=== PATIENT | male | born 1935 | race Caucasian/White ===

== ENCOUNTER → 2016-06-13 | Day surgery (SDC) | payer MEDICARE, MEDICAID ==
[~2016-06-13] VITALS: Ht 162.6 cm; Wt 67.1 kg
[~2016-06-13] MED LIST: /PANT40TA; /QUET10TA; ALBU17IN2; AMAR1TAB; AMAR1TAB5 PO; AMOX875T2 PO; AVOD0.5C; BACITAB3 PO; BACT800T5 PO; CIPR250T3; CITR1SOL PO; COLA100C PO; COLA100C2; CONRAY-60 60% 50ML VIAL (Q9961) As Ordered ONE; DEBR6.5S4 AU; DOXY-278 PO; DULC10SU2 PR; INSULANT; IPRASOL4 NEB; LASI40TA; LEVA250T; LR 1,000 ML IV SCH; METO10TA2; MILKSUS PO; MIRA33504 PO; MIRALEX; NOVOLOG100 MG/ML; NYSTATIN; OSCA200T PO; OYST500T; OYST500T76; OYSTER SHELL CA; PAXI30TA; PAXI30TA11 PO; PAXI40TA; PERI0.126 MT; PRAV40TA; PRAV40TA2 PO; PRIL20CA; PRIL20CA PO; QUET20XRTB; QUET20XRTB PO; QUET30TA; SENO8.6T10 PO; SIME125C; ceFAZolin 2 GM/D5W 50 ML IV BAG (J0690) As Ordered ONE
[2016-06-13 14:15] VITALS: BP 109/63
== END | disposition home or self-care (01) ==
LOC: M SDC 13:26
PROVIDERS: ATTEND Urology
DX: Z53.09 Procedure and treatment not carried out because of other contraindication (principal)
CPT/HCPCS: 36415; 86850; 86900; 86901; 87088; 87186; J0690

== ENCOUNTER 2016-06-26 10:42 | Emergency (ER) | payer MEDICARE, MEDICAID ==
[~2016-06-26] VITALS: Ht 162.6 cm; Wt 64.9 kg
[~2016-06-26 10:42] MED LIST changes: -CONRAY-60 60% 50ML VIAL (Q9961) As Ordered ONE; -LR 1,000 ML IV SCH; -PRIL20CA PO; +PRIL20CA9 PO; -ceFAZolin 2 GM/D5W 50 ML IV BAG (J0690) As Ordered ONE
[2016-06-26] MEDS ORDERED: ONDANSETRON 4MG/2ML VIAL (J2405) As Ordered ONE (11:32)
--- NOTE | 2016-06-26 12:10 | REP ---
Abdominal series: Three views. History: Abdominal pain. Findings: AP chest radiograph shows minimal interstitial fibrosis changes in the bases. No definite infiltrate is seen. Supine and cross-table lateral views of the abdomen show no evidence of free air. There is a right-sided percutaneous nephrostomy tube noted and surgical sutures are seen in the upper abdomen. There is formed stool in the proximal and distal colon including a mildly stool dilated rectum. There are degenerative facet changes in the lumbar spine. Impression: Constipation pattern with stool dilated rectum. Bibasilar interstitial fibrosis. Clips and sutures in the upper abdomen. A right nephrostomy tube. Signed by Antonio Brooks MD 06/26/2016 01:37 P
[2016-06-26 12:30] LABS: BASO % 0.1 % (0.0-1.0); LARGE UNSTAINED CELL # 0.2 K/mm3 (0.0-0.4); LARGE UNSTAINED CELL % 1.8 % (0.0-4.0); LYMPH # 0.6 K/mm3 (1.5-4.5); LYMPH % 4.6 % (24.0-44.0); MEAN CORPUSCULAR HEMOGLOBIN 28.6 pg (27.0-33.0); MEAN CORPUSCULAR HGB CONC 32.2 g/dl (32.0-36.5); MONO # 0.5 K/mm3 (0.0-0.8); MONO % 3.8 % (0.0-5.0); NEUTROPHILS # 11.4 K/mm3 (1.8-7.7); NEUTROPHILS % 89.7 % (36.0-66.0); PLATELET COUNT, AUTOMATED 276 k/mm3 (150-450); RED CELL DISTRIBUTION WIDTH 13.4 % (11.5-14.5); WHITE BLOOD COUNT 12.7 K/mm3 (4.0-10.0)
[2016-06-26 12:38] LABS: ALBUMIN 3.6 GM/DL (3.2-5.2); ALBUMIN/GLOBULIN RATIO 0.77 (1.00-1.93); ALKALINE PHOSPHATASE 116 U/L (45-117); ALT/SGPT 12 U/L (12-78); ANION GAP 11 MEQ/L (8-16); AST/SGOT 11 U/L (15-37); BILIRUBIN,DIRECT 0.1 MG/DL (0.0-0.2); BILIRUBIN,TOTAL 0.4 MG/DL (0.2-1.0); BLOOD UREA NITROGEN 35 MG/DL (7-18); CALCIUM LEVEL 9.2 MG/DL (8.8-10.2); CARBON DIOXIDE LEVEL 26 MEQ/L (21-32); CHLORIDE LEVEL 91 MEQ/L (98-107); CREATININE FOR GFR 2.08 MG/DL (0.70-1.30); GLOMERULAR FILTRATION RATE 32.6 (>35); POTASSIUM SERUM 4.8 MEQ/L (3.5-5.1); SODIUM LEVEL 128 MEQ/L (136-145); TOTAL PROTEIN 8.3 GM/DL (6.4-8.2)
[2016-06-26 12:40] LABS: GLUCOSE, FASTING 412 MG/DL (83-110)
[2016-06-26] MEDS ORDERED: HumuLIN R (REGULAR) INSULIN (NovoLIN R) **100U/ML** PER UNIT As Ordered ONE (12:53)
[2016-06-26] MEDS ORDERED: BISA10SU4 PR (17:04)
[2016-06-26] MEDS ORDERED: SENN1TAB2 PO (17:06)
[2016-06-26] MEDS ORDERED: BACT800T5 PO (17:06)
[2016-06-26] MEDS ORDERED: diphenhydrAMINE 25 MG CAP As Ordered ONE (18:27)
--- NOTE | 2016-06-26 18:45 | EDDOCDS ---
Nurse's Notes [facility] Name: Teddy Recio Age: 81 yrs Sex: Male : 1935 Arrival Date: 06/26/2016 Time: 10:42 Bed 8 Private MD: Diagnosis: Hypo-osmolality and hyponatremia;Hyperglycemia, unspecified;Nausea and vomiting;Constipation, unspecified;Other retention of urine Presentation: 06/26 11:11 Presenting complaint: Patient states: has hx of SBO - has been vomiting up brown bcj colored emesis today. no diarrhea. c/o upper abd pain when abd palpated. Adult Sepsis Screenin:11 Acuity: MAGEN Level 3 bc 11:11 Method Of Arrival: Ambulance j 11:15 Suicide/Homicide risk assessment- the patient denies having any suicidal and/or bcj homicidal ideations and does not present with any other emotional, behavioral or mental health complaints. Status: Patient is not a food service representative or dependent. Transition of care: patient was not received from another setting of care. 18:43 Adult Sepsis Screening: Patient's respiratory rate is less than 22. Systolic blood bcj pressure is greater than 100. Patient has a qSOFA score of 0- Negative Sepsis Screen. Triage Assessment: 11:17 General: Appears in no apparent distress, comfortable, Behavior is cooperative. Pain: bcj Location: epigastric area, right upper quadrant and left upper quadrant Pain currently is 5 out of 10 on a pain scale. GI: right nephrostomy tube intact to drainage bag on abdomen draining yellow urine. : Freedman in place to gravity drainage. Derm: Skin is pale, pink. Historical: - Allergies: no known allergies; - Home Meds: 1. Debrox 6.5 % Otic drop 1 drop each ear \T\HS every Sunday and Sunday 2. glimepiride 2 mg Oral tab 1 tab once daily 3. Dulcolax (bisacodyl) 10 mg Rectal supp 1 suppository once daily on day 4 without BM 4. Seroquel 200 mg Oral tab 1 tab once daily at 1630 5. pravastatin 40 mg oral tab 1 tab nightly 6. Colace 100 mg oral cap 1 cap 2 times per day 7. omeprazole 20 mg Oral cpDR 1 cap once daily 8. Paxil 20 mg Oral tab 1 tab nightly 9. Paxil 40 mg Oral tab 1 tab nightly 10. Miralax 17 gram Oral pwpk 1 packet once daily 11. chlorhexidine gluconate 0.12 % MM mwsh 15 mL 2 times per day 12. Milk of Magnesia 400 mg/5 mL Oral susp 15 mL PRN 13. Os-Ronald 500 + D3 500 mg(1,250mg) -200 unit oral tab 1 tab twice a day 14. senna 8.6 mg oral tab 1 tabs twice a day 15. Bacid oral cap twice a day 16. Bactrim DS 800-160 mg Oral tab 1 tab 2 times per day - PMHx: BPH; Diabetes - NIDDM: controlled; GERD; Hiatal Hernia; Hypercholesterolemia; Hypertension; [place]; MVP; Severe MR; - PSHx: TURP; - Social history: Smoking status: Patient states was never smoker of tobacco. No barriers to communication noted, The patient speaks fluent Khmer, Speaks appropriately for age. - Family history: Not pertinent. - : The pt / caregiver states he / she is not on anticoagulants. Home medication list is obtained from the facility MAR. - Exposure Risk Screening:: None identified. Screenin:43 Infection Control. deg 11:19 Screening information is obtained from residence staff. Fall risk: At risk due to bcj apparent cognitive impairment, The following interventions are performed due to a positive Fall Risk Screen: Fall Risk is added to Special Handling on the patient Summary Screen. A Fall Risk Bracelet was applied to the patient. Side Rails are placed in the up position. A Call Reed is given with instruction to call for help when getting out of bed. Fall Alert bracelet is placed on the patient. Assistance ADL's: Requires assistance with medication administration, assistance is provided by residence staff. Abuse/DV Screen: The patient / caregiver reports he/she is: not in a situation that causes fear, pain or injury. Nutritional screening: No deficits noted. Advance Directives: There is an active DNR order and the pt has a copy here at this time. home support is adequate. Assessment: 18:12 General: Appears in no apparent distress, comfortable, Behavior is cooperative. Pain: bcj Denies pain. GI: Bowel sounds present X 4 quads. Abd is soft and non tender X 4 quads. 18:41 General: Appears in no apparent distress, comfortable, Behavior is cooperative. Pain: bcj Denies pain. Respiratory: Airway is patent Respiratory effort is even, unlabored, Respiratory pattern is regular, Breath sounds are clear bilaterally. Derm: Rash noted that is red, on chest, abdomen, right arm, left arm, right leg and left leg. Vital Signs: 11:24 BP 144 / 84; Pulse 81; Resp 18; Temp 98.3(TE); Pulse Ox 94% on R/A; Weight 64.86 kg ct3 (R); Height 5 ft. 4 in. (162.56 cm) (R); 18:12 BP 134 / 64; Pulse 81; Resp 18; Temp 96.8(O); Pulse Ox 92% on R/A; Pain 0/10; bcj 11:24 Body Mass Index 24.55 (64.86 kg, 162.56 cm) ct3 Vitals: 11:17 Log In Time N/A - ambulance arrival. [facility] ED Course: 10:43 Patient visited by Mary Pettit, Surgical Dental Assistant. deg 10:43 Patient moved to Waiting deg 10:44 Kristi Fregoso MD is Attending Physician. fg 10:44 Patient moved to 8 deg 11:10 Patient visited by Kristi Fregoso MD. fg 11:13 Patient visited by Neo Whitley RN. bcj 11:13 Triage Initiated bcj 11:19 The patient / caregiver is instructed regarding the plan of care and ED course. bcj 11:20 Patient visited by Neo Whitley, HUGO. bcj 11:24 Accompanied by Caregiver, Patient has correct armband on for positive identification. ct3 Placed in gown. Bed in low position. Call light in reach. Side rails up X2. 11:25 Patient visited by Kerri العلي PCA. ct3 11:27 Patient visited by Neo Whitley, HUGO. bcj 12:06 Basic Metabolic Profile Sent. bcj 12:06 CBC with Diff Sent. bcj 12:06 Cardiac Injury Profile Sent. bcj 12:06 Lipase Sent. bcj 12:06 Liver Profile Sent. bcj 12:06 Troponin Sent. bcj 12:06 Urinalysis Sent. bcj 12:07 Urine Culture Sent. bcj 12:11 Patient visited by Neo Whitley, HUGO. bcj 12:33 Abdomen, Flat\E\Upright,PA Chest Returned. EDMS 12:58 Patient visited by Alcira Lawson RN. srm 14:29 Patient visited by Kerri العلي PCA. ct3 14:44 [facility] Payment Agreement was scanned into [employer] and attached to record. lg 15:13 Patient visited by Kerri العلي PCA. ct3 16:21 Patient visited by Kerri العلي PCA. ct3 16:51 Patient visited by Kerri العلي PCA. ct3 17:57 Patient visited by Kerri العلي PCA. ct3 17:57 Sterling Marcelino MD is Referral Physician. fg 18:12 No apparent distress. Resting quietly. Awaiting disposition. bcj 18:12 Inserted saline lock: 20 gauge. Labs drawn. (by ED staff). Sent per order to lab. bcj 18:14 Patient visited by Neo Whitley RN. bcj 18:41 No apparent distress. Resting quietly. Awaiting disposition. bcj 18:41 Discontinued lock intact. No procedures done that require assistance. bcj 18:44 Patient visited by Neo Whitley RN. bcj Administered Medications: 12:05 Drug: Ondansetron 4 mg Route: IVP; Site: left antecubital; bcj 12:06 Drug: NS 0.9% 500 ml [sodium chloride 0.9 % intravenous solution] Route: IV; Rate: bcj bolus; Site: left antecubital; 18:13 Follow up: IV Status: Completed infusion bcj 13:02 Drug: Insulin Regular Human 10 units [insulin regular human 100 unit/mL injection bcj solution (0.1 mL)] {Co-Signature: mk4 (Betzy North RN).} Route: IVP; Site: left antecubital; 17:33 Drug: NS 0.9% 500 ml [sodium chloride 0.9 % intravenous solution] Route: IV; Rate: bcj bolus; Site: left antecubital; 18:13 Follow up: IV Status: Completed infusion bcj 18:40 Drug: diphenhydrAMINE 25 mg [diphenhydramine 25 mg capsule (1 caps)] Route: PO; bcj Point of Care Testing: Blood Glucose: 18:05 Blood Glucose: 364 mg/dL; kcs Ranges: Order Results: Lab Order: Basic Metabolic Profile; SPEC'M 06/26/16 11:59 Test: GLUCOSE, FASTING; Value: 412; Range: 83-110; Abnormal: Above upper panic limits; Units: MG/DL; Status: F Test: BLOOD UREA NITROGEN; Value: 35; Range: 7-18; Abnormal: Above high normal; Units: MG/DL; Status: F Test: CREATININE FOR GFR; Value: 2.08; Range: 0.70-1.30; Abnormal: Above high normal; Units: MG/DL; Status: F Test: GLOMERULAR FILTRATION RATE; Value: 32.6; Range: >35; Abnormal: Below low normal; Status: F Test: SODIUM LEVEL; Value: 128; Range: 136-145; Abnormal: Below low normal; Units: MEQ/L; Status: F Test: POTASSIUM SERUM; Value: 4.8; Range: 3.5-5.1; Units: MEQ/L; Status: F Test: CHLORIDE LEVEL; Value: 91; Range: 98-107; Abnormal: Below low normal; Units: MEQ/L; Status: F Test: CARBON DIOXIDE LEVEL; Value: 26; Range: 21-32; Units: MEQ/L; Status: F Test: ANION GAP; Value: 11; Range: 8-16; Units: MEQ/L; Status: F Test: CALCIUM LEVEL; Value: 9.2; Range: 8.8-10.2; Units: MG/DL; Status: F Test Note: ; Units are mL/min/1.73 m2 Chronic Kidney Disease Staging per NKF: Stage I & II GFR >=60 Normal to Mildly Decreased Stage III GFR 30-59 Moderately Decreased Stage IV GFR 15-29 Severely Decreased Stage V GFR <15 Very Little GFR Left ESRD GFR <15 on ORDER DEPARTMENT SUPERVISOR Lab Order: CBC with Diff; SPEC'M 06/26/16 11:59 Test: WHITE BLOOD COUNT; Value: 12.7; Range: 4.0-10.0; Abnormal: Above high normal; Units: K/mm3; Status: F Test: RED BLOOD COUNT; Value: 4.26; Range: 4.30-6.10; Abnormal: Below low normal; Units: M/mm3; Status: F Test: HEMOGLOBIN; Value: 12.2; Range: 14.0-18.0; Abnormal: Below low normal; Units: g/dl; Status: F Test: HEMATOCRIT; Value: 37.9; Range: 42.0-52.0; Abnormal: Below low normal; Units: %; Status: F Test: MEAN CORPUSCULAR VOLUME; Value: 89.0; Range: 80.0-96.0; Units: fl; Status: F Test: MEAN CORPUSCULAR HEMOGLOBIN; Value: 28.6; Range: 27.0-33.0; Units: pg; Status: F Test: MEAN CORPUSCULAR HGB CONC; Value: 32.2; Range: 32.0-36.5; Units: g/dl; Status: F Test: RED CELL DISTRIBUTION WIDTH; Value: 13.4; Range: 11.5-14.5; Units: %; Status: F Test: PLATELET COUNT, AUTOMATED; Value: 276; Range: 150-450; Units: k/mm3; Status: F Test: NEUTROPHILS %; Value: 89.7; Range: 36.0-66.0; Abnormal: Above high normal; Units: %; Status: F Test: LYMPH %; Value: 4.6; Range: 24.0-44.0; Abnormal: Below low normal; Units: %; Status: F Test: MONO %; Value: 3.8; Range: 0.0-5.0; Units: %; Status: F Test: EOS %; Value: 0.0; Range: 0.0-3.0; Units: %; Status: F Test: BASO %; Value: 0.1; Range: 0.0-1.0; Units: %; Status: F Test: LARGE UNSTAINED CELL %; Value: 1.8; Range: 0.0-4.0; Units: %; Status: F Test: NEUTROPHILS #; Value: 11.4; Range: 1.8-7.7; Abnormal: Above high normal; Units: K/mm3; Status: F Test: LYMPH #; Value: 0.6; Range: 1.5-4.5; Abnormal: Below low normal; Units: K/mm3; Status: F Test: MONO #; Value: 0.5; Range: 0.0-0.8; Units: K/mm3; Status: F Test: EOS #; Value: 0.0; Range: 0.0-0.50; Units: K/mm3; Status: F Test: BASO #; Value: 0.0; Range: 0.0-0.2; Units: K/mm3; Status: F Test: LARGE UNSTAINED CELL #; Value: 0.2; Range: 0.0-0.4; Units: K/mm3; Status: F Lab Order: Cardiac Injury Profile; [facility]' 06/26/16 11:59 Test: CPK CREATINE PHOSPHOKINASE; Value: 33; Range: 39-308; Abnormal: Below low normal; Units: U/L; Status: F Test: CK-MB VALUE MASS; Value: 2.9; Range: 0.0-3.6; Units: NG/ML; Status: F Test: MB/CK RELATIVE INDEX; Value: 8.78; Range: < OR =4; Abnormal: Above high normal; Status: F Test Note: ; DIAGNOSIS CRITERIA MMB ng/ml Relative Index (RI) NON-AMI < or = 5 N/A PURDY ZONE > 5 < or = 4 AMI > 5 > 4 Lab Order: Lipase; [facility]' 06/26/16 11:59 Test: LIPASE; Value: 283; Range: 73-393; Units: U/L; Status: F Lab Order: Liver Profile; [facility]' 06/26/16 11:59 Test: AST/SGOT; Value: 11; Range: 15-37; Abnormal: Below low normal; Units: U/L; Status: F Test: ALT/SGPT; Value: 12; Range: 12-78; Units: U/L; Status: F Test: ALKALINE PHOSPHATASE; Value: 116; Range: 45-117; Units: U/L; Status: F Test: BILIRUBIN,TOTAL; Value: 0.4; Range: 0.2-1.0; Units: MG/DL; Status: F Test: BILIRUBIN,DIRECT; Value: 0.1; Range: 0.0-0.2; Units: MG/DL; Status: F Test: TOTAL PROTEIN; Value: 8.3; Range: 6.4-8.2; Abnormal: Above high normal; Units: GM/DL; Status: F Test: ALBUMIN; Value: 3.6; Range: 3.2-5.2; Units: GM/DL; Status: F Test: ALBUMIN/GLOBULIN RATIO; Value: 0.77; Range: 1.00-1.93; Abnormal: Below low normal; Status: F Lab Order: Troponin; SPEC'M 06/26/16 11:59 Test: TROPONIN I; Value: < 0.02; Range: < 0.10; Units: NG/ML; Status: F Test Note: ; Troponin I Reference Interval for Siemens [place] LOCI: 99th Percentile= 0.00-0.045 ng/ml Risk Stratification: <= 0.10 ng/ml Decreased Risk for Adverse Clinical Events. 0.10-1.50 ng/ml Increased Risk for Adverse Clinical Events. Evaluation of additional criterion and/or repeat testing in 2-6 hours is suggested to rule out myocardial damage. >= 1.50 ng/ml Indicative of Myocardial Injury. Lab Order: Urinalysis; SPEC'M 06/26/16 11:59 Test: APPEARANCE, URINE; Value: TURBID; Range: CLEAR; Abnormal: Above high normal; Status: F Test: COLOR, URINE; Value: YELLOW; Range: YELLOW; Status: F Test: PH,URINE; Value: 5.0; Range: 5.0-9.0; Units: UNITS; Status: F Test: SPECIFIC GRAVITY URINE AUTO; Value: 1.013; Range: 1.002-1.035; Status: F Test: PROTEIN, URINE AUTO; Value: 2+; Range: NEGATIVE; Abnormal: Above high normal; Units: mg/dL; Status: F Test: GLUCOSE, URINE (UA) AUTO; Value: 3+; Range: NEGATIVE; Abnormal: Above high normal; Units: mg/dL; Status: F Test: KETONE, URINE AUTO; Value: NEGATIVE; Range: NEGATIVE; Units: mg/dL; Status: F Test: UROBILINOGEN, URINE AUTO; Value: 0.2; Range: 0.0-2.0; Units: mg/dL; Status: F Test: BILIRUBIN, URINE AUTO; Value: NEGATIVE; Range: NEGATIVE; Status: F Test: NITRITE, URINE AUTO; Value: NEGATIVE; Range: NEGATIVE; Status: F Test: LEUKOCYTE ESTERASE, URINE AUTO; Value: 3+; Range: NEGATIVE; Abnormal: Above high normal; Status: F Test: BLOOD, URINE BLOOD; Value: 2+; Range: NEGATIVE; Abnormal: Above high normal; Status: F Test: WBC, URINE AUTO; Value: TNTC; Range: 0-3; Abnormal: Above high normal; Units: /HPF; Status: F Test: RBC, URINE AUTO; Value: 28; Range: 0-3; Abnormal: Above high normal; Units: /HPF; Status: F Test: BACTERIA, URINE AUTO; Value: 1+; Range: NEGATIVE; Abnormal: Above high normal; Status: F Test: SQUAMOUS EPITHELIAL CELL UR AU; Value: 3; Range: 0-6; Units: /HPF; Status: F Test: HYALINE CAST, URINE AUTO; Value: 0; Range: 0-1; Units: /LPF; Status: F Test: AMORPHOUS SEDIMENT; Value: SMALL; Range: NEGATIVE; Abnormal: Above high normal; Status: F Lab Order: Fingerstick Blood Sugar; SPEC'M 06/26/16 17:57 Test: BEDSIDE GLUCOSE; Value: 364; Range: 83-110; Abnormal: Above high normal; Units: MG/DL; Status: F Test Note: ; Dr Order not to Draw Doctor Notified Radiology Order: Abdomen, Flat\E\Upright,PA Chest Test: Abdomen, Flat\E\Upright,PA Chest REASON FOR EXAMINATION: Abdomen Pain; Abdominal series: Three views.; ; History: Abdominal pain.; ; Findings: AP chest radiograph shows minimal interstitial fibrosis changes in the; bases. No definite infiltrate is seen. Supine and cross-table lateral views of; the abdomen show no evidence of free air. There is a right-sided percutaneous; nephrostomy tube noted and surgical sutures are seen in the upper abdomen. There; is formed stool in the proximal and distal colon including a mildly stool dilated; rectum. There are degenerative facet changes in the lumbar spine.; ; Impression:; ; Constipation pattern with stool dilated rectum. Bibasilar interstitial; fibrosis. Clips and sutures in the upper abdomen. A right nephrostomy tube.; ; ; Signed by; Antonio Brooks MD 06/26/2016 01:37 P; Outcome: 18:00 Discharge ordered by Provider. fg 18:12 Discharge Assessment: patient administered narcotics - no. j 18:41 The following High Risk Discharge criteria are identified: None. Discharged to home [facility] ambulatory, with family. Condition: stable. Discharge instructions given to patient, Instructed on discharge instructions, follow up and referral plans. medication usage, Prescriptions given X 1. CT Study completed. Property :Personal belongings accompany Pt. 18:44 Patient left the ED. [facility] Signatures: Dispatcher [employer] EDYuly Diez, RN RN Mary Hooper, Surgical Dental Assistant Unit deg Neo Whitley RN RN Alcira Peters, RN RN srm Josafat Cartwright, Reg Reg lg العلي, Kerri, PROCESS CONTROL TECHNICIAN PROCESS CONTROL TECHNICIAN ct3 Kristi Fregoso MD MD Betzy North RN mk4 MTDD
--- NOTE | 2016-06-26 18:45 | EDDOCDS ---
Physician Documentation [facility] Name: Teddy Recio Age: 81 yrs Sex: Male : 1935 Arrival Date: 06/26/2016 Time: 10:42 Bed 8 Private MD: Disposition: 06/26/16 18:00 Discharged to Home/Self Care. Impression: Hypo-osmolality and hyponatremia, Hyperglycemia, unspecified, Nausea and vomiting, Constipation, unspecified, Other retention of urine. - Condition is Stable. - Discharge Instructions: Constipation, Adult, Nausea and Vomiting, [id number], Hyponatremia, [id number], Hyperglycemia, [id number]. - Medication Reconciliation, Local Pharmacy Hours form. - Follow up: Sterling Marcelino MD; When: Call to arrange an appointment; Reason: Continuance of care. - Problem is new. - Symptoms have improved. - Notes: You have been evalutaed for your nausea and vomitting and found to have urinary retention which was resolved when your duran was changed. Your lab results showed a low sodium of 128, we gave 500cc of normal saline. The hospitalist stated you did not have to be admitted for this. You had a high blood sugar that improved after insulin. Your CT showed some constipation so we discussed how you should likely have an enema to help with your constipation. Please follow up in 24 hours for a re-evaluation. Historical: - Allergies: no known allergies; - Home Meds: 1. Debrox 6.5 % Otic drop 1 drop each ear \T\HS every Sunday and Sunday 2. glimepiride 2 mg Oral tab 1 tab once daily 3. Dulcolax (bisacodyl) 10 mg Rectal supp 1 suppository once daily on day 4 without BM 4. Seroquel 200 mg Oral tab 1 tab once daily at 1630 5. pravastatin 40 mg oral tab 1 tab nightly 6. Colace 100 mg oral cap 1 cap 2 times per day 7. omeprazole 20 mg Oral cpDR 1 cap once daily 8. Paxil 20 mg Oral tab 1 tab nightly 9. Paxil 40 mg Oral tab 1 tab nightly 10. Miralax 17 gram Oral pwpk 1 packet once daily 11. chlorhexidine gluconate 0.12 % MM mwsh 15 mL 2 times per day 12. Milk of Magnesia 400 mg/5 mL Oral susp 15 mL PRN 13. Os-Ronald 500 + D3 500 mg(1,250mg) -200 unit oral tab 1 tab twice a day 14. senna 8.6 mg oral tab 1 tabs twice a day 15. Bacid oral cap twice a day 16. Bactrim DS 800-160 mg Oral tab 1 tab 2 times per day - PMHx: BPH; Diabetes - NIDDM: controlled; GERD; Hiatal Hernia; Hypercholesterolemia; Hypertension; [place]; MVP; Severe MR; - PSHx: TURP; - Social history: Smoking status: Patient states was never smoker of tobacco. No barriers to communication noted, The patient speaks fluent Albanian, Speaks appropriately for age. - Family history: Not pertinent. - : The pt / caregiver states he / she is not on anticoagulants. Home medication list is obtained from the facility MAR. - Exposure Risk Screening:: None identified. Vital Signs: 06/26 11:24 BP 144 / 84; Pulse 81; Resp 18; Temp 98.3(TE); Pulse Ox 94% on R/A; Weight 64.86 kg / ct3 142.99 lbs (R); Height 5 ft. 4 in. (162.56 cm) (R); 18:12 BP 134 / 64; Pulse 81; Resp 18; Temp 96.8(O); Pulse Ox 92% on R/A; Pain 0/10; bcj 11:24 Body Mass Index 24.55 (64.86 kg, 162.56 cm) ct3 MDM: 10:45 Undress patient appropriately for examination ordered. fg 10:45 Abdomen, Flat\E\Upright,PA Chest Ordered. EDMS 10:45 Basic Metabolic Profile Ordered. EDMS 10:45 CBC with Diff Ordered. EDMS 10:45 Cardiac Injury Profile Ordered. EDMS 10:45 Lipase Ordered. EDMS 10:45 Liver Profile Ordered. EDMS 10:45 Troponin Ordered. EDMS 10:45 Urinalysis Ordered. EDMS 10:45 Urine Culture Ordered. EDMS 10:46 NOTHING BY MOUTH+DIET ordered. EDMS 11:22 NS 0.9% 500 ml IV at bolus once ordered. fg 11:22 Ondansetron 4 mg IVP once ordered. fg 12:00 Financial registration complete. lg 12:41 Insulin Regular Human 10 units IVP once ordered. fg 13:14 CT ABD & PELVIS W/O CONTRAST Ordered. EDMS 14:44 [facility] Payment Agreement was scanned into [employer] and attached to record. lg 15:21 Duran ordered. fg 16:37 NS 0.9% 500 ml IV at bolus once ordered. fg 17:23 CLEAR LIQUID+DIET ordered. EDMS 18:08 Fingerstick Blood Sugar Ordered. EDMS 18:27 diphenhydrAMINE 25 mg PO once ordered. fg Point of Care Testing: Blood Glucose: 18:05 Blood Glucose: 364 mg/dL; kcs Ranges: Administered Medications: 12:05 Drug: Ondansetron 4 mg Route: IVP; Site: left antecubital; bcj 12:06 Drug: NS 0.9% 500 ml [sodium chloride 0.9 % intravenous solution] Route: IV; Rate: bcj bolus; Site: left antecubital; 18:13 Follow up: IV Status: Completed infusion bcj 13:02 Drug: Insulin Regular Human 10 units [insulin regular human 100 unit/mL injection bcj solution (0.1 mL)] {Co-Signature: mk4 (Betzy North RN).} Route: IVP; Site: left antecubital; 17:33 Drug: NS 0.9% 500 ml [sodium chloride 0.9 % intravenous solution] Route: IV; Rate: bcj bolus; Site: left antecubital; 18:13 Follow up: IV Status: Completed infusion bcj 18:40 Drug: diphenhydrAMINE 25 mg [diphenhydramine 25 mg capsule (1 caps)] Route: PO; bcj Signatures: Dispatcher [employer] EDNeo Lebron RN RN Josafat Metcalf, Reg Reg Kristi Fregoso MD MD Betzy North RN mk4 The chart was reviewed and I authenticate all verbal orders and agree with the evaluation and treatment provided.Corrections: (The following items were deleted from the chart) 13:14 10:46 CT ABD & PELVIS WITH CONTRAST+CT ordered. EDAK EDMS Attachments: 14:44 [facility] Payment Agreement lg MTDD
--- NOTE | 2016-06-26 20:47 | REP ---
CT of the abdomen and pelvis 06/26/2016 Indication: Pain Comparison: CT abdomen and pelvis 03/20/2016 per formed with IV contrast Findings: A large fluid-filled hiatal hernia of 10 cm maximal transverse dimension is unchanged. There is moderate gastric distension as well. The small bowel is without obstruction. Adrenal glands are normal. There is moderate left hydronephrosis and hydroureter with tapering of the distal left ureter above ureterovesical junction. There is mural thickening/mass in the region of the right bladder trigone again noted and not significantly changed. The patient has a right percutaneous nephrostomy this time. There is no evidence of right hydronephrosis. The small bowel is without obstruction. Abdominal aorta is of normal course and caliber. There are no pathologically enlarged retroperitoneal nodes. Significant bladder distension( measuring 21.6 cm cranial-caudal by 13 cm AP by 17.8 cm transverse dimension), is contributed to by mild prostatic hypertrophy. and mass within the right bladder trigone. There is no free air or ascites. Large amount of retained stool is identified throughout the colon with some sparing of the descending colon Impression 1. Significant bladder obstruction contributed to by thickening/mass within the right bladder trigone as well as prostatic hypertrophy with bladder outlet obstruction. Distended bladder measures 21.6 cm cranial-caudal by 13 cm AP by 17.8 cm transverse dimension . 2. Moderate left hydronephrosis and hydroureter tapering above the left ureterovesical junction. 3. Prior right percutaneous nephrostomy, in place. No right hydronephrosis. 4. Large amount of colonic constipation with sparing of the the descending colon. 5. 10 cm hiatal hernia, containing fluid, not significantly changed from prior study 03/20/16. Case discussed with Dr. Fregoso in Emergency Department 06/26/2016 at 02:08 p.m. Signed by Nannette Castañeda MD 06/26/2016 08:38 P
--- NOTE | 2016-06-28 19:45 | EDDOCDS ---
Physician Documentation [facility] Name: Teddy Recio Age: 81 yrs Sex: Male : 1935 Arrival Date: 06/26/2016 Time: 10:42 Bed 8 Private MD: Disposition: 06/26/16 18:00 Discharged to Home/Self Care. Impression: Hypo-osmolality and hyponatremia, Hyperglycemia, unspecified, Nausea and vomiting, Constipation, unspecified, Other retention of urine. - Condition is Stable. - Discharge Instructions: Constipation, Adult, Nausea and Vomiting, Ezyh-[id number]-[id number], Hyponatremia, Iuyj-nw-[id number], Hyperglycemia, Wksc-gz-Kgtk. - Medication Reconciliation, Local Pharmacy Hours form. - Follow up: Sterling Marcelino MD; When: Call to arrange an appointment; Reason: Continuance of care. - Problem is new. - Symptoms have improved. - Notes: You have been evalutaed for your nausea and vomitting and found to have urinary retention which was resolved when your duran was changed. Your lab results showed a low sodium of 128, we gave 500cc of normal saline. The hospitalist stated you did not have to be admitted for this. You had a high blood sugar that improved after insulin. Your CT showed some constipation so we discussed how you should likely have an enema to help with your constipation. Please follow up in 24 hours for a re-evaluation. Historical: - Allergies: no known allergies; - Home Meds: 1. Debrox 6.5 % Otic drop 1 drop each ear \T\HS every Sunday and Sunday 2. glimepiride 2 mg Oral tab 1 tab once daily 3. Dulcolax (bisacodyl) 10 mg Rectal supp 1 suppository once daily on day 4 without BM 4. Seroquel 200 mg Oral tab 1 tab once daily at 1630 5. pravastatin 40 mg oral tab 1 tab nightly 6. Colace 100 mg oral cap 1 cap 2 times per day 7. omeprazole 20 mg Oral cpDR 1 cap once daily 8. Paxil 20 mg Oral tab 1 tab nightly 9. Paxil 40 mg Oral tab 1 tab nightly 10. Miralax 17 gram Oral pwpk 1 packet once daily 11. chlorhexidine gluconate 0.12 % MM mwsh 15 mL 2 times per day 12. Milk of Magnesia 400 mg/5 mL Oral susp 15 mL PRN 13. Os-Ronald 500 + D3 500 mg(1,250mg) -200 unit oral tab 1 tab twice a day 14. senna 8.6 mg oral tab 1 tabs twice a day 15. Bacid oral cap twice a day 16. Bactrim DS 800-160 mg Oral tab 1 tab 2 times per day - PMHx: BPH; Diabetes - NIDDM: controlled; GERD; Hiatal Hernia; Hypercholesterolemia; Hypertension; VT; MVP; Severe MR; - PSHx: TURP; - Social history: Smoking status: Patient states was never smoker of tobacco. No barriers to communication noted, The patient speaks fluent Kinyarwanda, Speaks appropriately for age. - Family history: Not pertinent. - : The pt / caregiver states he / she is not on anticoagulants. Home medication list is obtained from the facility MAR. - Exposure Risk Screening:: None identified. Vital Signs: 06/26 11:24 BP 144 / 84; Pulse 81; Resp 18; Temp 98.3(TE); Pulse Ox 94% on R/A; Weight 64.86 kg / ct3 142.99 lbs (R); Height 5 ft. 4 in. (162.56 cm) (R); 18:12 BP 134 / 64; Pulse 81; Resp 18; Temp 96.8(O); Pulse Ox 92% on R/A; Pain 0/10; bcj 11:24 Body Mass Index 24.55 (64.86 kg, 162.56 cm) ct3 MDM: 10:45 Undress patient appropriately for examination ordered. fg 10:45 Abdomen, Flat\E\Upright,PA Chest Ordered. EDMS 10:45 Basic Metabolic Profile Ordered. EDMS 10:45 CBC with Diff Ordered. EDMS 10:45 Cardiac Injury Profile Ordered. EDMS 10:45 Lipase Ordered. EDMS 10:45 Liver Profile Ordered. EDMS 10:45 Troponin Ordered. EDMS 10:45 Urinalysis Ordered. EDMS 10:45 Urine Culture Ordered. EDMS 10:46 NOTHING BY MOUTH+DIET ordered. EDMS 11:22 NS 0.9% 500 ml IV at bolus once ordered. fg 11:22 Ondansetron 4 mg IVP once ordered. fg 12:00 Financial registration complete. lg 12:41 Insulin Regular Human 10 units IVP once ordered. fg 13:14 CT ABD & PELVIS W/O CONTRAST Ordered. EDMS 14:44 [facility] Payment Agreement was scanned into Nitro and attached to record. lg 15:21 Duran ordered. fg 16:37 NS 0.9% 500 ml IV at bolus once ordered. fg 17:23 CLEAR LIQUID+DIET ordered. EDMS 18:08 Fingerstick Blood Sugar Ordered. EDMS 18:27 diphenhydrAMINE 25 mg PO once ordered. fg 06/27 11:48 T-Sheet-- Draft Copy was scanned into Nitro and attached to record. Point of Care Testing: Blood Glucose: 06/26 18:05 Blood Glucose: 364 mg/dL; kcs Ranges: Administered Medications: 12:05 Drug: Ondansetron 4 mg Route: IVP; Site: left antecubital; bcj 12:06 Drug: NS 0.9% 500 ml [sodium chloride 0.9 % intravenous solution] Route: IV; Rate: bcj bolus; Site: left antecubital; 18:13 Follow up: IV Status: Completed infusion bcj 13:02 Drug: Insulin Regular Human 10 units [insulin regular human 100 unit/mL injection bcj solution (0.1 mL)] {Co-Signature: [email or web address] (Betzy North RN).} Route: IVP; Site: left antecubital; 17:33 Drug: NS 0.9% 500 ml [sodium chloride 0.9 % intravenous solution] Route: IV; Rate: bcj bolus; Site: left antecubital; 18:13 Follow up: IV Status: Completed infusion bcj 18:40 Drug: diphenhydrAMINE 25 mg [diphenhydramine 25 mg capsule (1 caps)] Route: PO; bcj Signatures: Dispatcher [employer] EDMS Neo Whitley RN RN bcMichelle Cerrato, Reg Reg Josafat Sanders, Reg Reg Kristi Houston MD MD Betzy North RN [email or web address] The chart was reviewed and I authenticate all verbal orders and agree with the evaluation and treatment provided.Corrections: (The following items were deleted from the chart) 13:14 10:46 CT ABD & PELVIS WITH CONTRAST+CT ordered. EDMS EDMS Attachments: 14:44 [facility] Payment Agreement 06/27 11:48 T-Sheet-- Draft Copy gb Chart Complete MTDD
--- NOTE | 2016-06-28 19:45 | EDDOCDS ---
Physician Documentation [facility] Name: Teddy Recio Age: 81 yrs Sex: Male : 1935 Arrival Date: 06/26/2016 Time: 10:42 Bed 8 Private MD: Disposition: 06/26/16 18:00 Discharged to Home/Self Care. Impression: Hypo-osmolality and hyponatremia, Hyperglycemia, unspecified, Nausea and vomiting, Constipation, unspecified, Other retention of urine. - Condition is Stable. - Discharge Instructions: Constipation, Adult, Nausea and Vomiting, Jyta-ax-Sajs, Hyponatremia, Xuua-id-Cfam, Hyperglycemia, Jkcp-nb-Noak. - Medication Reconciliation, Local Pharmacy Hours form. - Follow up: Sterling Marcelino MD; When: Call to arrange an appointment; Reason: Continuance of care. - Problem is new. - Symptoms have improved. - Notes: You have been evalutaed for your nausea and vomitting and found to have urinary retention which was resolved when your duran was changed. Your lab results showed a low sodium of 128, we gave 500cc of normal saline. The hospitalist stated you did not have to be admitted for this. You had a high blood sugar that improved after insulin. Your CT showed some constipation so we discussed how you should likely have an enema to help with your constipation. Please follow up in 24 hours for a re-evaluation. Historical: - Allergies: no known allergies; - Home Meds: 1. Debrox 6.5 % Otic drop 1 drop each ear \T\HS every Sunday and Sunday 2. glimepiride 2 mg Oral tab 1 tab once daily 3. Dulcolax (bisacodyl) 10 mg Rectal supp 1 suppository once daily on day 4 without BM 4. Seroquel 200 mg Oral tab 1 tab once daily at 1630 5. pravastatin 40 mg oral tab 1 tab nightly 6. Colace 100 mg oral cap 1 cap 2 times per day 7. omeprazole 20 mg Oral cpDR 1 cap once daily 8. Paxil 20 mg Oral tab 1 tab nightly 9. Paxil 40 mg Oral tab 1 tab nightly 10. Miralax 17 gram Oral pwpk 1 packet once daily 11. chlorhexidine gluconate 0.12 % MM mwsh 15 mL 2 times per day 12. Milk of Magnesia 400 mg/5 mL Oral susp 15 mL PRN 13. Os-Ronald 500 + D3 500 mg(1,250mg) -200 unit oral tab 1 tab twice a day 14. senna 8.6 mg oral tab 1 tabs twice a day 15. Bacid oral cap twice a day 16. Bactrim DS 800-160 mg Oral tab 1 tab 2 times per day - PMHx: BPH; Diabetes - NIDDM: controlled; GERD; Hiatal Hernia; Hypercholesterolemia; Hypertension; AK; MVP; Severe MR; - PSHx: TURP; - Social history: Smoking status: Patient states was never smoker of tobacco. No barriers to communication noted, The patient speaks fluent Malay, Speaks appropriately for age. - Family history: Not pertinent. - : The pt / caregiver states he / she is not on anticoagulants. Home medication list is obtained from the facility MAR. - Exposure Risk Screening:: None identified. Vital Signs: 06/26 11:24 BP 144 / 84; Pulse 81; Resp 18; Temp 98.3(TE); Pulse Ox 94% on R/A; Weight 64.86 kg / ct3 142.99 lbs (R); Height 5 ft. 4 in. (162.56 cm) (R); 18:12 BP 134 / 64; Pulse 81; Resp 18; Temp 96.8(O); Pulse Ox 92% on R/A; Pain 0/10; bcj 11:24 Body Mass Index 24.55 (64.86 kg, 162.56 cm) ct3 MDM: 10:45 Undress patient appropriately for examination ordered. fg 10:45 Abdomen, Flat\E\Upright,PA Chest Ordered. EDMS 10:45 Basic Metabolic Profile Ordered. EDMS 10:45 CBC with Diff Ordered. EDMS 10:45 Cardiac Injury Profile Ordered. EDMS 10:45 Lipase Ordered. EDMS 10:45 Liver Profile Ordered. EDMS 10:45 Troponin Ordered. EDMS 10:45 Urinalysis Ordered. EDMS 10:45 Urine Culture Ordered. EDMS 10:46 NOTHING BY MOUTH+DIET ordered. EDMS 11:22 NS 0.9% 500 ml IV at bolus once ordered. fg 11:22 Ondansetron 4 mg IVP once ordered. fg 12:00 Financial registration complete. lg 12:41 Insulin Regular Human 10 units IVP once ordered. fg 13:14 CT ABD & PELVIS W/O CONTRAST Ordered. EDMS 14:44 [facility] Payment Agreement was scanned into GBS and attached to record. lg 15:21 Duran ordered. fg 16:37 NS 0.9% 500 ml IV at bolus once ordered. fg 17:23 CLEAR LIQUID+DIET ordered. EDMS 18:08 Fingerstick Blood Sugar Ordered. EDMS 18:27 diphenhydrAMINE 25 mg PO once ordered. fg 06/27 11:48 T-Sheet-- Draft Copy was scanned into GBS and attached to record. Point of Care Testing: Blood Glucose: 06/26 18:05 Blood Glucose: 364 mg/dL; kcs Ranges: Administered Medications: 12:05 Drug: Ondansetron 4 mg Route: IVP; Site: left antecubital; bcj 12:06 Drug: NS 0.9% 500 ml [sodium chloride 0.9 % intravenous solution] Route: IV; Rate: bcj bolus; Site: left antecubital; 18:13 Follow up: IV Status: Completed infusion bcj 13:02 Drug: Insulin Regular Human 10 units [insulin regular human 100 unit/mL injection bcj solution (0.1 mL)] {Co-Signature: [email or web address] (Betzy North RN).} Route: IVP; Site: left antecubital; 17:33 Drug: NS 0.9% 500 ml [sodium chloride 0.9 % intravenous solution] Route: IV; Rate: bcj bolus; Site: left antecubital; 18:13 Follow up: IV Status: Completed infusion bcj 18:40 Drug: diphenhydrAMINE 25 mg [diphenhydramine 25 mg capsule (1 caps)] Route: PO; bcj Signatures: Dispatcher [employer] EDMS Neo Whitley RN RN bcMichelle Cerrato, Reg Reg Josafat Sanders, Reg Reg Kristi Houston MD MD Betzy North RN [email or web address] The chart was reviewed and I authenticate all verbal orders and agree with the evaluation and treatment provided.Corrections: (The following items were deleted from the chart) 13:14 10:46 CT ABD & PELVIS WITH CONTRAST+CT ordered. EDMS EDMS Attachments: 14:44 [facility] Payment Agreement 06/27 11:48 T-Sheet-- Draft Copy gb Chart Complete MTDD
--- NOTE | 2016-06-28 19:45 | EDDOCDS ---
Nurse's Notes [facility] Name: Teddy Recio Age: 81 yrs Sex: Male : 1935 Arrival Date: 06/26/2016 Time: 10:42 Bed 8 Private MD: Diagnosis: Hypo-osmolality and hyponatremia;Hyperglycemia, unspecified;Nausea and vomiting;Constipation, unspecified;Other retention of urine Presentation: 06/26 11:11 Presenting complaint: Patient states: has hx of SBO - has been vomiting up brown bcj colored emesis today. no diarrhea. c/o upper abd pain when abd palpated. Adult Sepsis Screenin:11 Acuity: MAGEN Level 3 bc 11:11 Method Of Arrival: Ambulance j 11:15 Suicide/Homicide risk assessment- the patient denies having any suicidal and/or bcj homicidal ideations and does not present with any other emotional, behavioral or mental health complaints. Status: Patient is not a assessment services manager or dependent. Transition of care: patient was not received from another setting of care. 18:43 Adult Sepsis Screening: Patient's respiratory rate is less than 22. Systolic blood bcj pressure is greater than 100. Patient has a qSOFA score of 0- Negative Sepsis Screen. Triage Assessment: 11:17 General: Appears in no apparent distress, comfortable, Behavior is cooperative. Pain: bcj Location: epigastric area, right upper quadrant and left upper quadrant Pain currently is 5 out of 10 on a pain scale. GI: right nephrostomy tube intact to drainage bag on abdomen draining yellow urine. : Freedman in place to gravity drainage. Derm: Skin is pale, pink. Historical: - Allergies: no known allergies; - Home Meds: 1. Debrox 6.5 % Otic drop 1 drop each ear \T\HS every Sunday and Sunday 2. glimepiride 2 mg Oral tab 1 tab once daily 3. Dulcolax (bisacodyl) 10 mg Rectal supp 1 suppository once daily on day 4 without BM 4. Seroquel 200 mg Oral tab 1 tab once daily at 1630 5. pravastatin 40 mg oral tab 1 tab nightly 6. Colace 100 mg oral cap 1 cap 2 times per day 7. omeprazole 20 mg Oral cpDR 1 cap once daily 8. Paxil 20 mg Oral tab 1 tab nightly 9. Paxil 40 mg Oral tab 1 tab nightly 10. Miralax 17 gram Oral pwpk 1 packet once daily 11. chlorhexidine gluconate 0.12 % MM mwsh 15 mL 2 times per day 12. Milk of Magnesia 400 mg/5 mL Oral susp 15 mL PRN 13. Os-Ronald 500 + D3 500 mg(1,250mg) -200 unit oral tab 1 tab twice a day 14. senna 8.6 mg oral tab 1 tabs twice a day 15. Bacid oral cap twice a day 16. Bactrim DS 800-160 mg Oral tab 1 tab 2 times per day - PMHx: BPH; Diabetes - NIDDM: controlled; GERD; Hiatal Hernia; Hypercholesterolemia; Hypertension; [place]; MVP; Severe MR; - PSHx: TURP; - Social history: Smoking status: Patient states was never smoker of tobacco. No barriers to communication noted, The patient speaks fluent [place], Speaks appropriately for age. - Family history: Not pertinent. - : The pt / caregiver states he / she is not on anticoagulants. Home medication list is obtained from the facility MAR. - Exposure Risk Screening:: None identified. Screenin:43 Infection Control. deg 11:19 Screening information is obtained from residence staff. Fall risk: At risk due to bcj apparent cognitive impairment, The following interventions are performed due to a positive Fall Risk Screen: Fall Risk is added to Special Handling on the patient Summary Screen. A Fall Risk Bracelet was applied to the patient. Side Rails are placed in the up position. A Call Reed is given with instruction to call for help when getting out of bed. Fall Alert bracelet is placed on the patient. Assistance ADL's: Requires assistance with medication administration, assistance is provided by residence staff. Abuse/DV Screen: The patient / caregiver reports he/she is: not in a situation that causes fear, pain or injury. Nutritional screening: No deficits noted. Advance Directives: There is an active DNR order and the pt has a copy here at this time. home support is adequate. Assessment: 18:12 General: Appears in no apparent distress, comfortable, Behavior is cooperative. Pain: bcj Denies pain. GI: Bowel sounds present X 4 quads. Abd is soft and non tender X 4 quads. 18:41 General: Appears in no apparent distress, comfortable, Behavior is cooperative. Pain: bcj Denies pain. Respiratory: Airway is patent Respiratory effort is even, unlabored, Respiratory pattern is regular, Breath sounds are clear bilaterally. Derm: Rash noted that is red, on chest, abdomen, right arm, left arm, right leg and left leg. Vital Signs: 11:24 BP 144 / 84; Pulse 81; Resp 18; Temp 98.3(TE); Pulse Ox 94% on R/A; Weight 64.86 kg ct3 (R); Height 5 ft. 4 in. (162.56 cm) (R); 18:12 BP 134 / 64; Pulse 81; Resp 18; Temp 96.8(O); Pulse Ox 92% on R/A; Pain 0/10; bcj 11:24 Body Mass Index 24.55 (64.86 kg, 162.56 cm) ct3 Vitals: 11:17 Log In Time N/A - ambulance arrival. [facility] ED Course: 10:43 Patient visited by Mary Pettit, Water Pipe Installer. deg 10:43 Patient moved to Waiting deg 10:44 Kristi Fregoso MD is Attending Physician. fg 10:44 Patient moved to 8 deg 11:10 Patient visited by Kristi Fregoso MD. fg 11:13 Patient visited by Neo Whitley RN. bcj 11:13 Triage Initiated bcj 11:19 The patient / caregiver is instructed regarding the plan of care and ED course. bcj 11:20 Patient visited by Neo Whitley, HUGO. bcj 11:24 Accompanied by Caregiver, Patient has correct armband on for positive identification. ct3 Placed in gown. Bed in low position. Call light in reach. Side rails up X2. 11:25 Patient visited by Kerri العلي PCA. ct3 11:27 Patient visited by Neo Whitley, HUGO. bcj 12:06 Basic Metabolic Profile Sent. bcj 12:06 CBC with Diff Sent. bcj 12:06 Cardiac Injury Profile Sent. bcj 12:06 Lipase Sent. bcj 12:06 Liver Profile Sent. bcj 12:06 Troponin Sent. bcj 12:06 Urinalysis Sent. bcj 12:07 Urine Culture Sent. bcj 12:11 Patient visited by Neo Whitley, HUGO. bcj 12:33 Abdomen, Flat\E\Upright,PA Chest Returned. EDMS 12:58 Patient visited by Alcira Lawson RN. srm 14:29 Patient visited by Kerri العلي PCA. ct3 14:44 [facility] Payment Agreement was scanned into [employer] and attached to record. lg 15:13 Patient visited by Kerri العلي PCA. ct3 16:21 Patient visited by Kerri العلي PCA. ct3 16:51 Patient visited by Kerri العلي PCA. ct3 17:57 Patient visited by Kerri العلي PCA. ct3 17:57 Sterling Marcelino MD is Referral Physician. fg 18:12 No apparent distress. Resting quietly. Awaiting disposition. bcj 18:12 Inserted saline lock: 20 gauge. Labs drawn. (by ED staff). Sent per order to lab. bcj 18:14 Patient visited by Neo Whitley RN. bcj 18:41 No apparent distress. Resting quietly. Awaiting disposition. bcj 18:41 Discontinued lock intact. No procedures done that require assistance. bcj 18:44 Patient visited by Neo Whitley RN. bcj 21:25 CT ABD & PELVIS W/O CONTRAST Returned. EDMS 06/27 11:48 T-Sheet-- Draft Copy was scanned into [employer] and attached to record. gb Administered Medications: 06/26 12:05 Drug: Ondansetron 4 mg Route: IVP; Site: left antecubital; bcj 12:06 Drug: NS 0.9% 500 ml [sodium chloride 0.9 % intravenous solution] Route: IV; Rate: bcj bolus; Site: left antecubital; 18:13 Follow up: IV Status: Completed infusion bcj 13:02 Drug: Insulin Regular Human 10 units [insulin regular human 100 unit/mL injection bcj solution (0.1 mL)] {Co-Signature: mk4 (Betzy North RN).} Route: IVP; Site: left antecubital; 17:33 Drug: NS 0.9% 500 ml [sodium chloride 0.9 % intravenous solution] Route: IV; Rate: bcj bolus; Site: left antecubital; 18:13 Follow up: IV Status: Completed infusion bcj 18:40 Drug: diphenhydrAMINE 25 mg [diphenhydramine 25 mg capsule (1 caps)] Route: PO; [facility] Point of Care Testing: Blood Glucose: 18:05 Blood Glucose: 364 mg/dL; kcs Ranges: Order Results: Lab Order: Basic Metabolic Profile; SPEC'M 06/26/16 11:59 Test: GLUCOSE, FASTING; Value: 412; Range: 83-110; Abnormal: Above upper panic limits; Units: MG/DL; Status: F Test: BLOOD UREA NITROGEN; Value: 35; Range: 7-18; Abnormal: Above high normal; Units: MG/DL; Status: F Test: CREATININE FOR GFR; Value: 2.08; Range: 0.70-1.30; Abnormal: Above high normal; Units: MG/DL; Status: F Test: GLOMERULAR FILTRATION RATE; Value: 32.6; Range: >35; Abnormal: Below low normal; Status: F Test: SODIUM LEVEL; Value: 128; Range: 136-145; Abnormal: Below low normal; Units: MEQ/L; Status: F Test: POTASSIUM SERUM; Value: 4.8; Range: 3.5-5.1; Units: MEQ/L; Status: F Test: CHLORIDE LEVEL; Value: 91; Range: 98-107; Abnormal: Below low normal; Units: MEQ/L; Status: F Test: CARBON DIOXIDE LEVEL; Value: 26; Range: 21-32; Units: MEQ/L; Status: F Test: ANION GAP; Value: 11; Range: 8-16; Units: MEQ/L; Status: F Test: CALCIUM LEVEL; Value: 9.2; Range: 8.8-10.2; Units: MG/DL; Status: F Test Note: ; Units are mL/min/1.73 m2 Chronic Kidney Disease Staging per NKF: Stage I & II GFR >=60 Normal to Mildly Decreased Stage III GFR 30-59 Moderately Decreased Stage IV GFR 15-29 Severely Decreased Stage V GFR <15 Very Little GFR Left ESRD GFR <15 on [employer]AL [employer] Lab Order: CBC with Diff; SPEC'M 06/26/16 11:59 Test: WHITE BLOOD COUNT; Value: 12.7; Range: 4.0-10.0; Abnormal: Above high normal; Units: K/mm3; Status: F Test: RED BLOOD COUNT; Value: 4.26; Range: 4.30-6.10; Abnormal: Below low normal; Units: M/mm3; Status: F Test: HEMOGLOBIN; Value: 12.2; Range: 14.0-18.0; Abnormal: Below low normal; Units: g/dl; Status: F Test: HEMATOCRIT; Value: 37.9; Range: 42.0-52.0; Abnormal: Below low normal; Units: %; Status: F Test: MEAN CORPUSCULAR VOLUME; Value: 89.0; Range: 80.0-96.0; Units: fl; Status: F Test: MEAN CORPUSCULAR HEMOGLOBIN; Value: 28.6; Range: 27.0-33.0; Units: pg; Status: F Test: MEAN CORPUSCULAR HGB CONC; Value: 32.2; Range: 32.0-36.5; Units: g/dl; Status: F Test: RED CELL DISTRIBUTION WIDTH; Value: 13.4; Range: 11.5-14.5; Units: %; Status: F Test: PLATELET COUNT, AUTOMATED; Value: 276; Range: 150-450; Units: k/mm3; Status: F Test: NEUTROPHILS %; Value: 89.7; Range: 36.0-66.0; Abnormal: Above high normal; Units: %; Status: F Test: LYMPH %; Value: 4.6; Range: 24.0-44.0; Abnormal: Below low normal; Units: %; Status: F Test: MONO %; Value: 3.8; Range: 0.0-5.0; Units: %; Status: F Test: EOS %; Value: 0.0; Range: 0.0-3.0; Units: %; Status: F Test: BASO %; Value: 0.1; Range: 0.0-1.0; Units: %; Status: F Test: LARGE UNSTAINED CELL %; Value: 1.8; Range: 0.0-4.0; Units: %; Status: F Test: NEUTROPHILS #; Value: 11.4; Range: 1.8-7.7; Abnormal: Above high normal; Units: K/mm3; Status: F Test: LYMPH #; Value: 0.6; Range: 1.5-4.5; Abnormal: Below low normal; Units: K/mm3; Status: F Test: MONO #; Value: 0.5; Range: 0.0-0.8; Units: K/mm3; Status: F Test: EOS #; Value: 0.0; Range: 0.0-0.50; Units: K/mm3; Status: F Test: BASO #; Value: 0.0; Range: 0.0-0.2; Units: K/mm3; Status: F Test: LARGE UNSTAINED CELL #; Value: 0.2; Range: 0.0-0.4; Units: K/mm3; Status: F Lab Order: Cardiac Injury Profile; [facility]' 06/26/16 11:59 Test: CPK CREATINE PHOSPHOKINASE; Value: 33; Range: 39-308; Abnormal: Below low normal; Units: U/L; Status: F Test: CK-MB VALUE MASS; Value: 2.9; Range: 0.0-3.6; Units: NG/ML; Status: F Test: MB/CK RELATIVE INDEX; Value: 8.78; Range: < OR =4; Abnormal: Above high normal; Status: F Test Note: ; DIAGNOSIS CRITERIA MMB ng/ml Relative Index (RI) NON-AMI < or = 5 N/A PURDY ZONE > 5 < or = 4 AMI > 5 > 4 Lab Order: Lipase; [facility] 06/26/16 11:59 Test: LIPASE; Value: 283; Range: 73-393; Units: U/L; Status: F Lab Order: Liver Profile; [facility] 06/26/16 11:59 Test: AST/SGOT; Value: 11; Range: 15-37; Abnormal: Below low normal; Units: U/L; Status: F Test: ALT/SGPT; Value: 12; Range: 12-78; Units: U/L; Status: F Test: ALKALINE PHOSPHATASE; Value: 116; Range: 45-117; Units: U/L; Status: F Test: BILIRUBIN,TOTAL; Value: 0.4; Range: 0.2-1.0; Units: MG/DL; Status: F Test: BILIRUBIN,DIRECT; Value: 0.1; Range: 0.0-0.2; Units: MG/DL; Status: F Test: TOTAL PROTEIN; Value: 8.3; Range: 6.4-8.2; Abnormal: Above high normal; Units: GM/DL; Status: F Test: ALBUMIN; Value: 3.6; Range: 3.2-5.2; Units: GM/DL; Status: F Test: ALBUMIN/GLOBULIN RATIO; Value: 0.77; Range: 1.00-1.93; Abnormal: Below low normal; Status: F Lab Order: Troponin; SPEC'M 06/26/16 11:59 Test: TROPONIN I; Value: < 0.02; Range: < 0.10; Units: NG/ML; Status: F Test Note: ; Troponin I Reference Interval for Siemens MyDocTime LOCI: 99th Percentile= 0.00-0.045 ng/ml Risk Stratification: <= 0.10 ng/ml Decreased Risk for Adverse Clinical Events. 0.10-1.50 ng/ml Increased Risk for Adverse Clinical Events. Evaluation of additional criterion and/or repeat testing in 2-6 hours is suggested to rule out myocardial damage. >= 1.50 ng/ml Indicative of Myocardial Injury. Lab Order: Urinalysis; SPEC'M 06/26/16 11:59 Test: APPEARANCE, URINE; Value: TURBID; Range: CLEAR; Abnormal: Above high normal; Status: F Test: COLOR, URINE; Value: YELLOW; Range: YELLOW; Status: F Test: PH,URINE; Value: 5.0; Range: 5.0-9.0; Units: UNITS; Status: F Test: SPECIFIC GRAVITY URINE AUTO; Value: 1.013; Range: 1.002-1.035; Status: F Test: PROTEIN, URINE AUTO; Value: 2+; Range: NEGATIVE; Abnormal: Above high normal; Units: mg/dL; Status: F Test: GLUCOSE, URINE (UA) AUTO; Value: 3+; Range: NEGATIVE; Abnormal: Above high normal; Units: mg/dL; Status: F Test: KETONE, URINE AUTO; Value: NEGATIVE; Range: NEGATIVE; Units: mg/dL; Status: F Test: UROBILINOGEN, URINE AUTO; Value: 0.2; Range: 0.0-2.0; Units: mg/dL; Status: F Test: BILIRUBIN, URINE AUTO; Value: NEGATIVE; Range: NEGATIVE; Status: F Test: NITRITE, URINE AUTO; Value: NEGATIVE; Range: NEGATIVE; Status: F Test: LEUKOCYTE ESTERASE, URINE AUTO; Value: 3+; Range: NEGATIVE; Abnormal: Above high normal; Status: F Test: BLOOD, URINE BLOOD; Value: 2+; Range: NEGATIVE; Abnormal: Above high normal; Status: F Test: WBC, URINE AUTO; Value: TNTC; Range: 0-3; Abnormal: Above high normal; Units: /HPF; Status: F Test: RBC, URINE AUTO; Value: 28; Range: 0-3; Abnormal: Above high normal; Units: /HPF; Status: F Test: BACTERIA, URINE AUTO; Value: 1+; Range: NEGATIVE; Abnormal: Above high normal; Status: F Test: SQUAMOUS EPITHELIAL CELL UR AU; Value: 3; Range: 0-6; Units: /HPF; Status: F Test: HYALINE CAST, URINE AUTO; Value: 0; Range: 0-1; Units: /LPF; Status: F Test: AMORPHOUS SEDIMENT; Value: SMALL; Range: NEGATIVE; Abnormal: Above high normal; Status: F Lab Order: Urine Culture; SPEC'M 06/26/16 11:59 Test: URINE CULTURE; Value: URINE CULTURE RESULT SPECIMEN APPEARS CONTAMINATED; Status: F Lab Order: Fingerstick Blood Sugar; SPEC'M 06/26/16 17:57 Test: BEDSIDE GLUCOSE; Value: 364; Range: 83-110; Abnormal: Above high normal; Units: MG/DL; Status: F Test Note: ; Dr Order not to Draw Doctor Notified Radiology Order: Abdomen, Flat\E\Upright,PA Chest Test: Abdomen, Flat\E\Upright,PA Chest REASON FOR EXAMINATION: Abdomen Pain; Abdominal series: Three views.; ; History: Abdominal pain.; ; Findings: AP chest radiograph shows minimal interstitial fibrosis changes in the; bases. No definite infiltrate is seen. Supine and cross-table lateral views of; the abdomen show no evidence of free air. There is a right-sided percutaneous; nephrostomy tube noted and surgical sutures are seen in the upper abdomen. There; is formed stool in the proximal and distal colon including a mildly stool dilated; rectum. There are degenerative facet changes in the lumbar spine.; ; Impression:; ; Constipation pattern with stool dilated rectum. Bibasilar interstitial; fibrosis. Clips and sutures in the upper abdomen. A right nephrostomy tube.; ; ; Signed by; Antonio Brooks MD 06/26/2016 01:37 P; Radiology Order: CT ABD & PELVIS W/O CONTRAST Test: CT ABD & PELVIS W/O CONTRAST REASON FOR EXAMINATION: Abdomen Pain; CT of the abdomen and pelvis 06/26/2016; ; Indication: Pain; ; Comparison: CT abdomen and pelvis 03/20/2016 per formed with IV contrast; ; Findings: A large fluid-filled hiatal hernia of 10 cm maximal transverse; dimension is unchanged. There is moderate gastric distension as well. The; small bowel is without obstruction. Adrenal glands are normal. There is; moderate left hydronephrosis and hydroureter with tapering of the distal left; ureter above ureterovesical junction. There is mural thickening/mass in the; region of the right bladder trigone again noted and not significantly changed.; The patient has a right percutaneous nephrostomy this time. There is no evidence; of right hydronephrosis. The small bowel is without obstruction. Abdominal; aorta is of normal course and caliber. There are no pathologically enlarged; retroperitoneal nodes.; ; Significant bladder distension( measuring 21.6 cm cranial-caudal by 13 cm AP by; 17.8 cm transverse dimension), is contributed to by mild prostatic hypertrophy.; and mass within the right bladder trigone.; ; There is no free air or ascites. Large amount of retained stool is identified; throughout the colon with some sparing of the descending colon; ; Impression; 1. Significant bladder obstruction contributed to by thickening/mass within the; right bladder trigone as well as prostatic hypertrophy with bladder outlet; obstruction. Distended bladder measures 21.6 cm cranial-caudal by 13 cm AP by; 17.8 cm transverse dimension .; ; 2. Moderate left hydronephrosis and hydroureter tapering above the left; ureterovesical junction.; 3. Prior right percutaneous nephrostomy, in place. No right hydronephrosis.; 4. Large amount of colonic constipation with sparing of the the descending; colon.; ; 5. 10 cm hiatal hernia, containing fluid, not significantly changed from prior; study 03/20/16.; ; Case discussed with Dr. Fregoso in Emergency Department 06/26/2016 at 02:08 p.m.; ; ; ; ; Signed by; Nannette Castañeda MD 06/26/2016 08:38 P; Outcome: 18:00 Discharge ordered by Provider. fg 18:12 Discharge Assessment: patient administered narcotics - no. bcj 18:41 The following High Risk Discharge criteria are identified: None. Discharged to home [facility] ambulatory, with family. Condition: stable. Discharge instructions given to patient, Instructed on discharge instructions, follow up and referral plans. medication usage, Prescriptions given X 1. CT Study completed. Property :Personal belongings accompany Pt. 18:44 Patient left the ED. [facility] Signatures: Dispatcher [employer] EDYuly Diez, RN RN [facility] Mary Pettit, Water Pipe Installer Unit deg Neo Whitley RN RN [facility] Alcira Lawson, RN RN [facility] Saeed, Michelle, Reg Reg gb Ganter, LoriLee, Reg Reg lg العلي, Kerri, FILTER WASHER AND PRESSER FILTER WASHER AND PRESSER ct3 Kristi Fregoso MD MD Betzy North RN mk4 Chart Complete EDDIE
== END 2016-06-26 18:44 | disposition home or self-care (01) ==
LOC: M ED 10:42
DX: R11.10 Vomiting, unspecified (principal); R10.9 Unspecified abdominal pain; E87.1 Hypo-osmolality and hyponatremia; K59.00 Constipation, unspecified; E11.65 Type 2 diabetes mellitus with hyperglycemia; N40.0 Benign prostatic hyperplasia without lower urinary tract symptoms; K44.9 Diaphragmatic hernia without obstruction or gangrene; K21.9 Gastro-esophageal reflux disease without esophagitis; E78.00 Pure hypercholesterolemia, unspecified; F72 Severe intellectual disabilities; I25.2 Old myocardial infarction; I34.1 Nonrheumatic mitral (valve) prolapse; Z79.899 Other long term (current) drug therapy; Z79.2 Long term (current) use of antibiotics
CPT/HCPCS: 36415; 74022; 74176; 80048; 80076; 81001; 82550; 82553; 83690; 84484; 85025; 87086; 96361; 96374; 96375; 99284; J2405

== ENCOUNTER 2016-07-03 16:08 | Emergency (ER) | payer MEDICARE, MEDICAID ==
--- NOTE | 2016-07-03 18:17 | EDDOCDS ---
Nurse's Notes [facility] Name: Teddy Recio Age: 81 yrs Sex: Male : 1935 Arrival Date: 07/03/2016 Time: 16:08 Bed TR7 Private MD: Sterling Marcelino A. Diagnosis: Encounter for fitting and adjustment of non-vascular catheter-temporary obstruction of duran cath- RESOLVED Presentation: 07/03 16:16 Presenting complaint: strategy intern states that at day care they did not drain any fluid hs1 from leg bag. Patient denies pain. Adult Sepsis Screening: The patient does not have new or worsening altered mentation. Patient's respiratory rate is less than 22. Systolic blood pressure is greater than 100. Patient has a qSOFA score of 0- Negative Sepsis Screen. Suicide/Homicide risk assessment- the patient denies having any suicidal and/or homicidal ideations and does not present with any other emotional, behavioral or mental health complaints. Status: Patient is not a enrollment services dean or dependent. Transition of care: patient was not received from another setting of care. 16:16 Acuity: MAGEN Level 3 hs1 16:16 Method Of Arrival: Walkin/Carried/Asstd hs1 Triage Assessment: 16:20 General: Appears in no apparent distress, Behavior is appropriate for age, cooperative. hs1 Pain: Denies pain. Respiratory: No deficits noted. : No deficits noted. Historical: - Allergies: No known drug Allergies; - Home Meds: 1. Paxil 20 mg Oral tab 1 tab nightly 2. Paxil 40 mg Oral tab 1 tab nightly 3. Colace 100 mg oral cap 1 cap 2 times per day 4. omeprazole 20 mg Oral cpDR 1 cap once daily 5. pravastatin 40 mg oral tab 1 tab nightly 6. Os-Ronald 500 + D3 500 mg(1,250mg) -200 unit oral tab 1 tab twice a day 7. Seroquel 200 mg Oral tab 1 tab once daily at 1630 8. Miralax 17 gram Oral pwpk 1 packet once daily 9. Dulcolax (bisacodyl) 10 mg Rectal supp 1 suppository once daily on day 4 without BM 10. Milk of Magnesia 400 mg/5 mL Oral susp 15 mL PRN 11. Debrox 6.5 % Otic drop 1 drop each ear \T\HS every Sunday and Sunday 12. chlorhexidine gluconate 0.12 % MM mwsh 15 mL 2 times per day 13. glimepiride 2 mg Oral tab 1 tab once daily 14. senna 8.6 mg oral tab 1 tabs twice a day 15. DuoNeb 0.5 mg-3 mg(2.5 mg base)/3 mL Inhl nebu 3 mL 4 times per day - PMHx: BPH; Diabetes - NIDDM: controlled; GERD; Hiatal Hernia; Hypercholesterolemia; Hypertension; [place]; MVP; Severe MR; - PSHx: TURP; - Social history: Smoking status: Patient states was never smoker of tobacco. No barriers to communication noted. - Family history: Not pertinent. - : The pt / caregiver states he / she is not on anticoagulants. Home medication list is obtained from the caregiver. - Exposure Risk Screening:: None identified. Screenin:10 Screening information is obtained from the patient. Fall risk: No risks identified. ml6 Assistance ADL's: requires no assistance with activities of daily living. Abuse/DV Screen: The patient / caregiver reports he/she is: not in a situation that causes fear, pain or injury. Nutritional screening: No deficits noted. Advance Directives: Currently, there is no health care proxy. home support is adequate. Assessment: 18:08 General: Appears in no apparent distress, comfortable. General: duran catheter flushed ml6 with no resistance and good return. Pain: Denies pain. Neurological: No deficits noted. Cardiovascular: No deficits noted. Capillary refill < 3 seconds is brisk in bilateral fingers toes. Respiratory: Airway is patent Respiratory effort is even, unlabored, Respiratory pattern is regular, symmetrical, Breath sounds are clear bilaterally. GI: No deficits noted. Abdomen is flat, non- distended Bowel sounds present X 4 quads. Abd is soft and non tender X 4 quads. Vital Signs: 16:10 BP 148 / 82; Pulse 75; Resp 18 S; Temp 97.4(O); Pulse Ox 99% on R/A; Weight 65.77 kg dd6 (R); 18:16 BP 144 / 78; Pulse 74; Resp 18; Temp 97.8(O); Pulse Ox 98% on R/A; Pain 0/10; ml6 Vitals: 16:10 Log In Time: July 03, 2016 at 16:08. dd6 ED Course: 16:10 Patient visited by Clifford Early PCA. dd6 16:10 Sterling Marcelino is Private Physician. dd6 16:10 Patient moved to Waiting dd6 16:11 Patient moved to Pre RCE dd6 16:17 Triage Initiated hs1 17:34 Patient moved to Triage 2 ar3 17:59 Venu Andrade PA is PHCP. mo1 17:59 Christiane Thomas MD is Attending Physician. mo1 18:04 Patient visited by Venu Andrade PA. mo1 18:08 Urine Culture Sent. ml6 18:10 Sterling Marcelino is Referral Physician. mo1 18:10 The patient / caregiver is instructed regarding the plan of care and ED course. ml6 18:10 No IV's were initiated during this patient's visit. No procedures done that require ml6 assistance. 18:14 Patient moved to TR7 ar3 Order Results: There are currently no results for this order. Outcome: 18:10 Discharge ordered by Provider. mo1 18:10 Discharge Assessment: patient administered narcotics - no. The following High Risk ml6 Discharge criteria are identified: None. Discharged to home ambulatory. Condition: stable. Discharge instructions given to patient, Instructed on discharge instructions, follow up and referral plans. medication usage, Demonstrated understanding of instructions, medications, Pt was receptive of discharge instructions/ teaching. No special radiology studies were completed. Property :Personal belongings accompany Pt. 18:16 Patient left the ED. ml6 Signatures: Clifford Early PCA COMMERCIAL FINANCE ANALYST dd6 Brad Love, HUGO RN ml6 Patsy Dominguez PCA COMMERCIAL FINANCE ANALYST ar3 Jacinda Desai RN RN hs1 Venu Andrade PA PA mo1 MTDD
--- NOTE | 2016-07-03 18:17 | EDDOCDS ---
Physician Documentation [facility] Name: Teddy Recio Age: 81 yrs Sex: Male : 1935 Arrival Date: 07/03/2016 Time: 16:08 Bed TR7 Private MD: Sterling Marcelino A. Disposition: 07/03/16 18:10 Discharged to Home/Self Care. Impression: Encounter for fitting and adjustment of non-vascular catheter - temporary obstruction of duran cath- RESOLVED. - Condition is Stable. - Discharge Instructions: Duran Catheter Care, Adult, Percutaneous Nephrolithotomy. - Medication Reconciliation, Local Pharmacy Hours form. - Follow up: Sterling Marcelino; When: Call to arrange an appointment; Reason: Recheck today's complaints, Continuance of care. - Problem is new. - Symptoms have improved. Historical: - Allergies: No known drug Allergies; - Home Meds: 1. Paxil 20 mg Oral tab 1 tab nightly 2. Paxil 40 mg Oral tab 1 tab nightly 3. Colace 100 mg oral cap 1 cap 2 times per day 4. omeprazole 20 mg Oral cpDR 1 cap once daily 5. pravastatin 40 mg oral tab 1 tab nightly 6. Os-Ronald 500 + D3 500 mg(1,250mg) -200 unit oral tab 1 tab twice a day 7. Seroquel 200 mg Oral tab 1 tab once daily at 1630 8. Miralax 17 gram Oral pwpk 1 packet once daily 9. Dulcolax (bisacodyl) 10 mg Rectal supp 1 suppository once daily on day 4 without BM 10. Milk of Magnesia 400 mg/5 mL Oral susp 15 mL PRN 11. Debrox 6.5 % Otic drop 1 drop each ear \T\HS every Sunday and Sunday 12. chlorhexidine gluconate 0.12 % MM mwsh 15 mL 2 times per day 13. glimepiride 2 mg Oral tab 1 tab once daily 14. senna 8.6 mg oral tab 1 tabs twice a day 15. DuoNeb 0.5 mg-3 mg(2.5 mg base)/3 mL Inhl nebu 3 mL 4 times per day - PMHx: BPH; Diabetes - NIDDM: controlled; GERD; Hiatal Hernia; Hypercholesterolemia; Hypertension; [place]; MVP; Severe MR; - PSHx: TURP; - Social history: Smoking status: Patient states was never smoker of tobacco. No barriers to communication noted. - Family history: Not pertinent. - : The pt / caregiver states he / she is not on anticoagulants. Home medication list is obtained from the caregiver. - Exposure Risk Screening:: None identified. Vital Signs: 07/03 16:10 BP 148 / 82; Pulse 75; Resp 18 S; Temp 97.4(O); Pulse Ox 99% on R/A; Weight 65.77 kg / dd6 145 lbs (R); 18:16 BP 144 / 78; Pulse 74; Resp 18; Temp 97.8(O); Pulse Ox 98% on R/A; Pain 0/10; ml6 MDM: 18:04 Misc. Nursing Order ordered. mo1 18:06 Urine Culture Ordered. EDMS Signatures: Dispatcher [employer] EDMS Brad Love RN RN ml6 Jacinda Desai RN RN hs1 Venu Andrade PA PA mo1 MTDD
--- NOTE | 2016-07-05 19:17 | EDDOCDS ---
Physician Documentation [facility] Name: Teddy Recio Age: 81 yrs Sex: Male : 1935 Arrival Date: 07/03/2016 Time: 16:08 Bed TR7 Private MD: Sterling Marcelino A. Disposition: 07/03/16 18:10 Discharged to Home/Self Care. Impression: Encounter for fitting and adjustment of non-vascular catheter - temporary obstruction of duran cath- RESOLVED. - Condition is Stable. - Discharge Instructions: Duran Catheter Care, Adult, Percutaneous Nephrolithotomy. - Medication Reconciliation, Local Pharmacy Hours form. - Follow up: Streling Marcelino; When: Call to arrange an appointment; Reason: Recheck today's complaints, Continuance of care. - Problem is new. - Symptoms have improved. Historical: - Allergies: No known drug Allergies; - Home Meds: 1. Paxil 20 mg Oral tab 1 tab nightly 2. Paxil 40 mg Oral tab 1 tab nightly 3. Colace 100 mg oral cap 1 cap 2 times per day 4. omeprazole 20 mg Oral cpDR 1 cap once daily 5. pravastatin 40 mg oral tab 1 tab nightly 6. Os-Ronald 500 + D3 500 mg(1,250mg) -200 unit oral tab 1 tab twice a day 7. Seroquel 200 mg Oral tab 1 tab once daily at 1630 8. Miralax 17 gram Oral pwpk 1 packet once daily 9. Dulcolax (bisacodyl) 10 mg Rectal supp 1 suppository once daily on day 4 without BM 10. Milk of Magnesia 400 mg/5 mL Oral susp 15 mL PRN 11. Debrox 6.5 % Otic drop 1 drop each ear \T\HS every Sunday and Sunday 12. chlorhexidine gluconate 0.12 % MM mwsh 15 mL 2 times per day 13. glimepiride 2 mg Oral tab 1 tab once daily 14. senna 8.6 mg oral tab 1 tabs twice a day 15. DuoNeb 0.5 mg-3 mg(2.5 mg base)/3 mL Inhl nebu 3 mL 4 times per day - PMHx: BPH; Diabetes - NIDDM: controlled; GERD; Hiatal Hernia; Hypercholesterolemia; Hypertension; [place]; MVP; Severe MR; - PSHx: TURP; - Social history: Smoking status: Patient states was never smoker of tobacco. No barriers to communication noted. - Family history: Not pertinent. - : The pt / caregiver states he / she is not on anticoagulants. Home medication list is obtained from the caregiver. - Exposure Risk Screening:: None identified. Vital Signs: 07/03 16:10 BP 148 / 82; Pulse 75; Resp 18 S; Temp 97.4(O); Pulse Ox 99% on R/A; Weight 65.77 kg / dd6 145 lbs (R); 18:16 BP 144 / 78; Pulse 74; Resp 18; Temp 97.8(O); Pulse Ox 98% on R/A; Pain 0/10; ml6 MDM: 18:04 Misc. Nursing Order ordered. mo1 18:06 Urine Culture Ordered. [facility] Payment Agreement was scanned into [employer] and attached to record. [facility] 18:32 Financial registration complete. gjb 07/04 12:53 T-Sheet-- Draft Copy was scanned into [employer] and attached to record. gb Signatures: Dispatcher [employer] EDNH Michelle Tipton, Reg Reg gb Brad Love, RN RN ml6 Jacinda Desai RN RN hs1 Venu Andrade PA PA mo1 Deepthi Waldron The chart was reviewed and I authenticate all verbal orders and agree with the evaluation and treatment provided.Attachments: 07/03 18:32 [facility] Payment Agreement gjb 07/04 12:53 T-Sheet-- Draft Copy gb Chart Complete MTDD
--- NOTE | 2016-07-05 19:17 | EDDOCDS ---
Nurse's Notes [facility] Name: Teddy Recio Age: 81 yrs Sex: Male : 1935 Arrival Date: 07/03/2016 Time: 16:08 Bed TR7 Private MD: Sterling Marcelino A. Diagnosis: Encounter for fitting and adjustment of non-vascular catheter-temporary obstruction of duran cath- RESOLVED Presentation: 07/03 16:16 Presenting complaint: [facility] states that at day care they did not drain any fluid hs1 from leg bag. Patient denies pain. Adult Sepsis Screening: The patient does not have new or worsening altered mentation. Patient's respiratory rate is less than 22. Systolic blood pressure is greater than 100. Patient has a qSOFA score of 0- Negative Sepsis Screen. Suicide/Homicide risk assessment- the patient denies having any suicidal and/or homicidal ideations and does not present with any other emotional, behavioral or mental health complaints. Status: Patient is not a tire servicer or dependent. Transition of care: patient was not received from another setting of care. 16:16 Acuity: MAGEN Level 3 hs1 16:16 Method Of Arrival: Walkin/Carried/Asstd hs1 Triage Assessment: 16:20 General: Appears in no apparent distress, Behavior is appropriate for age, cooperative. hs1 Pain: Denies pain. Respiratory: No deficits noted. : No deficits noted. Historical: - Allergies: No known drug Allergies; - Home Meds: 1. Paxil 20 mg Oral tab 1 tab nightly 2. Paxil 40 mg Oral tab 1 tab nightly 3. Colace 100 mg oral cap 1 cap 2 times per day 4. omeprazole 20 mg Oral cpDR 1 cap once daily 5. pravastatin 40 mg oral tab 1 tab nightly 6. Os-Ronald 500 + D3 500 mg(1,250mg) -200 unit oral tab 1 tab twice a day 7. Seroquel 200 mg Oral tab 1 tab once daily at 1630 8. Miralax 17 gram Oral pwpk 1 packet once daily 9. Dulcolax (bisacodyl) 10 mg Rectal supp 1 suppository once daily on day 4 without BM 10. Milk of Magnesia 400 mg/5 mL Oral susp 15 mL PRN 11. Debrox 6.5 % Otic drop 1 drop each ear \T\HS every Sunday and Sunday 12. chlorhexidine gluconate 0.12 % MM mwsh 15 mL 2 times per day 13. glimepiride 2 mg Oral tab 1 tab once daily 14. senna 8.6 mg oral tab 1 tabs twice a day 15. DuoNeb 0.5 mg-3 mg(2.5 mg base)/3 mL Inhl nebu 3 mL 4 times per day - PMHx: BPH; Diabetes - NIDDM: controlled; GERD; Hiatal Hernia; Hypercholesterolemia; Hypertension; [place]; MVP; Severe MR; - PSHx: TURP; - Social history: Smoking status: Patient states was never smoker of tobacco. No barriers to communication noted. - Family history: Not pertinent. - : The pt / caregiver states he / she is not on anticoagulants. Home medication list is obtained from the caregiver. - Exposure Risk Screening:: None identified. Screenin:10 Screening information is obtained from the patient. Fall risk: No risks identified. ml6 Assistance ADL's: requires no assistance with activities of daily living. Abuse/DV Screen: The patient / caregiver reports he/she is: not in a situation that causes fear, pain or injury. Nutritional screening: No deficits noted. Advance Directives: Currently, there is no health care proxy. home support is adequate. Assessment: 18:08 General: Appears in no apparent distress, comfortable. General: duran catheter flushed ml6 with no resistance and good return. Pain: Denies pain. Neurological: No deficits noted. Cardiovascular: No deficits noted. Capillary refill < 3 seconds is brisk in bilateral fingers toes. Respiratory: Airway is patent Respiratory effort is even, unlabored, Respiratory pattern is regular, symmetrical, Breath sounds are clear bilaterally. GI: No deficits noted. Abdomen is flat, non- distended Bowel sounds present X 4 quads. Abd is soft and non tender X 4 quads. Vital Signs: 16:10 BP 148 / 82; Pulse 75; Resp 18 S; Temp 97.4(O); Pulse Ox 99% on R/A; Weight 65.77 kg dd6 (R); 18:16 BP 144 / 78; Pulse 74; Resp 18; Temp 97.8(O); Pulse Ox 98% on R/A; Pain 0/10; ml6 Vitals: 16:10 Log In Time: July 03, 2016 at 16:08. dd6 ED Course: 16:10 Patient visited by Clifford Early PCA. dd6 16:10 Sterling Marcelino is Private Physician. dd6 16:10 Patient moved to Waiting dd6 16:11 Patient moved to Pre RCE dd6 16:17 Triage Initiated hs1 17:34 Patient moved to Triage 2 ar3 17:59 Venu Andrade PA is PHCP. mo1 17:59 Christiane Thomas MD is Attending Physician. mo1 18:04 Patient visited by Venu Andrade PA. mo1 18:08 Urine Culture Sent. ml6 18:10 Sterling Marcelino is Referral Physician. mo1 18:10 The patient / caregiver is instructed regarding the plan of care and ED course. ml6 18:10 No IV's were initiated during this patient's visit. No procedures done that require ml6 assistance. 18:14 Patient moved to TR7 ar3 18:32 [facility] Payment Agreement was scanned into [employer] and attached to record. b 07/04 12:53 T-Sheet-- Draft Copy was scanned into [employer] and attached to record. gb Order Results: Lab Order: Urine Culture; SPEC'M 07/03/16 18:08 Test: URINE CULTURE; Value: <EXTERNAL COMMENT eCWMed> FULL REPORT IN LAB NOTES (eCW and Medent).; Status: F Test: URINE CULTURE; Value: ORGANISM 1: ENTEROCOCCUS FAECALIS; Status: F Test: URINE CULTURE; Value: ENTEROCOCCUS FAECALIS; Status: F Test: URINE CULTURE; Value: COLONY COUNT CFU/ml 100,000; Status: F Test: URINE CULTURE; Value: GRAM POS SENSI - VITEK 67; Status: F Test: URINE CULTURE; Value: Method: VIT2; Status: F Test: URINE CULTURE; Value: TETRACYCLINE <=1 S; Status: F Test: URINE CULTURE; Value: PENICILLIN G 2 S; Status: F Test: URINE CULTURE; Value: AMPICILLIN <=2 S; Status: F Test: URINE CULTURE; Value: ERYTHROMYCIN >=8 R; Status: F Test: URINE CULTURE; Value: GENTAMICIN 500 S; Status: F Test: URINE CULTURE; Value: NITROFURANTOIN <=16 S; Status: F Test: URINE CULTURE; Value: LEVOFLOXACIN >=8 R; Status: F Test: URINE CULTURE; Value: CIPROFLOXACIN >=8 R; Status: F Test: URINE CULTURE; Value: VANCOMYCIN 1 S; Status: F Outcome: 07/03 18:10 Discharge ordered by Provider. mo1 18:10 Discharge Assessment: patient administered narcotics - no. The following High Risk ml6 Discharge criteria are identified: None. Discharged to home ambulatory. Condition: stable. Discharge instructions given to patient, Instructed on discharge instructions, follow up and referral plans. medication usage, Demonstrated understanding of instructions, medications, Pt was receptive of discharge instructions/ teaching. No special radiology studies were completed. Property :Personal belongings accompany Pt. 18:16 Patient left the ED. ml6 Signatures: Michelle Tipton, Reg Reg gb Clifford Early, UC ARCHITECT UC ARCHITECT dd6 Brad Love RN RN ml6 Patsy Dominguez, UC ARCHITECT UC ARCHITECT ar3 Jacinda Desai RN RN hs1 Venu Andrade PA PA mo1 Deepthi Waldron Chart Complete EDDIE
--- NOTE | 2016-07-05 19:17 | EDDOCDS ---
Physician Documentation [facility] Name: Teddy Recio Age: 81 yrs Sex: Male : 1935 Arrival Date: 07/03/2016 Time: 16:08 Bed TR7 Private MD: Sterling Marcelino A. Disposition: 07/03/16 18:10 Discharged to Home/Self Care. Impression: Encounter for fitting and adjustment of non-vascular catheter - temporary obstruction of duran cath- RESOLVED. - Condition is Stable. - Discharge Instructions: Duran Catheter Care, Adult, Percutaneous Nephrolithotomy. - Medication Reconciliation, Local Pharmacy Hours form. - Follow up: Sterling Marcelino; When: Call to arrange an appointment; Reason: Recheck today's complaints, Continuance of care. - Problem is new. - Symptoms have improved. Historical: - Allergies: No known drug Allergies; - Home Meds: 1. Paxil 20 mg Oral tab 1 tab nightly 2. Paxil 40 mg Oral tab 1 tab nightly 3. Colace 100 mg oral cap 1 cap 2 times per day 4. omeprazole 20 mg Oral cpDR 1 cap once daily 5. pravastatin 40 mg oral tab 1 tab nightly 6. Os-Ronald 500 + D3 500 mg(1,250mg) -200 unit oral tab 1 tab twice a day 7. Seroquel 200 mg Oral tab 1 tab once daily at 1630 8. Miralax 17 gram Oral pwpk 1 packet once daily 9. Dulcolax (bisacodyl) 10 mg Rectal supp 1 suppository once daily on day 4 without BM 10. Milk of Magnesia 400 mg/5 mL Oral susp 15 mL PRN 11. Debrox 6.5 % Otic drop 1 drop each ear \T\HS every Sunday and Sunday 12. chlorhexidine gluconate 0.12 % MM mwsh 15 mL 2 times per day 13. glimepiride 2 mg Oral tab 1 tab once daily 14. senna 8.6 mg oral tab 1 tabs twice a day 15. DuoNeb 0.5 mg-3 mg(2.5 mg base)/3 mL Inhl nebu 3 mL 4 times per day - PMHx: BPH; Diabetes - NIDDM: controlled; GERD; Hiatal Hernia; Hypercholesterolemia; Hypertension; [place]; MVP; Severe MR; - PSHx: TURP; - Social history: Smoking status: Patient states was never smoker of tobacco. No barriers to communication noted. - Family history: Not pertinent. - : The pt / caregiver states he / she is not on anticoagulants. Home medication list is obtained from the caregiver. - Exposure Risk Screening:: None identified. Vital Signs: 07/03 16:10 BP 148 / 82; Pulse 75; Resp 18 S; Temp 97.4(O); Pulse Ox 99% on R/A; Weight 65.77 kg / dd6 145 lbs (R); 18:16 BP 144 / 78; Pulse 74; Resp 18; Temp 97.8(O); Pulse Ox 98% on R/A; Pain 0/10; ml6 MDM: 18:04 Misc. Nursing Order ordered. mo1 18:06 Urine Culture Ordered. [facility] [place] [facility] Payment Agreement was scanned into [employer] and attached to record. [facility] 18:32 Financial registration complete. gjb 07/04 12:53 T-Sheet-- Draft Copy was scanned into [employer] and attached to record. gb Signatures: Dispatcher MedHost EDWY Michelle Tipton, Reg Reg gb Brad Love, RN RN ml6 Jacinda Desai RN RN hs1 Venu Andrade PA PA mo1 Deepthi Waldron The chart was reviewed and I authenticate all verbal orders and agree with the evaluation and treatment provided.Attachments: 07/03 18:32 [facility] Payment Agreement gjb 07/04 12:53 T-Sheet-- Draft Copy gb Chart Complete MTDD
--- NOTE | 2016-07-06 17:34 | EDDOCDS ---
Physician Documentation [facility] Name: Teddy Recio Age: 81 yrs Sex: Male : 1935 Arrival Date: 07/03/2016 Time: 16:08 Bed TR7 Private MD: Sterling Marcelino A. Disposition: 07/03/16 18:10 Discharged to Home/Self Care. Impression: Encounter for fitting and adjustment of non-vascular catheter - temporary obstruction of duran cath- RESOLVED. - Condition is Stable. - Discharge Instructions: Duran Catheter Care, Adult, Percutaneous Nephrolithotomy. - Medication Reconciliation, Local Pharmacy Hours form. - Follow up: Sterling Marcelino; When: Call to arrange an appointment; Reason: Recheck today's complaints, Continuance of care. - Problem is new. - Symptoms have improved. Historical: - Allergies: No known drug Allergies; - Home Meds: 1. Paxil 20 mg Oral tab 1 tab nightly 2. Paxil 40 mg Oral tab 1 tab nightly 3. Colace 100 mg oral cap 1 cap 2 times per day 4. omeprazole 20 mg Oral cpDR 1 cap once daily 5. pravastatin 40 mg oral tab 1 tab nightly 6. Os-Ronald 500 + D3 500 mg(1,250mg) -200 unit oral tab 1 tab twice a day 7. Seroquel 200 mg Oral tab 1 tab once daily at 1630 8. Miralax 17 gram Oral pwpk 1 packet once daily 9. Dulcolax (bisacodyl) 10 mg Rectal supp 1 suppository once daily on day 4 without BM 10. Milk of Magnesia 400 mg/5 mL Oral susp 15 mL PRN 11. Debrox 6.5 % Otic drop 1 drop each ear \T\HS every Sunday and Sunday 12. chlorhexidine gluconate 0.12 % MM mwsh 15 mL 2 times per day 13. glimepiride 2 mg Oral tab 1 tab once daily 14. senna 8.6 mg oral tab 1 tabs twice a day 15. DuoNeb 0.5 mg-3 mg(2.5 mg base)/3 mL Inhl nebu 3 mL 4 times per day - PMHx: BPH; Diabetes - NIDDM: controlled; GERD; Hiatal Hernia; Hypercholesterolemia; Hypertension; [place]; MVP; Severe MR; - PSHx: TURP; - Social history: Smoking status: Patient states was never smoker of tobacco. No barriers to communication noted. - Family history: Not pertinent. - : The pt / caregiver states he / she is not on anticoagulants. Home medication list is obtained from the caregiver. - Exposure Risk Screening:: None identified. Vital Signs: 07/03 16:10 BP 148 / 82; Pulse 75; Resp 18 S; Temp 97.4(O); Pulse Ox 99% on R/A; Weight 65.77 kg / dd6 145 lbs (R); 18:16 BP 144 / 78; Pulse 74; Resp 18; Temp 97.8(O); Pulse Ox 98% on R/A; Pain 0/10; ml6 MDM: 18:04 Misc. Nursing Order ordered. mo1 18:06 Urine Culture Ordered. [facility] [place] Agreement was scanned into [employer] and attached to record. [facility] 18:32 Financial registration complete. gjb 07/04 12:53 T-Sheet-- Draft Copy was scanned into [employer] and attached to record. gb Signatures: Dispatcher [employer] EDMI Michelle Tipton, Reg Reg gb Brad Love, RN RN ml6 Jacinda Desai RN RN hs1 Venu Andrade PA PA mo1 Deepthi Waldron The chart was reviewed and I authenticate all verbal orders and agree with the evaluation and treatment provided.Attachments: 07/03 18:32 [facility] [place] Agreement gjb 07/04 12:53 T-Sheet-- Draft Copy gb Chart Complete MTDD
--- NOTE | 2016-07-06 17:34 | EDDOCDS ---
Physician Documentation [facility] Name: Teddy Recio Age: 81 yrs Sex: Male : 1935 Arrival Date: 07/03/2016 Time: 16:08 Bed TR7 Private MD: Sterling Marcelino A. Disposition: 07/03/16 18:10 Discharged to Home/Self Care. Impression: Encounter for fitting and adjustment of non-vascular catheter - temporary obstruction of duran cath- RESOLVED. - Condition is Stable. - Discharge Instructions: Duran Catheter Care, Adult, Percutaneous Nephrolithotomy. - Medication Reconciliation, Local Pharmacy Hours form. - Follow up: Sterling Marcelino; When: Call to arrange an appointment; Reason: Recheck today's complaints, Continuance of care. - Problem is new. - Symptoms have improved. Historical: - Allergies: No known drug Allergies; - Home Meds: 1. Paxil 20 mg Oral tab 1 tab nightly 2. Paxil 40 mg Oral tab 1 tab nightly 3. Colace 100 mg oral cap 1 cap 2 times per day 4. omeprazole 20 mg Oral cpDR 1 cap once daily 5. pravastatin 40 mg oral tab 1 tab nightly 6. Os-Ronald 500 + D3 500 mg(1,250mg) -200 unit oral tab 1 tab twice a day 7. Seroquel 200 mg Oral tab 1 tab once daily at 1630 8. Miralax 17 gram Oral pwpk 1 packet once daily 9. Dulcolax (bisacodyl) 10 mg Rectal supp 1 suppository once daily on day 4 without BM 10. Milk of Magnesia 400 mg/5 mL Oral susp 15 mL PRN 11. Debrox 6.5 % Otic drop 1 drop each ear \T\HS every Sunday and Sunday 12. chlorhexidine gluconate 0.12 % MM mwsh 15 mL 2 times per day 13. glimepiride 2 mg Oral tab 1 tab once daily 14. senna 8.6 mg oral tab 1 tabs twice a day 15. DuoNeb 0.5 mg-3 mg(2.5 mg base)/3 mL Inhl nebu 3 mL 4 times per day - PMHx: BPH; Diabetes - NIDDM: controlled; GERD; Hiatal Hernia; Hypercholesterolemia; Hypertension; [place]; MVP; Severe MR; - PSHx: TURP; - Social history: Smoking status: Patient states was never smoker of tobacco. No barriers to communication noted. - Family history: Not pertinent. - : The pt / caregiver states he / she is not on anticoagulants. Home medication list is obtained from the caregiver. - Exposure Risk Screening:: None identified. Vital Signs: 07/03 16:10 BP 148 / 82; Pulse 75; Resp 18 S; Temp 97.4(O); Pulse Ox 99% on R/A; Weight 65.77 kg / dd6 145 lbs (R); 18:16 BP 144 / 78; Pulse 74; Resp 18; Temp 97.8(O); Pulse Ox 98% on R/A; Pain 0/10; ml6 MDM: 18:04 Misc. Nursing Order ordered. mo1 18:06 Urine Culture Ordered. [facility] [place] [place] Payment Agreement was scanned into [employer] and attached to record. [facility] 18:32 Financial registration complete. b 07/04 12:53 T-Sheet-- Draft Copy was scanned into [employer] and attached to record. gb Signatures: Dispatcher [employer]Host [facility] Michelle Tipton, Reg Reg gb Brad Love, RN RN ml6 Jacinda Desai RN RN hs1 Venu Andrade PA PA mo1 Deepthi Waldron The chart was reviewed and I authenticate all verbal orders and agree with the evaluation and treatment provided.Attachments: 07/03 18:32 [facility] [place] Payment Agreement gjb 07/04 12:53 T-Sheet-- Draft Copy gb MTDD
--- NOTE | 2016-07-06 17:34 | EDDOCDS ---
Nurse's Notes [facility] Name: Teddy Recio Age: 81 yrs Sex: Male : 1935 Arrival Date: 07/03/2016 Time: 16:08 Bed TR7 Private MD: Sterling Marcelino A. 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 Patient denies pain. Adult Sepsis Screening: The patient does not have new or worsening altered mentation. Patient's respiratory rate is less than 22. Systolic blood pressure is greater than 100. Patient has a qSOFA score of 0- Negative Sepsis Screen. Suicide/Homicide risk assessment- the patient denies having any suicidal and/or homicidal ideations and does not present with any other emotional, behavioral or mental health complaints. Status: Patient is not a financial services education consultant or dependent. Transition of care: patient was not received from another setting of care. 16:16 Acuity: MAGEN Level 3 hs1 16:16 Method Of Arrival: Walkin/Carried/Asstd hs1 Triage Assessment: 16:20 General: Appears in no apparent distress, Behavior is appropriate for age, cooperative. hs1 Pain: Denies pain. Respiratory: No deficits noted. : No deficits noted. Historical: - Allergies: No known drug Allergies; - Home Meds: 1. Paxil 20 mg Oral tab 1 tab nightly 2. Paxil 40 mg Oral tab 1 tab nightly 3. Colace 100 mg oral cap 1 cap 2 times per day 4. omeprazole 20 mg Oral cpDR 1 cap once daily 5. pravastatin 40 mg oral tab 1 tab nightly 6. Os-Ronald 500 + D3 500 mg(1,250mg) -200 unit oral tab 1 tab twice a day 7. Seroquel 200 mg Oral tab 1 tab once daily at 1630 8. Miralax 17 gram Oral pwpk 1 packet once daily 9. Dulcolax (bisacodyl) 10 mg Rectal supp 1 suppository once daily on day 4 without BM 10. Milk of Magnesia 400 mg/5 mL Oral susp 15 mL PRN 11. Debrox 6.5 % Otic drop 1 drop each ear \T\HS every Sunday and Sunday 12. chlorhexidine gluconate 0.12 % MM mwsh 15 mL 2 times per day 13. glimepiride 2 mg Oral tab 1 tab once daily 14. senna 8.6 mg oral tab 1 tabs twice a day 15. DuoNeb 0.5 mg-3 mg(2.5 mg base)/3 mL Inhl nebu 3 mL 4 times per day - PMHx: BPH; Diabetes - NIDDM: controlled; GERD; Hiatal Hernia; Hypercholesterolemia; Hypertension; [place]; MVP; Severe MR; - PSHx: TURP; - Social history: Smoking status: Patient states was never smoker of tobacco. No barriers to communication noted. - Family history: Not pertinent. - : The pt / caregiver states he / she is not on anticoagulants. Home medication list is obtained from the caregiver. - Exposure Risk Screening:: None identified. Screenin:10 Screening information is obtained from the patient. Fall risk: No risks identified. ml6 Assistance ADL's: requires no assistance with activities of daily living. Abuse/DV Screen: The patient / caregiver reports he/she is: not in a situation that causes fear, pain or injury. Nutritional screening: No deficits noted. Advance Directives: Currently, there is no health care proxy. home support is adequate. Assessment: 18:08 General: Appears in no apparent distress, comfortable. General: duran catheter flushed ml6 with no resistance and good return. Pain: Denies pain. Neurological: No deficits noted. Cardiovascular: No deficits noted. Capillary refill < 3 seconds is brisk in bilateral fingers toes. Respiratory: Airway is patent Respiratory effort is even, unlabored, Respiratory pattern is regular, symmetrical, Breath sounds are clear bilaterally. GI: No deficits noted. Abdomen is flat, non- distended Bowel sounds present X 4 quads. Abd is soft and non tender X 4 quads. Vital Signs: 16:10 BP 148 / 82; Pulse 75; Resp 18 S; Temp 97.4(O); Pulse Ox 99% on R/A; Weight 65.77 kg dd6 (R); 18:16 BP 144 / 78; Pulse 74; Resp 18; Temp 97.8(O); Pulse Ox 98% on R/A; Pain 0/10; ml6 Vitals: 16:10 Log In Time: July 03, 2016 at 16:08. dd6 ED Course: 16:10 Patient visited by Clifford Early PCA. dd6 16:10 Sterling Marcelino is Private Physician. dd6 16:10 Patient moved to Waiting dd6 16:11 Patient moved to Pre RCE dd6 16:17 Triage Initiated hs1 17:34 Patient moved to Triage 2 ar3 17:59 Venu Andrade PA is PHCP. mo1 17:59 Christiane Thomas MD is Attending Physician. mo1 18:04 Patient visited by Venu Andrade PA. mo1 18:08 Urine Culture Sent. ml6 18:10 Sterling Marcelino is Referral Physician. mo1 18:10 The patient / caregiver is instructed regarding the plan of care and ED course. ml6 18:10 No IV's were initiated during this patient's visit. No procedures done that require ml6 assistance. 18:14 Patient moved to TR7 ar3 18:32 [facility] Payment Agreement was scanned into Self Point and attached to record. b 07/04 12:53 T-Sheet-- Draft Copy was scanned into Self Point and attached to record. gb Order Results: Lab Order: Urine Culture; SPEC'M 07/03/16 18:08 Test: URINE CULTURE; Value: <EXTERNAL COMMENT eCWMed> FULL REPORT IN LAB NOTES (eCW and Medent).; Status: F Test: URINE CULTURE; Value: ORGANISM 1: ENTEROCOCCUS FAECALIS; Status: F Test: URINE CULTURE; Value: ENTEROCOCCUS FAECALIS; Status: F Test: URINE CULTURE; Value: COLONY COUNT CFU/ml 100,000; Status: F Test: URINE CULTURE; Value: GRAM POS SENSI - VITEK 67; Status: F Test: URINE CULTURE; Value: Method: VIT2; Status: F Test: URINE CULTURE; Value: TETRACYCLINE <=1 S; Status: F Test: URINE CULTURE; Value: PENICILLIN G 2 S; Status: F Test: URINE CULTURE; Value: AMPICILLIN <=2 S; Status: F Test: URINE CULTURE; Value: ERYTHROMYCIN >=8 R; Status: F Test: URINE CULTURE; Value: GENTAMICIN 500 S; Status: F Test: URINE CULTURE; Value: NITROFURANTOIN <=16 S; Status: F Test: URINE CULTURE; Value: LEVOFLOXACIN >=8 R; Status: F Test: URINE CULTURE; Value: CIPROFLOXACIN >=8 R; Status: F Test: URINE CULTURE; Value: VANCOMYCIN 1 S; Status: F Outcome: 07/03 18:10 Discharge ordered by Provider. mo1 18:10 Discharge Assessment: patient administered narcotics - no. The following High Risk ml6 Discharge criteria are identified: None. Discharged to home ambulatory. Condition: stable. Discharge instructions given to patient, Instructed on discharge instructions, follow up and referral plans. medication usage, Demonstrated understanding of instructions, medications, Pt was receptive of discharge instructions/ teaching. No special radiology studies were completed. Property :Personal belongings accompany Pt. 18:16 Patient left the ED. ml6 Addendum: 07/06/2016 17:32 Narrative: Urine culture results reviewed by Dr Brooke and results faxed to Dr Marcelino.[facility] Signatures: Demetria Carter RN RN [facility] Michelle Tipton, Reg Reg gb Clifford Early, CAR WRECKER CAR WRECKER dd6 Brad Love RN RN ml6 Patsy Dominguez, CAR WRECKER CAR WRECKER ar3 Jacinda Desai RN RN hs1 Veun Andrade PA PA mo1 Deepthi Waldron MTDD
--- NOTE | 2016-07-06 17:34 | EDDOCDS ---
Physician Documentation [facility] Name: Teddy Recio Age: 81 yrs Sex: Male : 1935 Arrival Date: 07/03/2016 Time: 16:08 Bed TR7 Private MD: Sterling Marcelino A. Disposition: 07/03/16 18:10 Discharged to Home/Self Care. Impression: Encounter for fitting and adjustment of non-vascular catheter - temporary obstruction of duran cath- RESOLVED. - Condition is Stable. - Discharge Instructions: Duran Catheter Care, Adult, Percutaneous Nephrolithotomy. - Medication Reconciliation, Local Pharmacy Hours form. - Follow up: Sterling Marcelino; When: Call to arrange an appointment; Reason: Recheck today's complaints, Continuance of care. - Problem is new. - Symptoms have improved. Historical: - Allergies: No known drug Allergies; - Home Meds: 1. Paxil 20 mg Oral tab 1 tab nightly 2. Paxil 40 mg Oral tab 1 tab nightly 3. Colace 100 mg oral cap 1 cap 2 times per day 4. omeprazole 20 mg Oral cpDR 1 cap once daily 5. pravastatin 40 mg oral tab 1 tab nightly 6. Os-Ronald 500 + D3 500 mg(1,250mg) -200 unit oral tab 1 tab twice a day 7. Seroquel 200 mg Oral tab 1 tab once daily at 1630 8. Miralax 17 gram Oral pwpk 1 packet once daily 9. Dulcolax (bisacodyl) 10 mg Rectal supp 1 suppository once daily on day 4 without BM 10. Milk of Magnesia 400 mg/5 mL Oral susp 15 mL PRN 11. Debrox 6.5 % Otic drop 1 drop each ear \T\HS every Sunday and Sunday 12. chlorhexidine gluconate 0.12 % MM mwsh 15 mL 2 times per day 13. glimepiride 2 mg Oral tab 1 tab once daily 14. senna 8.6 mg oral tab 1 tabs twice a day 15. DuoNeb 0.5 mg-3 mg(2.5 mg base)/3 mL Inhl nebu 3 mL 4 times per day - PMHx: BPH; Diabetes - NIDDM: controlled; GERD; Hiatal Hernia; Hypercholesterolemia; Hypertension; [place]; MVP; Severe MR; - PSHx: TURP; - Social history: Smoking status: Patient states was never smoker of tobacco. No barriers to communication noted. - Family history: Not pertinent. - : The pt / caregiver states he / she is not on anticoagulants. Home medication list is obtained from the caregiver. - Exposure Risk Screening:: None identified. Vital Signs: 07/03 16:10 BP 148 / 82; Pulse 75; Resp 18 S; Temp 97.4(O); Pulse Ox 99% on R/A; Weight 65.77 kg / dd6 145 lbs (R); 18:16 BP 144 / 78; Pulse 74; Resp 18; Temp 97.8(O); Pulse Ox 98% on R/A; Pain 0/10; ml6 MDM: 18:04 Misc. Nursing Order ordered. mo1 18:06 Urine Culture Ordered. [facility] Payment Agreement was scanned into Embedded Chat and attached to record. [facility] 18:32 Financial registration complete. gjb 07/04 12:53 T-Sheet-- Draft Copy was scanned into Embedded Chat and attached to record. gb Signatures: Dispatcher [employer] [facility] Michelle Tipton, Reg Reg gb Brad Love, RN RN ml6 Jacinda Desai RN RN hs1 Venu Andrade PA PA mo1 Deepthi Waldron The chart was reviewed and I authenticate all verbal orders and agree with the evaluation and treatment provided.Attachments: 07/03 18:32 [facility] Payment Agreement gjb 07/04 12:53 T-Sheet-- Draft Copy gb Chart Complete MTDD
--- NOTE | 2016-07-06 17:34 | EDDOCDS ---
Nurse's Notes [facility] Name: Teddy Recio Age: 81 yrs Sex: Male : 1935 Arrival Date: 07/03/2016 Time: 16:08 Bed TR7 Private MD: Sterling Marcelino A. 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 Patient denies pain. Adult Sepsis Screening: The patient does not have new or worsening altered mentation. Patient's respiratory rate is less than 22. Systolic blood pressure is greater than 100. Patient has a qSOFA score of 0- Negative Sepsis Screen. Suicide/Homicide risk assessment- the patient denies having any suicidal and/or homicidal ideations and does not present with any other emotional, behavioral or mental health complaints. Status: Patient is not a service manager or dependent. Transition of care: patient was not received from another setting of care. 16:16 Acuity: MAGEN Level 3 hs1 16:16 Method Of Arrival: Walkin/Carried/Asstd hs1 Triage Assessment: 16:20 General: Appears in no apparent distress, Behavior is appropriate for age, cooperative. hs1 Pain: Denies pain. Respiratory: No deficits noted. : No deficits noted. Historical: - Allergies: No known drug Allergies; - Home Meds: 1. Paxil 20 mg Oral tab 1 tab nightly 2. Paxil 40 mg Oral tab 1 tab nightly 3. Colace 100 mg oral cap 1 cap 2 times per day 4. omeprazole 20 mg Oral cpDR 1 cap once daily 5. pravastatin 40 mg oral tab 1 tab nightly 6. Os-Ronald 500 + D3 500 mg(1,250mg) -200 unit oral tab 1 tab twice a day 7. Seroquel 200 mg Oral tab 1 tab once daily at 1630 8. Miralax 17 gram Oral pwpk 1 packet once daily 9. Dulcolax (bisacodyl) 10 mg Rectal supp 1 suppository once daily on day 4 without BM 10. Milk of Magnesia 400 mg/5 mL Oral susp 15 mL PRN 11. Debrox 6.5 % Otic drop 1 drop each ear \T\HS every Sunday and Sunday 12. chlorhexidine gluconate 0.12 % MM mwsh 15 mL 2 times per day 13. glimepiride 2 mg Oral tab 1 tab once daily 14. senna 8.6 mg oral tab 1 tabs twice a day 15. DuoNeb 0.5 mg-3 mg(2.5 mg base)/3 mL Inhl nebu 3 mL 4 times per day - PMHx: BPH; Diabetes - NIDDM: controlled; GERD; Hiatal Hernia; Hypercholesterolemia; Hypertension; [place]; MVP; Severe MR; - PSHx: TURP; - Social history: Smoking status: Patient states was never smoker of tobacco. No barriers to communication noted. - Family history: Not pertinent. - : The pt / caregiver states he / she is not on anticoagulants. Home medication list is obtained from the caregiver. - Exposure Risk Screening:: None identified. Screenin:10 Screening information is obtained from the patient. Fall risk: No risks identified. ml6 Assistance ADL's: requires no assistance with activities of daily living. Abuse/DV Screen: The patient / caregiver reports he/she is: not in a situation that causes fear, pain or injury. Nutritional screening: No deficits noted. Advance Directives: Currently, there is no health care proxy. home support is adequate. Assessment: 18:08 General: Appears in no apparent distress, comfortable. General: duran catheter flushed ml6 with no resistance and good return. Pain: Denies pain. Neurological: No deficits noted. Cardiovascular: No deficits noted. Capillary refill < 3 seconds is brisk in bilateral fingers toes. Respiratory: Airway is patent Respiratory effort is even, unlabored, Respiratory pattern is regular, symmetrical, Breath sounds are clear bilaterally. GI: No deficits noted. Abdomen is flat, non- distended Bowel sounds present X 4 quads. Abd is soft and non tender X 4 quads. Vital Signs: 16:10 BP 148 / 82; Pulse 75; Resp 18 S; Temp 97.4(O); Pulse Ox 99% on R/A; Weight 65.77 kg dd6 (R); 18:16 BP 144 / 78; Pulse 74; Resp 18; Temp 97.8(O); Pulse Ox 98% on R/A; Pain 0/10; ml6 Vitals: 16:10 Log In Time: July 03, 2016 at 16:08. dd6 ED Course: 16:10 Patient visited by Clifford Early PCA. dd6 16:10 Sterling Marcelino is Private Physician. dd6 16:10 Patient moved to Waiting dd6 16:11 Patient moved to Pre RCE dd6 16:17 Triage Initiated hs1 17:34 Patient moved to Triage 2 ar3 17:59 Venu Andrade PA is PHCP. mo1 17:59 Christiane Thomas MD is Attending Physician. mo1 18:04 Patient visited by Venu Andrade PA. mo1 18:08 Urine Culture Sent. ml6 18:10 Sterling Marcelino is Referral Physician. mo1 18:10 The patient / caregiver is instructed regarding the plan of care and ED course. ml6 18:10 No IV's were initiated during this patient's visit. No procedures done that require ml6 assistance. 18:14 Patient moved to TR7 ar3 18:32 [facility] Payment Agreement was scanned into Eff[employer] and attached to record. b 07/04 12:53 T-Sheet-- Draft Copy was scanned into Effdon and attached to record. gb Order Results: Lab Order: Urine Culture; SPEC'M 07/03/16 18:08 Test: URINE CULTURE; Value: <EXTERNAL COMMENT eCWMed> FULL REPORT IN LAB NOTES (eCW and Medent).; Status: F Test: URINE CULTURE; Value: ORGANISM 1: ENTEROCOCCUS FAECALIS; Status: F Test: URINE CULTURE; Value: ENTEROCOCCUS FAECALIS; Status: F Test: URINE CULTURE; Value: COLONY COUNT CFU/ml 100,000; Status: F Test: URINE CULTURE; Value: GRAM POS SENSI - VITEK 67; Status: F Test: URINE CULTURE; Value: Method: VIT2; Status: F Test: URINE CULTURE; Value: TETRACYCLINE <=1 S; Status: F Test: URINE CULTURE; Value: PENICILLIN G 2 S; Status: F Test: URINE CULTURE; Value: AMPICILLIN <=2 S; Status: F Test: URINE CULTURE; Value: ERYTHROMYCIN >=8 R; Status: F Test: URINE CULTURE; Value: GENTAMICIN 500 S; Status: F Test: URINE CULTURE; Value: NITROFURANTOIN <=16 S; Status: F Test: URINE CULTURE; Value: LEVOFLOXACIN >=8 R; Status: F Test: URINE CULTURE; Value: CIPROFLOXACIN >=8 R; Status: F Test: URINE CULTURE; Value: VANCOMYCIN 1 S; Status: F Outcome: 07/03 18:10 Discharge ordered by Provider. mo1 18:10 Discharge Assessment: patient administered narcotics - no. The following High Risk ml6 Discharge criteria are identified: None. Discharged to home ambulatory. Condition: stable. Discharge instructions given to patient, Instructed on discharge instructions, follow up and referral plans. medication usage, Demonstrated understanding of instructions, medications, Pt was receptive of discharge instructions/ teaching. No special radiology studies were completed. Property :Personal belongings accompany Pt. 18:16 Patient left the ED. ml6 Addendum: 07/06/2016 17:32 Narrative: Urine culture results reviewed by Dr Brooke and results faxed to Dr Marcelino.[facility] Signatures: Demetria Carter RN RN [facility] Michelle Tipton, Reg Reg gb Clifford Early, FACILITIES COORDINATOR FACILITIES COORDINATOR dd6 Brad Love RN RN ml6 Patsy Dominguez, FACILITIES COORDINATOR FACILITIES COORDINATOR ar3 Jacinda Desai RN RN hs1 Venu Andrade PA PA mo1 Deepthi Waldron Chart Complete MTDD
--- NOTE | 2016-07-06 17:34 | EDDOCDS ---
Physician Documentation [facility] Name: Teddy Recio Age: 81 yrs Sex: Male : 1935 Arrival Date: 07/03/2016 Time: 16:08 Bed TR7 Private MD: Sterling Marcelino A. Disposition: 07/03/16 18:10 Discharged to Home/Self Care. Impression: Encounter for fitting and adjustment of non-vascular catheter - temporary obstruction of duran cath- RESOLVED. - Condition is Stable. - Discharge Instructions: Duran Catheter Care, Adult, Percutaneous Nephrolithotomy. - Medication Reconciliation, Local Pharmacy Hours form. - Follow up: Sterling Marcelino; When: Call to arrange an appointment; Reason: Recheck today's complaints, Continuance of care. - Problem is new. - Symptoms have improved. Historical: - Allergies: No known drug Allergies; - Home Meds: 1. Paxil 20 mg Oral tab 1 tab nightly 2. Paxil 40 mg Oral tab 1 tab nightly 3. Colace 100 mg oral cap 1 cap 2 times per day 4. omeprazole 20 mg Oral cpDR 1 cap once daily 5. pravastatin 40 mg oral tab 1 tab nightly 6. Os-Ronald 500 + D3 500 mg(1,250mg) -200 unit oral tab 1 tab twice a day 7. Seroquel 200 mg Oral tab 1 tab once daily at 1630 8. Miralax 17 gram Oral pwpk 1 packet once daily 9. Dulcolax (bisacodyl) 10 mg Rectal supp 1 suppository once daily on day 4 without BM 10. Milk of Magnesia 400 mg/5 mL Oral susp 15 mL PRN 11. Debrox 6.5 % Otic drop 1 drop each ear \T\HS every Sunday and Sunday 12. chlorhexidine gluconate 0.12 % MM mwsh 15 mL 2 times per day 13. glimepiride 2 mg Oral tab 1 tab once daily 14. senna 8.6 mg oral tab 1 tabs twice a day 15. DuoNeb 0.5 mg-3 mg(2.5 mg base)/3 mL Inhl nebu 3 mL 4 times per day - PMHx: BPH; Diabetes - NIDDM: controlled; GERD; Hiatal Hernia; Hypercholesterolemia; Hypertension; [place]; MVP; Severe MR; - PSHx: TURP; - Social history: Smoking status: Patient states was never smoker of tobacco. No barriers to communication noted. - Family history: Not pertinent. - : The pt / caregiver states he / she is not on anticoagulants. Home medication list is obtained from the caregiver. - Exposure Risk Screening:: None identified. Vital Signs: 07/03 16:10 BP 148 / 82; Pulse 75; Resp 18 S; Temp 97.4(O); Pulse Ox 99% on R/A; Weight 65.77 kg / dd6 145 lbs (R); 18:16 BP 144 / 78; Pulse 74; Resp 18; Temp 97.8(O); Pulse Ox 98% on R/A; Pain 0/10; ml6 MDM: 18:04 Misc. Nursing Order ordered. mo1 18:06 Urine Culture Ordered. [facility] Payment Agreement was scanned into Celsense and attached to record. [facility] 18:32 Financial registration complete. b 07/04 12:53 T-Sheet-- Draft Copy was scanned into Celsense and attached to record. gb Signatures: Dispatcher [employer] [facility] Michelle Tipton, Reg Reg gb Brad Love, RN RN ml6 Jacinda Desai RN RN hs1 Venu Andrade PA PA mo1 Deepthi Waldron The chart was reviewed and I authenticate all verbal orders and agree with the evaluation and treatment provided.Attachments: 07/03 18:32 [facility] Payment Agreement gjb 07/04 12:53 T-Sheet-- Draft Copy gb MTDD
--- NOTE | 2016-07-06 17:39 | EDDOCDS ---
Nurse's Notes [facility] Name: Teddy Recio Age: 81 yrs Sex: Male : 1935 Arrival Date: 07/03/2016 Time: 16:08 Bed TR7 Private MD: Sterling Marcelino A. Diagnosis: Encounter for fitting and adjustment of non-vascular catheter-temporary obstruction of duran cath- RESOLVED Presentation: 07/03 16:16 Presenting complaint: communications professor states that at day care they did not drain any fluid hs1 from leg bag. Patient denies pain. Adult Sepsis Screening: The patient does not have new or worsening altered mentation. Patient's respiratory rate is less than 22. Systolic blood pressure is greater than 100. Patient has a qSOFA score of 0- Negative Sepsis Screen. Suicide/Homicide risk assessment- the patient denies having any suicidal and/or homicidal ideations and does not present with any other emotional, behavioral or mental health complaints. Status: Patient is not a dining service inspector or dependent. Transition of care: patient was not received from another setting of care. 16:16 Acuity: MAGEN Level 3 hs1 16:16 Method Of Arrival: Walkin/Carried/Asstd hs1 Triage Assessment: 16:20 General: Appears in no apparent distress, Behavior is appropriate for age, cooperative. hs1 Pain: Denies pain. Respiratory: No deficits noted. : No deficits noted. Historical: - Allergies: No known drug Allergies; - Home Meds: 1. Paxil 20 mg Oral tab 1 tab nightly 2. Paxil 40 mg Oral tab 1 tab nightly 3. Colace 100 mg oral cap 1 cap 2 times per day 4. omeprazole 20 mg Oral cpDR 1 cap once daily 5. pravastatin 40 mg oral tab 1 tab nightly 6. Os-Ronald 500 + D3 500 mg(1,250mg) -200 unit oral tab 1 tab twice a day 7. Seroquel 200 mg Oral tab 1 tab once daily at 1630 8. Miralax 17 gram Oral pwpk 1 packet once daily 9. Dulcolax (bisacodyl) 10 mg Rectal supp 1 suppository once daily on day 4 without BM 10. Milk of Magnesia 400 mg/5 mL Oral susp 15 mL PRN 11. Debrox 6.5 % Otic drop 1 drop each ear \T\HS every Sunday and Sunday 12. chlorhexidine gluconate 0.12 % MM mwsh 15 mL 2 times per day 13. glimepiride 2 mg Oral tab 1 tab once daily 14. senna 8.6 mg oral tab 1 tabs twice a day 15. DuoNeb 0.5 mg-3 mg(2.5 mg base)/3 mL Inhl nebu 3 mL 4 times per day - PMHx: BPH; Diabetes - NIDDM: controlled; GERD; Hiatal Hernia; Hypercholesterolemia; Hypertension; [place]; MVP; Severe MR; - PSHx: TURP; - Social history: Smoking status: Patient states was never smoker of tobacco. No barriers to communication noted. - Family history: Not pertinent. - : The pt / caregiver states he / she is not on anticoagulants. Home medication list is obtained from the caregiver. - Exposure Risk Screening:: None identified. Screenin:10 Screening information is obtained from the patient. Fall risk: No risks identified. ml6 Assistance ADL's: requires no assistance with activities of daily living. Abuse/DV Screen: The patient / caregiver reports he/she is: not in a situation that causes fear, pain or injury. Nutritional screening: No deficits noted. Advance Directives: Currently, there is no health care proxy. home support is adequate. Assessment: 18:08 General: Appears in no apparent distress, comfortable. General: duran catheter flushed ml6 with no resistance and good return. Pain: Denies pain. Neurological: No deficits noted. Cardiovascular: No deficits noted. Capillary refill < 3 seconds is brisk in bilateral fingers toes. Respiratory: Airway is patent Respiratory effort is even, unlabored, Respiratory pattern is regular, symmetrical, Breath sounds are clear bilaterally. GI: No deficits noted. Abdomen is flat, non- distended Bowel sounds present X 4 quads. Abd is soft and non tender X 4 quads. Vital Signs: 16:10 BP 148 / 82; Pulse 75; Resp 18 S; Temp 97.4(O); Pulse Ox 99% on R/A; Weight 65.77 kg dd6 (R); 18:16 BP 144 / 78; Pulse 74; Resp 18; Temp 97.8(O); Pulse Ox 98% on R/A; Pain 0/10; ml6 Vitals: 16:10 Log In Time: July 03, 2016 at 16:08. dd6 ED Course: 16:10 Patient visited by Clifford Early PCA. dd6 16:10 Sterling Marcelino is Private Physician. dd6 16:10 Patient moved to Waiting dd6 16:11 Patient moved to Pre RCE dd6 16:17 Triage Initiated hs1 17:34 Patient moved to Triage 2 ar3 17:59 Venu Andrade PA is PHCP. mo1 17:59 Christiane Thomas MD is Attending Physician. mo1 18:04 Patient visited by Venu Andrade PA. mo1 18:08 Urine Culture Sent. ml6 18:10 Sterling Marcelino is Referral Physician. mo1 18:10 The patient / caregiver is instructed regarding the plan of care and ED course. ml6 18:10 No IV's were initiated during this patient's visit. No procedures done that require ml6 assistance. 18:14 Patient moved to TR7 ar3 18:32 [facility] Payment Agreement was scanned into Nginx and attached to record. b 07/04 12:53 T-Sheet-- Draft Copy was scanned into Nginx and attached to record. gb Order Results: Lab Order: Urine Culture; SPEC'M 07/03/16 18:08 Test: URINE CULTURE; Value: <EXTERNAL COMMENT eCWMed> FULL REPORT IN LAB NOTES (eCW and Medent).; Status: F Test: URINE CULTURE; Value: ORGANISM 1: ENTEROCOCCUS FAECALIS; Status: F Test: URINE CULTURE; Value: ENTEROCOCCUS FAECALIS; Status: F Test: URINE CULTURE; Value: COLONY COUNT CFU/ml 100,000; Status: F Test: URINE CULTURE; Value: GRAM POS SENSI - VITEK 67; Status: F Test: URINE CULTURE; Value: Method: VIT2; Status: F Test: URINE CULTURE; Value: TETRACYCLINE <=1 S; Status: F Test: URINE CULTURE; Value: PENICILLIN G 2 S; Status: F Test: URINE CULTURE; Value: AMPICILLIN <=2 S; Status: F Test: URINE CULTURE; Value: ERYTHROMYCIN >=8 R; Status: F Test: URINE CULTURE; Value: GENTAMICIN 500 S; Status: F Test: URINE CULTURE; Value: NITROFURANTOIN <=16 S; Status: F Test: URINE CULTURE; Value: LEVOFLOXACIN >=8 R; Status: F Test: URINE CULTURE; Value: CIPROFLOXACIN >=8 R; Status: F Test: URINE CULTURE; Value: VANCOMYCIN 1 S; Status: F Outcome: 07/03 18:10 Discharge ordered by Provider. mo1 18:10 Discharge Assessment: patient administered narcotics - no. The following High Risk ml6 Discharge criteria are identified: None. Discharged to home ambulatory. Condition: stable. Discharge instructions given to patient, Instructed on discharge instructions, follow up and referral plans. medication usage, Demonstrated understanding of instructions, medications, Pt was receptive of discharge instructions/ teaching. No special radiology studies were completed. Property :Personal belongings accompany Pt. 18:16 Patient left the ED. ml6 Addendum: 07/06/2016 17:32 Narrative: Urine culture results reviewed by Dr Brooke and results faxed to Dr Marcelino.[facility] Signatures: Demetria Carter RN RN [facility] Michelle Tipton, Reg Reg gb Clifford Early, VIDEO MANAGER VIDEO MANAGER dd6 Brad Love RN RN ml6 Patsy Dominguez, VIDEO MANAGER VIDEO MANAGER ar3 Jacinda Desai RN RN hs1 Venu Andrade PA PA mo1 Deepthi Waldron Chart Complete MTDD
--- NOTE | 2016-07-06 17:39 | EDDOCDS ---
Physician Documentation [facility] Name: Teddy Recio Age: 81 yrs Sex: Male : 1935 Arrival Date: 07/03/2016 Time: 16:08 Bed TR7 Private MD: Sterling Marcelino A. Disposition: 07/03/16 18:10 Discharged to Home/Self Care. Impression: Encounter for fitting and adjustment of non-vascular catheter - temporary obstruction of duran cath- RESOLVED. - Condition is Stable. - Discharge Instructions: Duran Catheter Care, Adult, Percutaneous Nephrolithotomy. - Medication Reconciliation, Local Pharmacy Hours form. - Follow up: Sterling Marcelino; When: Call to arrange an appointment; Reason: Recheck today's complaints, Continuance of care. - Problem is new. - Symptoms have improved. Historical: - Allergies: No known drug Allergies; - Home Meds: 1. Paxil 20 mg Oral tab 1 tab nightly 2. Paxil 40 mg Oral tab 1 tab nightly 3. Colace 100 mg oral cap 1 cap 2 times per day 4. omeprazole 20 mg Oral cpDR 1 cap once daily 5. pravastatin 40 mg oral tab 1 tab nightly 6. Os-Ronald 500 + D3 500 mg(1,250mg) -200 unit oral tab 1 tab twice a day 7. Seroquel 200 mg Oral tab 1 tab once daily at 1630 8. Miralax 17 gram Oral pwpk 1 packet once daily 9. Dulcolax (bisacodyl) 10 mg Rectal supp 1 suppository once daily on day 4 without BM 10. Milk of Magnesia 400 mg/5 mL Oral susp 15 mL PRN 11. Debrox 6.5 % Otic drop 1 drop each ear \T\HS every Sunday and Sunday 12. chlorhexidine gluconate 0.12 % MM mwsh 15 mL 2 times per day 13. glimepiride 2 mg Oral tab 1 tab once daily 14. senna 8.6 mg oral tab 1 tabs twice a day 15. DuoNeb 0.5 mg-3 mg(2.5 mg base)/3 mL Inhl nebu 3 mL 4 times per day - PMHx: BPH; Diabetes - NIDDM: controlled; GERD; Hiatal Hernia; Hypercholesterolemia; Hypertension; [place]; MVP; Severe MR; - PSHx: TURP; - Social history: Smoking status: Patient states was never smoker of tobacco. No barriers to communication noted. - Family history: Not pertinent. - : The pt / caregiver states he / she is not on anticoagulants. Home medication list is obtained from the caregiver. - Exposure Risk Screening:: None identified. Vital Signs: 07/03 16:10 BP 148 / 82; Pulse 75; Resp 18 S; Temp 97.4(O); Pulse Ox 99% on R/A; Weight 65.77 kg / dd6 145 lbs (R); 18:16 BP 144 / 78; Pulse 74; Resp 18; Temp 97.8(O); Pulse Ox 98% on R/A; Pain 0/10; ml6 MDM: 18:04 Misc. Nursing Order ordered. mo1 18:06 Urine Culture Ordered. [facility] : [place] Payment Agreement was scanned into [employer] and attached to record. banner 18:32 Financial registration complete. gjb 07/04 12:53 T-Sheet-- Draft Copy was scanned into [employer] and attached to record. gb Signatures: Dispatcher [employer] EDAZ Michelle Tipton, Reg Reg gb Brad Love, RN RN ml6 Jacinda Desai RN RN hs1 Venu Andrade PA PA mo1 Deepthi Waldron The chart was reviewed and I authenticate all verbal orders and agree with the evaluation and treatment provided.Attachments: 07/03 18:32 [facility] Payment Agreement gjb 07/04 12:53 T-Sheet-- Draft Copy gb Chart Complete MTDD
--- NOTE | 2016-07-06 17:39 | EDDOCDS ---
Physician Documentation [facility] Name: Teddy Recio Age: 81 yrs Sex: Male : 1935 Arrival Date: 07/03/2016 Time: 16:08 Bed TR7 Private MD: Sterling Marcelino A. Disposition: 07/03/16 18:10 Discharged to Home/Self Care. Impression: Encounter for fitting and adjustment of non-vascular catheter - temporary obstruction of duran cath- RESOLVED. - Condition is Stable. - Discharge Instructions: Duran Catheter Care, Adult, Percutaneous Nephrolithotomy. - Medication Reconciliation, Local Pharmacy Hours form. - Follow up: Sterling Marcelino; When: Call to arrange an appointment; Reason: Recheck today's complaints, Continuance of care. - Problem is new. - Symptoms have improved. Historical: - Allergies: No known drug Allergies; - Home Meds: 1. Paxil 20 mg Oral tab 1 tab nightly 2. Paxil 40 mg Oral tab 1 tab nightly 3. Colace 100 mg oral cap 1 cap 2 times per day 4. omeprazole 20 mg Oral cpDR 1 cap once daily 5. pravastatin 40 mg oral tab 1 tab nightly 6. Os-Ronald 500 + D3 500 mg(1,250mg) -200 unit oral tab 1 tab twice a day 7. Seroquel 200 mg Oral tab 1 tab once daily at 1630 8. Miralax 17 gram Oral pwpk 1 packet once daily 9. Dulcolax (bisacodyl) 10 mg Rectal supp 1 suppository once daily on day 4 without BM 10. Milk of Magnesia 400 mg/5 mL Oral susp 15 mL PRN 11. Debrox 6.5 % Otic drop 1 drop each ear \T\HS every Sunday and Sunday 12. chlorhexidine gluconate 0.12 % MM mwsh 15 mL 2 times per day 13. glimepiride 2 mg Oral tab 1 tab once daily 14. senna 8.6 mg oral tab 1 tabs twice a day 15. DuoNeb 0.5 mg-3 mg(2.5 mg base)/3 mL Inhl nebu 3 mL 4 times per day - PMHx: BPH; Diabetes - NIDDM: controlled; GERD; Hiatal Hernia; Hypercholesterolemia; Hypertension; [place]; MVP; Severe MR; - PSHx: TURP; - Social history: Smoking status: Patient states was never smoker of tobacco. No barriers to communication noted. - Family history: Not pertinent. - : The pt / caregiver states he / she is not on anticoagulants. Home medication list is obtained from the caregiver. - Exposure Risk Screening:: None identified. Vital Signs: 07/03 16:10 BP 148 / 82; Pulse 75; Resp 18 S; Temp 97.4(O); Pulse Ox 99% on R/A; Weight 65.77 kg / dd6 145 lbs (R); 18:16 BP 144 / 78; Pulse 74; Resp 18; Temp 97.8(O); Pulse Ox 98% on R/A; Pain 0/10; ml6 MDM: 18:04 Misc. Nursing Order ordered. mo1 18:06 Urine Culture Ordered. [facility] : [place] Payment Agreement was scanned into [employer] and attached to record. [facility] 18:32 Financial registration complete. gjb 07/04 12:53 T-Sheet-- Draft Copy was scanned into [employer] and attached to record. gb Signatures: Dispatcher [employer] EDWY Michelle Tipton, Reg Reg gb Brad Love, RN RN ml6 Jacinda Desai RN RN hs1 Venu Andrade PA PA mo1 Deepthi Waldron The chart was reviewed and I authenticate all verbal orders and agree with the evaluation and treatment provided.Attachments: 07/03 18:32 [facility] Payment Agreement gjb 07/04 12:53 T-Sheet-- Draft Copy gb Chart Complete MTDD
[2016-07-24] MEDS ORDERED: [UNRECOGNIZED DRUG - CODE] PO (11:47)
[2016-07-25] MEDS ORDERED: CIPR500T3 PO (13:57)
[2016-07-25] MEDS ORDERED: TRAM-533 PO (13:57)
== END 2016-07-03 18:16 | disposition home or self-care (01) ==
LOC: M ED 16:08
DX: Z46.6 Encounter for fitting and adjustment of urinary device (principal); N40.1 Benign prostatic hyperplasia with lower urinary tract symptoms; K21.9 Gastro-esophageal reflux disease without esophagitis; E78.00 Pure hypercholesterolemia, unspecified; I10 Essential (primary) hypertension; I25.2 Old myocardial infarction; F72 Severe intellectual disabilities; I34.1 Nonrheumatic mitral (valve) prolapse; K44.9 Diaphragmatic hernia without obstruction or gangrene; Z79.899 Other long term (current) drug therapy

== ENCOUNTER → 2016-07-03 | Outpatient (CLI) | payer MEDICARE, MEDICAID ==
[~2016-07-03] MED LIST changes: +BISA10SU4 PR; +SENN1TAB2 PO
[2016-07-03 10:29] LABS: CALCIUM LEVEL 8.2 MG/DL (8.8-10.2); CREATININE FOR GFR 1.41 MG/DL (0.70-1.30); GLOMERULAR FILTRATION RATE 51.1 (>35); POTASSIUM SERUM 4.7 MEQ/L (3.5-5.1)
== END ==
LOC: M WUC 08:27
PROVIDERS: ATTEND Family Medicine
DX: E87.1 Hypo-osmolality and hyponatremia (principal)

== ENCOUNTER → 2016-07-19 | Outpatient (CLI) | payer MEDICARE, MEDICAID ==
[2016-07-19 09:20] LABS: MEAN CORPUSCULAR HEMOGLOBIN 27.3 pg (27.0-33.0); MEAN CORPUSCULAR HGB CONC 30.8 g/dl (32.0-36.5); MEAN CORPUSCULAR VOLUME 88.8 fl (80.0-96.0); WHITE BLOOD COUNT 3.2 K/mm3 (4.0-10.0)
[2016-07-19 09:37] LABS: INR 1.07
[2016-07-19 09:42] LABS: CALCIUM LEVEL 8.5 MG/DL (8.8-10.2); CREATININE FOR GFR 1.37 MG/DL (0.70-1.30); GLOMERULAR FILTRATION RATE 52.8 (>35); POTASSIUM SERUM 4.3 MEQ/L (3.5-5.1)
== END ==
LOC: M WUC 08:25
PROVIDERS: ATTEND Nurse Practitioner Women's Health
DX: Z01.812 Encounter for preprocedural laboratory examination (principal); N13.1 Hydronephrosis with ureteral stricture, not elsewhere classified; D41.4 Neoplasm of uncertain behavior of bladder; Z79.01 Long term (current) use of anticoagulants

== ENCOUNTER → 2016-07-25 | Day surgery (SDC) | payer MEDICARE, MEDICAID ==
[~2016-07-25] VITALS: Ht 167.6 cm; Wt 63.5 kg
[~2016-07-25] MED LIST changes: +CIPR500T3 PO; +CIPROFLOXACIN 500 MG TAB PO SCH; +CONRAY-60 60% 50ML VIAL (Q9961) As Ordered ONE; +CONRAY-60 60% 50ML VIAL (Q9961) XX ONE; +GLYCOPYRROLATE INJ 0.2 MG/ML 2 ML VIAL As Ordered ONE; +LIDOCAINE 2% INJ 100 MG/5 ML SDV (FOR ANES.) As Ordered ONE; +LR 1,000 ML IV SCH; +METHYLENE BLUE 1% 10 ML VIAL (Q9968) As Ordered ONE; +MIDAZOLAM INJ 2 MG/2 ML VIAL (J2250) As Ordered ONE; +ONDANSETRON 4MG/2ML VIAL (J2405) As Ordered ONE; +PHENYLephrine HCL 500 MCG/5 ML (100MCG/ML) SYRINGE (J2370) As Ordered ONE; +PROPOFOL 200 MG/20 ML VIAL As Ordered ONE; +ROCURONIUM BROMIDE 50 MG/5 ML VIAL As Ordered ONE; +TRAM-533 PO; +[UNRECOGNIZED DRUG - CODE] PO; +ePHEDrine SULFATE 25 MG/5 ML(5MG/ML) SYRINGE As Ordered ONE; +fentaNYL 250 MCG/5 ML INJECTION (J3010) As Ordered ONE; +traMADol 50 MG TAB PO SCH
[2016-07-25 15:30] VITALS: BP 148/74
--- NOTE | 2016-07-25 16:08 | REP ---
C-ARM VIEWS FOR RETROGRADE PYELOGRAM: Multiple C-ARM views are performed. There is injection of contrast into the left ureter in a retrograde fashion. Ureter demonstrates no definite filling defect or stricture. Left pelvicaliceal system is only partially opacified and not optimally evaluated. There appears to be a right nephrostomy. There is injection of contrast through the nephrostomy. There is visualization of a dilated right pelvicaliceal system. 2 minutes and 49 seconds of fluoroscopic time was utilized. Signed by Dmitri Islas MD 07/26/2016 12:10 P
--- NOTE | 2016-07-26 09:49 | RO ---
DATE OF PROCEDURE: 07/25/2016 PREOPERATIVE DIAGNOSIS: Bladder neoplasm plus right hydronephrosis. POSTOPERATIVE DIAGNOSIS: Bladder neoplasm plus right hydronephrosis. SURGERY PERFORMED: Cystoscopy, plus transurethral bladder resection, bipolar TURBT, plus attempted right retrograde pyelogram, plus right antegrade nephrostogram, plus left retrograde pyelogram. SURGEON: Dr. Darryl Lee IT RISK AND ASSURANCE SENIOR MANAGER: None. ANESTHESIA: General. FINDINGS: 5 cm right bladder neoplasm plus right hydronephrosis. COMPLICATIONS: None. ESTIMATED BLOOD LOSS: N/A. HISTORY OF PRESENT ILLNESS: This is an 81-year-old male patient that has a bladder neoplasm and right hydronephrosis and nephrostomy tube. For this reason, he has consented for cystoscopy, TURBT, plus bilateral retrograde pyelograms. PROCEDURE DESCRIPTION: In a patient under general anesthesia in supine modified low lithotomy position after prepping and draping the area of concern, which included the entire genitalia and abdomen, we introduced a cystoscope #21 Stateless in diameter under video endoscopic guidance. The fossa navicularis, penile urethra, bulbar urethra, and prostatic urethra were totally normal. The bladder had a large tumor on the right hemitrigone, sessile, about 5 cm in diameter. The left ureteral orifice was seen. We introduced a 5 Stateless Pollack catheter into the left ureteral orifice and did a retrograde pyelogram. There was no obstruction of the left kidney. The ureter was intact. We then proceeded to fine the right ureter. We could not find it. For this reason, we did an antegrade nephrostogram with methylene blue and contrast. We could see the location of a right renal pelvis and collecting system. We could not see a ureter at all. It was completely blocked. At that moment in time, we actively introduced a resectoscope after taking out the cystoscope and resected the 5 cm sessile mass on the right hemitrigone. We then took out the chips of biopsies of resections with an Social Recruiting evacuator. After emptying all the chips out from the bladder, we fulgurated the bleeding vessels. We then proceeded to take out the cystoscope and to introduce a 20 Stateless Freedman catheter 3-way and placed the balloon to 20 mL. There were no complications. PLAN: The patient will go home today with a nephrostomy tube open and Freedman catheter to drainage. He will have antibiotic and pain medication. He will followup at [facility] [place] to evaluate how he is evolving and also to discuss pathology results.
== END | disposition home or self-care (01) ==
LOC: M SDC 09:45
PROVIDERS: ATTEND Urology
DX: C67.0 Malignant neoplasm of trigone of bladder (principal); N13.30 Unspecified hydronephrosis; R33.9 Retention of urine, unspecified; E11.9 Type 2 diabetes mellitus without complications; K21.9 Gastro-esophageal reflux disease without esophagitis; E78.00 Pure hypercholesterolemia, unspecified; F41.9 Anxiety disorder, unspecified; Z91.040 Latex allergy status; Z79.899 Other long term (current) drug therapy
CPT/HCPCS: 52235; 74420; 88307; J0690; J2250; J2370; J2405; J3010; Q9961; Q9968

== ENCOUNTER 2016-08-02 12:12 | Emergency (ER) | payer MEDICARE, MEDICAID ==
[~2016-08-02 12:12] MED LIST changes: -ISOVUE-370 76% 100ML VIAL (Q9967) As Ordered ONE
--- NOTE | 2016-08-02 13:13 | EDDOCDS ---
Physician Documentation [facility] Name: Teddy Recio Age: 81 yrs Sex: Male : 1935 Arrival Date: 08/02/2016 Time: 12:12 Bed I6 / 28 Private MD: Sterling Marcelino A. Disposition: 08/02/16 12:59 Discharged to Home/Self Care. Impression: Cystostomy malfunction - right NEPHROSTOMY bag leak. - Condition is Stable. - Discharge Instructions: Percutaneous Nephrostomy, Care After. - Medication Reconciliation, Local Pharmacy Hours form. - Follow up: Darryl Lee; When: As needed; Reason: Continuance of care. - Problem is new. - Symptoms are resolved. - Notes: a spare bag has been sent with patient in case future leak occurs. follow up with urology and Dr. Norris as schedule for continued maintanence. Historical: - Allergies: no known allergies; - Home Meds: 1. Paxil 20 mg Oral tab 1 tab nightly 2. Paxil 40 mg Oral tab 1 tab nightly 3. Colace 100 mg oral cap 1 cap 2 times per day 4. omeprazole 20 mg Oral cpDR 1 cap once daily 5. pravastatin 40 mg oral tab 1 tab nightly 6. Os-Ronald 500 + D3 500 mg(1,250mg) -200 unit oral tab 1 tab twice a day 7. Seroquel 200 mg Oral tab 1 tab once daily at 1630 8. Miralax 17 gram Oral pwpk 1 packet once daily 9. Dulcolax (bisacodyl) 10 mg Rectal supp 1 suppository once daily on day 4 without BM 10. Milk of Magnesia 400 mg/5 mL Oral susp 30 mL PRN 11. Debrox 6.5 % Otic drop 1 drop each ear \T\HS every Sunday and Sunday 12. chlorhexidine gluconate 0.12 % MM mwsh 15 mL 2 times per day 13. glimepiride 2 mg Oral tab 1 tab once daily 14. DuoNeb 0.5 mg-3 mg(2.5 mg base)/3 mL Inhl nebu 3 mL 4 times per day and q2h PRN - PMHx: BPH; Diabetes - NIDDM: controlled; GERD; Hiatal Hernia; Hypercholesterolemia; Hypertension; [place]; MVP; Severe MR; - PSHx: TURP; - Social history: Smoking status: Patient states was never smoker of tobacco. No barriers to communication noted, The patient speaks fluent Spanish, Speaks appropriately for age. - Family history: Not pertinent. - : The pt / caregiver states he / she is not on anticoagulants. Home medication list is obtained from the facility MAR. - Exposure Risk Screening:: None identified. Vital Signs: 08/02 12:17 BP 112 / 64; Pulse 68; Resp 18 S; Temp 96.9(T); Pulse Ox 96% on R/A; Weight 68.04 kg / gr2 150 lbs (R); Height 5 ft. 6 in. (167.64 cm) (R); Pain 2/10; 12:17 Body Mass Index 24.21 (68.04 kg, 167.64 cm) gr2 MDM: 12:57 Misc. Nursing Order ordered. ar2 12:59 Financial registration complete. mm15 Signatures: Benson RuffRN Katia Herbert RN RN ck1 Lyle Good PA-C PA-C ar2 Chavo Burroughs mm15 EDDIE
--- NOTE | 2016-08-02 13:13 | EDDOCDS ---
Nurse's Notes [facility] Name: Teddy Recio Age: 81 yrs Sex: Male : 1935 Arrival Date: 08/02/2016 Time: 12:12 Bed I6 / 28 Private MD: Sterling Marcelino A. Diagnosis: Cystostomy malfunction-right NEPHROSTOMY bag leak Presentation: 08/02 12:21 Presenting complaint: Patient states: Needs nephrostomy nag replaced per [facility] staff. ck1 States bag is leaking. Adult Sepsis Screening: The patient does not have new or worsening altered mentation. Patient's respiratory rate is less than 22. Systolic blood pressure is greater than 100. Patient has a qSOFA score of 0- Negative Sepsis Screen. Suicide/Homicide risk assessment- the patient denies having any suicidal and/or homicidal ideations and does not present with any other emotional, behavioral or mental health complaints. Status: Patient is not a customer service leader or dependent. Transition of care: patient was received from [facility]. 12:21 Method Of Arrival: Walkin/Carried/Asstd ck1 12:21 Acuity: MAGEN Level 4 ck1 Triage Assessment: 12:25 General: Appears in no apparent distress, comfortable, Behavior is appropriate for age, ck1 cooperative. Pain: Denies pain. Neurological: Level of Consciousness is awake, alert. Derm: Skin is intact, is healthy with good turgor, Skin is pink, warm & dry. Musculoskeletal: Circulation, motion, and sensation intact Range of motion intact in all extremities. Historical: - Allergies: no known allergies; - Home Meds: 1. Paxil 20 mg Oral tab 1 tab nightly 2. Paxil 40 mg Oral tab 1 tab nightly 3. Colace 100 mg oral cap 1 cap 2 times per day 4. omeprazole 20 mg Oral cpDR 1 cap once daily 5. pravastatin 40 mg oral tab 1 tab nightly 6. Os-Ronald 500 + D3 500 mg(1,250mg) -200 unit oral tab 1 tab twice a day 7. Seroquel 200 mg Oral tab 1 tab once daily at 1630 8. Miralax 17 gram Oral pwpk 1 packet once daily 9. Dulcolax (bisacodyl) 10 mg Rectal supp 1 suppository once daily on day 4 without BM 10. Milk of Magnesia 400 mg/5 mL Oral susp 30 mL PRN 11. Debrox 6.5 % Otic drop 1 drop each ear \T\HS every Sunday and Sunday 12. chlorhexidine gluconate 0.12 % MM mwsh 15 mL 2 times per day 13. glimepiride 2 mg Oral tab 1 tab once daily 14. DuoNeb 0.5 mg-3 mg(2.5 mg base)/3 mL Inhl nebu 3 mL 4 times per day and q2h PRN - PMHx: BPH; Diabetes - NIDDM: controlled; GERD; Hiatal Hernia; Hypercholesterolemia; Hypertension; [place]; MVP; Severe MR; - PSHx: TURP; - Social history: Smoking status: Patient states was never smoker of tobacco. No barriers to communication noted, The patient speaks fluent Dominican, Speaks appropriately for age. - Family history: Not pertinent. - : The pt / caregiver states he / she is not on anticoagulants. Home medication list is obtained from the facility AUG. - Exposure Risk Screening:: None identified. Screenin:20 Infection Control. gr2 13:09 Screening information is obtained from the patient. Fall risk: No risks identified. [facility] Assistance ADL's: requires no assistance with activities of daily living. Abuse/DV Screen: The patient / caregiver reports he/she is: not in a situation that causes fear, pain or injury. Nutritional screening: No deficits noted. Advance Directives: Currently, there is no health care proxy. There is no active DNR order. There is no living will. There is no Power of Pension Administrator. home support is adequate. Assessment: 12:49 General: Appears in no apparent distress, pleasant and upbeat demeanor. [facility]edman with [facility] yellow urine. nephrostomy tube with drainage noted on tubing, drainage bag with leakage noted to bottom of bag. JRC at side. 13:09 General: nephrostomy drainage bag changed with use of adapter as provided by [facility] interventional radiology... Vital Signs: 12:17 BP 112 / 64; Pulse 68; Resp 18 S; Temp 96.9(T); Pulse Ox 96% on R/A; Weight 68.04 kg gr2 (R); Height 5 ft. 6 in. (167.64 cm) (R); Pain 2/10; 12:17 Body Mass Index 24.21 (68.04 kg, 167.64 cm) gr2 Vitals: 12:17 Log In Time: August 02, 2016 at 12:17. gr2 ED Course: 12:16 Patient visited by Julita Mcleod. gr2 12:16 Sterling Marcelino is Private Physician. gr2 12:16 Patient moved to Waiting gr2 12:20 Patient moved to Pre RCE gr2 12:22 Triage Initiated ck1 12:25 Patient moved to Triage 3 ck1 12:27 Lyle Good PA-C is PHCP. ar2 12:27 Laina Roper MD is Attending Physician. ar2 12:27 Patient visited by Lyle Good PA-C. ar2 12:33 Patient moved to I6 ck1 12:58 Darryl Lee is Referral Physician. ar2 13:09 The patient / caregiver is instructed regarding the plan of care and ED course. jmk 13:09 No IV's were initiated during this patient's visit. No procedures done that require jmk assistance. Order Results: There are currently no results for this order. Outcome: 12:59 Discharge ordered by Provider. ar2 13:09 Discharge Assessment: Patient awake, alert and oriented x 3. No cognitive and/or jmk functional deficits noted. Patient verbalized understanding of disposition instructions. patient administered narcotics - no. The following High Risk Discharge criteria are identified: None. Condition: good. Discharge instructions given to locomotive supervisor, Instructed on discharge instructions, follow up and referral plans. medication usage, Demonstrated understanding of instructions. No special radiology studies were completed. Property :Personal belongings accompany Pt. 13:12 Patient left the ED. k Signatures: Benson Ruff,RN RN Katia Mccallum RN RN ck1 Lyle Good PA-C PA-C ar2 Julita Mcleod gr2 MTDD
--- NOTE | 2016-08-04 14:13 | EDDOCDS ---
Nurse's Notes [facility] Name: Teddy Recio Age: 81 yrs Sex: Male : 1935 Arrival Date: 08/02/2016 Time: 12:12 Bed I6 / 28 Private MD: Sterling Marcelino A. Diagnosis: Cystostomy malfunction-right NEPHROSTOMY bag leak Presentation: 08/02 12:21 Presenting complaint: Patient states: Needs nephrostomy nag replaced per [facility] staff. ck1 States bag is leaking. Adult Sepsis Screening: The patient does not have new or worsening altered mentation. Patient's respiratory rate is less than 22. Systolic blood pressure is greater than 100. Patient has a qSOFA score of 0- Negative Sepsis Screen. Suicide/Homicide risk assessment- the patient denies having any suicidal and/or homicidal ideations and does not present with any other emotional, behavioral or mental health complaints. Status: Patient is not a service control operator or dependent. Transition of care: patient was received from [facility]. 12:21 Method Of Arrival: Walkin/Carried/Asstd ck1 12:21 Acuity: MAGEN Level 4 ck1 Triage Assessment: 12:25 General: Appears in no apparent distress, comfortable, Behavior is appropriate for age, ck1 cooperative. Pain: Denies pain. Neurological: Level of Consciousness is awake, alert. Derm: Skin is intact, is healthy with good turgor, Skin is pink, warm & dry. Musculoskeletal: Circulation, motion, and sensation intact Range of motion intact in all extremities. Historical: - Allergies: no known allergies; - Home Meds: 1. Paxil 20 mg Oral tab 1 tab nightly 2. Paxil 40 mg Oral tab 1 tab nightly 3. Colace 100 mg oral cap 1 cap 2 times per day 4. omeprazole 20 mg Oral cpDR 1 cap once daily 5. pravastatin 40 mg oral tab 1 tab nightly 6. Os-Ronald 500 + D3 500 mg(1,250mg) -200 unit oral tab 1 tab twice a day 7. Seroquel 200 mg Oral tab 1 tab once daily at 1630 8. Miralax 17 gram Oral pwpk 1 packet once daily 9. Dulcolax (bisacodyl) 10 mg Rectal supp 1 suppository once daily on day 4 without BM 10. Milk of Magnesia 400 mg/5 mL Oral susp 30 mL PRN 11. Debrox 6.5 % Otic drop 1 drop each ear \T\HS every Sunday and Sunday 12. chlorhexidine gluconate 0.12 % MM mwsh 15 mL 2 times per day 13. glimepiride 2 mg Oral tab 1 tab once daily 14. DuoNeb 0.5 mg-3 mg(2.5 mg base)/3 mL Inhl nebu 3 mL 4 times per day and q2h PRN - PMHx: BPH; Diabetes - NIDDM: controlled; GERD; Hiatal Hernia; Hypercholesterolemia; Hypertension; [place]; MVP; Severe MR; - PSHx: TURP; - Social history: Smoking status: Patient states was never smoker of tobacco. No barriers to communication noted, The patient speaks fluent Australian, Speaks appropriately for age. - Family history: Not pertinent. - : The pt / caregiver states he / she is not on anticoagulants. Home medication list is obtained from the facility AUG. - Exposure Risk Screening:: None identified. Screenin:20 Infection Control. gr2 13:09 Screening information is obtained from the patient. Fall risk: No risks identified. [facility] Assistance ADL's: requires no assistance with activities of daily living. Abuse/DV Screen: The patient / caregiver reports he/she is: not in a situation that causes fear, pain or injury. Nutritional screening: No deficits noted. Advance Directives: Currently, there is no health care proxy. There is no active DNR order. There is no living will. There is no Power of Medical Billing And Coding Instructor. home support is adequate. Assessment: 12:49 General: Appears in no apparent distress, pleasant and upbeat demeanor. [facility] with [facility] yellow urine. nephrostomy tube with drainage noted on tubing, drainage bag with leakage noted to bottom of bag. JRC at side. 13:09 General: nephrostomy drainage bag changed with use of adapter as provided by [facility] interventional radiology... Vital Signs: 12:17 BP 112 / 64; Pulse 68; Resp 18 S; Temp 96.9(T); Pulse Ox 96% on R/A; Weight 68.04 kg gr2 (R); Height 5 ft. 6 in. (167.64 cm) (R); Pain 2/10; 12:17 Body Mass Index 24.21 (68.04 kg, 167.64 cm) gr2 Vitals: 12:17 Log In Time: August 02, 2016 at 12:17. gr2 ED Course: 12:16 Patient visited by Julita Mcleod. gr2 12:16 Sterling Marcelino is Private Physician. gr2 12:16 Patient moved to Waiting gr2 12:20 Patient moved to Pre RCE gr2 12:22 Triage Initiated ck1 12:25 Patient moved to Triage 3 ck1 12:27 Lyle Good PA-C is PHCP. ar2 12:27 Laina Roper MD is Attending Physician. ar2 12:27 Patient visited by Lyle Good PA-C. ar2 12:33 Patient moved to I6 ck1 12:58 Darryl Lee is Referral Physician. ar2 13:09 The patient / caregiver is instructed regarding the plan of care and ED course. jmk 13:09 No IV's were initiated during this patient's visit. No procedures done that require jmk assistance. 13:54 [facility] Payment Agreement was scanned into [employer] and attached to record. mm15 08/04 09:06 T-Sheet-- Draft Copy was scanned into [employer] and attached to record. lg Order Results: There are currently no results for this order. Outcome: 08/02 12:59 Discharge ordered by Provider. ar2 13:09 Discharge Assessment: Patient awake, alert and oriented x 3. No cognitive and/or jmk functional deficits noted. Patient verbalized understanding of disposition instructions. patient administered narcotics - no. The following High Risk Discharge criteria are identified: None. Condition: good. 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 medication usage, Demonstrated understanding of instructions. No special radiology studies were completed. Property :Personal belongings accompany Pt. 13:12 Patient left the ED. k Signatures: Benson Ruff,RN RN Josafat Schneider, aKtia Payne lg, RN RN ck1 Lyle Good PA-C PA-C ar2 Julita Mcleod gr2 Chavo Burroughs mm15 Chart Complete MTDD
--- NOTE | 2016-08-04 14:13 | EDDOCDS ---
Physician Documentation [facility] Name: Teddy Recio Age: 81 yrs Sex: Male : 1935 Arrival Date: 08/02/2016 Time: 12:12 Bed I6 / 28 Private MD: Sterling Marcelino A. Disposition: 08/02/16 12:59 Discharged to Home/Self Care. Impression: Cystostomy malfunction - right NEPHROSTOMY bag leak. - Condition is Stable. - Discharge Instructions: Percutaneous Nephrostomy, Care After. - Medication Reconciliation, Local Pharmacy Hours form. - Follow up: Darryl Lee; When: As needed; Reason: Continuance of care. - Problem is new. - Symptoms are resolved. - Notes: a spare bag has been sent with patient in case future leak occurs. follow up with urology and Dr. Norris as schedule for continued maintanence. Historical: - Allergies: no known allergies; - Home Meds: 1. Paxil 20 mg Oral tab 1 tab nightly 2. Paxil 40 mg Oral tab 1 tab nightly 3. Colace 100 mg oral cap 1 cap 2 times per day 4. omeprazole 20 mg Oral cpDR 1 cap once daily 5. pravastatin 40 mg oral tab 1 tab nightly 6. Os-Ronald 500 + D3 500 mg(1,250mg) -200 unit oral tab 1 tab twice a day 7. Seroquel 200 mg Oral tab 1 tab once daily at 1630 8. Miralax 17 gram Oral pwpk 1 packet once daily 9. Dulcolax (bisacodyl) 10 mg Rectal supp 1 suppository once daily on day 4 without BM 10. Milk of Magnesia 400 mg/5 mL Oral susp 30 mL PRN 11. Debrox 6.5 % Otic drop 1 drop each ear \T\HS every Sunday and Sunday 12. chlorhexidine gluconate 0.12 % MM mwsh 15 mL 2 times per day 13. glimepiride 2 mg Oral tab 1 tab once daily 14. DuoNeb 0.5 mg-3 mg(2.5 mg base)/3 mL Inhl nebu 3 mL 4 times per day and q2h PRN - PMHx: BPH; Diabetes - NIDDM: controlled; GERD; Hiatal Hernia; Hypercholesterolemia; Hypertension; [place]; MVP; Severe MR; - PSHx: TURP; - Social history: Smoking status: Patient states was never smoker of tobacco. No barriers to communication noted, The patient speaks fluent Uzbek, Speaks appropriately for age. - Family history: Not pertinent. - : The pt / caregiver states he / she is not on anticoagulants. Home medication list is obtained from the facility MAR. - Exposure Risk Screening:: None identified. Vital Signs: 08/02 12:17 BP 112 / 64; Pulse 68; Resp 18 S; Temp 96.9(T); Pulse Ox 96% on R/A; Weight 68.04 kg / gr2 150 lbs (R); Height 5 ft. 6 in. (167.64 cm) (R); Pain 2/10; 12:17 Body Mass Index 24.21 (68.04 kg, 167.64 cm) gr2 MDM: 12:57 Misc. Nursing Order ordered. ar2 12:59 Financial registration complete. mm15 13:54 [facility] Payment Agreement was scanned into [employer] and attached to record. mm15 08/04 09:06 T-Sheet-- Draft Copy was scanned into [employer] and attached to record. lg Signatures: Benson Ruff RN RN Josafat Schneider, Vega Ferrari lg Katia Ken RN RN ck1 Lyle Good PA-C PA-C ar2 Chavo Burroughs mm15 The chart was reviewed and I authenticate all verbal orders and agree with the evaluation and treatment provided.Attachments: 08/02 13:54 [facility] Payment Agreement mm15 08/04 09:06 T-Sheet-- Draft Copy lg Chart Complete MTDD
--- NOTE | 2016-08-04 14:13 | EDDOCDS ---
Physician Documentation [facility] Name: Teddy Recio Age: 81 yrs Sex: Male : 1935 Arrival Date: 08/02/2016 Time: 12:12 Bed I6 / 28 Private MD: Sterling Marcelino A. Disposition: 08/02/16 12:59 Discharged to Home/Self Care. Impression: Cystostomy malfunction - right NEPHROSTOMY bag leak. - Condition is Stable. - Discharge Instructions: Percutaneous Nephrostomy, Care After. - Medication Reconciliation, Local Pharmacy Hours form. - Follow up: Darryl Lee; When: As needed; Reason: Continuance of care. - Problem is new. - Symptoms are resolved. - Notes: a spare bag has been sent with patient in case future leak occurs. follow up with urology and Dr. Norris as schedule for continued maintanence. Historical: - Allergies: no known allergies; - Home Meds: 1. Paxil 20 mg Oral tab 1 tab nightly 2. Paxil 40 mg Oral tab 1 tab nightly 3. Colace 100 mg oral cap 1 cap 2 times per day 4. omeprazole 20 mg Oral cpDR 1 cap once daily 5. pravastatin 40 mg oral tab 1 tab nightly 6. Os-Ronald 500 + D3 500 mg(1,250mg) -200 unit oral tab 1 tab twice a day 7. Seroquel 200 mg Oral tab 1 tab once daily at 1630 8. Miralax 17 gram Oral pwpk 1 packet once daily 9. Dulcolax (bisacodyl) 10 mg Rectal supp 1 suppository once daily on day 4 without BM 10. Milk of Magnesia 400 mg/5 mL Oral susp 30 mL PRN 11. Debrox 6.5 % Otic drop 1 drop each ear \T\HS every Sunday and Sunday 12. chlorhexidine gluconate 0.12 % MM mwsh 15 mL 2 times per day 13. glimepiride 2 mg Oral tab 1 tab once daily 14. DuoNeb 0.5 mg-3 mg(2.5 mg base)/3 mL Inhl nebu 3 mL 4 times per day and q2h PRN - PMHx: BPH; Diabetes - NIDDM: controlled; GERD; Hiatal Hernia; Hypercholesterolemia; Hypertension; [place]; MVP; Severe MR; - PSHx: TURP; - Social history: Smoking status: Patient states was never smoker of tobacco. No barriers to communication noted, The patient speaks fluent Estonian, Speaks appropriately for age. - Family history: Not pertinent. - : The pt / caregiver states he / she is not on anticoagulants. Home medication list is obtained from the facility MAR. - Exposure Risk Screening:: None identified. Vital Signs: 08/02 12:17 BP 112 / 64; Pulse 68; Resp 18 S; Temp 96.9(T); Pulse Ox 96% on R/A; Weight 68.04 kg / gr2 150 lbs (R); Height 5 ft. 6 in. (167.64 cm) (R); Pain 2/10; 12:17 Body Mass Index 24.21 (68.04 kg, 167.64 cm) gr2 MDM: 12:57 Misc. Nursing Order ordered. ar2 12:59 Financial registration complete. mm15 13:54 [facility] Payment Agreement was scanned into Due[employer] and attached to record. mm15 08/04 09:06 T-Sheet-- Draft Copy was scanned into Due[employer] and attached to record. lg Signatures: Benson Ruff RN RN Josafat Schneider, Vega Ferrari lg Katia Ken RN RN ck1 Lyle Good PA-C PA-C ar2 Chaov Burroughs mm15 The chart was reviewed and I authenticate all verbal orders and agree with the evaluation and treatment provided.Attachments: 08/02 13:54 [facility] Payment Agreement mm15 08/04 09:06 T-Sheet-- Draft Copy lg Chart Complete MTDD
[2016-08-09] MEDS ORDERED: AMOX875T2 PO (09:15)
== END 2016-08-02 13:12 | disposition home or self-care (01) ==
LOC: M ED 12:12
DX: N99.512 Cystostomy malfunction (principal); N40.0 Benign prostatic hyperplasia without lower urinary tract symptoms; E11.9 Type 2 diabetes mellitus without complications; K21.9 Gastro-esophageal reflux disease without esophagitis; K44.9 Diaphragmatic hernia without obstruction or gangrene; E78.00 Pure hypercholesterolemia, unspecified; I10 Essential (primary) hypertension; I25.2 Old myocardial infarction; I34.1 Nonrheumatic mitral (valve) prolapse; F72 Severe intellectual disabilities; Z79.899 Other long term (current) drug therapy
CPT/HCPCS: 71260; 74178; 99281; Q9967

== ENCOUNTER → 2016-08-02 | Outpatient (CLI) | payer MEDICARE, MEDICAID ==
[~2016-08-02] MED LIST changes: -CIPROFLOXACIN 500 MG TAB PO SCH; -CONRAY-60 60% 50ML VIAL (Q9961) As Ordered ONE; -CONRAY-60 60% 50ML VIAL (Q9961) XX ONE; -GLYCOPYRROLATE INJ 0.2 MG/ML 2 ML VIAL As Ordered ONE; +ISOVUE-370 76% 100ML VIAL (Q9967) As Ordered ONE; -LIDOCAINE 2% INJ 100 MG/5 ML SDV (FOR ANES.) As Ordered ONE; -LR 1,000 ML IV SCH; -METHYLENE BLUE 1% 10 ML VIAL (Q9968) As Ordered ONE; -MIDAZOLAM INJ 2 MG/2 ML VIAL (J2250) As Ordered ONE; -ONDANSETRON 4MG/2ML VIAL (J2405) As Ordered ONE; -PHENYLephrine HCL 500 MCG/5 ML (100MCG/ML) SYRINGE (J2370) As Ordered ONE; -PROPOFOL 200 MG/20 ML VIAL As Ordered ONE; -ROCURONIUM BROMIDE 50 MG/5 ML VIAL As Ordered ONE; -ePHEDrine SULFATE 25 MG/5 ML(5MG/ML) SYRINGE As Ordered ONE; -fentaNYL 250 MCG/5 ML INJECTION (J3010) As Ordered ONE; -traMADol 50 MG TAB PO SCH
--- NOTE | 2016-08-02 20:35 | REP ---
CT CHEST WITH CONTRAST: 08/02/2016. Clinical history: Bladder carcinoma. Comparison: CT chest 04/17/2015, chest x-ray 05/29/2016. Technique: Scanning through the chest after bolus of 100 mL Isovue 370. Coronal and sagittal reconstructions provided. Findings. Lungs are mildly hyperinflated. There is dependent atelectatic changes in both lower lung zones. There is mild bronchiectatic change in both lower lung zones and perihilar regions. Underlying fibrosis and some COPD noted. Some pulmonary artery hypertension evident. There is some minor patchy fibrotic or atelectatic change medial segment right middle lobe in the inferior lingular segment at the anterior left lung base. There is a small calcified granuloma anterior segment right upper lobe on image 42. No pneumothorax or pneumomediastinum, pleural thickening or pleural based mass. There is a calcified granuloma image 50 in the right lower lobe, unchanged. I do not see other significant lung findings. Heart is not grossly enlarged. There is no pericardial thickening or effusion. There is a hiatal hernia. It is moderate sized and unchanged. The aorta has atherosclerotic calcifications at the arch and descending portion without aneurysm or dissection. The main right and left pulmonary arteries in the mediastinum are without filling defects. No pathologic sized mediastinal or hilar adenopathy. No axillary or supraclavicular mass. Bone windows show the sternum, manubrium, medial clavicles, visualized portion of the humeral heads, glenohumeral joints and scapula intact. Visualized ribs are without fracture or focal lesion. Thoracic spine shows kyphosis. There is vacuum phenomena at multiple levels in the mid lower thoracic region with marginal osteophytes throughout. Some minor wedging of T4 superior endplate. There is no paraspinal or other findings to suggest that this is acute. Upper abdominal structures would be fully discussed in the CT abdomen. Impression: 1. Some basilar dependent atelectatic change and curvilinear fibroatelectatic changes medial segment right middle lobe and the inferior lingular segment of the left upper lobe at the anterior left lung base. 2. 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 3. Moderate sized hiatal hernia unchanged. No visualized lung, mediastinal or bony metastatic lesion. Signed by Miah Wiseman MD 08/03/2016 12:46 P
--- NOTE | 2016-08-02 20:46 | REP ---
CT ABDOMEN AND PELVIS WITHOUT AND WITH IV CONTRAST: 08/02/2016 CLINICAL HISTORY: Bladder carcinoma. COMPARISON: CT without contrast, 06/26/2016. TECHNIQUE: The patient received a bolus of 100 mL Isovue-370, scanning through the abdomen and pelvis. Coronal and sagittal reconstructions are provided. There were precontrast and delayed images performed as well. CT ABDOMEN: Heart not enlarged. Moderate sized hiatal hernia again seen. No pericardial thickening or effusion. The liver is not enlarged. There are multiple low-density lesions again seen, largest in the left hepatic lobe. There are two lesions seen more posteriorly 2.6 cm, more anteriorly 2.1 cm and without enhancement, consistent with cysts. There are several smaller lesions less than a centimeter in the right hepatic lobe. All this unchanged. Clips from prior cholecystectomy noted. No definite solid mass. No pericholecystic fluid. No hepatosplenomegaly or focal splenic lesion. Pancreas without gross mass or ductal dilatation. No adjacent peripancreatic fluid or adenopathy. The thoracic aorta shows tortuosity and calcifications. The abdominal aorta is also tortuous with calcifications, but no aneurysm or dissection. Celiac axis, SMA intact as are the renal arteries. There is a percutaneous nephrostomy tube in the right kidney and collecting system into the extrarenal pelvis. There is no hydronephrosis. The right ureter unremarkable. Left kidney shows no hydronephrosis, but there is mild hydroureter proximally. No stone in either ureter. Colon shows moderate constipation from cecum to mid left colon. Small bowel loops are fluid filled but not abnormally dilated. There is no perforation or free air in the abdomen. I do not see abdominal adenopathy. Adrenal glands show no mass. Kidneys show lobation and atrophic change on the right compared to the left. No definite stone on either side. Bone windows show lumbar and lower thoracic levels with marginal osteophytes throughout and some degenerative disc change with facet arthritis, but no destructive lesion or acute compression deformity. Visualized ribs are intact. Facet arthropathy lower lumbar spine. CT PELVIS: The bony hips show degenerative changes with hip joint space narrowing and rim osteophytes acetabular roof and femoral heads. The iliac bones show a bone island on the left near the SI joint. The SI joints, sacral ala, and foramina are unremarkable. Pubic rami and symphysis pubis intact. Lumbosacral junction intact with only facet arthropathy and minor degenerative disc change. No dilated ureters in the pelvis. The bladder shows abnormal wall thickening and lobulations with findings suspicious for bladder neoplasia. Certainly, a component of muscular hypertrophy may be present in the bladder wall from longstanding distension now that it is collapsed but irregularity and lobulations of that margin are suspicious along with history of hematuria and bladder carcinoma. Seminal vesicles symmetric. Prostate indents the bladder base. There is no ventral or inguinal hernia nor pathologic inguinal adenopathy. I do not see pathologic pelvic lymphadenopathy. IMPRESSION: 1. Abnormal thickening, lobulated contour, and masses involving the bladder highly suggestive of bladder carcinoma. Although a longstanding bladder distension could certainly cause thickening of the bladder wall when it is decompressed, this is clearly abnormal bladder. 2. Moderately large hiatal hernia, multiple hepatic cysts, and prior cholecystectomy again seen. 3. Right percutaneous nephrostomy. No renal stone. No hydronephrosis. Mild hydroureter on the left proximally. 4. Moderately severe constipation. Small bowel loops fluid-filled without dilatation. No free air, obstruction, or mass. 5. No abdominal or pelvic adenopathy, generalized ascites, or other acute finding. Unreviewed
== END ==
LOC: M RAD 17:28
PROVIDERS: ATTEND Nurse Practitioner Women's Health
DX: C67.9 Malignant neoplasm of bladder, unspecified (principal); K44.9 Diaphragmatic hernia without obstruction or gangrene; K76.89 Other specified diseases of liver; N13.4 Hydroureter; K59.00 Constipation, unspecified; J44.9 Chronic obstructive pulmonary disease, unspecified; J84.10 Pulmonary fibrosis, unspecified
CPT/HCPCS: 71260; 74178; Q9967

== ENCOUNTER → 2016-08-09 | Outpatient (CLI) | payer MEDICARE, MEDICAID ==
[~2016-08-09] MED LIST changes: +ISOVUE-300 61% 50ML VIAL (Q9967) As Ordered ONE; +LIDOCAINE 2% MDV 20 ML VIAL As Ordered ONE; +SODIUM BICARBONATE 8.4% INJ 50MEQ 50 ML VIAL As Ordered ONE; +cefTRIAXone SOD 1 GM VIAL (J0696) As Ordered ONE
--- NOTE | 2016-08-09 16:03 | REPKIM ---
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 The catheter needs to be changed as part of preventive tube maintenance. Patient with a recent history of UTI. Patient is scheduled to have urology surgery in September 2016. PROCEDURE: Nephrostomy catheter check and change on the right INTERVENTIONALIST: Bhavani Norris MD MEDICATIONS: Local Lidocaine, Rocephin 1 gm IV CONTRAST: 10 mL Isovue 300 EBL: 1 mL FLUORO TIME: 0.4 minutes DEVICE USED: 12F Nephrostomy (Resolve) catheter Lot#[id number] Description of procedure: The risks, benefits, and alternatives of the procedure were discussed with the patients legal guardian, Ms Aurea Smith, and informed phone consent was obtained and witnessed. The patient was brought to the interventional radiology suite where a timeout procedure was performed. The patient was placed in the supine position with the right side up. The existing indwelling catheter and the area surrounding the insertion site were prepped and draped with standard technique. Contrast was injected through the existing nephrostomy catheter. This showed the catheter is patent with its tip in the renal pelvis. A guidewire was advanced through the existing drainage catheter into the renal pelvis. The existing catheter was unlocked and removed over the guidewire. A 12F nephrostomy catheter was then advanced over the guidewire. The guidewire was removed and the distal loop of the nephrostomy drainage catheter was formed and locked in the renal pelvis. Contrast was hand injected, confirming satisfactory drainage catheter positioning. The drainage catheter exit site was covered with a sterile dressing. The nephrostomy drainage catheter was flushed and connected to a gravity drainage bag. The patient tolerated the procedure well with no immediate complications. This procedure was performed using fluoroscopy. Dr. Norris was present. Description of findings: The new nephrostomy catheter is in appropriate positioning and works well. IMPRESSION: Successful exchange of Nephrostomy urinary diversion tube on the right as discussed above. Plan: Patient was given three additional days of antibiotic coverage for his recent UTI. cc: Darryl Lee MD [facility]
== END | disposition home or self-care (01) ==
LOC: M IRPRO 08:01
DX: N13.0 Hydronephrosis with ureteropelvic junction obstruction (principal); N32.9 Bladder disorder, unspecified; Z87.440 Personal history of urinary (tract) infections
CPT/HCPCS: 50435; C1729; C1769; J0696; Q9967

== ENCOUNTER → 2016-09-07 | Outpatient (CLI) | payer MEDICARE, MEDICAID ==
[~2016-09-07] MED LIST changes: -ISOVUE-300 61% 50ML VIAL (Q9967) As Ordered ONE; -LIDOCAINE 2% MDV 20 ML VIAL As Ordered ONE; -SODIUM BICARBONATE 8.4% INJ 50MEQ 50 ML VIAL As Ordered ONE; -cefTRIAXone SOD 1 GM VIAL (J0696) As Ordered ONE
[2016-09-07 10:19] LABS: INR 1.09
[2016-09-07 10:26] LABS: MEAN CORPUSCULAR HEMOGLOBIN 26.9 pg (27.0-33.0); MEAN CORPUSCULAR HGB CONC 31.1 g/dl (32.0-36.5); MEAN CORPUSCULAR VOLUME 86.3 fl (80.0-96.0); RED CELL DISTRIBUTION WIDTH 13.4 % (11.5-14.5)
[2016-09-07 10:27] LABS: CALCIUM LEVEL 8.4 MG/DL (8.8-10.2); CREATININE FOR GFR 1.44 MG/DL (0.70-1.30); GLOMERULAR FILTRATION RATE 49.9 (>35); POTASSIUM SERUM 4.4 MEQ/L (3.5-5.1)
--- NOTE | 2016-09-08 22:08 | ECGEPIP ---
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
== END ==
LOC: M LAB 08:44
PROVIDERS: ATTEND Urology
DX: C67.2 Malignant neoplasm of lateral wall of bladder (principal)

== ENCOUNTER → 2016-09-08 | Outpatient (REF) | payer MEDICARE, MEDICAID | LOC: M SMT 11:22 | PROVIDERS: ATTEND Urology | DX: C67.2 Malignant neoplasm of lateral wall of bladder (principal) ==

== ENCOUNTER → 2016-09-14 | Outpatient (CLI) | payer MEDICARE, MEDICAID ==
[~2016-09-14] MED LIST changes: -COLA100C PO; +COLA100C3 PO; +ISOVUE-300 61% 50ML VIAL (Q9967) As Ordered ONE; +SODIUM BICARBONATE 8.4% INJ 50MEQ 50 ML VIAL As Ordered ONE
--- NOTE | 2016-09-14 15:19 | REPKIM ---
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 Patient with a recent history of UTI taking Bactrim antibiotics. Patient is scheduled to have urology surgery next week. Patient presents because his nephrostomy catheter was pulled out inadvertently. PROCEDURE: Sinogram of the tract and nephrostomy catheter replacement on the right INTERVENTIONALIST: Bhavani Norris MD MEDICATIONS: Local Lidocaine CONTRAST: 25 mL Isovue 300 EBL: 5 mL FLUORO TIME: 2.1 minutes DEVICE USED: 12F Nephrostomy (Resolve) catheter Description of procedure: The risks, benefits, and alternatives of the procedure and associated intravenous sedation were discussed with the patient/ family and informed written consent was obtained. The patient was brought to the interventional radiology suite where a timeout procedure was performed. The right flank was prepped and draped in the usual sterile fashion. The skin exit site of the cutaneous tract of the previous nephrostomy drainage catheter was cannulated with a 5-Zimbabwean catheter. Contrast was injected showing a persistent patent tract to the kidney. The tract was successfully traversed with a hydrophilic guidewire and the catheter was advanced into the renal pelvis. Initial aspirate revealed relatively clear urine. A sample of the fluid (urine) sent c/s. Contrast was gently hand injected through the catheter to confirm that it was within the renal pelvis. Using this access, a 12-Zimbabwean nephrostomy drainage catheter was placed over a guidewire. The guidewire was removed and the distal loop of the nephrostomy drainage catheter was formed and locked in the renal pelvis. Contrast was gently hand injected, confirming its tip in the renal pelvis. The drainage catheter exit site was covered with a sterile dressing. The nephrostomy drainage catheter was flushed and connected to gravity drainage. The patient tolerated the procedure well with no immediate complications. This procedure was performed using fluoroscopy. Dr. Norris was present. IMPRESSION: Successful right sided nephrostomy catheter replacement as discussed above. cc: MD Neris Cordova, LORE MORGAN
== END | disposition home or self-care (01) ==
LOC: M IRPRO 12:49
DX: Z43.6 Encounter for attention to other artificial openings of urinary tract (principal); N32.89 Other specified disorders of bladder; N13.0 Hydronephrosis with ureteropelvic junction obstruction
CPT/HCPCS: 50435; 87075; 87088; 87186; C1729; C1769; C1887; Q9967

== ENCOUNTER 2016-09-19 05:45 | Inpatient (IN) | payer MEDICARE, MEDICAID ==
[2016-09-19] VITALS (13 sets, daily range): BP systolic 93–129; BP diastolic 57–66; O2SAT 99–100
[~2016-09-19] VITALS: Ht 175.3 cm; Wt 66.5 kg
[~2016-09-19 05:45] MED LIST changes: -ISOVUE-300 61% 50ML VIAL (Q9967) As Ordered ONE; -SODIUM BICARBONATE 8.4% INJ 50MEQ 50 ML VIAL As Ordered ONE
[2016-09-19] MEDS ORDERED: LR 1,000 ML IV SCH ×2 (06:00→17:15)
[2016-09-19] MEDS ORDERED: cefoTEtan DISODIUM 2 GM in D5W MINI-BAG PLUS 100 ML IV ONE (06:30)
[2016-09-19] MEDS ORDERED: BACT800T5 PO (07:05)
[2016-09-19] MEDS ORDERED: PROPOFOL 200 MG/20 ML VIAL As Ordered ONE (07:16)
[2016-09-19] MEDS ORDERED: fentaNYL 250 MCG/5 ML INJECTION (J3010) As Ordered ONE (07:16)
[2016-09-19] MEDS ORDERED: ROCURONIUM BROMIDE 50 MG/5 ML VIAL As Ordered ONE ×3 (07:16→11:49)
[2016-09-19] MEDS ORDERED: SEVOFLURANE INHAL SOLN 250 ML BTL As Ordered ONE (07:16)
[2016-09-19] MEDS ORDERED: LIDOCAINE 2% INJ 100 MG/5 ML SDV (FOR ANES.) As Ordered ONE (07:16)
[2016-09-19] MEDS ORDERED: MIDAZOLAM INJ 2 MG/2 ML VIAL (J2250) As Ordered ONE (07:16)
[2016-09-19] MEDS ORDERED: ePHEDrine SULFATE 25 MG/5 ML(5MG/ML) SYRINGE As Ordered ONE ×3 (08:04→12:16)
[2016-09-19] MEDS ORDERED: PHENYLephrine HCL 500 MCG/5 ML (100MCG/ML) SYRINGE (J2370) As Ordered ONE (08:04)
[2016-09-19] MEDS ORDERED: PHENYLEPHRINE INJ 10MG/ML VIAL (J2370) As Ordered ONE (08:04)
[2016-09-19] MEDS ORDERED: NEOSTIGMINE 1MG/ML 5 ML SYRINGE (J2710) As Ordered ONE (09:36)
[2016-09-19] MEDS ORDERED: GLYCOPYRROLATE INJ 0.2 MG/ML 2 ML VIAL As Ordered ONE (09:36)
[2016-09-19] MEDS ORDERED: HYDROmorphone HCL 2 MG/ML 1ML VIAL (J1170) As Ordered ONE (09:50)
[2016-09-19] MEDS ORDERED: ONDANSETRON 4MG/2ML VIAL (J2405) As Ordered ONE (09:50)
[2016-09-19] MEDS ORDERED: cefoTEtan INJ 2GM VIAL (S0074) As Ordered ONE (14:07)
[2016-09-19] MEDS ORDERED: dexameTHASONE 4 MG/ML 1ML VIAL (J1100) As Ordered ONE (15:45)
[2016-09-19] MEDS ORDERED: KETOROLAC 60 MG/2 ML VIAL (J1885) As Ordered ONE (15:46)
[2016-09-19] MEDS ORDERED: HumaLOG INSULIN (NovoLOG) PER UNIT As Ordered ONE (16:48)
[2016-09-19] MEDS ORDERED: KCL 20MEQ IN D5/0.45NS 1000ML 1,000 ML IV SCH (17:15)
[2016-09-19] MEDS ORDERED: fentaNYL 100 MCG/2 ML INJECTION (J3010) IV PRN (17:15)
[2016-09-19] MEDS ORDERED: ONDANSETRON 4MG/2ML VIAL (J2405) IV PRN ×2 (17:15)
[2016-09-19] MEDS ORDERED: HumaLOG INSULIN (NovoLOG) PER UNIT SC ONE (17:30)
[2016-09-19 17:43] LABS: MEAN CORPUSCULAR HGB CONC 28.8 g/dl (32.0-36.5); MEAN CORPUSCULAR VOLUME 90.3 fl (80.0-96.0); RED CELL DISTRIBUTION WIDTH 13.9 % (11.5-14.5)
[2016-09-19 17:55] LABS: CALCIUM LEVEL 8.3 MG/DL (8.8-10.2); CREATININE FOR GFR 2.65 MG/DL (0.70-1.30); GLOMERULAR FILTRATION RATE 24.7 (>35); MAGNESIUM LEVEL 2.2 MG/DL (1.8-2.4); PHOSPHORUS LEVEL 5.6 MG/DL (2.5-4.9)
[2016-09-19 17:59] LABS: POTASSIUM SERUM 5.3 MEQ/L (3.5-5.1)
[2016-09-19] MEDS ORDERED: DEXTROSE 50% 50 ML SYRINGE IV PRN (19:15)
[2016-09-19] MEDS ORDERED: GLUCAGON FOR INJ 1 MG VIAL (J1610) SC PRN (19:15)
[2016-09-19] MEDS ORDERED: GLUCOSE 4 GM CHEW TABLET PO PRN (19:15)
[2016-09-19 19:25] LABS: ABG HCO3 22.5 MEQ/L (22.0-26.0); ABG PARTIAL PRESSURE CO2 42.2 mmHg (35.0-45.0); ABG PARTIAL PRESSURE O2 116.3 mmHg (75.0-100.0); ABG TOTAL CO2 23.8 MEQ/L (23.0-31.0); ABG pH (ARTERIAL) 7.345 UNITS (7.350-7.450)
--- NOTE | 2016-09-19 19:30 | REP ---
Portable chest, single AP view, the patient semi upright, 07:04 p.m., 09/19/2016. Comparison is 2016. There is an incomplete inspiratory effort with under aeration of the lung bases. There is a nasogastric tube coiled back upon itself with the tip in the upper esophagus. Cardiac size is normal for portable positioning. The carolyn, mediastinum, bony thorax are unremarkable for portable positioning. Signed by Dmitri Latham MD 09/19/2016 07:22 P
--- NOTE | 2016-09-19 20:00 | CCN ---
DATE: 09/19/2016 PULMONARY CRITICAL CARE NOTE I was called to see this 81-year-old male postoperatively from extensive urologic robotic surgery for hypoxemia. He received approximately 3 liters of fluid intraoperatively. He had 200 mL of blood loss. The case was quite prolonged, over several hours. Patient was extubated in the recovery room, but hypoxemia and hypotension were encountered. He has required supplemental oxygen at high flow rates and intermittent dosing of phenylephrine. The patient is unable to give history, but his past medical history per the electronic medical record includes epb-qasbcsl-mlyudykfc diabetes mellitus, extensive urologic issues over the course of several years. He has a hiatal hernia, gastroesophageal reflux disease, hypertension, coronary artery disease, mitral regurgitation. He had a right empyema in 2008 and a bowel obstruction. His temperature is 97, pulse rate 72, respirations 14, blood pressure 108/61. He is wearing a non-rebreather mask with saturations of 92%. HEENT: Oral and nasal mucosa are dry. There is a nasogastric tube in the right nares. NECK: Supple. No meningismus. Jugular veins are 2 cm above the sternal angle at 45 degrees. Carotid upstroke sluggish, no bruit. Heart sounds are regular and distant. Breath sounds are diminished, coarse, clear bilaterally. No focal sounds. Abdomen is soft. There is a James-Laurent (SUMA) drain with bloody drainage, an ileostomy and a right nephrostomy tube. No bowel sounds. Diagnostic studies were reviewed. Sodium is 135, potassium 5.3, chloride 100, CO2 28, BUN 23, creatinine 2.65, glucose 318, phosphorus is 5.3. White count 19, hemoglobin 9.8, hematocrit 31.9, platelet count 208,000. Chest x-ray was performed at the bedside and shows no infiltrates. The nasogastric (NG) tube, however, is coiled in the esophagus. 1. The primary problem requiring critical attention is hypoxemia. Will administer supplemental oxygen with high-flow nasal cannula and check an arterial blood gas. 2. Hypotension. The patient is quite fluid positive. He may require pressors if his blood pressure becomes soft once again. 3. Acute kidney injury. Creatinine is up for him to 2.6. Will follow renal indices. 4. Hyperkaliemia. We will change the IV solution to eliminate potassium chloride. 5. Ozx-ejjzwei-hxcvsczyi diabetes mellitus. I will arrange for fingerstick, blood sugars and coverage for the time being. 6. Hiatal hernia. Will discontinue the nasogastric (NG) tube, as it is not progressing into the stomach. 7. Ulcer prophylaxis has been arranged with Protonix. Will order thromboembolitic deterrents (TEDs) and sequentials deep venous thrombosis (DVT) prophylaxis. The patient's condition is critical. Intensive care unit (ICU) care is appropriate. One hour and 15 minutes was spent in the provision of bedside critical care and coordination .
[2016-09-19] MEDS: D5W/0.45% SODIUM CHLORIDE 1,000 ML IV SCH (20:01)
[2016-09-19] MEDS: GENTAMICIN 80 MG in APPROPRIATE DILUENT 1 EA IV SCH (20:02)
[2016-09-19] MEDS ORDERED: KETOROLAC 30 MG/ML VIAL (J1885) IV PRN (20:15)
--- NOTE | 2016-09-19 20:49 | PHACANCOPD ---
PHARMACY VANCOMYCIN DOSING Pt Demographics Demographics Patient Age:81 , Weight:77.100 , Gender: male Adjusted Body Weight Date: 09/19/16, Adjusted Body Weight: [77.1] Kg Vancomycin Vancomycin Target Ranges: 15-20 mcg/ml Vancomycin Load Y/N: Yes Load Dose Date Time Vancomycin Load Dose: 1.5G Date: 09/19/16 Time: 21:00 Vancomycin Dose Date: 09/19/16. Current Vancomycin Dose: [1G IV Q24H] Intermittent Dosing?: No Labs Labs Item Value Date Time White Blood Count 19.0 K/mm3 H 09/19/16 171 Creatinine 2.65 MG/DL H 09/19/161714 Creatinine Clearance Date:09/19/16. Creatinine Clearance: [21.1ML/MIN]. Assessment and Plan Maintaining Current Dose?: Yes Reason for dose change: No Dose Change Pharmacist Note Pharmacist Note Date: 09/19/16. Pharmacist note: PT is an 81 year old male being treated with vancomycin and has a history of vancomycin therapy at [facility]. Scr is slightly elevated, historical levels closer to 1.5. A loading dose of 1.5g was gave @21. Maintenance will consist of 1g iv q24h starting 09/20 @21. We will continue to monitor and adjust dose as needed. MADONNA MELO PHARMACY Sep 19, 2016 20:49
[2016-09-19] MEDS: PANTOPRAZOLE 40MG INJ (PROTONIX) (C9113) IV SCH (21:20)
[2016-09-19] MEDS: VANCOMYCIN HCL 1,000 MG, VIAL MATE ADAPTER 1 EACH in D5W 250 ML IV SCH (21:20)
[2016-09-19] MEDS ORDERED: VANCOMYCIN HCL 500 MG in D5W MINI-BAG PLUS 100 ML IV ONE (22:00)
[2016-09-20] VITALS (10 sets, daily range): BP systolic 101–144; BP diastolic 56–76
[2016-09-20] MEDS ORDERED: KETOROLAC 30 MG/ML VIAL (J1885) IV SCH
[2016-09-20] MEDS: HumaLOG INSULIN (NovoLOG) PER UNIT SC SCH ×5 (00:30→23:41)
[2016-09-20 05:27] LABS: EOS % 0.3 % (0.0-3.0); LARGE UNSTAINED CELL # 0.2 K/mm3 (0.0-0.4); LARGE UNSTAINED CELL % 1.1 % (0.0-4.0); LYMPH # 0.7 K/mm3 (1.5-4.5); LYMPH % 4.1 % (24.0-44.0); MEAN CORPUSCULAR HEMOGLOBIN 26.1 pg (27.0-33.0); MEAN CORPUSCULAR HGB CONC 30.2 g/dl (32.0-36.5); MEAN CORPUSCULAR VOLUME 86.4 fl (80.0-96.0); MONO # 0.7 K/mm3 (0.0-0.8); MONO % 4.7 % (0.0-5.0); NEUTROPHILS # 12.6 K/mm3 (1.8-7.7); NEUTROPHILS % 89.7 % (36.0-66.0); PLATELET COUNT, AUTOMATED 202 k/mm3 (150-450); RED CELL DISTRIBUTION WIDTH 13.8 % (11.5-14.5); WHITE BLOOD COUNT 14.1 K/mm3 (4.0-10.0)
[2016-09-20 05:52] LABS: ALBUMIN 2.2 GM/DL (3.2-5.2); ALBUMIN/GLOBULIN RATIO 0.58 (1.00-1.93); BILIRUBIN,TOTAL 0.2 MG/DL (0.2-1.0); CALCIUM LEVEL 7.7 MG/DL (8.8-10.2); CREATININE FOR GFR 2.52 MG/DL (0.70-1.30); GLOMERULAR FILTRATION RATE 26.1 (>35); PHOSPHORUS LEVEL 3.3 MG/DL (2.5-4.9); POTASSIUM SERUM 4.9 MEQ/L (3.5-5.1)
[2016-09-20] MEDS: D5W/0.45% SODIUM CHLORIDE 1,000 ML IV SCH ×2 (08:20→17:50)
[2016-09-20] MEDS: GENTAMICIN 80 MG in APPROPRIATE DILUENT 1 EA IV SCH (08:21)
--- NOTE | 2016-09-20 08:30 | REP ---
AP PORTABLE ABDOMEN: 09/19/2016. Comparison: CT A/P 08/02/2016, abdominal series 06/26/2016. Clinical history: Check stent placement. Bladder carcinoma. Findings: There is abundant stool in the upper abdomen. Wire sutures in the right upper quadrant and multiple skin berenice now periumbilical and left upper quadrant. There is a right nephrostomy tube coiled in the renal pelvis unchanged. Right and left internal ureteral stents overlying the renal pelvis on each side and with both stents exiting through a urostomy to drain overlying the lower pelvis through a urostomy overlying the right iliac region. There is a drain overlying the lower central pelvis. There are degenerative changes in this spine and SI joints left greater than right. Hip osteoarthritic change also noted over the right iliac crest. Signed by Miah Wiseman MD 09/20/2016 03:25 P
--- NOTE | 2016-09-20 09:01 | RO ---
DATE OF PROCEDURE: 09/19/2016 PREOPERATIVE DIAGNOSIS: Bladder cancer. POSTOPERATIVE DIAGNOSIS: Bladder cancer. PROCEDURE: Robotic assisted radical cystectomy, plus prostatectomy, plus bilateral extended pelvic lymph node dissections, plus intracorporeal ileal conduit urinary diversion. SURGEON: Darryl Lee MD DIRECTOR ALUMNI RELATIONS: Jose Cameron, PGY3 [employer]: Silvia Hermosillo NP ANESTHESIA: General. FINDINGS: 4 cm right lymphadenopathy solid hard and bladder cancer. ESTIMATED BLOOD LOSS (EBL): 200 mL. COMPLICATIONS: None. HISTORY OF PRESENT ILLNESS: This is an 81-year-old male patient who has muscle invasive bladder cancer and has a right hydronephrosis caused by obstruction of the distal ureter by the bladder cancer. He has a right nephrostomy tube. The patient got consented for robotic assisted radical cystectomy, plus bilateral extended pelvic lymph node dissections, plus intracorporeal urinary diversion ileal conduit type, plus possible right nephrectomy. DESCRIPTION OF PROCEDURE: We prepped and draped the abdomen and pelvis of the patient after induction of general anesthesia. The patient was in supine modified low lithotomy position with a nasogastric (NG) tube draining gastric contents and a Freedman catheter 16-Faroese with a 10 mL balloon draining the bladder. We then started doing an incision 4 cm above the umbilicus in the midline for about 2 cm in length vertically. Through this incision, we opened the abdomen and introduced a 12 mm balloon trocar, inflated the balloon to 40 mL and through this trocar we insufflated the abdomen at a maximum pressure of 15 in high flow with CO2 creating pneumoperitoneum. With a handheld robotic camera at 0 degrees, which assisted to actually place the other trocars in fan shaped manner, two metallic robotic trocars 8 mm in diameter on the right side by each other by 10 cm, and one VersaStep 6 cm away from the midline and 2 cm above from the optic port, on the left side a 12 mm VersaStep for certified medical assistant port 6 cm away from this one in a fan shaped manner an 8 mm metallic trocar and 6 cm away from this one a 15 mm trocar for the EndoCatch device and for the TOMMIE staplers. We then proceeded to dock the robot after placing the patient in steep Trendelenburg position. On the left arm, we used monopolar scissors. On the right arm, we used bipolar PK and a Progress. We then proceeded to actually dissect the right ureter by opening the peritoneal covering on top of the right ureter. We did a formal ureterolysis up to the entrance of the bladder. At the moment in time, we Hem-o-michael times two. The proximal Hem-o-michael was tied to a Vicryl stitch undyed and then cut in the middle. We sent a distal end of ureter to frozen section. The frozen section was negative. For this reason, we decided not to do a nephrectomy because there was enough length for reimplanting the ureter into the ileoconduit. We then proceeded to actually dissect the line of the cul-de-sac and the peritoneum border of the cul-de-sac, opening it and dissecting posteriorly behind the seminal vesicles and opening the denonvilliers' fascia. We dissected the rectum away from the prostatic from base to apex. We could evidence the pedicle on the right side, which is very thick. On the left side, it was very soft and thin. We then proceeded to dissect the left ureter by doing a standard ureterolysis from above the iliac vessels to the entrance of the bladder. We Hem-o-michael times two. Also, the proximal Hem-o-michael was tied to a Vicryl dyed. We then cut in the middle. We then proceeded to actively dissect lateral to the medial ligaments and entered the Retzius space ligating the umbilical ligaments bilaterally with Hem-o-michael. The bladder was attached to urachus and we then proceeded to actively dissect the Retzius space laterally up to the level of the endopelvic fascias. We opened both endopelvic fascias on both sides and then decided to actively introduce a TOMMIE stapler 45 mm in length a 2.5 mm stapler to secure the left pedicle and the right pedicle times three on each side. Once the pedicles were secured, we could mobilize the prostate up to the apex. We then proceeded to cut the urachus and drop the bladder. Once we performed this, we cut the four prostatic ligaments with monopolar scissors and secured the dorsal vein complex with stitches in a CT1 needle of #0 Vicryl times two. We cut the dorsal vein complex. We cut the urethra and placed the prostate and bladder into a 15 mm Endo Catch bag. We then proceeded to secure hemostasis. There were no bleeding vessels at all. At the moment in time, we started to do our extended pelvic lymphadenectomy. We started on the left side. We dissected the common iliac artery, lymph nodes and opened the lymph nodes on top of the external iliac artery also. We also dissected the external iliac artery and lymph nodes and secured lymphostasis with Hem-o-michael and bipolar PK. We also dissected the obturator lymph nodes and also the hypogastric lymph nodes. Our limits of dissection on the left and the right side were the lacunar ligament inferiorly, medially the sacrum, proximally bifurcation of the aorta, lateral the genitofemoral nerve and posteriorly the pelvis sidewall. We dissected the common iliac artery lymph nodes and common iliac vein lymph nodes, the presacral lymph nodes, the hypogastric lymph nodes, the obturator lymph nodes and the external iliac vein artery lymph nodes. We performed this technique on the contralateral side also, secure lymphostasis with Hem-o-michael and with bipolar PK. On the right side, we could evidence an obturator lymph node about 4 cm that was dissected with bipolar PK with solid rock about 14 cm that actually dissected very well away from the obturator nerve. Both obturator nerves were intact at the end. There were no bleeding vessels. At that moment in time, we decided to cross the left ureter underneath the sigmoid colon by traction in the sigmoid colon anteriorly and passing a Progress below the sigmoid colon and passing the ureter from left to right. We then proceeded to place and to stretch both ureters with a third arm and speculated the ureters anteriorly for about 2.5 cm. We then closed the two lateral anastomosis with the ureters, urethral site and anastomosis with #4-0 Monocryl in a running fashion to create a [place] technique. We then proceeded to identify our ileocecal valve. It was very difficult to identify ileocecal valve since there was a lot of redundant bowel all the way up in the abdomen. We used a grasper bilaterally in both hands, left and right, to actually run the bowel completed times two. Once we found the ileocecal valve, we actually counted 15 cm away from the ileocecal valve and selected 15 cm of ileum for our ileoconduit. With the graspers grabbing the ileum, we placed the Endo TOMMIE 60 cm in length, 2.5 mm stapler through the 15 mm port and resected the bowel times two harvesting our ileoconduit. With monopolar scissors, we cut the mesentery. There was no bleeding vessels. At that moment and time, we decided to do the ileal ileal ctab-aq-yxai anastomosis by cutting the antimesenteric border in the angle of the staple line and introducing a 60 mm, 2.5 mm Endo TOMMIE stapler and doing a kaqq-hs-ytte anastomosis, and then we extended that hjmo-da-xwjd anastomosis with a 45 mm inside the staple line. We then proceeded to close the opening of the wzep-nw-tsum anastomosis with a 60 mm TOMMIE stapler also and another 45 mm TOMMIE stapler. Once re-anastomosis of ilium was finished, we actually proceeded to actively open the proximal and distal end of the ileoconduit. We performed the ureteroileal anastomosis in a Porras technique. With #4-0 Monocryl, we run the right lateral wall of the right ureter to the back wall on the ileum. We then proceeded to pass stents though the ileoconduit into both ureters. We then proceeded to actively close the anterior wall of the anastomosis with #4-0 Monocryl in a running fashion. We then proceeded to place a single #2-0 silk stitch into the end of the ileoconduit which is going to be created for the urostomy, and then we proceeded to actively take out the 15 mm port and closed if from inside with a V-Loc #2-0 in a running fashion. We then proceeded to undock our right arms and the third arm also, passed a drain through the third arm into the pelvis and we passed a grasper. We then proceeded to actively grab the silk stitch with the grasper through the right trocar at the level of midclavicular line at the level of umbilicus. We extracted the silk and then took out the trocar after undocking the arms. We then proceeded to take out the trocar on the right side where the drain was and suture the drain to the skin with #3-0 nylon. We then proceeded to take all the instruments out and undock the robot. We placed the patient in rotundo position and through the midline after taking the trocar of the optic port we actively took all specimens, bladder and prostate in one bag, left extended pelvic lymph node dissection in another bag and right extended pelvic lymph node dissection in another bag. We then proceeded to actively mature stoma by doing a cruciate incision in the skin and cutting with curved Metzenbaum scissors creating a circular ostomy incision at the level of the skin. We took the fat layers above the aponeurosis of the rectus fascia, the cruciate incision in the rectus fascia and pulled the silk stitch attached to the ileoconduit extracting the ileoconduit and the stents through the opening of the ostomy incision. We then proceeded to do [place] of the ileoconduit with #2-0 Vicryl in four quadrants and single stitches at the level of the skin to mature the stoma. We secured the stents with #3-0 nylon times two. We then placed a urostomy bag. Before doing that, we closed the midline incision after taking all the specimens out with PDS #1 starting at each corner and tying in the middle. We secured and closed the skin with berenice. Skin incisions were covered with 2 x 2's and Tegaderm. PLAN: The patient will pass to recovery, then to the floor. Once he is tolerating a regular diet and ambulating very well and pain is controlled with oral pain medication, he will be [facility] [place] [facility] [place] [facility]. There were no complications during surgery. EDDIE
[2016-09-20] MEDS ORDERED: PREVNAR 13 VACCINE SYRINGE (CPT CODE:90670) IM SCH (09:45)
--- NOTE | 2016-09-20 12:24 | CR.PDOC ---
[facility] Consultation Consultation DATE OF CONSULTATION: 09-20-16 PRIMARY CARE PHYSICIAN: [facility] REFERRING PROVIDER: Dr Mukherjee ATTENDING PHYSICIAN: Dr. Kelley REASON FOR CONSULTATION/CHIEF COMPLAINT: medical management, downgrade from ICU HISTORY OF PRESENT ILLNESS: Pt is a 81 y/o male with past medical history of DM2 , urologic issues , hiatal hernia, GERD, hypertension, CAD and mitral regurgitation. The patient was undergoing extensive urologic robot repair on and became hypoxic. He received 3 L of fluid intraoperatively and sustained a 200 mL blood loss. Hypotension and hypoxemia were noted once the patient was extubated in recovery, he required at that time high flow oxygen rate and intermittent phenylephrine dosing. He was then taken to ICU for further monitoring of his hypoxemia. ALLERGIES: Please see below. HOME MEDICATIONS: Please see below. PAST MEDICAL HISTORY: 1. Extensive urologic issues over the years 2. DM2 3. GERD 4. HTN 5. CAD 6. Mitral regurgitation 7. hiatal hernia PAST SURGICAL HISTORY: 1. Extensive urological history FAMILY HISTORY: unobtainable as patient has intellectual cognitive disability and cannot illicit history Father: Mother: Siblings: Children: Hereditary Diseases: Unexpected deaths due to medical reasons: SOCIAL HISTORY: unobtainable as patient has intellectual cognitive disability and cannot illicit history Marital status and/or living arrangements: Children: Employment: Tobacco use: ETOH: Illicit drug use: IV drug use: Other relevant social factors: REVIEW OF SYSTEMS:unobtainable as patient has intellectual cognitive disability and cannot illicit history CONSTITUTIONAL: HEENT: CARDIOVASCULAR: RESPIRATORY: GASTROINTESTINAL: . SKIN: . NEUROLOGICAL: . PSYCHIATRIC: . ENDOCRINE: . HEMATOLOGIC/LYMPHATIC: . ALLERGIC/IMMUNOLOGIC: . PHYSICAL EXAMINATION: VITAL SIGNS: Please see below. GENERAL APPEARANCE:elderly man sitting upright in bedside chair, degree of cognitive disability makes it hard to understand him, he cannot answer questions coherently, no acute distress HEENT: EOMI, nares patent b/l, neck supple, moist mucus membranes, tongue midline CARDIOVASCULAR: normal s1 and s2, no murmurs, rubs or gallops appreciated RESPIRATORY: diminished throughout all lung smiley, no rhonchi, wheezing or crackles appreciated GENITOURINARY: patient currently has SUMA drain and right nephrostomy ABDOMEN: soft, NABSx4, non distended, no organomegaly, SUMA drain and right nephrostomy, no rebound guarding or rigidity NEUROLOGICAL: no focal deficits PSYCHIATRIC: patient has degree of cognitive disability LABORATORY DATA: Please see below. ASSESSMENT/PLAN: 1. Medically management, pt is on room air saturating at 93%, does not seem to need supplemental oxygen at this time. From a medicine stand point, we will manage his DM2, HTN and GERD and [place] for now, further treatment and recommendations as the patient progresses. Vital Signs/I&O Vital Signs Date Time Temp Pulse Resp B/P Pulse Ox O2 Delivery O2 Flow Rate FiO2 09/20/16 10:00 78 128/76 98 Room Air 09/20/16 08:30 3.0 09/20/16 08:00 99.0 18 09/20/16 06:00 50 I&O- Last 24 Hours up to 6 AM 09/20/16 06:00 Intake Total 7580 ml Output Total 1560 ml Balance 6020 ml Laboratory Data Labs 24H Laboratory Tests 2 09/19/16 16:42: Bedside Glucose (Misc Panel) 347H 09/19/16 17:15: Anion Gap 7L, Blood Urea Nitrogen 23H, Creatinine 2.65H, Sodium Level 135L, Potassium Level 5.3H, Chloride Level 100, Carbon Dioxide Level 28, Calcium Level 8.3L, Glomerular Filtration Rate 24.7L, Magnesium Level 2.2, Phosphorus Level 5.6H 09/19/16 19:18: Arterial Blood pH 7.345L, Arterial Blood Partial Pressure CO2 42.2, Arterial Blood Partial Pressure O2 116.3H, Arterial Blood Total CO2 23.8, Arterial Blood HCO3 22.5, Arterial Blood Base Excess -3.0L, Arterial Blood Oxygen Saturation 98.7, Arterial Blood Gas Puncture Site RT RADIAL, Blood Gas Bicarbonate Standard 22.0 09/20/16 00:13: Bedside Glucose (Misc Panel) 325H 09/20/16 04:46: Blood Urea Nitrogen 27H, Creatinine 2.52H, Sodium Level 134L, Potassium Level 4.9, Chloride Level 100, Carbon Dioxide Level 28, Calcium Level 7.7L, Phosphorus Level 3.3#, Aspartate Amino Transf (AST/SGOT) 13L, Alanine Aminotransferase (ALT/SGPT) 11L, Lactate Dehydrogenase 132, Total Creatine Kinase 85, Alkaline Phosphatase 82, Total Bilirubin 0.2, Triglycerides Level 41 , Cholesterol Level 104, Total Protein 6.0L, Albumin 2.2L, Albumin/Globulin Ratio 0.58L, Anion Gap 6L, White Blood Count 14.1H, Red Blood Count 3.03L, Hemoglobin 7.9L, Hematocrit 26.2L, Mean Corpuscular Volume 86.4, Mean Corpuscular Hemoglobin 26.1L, Mean Corpuscular Hemoglobin Concent 30.2L, Red Cell Distribution Width 13.8, Platelet Count 202, Neutrophils (%) (Auto) 89.7H, Lymphocytes (%) (Auto) 4.1L, Monocytes (%) (Auto) 4.7, Eosinophils (%) (Auto) 0.3, Basophils (%) (Auto) 0.0, Neutrophils # (Auto) 12.6H, Lymphocytes # (Auto) 0.7L, Monocytes # (Auto) 0.7, Eosinophils # (Auto) 0.0, Basophils # (Auto) 0.0, Glomerular Filtration Rate 26.1L, Large Unclassified Cells # 0.2, Large Unclassified Cells % 1.1 09/20/16 05:56: Bedside Glucose (Misc Panel) 262H CBC/BMP Laboratory Tests 09/19/16 17:15 Calcium Level 8.3 L, Red Blood Count 3.75 L, Mean Corpuscular Volume 90.3, Mean Corpuscular Hemoglobin 26.0 L, Mean Corpuscular Hemoglobin Concent 28.8 L, Red Cell Distribution Width 13.9 09/20/16 04:46 Calcium Level 7.7 L, Red Blood Count 3.03 L, Mean Corpuscular Volume 86.4, Mean Corpuscular Hemoglobin 26.1 L, Mean Corpuscular Hemoglobin Concent 30.2 L, Red Cell Distribution Width 13.8, Phosphorus Level 3.3 #, Aspartate Amino Transf ( AST/SGOT) 13 L, Alanine Aminotransferase (ALT/SGPT) 11 L, Lactate Dehydrogenase 132, Total Creatine Kinase 85, Alkaline Phosphatase 82, Total Bilirubin 0.2, Triglycerides Level 41, Cholesterol Level 104, Total Protein 6.0 L, Albumin 2.2 L, Neutrophils (%) (Auto) 89.7 H, Lymphocytes (%) (Auto) 4.1 L, Monocytes (%) ( Auto) 4.7, Eosinophils (%) (Auto) 0.3, Basophils (%) (Auto) 0.0, Neutrophils # ( Auto) 12.6 H, Lymphocytes # (Auto) 0.7 L, Monocytes # (Auto) 0.7, Eosinophils # (Auto) 0.0, Basophils # (Auto) 0.0 Allergies Coded Allergies: Povidone Iodine (Verified Allergy, Intermediate, Hives, 07/24/16) Latex (Verified Adverse Reaction, Intermediate, risk, 09/09/12) Home Medications Scheduled (Amaryl) 2 Mg Tab 2 MG PO QAM (Reported) (Senna Plus 8.6-50 mg) 1 Tab Tab 1 TAB PO BID (Reported) Calcium/Vitamin D (Oscal 500/200 D-3 500-200 mg-Unit) 1 Tab Tab 1 TAB PO BID ( Reported) Carbamide Peroxide (Debrox) 6.5 % [place] 1 DROP AU 2XW (Reported) TUES, SAT AT BEDTIME Chlorhexidine Gluconate (Peridex) 0.12 % Madison 10 ML MT BID (Reported) Docusate Sodium (Colace) 100 Mg Cap 100 MG PO BID (Reported) Lactobacillus Acidophilus (Bacid) 1 Tab Tab #60 1 TAB PO BID Omeprazole (Prilosec) 20 Mg Cap 20 MG PO QAM (Reported) Paroxetine Hydrochloride (Paxil) 30 Mg Tab 60 MG PO QHS (Reported) Polyethylene Glycol (Miralax) 1 Pow Pow 17 GM PO QAM (Reported) Pravastatin Sod (Pravastatin Sodium) 40 Mg Tab 40 MG PO QHS (Reported) Quetiapine Fumarate (Seroquel Xr) 200 Mg Bettina 200 MG PO DAILY (Reported) TAKES @ 1630 Trimethoprim/Sulfamethoxazole (Bactrim Ds 800-160 mg) 1 Tab Tab 1 TAB PO BID ( Reported) Scheduled PRN Bisacodyl (Bisacodyl) 10 Mg Sup 10 MG MS DAILY PRN PRN CONSTIPATION (Reported) ON DAY 4 WITHOUT A BM Milk Of Magnesia (Milk of Magnesia) 1,200 Mg/15 Ml Belen 30 ML PO DAILY PRN PRN CONSTIPATION (Reported) Tramadol HCl (Tramadol Hydrochloride) 50 Mg Tab #40 50 MG PO Q8HP PRN PRN ABDOMINAL PAIN GME ATTESTATION GME ATTESTATION My preceptor for this patient encounter was physically present in the building during the encounter and was fully available. As needed, all aspects of the patient interview, examination, medical decision making process, and medical care plan development were reviewed and approved by the preceptor. Preceptor is aware and concurs with the plan as stated in the body of this note and will attest to such by his/her cosignature. IMAN FRAGOSO DO Sep 20, 2016 12:24
[2016-09-20] MEDS ORDERED: PIPERACILLIN/TAZOBACTAM SOD 3.375 GM in D5W MINI-BAG PLUS 50 ML IV SCH (13:00)
[2016-09-20] MEDS: PIPERACILLIN/TAZOBACTAM SOD 2.25 GM in D5W MINI-BAG PLUS 50 ML IV SCH ×2 (13:45→20:12)
[2016-09-20] MEDS: PANTOPRAZOLE 40MG INJ (PROTONIX) (C9113) IV SCH (20:12)
[2016-09-20] MEDS: VANCOMYCIN HCL 1,000 MG, VIAL MATE ADAPTER 1 EACH in D5W 250 ML IV SCH (21:41)
[2016-09-21] VITALS: BP 127/65
[2016-09-21] MEDS: PIPERACILLIN/TAZOBACTAM SOD 2.25 GM in D5W MINI-BAG PLUS 50 ML IV SCH ×4 (03:14→20:12)
[2016-09-21 04:00] VITALS: BP 103/55
[2016-09-21 05:28] LABS: BASO % 0.2 % (0.0-1.0); EOS % 0.4 % (0.0-3.0); LARGE UNSTAINED CELL # 0.2 K/mm3 (0.0-0.4); LARGE UNSTAINED CELL % 1.3 % (0.0-4.0); LYMPH # 0.7 K/mm3 (1.5-4.5); LYMPH % 4.9 % (24.0-44.0); MEAN CORPUSCULAR HEMOGLOBIN 25.7 pg (27.0-33.0); MEAN CORPUSCULAR HGB CONC 30.6 g/dl (32.0-36.5); MEAN CORPUSCULAR VOLUME 83.9 fl (80.0-96.0); MONO # 0.4 K/mm3 (0.0-0.8); MONO % 3.7 % (0.0-5.0); NEUTROPHILS # 10.8 K/mm3 (1.8-7.7); NEUTROPHILS % 89.6 % (36.0-66.0); PLATELET COUNT, AUTOMATED 187 k/mm3 (150-450); RED CELL DISTRIBUTION WIDTH 13.9 % (11.5-14.5)
[2016-09-21 05:44] LABS: ALBUMIN 2.3 GM/DL (3.2-5.2); ALBUMIN/GLOBULIN RATIO 0.61 (1.00-1.93); BILIRUBIN,TOTAL 0.2 MG/DL (0.2-1.0); CALCIUM LEVEL 7.4 MG/DL (8.8-10.2); CREATININE FOR GFR 2.22 MG/DL (0.70-1.30); GLOMERULAR FILTRATION RATE 30.3 (>35); PHOSPHORUS LEVEL 2.1 MG/DL (2.5-4.9); POTASSIUM SERUM 4.5 MEQ/L (3.5-5.1); TOTAL PROTEIN 6.1 GM/DL (6.4-8.2)
[2016-09-21] MEDS: HumaLOG INSULIN (NovoLOG) PER UNIT SC SCH ×3 (06:20→17:00)
[2016-09-21] MEDS: D5W/0.45% SODIUM CHLORIDE 1,000 ML IV SCH ×2 (06:20→09:44)
[2016-09-21 08:00] VITALS: BP 115/56
--- NOTE | 2016-09-21 08:34 | IPNPDOC ---
Subjective Date Seen The patient was seen on 09/21/16. Subjective Chief Complaint/HPI The patient is a 81-year-old male admitted with a reason for visit of Bladder Neoplasm, Right Hydronephrosis. General: Reports: ROS Unobtainable (patient has degree of cognitive impairment , ROS is unobtainable as pt. does not seem to understand questions or give comprehensible answers), Denies: Chills, Night Sweats Constitutional: Denies: Chills Eyes: Denies: Conjunctivae inflammation, Eyelid inflammation, Redness Cardiovascular: Denies: Chest Pain Objective Physical Examination General Exam: Positive: Alert, Cooperative, No Acute Distress Eye Exam: Positive: Conjunctiva & lids normal, EOMI, Negative: Ptosis, Sclera icteric ENT Exam: Positive: Atraumatic, Mucous membr. moist/pink, Nares Patent, Pharynx Normal, Tongue Midline, Negative: Pharyngeal Edema Neck Exam: Positive: Supple Chest Exam: Positive: Clear to auscultation, Normal air movement, Negative: Rales, Rhonchi, Wheezing Heart Exam: Positive: Normal S1, Normal S2, Rate Normal, Negative: Gallops, Murmurs Abdomen Exam: Positive: Normal bowel sounds, Soft, Negative: BS Hyperactive, BS Hypoactive, Hepatospenomegaly, Tenderness Extremity Exam: Negative: Clubbing, Cyanosis, Edema, Normal pulses Psych Exam: Negative: Mental status NL (degress of cognitive impairment) Assessment /Plan Problems (1) Hypoxemia Status: Acute Response to Treatment: Stable Problem Text: patient is currently on 1 L saturation of 95 % will wean O2 supplemental as tolerated (2) DM2 (diabetes mellitus, type 2) Status: Chronic Response to Treatment: Stable Problem Text: sliding scale insulin coverage (3) Hydronephrosis Status: Acute Response to Treatment: Stable Problem Text: stable urology following the patient, appreciate their recommendations s/p urological procedure (4) DVT prophylaxis Status: Acute Response to Treatment: Stable Problem Text: SCDS TEDS Plan/VTE VTE Prophylaxis Ordered?: Yes VS, I&O, 24H, Fishbone Vital Signs/I&O Vital Signs Date Time Temp Pulse Resp B/P Pulse Ox O2 Delivery O2 Flow Rate FiO2 09/21/16 04:00 99.0 79 16 103/55 95 Nasal Cannula 1.0 09/20/16 06:00 50 I&O- Last 24 Hours up to 6 AM 09/21/16 05:59 Intake Total 2540 ml Output Total 1395 ml Balance 1145 ml Laboratory Data 24H LABS Laboratory Tests 2 09/20/16 12:02: Bedside Glucose (Misc Panel) 151H 09/20/16 17:54: Bedside Glucose (Misc Panel) 271H 09/20/16 19:11: Gentamicin Level Trough 2.3*H 09/20/16 23:35: Bedside Glucose (Misc Panel) 244H 09/21/16 05:03: Blood Urea Nitrogen 28H, Creatinine 2.22H, Sodium Level 133L, Potassium Level 4.5, Chloride Level 100, Carbon Dioxide Level 26, Calcium Level 7.4L, Phosphorus Level 2.1#L, Aspartate Amino Transf (AST/SGOT) 13L, Alanine Aminotransferase (ALT/SGPT) 10L, Lactate Dehydrogenase 155, Total Creatine Kinase 59, Alkaline Phosphatase 80, Total Bilirubin 0.2, Triglycerides Level 83 , Cholesterol Level 110, Total Protein 6.1L, Albumin 2.3L, Albumin/Globulin Ratio 0.61L, Anion Gap 7L, White Blood Count 12.0H, Red Blood Count 3.36L, Hemoglobin 8.6L, Hematocrit 28.2L, Mean Corpuscular Volume 83.9, Mean Corpuscular Hemoglobin 25.7L, Mean Corpuscular Hemoglobin Concent 30.6L, Red Cell Distribution Width 13.9, Platelet Count 187, Neutrophils (%) (Auto) 89.6H, Lymphocytes (%) (Auto) 4.9L, Monocytes (%) (Auto) 3.7, Eosinophils (%) (Auto) 0.4, Basophils (%) (Auto) 0.2, Neutrophils # (Auto) 10.8H, Lymphocytes # (Auto) 0.7L, Monocytes # (Auto) 0.4, Eosinophils # (Auto) 0.0, Basophils # (Auto) 0.0, Glomerular Filtration Rate 30.3L, Large Unclassified Cells # 0.2, Large Unclassified Cells % 1.3 09/21/16 06:01: Bedside Glucose (Misc Panel) 303H CBC/BMP Laboratory Tests 09/20/16 12:54 09/21/16 05:03 Calcium Level 7.4 L, Phosphorus Level 2.1 #L, Aspartate Amino Transf (AST/SGOT) 13 L, Alanine Aminotransferase (ALT/SGPT) 10 L, Lactate Dehydrogenase 155, Total Creatine Kinase 59, Alkaline Phosphatase 80, Total Bilirubin 0.2, Triglycerides Level 83, Cholesterol Level 110, Total Protein 6.1 L, Albumin 2.3 L, Red Blood Count 3.36 L, Mean Corpuscular Volume 83.9, Mean Corpuscular Hemoglobin 25.7 L, Mean Corpuscular Hemoglobin Concent 30.6 L, Red Cell Distribution Width 13.9, Neutrophils (%) (Auto) 89.6 H, Lymphocytes (%) (Auto) 4.9 L, Monocytes (%) (Auto) 3.7, Eosinophils (%) (Auto) 0.4, Basophils (%) (Auto ) 0.2, Neutrophils # (Auto) 10.8 H, Lymphocytes # (Auto) 0.7 L, Monocytes # ( Auto) 0.4, Eosinophils # (Auto) 0.0, Basophils # (Auto) 0.0 GME ATTESTATION GME ATTESTATION My preceptor for this patient encounter was physically present in the building during the encounter and was fully available. As needed, all aspects of the patient interview, examination, medical decision making process, and medical care plan development were reviewed and approved by the preceptor. Preceptor is aware and concurs with the plan as stated in the body of this note and will attest to such by his/her cosignature. IMAN FRAGOSO DO Sep 21, 2016 08:34
[2016-09-21] MEDS ORDERED: PREVNAR 13 VACCINE SYRINGE (CPT CODE:90670) IM ONE (09:00)
[2016-09-21] MEDS ORDERED: SODIUM PHOSPHATE INJ 30 MMOL in D5W 500 ML IV ONE (09:00)
[2016-09-21 12:00] VITALS: BP 120/67
[2016-09-21] MEDS ORDERED: NS 1,000 ML IV SCH (17:00)
[2016-09-21] MEDS: PANTOPRAZOLE 40MG INJ (PROTONIX) (C9113) IV SCH (20:12)
[2016-09-21 22:00] VITALS: BP 136/68
[2016-09-21] MEDS: VANCOMYCIN HCL 1,000 MG, VIAL MATE ADAPTER 1 EACH in D5W 250 ML IV SCH (22:06)
[2016-09-22] MEDS: HumaLOG INSULIN (NovoLOG) PER UNIT SC SCH ×4 (00:08→18:21)
[2016-09-22] MEDS: PIPERACILLIN/TAZOBACTAM SOD 2.25 GM in D5W MINI-BAG PLUS 50 ML IV SCH ×2 (01:23→08:44)
[2016-09-22 07:12] LABS: BASO % 0.2 % (0.0-1.0); EOS % 0.4 % (0.0-3.0); LARGE UNSTAINED CELL # 0.2 K/mm3 (0.0-0.4); LARGE UNSTAINED CELL % 1.6 % (0.0-4.0); LYMPH # 0.7 K/mm3 (1.5-4.5); LYMPH % 4.6 % (24.0-44.0); MEAN CORPUSCULAR HGB CONC 30.9 g/dl (32.0-36.5); MEAN CORPUSCULAR VOLUME 84.3 fl (80.0-96.0); MONO # 0.7 K/mm3 (0.0-0.8); MONO % 5.5 % (0.0-5.0); NEUTROPHILS # 10.4 K/mm3 (1.8-7.7); NEUTROPHILS % 87.7 % (36.0-66.0); PLATELET COUNT, AUTOMATED 212 k/mm3 (150-450); RED CELL DISTRIBUTION WIDTH 14.1 % (11.5-14.5); WHITE BLOOD COUNT 11.8 K/mm3 (4.0-10.0)
[2016-09-22 07:27] LABS: ALBUMIN 2.2 GM/DL (3.2-5.2); ALBUMIN/GLOBULIN RATIO 0.59 (1.00-1.93); BILIRUBIN,TOTAL 0.4 MG/DL (0.2-1.0); CALCIUM LEVEL 7.6 MG/DL (8.8-10.2); CREATININE FOR GFR 1.84 MG/DL (0.70-1.30); GLOMERULAR FILTRATION RATE 37.6 (>35); PHOSPHORUS LEVEL 2.6 MG/DL (2.5-4.9); POTASSIUM SERUM 4.4 MEQ/L (3.5-5.1); TOTAL PROTEIN 5.9 GM/DL (6.4-8.2)
--- NOTE | 2016-09-22 09:06 | IPNPDOC ---
Subjective Date Seen The patient was seen on 09/22/16. Subjective Chief Complaint/HPI The patient is a 81-year-old male admitted with a reason for visit of Bladder Neoplasm, Right Hydronephrosis. General: Reports: ROS Unobtainable (base line cognitive impairment) Pulmonary: Denies: Cough, Dyspnea Cardiovascular: Denies: Chest Pain, Palpitations Objective Physical Examination General Exam: Positive: Alert, Cooperative, No Acute Distress Eye Exam: Positive: Conjunctiva & lids normal, EOMI, Negative: Ptosis, Sclera icteric ENT Exam: Positive: Atraumatic, Mucous membr. moist/pink, Nares Patent, Pharynx Normal, Tongue Midline, Negative: Pharyngeal Edema Neck Exam: Positive: Supple Chest Exam: Positive: Clear to auscultation, Normal air movement, Negative: Rales, Rhonchi, Wheezing Heart Exam: Positive: Normal S1, Normal S2, Rate Normal, Negative: Gallops, Murmurs Abdomen Exam: Positive: Normal bowel sounds, Soft, Negative: BS Hyperactive, BS Hypoactive, Hepatospenomegaly, Tenderness Extremity Exam: Negative: Clubbing, Cyanosis, Edema, Normal pulses Psych Exam: Negative: Mental status NL (degress of cognitive impairment) Assessment /Plan Problems (1) Hypoxemia Status: Acute Response to Treatment: Stable Problem Text: patient is currently on 1 L saturation of 95 % will wean O2 supplemental as tolerated (2) DM2 (diabetes mellitus, type 2) Status: Chronic Response to Treatment: Stable Problem Text: sliding scale insulin coverage (3) Hydronephrosis Status: Acute Response to Treatment: Stable Problem Text: stable urology following the patient, appreciate their recommendations s/p urological procedure (4) DVT prophylaxis Status: Acute Response to Treatment: Stable Problem Text: SCDS TEDS Plan/VTE VTE Prophylaxis Ordered?: Yes VS, I&O, 24H, Fishbone Vital Signs/I&O Vital Signs Date Time Temp Pulse Resp B/P Pulse Ox O2 Delivery O2 Flow Rate FiO2 09/21/16 22:21 Room Air 09/21/16 22:00 96.3 91 16 136/68 94 09/21/16 08:00 1.0 09/20/16 06:00 50 I&O- Last 24 Hours up to 6 AM 09/22/16 06:00 Intake Total 1430 ml Output Total 1585 ml Balance -155 ml Laboratory Data 24H LABS Laboratory Tests 2 4/13/17 11:41: Bedside Glucose (Misc Panel) 286H 09/21/16 16:55: Bedside Glucose (Misc Panel) 254H 09/21/16 23:57: Bedside Glucose (Misc Panel) 207H 09/22/16 06:00: Bedside Glucose (Misc Panel) 235H 09/22/16 06:15: Blood Urea Nitrogen 22H, Creatinine 1.84H, Sodium Level 135L, Potassium Level 4.4, Chloride Level 100, Carbon Dioxide Level 25, Calcium Level 7.6L, Phosphorus Level 2.6#, Aspartate Amino Transf (AST/SGOT) 14L, Alanine Aminotransferase (ALT/SGPT) 13, Lactate Dehydrogenase 195, Total Creatine Kinase 60, Alkaline Phosphatase 85, Total Bilirubin 0.4#, Triglycerides Level 81 , Cholesterol Level 119, Total Protein 5.9L, Albumin 2.2L, Albumin/Globulin Ratio 0.59L, Anion Gap 10, White Blood Count 11.8H, Red Blood Count 3.46L, Hemoglobin 9.0L, Hematocrit 29.2L, Mean Corpuscular Volume 84.3, Mean Corpuscular Hemoglobin 26.0L, Mean Corpuscular Hemoglobin Concent 30.9L, Red Cell Distribution Width 14.1, Platelet Count 212, Neutrophils (%) (Auto) 87.7H, Lymphocytes (%) (Auto) 4.6L, Monocytes (%) (Auto) 5.5H, Eosinophils (%) (Auto) 0.4, Basophils (%) (Auto) 0.2, Neutrophils # (Auto) 10.4H, Lymphocytes # (Auto) 0.7L, Monocytes # (Auto) 0.7, Eosinophils # (Auto) 0.0, Basophils # (Auto) 0.0, Glomerular Filtration Rate 37.6, Large Unclassified Cells # 0.2, Large Unclassified Cells % 1.6 CBC/BMP Laboratory Tests 09/22/16 06:15 Calcium Level 7.6 L, Phosphorus Level 2.6 #, Aspartate Amino Transf (AST/SGOT) 14 L, Alanine Aminotransferase (ALT/SGPT) 13, Lactate Dehydrogenase 195, Total Creatine Kinase 60, Alkaline Phosphatase 85, Total Bilirubin 0.4 #, Triglycerides Level 81, Cholesterol Level 119, Total Protein 5.9 L, Albumin 2.2 L, Red Blood Count 3.46 L, Mean Corpuscular Volume 84.3, Mean Corpuscular Hemoglobin 26.0 L, Mean Corpuscular Hemoglobin Concent 30.9 L, Red Cell Distribution Width 14.1, Neutrophils (%) (Auto) 87.7 H, Lymphocytes (%) (Auto) 4.6 L, Monocytes (%) (Auto) 5.5 H, Eosinophils (%) (Auto) 0.4, Basophils (%) ( Auto) 0.2, Neutrophils # (Auto) 10.4 H, Lymphocytes # (Auto) 0.7 L, Monocytes # (Auto) 0.7, Eosinophils # (Auto) 0.0, Basophils # (Auto) 0.0 GME ATTESTATION E ATTESTATION My preceptor for this patient encounter was physically present in the building during the encounter and was fully available. As needed, all aspects of the patient interview, examination, medical decision making process, and medical care plan development were reviewed and approved by the preceptor. Preceptor is aware and concurs with the plan as stated in the body of this note and will attest to such by his/her cosignature. IMAN FRAGOSO DO Sep 22, 2016 09:06
[2016-09-22 11:06] LABS: SOURCE, BODY FLUID CREATININE OTHER
[2016-09-22] MEDS ORDERED: MIRALAX *UNIT DOSE* 17GM PACKET PO PRN (13:45)
[2016-09-22 14:00] VITALS: BP 126/67
[2016-09-22] MEDS: OMEPRAZOLE 20 MG CAP PO SCH (14:39)
[2016-09-22] MEDS: LACTOBACILLUS ACIDOPHILUS CAP (BACID) PO SCH ×2 (14:39→20:35)
[2016-09-22] MEDS: DOCUSATE SODIUM 100 MG CAP PO SCH ×2 (14:39→20:34)
[2016-09-22] MEDS: SENNA 8.6 MG TAB (SENOKOT) PO SCH ×2 (14:43→20:36)
[2016-09-22] MEDS: PRAVASTATIN 20 MG TAB PO SCH (20:34)
[2016-09-22] MEDS: PARoxetine 20 MG TAB PO SCH (20:35)
[2016-09-22] MEDS: BACTRIM 160MG/800MG DS TAB PO SCH (20:36)
[2016-09-22 22:00] VITALS: BP 150/80
[2016-09-23] MEDS: HumaLOG INSULIN (NovoLOG) PER UNIT SC SCH ×4 (00:24→17:09)
[2016-09-23 06:00] VITALS: BP 127/78
[2016-09-23 06:41] LABS: BASO % 0.2 % (0.0-1.0); EOS # 0.1 K/mm3 (0.0-0.50); EOS % 0.6 % (0.0-3.0); LARGE UNSTAINED CELL # 0.2 K/mm3 (0.0-0.4); LARGE UNSTAINED CELL % 2.4 % (0.0-4.0); LYMPH # 0.8 K/mm3 (1.5-4.5); LYMPH % 5.8 % (24.0-44.0); MEAN CORPUSCULAR HEMOGLOBIN 25.9 pg (27.0-33.0); MEAN CORPUSCULAR HGB CONC 30.9 g/dl (32.0-36.5); MEAN CORPUSCULAR VOLUME 83.9 fl (80.0-96.0); MONO # 0.6 K/mm3 (0.0-0.8); MONO % 6.5 % (0.0-5.0); NEUTROPHILS # 7.7 K/mm3 (1.8-7.7); NEUTROPHILS % 84.4 % (36.0-66.0); PLATELET COUNT, AUTOMATED 222 k/mm3 (150-450); RED CELL DISTRIBUTION WIDTH 14.3 % (11.5-14.5); WHITE BLOOD COUNT 9.1 K/mm3 (4.0-10.0)
[2016-09-23 06:58] LABS: ALBUMIN/GLOBULIN RATIO 0.54 (1.00-1.93); BILIRUBIN,TOTAL 0.4 MG/DL (0.2-1.0); CALCIUM LEVEL 7.8 MG/DL (8.8-10.2); CREATININE FOR GFR 1.52 MG/DL (0.70-1.30); GLOMERULAR FILTRATION RATE 46.9 (>35); MAGNESIUM LEVEL 2.1 MG/DL (1.8-2.4); PHOSPHORUS LEVEL 2.2 MG/DL (2.5-4.9); TOTAL PROTEIN 5.7 GM/DL (6.4-8.2)
[2016-09-23] MEDS ORDERED: SODIUM PHOSPHATE INJ 20 MMOL in D5W 250 ML IV ONE (09:00)
--- NOTE | 2016-09-23 09:05 | IPNPDOC ---
Subjective Date Seen The patient was seen on 09/23/16. Subjective Chief Complaint/HPI The patient is a 81-year-old male admitted with a reason for visit of Bladder Neoplasm, Right Hydronephrosis. General: Reports: ROS Unobtainable (pt has baseline cognitive impairment, does not fully comprehend questions that are asked) Pulmonary: Denies: Cough, Dyspnea Cardiovascular: Denies: Chest Pain, Palpitations Objective Physical Examination General Exam: Positive: Alert, Cooperative, No Acute Distress Eye Exam: Positive: Conjunctiva & lids normal, EOMI, Negative: Ptosis, Sclera icteric ENT Exam: Positive: Atraumatic, Mucous membr. moist/pink, Nares Patent, Pharynx Normal, Tongue Midline, Negative: Pharyngeal Edema Neck Exam: Positive: Supple Chest Exam: Positive: Clear to auscultation, Normal air movement, Negative: Rales, Rhonchi, Wheezing Heart Exam: Positive: Normal S1, Normal S2, Rate Normal, Negative: Gallops, Murmurs Abdomen Exam: Positive: Normal bowel sounds, Soft, Negative: BS Hyperactive, BS Hypoactive, Hepatospenomegaly, Tenderness Extremity Exam: Negative: Clubbing, Cyanosis, Edema, Normal pulses Psych Exam: Negative: Mental status NL (unchanged, degree of cognitive impairment evident) Assessment /Plan Problems (1) Hypoxemia Status: Acute Response to Treatment: Stable Problem Text: 95% on room air patient is currently has 1 L O2 ordered, seems to be stable w/o O2 continue to wean O2 supplemental as tolerated (2) DM2 (diabetes mellitus, type 2) Status: Chronic Response to Treatment: Stable Problem Text: sliding scale insulin coverage (3) Hydronephrosis Status: Acute Response to Treatment: Stable Problem Text: stable D5W continued urology following the patient, appreciate their recommendations-pt is on regular diet now s/p urological procedure (4) DVT prophylaxis Status: Acute Response to Treatment: Stable Problem Text: SCDS TEDS Plan/VTE VTE Prophylaxis Ordered?: Yes VS, I&O, 24H, Fishbone Vital Signs/I&O Vital Signs Date Time Temp Pulse Resp B/P Pulse Ox O2 Delivery O2 Flow Rate FiO2 09/23/16 06:00 98.8 82 18 127/78 95 Room Air 09/21/16 08:00 1.0 09/20/16 06:00 50 I&O- Last 24 Hours up to 6 AM 09/23/16 06:00 Intake Total 480 ml Output Total 325 ml Balance 155 ml Laboratory Data 24H LABS Laboratory Tests 2 09/22/16 10:21: Body Fluid Creatinine 1.7, Body Fluid Source OTHER 09/22/16 11:12: Bedside Glucose (Misc Panel) 198H 09/22/16 17:26: Bedside Glucose (Misc Panel) 222H 09/23/16 00:06: Bedside Glucose (Misc Panel) 223H 09/23/16 05:54: Bedside Glucose (Misc Panel) 222H 09/23/16 06:22: Blood Urea Nitrogen 25H, Creatinine 1.52H, Sodium Level 140, Potassium Level 4.0 , Chloride Level 108H, Carbon Dioxide Level 23, Calcium Level 7.8L, Phosphorus Level 2.2L, Aspartate Amino Transf (AST/SGOT) 13L, Alanine Aminotransferase (ALT /SGPT) 10L, Lactate Dehydrogenase 125, Total Creatine Kinase 30L, Alkaline Phosphatase 70, Total Bilirubin 0.4, Triglycerides Level 83, Cholesterol Level 103, Total Protein 5.7L, Albumin 2.0L, Albumin/Globulin Ratio 0.54L, Anion Gap 9 , White Blood Count 9.1, Red Blood Count 3.26L, Hemoglobin 8.4L, Hematocrit 27.3L, Mean Corpuscular Volume 83.9, Mean Corpuscular Hemoglobin 25.9L, Mean Corpuscular Hemoglobin Concent 30.9L, Red Cell Distribution Width 14.3, Platelet Count 222, Neutrophils (%) (Auto) 84.4H, Lymphocytes (%) (Auto) 5.8L, Monocytes (%) (Auto) 6.5H, Eosinophils (%) (Auto) 0.6, Basophils (%) (Auto) 0.2 , Neutrophils # (Auto) 7.7, Lymphocytes # (Auto) 0.8L, Monocytes # (Auto) 0.6, Eosinophils # (Auto) 0.1, Basophils # (Auto) 0.0, Glomerular Filtration Rate 46.9, Large Unclassified Cells # 0.2, Large Unclassified Cells % 2.4, Magnesium Level 2.1 CBC/BMP Laboratory Tests 09/23/16 06:22 Calcium Level 7.8 L, Phosphorus Level 2.2 L, Aspartate Amino Transf (AST/SGOT) 13 L, Alanine Aminotransferase (ALT/SGPT) 10 L, Lactate Dehydrogenase 125, Total Creatine Kinase 30 L, Alkaline Phosphatase 70, Total Bilirubin 0.4, Triglycerides Level 83, Cholesterol Level 103, Total Protein 5.7 L, Albumin 2.0 L, Red Blood Count 3.26 L, Mean Corpuscular Volume 83.9, Mean Corpuscular Hemoglobin 25.9 L, Mean Corpuscular Hemoglobin Concent 30.9 L, Red Cell Distribution Width 14.3, Neutrophils (%) (Auto) 84.4 H, Lymphocytes (%) (Auto) 5.8 L, Monocytes (%) (Auto) 6.5 H, Eosinophils (%) (Auto) 0.6, Basophils (%) ( Auto) 0.2, Neutrophils # (Auto) 7.7, Lymphocytes # (Auto) 0.8 L, Monocytes # ( Auto) 0.6, Eosinophils # (Auto) 0.1, Basophils # (Auto) 0.0 GME ATTESTATION GME ATTESTATION My preceptor for this patient encounter was physically present in the building during the encounter and was fully available. As needed, all aspects of the patient interview, examination, medical decision making process, and medical care plan development were reviewed and approved by the preceptor. Preceptor is aware and concurs with the plan as stated in the body of this note and will attest to such by his/her cosignature. IMAN FRAGOSO DO Sep 23, 2016 09:05
[2016-09-23] MEDS: LACTOBACILLUS ACIDOPHILUS CAP (BACID) PO SCH ×2 (09:36→20:38)
[2016-09-23] MEDS: SENNA 8.6 MG TAB (SENOKOT) PO SCH ×2 (09:36→20:37)
[2016-09-23] MEDS: OMEPRAZOLE 20 MG CAP PO SCH (09:37)
[2016-09-23] MEDS: BACTRIM 160MG/800MG DS TAB PO SCH ×2 (09:37→20:37)
[2016-09-23] MEDS: DOCUSATE SODIUM 100 MG CAP PO SCH ×2 (09:37→20:38)
[2016-09-23 14:00] VITALS: BP 134/71
--- NOTE | 2016-09-23 15:59 | IPNPDOC ---
Assessment/Plan Date Seen The patient was seen on 09/23/16. 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 He is recovering well. pcns out and drain out. eating but no bowel movement yet. creatine improving h&h stable. d/c plans for sunday. Problems (1) Hypoxemia Status: Resolved (2) DM2 (diabetes mellitus, type 2) Status: Chronic (3) Hydronephrosis Status: Acute (4) DVT prophylaxis Status: Acute Plan/VTE VTE Prophylaxis Ordered?: Yes Plan Diagnostics: Repeat Labs in AM (cbc, bmp) Subjective Review oF Systems Chief Complaint The patient is a 81-year-old male admitted with a reason for visit of Bladder Neoplasm, Right Hydronephrosis. General: Reports: Normal Appetite, ROS Unobtainable, Denies: Fatigue, Malaise Constitutional: Denies: Chills, Fever, Malaise, Sweats, Weakness Eyes: Denies: Pain, Vision change ENT: Denies: Epistaxis, Head Aches, Sore Throat Skin: Denies: Breakdown, Lesions, Nail Changes, Rash Pulmonary: Denies: Cough, Dyspnea Cardiovascular: Denies Chest Pain, Denies Palpitations Gastrointestinal: Denies: Abdominal Pain, Nausea, Vomiting Genitourinary: Denies: Dysuria, Frequency, Hematuria, Incontinence Hematologic: Denies: Bleeding Excessively, Bruising Endocrine: Denies: Polydipsia, Polyphagia, Polyuria Musculoskeletal: Denies: Back Pain, Neck Pain Neurological: Denies: Change in Speech, Incoordination, Numbness, Weakness Psych: Reports: Mood Normal, Denies: Anxiety, Depression Objective Physical Examination General Exam: : Alert: No Acute Distress Eye Exam: : Conjunctiva & lids normal: EOMI: PERRLANo: Sclera icteric Chest Exam: : Clear to auscultation: Normal air movement Heart Exam: Positive: Normal S1, Normal S2, Rate Normal, Negative: Gallops, Murmurs ABDOMEN EXAM: : BS Hypoactive: Soft Vital Signs/I&O Vital Signs Date Time Temp Pulse Resp B/P Pulse Ox O2 Delivery O2 Flow Rate FiO2 09/23/16 14:00 99.2 81 20 134/71 95 Room Air 09/21/16 08:00 1.0 09/20/16 06:00 50 I&O- Last 24 Hours up to 6 AM 09/23/16 06:00 Intake Total 480 ml Output Total 325 ml Balance 155 ml Laboratory Data Labs 24H Laboratory Tests 2 09/22/16 17:26: Bedside Glucose (Misc Panel) 222H 09/23/16 00:06: Bedside Glucose (Misc Panel) 223H 09/23/16 05:54: Bedside Glucose (Misc Panel) 222H 09/23/16 06:22: Blood Urea Nitrogen 25H, Creatinine 1.52H, Sodium Level 140, Potassium Level 4.0 , Chloride Level 108H, Carbon Dioxide Level 23, Calcium Level 7.8L, Phosphorus Level 2.2L, Aspartate Amino Transf (AST/SGOT) 13L, Alanine Aminotransferase (ALT /SGPT) 10L, Lactate Dehydrogenase 125, Total Creatine Kinase 30L, Alkaline Phosphatase 70, Total Bilirubin 0.4, Triglycerides Level 83, Cholesterol Level 103, Total Protein 5.7L, Albumin 2.0L, Albumin/Globulin Ratio 0.54L, Anion Gap 9 , White Blood Count 9.1, Red Blood Count 3.26L, Hemoglobin 8.4L, Hematocrit 27.3L, Mean Corpuscular Volume 83.9, Mean Corpuscular Hemoglobin 25.9L, Mean Corpuscular Hemoglobin Concent 30.9L, Red Cell Distribution Width 14.3, Platelet Count 222, Neutrophils (%) (Auto) 84.4H, Lymphocytes (%) (Auto) 5.8L, Monocytes (%) (Auto) 6.5H, Eosinophils (%) (Auto) 0.6, Basophils (%) (Auto) 0.2 , Neutrophils # (Auto) 7.7, Lymphocytes # (Auto) 0.8L, Monocytes # (Auto) 0.6, Eosinophils # (Auto) 0.1, Basophils # (Auto) 0.0, Glomerular Filtration Rate 46.9, Large Unclassified Cells # 0.2, Large Unclassified Cells % 2.4, Magnesium Level 2.1 09/23/16 11:33: Bedside Glucose (Misc Panel) 388H CBC/BMP Laboratory Tests 09/23/16 06:22 Calcium Level 7.8 L, Phosphorus Level 2.2 L, Aspartate Amino Transf (AST/SGOT) 13 L, Alanine Aminotransferase (ALT/SGPT) 10 L, Lactate Dehydrogenase 125, Total Creatine Kinase 30 L, Alkaline Phosphatase 70, Total Bilirubin 0.4, Triglycerides Level 83, Cholesterol Level 103, Total Protein 5.7 L, Albumin 2.0 L, Red Blood Count 3.26 L, Mean Corpuscular Volume 83.9, Mean Corpuscular Hemoglobin 25.9 L, Mean Corpuscular Hemoglobin Concent 30.9 L, Red Cell Distribution Width 14.3, Neutrophils (%) (Auto) 84.4 H, Lymphocytes (%) (Auto) 5.8 L, Monocytes (%) (Auto) 6.5 H, Eosinophils (%) (Auto) 0.6, Basophils (%) ( Auto) 0.2, Neutrophils # (Auto) 7.7, Lymphocytes # (Auto) 0.8 L, Monocytes # ( Auto) 0.6, Eosinophils # (Auto) 0.1, Basophils # (Auto) 0.0 09/23/16 12:00 FSBS Laboratory Tests Test 09/22/16 17:26 09/23/16 00:06 09/23/16 05:54 09/23/16 11:33 Range/Units Bedside Glucose (Misc Panel) 222 223 222 388 83-110 MG/DL MICHAEL ESPINOZA MD Sep 23, 2016 15:59
[2016-09-23 16:00] VITALS: BP 138/65
[2016-09-23] MEDS ORDERED: MIRALAX *UNIT DOSE* 17GM PACKET PO STA (17:54)
[2016-09-23] MEDS: PRAVASTATIN 20 MG TAB PO SCH (20:36)
[2016-09-23] MEDS: PARoxetine 20 MG TAB PO SCH (20:37)
[2016-09-23 22:00] VITALS: BP 113/59
[2016-09-24] MEDS: HumaLOG INSULIN (NovoLOG) PER UNIT SC SCH ×4 (01:07→19:02)
[2016-09-24 06:00] VITALS: BP 146/76
[2016-09-24 06:50] LABS: BASO % 0.2 % (0.0-1.0); EOS # 0.1 K/mm3 (0.0-0.50); EOS % 1.1 % (0.0-3.0); LARGE UNSTAINED CELL # 0.2 K/mm3 (0.0-0.4); LARGE UNSTAINED CELL % 3.1 % (0.0-4.0); LYMPH # 0.8 K/mm3 (1.5-4.5); LYMPH % 6.8 % (24.0-44.0); MEAN CORPUSCULAR HGB CONC 31.2 g/dl (32.0-36.5); MEAN CORPUSCULAR VOLUME 83.5 fl (80.0-96.0); MONO # 0.5 K/mm3 (0.0-0.8); MONO % 6.3 % (0.0-5.0); NEUTROPHILS # 6.3 K/mm3 (1.8-7.7); NEUTROPHILS % 82.5 % (36.0-66.0); PLATELET COUNT, AUTOMATED 218 k/mm3 (150-450); RED CELL DISTRIBUTION WIDTH 14.4 % (11.5-14.5); WHITE BLOOD COUNT 7.6 K/mm3 (4.0-10.0)
[2016-09-24 07:03] LABS: ALBUMIN 2.1 GM/DL (3.2-5.2); ALBUMIN/GLOBULIN RATIO 0.58 (1.00-1.93); BILIRUBIN,TOTAL 0.5 MG/DL (0.2-1.0); CALCIUM LEVEL 7.9 MG/DL (8.8-10.2); CREATININE FOR GFR 1.6 MG/DL (0.70-1.30); GLOMERULAR FILTRATION RATE 44.2 (>35); PHOSPHORUS LEVEL 2.3 MG/DL (2.5-4.9); POTASSIUM SERUM 4.4 MEQ/L (3.5-5.1); TOTAL PROTEIN 5.7 GM/DL (6.4-8.2)
[2016-09-24] MEDS ORDERED: SODIUM PHOSPHATE INJ 20 MMOL in D5W 250 ML IV ONE (09:00)
[2016-09-24] MEDS: MIRALAX *UNIT DOSE* 17GM PACKET PO SCH (09:14)
[2016-09-24] MEDS: OMEPRAZOLE 20 MG CAP PO SCH (09:15)
[2016-09-24] MEDS: SENNA 8.6 MG TAB (SENOKOT) PO SCH ×2 (09:15→20:05)
[2016-09-24] MEDS: BACTRIM 160MG/800MG DS TAB PO SCH ×2 (09:15→20:05)
[2016-09-24] MEDS: DOCUSATE SODIUM 100 MG CAP PO SCH ×2 (09:15→20:05)
[2016-09-24] MEDS: LACTOBACILLUS ACIDOPHILUS CAP (BACID) PO SCH ×2 (09:15→20:05)
--- NOTE | 2016-09-24 11:35 | IPNPDOC ---
Assessment/Plan Date Seen The patient was seen on 09/24/16. Patient Summary pt s/p robotic asst lap cystectomy with diversion. pt doing well. eating and tolerating regular diet. no bm yet, but good bs. incisions all clean dry and intact. likely d/c tomorrow. Vital Signs Date Time Temp Pulse Resp B/P Pulse Ox O2 Delivery O2 Flow Rate FiO2 09/24/16 11:05 Room Air 09/24/16 06:00 97.1 75 18 146/76 91 Room Air 09/23/16 22:00 98.7 75 20 113/59 90 Room Air 09/23/16 16:00 99.3 78 18 138/65 95 Room Air 09/23/16 14:00 99.2 81 20 134/71 95 Room Air Intake & Output 09/24/16 06:00 Intake Total 2983 ml Output Total 1400 ml Balance 1583 ml Laboratory Tests 09/23/16 11:33: Bedside Glucose (Misc Panel) 388H 09/23/16 12:00: Hematocrit 27.0L, Hemoglobin 8.2L 09/23/16 16:48: Hematocrit 27.3L, Hemoglobin 8.1L 09/23/16 16:57: Bedside Glucose (Misc Panel) 300H 09/24/16 05:38: Bedside Glucose (Misc Panel) 185H 09/24/16 06:25: Blood Urea Nitrogen 27H, Creatinine 1.60H, Sodium Level 141, Potassium Level 4.4 , Chloride Level 110H, Carbon Dioxide Level 25, Calcium Level 7.9L, Phosphorus Level 2.3L, Aspartate Amino Transf (AST/SGOT) 15, Alanine Aminotransferase (ALT/ SGPT) 16, Lactate Dehydrogenase 139, Total Creatine Kinase 37L, Alkaline Phosphatase 76, Total Bilirubin 0.5, Triglycerides Level 76, Cholesterol Level 98, Total Protein 5.7L, Albumin 2.1L, Albumin/Globulin Ratio 0.58L, Anion Gap 6L , White Blood Count 7.6, Red Blood Count 3.11L, Hemoglobin 8.1L, Hematocrit 26.0L, Mean Corpuscular Volume 83.5, Mean Corpuscular Hemoglobin 26.0L, Mean Corpuscular Hemoglobin Concent 31.2L, Red Cell Distribution Width 14.4, Platelet Count 218, Neutrophils (%) (Auto) 82.5H, Lymphocytes (%) (Auto) 6.8L, Monocytes (%) (Auto) 6.3H, Eosinophils (%) (Auto) 1.1, Basophils (%) (Auto) 0.2 , Neutrophils # (Auto) 6.3, Lymphocytes # (Auto) 0.8L, Monocytes # (Auto) 0.5, Eosinophils # (Auto) 0.1, Basophils # (Auto) 0.0, Fasting Glucose 199H, Glomerular Filtration Rate 44.2, Large Unclassified Cells # 0.2, Large Unclassified Cells % 3.1 Current Medications Medications (Trade) Dose Ordered Sig/Monica Route PRN Reason Start Time Stop Time Status Last Admin Dose Admin Docusate Sodium (Colace) 100 mg BID PO 09/22/16 09:00 10/22/16 08:59 09/24/16 09:15 100 MG Insulin Human Lispro (HumaLOG INSULIN) SEE PROTOCOL TABLE Q6H SC 09/20/16 00:00 10/20/16 00:00 09/24/16 06:25 4 UNITS Lactobacillus Acidophilus (Bacid) 1 ea BID PO 09/22/16 09:00 10/22/16 08:59 09/24/16 09:15 1 EA Omeprazole (PriLOSEC) 20 mg DAILY PO 09/22/16 09:00 10/22/16 08:59 09/24/16 09:15 20 MG Paroxetine HCl (PAXil) 60 mg QHS PO 09/22/16 21:00 10/22/16 20:59 09/23/16 20:37 60 MG Polyethylene Glycol (Miralax) 1 pkt DAILY PO 09/24/16 09:00 10/24/16 08:59 09/24/16 09:14 1 PKT Pravastatin Sodium (Pravachol) 40 mg QHS PO 09/22/16 21:00 10/22/16 20:59 09/23/16 20:36 40 MG Senna 1 tab 1 tab BID PO 09/22/16 09:00 10/22/16 08:59 09/24/16 09:15 1 TAB Sodium Phosphate/ Dextrose (Sodium Phosphate Inj/ Dextrose 5%) 256.6667 ml @ 87 mls/hr ONCE ONCE IV 09/24/16 09:00 09/24/16 11:57 09/24/16 09:14 87 MLS/HR Trimethoprim/ Sulfamethoxazole (Bactrim Ds, Septra Ds 160mg/ 800mg) 1 tab BID PO 09/22/16 21:00 09/29/16 20:59 09/24/16 09:15 1 TAB Problems (1) Hypoxemia Status: Resolved (2) DM2 (diabetes mellitus, type 2) Status: Chronic (3) Hydronephrosis Status: Acute Response to Treatment: Improving Discussed With: Patient, Health Care Proxy (4) DVT prophylaxis Status: Acute Plan/VTE VTE Prophylaxis Ordered?: Yes Plan Diet: Continue Current Activity: Continue Current Pt and Family Services: Home Care Diagnostics: Repeat Labs in AM (cbc, bmp) Subjective Review oF Systems Chief Complaint The patient is a 81-year-old male admitted with a reason for visit of Bladder Neoplasm, Right Hydronephrosis. General: Reports: ROS Unobtainable Objective Physical Examination General Exam: : Alert: Cooperative: No Acute Distress Eye Exam: : Conjunctiva & lids normal: EOMI: PERRLANo: Sclera icteric ENT EXAM: : Atraumatic: Mucous membr. moist/pink Chest Exam: : Clear to auscultation: Normal air movement Heart Exam: Positive: Normal S1, Normal S2, Rate Normal, Negative: Gallops, Murmurs ABDOMEN EXAM: : Normal bowel sounds: Other (stoma pink, stents in position, clear urine): Soft Extremity Exam: : TendernessNo: Clubbing, Cyanosis, Edema Vital Signs/I&O Vital Signs Date Time Temp Pulse Resp B/P Pulse Ox O2 Delivery O2 Flow Rate FiO2 09/24/16 11:05 Room Air 09/24/16 06:00 97.1 75 18 146/76 91 09/21/16 08:00 1.0 09/20/16 06:00 50 I&O- Last 24 Hours up to 6 AM 09/24/16 06:00 Intake Total 2983 ml Output Total 1400 ml Balance 1583 ml Laboratory Data Labs 24H Laboratory Tests 2 09/23/16 11:33: Bedside Glucose (Misc Panel) 388H 09/23/16 16:57: Bedside Glucose (Misc Panel) 300H 09/24/16 05:38: Bedside Glucose (Misc Panel) 185H 09/24/16 06:25: Blood Urea Nitrogen 27H, Creatinine 1.60H, Sodium Level 141, Potassium Level 4.4 , Chloride Level 110H, Carbon Dioxide Level 25, Calcium Level 7.9L, Phosphorus Level 2.3L, Aspartate Amino Transf (AST/SGOT) 15, Alanine Aminotransferase (ALT/ SGPT) 16, Lactate Dehydrogenase 139, Total Creatine Kinase 37L, Alkaline Phosphatase 76, Total Bilirubin 0.5, Triglycerides Level 76, Cholesterol Level 98, Total Protein 5.7L, Albumin 2.1L, Albumin/Globulin Ratio 0.58L, Anion Gap 6L , White Blood Count 7.6, Red Blood Count 3.11L, Hemoglobin 8.1L, Hematocrit 26.0L, Mean Corpuscular Volume 83.5, Mean Corpuscular Hemoglobin 26.0L, Mean Corpuscular Hemoglobin Concent 31.2L, Red Cell Distribution Width 14.4, Platelet Count 218, Neutrophils (%) (Auto) 82.5H, Lymphocytes (%) (Auto) 6.8L, Monocytes (%) (Auto) 6.3H, Eosinophils (%) (Auto) 1.1, Basophils (%) (Auto) 0.2 , Neutrophils # (Auto) 6.3, Lymphocytes # (Auto) 0.8L, Monocytes # (Auto) 0.5, Eosinophils # (Auto) 0.1, Basophils # (Auto) 0.0, Glomerular Filtration Rate 44.2, Large Unclassified Cells # 0.2, Large Unclassified Cells % 3.1 CBC/BMP Laboratory Tests 09/23/16 12:00 09/23/16 16:48 09/24/16 06:25 Calcium Level 7.9 L, Phosphorus Level 2.3 L, Aspartate Amino Transf (AST/SGOT) 15, Alanine Aminotransferase (ALT/SGPT) 16, Lactate Dehydrogenase 139, Total Creatine Kinase 37 L, Alkaline Phosphatase 76, Total Bilirubin 0.5, Triglycerides Level 76, Cholesterol Level 98, Total Protein 5.7 L, Albumin 2.1 L , Red Blood Count 3.11 L, Mean Corpuscular Volume 83.5, Mean Corpuscular Hemoglobin 26.0 L, Mean Corpuscular Hemoglobin Concent 31.2 L, Red Cell Distribution Width 14.4, Neutrophils (%) (Auto) 82.5 H, Lymphocytes (%) (Auto) 6.8 L, Monocytes (%) (Auto) 6.3 H, Eosinophils (%) (Auto) 1.1, Basophils (%) ( Auto) 0.2, Neutrophils # (Auto) 6.3, Lymphocytes # (Auto) 0.8 L, Monocytes # ( Auto) 0.5, Eosinophils # (Auto) 0.1, Basophils # (Auto) 0.0 FSBS Laboratory Tests Test 09/23/16 11:33 09/23/16 16:57 09/24/16 05:38 Range/Units Bedside Glucose (Misc Panel) 388 300 185 83-110 MG/DL MICHAEL ESPINOZA MD Sep 24, 2016 11:35
[2016-09-24 14:00] VITALS: BP 136/63
--- NOTE | 2016-09-24 14:01 | IPNPDOC ---
Text Note Date of Service The patient was seen on 09/24/16. NOTE Subjective: Patient is an 81 year old male with a PMHx of Mental retardation, CAD , NIDDM2, HTN, Hiatal hernia, GERD and recent history of bladder cancer who presented from [facility] for an elective bladder surgery. Patient had a radial cystectomy, plus prostatectomy, and extensive pelvic lymph node dissection with ileal conduit urinary diversion. Patient was seen and examined at the bedside. He is able to have good urine output via the ostomy, but has not had a bowel movement. Has not experienced any abdominal pain, nausea or vomiting. Objective: Vitals (See below) General: Lying in bed, no acute distress, comfortable, Awake + Alert HEENT: NC, AT CVS: RRR, +S1S2 Lungs: Fair air entry b/l, -w/r/r Abdomen: Soft, ND, NT, Bowel sounds present, Ileal conduit present (bilateral nephrostomy tubes draining) Extremities: +PPx4, - Edema, - Calf tenderness Assessment and plan: 1. s/p Hypoxemia - likely 2/2 fluid overload - no longer requires supplemental oxygen 2. s/p Hypotension - possibly 2/2 medications - currently hemodynamically stable - did not require pressor support 3. s/p Acute kidney injury on chronic kidney disease - possibly 2/2 pre/intra/ post renal etiology - Baseline Cr of 1.4-1.6 - Currently Cr at baseline - Avoid nephrotoxic medications - s/p Hypotension - s/p Nephrostomy tube - s/p IV fluid hydration 4. Normocytic anemia - Hg has been on the lower side of normal - No acute bleeding episodes - Will continue to trend H&H - Will transfuse if < 7.5 5. s/p Leukocytosis - likely 2/2 reactive etiology, possibly infectious etiology 2/2 UTI - Remained afebrile - Urine culture from 09/14 reveals positive for MRSA; sensitive to TMP-SMX - s/p Vancomycin and Zosyn - c/w TMP-SMX (Antibiotic day # 6) 6. Mental retardation - is self sufficient and performs own ADLs - lives at [facility] 7. CAD - not on Aspirin or plavix - will defer to outpatient provider 8. NIDDM2 - c/w ISS 9. HTN - BP well controlled - not on any medications at this time 10. Recent history of bladder cancer - Will follow with Dr. Lee as an outpatient - Will need defer decision to refer to oncology to Primary team 11. Hiatal hernia and GERD - c/w omprazole 12. DVT prophylaxis - c/w SCDs VS,Fishbone, I+O VS, Fishbone, I+O Laboratory Tests 09/23/16 16:48 09/24/16 06:25 Calcium Level 7.9 L, Phosphorus Level 2.3 L, Aspartate Amino Transf (AST/SGOT) 15, Alanine Aminotransferase (ALT/SGPT) 16, Lactate Dehydrogenase 139, Total Creatine Kinase 37 L, Alkaline Phosphatase 76, Total Bilirubin 0.5, Triglycerides Level 76, Cholesterol Level 98, Total Protein 5.7 L, Albumin 2.1 L , Red Blood Count 3.11 L, Mean Corpuscular Volume 83.5, Mean Corpuscular Hemoglobin 26.0 L, Mean Corpuscular Hemoglobin Concent 31.2 L, Red Cell Distribution Width 14.4, Neutrophils (%) (Auto) 82.5 H, Lymphocytes (%) (Auto) 6.8 L, Monocytes (%) (Auto) 6.3 H, Eosinophils (%) (Auto) 1.1, Basophils (%) ( Auto) 0.2, Neutrophils # (Auto) 6.3, Lymphocytes # (Auto) 0.8 L, Monocytes # ( Auto) 0.5, Eosinophils # (Auto) 0.1, Basophils # (Auto) 0.0 Vital Signs Date Time Temp Pulse Resp B/P Pulse Ox O2 Delivery O2 Flow Rate FiO2 09/24/16 11:05 Room Air 09/24/16 06:00 97.1 75 18 146/76 91 09/21/16 08:00 1.0 09/20/16 06:00 50 I&O- Last 24 Hours up to 6 AM 09/24/16 05:59 Intake Total 2863 ml Output Total 600 ml Balance 2263 ml GEO KING MD Sep 24, 2016 14:01
[2016-09-24] MEDS: PRAVASTATIN 20 MG TAB PO SCH (20:05)
[2016-09-24] MEDS: PARoxetine 20 MG TAB PO SCH (20:05)
[2016-09-24 22:00] VITALS: BP 158/75
[2016-09-25] MEDS: HumaLOG INSULIN (NovoLOG) PER UNIT SC SCH ×3 (00:22→13:33)
[2016-09-25 06:00] VITALS: BP 147/70
[2016-09-25 06:43] LABS: MEAN CORPUSCULAR HEMOGLOBIN 26.9 pg (27.0-33.0); MEAN CORPUSCULAR VOLUME 84.2 fl (80.0-96.0); RED CELL DISTRIBUTION WIDTH 14.5 % (11.5-14.5); WHITE BLOOD COUNT 8.7 K/mm3 (4.0-10.0)
[2016-09-25 07:02] LABS: CALCIUM LEVEL 8.3 MG/DL (8.8-10.2); CREATININE FOR GFR 1.42 MG/DL (0.70-1.30); GLOMERULAR FILTRATION RATE 50.7 (>35); POTASSIUM SERUM 4.4 MEQ/L (3.5-5.1)
[2016-09-25] MEDS ORDERED: BACT800T5 PO (07:15)
[2016-09-25] MEDS: BACTRIM 160MG/800MG DS TAB PO SCH (08:20)
[2016-09-25] MEDS: MIRALAX *UNIT DOSE* 17GM PACKET PO SCH (08:20)
[2016-09-25] MEDS: LACTOBACILLUS ACIDOPHILUS CAP (BACID) PO SCH (08:20)
[2016-09-25] MEDS: SENNA 8.6 MG TAB (SENOKOT) PO SCH (08:21)
[2016-09-25] MEDS: DOCUSATE SODIUM 100 MG CAP PO SCH (08:21)
[2016-09-25] MEDS: OMEPRAZOLE 20 MG CAP PO SCH (08:21)
--- NOTE | 2016-09-25 10:42 | IPNPDOC ---
Text Note Date of Service The patient was seen on 09/25/16. NOTE Subjective: Patient is an 81 year old male with a PMHx of Mental retardation, CAD , NIDDM2, HTN, Hiatal hernia, GERD and recent history of bladder cancer who presented from [facility] for an elective bladder surgery. Patient had a radial cystectomy, plus prostatectomy, and extensive pelvic lymph node dissection with ileal conduit urinary diversion. Patient was seen and examined at the bedside. He is tolerating his meal, he has not had any other events. No nausea, vomiting or abdominal pain. Has continued to show good ambulation. Objective: Vitals (See below) General: Lying in bed, no acute distress, comfortable, Awake + Alert HEENT: NC, AT CVS: RRR, +S1S2 Lungs: Fair air entry b/l, -w/r/r Abdomen: Soft, ND, NT, Bowel sounds present, Ileal conduit present (bilateral nephrostomy tubes draining) Extremities: +PPx4, - Edema, - Calf tenderness Assessment and plan: 1. s/p Hypoxemia - likely 2/2 fluid overload - no longer requires supplemental oxygen 2. s/p Hypotension - possibly 2/2 medications - currently hemodynamically stable; without requiring pressor support throughout hospitalization 3. s/p Acute kidney injury on chronic kidney disease - possibly 2/2 pre/intra/ post renal etiology - Baseline Cr of 1.4-1.6; currently much improved than admission - Will continue to avoid nephrotoxic medications - s/p Hypotension - s/p Nephrostomy tube - s/p IV fluid hydration 4. Normocytic anemia - Hg has remained stable - Has not required transfusions - No acute bleeding episodes - Will continue to trend H&H and transfuse if < 7.5 5. s/p Leukocytosis - likely 2/2 reactive etiology, possibly infectious etiology 2/2 UTI - Remained afebrile - Urine culture from 09/14 reveals positive for MRSA; sensitive to TMP-SMX - s/p Vancomycin and Zosyn - c/w TMP-SMX (Antibiotic day # 7) will continue as an outpatient for completion of antibiotic course 6. Mental retardation - is self sufficient and performs own ADLs - lives at [facility] 7. CAD - not on Aspirin or plavix - will defer to outpatient provider 8. NIDDM2 - c/w ISS 9. HTN - BP well controlled - not on any medications at this time 10. Recent history of bladder cancer - Will follow with Dr. Lee as an outpatient - Will defer decision to refer to oncology to Primary team 11. Hiatal hernia and GERD - c/w omprazole 12. DVT prophylaxis - c/w SCDs Disposition: - Will be discharged back to [facility] today with follow up with Dr. Lee and completion of antibiotics as an outpatient VS,Stanislav, I+O VS, Stanislav, I+O Laboratory Tests 09/25/16 06:29 Calcium Level 8.3 L, Red Blood Count 3.31 L, Mean Corpuscular Volume 84.2, Mean Corpuscular Hemoglobin 26.9 L, Mean Corpuscular Hemoglobin Concent 32.0, Red Cell Distribution Width 14.5 Vital Signs Date Time Temp Pulse Resp B/P Pulse Ox O2 Delivery O2 Flow Rate FiO2 09/25/16 06:00 98.0 81 20 147/70 96 Nasal Cannula 2.0 09/20/16 06:00 50 I&O- Last 24 Hours up to 6 AM 09/25/16 06:00 Intake Total 1200 ml Output Total 1000 ml Balance 200 ml GEO KING MD Sep 25, 2016 10:42
[2016-09-25 14:00] VITALS: BP 135/80
[2016-09-25] MEDS ORDERED: MAGNESIUM CITRATE 300 ML BTL PO ONE (16:15)
--- NOTE | 2016-09-25 17:07 | DSES ---
DATE OF ADMISSION: 09/19/2016 DATE OF DISCHARGE: 09/25/2016 ADMISSION DIAGNOSIS: Bladder cancer. DISCHARGE DIAGNOSIS: Bladder cancer. SURGERY PERFORMED: Robotic-assisted radical cystectomy, plus prostatectomy, plus bilateral extended pelvic lymph node dissections, plus intracorporeal ileoconduit urinary diversion. ADMITTING SURGEON: Dr. Darryl Lee DISCHARGE SURGEON: Dr. Darryl Lee SURGERY PERFORMED: By Dr. Darryl Lee COMPLICATIONS: None. HISTORY OF PRESENT ILLNESS: This is an 81-year-old male patient who has muscle invasive bladder cancer and has a right hydronephrosis caused by obstruction of the distal ureter by the bladder neoplasm. He got a right nephrostomy tube. He had consented for a robotic-assisted radical cystectomy plus bilateral extended pelvic lymph node dissections, plus intracorporeal urinary diversion, ileoconduit type, plus possible right nephrectomy. The patient had the surgery done on 09/19/2016 without any complications. HOSPITALIZATION COURSE: The patient on postoperative day #1 had a urostomy bag putting our clear urine. His nephrostomy tube was to gravity, putting out clear urine also. We did not do a right nephrectomy, since ureteral margin was negative for cancer. We just did a robotic-assisted radical cystectomy, plus prostatectomy, plus bilateral extended lymph node dissections, plus intracorporeal ileoconduit urinary diversion. The patient was sitting up in bed. No nausea. No vomiting. Pain was controlled with by mouth pain medication. He actually passed from surgery to intensive care unit due to respiratory distress, requiring a respiratory mask and oxygen. Pulmonary critical care was consulted and also the hospitalist service was consulted. By postoperative day #2, the patient was awake, oriented times three. He was tolerating clear liquids. He was weaned off from his respiratory mask and oxygen. He was ambulating very well. Practically pain was 0, and he did not require any pain medications in the immediate postoperative period. His urostomy bag was putting our clear urine. He got two stents on both kidneys. By postoperative day #3, the patient actually was tolerating clear liquids very well. He had a urostomy bag putting out adequate amount of urine. An x-ray showed that he had stents in good position. A chest x-ray also showed that he was ventilating very well. He was weaned off completely of the oxygen and was transferred to the floor. For this reason, we actually started him on postoperative day #4 on a regular diet. The patient was tolerating a regular diet very well. He was ambulating with assistance. We discontinued the right nephrostomy tube and placed a Band-Aid on it. He was putting out clear urine. His James-Laurent (SUMA) output was about 200-300 per shift. We ordered creatinine levels on the fluid of the SUMA, which was normal and similar to the serum. For this reason, we discontinued the SUMA and placed a Band-Aid on the area of incision site of the SUMA. The patient actually on postoperative day #5 was ambulating very well, tolerating a regular diet, passing gas. Pain was under control. He did not require any pain medication. He was saline locked. By postoperative day #6, the patient was tolerating a regular diet, ambulating very well, passing gas. The urostomy was pink, putting out clear urine. He has two stents on the bilateral kidneys, which were permeable. He was on by mouth antibiotics. For this reason, the patient will be discharged to his retirement. He will be discharged and continue his postoperative care in the retirement. He will be discharged with Bactrim double strength one tablet by mouth twice a day. Followup at [facility] in 1 week, and he will continue on his home medications.
== END 2016-09-25 17:55 | disposition home or self-care (01) | DRG 654 ==
LOC: M OR 05:45 → M ICU 18:33 → M MS5PR 09-21 14:18
PROVIDERS: ADMIT Urology; ATTEND Urology
PROC: 0TBB4ZX Excision of Bladder, Percutaneous Endoscopic Approach, Diagnostic (ICD-10-PCS; 2016-09-19)
PROC: 07BC4ZX Excision of Pelvis Lymphatic, Percutaneous Endoscopic Approach, Diagnostic (ICD-10-PCS; 2016-09-19)
PROC: 8E0W4CZ Robotic Assisted Procedure of Trunk Region, Percutaneous Endoscopic Approach (ICD-10-PCS; 2016-09-19)
PROC: 0VB04ZX Excision of Prostate, Percutaneous Endoscopic Approach, Diagnostic (ICD-10-PCS; 2016-09-19)
PROC: 0T1 Urinary System, Bypass (ICD-10-PCS; principal; 2016-09-19 07:30)
DX: C67.0 Malignant neoplasm of trigone of bladder (principal); N13.30 Unspecified hydronephrosis; N17.9 Acute kidney failure, unspecified; C77.5 Secondary and unspecified malignant neoplasm of intrapelvic lymph nodes; E11.9 Type 2 diabetes mellitus without complications; K21.9 Gastro-esophageal reflux disease without esophagitis; I12.9 Hypertensive chronic kidney disease with stage 1 through stage 4 chronic kidney disease, or unspecified chronic kidney disease; I25.10 Atherosclerotic heart disease of native coronary artery without angina pectoris; I34.0 Nonrheumatic mitral (valve) insufficiency; K44.9 Diaphragmatic hernia without obstruction or gangrene; E87.5 Hyperkalemia; Z88.8 Allergy status to other drugs, medicaments and biological substances; Z91.040 Latex allergy status; Z79.899 Other long term (current) drug therapy; R09.02 Hypoxemia; D50.9 Iron deficiency anemia, unspecified; N18.9 Chronic kidney disease, unspecified

== ENCOUNTER → 2016-10-30 | Outpatient (CLI) | payer MEDICARE, MEDICAID ==
[~2016-10-30] MED LIST changes: +PAXI20TA3 PO; +PAXI40TA2 PO; +TYLE325T5 PO
[2016-10-30 12:14] LABS: MEAN CORPUSCULAR HEMOGLOBIN 25.9 pg (27.0-33.0); MEAN CORPUSCULAR HGB CONC 30.7 g/dl (32.0-36.5); MEAN CORPUSCULAR VOLUME 84.3 fl (80.0-96.0); RED CELL DISTRIBUTION WIDTH 16.8 % (11.5-14.5)
[2016-10-30 12:49] LABS: CALCIUM LEVEL 8.9 MG/DL (8.8-10.2); CREATININE FOR GFR 1.41 MG/DL (0.70-1.30); GLOMERULAR FILTRATION RATE 51.1 (>35); POTASSIUM SERUM 4.8 MEQ/L (3.5-5.1)
== END ==
LOC: M WUC 08:42
PROVIDERS: ATTEND Urology
DX: C67.9 Malignant neoplasm of bladder, unspecified (principal); E11.9 Type 2 diabetes mellitus without complications

== ENCOUNTER → 2016-10-30 | Outpatient (CLI) | payer MEDICARE, MEDICAID | LOC: M WUC 08:48 | PROVIDERS: ATTEND Family Medicine | DX: E11.9 Type 2 diabetes mellitus without complications (principal) ==

== ENCOUNTER 2016-11-02 00:19 | Inpatient (IN) | payer MEDICARE, MEDICAID ==
[~2016-11-02] VITALS: Ht 167.6 cm; Wt 98.0 kg
[~2016-11-02 00:19] MED LIST changes: -PAXI20TA3 PO; -PAXI40TA2 PO; -TYLE325T5 PO
[2016-11-02] MEDS ORDERED: PAXI40TA2 PO (00:47)
[2016-11-02] MEDS ORDERED: PAXI20TA3 PO (00:47)
[2016-11-02] MEDS ORDERED: NS 1,000 ML IV ONE ×2 (01:45→03:00)
[2016-11-02 01:49] LABS: VENOUS BASE EXCESS -4.5 (-2.0-2.0); VENOUS O2 SATURATION 99.7 % (60.0-80.0); VENOUS PARTIAL PRESSURE CO2 43.7 mmHg (38.0-50.0); VENOUS PARTIAL PRESSURE O2 224.2 mmHg (30.0-50.0); VENOUS STANDARD HCO3 20.8 MEQ/L; VENOUS TOTAL CO2 22.9 MEQ/L (24.0-28.0)
[2016-11-02 01:50] LABS: BASO % 0.2 % (0.0-1.0); EOS % 0.3 % (0.0-3.0); LARGE UNSTAINED CELL # 0.3 K/mm3 (0.0-0.4); LARGE UNSTAINED CELL % 2.1 % (0.0-4.0); LYMPH # 0.7 K/mm3 (1.5-4.5); LYMPH % 5.9 % (24.0-44.0); MEAN CORPUSCULAR HEMOGLOBIN 24.9 pg (27.0-33.0); MEAN CORPUSCULAR HGB CONC 29.9 g/dl (32.0-36.5); MEAN CORPUSCULAR VOLUME 83.3 fl (80.0-96.0); MONO # 0.8 K/mm3 (0.0-0.8); MONO % 6.6 % (0.0-5.0); NEUTROPHILS # 10.4 K/mm3 (1.8-7.7); NEUTROPHILS % 84.9 % (36.0-66.0); PLATELET COUNT, AUTOMATED 182 k/mm3 (150-450); RED CELL DISTRIBUTION WIDTH 16.6 % (11.5-14.5); WHITE BLOOD COUNT 12.2 K/mm3 (4.0-10.0)
[2016-11-02 02:03] LABS: ALBUMIN 2.6 GM/DL (3.2-5.2); ALBUMIN/GLOBULIN RATIO 0.62 (1.00-1.93); ALKALINE PHOSPHATASE 90 U/L (45-117); ALT/SGPT 14 U/L (12-78); ANION GAP 8 MEQ/L (8-16); AST/SGOT 7 U/L (15-37); BILIRUBIN,DIRECT 0.2 MG/DL (0.0-0.2); BILIRUBIN,TOTAL 0.7 MG/DL (0.2-1.0); BLOOD UREA NITROGEN 45 MG/DL (7-18); CALCIUM LEVEL 8.2 MG/DL (8.8-10.2); CARBON DIOXIDE LEVEL 24 MEQ/L (21-32); CHLORIDE LEVEL 100 MEQ/L (98-107); CREATININE FOR GFR 2.18 MG/DL (0.70-1.30); GLOMERULAR FILTRATION RATE 30.9 (>35); GLUCOSE, FASTING 308 MG/DL (83-110); POTASSIUM SERUM 4.5 MEQ/L (3.5-5.1); SODIUM LEVEL 132 MEQ/L (136-145); TOTAL PROTEIN 6.8 GM/DL (6.4-8.2)
[2016-11-02 02:21] LABS: METHADONE URINE NEGATIVE (NEGATIVE)
[2016-11-02] MEDS ORDERED: PIPERACILLIN/TAZOBACTAM SOD 3.375 GM in D5W MINI-BAG PLUS 50 ML IV ONE (03:00)
[2016-11-02] MEDS ORDERED: BACITAB3 PO (03:41)
[2016-11-02] MEDS ORDERED: TYLE325T5 PO (03:42)
[2016-11-02] MEDS ORDERED: GLUCOSE 4 GM CHEW TABLET PO PRN (04:15)
[2016-11-02] MEDS ORDERED: GLUCAGON FOR INJ 1 MG VIAL (J1610) SC PRN (04:15)
[2016-11-02] MEDS ORDERED: DEXTROSE 50% 50 ML SYRINGE IV PRN (04:15)
[2016-11-02] MEDS ORDERED: MOM 30ML SUSPENSION UDC PO PRN (04:15)
[2016-11-02] MEDS ORDERED: BISACODYL 10 MG SUPP PR PRN (04:15)
[2016-11-02] MEDS: NS 1,000 ML IV SCH ×2 (04:15→16:48)
[2016-11-02] MEDS ORDERED: ACETAMINOPHEN TAB 650MG DOSE (2X325MG) PO PRN (04:15)
[2016-11-02 04:29] LABS: RETIC HEMOGLOBIN CONTENT CHr 27.2 PG (24-36); RETICULOCYTE ABSOLUTE ADVIA212 104 x10(9)/L (17-77)
[2016-11-02 04:41] LABS: FERRITIN 87 NG/ML (26-388); PERCENT SATURATION 4.6 % (19.7-37.4); TOTAL IRON BINDING CAPACITY 302 UG/DL (250-450)
--- NOTE | 2016-11-02 04:47 | PHACANCOPD ---
PHARMACY VANCOMYCIN DOSING Pt Demographics Demographics Patient Age:81 , Weight: , Gender: male Adjusted Body Weight Date: 11/02/16, Adjusted Body Weight: [63] Kg Events Past 24 Hours Events Past 24 Hours: NO: Dialysis, Diuretic Therapy, Change in CrCl, Fever, Elevation in WBC, Pending Diagnostics, Pending Procedures, Other Vancomycin Vancomycin Target Ranges: 15-20 mcg/ml Vancomycin Load Y/N: No Load Dose Date Time Vancomycin Load Dose: Date: Time: Vancomycin Dose Date: 11/02/16. Current Vancomycin Dose: [1000MG Q24H] Intermittent Dosing?: No Labs Labs Item Value Date Time White Blood Count 12.2 K/mm3 H 11/02/16 0048 Creatinine 2.18 MG/DL H # 11/02/16 0048 Micro Microbiology 11/02/16 Blood Culture, Received Pending 11/02/16 Blood Culture, Received Pending 11/02/16 Urine Culture, Received Pending Creatinine Clearance Date:11/02/16. Creatinine Clearance: [23]. Pending Labs Trough 05-@1100 Assessment and Plan Maintaining Current Dose?: Yes Reason for dose change: No Dose Change Pharmacist Note Pharmacist Note Date: 11/02/16. Pharmacist note:Dosed at 1000mg q24h with a trough ordered for 05 - @1100. Will continue to monitor and make adjustments as needed. JALIL CHAVEZ PHARMACY November 02, 2016 04:47
[2016-11-02 04:54] VITALS: O2SAT 92
[2016-11-02 05:03] LABS: ABG BASE EXCESS -6.7 (-2.0-2.0); ABG HCO3 17.1 MEQ/L (22.0-26.0); ABG PARTIAL PRESSURE CO2 27.2 mmHg (35.0-45.0); ABG PARTIAL PRESSURE O2 58.8 mmHg (75.0-100.0); ABG STANDARD HCO3 18.8 MEQ/L (22.0-26.0); ABG TOTAL CO2 17.9 MEQ/L (23.0-31.0); ABG pH (ARTERIAL) 7.416 UNITS (7.350-7.450)
--- NOTE | 2016-11-02 07:02 | REP ---
Clinical: Altered mental status. Technique: AP and lateral views. Comparison: 09/19/2016. Findings: Examination is limited by technique and poor inspiratory effort. Mediastinum and cardiac silhouette are stable and grossly within normal limits. Lung smiley demonstrate chronic interstitial changes most densely noted at the bilateral bases. No obvious acute consolidation, effusion or pneumothorax appreciated. Skeletal structures demonstrate age-related degenerative changes. Impression: Chronic stable changes. Subtle superimposed basilar atelectasis cannot be excluded. Signed by Timmy Richey MD 11/02/2016 06:53 A
--- NOTE | 2016-11-02 07:12 | REP ---
Clinical: Abnormal urinalysis and abdominal pain. Technique: Single supine view of the abdomen and pelvis. Comparison: 09/19/2016. Findings: Dilated loops of small bowel are appreciated measuring 6 cm maximal diameter with air and fecal material noted in the colon. Differential diagnosis includes partial / early small bowel obstruction and ileus. Postsurgical changes are appreciated and the previously noted urostomy and ureteral stents are not identified on current examination. Skeletal structures demonstrate degenerative changes. Impression: Dilated loops of small bowel with air and fecal material in the colon. Differential diagnosis includes early/partial small bowel obstruction as well as ileus. Close clinical observation is recommended and CT may be warranted if the patient remains symptomatic Signed by Timmy Richey MD 11/02/2016 07:04 A
[2016-11-02] MEDS: VANCOMYCIN HCL 1,000 MG, VIAL MATE ADAPTER 1 EACH in D5W 250 ML IV SCH (07:30)
--- NOTE | 2016-11-02 07:48 | HPEPDOC ---
General Date of Admission November 02, 2016 at 03:46 Primary Care Physician: BI ROSENBAUM MD [facility] Attending Physician: FRANCISCO JAVIER WILSON DO Chief Complaint The patient is a 81-year-old male admitted with a reason for visit of Sepsis. Source: Old records, [facility] Caregiver/Aid Exam Limitations: Clinical conditions Timing/Duration: This evening Associated Symptoms: Unobtainable History of Present Illness Mr. Recio is an 81 year old male who presents to [facility]'s Emergency Department with unsteady gait, fever, and hypotension. He is accompanied by his [facility] caregiver who provides all of the history. Past medical history is significant for metastatic urothelial cancer, prostate cancer, diabetes mellitus, gastroesophageal reflux disease, depression, constipation, insomnia, grade II diastolic dysfunction, coronary artery disease with myocardial infarction status post cardiac catheterization, history of gastrointestinal bleed, history of hiatal hernia, history of urinary MRSA. Caregiver states that patient has had increased gait unsteadiness that has worsened since last evening. Caregiver describes him as leaning forward and shifting from side to side. She reports that he appeared weak at his knees. They encouraged fluids throughout the day. Also noticed that his urinary ostomy earlier in the day appeared more dark. At 19:30 they checked his temperature and it was 100.8 for which they gave tylenol. His blood pressure at that time was normal. The caregiver emptied his urinary ostomy at about midnight with a volume of 200mL that was operations vice president in color that the earlier urine collection. She noted that he appeared shaky at his knees and was leaning over. No falls reported acutely. Patient did sustain a fall two weeks ago where he hit his head and bruised his left arm. They checked his blood pressure and it was 76/58 with a heart rate of 104. At that point they called 911 and had patient transported to [facility]. 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 He ambulates without a walker or a cane. He cares for a fish and is able to carry on a conversation. During evaluation patient reports negative review of systems. Hospitalist service was consulted and patient was admitted for further medical management. Home Medications Scheduled (Amaryl) 2 Mg Tab, 2 MG PO QAM, (Reported) (Senna Plus 8.6-50 mg) 1 Tab Tab, 1 TAB PO BID, (Reported) Calcium/Vitamin D (Oscal 500/200 D-3 500-200 mg-Unit) 1 Tab Tab, 1 TAB PO BID, ( Reported) Carbamide Peroxide (Debrox) 6.5 % Madison, 1 DROP AU 2XW, (Reported) TUES, SAT AT BEDTIME Chlorhexidine Gluconate (Peridex) 0.12 % Madison, 10 ML MT BID, (Reported) Docusate Sodium (Colace) 100 Mg Cap, 100 MG PO BID, (Reported) Lactobacillus Acidophilus (Bacid) 1 Tab Tab, 1 TAB PO BID, (Reported) Omeprazole (Prilosec) 20 Mg Cap, 20 MG PO QAM, (Reported) Paroxetine Hydrochloride (Paxil) 40 Mg Tab, 40 MG PO QHS, (Reported) give with Paxil 20mg Paroxetine Hydrochloride (Paxil) 20 Mg Tab, 20 MG PO QHS, (Reported) give with Paxil 40mg Polyethylene Glycol (Miralax) 1 Pow Pow, 17 GM PO QAM, (Reported) Pravastatin Sod (Pravastatin Sodium) 40 Mg Tab, 40 MG PO QHS, (Reported) Quetiapine Fumarate (Seroquel Xr) 200 Mg Bettina, 200 MG PO DAILY, (Reported) TAKES @ 1630 Scheduled PRN Acetaminophen (Tylenol) 325 Mg Tab, 650 MG PO Q4H PRN for PAIN / FEVER, ( Reported) Bisacodyl (Bisacodyl) 10 Mg Sup, 10 MG LA DAILY PRN for CONSTIPATION, (Reported) ON DAY 4 WITHOUT A BM Milk Of Magnesia (Milk of Magnesia) 1,200 Mg/15 Ml Belen, 30 ML PO DAILY PRN for CONSTIPATION, (Reported) Allergies Coded Allergies: Povidone Iodine (Verified Allergy, Intermediate, Hives, 11/02/16) Latex (Verified Adverse Reaction, Intermediate, risk, 11/02/16) Past Medical History Medical History 1. Metastatic urothelial cancer 2. Prostate cancer 3. Diabetes mellitus 4. Gastroesophageal reflux disease 5. Depression 6. Constipation 7. Insomnia 8. Grade II diastolic dysfunction 9. Coronary artery disease with myocardial infarction status post cardiac catheterization 10. History of gastrointestinal bleed 11. History of hiatal hernia 12. History of urinary MRSA Surgical History 1. Radical cystectomy 2. Prostatectomy 3. History of cystoscopy 4. TURBT 5. Colonoscopy 6. EGD 7. Cardiac catheterization 8. Cholecystectomy Family History Aurea Smith Niece Social History * Smoker: Denies Alcohol: Denies Drugs: denies Recent Travel/Sick Contacts: Denies: Recent travel, Recent sick contacts Resides at [facility] Has a pet fish for which he cares Mild MR [place] Review of Symptoms Other systems Unobtainable Physical Examination General Exam: Positive: Alert, Cooperative, No Acute Distress Eye Exam: Positive: PERRLA, Conjunctiva & lids normal, EOMI, Negative: Sclera icteric, Ptosis ENT Exam: Positive: Atraumatic, Pharynx Normal, Tongue Midline, Nares Patent, Negative: Mucous membr. moist/pink, Pharyngeal Edema Neck Exam: Positive: Supple, Negative: JVD, thyromegaly, Lymphadenopathy Chest Exam: Positive: Clear to auscultation, Normal air movement Heart Exam: Positive: Rate Normal, Regular Rhythm, Normal S1, Normal S2, Negative: Gallops, Murmurs, Rubs Telemetry: Positive: No significant arrhythmia Abdomen Exam: Positive: Normal bowel sounds, Soft, Negative: Tenderness, Hepatospenomegaly, Mass, Hernia Extremity Exam: Positive: Normal pulses, Negative: Clubbing, Cyanosis, Edema, Tenderness, Swelling Skin Exam: Negative: Rash, Lesion Neuro Exam: Positive: Strength at 5/5 X4 ext, Cranial Nerves 3-12 NL Other physical findings Chest x-ray IMPRESSION: Chronic stable changes. Subtle superimposed basilar atelectasis cannot be excluded. Kidney, ureter, bladder x-ray IMPRESSION: Dilated loops of small bowel with air and fecal material in the colon. Differential diagnosis includes early/partial small bowel obstruction as well as ileus. Close clinical observation is recommended and CT may be warranted if the patient remains symptomatic. Vital Signs Vital Signs Date Time Temp Pulse Resp B/P (MAP) Pulse Ox O2 Delivery O2 Flow Rate FiO2 11/02/16 04:54 92 Nasal Cannula 3.0 11/02/16 04:34 76 11/02/16 04:13 109/55 (73) 11/02/16 03:09 16 11/02/16 00:25 99.0 Height (in): 66 Weight (kg): 63.503 BMI (kg): 22.6 Laboratory Data Labs 24H Laboratory Tests 2 11/02/16 00:46: 11/02/16 00:48: White Blood Count 12.2H, Red Blood Count 3.20L, Hemoglobin 8.0L, Hematocrit 26.6L, Mean Corpuscular Volume 83.3, Mean Corpuscular Hemoglobin 24.9L, Mean Corpuscular Hemoglobin Concent 29.9L, Red Cell Distribution Width 16.6H, Platelet Count 182, Neutrophils (%) (Auto) 84.9H, Lymphocytes (%) (Auto) 5.9L, Monocytes (%) (Auto) 6.6H, Eosinophils (%) (Auto) 0.3, Basophils (%) (Auto) 0.2 , Neutrophils # (Auto) 10.4H, Lymphocytes # (Auto) 0.7L, Monocytes # (Auto) 0.8 , Eosinophils # (Auto) 0.0, Basophils # (Auto) 0.0, Large Unclassified Cells % 2.1, Large Unclassified Cells # 0.3, Absolute Reticulocyte Count 104H, Percent Reticulocyte Count 3.30H, Reticulocyte Hgb Content (CHr) 27.2, Blood Gas Bicarbonate Standard 20.8, Venous Blood pH 7.310L, Venous Blood Partial Pressure CO2 43.7, Venous Blood Partial Pressure O2 224.2H, Venous Blood Total Carbon Dioxide 22.9L, Venous Blood HCO3 21.5L, Venous Blood Oxygen Saturation 99.7H, Venous Blood Base Excess -4.5L, Anion Gap 8, Glomerular Filtration Rate 30.9L, Lactic Acid Level 3.0*H, Calcium Level 8.2L, Iron Level 14L, Total Iron Binding Capacity 302, Transferrin % Saturation 4.6L, Ferritin 87, Aspartate Amino Transf (AST/SGOT) 7L, Alanine Aminotransferase (ALT/SGPT) 14, Alkaline Phosphatase 90, Total Bilirubin 0.7, Direct Bilirubin 0.2, Ammonia 24, Total Creatine Kinase 23L, Creatine Kinase MB 1.6, Creatine Kinase MB Relative Index 6.95H, Troponin I < 0.02, Total Protein 6.8, Albumin 2.6L, Albumin/Globulin Ratio 0.62L, Thyroid Stimulating Hormone (TSH) 2.360, Salicylates Level < 1.7L, Acetaminophen Level 2.5L, Ethyl Alcohol Level < 0.003 11/02/16 01:48: Urine Appearance CLOUDYH, Urine Color YELLOW, Urine pH 6.0, Urine Specific [place] 1.009, Urine Protein 2+H, Urine Glucose (UA) 1+H, Urine Ketones NEGATIVE , Urine Urobilinogen 0.2, Urine Bilirubin NEGATIVE, Urine Leukocyte Esterase 3+H , Urine Blood 1+H, Urine Nitrite NEGATIVE, Urine WBC (Auto) 117H, Urine RBC ( Auto) 9H, Urine Hyaline Casts (Auto) 0, Urine Bacteria (Auto) 3+H, Urine Squamous Epithelial Cells 1, Urine Amorphous Sediment SMALLH, Urine Sperm (Auto ) , Urine Amphetamines Screen NEGATIVE, Urine Benzodiazepines Screen NEGATIVE, Urine Opiates Screen NEGATIVE, Urine Methadone Screen NEGATIVE, Urine Barbiturates Screen NEGATIVE, Urine Phencyclidine Screen NEGATIVE, Urine Cocaine Metabolite Screen NEGATIVE, Urine Cannabinoids Screen NEGATIVE 11/02/16 01:56: Bedside Glucose (Misc Panel) 335H 11/02/16 04:55: Blood Gas Bicarbonate Standard 18.8L, Arterial Blood pH 7.416, Arterial Blood Partial Pressure CO2 27.2L, Arterial Blood Partial Pressure O2 58.8L, Arterial Blood Total CO2 17.9L, Arterial Blood HCO3 17.1L, Arterial Blood Base Excess - 6.7L, Arterial Blood Oxygen Saturation 87.5L CBC/BMP Laboratory Tests 11/02/16 00:48 Red Blood Count 3.20 L, Mean Corpuscular Volume 83.3, Mean Corpuscular Hemoglobin 24.9 L, Mean Corpuscular Hemoglobin Concent 29.9 L, Red Cell Distribution Width 16.6 H, Neutrophils (%) (Auto) 84.9 H, Lymphocytes (%) (Auto ) 5.9 L, Monocytes (%) (Auto) 6.6 H, Eosinophils (%) (Auto) 0.3, Basophils (%) ( Auto) 0.2, Neutrophils # (Auto) 10.4 H, Lymphocytes # (Auto) 0.7 L, Monocytes # (Auto) 0.8, Eosinophils # (Auto) 0.0, Basophils # (Auto) 0.0 Microbiology Microbiology 11/02/16 Blood Culture, Received Pending 11/02/16 Blood Culture, Received Pending 11/02/16 Urine Culture, Received Pending Assessment/Plan Mr. Recio is an 81 year old male with a past medical history is significant for metastatic urothelial cancer, prostate cancer, diabetes mellitus , gastroesophageal reflux disease, depression, constipation, insomnia, grade II diastolic dysfunction, coronary artery disease with myocardial infarction status post cardiac catheterization, history of gastrointestinal bleed, history of hiatal hernia, history of urinary MRSA who presents with unsteady gait, fever , and hypotension. Sepsis is diagnosed secondary to urinary versus respiratory etiology. Plan / VTE VTE Prophylaxis Ordered?: Yes (TEDs and sequentials) Plan Plan Sepsis Likely secondary to urinary versus respiratory etiology. Fever documented at [facility]. Tyenol as needed for fever. Urinalysis indicated underlying infection. Urine culture pending. KUB report above reports dilated loops of bowel. No urinary tract stones appreciated. Started zosyn and vancomycin. Could consider urology consult secondary to patient's underlying urologic problems and recent urologic procedure. Patient appeared to have some mild respiratory acidosis with oxygen retention on ABG. Follow-up ABG was improved. Chest x- ray did not report any acute infiltrate. Ordered oxygen therapy with oxygen titration above 90%. Hypotension Likely volume depleted. NS @ 80 mLs/hr. Bedrest with commode. Orthostatic vital signs. Anemia Appears macrocytic. Obtained iron studies and reticulocyte count. Also obtained B12 and folate levels. Monitor CBC. No active bleeding at this time. Acute kidney injury superimposed on chronic kidney disease NS @ 80 mLs/hr. Likely secondary to hypovolemia. Monitor BMP. Disposition Admit: Progressive care unit Anticipated hospitalization: 2 nights Attending: Dr. Wynne IVF: Initiate (NS @ 80 mLs/hr) Diet: Continue Current Activity: Bedrest (with commode) Diagnostics: Check Labs, Repeat Labs in AM Anticipated Discharge: Home ([facility]) LISSETH GOINS November 02, 2016 07:48
[2016-11-02] MEDS: HumaLOG INSULIN (NovoLOG) PER UNIT SC SCH ×4 (07:49→21:00)
[2016-11-02 08:00] VITALS: BP 116/55
--- NOTE | 2016-11-02 08:14 | ECGEPIP ---
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
[2016-11-02] MEDS: MIRALAX *UNIT DOSE* 17GM PACKET PO SCH ×2 (09:00→10:39)
[2016-11-02] MEDS: OMEPRAZOLE 20 MG CAP PO SCH (10:38)
[2016-11-02] MEDS: SENOKOT S TAB PO SCH ×2 (10:38→21:55)
[2016-11-02] MEDS: CHLORHEXIDINE GLUCONATE 0.12 % 15ML UDC (PERIDEX ORAL RINSE) MT SCH ×2 (10:39→21:55)
[2016-11-02] MEDS: LACTOBACILLUS ACIDOPHILUS CAP (BACID) PO SCH ×2 (10:39→21:55)
[2016-11-02] MEDS: CALCIUM/VITAMIN D 500 MG TAB PO SCH ×2 (10:39→21:55)
[2016-11-02] MEDS: DOCUSATE SODIUM 100 MG CAP PO SCH ×2 (10:40→21:55)
[2016-11-02 10:57] LABS: BASO % 0.2 % (0.0-1.0); EOS % 0.5 % (0.0-3.0); LARGE UNSTAINED CELL # 0.2 K/mm3 (0.0-0.4); LARGE UNSTAINED CELL % 1.7 % (0.0-4.0); LYMPH # 0.4 K/mm3 (1.5-4.5); LYMPH % 4.3 % (24.0-44.0); MEAN CORPUSCULAR HEMOGLOBIN 25.4 pg (27.0-33.0); MEAN CORPUSCULAR HGB CONC 30.4 g/dl (32.0-36.5); MEAN CORPUSCULAR VOLUME 83.5 fl (80.0-96.0); MONO # 0.4 K/mm3 (0.0-0.8); MONO % 4.3 % (0.0-5.0); NEUTROPHILS # 8.8 K/mm3 (1.8-7.7); NEUTROPHILS % 89.1 % (36.0-66.0); PLATELET COUNT, AUTOMATED 166 k/mm3 (150-450); RED CELL DISTRIBUTION WIDTH 16.6 % (11.5-14.5); WHITE BLOOD COUNT 9.9 K/mm3 (4.0-10.0)
[2016-11-02 11:10] LABS: CALCIUM LEVEL 7.9 MG/DL (8.8-10.2); CREATININE FOR GFR 2.16 MG/DL (0.70-1.30); GLOMERULAR FILTRATION RATE 31.2 (>35); POTASSIUM SERUM 4.2 MEQ/L (3.5-5.1)
[2016-11-02 12:00] VITALS: BP 98/54
[2016-11-02] MEDS: PIPERACILLIN/TAZOBACTAM SOD 2.25 GM in D5W MINI-BAG PLUS 50 ML IV SCH ×2 (12:07→20:51)
[2016-11-02 14:15] VITALS: BP 98/52
[2016-11-02 16:00] VITALS: BP 110/56
[2016-11-02] MEDS: QUEtiapine FUMARATE **XR** 200MG TABLET PO SCH (16:43)
[2016-11-02 20:00] VITALS: BP 105/62
[2016-11-02] MEDS ORDERED: PARoxetine 20 MG TAB PO SCH ×2 (21:00)
[2016-11-02] MEDS: PRAVASTATIN 20 MG TAB PO SCH (21:55)
[2016-11-02] MEDS: PARoxetine 20 MG TAB PO SCH (21:59)
[2016-11-03] VITALS (7 sets, daily range): BP systolic 102–136; BP diastolic 54–66
[2016-11-03] MEDS: NS 1,000 ML IV SCH ×2 (01:45→17:45)
[2016-11-03] MEDS: PIPERACILLIN/TAZOBACTAM SOD 2.25 GM in D5W MINI-BAG PLUS 50 ML IV SCH ×3 (04:47→20:29)
[2016-11-03 05:19] LABS: BASO % 0.1 % (0.0-1.0); EOS # 0.2 K/mm3 (0.0-0.50); EOS % 2.1 % (0.0-3.0); LARGE UNSTAINED CELL # 0.2 K/mm3 (0.0-0.4); LARGE UNSTAINED CELL % 2.5 % (0.0-4.0); LYMPH # 0.3 K/mm3 (1.5-4.5); LYMPH % 3.8 % (24.0-44.0); MEAN CORPUSCULAR HEMOGLOBIN 25.1 pg (27.0-33.0); MEAN CORPUSCULAR HGB CONC 30.3 g/dl (32.0-36.5); MEAN CORPUSCULAR VOLUME 82.8 fl (80.0-96.0); MONO # 0.4 K/mm3 (0.0-0.8); MONO % 4.4 % (0.0-5.0); NEUTROPHILS # 7.6 K/mm3 (1.8-7.7); NEUTROPHILS % 87.2 % (36.0-66.0); PLATELET COUNT, AUTOMATED 170 k/mm3 (150-450); RED CELL DISTRIBUTION WIDTH 16.7 % (11.5-14.5); WHITE BLOOD COUNT 8.7 K/mm3 (4.0-10.0)
[2016-11-03] MEDS: VANCOMYCIN HCL 1,000 MG, VIAL MATE ADAPTER 1 EACH in D5W 250 ML IV SCH (05:23)
[2016-11-03 07:19] LABS: CREATININE FOR GFR 1.91 MG/DL (0.70-1.30); POTASSIUM SERUM 4.3 MEQ/L (3.5-5.1)
[2016-11-03] MEDS: MIRALAX *UNIT DOSE* 17GM PACKET PO SCH (09:00)
[2016-11-03] MEDS: CHLORHEXIDINE GLUCONATE 0.12 % 15ML UDC (PERIDEX ORAL RINSE) MT SCH ×2 (09:16→20:31)
[2016-11-03] MEDS: DOCUSATE SODIUM 100 MG CAP PO SCH ×2 (09:17→20:31)
[2016-11-03] MEDS: SENOKOT S TAB PO SCH ×2 (09:17→20:30)
[2016-11-03] MEDS: CALCIUM/VITAMIN D 500 MG TAB PO SCH ×2 (09:17→20:31)
[2016-11-03] MEDS: LACTOBACILLUS ACIDOPHILUS CAP (BACID) PO SCH ×2 (09:17→20:29)
[2016-11-03] MEDS: OMEPRAZOLE 20 MG CAP PO SCH (09:17)
[2016-11-03] MEDS: HumaLOG INSULIN (NovoLOG) PER UNIT SC SCH ×4 (09:18→20:31)
--- NOTE | 2016-11-03 11:20 | IPNPDOC ---
Subjective Date Seen The patient was seen on 11/03/16. Subjective Chief Complaint/HPI The patient is a 81-year-old male admitted with a reason for visit of Sepsis. Events since last encounter Patient was seen this morning at bedside. He is a [facility] patient and not a reliable historian. However, when asked if he had pain, he stated no. He also stated no when asked about SOB, chest pain, nausea, vomiting, abd pain, headache. Objective Physical Examination General Exam: Positive: Alert, Cooperative, No Acute Distress Eye Exam: Positive: PERRLA, Conjunctiva & lids normal, EOMI, Negative: Sclera icteric ENT Exam: Positive: Atraumatic, Mucous membr. moist/pink, Pharynx Normal Neck Exam: Positive: Supple, Negative: JVD, thyromegaly, Lymphadenopathy Chest Exam: Positive: Clear to auscultation, Normal air movement Heart Exam: Positive: Rate Normal, Regular Rhythm, Normal S1, Normal S2, Negative: Murmurs Telemetry: Positive: No significant arrhythmia Abdomen Exam: Positive: Normal bowel sounds, Soft, Other (has urostomy in place draining clear urine), Negative: Tenderness, Hepatospenomegaly, Mass Extremity Exam: Positive: Normal pulses, Negative: Cyanosis, Edema, Tenderness Skin Exam: Positive: Nl turgor and temperature, Negative: Rash Neuro Exam: Positive: Cranial Nerves 3-12 NL, Negative: Normal Speech (has baseline intellectual disabilities) Psych Exam: Negative: Oriented x 3 (oreinted to person only, at baseline) Assessment /Plan Problems (1) Sepsis Status: Acute Problem Specific Plan: Monitor Clinically, Repeat Labs Problem Text: * Secondary to UTI * Vancomycin and Zosyn initiated on 11/02 * Remain on normal saline * Fever of 100.5 yesterday afternoon, BP stable, WBC and CRP has trended down * Urine culture contaminated, blood cultures show no growth thus far * (2) UTI (urinary tract infection) Status: Acute Problem Specific Plan: Monitor Clinically Problem Text: * As above (3) Acute renal failure superimposed on chronic kidney disease Status: Acute Problem Specific Plan: Monitor Clinically, Repeat Labs Problem Text: * Improving some * Continue normal saline * Monitor renal function and electrolytes (4) Anemia Status: Chronic Problem Specific Plan: Monitor Clinically, Repeat Labs Problem Text: * No signs of active bleeding * Iron found to be low * Will obtain stool occult * Monitor H/H (5) DM2 (diabetes mellitus, type 2) Status: Chronic Problem Specific Plan: Monitor Clinically, Repeat Tests Problem Text: * Insulin sliding scale with hypoglycemic protocol (6) GERD (gastroesophageal reflux disease) Status: Chronic Problem Specific Plan: Monitor Clinically Problem Text: * Continue Prilosec (7) CAD (coronary artery disease) Status: Chronic Problem Specific Plan: Monitor Clinically Problem Text: * Status post stent * He is on Pravachol, does not appear to be on ASA or BB (8) Chronic constipation Status: Chronic Problem Specific Plan: Monitor Clinically Problem Text: * Abdominal xray revealed dilated loops of small bowel with air and fecal material in the colon. 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, has urostomy in place (10) History of prostate cancer Status: Chronic Problem Text: * Status post prostatectomy (11) Depression Status: Chronic Problem Specific Plan: Monitor Clinically Problem Text: * Continue Paxil Plan/VTE VTE Prophylaxis Ordered?: Yes (TEDs and sequentials) VS, I&O, 24H, Fishbone Vital Signs/I&O Vital Signs Date Time Temp Pulse Resp B/P (MAP) Pulse Ox O2 Delivery O2 Flow Rate FiO2 11/03/16 08:06 Nasal Cannula 2.0 11/03/16 08:00 98.9 88 18 103/61 (75) 93 I&O- Last 24 Hours up to 6 AM 11/03/16 06:00 Intake Total 2920 ml Output Total 2775 ml Balance 145 ml Laboratory Data CBC/BMP Laboratory Tests 11/03/16 05:03 Calcium Level 8.0 L 11/03/16 05:04 Red Blood Count 3.18 L, Mean Corpuscular Volume 82.8, Mean Corpuscular Hemoglobin 25.1 L, Mean Corpuscular Hemoglobin Concent 30.3 L, Red Cell Distribution Width 16.7 H, Neutrophils (%) (Auto) 87.2 H, Lymphocytes (%) (Auto ) 3.8 L, Monocytes (%) (Auto) 4.4, Eosinophils (%) (Auto) 2.1, Basophils (%) ( Auto) 0.1, Neutrophils # (Auto) 7.6, Lymphocytes # (Auto) 0.3 L, Monocytes # ( Auto) 0.4, Eosinophils # (Auto) 0.2, Basophils # (Auto) 0.0 Microbiology Microbiology 11/02/16 Blood Culture - Preliminary, Resulted No growth after 24 hours . All specim... 11/02/16 Blood Culture - Preliminary, Resulted No growth after 24 hours . All specim... 11/02/16 Urine Culture - Final, Complete GME ATTESTATION GME ATTESTATION My preceptor for this patient encounter was physically present in the building during the encounter and was fully available. As needed, all aspects of the patient interview, examination, medical decision making process, and medical care plan development were reviewed and approved by the preceptor. Preceptor is aware and concurs with the plan as stated in the body of this note and will attest to such by his/her cosignature. LUIS ALBERTO CARDONA DO November 03, 2016 11:20
[2016-11-03] MEDS: QUEtiapine FUMARATE **XR** 200MG TABLET PO SCH (17:06)
[2016-11-03] MEDS: PRAVASTATIN 20 MG TAB PO SCH (20:30)
[2016-11-03] MEDS: PARoxetine 20 MG TAB PO SCH (20:30)
[2016-11-04] MEDS: PIPERACILLIN/TAZOBACTAM SOD 2.25 GM in D5W MINI-BAG PLUS 50 ML IV SCH (03:45)
[2016-11-04] MEDS: VANCOMYCIN HCL 1,000 MG, VIAL MATE ADAPTER 1 EACH in D5W 250 ML IV SCH (05:31)
[2016-11-04 05:40] LABS: CALCIUM LEVEL 7.6 MG/DL (8.8-10.2); CREATININE FOR GFR 1.73 MG/DL (0.70-1.30); GLOMERULAR FILTRATION RATE 40.4 (>35); POTASSIUM SERUM 3.9 MEQ/L (3.5-5.1)
[2016-11-04 05:41] VITALS: BP_SYST 111; BP_SYST 118; BP_SYST 126; BP_DIAS 65; BP_DIAS 67; BP_DIAS 72
[2016-11-04 05:45] LABS: BASO % 0.2 % (0.0-1.0); EOS # 0.4 K/mm3 (0.0-0.50); EOS % 7.1 % (0.0-3.0); LARGE UNSTAINED CELL # 0.2 K/mm3 (0.0-0.4); LARGE UNSTAINED CELL % 3.8 % (0.0-4.0); LYMPH # 0.5 K/mm3 (1.5-4.5); LYMPH % 9.2 % (24.0-44.0); MEAN CORPUSCULAR HEMOGLOBIN 25.2 pg (27.0-33.0); MEAN CORPUSCULAR HGB CONC 30.4 g/dl (32.0-36.5); MONO # 0.3 K/mm3 (0.0-0.8); MONO % 5.6 % (0.0-5.0); NEUTROPHILS # 3.9 K/mm3 (1.8-7.7); NEUTROPHILS % 74.1 % (36.0-66.0); PLATELET COUNT, AUTOMATED 198 k/mm3 (150-450); RED CELL DISTRIBUTION WIDTH 16.7 % (11.5-14.5); WHITE BLOOD COUNT 5.2 K/mm3 (4.0-10.0)
[2016-11-04 06:19] VITALS: BP 126/72
--- NOTE | 2016-11-04 06:33 | PHACANCOPD ---
PHARMACY VANCOMYCIN DOSING Pt Demographics Demographics Patient Age:81 , Weight:65.100 , Gender: male Adjusted Body Weight Date: 11/02/16, Adjusted Body Weight: [63] Kg Events Past 24 Hours Events Past 24 Hours: NO: Dialysis, Diuretic Therapy, Change in CrCl, Fever, Elevation in WBC, Pending Diagnostics, Pending Procedures, Other Vancomycin Vancomycin Target Ranges: 15-20 mcg/ml Vancomycin Load Y/N: No Load Dose Date Time Vancomycin Load Dose: Date: Time: Vancomycin Dose Date: 11/04/16. Current Vancomycin Dose: [1000MG Q18H] Intermittent Dosing?: No Labs Labs Item Value Date Time White Blood Count 5.2 K/mm3 11/04/16511 Creatinine 1.73 MG/DL H 11/04/16511 Blood Urea Nitrogen 39 MG/DL H 11/04/16511 Vancomycin Level Trough 11.6 UG/ML 11/04/16511 Vital Signs Label Value Date Time Patient Temperature 97.5 degrees F 11/04/16618 Temperature Source Temporal 11/04/16618 Micro Microbiology 11/02/16 Blood Culture - Preliminary, Resulted No Growth after 48 hours. All Specime... 11/02/16 Blood Culture - Preliminary, Resulted No Growth after 48 hours. All Specime... 11/02/16 Urine Culture - Preliminary, Resulted Escherichia Coli Creatinine Clearance Date:11/02/16. Creatinine Clearance: [23]. Pending Labs Trough 05-@1100 Assessment and Plan Maintaining Current Dose?: No Reason for dose change: Trough too low Pharmacist Note Pharmacist Note Date: 11/02/16. Pharmacist note:Trough of 11.6 is below target range. increased dose to 1000mg q18h with a trough ordered for 05 @1100. Will continue to monitor and make adjustments as needed. JALIL CHAVEZ PHARMACY November 04, 2016 06:33
[2016-11-04] MEDS: MIRALAX *UNIT DOSE* 17GM PACKET PO SCH (07:59)
[2016-11-04] MEDS: HumaLOG INSULIN (NovoLOG) PER UNIT SC SCH ×4 (07:59→20:54)
[2016-11-04] MEDS: SENOKOT S TAB PO SCH ×2 (08:00→20:52)
[2016-11-04] MEDS: LACTOBACILLUS ACIDOPHILUS CAP (BACID) PO SCH ×2 (08:00→20:51)
[2016-11-04] MEDS: OMEPRAZOLE 20 MG CAP PO SCH (08:00)
[2016-11-04] MEDS: CALCIUM/VITAMIN D 500 MG TAB PO SCH ×2 (08:00→20:52)
[2016-11-04] MEDS: CHLORHEXIDINE GLUCONATE 0.12 % 15ML UDC (PERIDEX ORAL RINSE) MT SCH ×2 (08:00→20:56)
[2016-11-04] MEDS: DOCUSATE SODIUM 100 MG CAP PO SCH ×2 (08:00→20:52)
[2016-11-04] MEDS: NS 1,000 ML IV SCH (08:01)
--- NOTE | 2016-11-04 09:28 | IPNPDOC ---
Subjective Date Seen The patient was seen on 11/04/16. Subjective Chief Complaint/HPI The patient is a 81-year-old male admitted with a reason for visit of Sepsis. Events since last encounter She was seen this morning at bedside. No acute overnight issues. He is a patient and does not offer any complaints. He responds no when asked about nausea, vomiting, abdominal pain, chest pain, shortness of breath. Patient ate breakfast this morning without any significant issues. Objective Physical Examination General Exam: Positive: Alert, Cooperative, No Acute Distress Eye Exam: Positive: PERRLA, Conjunctiva & lids normal, EOMI, Negative: Sclera icteric ENT Exam: Positive: Atraumatic, Mucous membr. moist/pink, Pharynx Normal Neck Exam: Positive: Supple, Negative: JVD, thyromegaly, Lymphadenopathy Chest Exam: Positive: Clear to auscultation, Normal air movement Heart Exam: Positive: Rate Normal, Regular Rhythm, Normal S1, Normal S2, Negative: Murmurs Abdomen Exam: Positive: Normal bowel sounds, Soft, Other (has urostomy in place draining clear urine), Negative: Tenderness, Hepatospenomegaly, Mass Extremity Exam: Positive: Normal pulses, Negative: Cyanosis, Edema, Tenderness Skin Exam: Positive: Nl turgor and temperature, Negative: Rash Neuro Exam: Positive: Cranial Nerves 3-12 NL, Negative: Normal Speech (has baseline intellectual disabilities) Psych Exam: Negative: Oriented x 3 (oreinted to person only, at baseline) Assessment /Plan Problems (1) Sepsis Status: Acute Problem Specific Plan: Monitor Clinically, Repeat Labs Problem Text: * Secondary to UTI * Vancomycin and Zosyn initiated on 11/02, discontinued today * Remain on normal saline * He is afebrile, blood pressure stable, normal white count, CRP continues to trend down * Urine culture was positive for Escherichia coli, blood cultures show no growth thus far * Will tailor antibiotics to Escherichia coli and initiate patient on ceftriaxone (2) UTI (urinary tract infection) Status: Acute Problem Specific Plan: Monitor Clinically Problem Text: * As above (3) Acute renal failure superimposed on chronic kidney disease Status: Acute Problem Specific Plan: Monitor Clinically, Repeat Labs Problem Text: * Improving * Continue normal saline * Monitor renal function and electrolytes (4) Anemia Status: Chronic Problem Specific Plan: Monitor Clinically, Repeat Labs Problem Text: * No signs of active bleeding * Iron found to be low * Will obtain stool occult * Monitor H/H (5) DM2 (diabetes mellitus, type 2) Status: Chronic Problem Specific Plan: Monitor Clinically, Repeat Tests Problem Text: * Insulin sliding scale with hypoglycemic protocol (6) GERD (gastroesophageal reflux disease) Status: Chronic Problem Specific Plan: Monitor Clinically Problem Text: * Continue Prilosec (7) CAD (coronary artery disease) Status: Chronic Problem Specific Plan: Monitor Clinically Problem Text: * Status post stent * He is on Pravachol, does not appear to be on ASA or BB (8) Chronic constipation Status: Chronic Problem Specific Plan: Monitor Clinically Problem Text: * Abdominal xray revealed dilated loops of small bowel with air and fecal material in the colon. 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, has urostomy in place (10) History of prostate cancer Status: Chronic Problem Text: * Status post prostatectomy (11) Depression Status: Chronic Problem Specific Plan: Monitor Clinically Problem Text: * Continue Paxil Plan/VTE VTE Prophylaxis Ordered?: Yes (TEDs and sequentials) VS, I&O, 24H, Fishbone Vital Signs/I&O Vital Signs Date Time Temp Pulse Resp B/P (MAP) Pulse Ox O2 Delivery O2 Flow Rate FiO2 11/04/16 06:19 97.5 66 17 126/72 (90) Room Air 11/03/16 22:00 96 11/03/16 21:58 2.0 I&O- Last 24 Hours up to 6 AM 11/04/16 06:00 Intake Total 2820 ml Output Total 3025 ml Balance -205 ml Laboratory Data CBC/BMP Laboratory Tests 11/04/16 05:12 Red Blood Count 2.88 L, Mean Corpuscular Volume 83.0, Mean Corpuscular Hemoglobin 25.2 L, Mean Corpuscular Hemoglobin Concent 30.4 L, Red Cell Distribution Width 16.7 H, Neutrophils (%) (Auto) 74.1 H, Lymphocytes (%) (Auto ) 9.2 L, Monocytes (%) (Auto) 5.6 H, Eosinophils (%) (Auto) 7.1 H, Basophils (% ) (Auto) 0.2, Neutrophils # (Auto) 3.9, Lymphocytes # (Auto) 0.5 L, Monocytes # (Auto) 0.3, Eosinophils # (Auto) 0.4, Basophils # (Auto) 0.0, Calcium Level 7.6 L Microbiology Microbiology 11/02/16 Blood Culture - Preliminary, Resulted No Growth after 48 hours. All Specime... 11/02/16 Blood Culture - Preliminary, Resulted No Growth after 48 hours. All Specime... 11/02/16 Urine Culture - Preliminary, Resulted Escherichia Coli GME ATTESTATION GME ATTESTATION My preceptor for this patient encounter was physically present in the building during the encounter and was fully available. As needed, all aspects of the patient interview, examination, medical decision making process, and medical care plan development were reviewed and approved by the preceptor. Preceptor is aware and concurs with the plan as stated in the body of this note and will attest to such by his/her cosignature. LUIS ALBERTO CARDONA DO November 04, 2016 09:28
[2016-11-04] MEDS ORDERED: FLEET OIL RETENTION ENEMA PR ONE (10:00)
[2016-11-04] MEDS: cefTRIAXone SOD 1 GM in D5W MINI-BAG PLUS 50 ML IV SCH (12:21)
[2016-11-04 14:00] VITALS: BP 127/59
[2016-11-04] MEDS: QUEtiapine FUMARATE **XR** 200MG TABLET PO SCH (17:22)
[2016-11-04] MEDS: PRAVASTATIN 20 MG TAB PO SCH (20:51)
[2016-11-04] MEDS: PARoxetine 20 MG TAB PO SCH (20:54)
[2016-11-04] MEDS ORDERED: CARBAMIDE PEROXIDE 6.5% OTIC SOLN 15ML AU SCH (21:00)
[2016-11-05] MEDS ORDERED: VANCOMYCIN HCL 1,000 MG, VIAL MATE ADAPTER 1 EACH in D5W 250 ML IV SCH ×3
[2016-11-05 05:28] VITALS: BP_SYST 102; BP_SYST 105; BP_SYST 111; BP_DIAS 57; BP_DIAS 61; BP_DIAS 62
[2016-11-05 05:29] VITALS: BP 105/57
[2016-11-05 06:24] LABS: CALCIUM LEVEL 8.4 MG/DL (8.8-10.2); CREATININE FOR GFR 1.68 MG/DL (0.70-1.30); GLOMERULAR FILTRATION RATE 41.7 (>35); POTASSIUM SERUM 3.9 MEQ/L (3.5-5.1)
[2016-11-05 06:25] LABS: BASO % 0.2 % (0.0-1.0); EOS # 0.4 K/mm3 (0.0-0.50); EOS % 9.5 % (0.0-3.0); LARGE UNSTAINED CELL # 0.2 K/mm3 (0.0-0.4); LARGE UNSTAINED CELL % 4.4 % (0.0-4.0); LYMPH # 0.7 K/mm3 (1.5-4.5); LYMPH % 14.8 % (24.0-44.0); MEAN CORPUSCULAR HEMOGLOBIN 25.1 pg (27.0-33.0); MEAN CORPUSCULAR HGB CONC 30.3 g/dl (32.0-36.5); MEAN CORPUSCULAR VOLUME 82.8 fl (80.0-96.0); MONO # 0.3 K/mm3 (0.0-0.8); MONO % 6.9 % (0.0-5.0); NEUTROPHILS % 64.2 % (36.0-66.0); PLATELET COUNT, AUTOMATED 199 k/mm3 (150-450); RED CELL DISTRIBUTION WIDTH 16.9 % (11.5-14.5); WHITE BLOOD COUNT 4.6 K/mm3 (4.0-10.0)
[2016-11-05] MEDS: HumaLOG INSULIN (NovoLOG) PER UNIT SC SCH ×4 (08:46→20:46)
[2016-11-05] MEDS: MIRALAX *UNIT DOSE* 17GM PACKET PO SCH (08:47)
[2016-11-05] MEDS: CALCIUM/VITAMIN D 500 MG TAB PO SCH ×2 (08:47→21:19)
[2016-11-05] MEDS: DOCUSATE SODIUM 100 MG CAP PO SCH ×2 (08:47→21:19)
[2016-11-05] MEDS: OMEPRAZOLE 20 MG CAP PO SCH (08:47)
[2016-11-05] MEDS: SENOKOT S TAB PO SCH ×2 (08:47→21:19)
[2016-11-05] MEDS: CHLORHEXIDINE GLUCONATE 0.12 % 15ML UDC (PERIDEX ORAL RINSE) MT SCH ×2 (08:47→21:31)
[2016-11-05] MEDS: LACTOBACILLUS ACIDOPHILUS CAP (BACID) PO SCH ×2 (08:47→21:19)
[2016-11-05] MEDS: cefTRIAXone SOD 1 GM in D5W MINI-BAG PLUS 50 ML IV SCH (11:16)
[2016-11-05 14:00] VITALS: BP 123/66
--- NOTE | 2016-11-05 16:23 | IPN ---
DATE: 11/05/2016 SUBJECTIVE: The patient is seen and examined in the room today. The patient is more awake and alert. The patient stated he has good oral intake. No overnight events are reported. OBJECTIVE: VITAL SIGNS: Temperature 97.7, pulse 62, respirations 16, blood pressure 105/57. Pulse oximetry 96% on room air. GENERAL: The patient is alert and awake. The patient has the sign of mental retardation. HEENT: Normocephalic, atraumatic. Extraocular motor grossly intact. CARDIOVASCULAR: Positive S1, S2. Regular rate. LUNGS: Clear to auscultation bilaterally. ABDOMEN: Urinary ostomy bag located toward the left abdomen. Clean urine noted inside the ostomy. Abdomen is soft, nontender. EXTREMITIES: No edema. No sign of cyanosis. LABORATORY DATA: WBC is 4.6, hemoglobin 7, hematocrit 33.2, platelet count 199. Sodium is 140, potassium 3.9, chloride 109, carbon dioxide 26, BUN 33, creatinine 1.68. GFR is 41.7, fasting glucose 216, calcium 8.4. C-reactive protein is 5.43. ASSESSMENT AND PLAN: 1. Sepsis from urinary tract infection (UTI). Culture came back positive for Escherichia (E.) coli. Initially the patient was on vancomycin prior to urine culture result. The patient has a history of methicillin-resistant Staphylococcus aureus (MRSA). Now the patient is started on Rocephin based the culture and sensitivities. The patient vitals have been in the satisfactory range. The patient's mentation is improving. 2. Urinary tract infection from E. coli. 3. Acute on chronic kidney disease possibly from the sepsis. The patient's renal function is improving. The patient is now orthostatic. Due to history of congestive heart failure, we will be very cautious with the patient's fluid. 4. Grade 2 diastolic congestive heart failure. No sign of overload at this moment. 5. Metastatic urethral cancer, status post radical cystectomy with intracorporeal ileal conduit urinary diversion. Urostomy in place. 6. History of prostate cancer, status post prostatectomy. 7. Diabetes, on sliding scale. 8. Gastroesophageal reflux disease. The patient is on omeprazole. 9. Anxiety/depression. The patient is on Paxil and Seroquel. 10. Anemia. The patient has acute decrease of hemoglobin and hematocrit. We will follow with stool occult. Today I called the patient's niece who is the patient's guardian. Her name is Mrs. Aurea Smith, phone number [phone]. Verbal consent was obtained and the patient will have two packed red blood cells transfusions. 11. History of coronary artery disease, status post stent, and patient on statin. 12. Chronic constipation. Bowel regimen in place. 13. Deep venous thrombosis (DVT) prophylaxis. On thromboembolism deterrent stockings (TEDs) and sequential compression devices.
[2016-11-05] MEDS: QUEtiapine FUMARATE **XR** 200MG TABLET PO SCH (18:19)
[2016-11-05] MEDS: PARoxetine 20 MG TAB PO SCH (21:19)
[2016-11-05] MEDS: PRAVASTATIN 20 MG TAB PO SCH (21:19)
[2016-11-05 22:00] VITALS: BP 123/64
[2016-11-06 05:52] LABS: BASO % 0.6 % (0.0-1.0); EOS # 0.4 K/mm3 (0.0-0.50); EOS % 7.7 % (0.0-3.0); LARGE UNSTAINED CELL # 0.2 K/mm3 (0.0-0.4); LARGE UNSTAINED CELL % 4.5 % (0.0-4.0); LYMPH % 20.5 % (24.0-44.0); MEAN CORPUSCULAR HEMOGLOBIN 25.7 pg (27.0-33.0); MEAN CORPUSCULAR HGB CONC 31.2 g/dl (32.0-36.5); MEAN CORPUSCULAR VOLUME 82.3 fl (80.0-96.0); MONO # 0.3 K/mm3 (0.0-0.8); MONO % 5.7 % (0.0-5.0); NEUTROPHILS # 2.8 K/mm3 (1.8-7.7); PLATELET COUNT, AUTOMATED 220 k/mm3 (150-450); RED CELL DISTRIBUTION WIDTH 16.4 % (11.5-14.5); WHITE BLOOD COUNT 4.6 K/mm3 (4.0-10.0)
[2016-11-06 06:13] LABS: CALCIUM LEVEL 8.5 MG/DL (8.8-10.2); CREATININE FOR GFR 1.67 MG/DL (0.70-1.30); POTASSIUM SERUM 4.2 MEQ/L (3.5-5.1)
[2016-11-06] MEDS: MIRALAX *UNIT DOSE* 17GM PACKET PO SCH (08:23)
[2016-11-06] MEDS: HumaLOG INSULIN (NovoLOG) PER UNIT SC SCH (08:23)
[2016-11-06] MEDS: CALCIUM/VITAMIN D 500 MG TAB PO SCH (08:23)
[2016-11-06] MEDS: LACTOBACILLUS ACIDOPHILUS CAP (BACID) PO SCH (08:23)
[2016-11-06] MEDS: DOCUSATE SODIUM 100 MG CAP PO SCH (08:23)
[2016-11-06] MEDS: SENOKOT S TAB PO SCH (08:23)
[2016-11-06] MEDS: OMEPRAZOLE 20 MG CAP PO SCH (08:23)
[2016-11-06] MEDS: CHLORHEXIDINE GLUCONATE 0.12 % 15ML UDC (PERIDEX ORAL RINSE) MT SCH (08:27)
[2016-11-06] MEDS ORDERED: CEFD1CAP8 PO (10:02)
[2016-11-06] MEDS: cefTRIAXone SOD 1 GM in D5W MINI-BAG PLUS 50 ML IV SCH (11:00)
--- NOTE | 2016-11-06 15:06 | DSES ---
DATE OF ADMISSION: 11/02/2016 DATE OF DISCHARGE: 11/06/2016 PRIMARY CARE PROVIDER: Sterling Marcelino MD RESIDENCY: The patient is from [facility] ([facility]). CONSULTANTS: None. PROCEDURES: None. COMPLICATIONS: None. ADMISSION/DISCHARGE DIAGNOSES: 1. Sepsis from urinary tract infection (UTI). 2. Urinary tract infection (UTI) from Escherichia (E) coli. 3. E coli, Enterococcus faecalis, and Streptococcus anginosus. 4. Mental retardation. 5. Acute on chronic kidney disease from sepsis. 6. Grade 2 diastolic congestive heart failure (CHF). 7. Urethral cancer, status post radical cystectomy with intracorporal ileoconduit urinary diversion. 8. History of prostate cancer, status post prostatectomy. 9. Diabetes. 10. Gastroesophageal reflux disease (GERD). 11. Anxiety/depression. 12. Anemia. 13. History of coronary artery disease. 14. Chronic constipation. HOSPITALIZATION COURSE: The patient is an 81-year-old male who was sent in from [facility] ([facility]) to [facility] on 11/02/2016 for worsening mental status and decreased activity level. The patient was found to have sepsis. The patient was started on empiric antibiotics. The patient was admitted to the progressive care unit (PCU). The patient was started on IV resuscitation. Initially, urine culture showed contamination due to the presence of multiple organisms. The lab had to rerun the samples. When the sensitivity was available, the patient's antibiotic was switched to Rocephin. With continued medical management, the patient's fever resolved and the patient's blood pressure is stabilized. The patient's mentation started to improve. On 11/06/2016, the patient is cleared by physical therapy (PT) and the patient is discharged home with recommendation to finish the course of antibiotic treatment for his urinary tract infection (UTI). The patient is recommended to followup with primary care provider within 1 week. During the hospitalization stay, the patient actually had an episode of severe anemia. Hemoglobin decreased to 7 with a hematocrit of 23.2. Hemoccult test was negative. The patient's guardian, the patient's niece, Mrs. Aurea Smith, was contacted. Verbal consent was obtained with a witness. Two packed red blood cell transfusion was given to the patient. Later, the patient still did not show any signs of acute bleeding and hemoglobin and hematocrit stabilized. OBJECTIVE: VITAL SIGNS: Temperature is 98.6, pulse is 62, respiration rate is 16, blood pressure is 123/74. Pulse oximetry is 96% on room air. WBC 4.6, hemoglobin is 8.6 hematocrit 27.5, platelet count is 220. Sodium is 137, potassium 4.2, chloride is 107, carbon dioxide 25, BUN 33, creatinine 1.67, GFR is 42 with a fasting glucose of 191, calcium is 8.5, C-reactive protein is 3.2 (C-reactive protein was 14.2 on the day of admission). Microbiology: Blood culture is negative after 72 hours times two sets. Urine culture showed E coli, Enterococcus faecalis and Streptococcus anginosus. Stool occult blood test is negative. IMAGING STUDIES: Chest x-ray showed chronic stable changes. Subtle superimposed bibasilar atelectasis cannot be excluded. Abdominal x-ray showed dilated loops of small bowel with air and fecal matter in the colon. DISCHARGE MEDICATIONS: - Cefdinir 300 mg by mouth twice a day for 3 days - Tylenol 650 mg by mouth every 4 hours as needed for fever or mild pain - Amaryl 2 mg by mouth in the morning - bisacodyl 10 mg daily as needed for constipation - Calcium/vitamin D supplement one tablet by mouth twice a day - Debrox one drop both eyes twice a week - Peridex 10 mL mouthwash twice a day - Colace 100 mg by mouth twice a day - Bacid one tablet by mouth twice a day - milk of magnesia 30 mL by mouth daily as needed for constipation - Paxil 60 mg by mouth at night - MiraLAX 17 grams by mouth in the morning - pravastatin 40 mg by mouth at night - Seroquel 200 mg by mouth daily - [place] plus one tablet by mouth twice a day DISCHARGE INSTRUCTIONS: Discontinue line. Discharge home. Activity as tolerated. Consistent carbohydrate diet as tolerated. The patient will be on 1.8 liter of fluid restriction. The patient should follow with the primary care provider, Dr. Sterling Marcelino, within one week. Discharge time is greater than 30 minutes. Discharge condition is stable.
== END 2016-11-06 12:14 | disposition home or self-care (01) | DRG 872 ==
LOC: EDBD 00:19 → M ED 01:24 → M ED INP 03:46 → M PCU 14:06 → M MSPAV 11-03 14:37
PROVIDERS: ADMIT Internal Medicine; ATTEND Internal Medicine
PROC: 30233N1 Transfusion of Nonautologous Red Blood Cells into Peripheral Vein, Percutaneous Approach (ICD-10-PCS; principal; 2016-11-05)
DX: A41.9 Sepsis, unspecified organism (principal); N17.9 Acute kidney failure, unspecified; N39.0 Urinary tract infection, site not specified; I50.32 Chronic diastolic (congestive) heart failure; I13.0 Hypertensive heart and chronic kidney disease with heart failure and stage 1 through stage 4 chronic kidney disease, or unspecified chronic kidney disease; B96.29 Other Escherichia coli [E. coli] as the cause of diseases classified elsewhere; E11.9 Type 2 diabetes mellitus without complications; K21.9 Gastro-esophageal reflux disease without esophagitis; I25.10 Atherosclerotic heart disease of native coronary artery without angina pectoris; K59.00 Constipation, unspecified; F41.9 Anxiety disorder, unspecified; F32.9 Major depressive disorder, single episode, unspecified; Z85.46 Personal history of malignant neoplasm of prostate; D64.9 Anemia, unspecified; Z79.899 Other long term (current) drug therapy; G47.00 Insomnia, unspecified; I25.2 Old myocardial infarction; K44.9 Diaphragmatic hernia without obstruction or gangrene; N18.9 Chronic kidney disease, unspecified

== ENCOUNTER → 2016-11-15 | Outpatient (CLI) | payer MEDICARE, MEDICAID ==
[~2016-11-15] MED LIST changes: +ALBU83IN INH; +CEFD1CAP8 PO; +CEPH500T PO; +GLIM2TA PO; +KEFL500C7 PO; +OMEP10CASR PO; +OMEP20CA3 PO; +OS-CCHW2 PO; +PAXI20TA3 PO; +PAXI40TA2 PO; +TYLE325T5 PO
[2016-11-15 19:51] LABS: CALCIUM LEVEL 8.9 MG/DL (8.8-10.2); CREATININE FOR GFR 1.78 MG/DL (0.70-1.30); GLOMERULAR FILTRATION RATE 39.1 (>35); POTASSIUM SERUM 4.9 MEQ/L (3.5-5.1)
[2016-11-15 20:24] LABS: MEAN CORPUSCULAR HGB CONC 30.6 g/dl (32.0-36.5); MEAN CORPUSCULAR VOLUME 85.1 fl (80.0-96.0); RED CELL DISTRIBUTION WIDTH 16.9 % (11.5-14.5); WHITE BLOOD COUNT 6.5 K/mm3 (4.0-10.0)
== END ==
LOC: M WUC 15:54
PROVIDERS: ATTEND Urology
DX: Z90.6 Acquired absence of other parts of urinary tract (principal)

== ENCOUNTER 2016-11-24 11:17 | Emergency (ER) | payer MEDICARE, MEDICAID ==
[~2016-11-24] VITALS: Ht 167.6 cm; Wt 63.9 kg
[~2016-11-24 11:17] MED LIST changes: -ALBU83IN INH; -CEPH500T PO; -GLIM2TA PO; -KEFL500C7 PO; -OMEP10CASR PO; -OMEP20CA3 PO; -OS-CCHW2 PO
[2016-11-24] MEDS ORDERED: NS 1,000 ML IV ONE (11:30)
[2016-11-24] MEDS ORDERED: PERI0.126 MT (11:38)
[2016-11-24] MEDS ORDERED: ALBU83IN INH (11:38)
[2016-11-24] MEDS ORDERED: OS-CCHW2 PO (11:38)
[2016-11-24] MEDS ORDERED: DEBR6.5S4 AU (11:38)
[2016-11-24] MEDS ORDERED: OMEP10CASR PO (11:38)
[2016-11-24 12:10] LABS: BASO % 0.2 % (0.0-1.0); EOS % 0.1 % (0.0-3.0); LARGE UNSTAINED CELL # 0.2 K/mm3 (0.0-0.4); LARGE UNSTAINED CELL % 1.6 % (0.0-4.0); LYMPH # 0.7 K/mm3 (1.5-4.5); LYMPH % 5.2 % (24.0-44.0); MEAN CORPUSCULAR HGB CONC 30.7 g/dl (32.0-36.5); MONO # 0.6 K/mm3 (0.0-0.8); NEUTROPHILS # 8.4 K/mm3 (1.8-7.7); NEUTROPHILS % 86.9 % (36.0-66.0); PLATELET COUNT, AUTOMATED 164 k/mm3 (150-450); RED CELL DISTRIBUTION WIDTH 17.9 % (11.5-14.5); WHITE BLOOD COUNT 9.7 K/mm3 (4.0-10.0)
[2016-11-24 12:38] LABS: CALCIUM LEVEL 8.7 MG/DL (8.8-10.2); CREATININE FOR GFR 2.26 MG/DL (0.70-1.30); GLOMERULAR FILTRATION RATE 29.6 (>35); POTASSIUM SERUM 5.1 MEQ/L (3.5-5.1)
[2016-11-24] MEDS ORDERED: cefTRIAXone SOD 1 GM in D5W MINI-BAG PLUS 50 ML IV ONE (13:30)
[2016-11-24] MEDS ORDERED: HumuLIN R (REGULAR) INSULIN (NovoLIN R) **100U/ML** PER UNIT IV ONE (13:30)
[2016-11-24] MEDS ORDERED: KEFL500C7 PO (15:47)
[2016-11-24 15:58] VITALS: BP 103/63
[2016-11-25] MEDS ORDERED: GLIM2TA PO (17:18)
[2016-11-25] MEDS ORDERED: BACITAB3 PO (17:19)
[2016-11-25] MEDS ORDERED: OMEP20CA3 PO (17:27)
[2016-11-25] MEDS ORDERED: CEPH500T PO (17:45)
== END 2016-11-24 16:00 | disposition home or self-care (01) ==
LOC: M ED 11:34
DX: E11.65 Type 2 diabetes mellitus with hyperglycemia (principal); N39.0 Urinary tract infection, site not specified; N40.1 Benign prostatic hyperplasia with lower urinary tract symptoms; E78.00 Pure hypercholesterolemia, unspecified; K21.9 Gastro-esophageal reflux disease without esophagitis; Z90.79 Acquired absence of other genital organ(s); Z79.899 Other long term (current) drug therapy; Z91.09 Other allergy status, other than to drugs and biological substances; Z91.040 Latex allergy status

== ENCOUNTER 2016-11-25 13:21 | Inpatient (IN) | payer MEDICARE, MEDICAID ==
[~2016-11-25] VITALS: Ht 170.2 cm; Wt 64.5 kg
[~2016-11-25 13:21] MED LIST changes: +ALBU83IN INH; +KEFL500C7 PO; +OMEP10CASR PO; +OS-CCHW2 PO
[2016-11-25] MEDS ORDERED: NS 1,000 ML IV ONE (14:15)
[2016-11-25 14:42] LABS: ABG BASE EXCESS -2.2 (-2.0-2.0); ABG HCO3 21.7 MEQ/L (22.0-26.0); ABG PARTIAL PRESSURE CO2 34.1 mmHg (35.0-45.0); ABG STANDARD HCO3 22.6 MEQ/L (22.0-26.0); ABG TOTAL CO2 22.8 MEQ/L (23.0-31.0); ABG pH (ARTERIAL) 7.422 UNITS (7.350-7.450)
[2016-11-25 15:41] LABS: BASO % 0.4 % (0.0-1.0); EOS # 0.2 K/mm3 (0.0-0.50); LARGE UNSTAINED CELL # 0.2 K/mm3 (0.0-0.4); LARGE UNSTAINED CELL % 2.6 % (0.0-4.0); LYMPH # 0.9 K/mm3 (1.5-4.5); LYMPH % 12.2 % (24.0-44.0); MEAN CORPUSCULAR HGB CONC 31.6 g/dl (32.0-36.5); MEAN CORPUSCULAR VOLUME 85.7 fl (80.0-96.0); MONO # 0.4 K/mm3 (0.0-0.8); MONO % 6.8 % (0.0-5.0); NEUTROPHILS # 4.7 K/mm3 (1.8-7.7); NEUTROPHILS % 75.1 % (36.0-66.0); PLATELET COUNT, AUTOMATED 176 k/mm3 (150-450); RED CELL DISTRIBUTION WIDTH 18.1 % (11.5-14.5); WHITE BLOOD COUNT 6.3 K/mm3 (4.0-10.0)
[2016-11-25 16:04] LABS: ALBUMIN 2.7 GM/DL (3.2-5.2); ALBUMIN/GLOBULIN RATIO 0.66 (1.00-1.93); ALKALINE PHOSPHATASE 85 U/L (45-117); ALT/SGPT 10 U/L (12-78); ANION GAP 7 MEQ/L (8-16); AST/SGOT 6 U/L (15-37); BILIRUBIN,DIRECT < 0.1 MG/DL (0.0-0.2); BILIRUBIN,TOTAL 0.2 MG/DL (0.2-1.0); BLOOD UREA NITROGEN 50 MG/DL (7-18); CALCIUM LEVEL 8.8 MG/DL (8.8-10.2); CARBON DIOXIDE LEVEL 27 MEQ/L (21-32); CHLORIDE LEVEL 101 MEQ/L (98-107); CREATININE FOR GFR 2.08 MG/DL (0.70-1.30); GLOMERULAR FILTRATION RATE 32.6 (>35); GLUCOSE, FASTING 339 MG/DL (83-110); MAGNESIUM LEVEL 1.9 MG/DL (1.8-2.4); POTASSIUM SERUM 4.6 MEQ/L (3.5-5.1); SODIUM LEVEL 135 MEQ/L (136-145); TOTAL PROTEIN 6.8 GM/DL (6.4-8.2)
[2016-11-25] MEDS ORDERED: cefTRIAXone SOD 1 GM in D5W MINI-BAG PLUS 50 ML IV ONE (16:30)
[2016-11-25] MEDS ORDERED: GLIM2TA PO (17:18)
[2016-11-25] MEDS ORDERED: BACITAB3 PO (17:19)
[2016-11-25] MEDS ORDERED: OMEP20CA3 PO (17:27)
[2016-11-25] MEDS ORDERED: ACETAMINOPHEN TAB 650MG DOSE (2X325MG) PO PRN (17:45)
[2016-11-25] MEDS ORDERED: GLUCAGON FOR INJ 1 MG VIAL (J1610) SC PRN (17:45)
[2016-11-25] MEDS ORDERED: DEXTROSE 50% 50 ML SYRINGE IV PRN (17:45)
[2016-11-25] MEDS ORDERED: ONDANSETRON 4MG/2ML VIAL (J2405) IV PRN (17:45)
[2016-11-25] MEDS ORDERED: CEPH500T PO (17:45)
[2016-11-25] MEDS ORDERED: BISACODYL 10 MG SUPP PR PRN (17:45)
[2016-11-25] MEDS ORDERED: MOM 30ML SUSPENSION UDC PO PRN (17:45)
[2016-11-25] MEDS ORDERED: GLUCOSE 4 GM CHEW TABLET PO PRN (17:45)
[2016-11-25 20:20] VITALS: BP 126/72
[2016-11-25] MEDS ORDERED: PARoxetine 20 MG TAB PO SCH (21:00)
[2016-11-25] MEDS ORDERED: LEVEMIR (INSULIN DETEMIR) 1 UNITS/0.01ML SC SCH (21:00)
[2016-11-25 22:00] VITALS: BP 143/69
[2016-11-25] MEDS: CHLORHEXIDINE GLUCONATE 0.12 % 15ML UDC (PERIDEX ORAL RINSE) MT SCH (22:02)
[2016-11-25] MEDS: DOCUSATE SODIUM 100 MG CAP PO SCH (22:02)
[2016-11-25] MEDS: PRAVASTATIN 20 MG TAB PO SCH (22:02)
[2016-11-25] MEDS: SENOKOT S TAB PO SCH (22:03)
[2016-11-25] MEDS: PARoxetine 20 MG TAB PO SCH (22:03)
[2016-11-25] MEDS: HEPARIN SOD (PORCINE) 5000 UNITS/ML VIAL SC SCH (22:03)
[2016-11-25] MEDS: HumaLOG INSULIN (NovoLOG) PER UNIT SC SCH (22:04)
[2016-11-26 06:00] VITALS: BP 126/75
[2016-11-26 06:22] LABS: MEAN CORPUSCULAR HEMOGLOBIN 26.7 pg (27.0-33.0); MEAN CORPUSCULAR HGB CONC 31.3 g/dl (32.0-36.5); MEAN CORPUSCULAR VOLUME 85.2 fl (80.0-96.0); RED CELL DISTRIBUTION WIDTH 18.1 % (11.5-14.5); WHITE BLOOD COUNT 5.6 K/mm3 (4.0-10.0)
[2016-11-26 06:49] LABS: ALBUMIN 2.6 GM/DL (3.2-5.2); ALBUMIN/GLOBULIN RATIO 0.6 (1.00-1.93); BILIRUBIN,TOTAL 0.2 MG/DL (0.2-1.0); CALCIUM LEVEL 8.8 MG/DL (8.8-10.2); CREATININE FOR GFR 1.75 MG/DL (0.70-1.30); GLOMERULAR FILTRATION RATE 39.8 (>35); MAGNESIUM LEVEL 1.9 MG/DL (1.8-2.4); TOTAL PROTEIN 6.9 GM/DL (6.4-8.2)
[2016-11-26] MEDS: glipiZIDE (GLUCOTROL) 5 MG TAB PO SCH ×2 (07:30→17:18)
[2016-11-26] MEDS: LEVEMIR (INSULIN DETEMIR) 1 UNITS/0.01ML SC SCH ×2 (08:38→22:20)
[2016-11-26] MEDS: CHLORHEXIDINE GLUCONATE 0.12 % 15ML UDC (PERIDEX ORAL RINSE) MT SCH ×2 (08:43→22:19)
[2016-11-26] MEDS: SENOKOT S TAB PO SCH ×2 (08:44→22:19)
[2016-11-26] MEDS: HumaLOG INSULIN (NovoLOG) PER UNIT SC SCH ×4 (08:44→21:00)
[2016-11-26] MEDS: OMEPRAZOLE 20 MG CAP PO SCH (08:44)
[2016-11-26] MEDS: MIRALAX *UNIT DOSE* 17GM PACKET PO SCH (08:44)
[2016-11-26] MEDS: DOCUSATE SODIUM 100 MG CAP PO SCH ×2 (08:44→22:19)
[2016-11-26] MEDS: HEPARIN SOD (PORCINE) 5000 UNITS/ML VIAL SC SCH ×2 (08:45→22:20)
[2016-11-26 14:00] VITALS: BP 130/71
[2016-11-26] MEDS: QUEtiapine FUMARATE **XR** 200MG TABLET PO SCH (17:19)
[2016-11-26 22:00] VITALS: BP 136/70
[2016-11-26] MEDS: PARoxetine 20 MG TAB PO SCH (22:19)
[2016-11-26] MEDS: PRAVASTATIN 20 MG TAB PO SCH (22:19)
[2016-11-27 06:00] VITALS: BP 139/74
[2016-11-27 06:03] LABS: MEAN CORPUSCULAR HEMOGLOBIN 26.6 pg (27.0-33.0); MEAN CORPUSCULAR HGB CONC 31.2 g/dl (32.0-36.5); MEAN CORPUSCULAR VOLUME 85.3 fl (80.0-96.0); RED CELL DISTRIBUTION WIDTH 18.1 % (11.5-14.5); WHITE BLOOD COUNT 4.2 K/mm3 (4.0-10.0)
[2016-11-27 06:34] LABS: ALBUMIN 2.6 GM/DL (3.2-5.2); ALBUMIN/GLOBULIN RATIO 0.63 (1.00-1.93); BILIRUBIN,TOTAL 0.3 MG/DL (0.2-1.0); CALCIUM LEVEL 8.5 MG/DL (8.8-10.2); CREATININE FOR GFR 1.67 MG/DL (0.70-1.30); MAGNESIUM LEVEL 2.1 MG/DL (1.8-2.4); TOTAL PROTEIN 6.7 GM/DL (6.4-8.2)
[2016-11-27] MEDS: CHLORHEXIDINE GLUCONATE 0.12 % 15ML UDC (PERIDEX ORAL RINSE) MT SCH ×2 (08:18→20:09)
[2016-11-27] MEDS: glipiZIDE (GLUCOTROL) 5 MG TAB PO SCH ×2 (08:19→17:16)
[2016-11-27] MEDS: OMEPRAZOLE 20 MG CAP PO SCH (08:19)
[2016-11-27] MEDS: HEPARIN SOD (PORCINE) 5000 UNITS/ML VIAL SC SCH ×2 (08:19→20:10)
[2016-11-27] MEDS: HumaLOG INSULIN (NovoLOG) PER UNIT SC SCH ×4 (08:19→20:56)
[2016-11-27] MEDS: MIRALAX *UNIT DOSE* 17GM PACKET PO SCH (08:20)
[2016-11-27] MEDS: LEVEMIR (INSULIN DETEMIR) 1 UNITS/0.01ML SC SCH ×2 (08:20→20:55)
[2016-11-27] MEDS: SENOKOT S TAB PO SCH ×2 (08:20→20:10)
[2016-11-27] MEDS: DOCUSATE SODIUM 100 MG CAP PO SCH ×2 (08:20→20:10)
[2016-11-27] MEDS ORDERED: MIRALAX *UNIT DOSE* 17GM PACKET PO PRN (08:30)
[2016-11-27] MEDS ORDERED: MOM 30ML SUSPENSION UDC PO PRN (08:30)
[2016-11-27] MEDS ORDERED: FLEET ENEMA PR PRN (08:30)
[2016-11-27] MEDS ORDERED: MOM 30ML SUSPENSION UDC PO ONE (08:45)
[2016-11-27 09:45] VITALS: BP 120/60
[2016-11-27] MEDS ORDERED: FUROSEMIDE 20 MG/2 ML VIAL (J1940) As Ordered ONE (13:49)
[2016-11-27 14:00] VITALS: BP 116/65
[2016-11-27] MEDS: QUEtiapine FUMARATE **XR** 200MG TABLET PO SCH (17:16)
[2016-11-27] MEDS: PRAVASTATIN 20 MG TAB PO SCH (20:10)
[2016-11-27] MEDS: PARoxetine 20 MG TAB PO SCH (20:10)
[2016-11-27 22:00] VITALS: BP 131/88
[2016-11-28 05:57] LABS: MEAN CORPUSCULAR HEMOGLOBIN 26.6 pg (27.0-33.0); MEAN CORPUSCULAR VOLUME 85.7 fl (80.0-96.0); WHITE BLOOD COUNT 4.2 K/mm3 (4.0-10.0)
[2016-11-28 06:00] VITALS: BP 110/83
[2016-11-28 06:35] LABS: ALBUMIN 2.7 GM/DL (3.2-5.2); ALBUMIN/GLOBULIN RATIO 0.6 (1.00-1.93); BILIRUBIN,TOTAL 0.3 MG/DL (0.2-1.0); CALCIUM LEVEL 8.5 MG/DL (8.8-10.2); CREATININE FOR GFR 1.63 MG/DL (0.70-1.30); GLOMERULAR FILTRATION RATE 43.2 (>35); MAGNESIUM LEVEL 2.4 MG/DL (1.8-2.4); POTASSIUM SERUM 4.3 MEQ/L (3.5-5.1); TOTAL PROTEIN 7.2 GM/DL (6.4-8.2)
[2016-11-28] MEDS: glipiZIDE (GLUCOTROL) 5 MG TAB PO SCH ×2 (07:30→16:59)
[2016-11-28] MEDS: HumaLOG INSULIN (NovoLOG) PER UNIT SC SCH ×4 (07:30→20:39)
[2016-11-28] MEDS: LEVEMIR (INSULIN DETEMIR) 1 UNITS/0.01ML SC SCH ×2 (09:00→20:39)
[2016-11-28] MEDS: MIRALAX *UNIT DOSE* 17GM PACKET PO SCH (09:11)
[2016-11-28] MEDS: CHLORHEXIDINE GLUCONATE 0.12 % 15ML UDC (PERIDEX ORAL RINSE) MT SCH ×2 (09:11→20:39)
[2016-11-28] MEDS: DOCUSATE SODIUM 100 MG CAP PO SCH ×2 (09:11→20:39)
[2016-11-28] MEDS: OMEPRAZOLE 20 MG CAP PO SCH (09:11)
[2016-11-28] MEDS: SENOKOT S TAB PO SCH ×2 (09:11→20:39)
[2016-11-28] MEDS: HEPARIN SOD (PORCINE) 5000 UNITS/ML VIAL SC SCH ×2 (09:11→20:39)
[2016-11-28] MEDS: NS 1,000 ML IV SCH (10:56)
[2016-11-28 14:00] VITALS: BP 113/65
[2016-11-28] MEDS: QUEtiapine FUMARATE **XR** 200MG TABLET PO SCH (16:59)
[2016-11-28] MEDS: PRAVASTATIN 20 MG TAB PO SCH (20:39)
[2016-11-28] MEDS: PARoxetine 20 MG TAB PO SCH (20:40)
[2016-11-28 22:00] VITALS: BP 113/61
[2016-11-29] MEDS: NS 1,000 ML IV SCH (03:00)
[2016-11-29 06:00] VITALS: BP 114/60
[2016-11-29 06:13] LABS: MEAN CORPUSCULAR HEMOGLOBIN 27.1 pg (27.0-33.0); MEAN CORPUSCULAR HGB CONC 31.8 g/dl (32.0-36.5); MEAN CORPUSCULAR VOLUME 85.3 fl (80.0-96.0); RED CELL DISTRIBUTION WIDTH 17.6 % (11.5-14.5)
[2016-11-29 06:28] LABS: ALBUMIN 2.7 GM/DL (3.2-5.2); ALBUMIN/GLOBULIN RATIO 0.66 (1.00-1.93); BILIRUBIN,TOTAL 0.2 MG/DL (0.2-1.0); CALCIUM LEVEL 8.4 MG/DL (8.8-10.2); CREATININE FOR GFR 1.48 MG/DL (0.70-1.30); GLOMERULAR FILTRATION RATE 48.3 (>35); MAGNESIUM LEVEL 2.1 MG/DL (1.8-2.4); POTASSIUM SERUM 4.5 MEQ/L (3.5-5.1); TOTAL PROTEIN 6.8 GM/DL (6.4-8.2)
[2016-11-29] MEDS: LEVEMIR (INSULIN DETEMIR) 1 UNITS/0.01ML SC SCH (07:56)
[2016-11-29] MEDS: glipiZIDE (GLUCOTROL) 5 MG TAB PO SCH (08:14)
[2016-11-29] MEDS: MIRALAX *UNIT DOSE* 17GM PACKET PO SCH (08:14)
[2016-11-29] MEDS: DOCUSATE SODIUM 100 MG CAP PO SCH (08:14)
[2016-11-29] MEDS: SENOKOT S TAB PO SCH (08:14)
[2016-11-29] MEDS: OMEPRAZOLE 20 MG CAP PO SCH (08:14)
[2016-11-29] MEDS: CHLORHEXIDINE GLUCONATE 0.12 % 15ML UDC (PERIDEX ORAL RINSE) MT SCH (08:15)
[2016-11-29] MEDS: HEPARIN SOD (PORCINE) 5000 UNITS/ML VIAL SC SCH (08:15)
[2016-11-29] MEDS: HumaLOG INSULIN (NovoLOG) PER UNIT SC SCH ×2 (08:15→12:09)
[2016-11-29] MEDS ORDERED: INSUDET SC (10:12)
== END 2016-11-29 13:38 | disposition home or self-care (01) | DRG 638 ==
LOC: EDBD 13:21 → M ED 15:40 → M ED INP 17:38 → M MSPAV 20:17
PROVIDERS: ADMIT Internal Medicine; ATTEND Internal Medicine
DX: E11.65 Type 2 diabetes mellitus with hyperglycemia (principal); N13.30 Unspecified hydronephrosis; N17.9 Acute kidney failure, unspecified; I50.32 Chronic diastolic (congestive) heart failure; I13.0 Hypertensive heart and chronic kidney disease with heart failure and stage 1 through stage 4 chronic kidney disease, or unspecified chronic kidney disease; N39.0 Urinary tract infection, site not specified; N18.3 Chronic kidney disease, stage 3 (moderate); Z85.46 Personal history of malignant neoplasm of prostate; Z85.51 Personal history of malignant neoplasm of bladder; F41.9 Anxiety disorder, unspecified; F32.9 Major depressive disorder, single episode, unspecified; E78.5 Hyperlipidemia, unspecified; K21.9 Gastro-esophageal reflux disease without esophagitis; F70 Mild intellectual disabilities; Z79.899 Other long term (current) drug therapy; Z88.8 Allergy status to other drugs, medicaments and biological substances; Z91.040 Latex allergy status

== ENCOUNTER → 2017-01-02 | Outpatient (CLI) | payer MEDICARE, MEDICAID ==
[~2017-01-02] MED LIST changes: +BACITAB PO; -BACITAB3 PO; +CEPH500T PO; -COLA100C3 PO; +COLA100C5 PO; +GLIM2TA PO; +INSUDET SC; +KEFL500C17 PO; -KEFL500C7 PO; +OMEP20CA3 PO; +PAXI20TA29 PO; -PAXI20TA3 PO; +PAXI40TA10 PO; -PAXI40TA2 PO
--- NOTE | 2017-01-03 10:35 | RADONC ---
RADIATION ONCOLOGY CONSULTATION NOTE: DATE: 01/02/2017 CHART NUMBER: [id number]. DIAGNOSIS: Bladder cancer. STAGE: [id number]. DIAGNOSIS: Prostate cancer. STAGE: IIB, [id number]. ECOG PERFORMANCE STATUS: 3. CONSULTATION NOTE: Mr. Recio is an 81-year-old white male with the diagnosis of a stage [id number] urinary bladder cancer as well as a stage IIB, [id number] adenocarcinoma of the prostate, [place] score 5 (3-2), who is presenting to us today status post cystoprostatectomy for discussion of his therapeutic options. HISTORY OF PRESENT ILLNESS: The patient underwent a robotic-assisted radical cystoprostatectomy, plus intracorporeal urinary diversion, plus bilateral pelvic lymph node dissection on 09/18/2016. Pathology revealed a high-grade urothelial carcinoma involving the right wall of the bladder and trigone measuring 5 cm in largest dimension. The tumor invaded the full thickness of the bladder wall and made it into the perivesicular fat. Carcinoma was noted invading the base of the right ureter causing extensive obstruction. The margins of resection were all negative for malignancy. The prostate gland was removed and a [place] score 5 (3-2) adenocarcinoma was seen on the left side of the prostate. The prostate margins and seminal vesicles appeared to be free of cancer. The bilateral ureter margins were also free of cancer. The prostatic urethral margin was free of urothelial cancer. An extensive right pelvic lymph node dissection was undertaken and zero of the six nodes sampled were found to have metastatic disease. Of note, the right pelvic lymph node showed two involved with high-grade urothelial carcinoma out of the seven. The largest lymph node measured 4 cm. The patient has done well since surgery and has recovered nicely. He was recently seen by Dr. Lee and we received an office note recommending either close observation for a medical oncology consultation for adjuvant chemotherapy. Apparently, the patient was set up for our office by mistake. PAST MEDICAL HISTORY: The patient's past medical history is positive for diabetes, hypercholesterolemia, GERD, anxiety disorder, mental retardation, impulse control disorder, compulsive disorder, and an atonic bladder. ALLERGIES: The patient is allergic to BETADINE. SOCIAL HISTORY: The patient is a resident at [facility]. He does not smoke cigarettes nor abuse alcohol. FAMILY HISTORY: The patient's family history is negative for malignancy. REVIEW OF SYSTEMS: The patient's review of systems is positive for some weight loss and some hematuria but is otherwise noncontributory. Denies nausea, vomiting, fevers, chills, night sweats, diplopia, headaches, anxiety or depression, anorexia, weight loss, visual disturbances, chest pain, urinary or bowel difficulties, bone pain, or neurological problems. PHYSICAL EXAMINATION: The patient is noncommunicative. He is not answering or asking questions. I am not sure if he has paid to our attention to her conversation. Physical examination was deferred at this point. At the present time, I am not sure that there would be any real role for radiation. I did discuss the possibility in light of the fact that the tumor did extend into the fat around the bladder that postoperative radiation therapy would not be unreasonable in an attempt to increase the likelihood of achieving local control. Unfortunately for this patient he is stage IV disease with a large pelvic lymph node. I feel he would be at much greater risk for metastatic disease rather than local failure. I have set the patient up for discussion at our multidisciplinary tumor conference next Sunday. In addition, as per Dr. Lee's note, we are setting up a medical oncology consultation for this patient. At this time, I have not set him up for any radiation planning. At this time, he is stage IV disease and his quality of life actually is not bad. I do not want to cause him more harm than good by initiating a protracted course of radiation on him. In addition, the nat instructor who came with the patient reports that the family would not wish to undergo such a procedure nonetheless. In summary, we have set this patient up for discussion at our multidisciplinary tumor conference. In addition, we have set him up to be seen by medical oncology to see whether or not observation or any systemic therapy would be indicated. I have put in the phone call to one of our medical oncologist, Dr. Ritchie, to let her know that we would be discussing this at the next tumor conference. Pending the recommendations of the tumor board, final recommendations will be made at that time. Thank you for allowing us to see this patient. As always, warm regards. cc: Hanna Martinez MD, SANDER Lee MD
== END ==
LOC: M ONCR 13:38
PROVIDERS: ATTEND Radiology Radiation Oncology
DX: C67.9 Malignant neoplasm of bladder, unspecified (principal); C61 Malignant neoplasm of prostate

== ENCOUNTER → 2017-03-12 | Outpatient (CLI) | payer MEDICARE, MEDICAID ==
[2017-03-12 10:34] LABS: ALBUMIN 3.4 GM/DL (3.2-5.2); ALBUMIN/GLOBULIN RATIO 0.89 (1.00-1.93); BILIRUBIN,TOTAL 0.4 MG/DL (0.2-1.0); CALCIUM LEVEL 8.3 MG/DL (8.8-10.2); CREATININE FOR GFR 1.5 MG/DL (0.70-1.30); GLOMERULAR FILTRATION RATE 47.5 (>35); POTASSIUM SERUM 4.6 MEQ/L (3.5-5.1); TOTAL PROTEIN 7.2 GM/DL (6.4-8.2)
== END ==
LOC: M WUC 08:33
PROVIDERS: ATTEND Family Medicine
DX: E11.9 Type 2 diabetes mellitus without complications (principal); C67.9 Malignant neoplasm of bladder, unspecified

== ENCOUNTER → 2017-03-12 | Outpatient (CLI) | payer MEDICARE, MEDICAID ==
[2017-03-12 10:25] LABS: MEAN CORPUSCULAR HEMOGLOBIN 28.3 pg (27.0-33.0); MEAN CORPUSCULAR HGB CONC 31.6 g/dl (32.0-36.5); MEAN CORPUSCULAR VOLUME 89.3 fl (80.0-96.0); RED CELL DISTRIBUTION WIDTH 15.2 % (11.5-14.5); WHITE BLOOD COUNT 4.5 10^3/uL (4.0-10.0)
[2017-03-12 10:30] LABS: CALCIUM LEVEL 8.3 MG/DL (8.8-10.2); CREATININE FOR GFR 1.5 MG/DL (0.70-1.30); GLOMERULAR FILTRATION RATE 47.5 (>35); POTASSIUM SERUM 4.6 MEQ/L (3.5-5.1)
== END ==
LOC: M WUC 08:29
PROVIDERS: ATTEND Urology
DX: C67.9 Malignant neoplasm of bladder, unspecified (principal)

== ENCOUNTER → 2017-03-29 | Outpatient (CLI) | payer MEDICARE, MEDICAID ==
[~2017-03-29] MED LIST changes: +GASTROGRAFIN SOLUTION 30ML (Q9963) As Ordered ONE
--- NOTE | 2017-03-29 20:10 | REP ---
CT CHEST WITHOUT CONTRAST: 03/29/2017. Clinical History: Bladder carcinoma, renal insufficiency. Restaging. Comparison 08/02/2016, 04/17/2015 Findings: Lungs remain mildly hyperinflated. Some dependent atelectatic changes mid and lower lung zones. There is basilar fibrotic change as well. Bronchiectatic changes are seen in both lower lung zones and perihilar regions, similar to the previous study. There is crowding of markings in the lower lung zones, but I do not see dense consolidation or parenchymal mass. Fibrotic changes in the medial segment of the right middle lobe and the inferior lingular segment are stable. I see no effusion, pleural thickening or pleural based mass. Calcified granuloma again seen right upper lobe anterior segment on image 36. There is scarring in the anterior medial aspect of the anterior segment right upper lobe, also stable. No pneumothorax or pneumomediastinum. Heart is mildly enlarged. There is a hiatal hernia which is increased in size since the previous study, quite distended with oral contrast and some reflux from that hiatal hernia into the lower esophagus is noted, only a small volume. Calcifications in coronary arteries are present. The aorta has calcifications at the arch and descending portion without aneurysm. Heart size mildly prominent. No pericardial thickening or effusion. No pathologic sized mediastinal or hilar adenopathy. There is no axillary, supraclavicular mass identified. Bone windows show degenerative disc changes in the thoracic spine with vacuum phenomena in the mid and lower as regions. The sternum, manubrium, medial clavicles, visualized portions of the humeral heads, scapula and ribs are all intact. Findings in the upper abdomen will be described in detail on the CT abdomen and pelvis. Impression: 1. Dependent atelectatic change and fibrotic changes in the bases as well as medial segment right middle lobe, inferior lingular segment of the left upper lobe and at the right upper lobe anterior segment, all stable. 2. 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 3. Large hiatal hernia, size increased on the study with large volume of oral contrast within it, a small amount of reflux into the lower esophageal segment.4. No mediastinal or hilar adenopathy, gross evidence for lung or bone metastatic disease at this time. Signed by Miah Wiseman MD 03/29/2017 08:19 P
--- NOTE | 2017-03-29 20:36 | REP ---
CT ABDOMEN AND PELVIS WITHOUT IV CONTRAST: 03/29/2017. Clinical history: Bladder carcinoma for follow-up and restaging. Comparison: Noncontrast CT 11/25/2016, contrast CT 08/02/2016. Technique: Oral Gastrografin mixture given per our bowel contrast protocol, 10 mL in 290 mL of flavored water for two doses. Much of this is left in the very large hiatal hernia. Findings:CT abdomen: Large hiatal hernia is increased in size since the previous study, filled with oral contrast and some as reflux into the lower esophagus. Clips from prior cholecystectomy are seen. Liver shows some hepatic cysts, the largest is in the lateral segment left lobe where two are measuring about 2.6 cm each. A few smaller cysts in the right hepatic lobe. There is no biliary dilatation. No ascites. Spleen is unremarkable. Pancreas is grossly intact. Thoracic aorta into the abdominal aorta shows tortuosity and calcification, appearance unchanged. There is an ileal loop diversion seen with bilateral hydroureters and some hydronephrosis, left greater than right. The urostomy is in the right midabdomen through the rectus muscle as on the previous study. Adrenal glands without mass and unchanged. Small bowel loops partially filled with contrast or fluid. There is moderate constipation. This is all unchanged. No obstruction. No generalized ascites or adenopathy. In the pelvis, the bladder is absent after surgical resection with clips evident. Small bowel loops fill the lower pelvis midline. Moderate constipation distal left colon to rectosigmoid. Anastomotic suture line seen in bowel loops in the right abdomen after creation of the urostomy diversion. No evidence of ascites or contrast leak in these bowel loops. There is no inguinal or ventral hernia. No inguinal or pelvic adenopathy. Bone windows show degenerative disc changes, more in the thoracic than lumbar levels without compression deformity. There is extensive facet arthritis lower lumbar spine and slight exaggeration of lumbar lordosis. Visualized ribs were intact. Impression: 1. Diverting urostomy through the right rectus muscle with bilateral hydronephrosis worse on the left not much changed on the right. Both with extrarenal pelves and hydroureter. No stones. No renal mass. 2. Bladder absent. No pelvic mass or adenopathy. No ascites. 3. Constipation. 4. Hepatic cysts. Prior cholecystectomy. 5. Large hiatal hernia. No small bowel obstruction or other acute finding. Signed by Miah Wiseman MD 03/30/2017 04:59 P
== END ==
LOC: M RAD 15:24
PROVIDERS: ATTEND Internal Medicine Medical Oncology
DX: C67.9 Malignant neoplasm of bladder, unspecified (principal)
CPT/HCPCS: 71250; 74176; Q9963

== ENCOUNTER 2017-06-04 00:09 | Emergency (ER) | payer MEDICARE, MEDICAID ==
[2017-06-04 01:32] LABS: BASO % 0.2 % (0.0-1.0); IMMATURE GRANULOCYTE % 0.1 % (0-0); LYMPH # 0.3 10^3/uL (1.5-4.5); LYMPH % 2.9 % (24.0-44.0); MEAN CORPUSCULAR HEMOGLOBIN 30.3 pg (27.0-33.0); MEAN CORPUSCULAR HGB CONC 33.3 g/dl (32.0-36.5); MEAN CORPUSCULAR VOLUME 90.8 fl (80.0-96.0); MONO % 10.8 % (0.0-5.0); NEUTROPHILS # 8.2 10^3/uL (1.8-7.7); PLATELET COUNT, AUTOMATED 168 10^3/uL (150-450); RED CELL DISTRIBUTION WIDTH 13.9 % (11.5-14.5); WHITE BLOOD COUNT 9.5 10^3/uL (4.0-10.0)
[2017-06-04 01:57] LABS: ALBUMIN 3.1 GM/DL (3.2-5.2); ALBUMIN/GLOBULIN RATIO 0.72 (1.00-1.93); ALKALINE PHOSPHATASE 77 U/L (45-117); ALT/SGPT 10 U/L (12-78); AMYLASE 38 U/L (25-115); ANION GAP 8 MEQ/L (8-16); AST/SGOT 10 U/L (7-37); BILIRUBIN,DIRECT 0.2 MG/DL (0.0-0.2); BILIRUBIN,TOTAL 0.7 MG/DL (0.2-1.0); BLOOD UREA NITROGEN 62 MG/DL (7-18); CALCIUM LEVEL 9.3 MG/DL (8.8-10.2); CARBON DIOXIDE LEVEL 28 MEQ/L (21-32); CHLORIDE LEVEL 100 MEQ/L (98-107); CREATININE FOR GFR 1.91 MG/DL (0.70-1.30); GLOMERULAR FILTRATION RATE 35.9 (>35); GLUCOSE, FASTING 343 MG/DL (83-110); POTASSIUM SERUM 4.3 MEQ/L (3.5-5.1); SODIUM LEVEL 136 MEQ/L (136-145); TOTAL PROTEIN 7.4 GM/DL (6.4-8.2)
[2017-06-04 02:17] LABS: POSITIVE DIFF POS FLAG
[2017-06-04] MEDS: CIPROFLOXACIN 400 MG in APPROPRIATE DILUENT 1 EA IV (03:15)
[2017-06-04] MEDS: NS 500 ML IV (03:15)
== END 2017-06-04 04:37 | disposition home or self-care (01) ==
LOC: M ED 00:09
DX: N39.0 Urinary tract infection, site not specified (principal); E86.0 Dehydration
CPT/HCPCS: J0744

== ENCOUNTER → 2017-06-24 | Outpatient (CLI) | payer MEDICARE, MEDICAID ==
[2017-06-24 18:32] LABS: CHOLESTEROL LEVEL 155 MG/DL (<200); CHOLESTEROL RISK RATIO 3.604 (<5); HDL CHOLESTEROL 43 MG/DL (>40); LDL CHOLESTEROL 102.4 MG/DL (<100); NON-HDL-C 112 MG/DL; TRIGLYCERIDES LEVEL 48 MG/DL (<150)
== END ==
LOC: M WUC 08:32
DX: Z51.81 Encounter for therapeutic drug level monitoring (principal); Z79.899 Other long term (current) drug therapy

== ENCOUNTER → 2017-06-24 | Outpatient (CLI) | payer MEDICARE, MEDICAID ==
[2017-06-24 18:10] LABS: HEMATOCRIT 35.9 % (42.0-52.0); HEMOGLOBIN 11.5 g/dl (14.0-18.0); MEAN CORPUSCULAR HEMOGLOBIN 30.3 pg (27.0-33.0); MEAN CORPUSCULAR VOLUME 94.7 fl (80.0-96.0); PLATELET COUNT, AUTOMATED 222 10^3/uL (150-450); RED BLOOD COUNT 3.79 10^6/uL (4.30-6.10); RED CELL DISTRIBUTION WIDTH 13.5 % (11.5-14.5); WHITE BLOOD COUNT 3.9 10^3/uL (4.0-10.0)
[2017-06-24 18:29] LABS: ANION GAP 6 MEQ/L (8-16); BLOOD UREA NITROGEN 30 MG/DL (7-18); CARBON DIOXIDE LEVEL 27 MEQ/L (21-32); CHLORIDE LEVEL 108 MEQ/L (98-107); CREATININE FOR GFR 1.44 MG/DL (0.70-1.30); GLOMERULAR FILTRATION RATE 49.8 (>35); GLUCOSE, FASTING 110 MG/DL (83-110); POTASSIUM SERUM 4.5 MEQ/L (3.5-5.1); SODIUM LEVEL 141 MEQ/L (136-145)
== END ==
LOC: M WUC 08:34
DX: C67.9 Malignant neoplasm of bladder, unspecified (principal); Z51.81 Encounter for therapeutic drug level monitoring; Z79.899 Other long term (current) drug therapy
CPT/HCPCS: 80061

== ENCOUNTER → 2017-07-04 | Outpatient (CLI) | payer MEDICARE, MEDICAID ==
[2017-07-04 19:30] LABS: PROSTATIC SPECIFIC AG MONITOR < 0.01 NG/ML (< 4.0)
== END ==
LOC: M SMT 11:47
DX: Z85.46 Personal history of malignant neoplasm of prostate (principal)
CPT/HCPCS: 84153

== ENCOUNTER → 2017-07-18 | Outpatient (CLI) | payer MEDICARE, MEDICAID ==
[2017-07-18 08:56] LABS: BASO # 0.1 10^3/uL (0.0-0.2); BASO % 0.5 % (0.0-1.0); EOS # 0.1 10^3/uL (0.0-0.50); EOS % 0.7 % (0.0-3.0); HEMATOCRIT 34.8 % (42.0-52.0); HEMOGLOBIN 11.2 g/dl (14.0-18.0); IMMATURE GRANULOCYTE # 0.1 10^3/uL (0-0); IMMATURE GRANULOCYTE % 0.9 % (0-0); LYMPH # 1.2 10^3/uL (1.5-4.5); LYMPH % 11.3 % (24.0-44.0); MEAN CORPUSCULAR HEMOGLOBIN 29.6 pg (27.0-33.0); MEAN CORPUSCULAR HGB CONC 32.2 g/dl (32.0-36.5); MEAN CORPUSCULAR VOLUME 91.8 fl (80.0-96.0); MONO % 9.5 % (0.0-5.0); NEUTROPHILS # 8.1 10^3/uL (1.8-7.7); NEUTROPHILS % 77.1 % (36.0-66.0); PLATELET COUNT, AUTOMATED 268 10^3/uL (150-450); RED BLOOD COUNT 3.79 10^6/uL (4.30-6.10); RED CELL DISTRIBUTION WIDTH 12.6 % (11.5-14.5); WHITE BLOOD COUNT 10.4 10^3/uL (4.0-10.0)
[2017-07-18 09:19] LABS: ALBUMIN 3.2 GM/DL (3.2-5.2); ALBUMIN/GLOBULIN RATIO 0.84 (1.00-1.93); ALKALINE PHOSPHATASE 83 U/L (45-117); ALT/SGPT 10 U/L (12-78); ANION GAP 7 MEQ/L (8-16); AST/SGOT 4 U/L (7-37); BILIRUBIN,TOTAL 0.6 MG/DL (0.2-1.0); BLOOD UREA NITROGEN 31 MG/DL (7-18); CALCIUM LEVEL 8.8 MG/DL (8.8-10.2); CARBON DIOXIDE LEVEL 27 MEQ/L (21-32); CHLORIDE LEVEL 105 MEQ/L (98-107); CREATININE FOR GFR 1.86 MG/DL (0.70-1.30); GLUCOSE, FASTING 174 MG/DL (70-100); SODIUM LEVEL 139 MEQ/L (136-145)
== END ==
LOC: M LAB 08:19
DX: Z01.818 Encounter for other preprocedural examination (principal); I10 Essential (primary) hypertension; E78.5 Hyperlipidemia, unspecified
CPT/HCPCS: 93005

== ENCOUNTER → 2017-09-22 | Outpatient (CLI) | payer MEDICARE, MEDICAID | LOC: M WUC 08:59 | DX: S92.411A Displaced fracture of proximal phalanx of right great toe, initial encounter for closed fracture (principal); X58.XXXA Exposure to other specified factors, initial encounter; Y92.89 Other specified places as the place of occurrence of the external cause | CPT/HCPCS: 73660 ==

== ENCOUNTER → 2017-10-09 | Outpatient (REF) | payer MEDICARE, MEDICAID ==
[2017-10-09 14:14] LABS: FERRITIN 54 NG/ML (26-388); IRON (FE) 76 UG/DL (65-175); PERCENT SATURATION 29.2 % (19.7-50.0); TOTAL IRON BINDING CAPACITY 260 UG/DL (250-450)
== END ==
LOC: M LAB REF 13:38
DX: C67.9 Malignant neoplasm of bladder, unspecified (principal)
CPT/HCPCS: 83550

== ENCOUNTER → 2017-12-21 | Outpatient (REF) | payer MEDICARE, MEDICAID | LOC: M LAB REF 12:58 | DX: R30.0 Dysuria (principal) | CPT/HCPCS: 87186 ==

== ENCOUNTER → 2018-03-19 | Outpatient (CLI) | payer MEDICARE, MEDICAID ==
[2018-03-19 14:36] LABS: BASO # 0.1 10^3/uL (0.0-0.2); EOS # 0.1 10^3/uL (0.0-0.50); EOS % 2.4 % (0.0-3.0); HEMATOCRIT 34.4 % (42.0-52.0); HEMOGLOBIN 11.1 g/dl (13.5-17.5); LYMPH # 0.9 10^3/uL (1.5-4.5); LYMPH % 18.4 % (24.0-44.0); MEAN CORPUSCULAR HEMOGLOBIN 30.1 pg (27.0-33.0); MEAN CORPUSCULAR HGB CONC 32.3 g/dl (32.0-36.5); MEAN CORPUSCULAR VOLUME 93.2 fl (80.0-96.0); MONO # 0.5 10^3/uL (0.0-0.8); MONO % 10.9 % (0.0-5.0); NEUTROPHILS # 3.3 10^3/uL (1.8-7.7); NEUTROPHILS % 66.3 % (36.0-66.0); PLATELET COUNT, AUTOMATED 234 10^3/uL (150-450); RED BLOOD COUNT 3.69 10^6/uL (4.30-6.10); RED CELL DISTRIBUTION WIDTH 13.6 % (11.5-14.5)
[2018-03-19 15:08] LABS: ALBUMIN 3.1 GM/DL (3.2-5.2); ALBUMIN/GLOBULIN RATIO 0.79 (1.00-1.93); ALKALINE PHOSPHATASE 92 U/L (45-117); ALT/SGPT 9 U/L (12-78); ANION GAP 6 MEQ/L (8-16); AST/SGOT 6 U/L (7-37); BILIRUBIN,TOTAL 0.3 MG/DL (0.2-1.0); BLOOD UREA NITROGEN 38 MG/DL (7-18); CALCIUM LEVEL 8.3 MG/DL (8.8-10.2); CARBON DIOXIDE LEVEL 26 MEQ/L (21-32); CHLORIDE LEVEL 104 MEQ/L (98-107); CREATININE FOR GFR 2.08 MG/DL (0.70-1.30); GLOMERULAR FILTRATION RATE 32.5 (>35); GLUCOSE, FASTING 245 MG/DL (70-100); POTASSIUM SERUM 5.5 MEQ/L (3.5-5.1); SODIUM LEVEL 136 MEQ/L (136-145)
== END ==
LOC: M WUC 10:32
DX: C67.9 Malignant neoplasm of bladder, unspecified (principal)
CPT/HCPCS: 80053

== ENCOUNTER → 2018-03-19 | Outpatient (CLI) | payer MEDICARE, MEDICAID ==
[2018-03-19 14:36] LABS: HEMATOCRIT 33.9 % (42.0-52.0); MEAN CORPUSCULAR HEMOGLOBIN 29.7 pg (27.0-33.0); MEAN CORPUSCULAR HGB CONC 32.4 g/dl (32.0-36.5); MEAN CORPUSCULAR VOLUME 91.6 fl (80.0-96.0); PLATELET COUNT, AUTOMATED 227 10^3/uL (150-450); RED CELL DISTRIBUTION WIDTH 13.5 % (11.5-14.5)
[2018-03-19 15:04] LABS: ANION GAP 9 MEQ/L (8-16); BLOOD UREA NITROGEN 42 MG/DL (7-18); CALCIUM LEVEL 8.9 MG/DL (8.8-10.2); CARBON DIOXIDE LEVEL 25 MEQ/L (21-32); CHLORIDE LEVEL 104 MEQ/L (98-107); GLOMERULAR FILTRATION RATE 32.1 (>35); GLUCOSE, FASTING 249 MG/DL (70-100); POTASSIUM SERUM 5.5 MEQ/L (3.5-5.1); SODIUM LEVEL 138 MEQ/L (136-145)
== END ==
LOC: M WUC 10:28
DX: Z08 Encounter for follow-up examination after completed treatment for malignant neoplasm (principal); Z85.51 Personal history of malignant neoplasm of bladder

== ENCOUNTER → 2018-03-20 | Outpatient (CLI) | payer MEDICARE, MEDICAID | LOC: M RAD 12:37 | DX: C67.9 Malignant neoplasm of bladder, unspecified (principal); K44.9 Diaphragmatic hernia without obstruction or gangrene; J98.11 Atelectasis; K76.89 Other specified diseases of liver; N13.30 Unspecified hydronephrosis | CPT/HCPCS: 71250 ==

== ENCOUNTER → 2018-05-21 | Outpatient (REF) | payer MEDICARE, MEDICAID | LOC: M LAB REF 10:31 | DX: N39.0 Urinary tract infection, site not specified (principal) | CPT/HCPCS: 87086 ==

== ENCOUNTER → 2018-05-28 | Outpatient (CLI) | payer MEDICARE, MEDICAID ==
[~2018-05-28] MED LIST changes: +CIPR-249 PO; -DOXY-278 PO; +DOXY-350 PO; +ENOX40IN3 SC; -GASTROGRAFIN SOLUTION 30ML (Q9963) As Ordered ONE; +GLIM2TAB PO; +IPRA0.00 NEB; -IPRASOL4 NEB; +JANU25TA PO; +MILK120011 PO; -MILKSUS PO; -QUET20XRTB PO; +SERO200T43 PO
--- NOTE | 2018-05-28 15:07 | REP ---
Right lower extremity duplex veins History: Edema There is occlusive thrombosis in the right common femoral vein and proximal and mid femoral vein. There is nonocclusive thrombus in the distal femoral vein. The popliteal vein is patent. IMPRESSION: There is occlusive deep venous thrombosis in the right common femoral and proximal and mid femoral vein. There is nonocclusive deep venous thrombosis in the distal femoral vein. Electronically Signed by Harish Mcdonald MD 05/28/2018 03:10 P
== END ==
LOC: M RAD 12:13
PROVIDERS: ATTEND Family Medicine
DX: I82.511 Chronic embolism and thrombosis of right femoral vein (principal); R60.9 Edema, unspecified

== ENCOUNTER 2018-06-02 18:49 | Emergency (ER) | payer MEDICARE, MEDICAID ==
[~2018-06-02 18:49] MED LIST changes: -ENOX40IN3 SC; -GLIM2TAB PO; -MILK120011 PO; +MILK12002 PO
[2018-06-02 19:20] LABS: BASO % 0.3 % (0.0-1.0); EOS % 0.2 % (0.0-3.0); HEMATOCRIT 28.6 % (42.0-52.0); HEMOGLOBIN 9.2 g/dl (13.5-17.5); LYMPH # 0.6 10^3/uL (1.5-4.5); MEAN CORPUSCULAR HEMOGLOBIN 29.3 pg (27.0-33.0); MEAN CORPUSCULAR HGB CONC 32.2 g/dl (32.0-36.5); MEAN CORPUSCULAR VOLUME 91.1 fl (80.0-96.0); MONO # 0.8 10^3/uL (0.0-0.8); MONO % 7.4 % (0.0-5.0); NEUTROPHILS # 9.2 10^3/uL (1.8-7.7); NEUTROPHILS % 85.4 % (36.0-66.0); PLATELET COUNT, AUTOMATED 159 10^3/uL (150-450); RED BLOOD COUNT 3.14 10^6/uL (4.30-6.10); WHITE BLOOD COUNT 10.7 10^3/uL (4.0-10.0)
[2018-06-02] MEDS ORDERED: NS 1,000 ML IV ONE (19:45)
[2018-06-02 19:53] LABS: ALBUMIN 2.3 GM/DL (3.2-5.2); ALT/SGPT 12 U/L (12-78); BILIRUBIN,DIRECT < 0.1 MG/DL (0.0-0.2); BILIRUBIN,TOTAL 0.2 MG/DL (0.2-1.0); BLOOD UREA NITROGEN 49 MG/DL (7-18); CALCIUM LEVEL 7.5 MG/DL (8.8-10.2); CARBON DIOXIDE LEVEL 21 MEQ/L (21-32); CHLORIDE LEVEL 102 MEQ/L (98-107); CREATININE FOR GFR 2.19 MG/DL (0.70-1.30); GLOMERULAR FILTRATION RATE 30.6 (>35); GLUCOSE, FASTING 245 MG/DL (70-100); SODIUM LEVEL 131 MEQ/L (136-145); TOTAL PROTEIN 5.8 GM/DL (6.4-8.2)
--- NOTE | 2018-06-02 20:05 | REP ---
Clinical: Hyperglycemia. Technique: Portable semiupright view of the chest. Comparison: 11/25/2016. Findings: Mediastinum and cardiac silhouette are stable. Moderate hiatal hernia suggested. Lung smiley demonstrate diffuse chronic interstitial changes. Superimposed bibasilar atelectasis (left greater than right) noted. No definite effusion. No pneumothorax. Skeletal structures intact. Impression: Bibasilar atelectasis. Hiatal hernia. Electronically Signed by Timmy Richey MD 06/02/2018 07:56 P
[2018-06-02 20:20] LABS: INFLUENZA A AMPLIFICATION NEGATIVE (NEGATIVE); INFLUENZA B AMPLIFICATION NEGATIVE (NEGATIVE)
[2018-06-02 22:15] VITALS: BP 124/63
[2018-06-02] MEDS ORDERED: KEFL500C17 PO (22:23)
[2018-06-02] MEDS ORDERED: CEPHALEXIN 500 MG CAP PO ONE (22:30)
== END 2018-06-02 22:33 | disposition home or self-care (01) ==
LOC: EDBD 18:49 → M ED 18:49
DX: N39.0 Urinary tract infection, site not specified (principal); E86.0 Dehydration; E11.9 Type 2 diabetes mellitus without complications; I50.9 Heart failure, unspecified; I11.0 Hypertensive heart disease with heart failure; N18.9 Chronic kidney disease, unspecified; Z79.899 Other long term (current) drug therapy; Z88.8 Allergy status to other drugs, medicaments and biological substances; Z91.040 Latex allergy status

== ENCOUNTER 2018-06-10 12:55 | Inpatient (IN) | payer MEDICARE, MEDICAID ==
[~2018-06-10] VITALS: Ht 167.6 cm; Wt 80.6 kg
[~2018-06-10 12:55] MED LIST changes: +MILK120011 PO; -MILK12002 PO
[2018-06-10] MEDS ORDERED: NS 1,000 ML IV ONE (13:15)
[2018-06-10] MEDS ORDERED: HumuLIN R (REGULAR) INSULIN (NovoLIN R) **100U/ML** PER UNIT IV ONE (13:15)
--- NOTE | 2018-06-10 13:28 | REP ---
Clinical: Diabetic ketoacidosis. Technique: Portable semiupright view of the chest. Comparison: 06/02/2018. Findings: Examination is limited by portable technique and poor inspiratory effort. Chronic interstitial changes are noted. Bibasilar fibroatelectatic changes appear improved. No new acute process identified. Skeletal structures stable. Impression: Improved bibasilar fibroatelectatic changes suggested. No new acute process identified. Electronically Signed by Timmy Richey MD 06/10/2018 01:20 P
[2018-06-10 13:43] LABS: VENOUS BASE EXCESS -3.1 (-2.0-2.0); VENOUS HCO3 24.1 MEQ/L (23.0-27.0); VENOUS O2 SATURATION 76.2 % (60.0-80.0); VENOUS PARTIAL PRESSURE CO2 54.4 mmHg (38.0-50.0); VENOUS PARTIAL PRESSURE O2 47.8 mmHg (30.0-50.0); VENOUS PH 7.265 UNITS (7.330-7.430); VENOUS STANDARD HCO3 21.5 MEQ/L; VENOUS TOTAL CO2 25.8 MEQ/L (24.0-28.0)
[2018-06-10 13:45] LABS: BASO % 0.3 % (0.0-1.0); EOS % 0.1 % (0.0-3.0); HEMOGLOBIN 8.7 g/dl (13.5-17.5); LYMPH # 0.8 10^3/uL (1.5-4.5); LYMPH % 5.2 % (24.0-44.0); MEAN CORPUSCULAR HEMOGLOBIN 29.1 pg (27.0-33.0); MEAN CORPUSCULAR HGB CONC 32.2 g/dl (32.0-36.5); MEAN CORPUSCULAR VOLUME 90.3 fl (80.0-96.0); MONO # 0.9 10^3/uL (0.0-0.8); MONO % 5.8 % (0.0-5.0); NEUTROPHILS # 13.7 10^3/uL (1.8-7.7); NEUTROPHILS % 86.5 % (36.0-66.0); PLATELET COUNT, AUTOMATED 267 10^3/uL (150-450); RED BLOOD COUNT 2.99 10^6/uL (4.30-6.10); WHITE BLOOD COUNT 15.8 10^3/uL (4.0-10.0)
--- NOTE | 2018-06-10 13:50 | ECGEPIP ---
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
[2018-06-10 14:07] LABS: HEMOGLOBIN A1c 11.1 %
[2018-06-10 14:19] LABS: INFLUENZA A AMPLIFICATION NEGATIVE (NEGATIVE); INFLUENZA B AMPLIFICATION NEGATIVE (NEGATIVE)
[2018-06-10 14:19] LABS: ACETONE/KETONE 7.62 MG/DL (<2.81); ALBUMIN 2.7 GM/DL (3.2-5.2); ALT/SGPT 60 U/L (12-78); BILIRUBIN,DIRECT 0.1 MG/DL (0.0-0.2); BILIRUBIN,TOTAL 0.4 MG/DL (0.2-1.0); BLOOD UREA NITROGEN 51 MG/DL (7-18); CALCIUM LEVEL 8.8 MG/DL (8.8-10.2); CARBON DIOXIDE LEVEL 23 MEQ/L (21-32); CHLORIDE LEVEL 100 MEQ/L (98-107); CPK CREATINE PHOSPHOKINASE 32 U/L (39-308); CREATININE FOR GFR 2.53 MG/DL (0.70-1.30); GLOMERULAR FILTRATION RATE 25.9 (>35); GLUCOSE, FASTING 528 MG/DL (70-100); LIPASE 197 U/L (73-393); MB/CK RELATIVE INDEX 7.81 (< OR =4); POTASSIUM SERUM 5.3 MEQ/L (3.5-5.1); SODIUM LEVEL 133 MEQ/L (136-145); TOTAL PROTEIN 6.2 GM/DL (6.4-8.2); TROPONIN I < 0.02 NG/ML (< 0.10)
[2018-06-10] MEDS ORDERED: NS 500 ML IV ONE (16:00)
[2018-06-10 17:02] LABS: VENOUS HCO3 22.3 MEQ/L (23.0-27.0); VENOUS O2 SATURATION 55.8 % (60.0-80.0); VENOUS PARTIAL PRESSURE CO2 59.3 mmHg (38.0-50.0); VENOUS PH 7.193 UNITS (7.330-7.430); VENOUS STANDARD HCO3 18.8 MEQ/L; VENOUS TOTAL CO2 24.1 MEQ/L (24.0-28.0)
[2018-06-10] MEDS ORDERED: INSULIN HUMAN REGULAR 100 UNITS in NS 99 ML IV SCH ×2 (17:31→19:55)
[2018-06-10] MEDS ORDERED: INSULIN IV RATE CHANGE DOCUMENTATION ML/HR XX SCH ×2 (17:45→20:00)
[2018-06-10] MEDS ORDERED: ENOX40IN3 SC (17:54)
[2018-06-10] MEDS ORDERED: GLIM2TAB PO (17:54)
[2018-06-10] MEDS: KCL 20MEQ in NS 1000ML 1,000 ML IV SCH (19:15)
[2018-06-10] MEDS ORDERED: SODIUM BICARBONATE 8.4% INJ 50 ML SYRINGE IV ONE (20:00)
[2018-06-10] MEDS ORDERED: ACETAMINOPHEN TAB 650MG DOSE (2X325MG) PO ONE (21:15)
[2018-06-10] MEDS ORDERED: BISACODYL 10 MG SUPP PR PRN (22:45)
[2018-06-10 23:46] LABS: ABG BASE EXCESS -0.9 (-2.0-2.0); ABG HCO3 23.9 MEQ/L (22.0-26.0); ABG O2 SATURATION 98.4 % (95.0-99.0); ABG PARTIAL PRESSURE CO2 40.1 mmHg (35.0-45.0); ABG PARTIAL PRESSURE O2 118.4 mmHg (75.0-100.0); ABG STANDARD HCO3 23.8 MEQ/L (22.0-26.0); ABG TOTAL CO2 25.2 MEQ/L (23.0-31.0); ABG pH (ARTERIAL) 7.394 UNITS (7.350-7.450)
--- NOTE | 2018-06-10 23:49 | HPEPDOC ---
[facility] Medical History & Physical Date of Admission Jun 10, 2018 Primary Care Physician: BI ROSENBAUM MD [facility] History and Physical PRIMARY CARE PROVIDER: Dr. Rosenbaum ATTENDING: CHIEF COMPLAINT: Weakness HISTORY OF PRESENT ILLNESS: Patient is an 83-year-old male past medical history of mental retardation, hypertension, diabetes, chronic kidney disease, recurrent UTIs, and ilial conduit with urinary dye version presenting with chief complaint of weakness. Per his aide, he had been receiving Keflex and Bactrim for a chr onic UTI for the last month, his blood glucose levels had also been creeping up were not controlled by his current medications, and he recently (05/29/18) was diagnosed with a right lower extremity DVT and has been on Lovenox for that since then. He also has been eating more poorly in the last week and today while he was being walked by 2 aids or gripping and underneath arm he collapsed due to weakness and was apparently unresponsive for 30 seconds. During his time in the ED his oxygen dropped to 84% so he was placed on 2 L NC, but does not appear to be in any respiratory distress and has no increased work of breathing. PAST MEDICAL HISTORY: Mental retardation Hypertension Diabetes mellitus Chronic kidney disease Diastolic congestive heart failure Recurrent UTIs History of bladder and prostate cancer status post radical cystectomy, prostatectomy Intracorporeal ileal conduit urinary diversion CAD sp CO sp cardiac catheterization PAST SURGICAL HISTORY: Robotic assisted radical cystectomy Robotic-assisted prostatectomy with bilateral extended pelvic lymph node dissection and intracorporeal ileal conduit urinary diversion SOCIAL HISTORY: No tobacco use history, no alcohol use history, no illicit drug use history. Lives at [facility]. FAMILY HISTORY: ALLERGIES: Please see below. REVIEW OF SYSTEMS: ROS limited secondary to patient's mental status. His provider does report that he has not been complaining of anything in particular this past week only that he has had a poor appetite and his right lower extremity has been tender. The aide also states he has had no episodes of emesis or diarrhea. HOME MEDICATIONS: Please see below. PHYSICAL EXAMINATION: Vitals: (see below) General: No acute distress, laying comfortably in bed. HEENT: Normocephalic, atraumatic. EOMI. Moist mucous membranes. Neck: No JVD or lymphadenopathy Cardiac: RRR, No murmurs Pulm: Clear to auscultation b/l. No wheezing, crackles, rhonchi Abd: Soft, non-tender, non-distended, no guarding, rebound tenderness, or rigidity. BSx4. Ileal conduit with bladder bag present with no signs of drainage or infection.. Ext: Right lower extremity swelling without edema. No signs of cyanosis bilaterally. Neuro: CN 3-12 grossly intact. Sensation to fine touch intact. LABORATORY DATA: See below. IMAGING: MICROBIOLOGY: Please see below. ASSESSMENT/PLAN: #. Lactic acidosis and Leukocytosis Obtaining blood cultures 2, urine cultures. Chest x-ray negative for any acute findings, likely source of infection is patient's UTIs #. Chronic UTI Patient was being treated with Keflex and Bactrim outpatient, we will start patient on IV Rocephin until cultures return. Patient has a history of multiple UTIs at this hospital, which have been sensitive to IV Rocephin. Obtaining urine cultures, adjust medications based on return of urine cultures #. Diabetic ketoacidosis possibly pending Although his anion gap is closed, he still exhibits elevated beta hydroxybutyrate. Given this we will treat him as DKA empirically and monitor both his BMP and beta hydroxybutyrate for changes. Patient was placed on an insulin drip and IV hydration with serial labs to follow. #. Normocytic Anemia Will continue to monitor, patient has chronic anemia at baseline Ordering occult stool #. CAD Continue pravastatin #. GERD - Continue omeprazole #.Depression Continue Seroquel and Paxil #. Constipation Continue Dulcolax #. DVT prophy: Continue Lovenox Patient will be admitted to the ICU under the care of Dr. Styles starting tomorrow at 7 AM. Vital Signs Vital Signs Date Time Temp Pulse Resp B/P (MAP) Pulse Ox O2 Delivery O2 Flow Rate FiO2 06/10/18 20:00 84 106/57 (73) 98 06/10/18 18:21 Room Air 06/10/18 18:06 19 06/10/18 13:06 97.2 Laboratory Data Labs 24H Laboratory Tests 2 06/10/18 13:25: Bedside Glucose (Misc Panel) 519*H 06/10/18 13:30: Immature Granulocyte % (Auto) 2.1, White Blood Count 15.8H, Red Blood Count 2.99L, Hemoglobin 8.7L, Hematocrit 27.0L, Mean Corpuscular Volume 90.3, Mean Corpuscular Hemoglobin 29.1, Mean Corpuscular Hemoglobin Concent 32.2, Red Cell Distribution Width 13.4, Platelet Count 267, Neutrophils (%) (Auto) 86.5H, Lymphocytes (%) (Auto) 5.2L, Monocytes (%) (Auto) 5.8H, Eosinophils (%) (Auto) 0.1, Basophils (%) (Auto) 0.3, Neutrophils # (Auto) 13.7H, Lymphocytes # (Auto) 0.8L, Monocytes # (Auto) 0.9H, Eosinophils # (Auto) 0.0, Basophils # (Auto) 0.0, Nucleated Red Blood Cells % (auto) 0.0, Blood Gas Bicarbonate Standard 21.5, Venous Blood pH 7.265L, Venous Blood Partial Pressure CO2 54.4H, Venous Blood Partial Pressure O2 47.8, Venous Blood Total Carbon Dioxide 25.8, Venous Blood HCO3 24.1, Venous Blood Oxygen Saturation 76.2, Venous Blood Base Excess -3.1L, Anion Gap 10, Glomerular Filtration Rate 25.9L, Estimated Mean Plasma Glucose 272H, Hemoglobin A1c 11.1, Lactic Acid Level 2.8*H, Calcium Level 8.8, Aspartate Amino Transf (AST/SGOT) 38H, Alanine Aminotransferase (ALT/SGPT) 60, Alkaline Phosphatase 94, Total Bilirubin 0.4, Direct Bilirubin 0.1, Total Creatine Kinase 32L, Creatine Kinase MB 2.0, Creatine Kinase MB Relative Index 7.81H, Troponin I < 0.02, Total Protein 6.2L, Albumin 2.7L, Albumin/Globulin Ratio 0.77L, Lipase 197, B-Hydroxybutyrate 7.62H 06/10/18 13:36: Influenza Type A (RT-PCR) NEGATIVE, Influenza Type B (RT-PCR) NEGATIVE 06/10/18 15:39: [facility]side [facility] 427H 06/10/18 15:56: Urine Color YELLOW, Urine Appearance CLEAR, Urine pH 6.0, Urine Specific Early 1.013, Urine Protein 1+H, Urine Glucose (UA) 3+H, Urine Ketones NEGATIVE, Urine Blood 1+H, Urine Nitrite NEGATIVE, Urine Bilirubin NEGATIVE, Urine Urobilinogen 0.2, Urine Leukocyte Esterase TRACEH, Urine WBC (Auto) 17H, Urine RBC (Auto) 15H, Urine Hyaline Casts (Auto) 3, Urine Bacteria (Auto) 2+H, Urine Squamous Epithelial Cells 0, Urine Amorphous Sediment SMALLH, Urine Mucus (Auto) SMALL, Urine Sperm (Auto) 06/10/18 16:49: Blood Gas Bicarbonate Standard 18.8, Venous Blood pH 7.193L, Venous Blood Partial Pressure CO2 59.3H, Venous Blood Partial Pressure O2 37.0, Venous Blood Total Carbon Dioxide 24.1, Venous Blood HCO3 22.3L, Venous Blood Oxygen Saturation 55.8L, Venous Blood Base Excess -6.0L 06/10/18 17:38: Bedside Glucose (Misc Panel) 499H 06/10/18 18:39: Bedside Glucose (Misc Panel) 451H 06/10/18 19:54: Bedside Glucose (Misc Panel) 431H 06/10/18 20:52: Bedside Glucose (Misc Panel) 411H 06/10/18 22:18: Bedside Glucose (Misc Panel) 292H 06/10/18 23:03: 06/10/18 23:10: Bedside Glucose (Misc Panel) 203H CBC/BMP Laboratory Tests 06/10/18 13:30 Red Blood Count 2.99 L, Mean Corpuscular Volume 90.3, Mean Corpuscular Hemoglobin 29.1, Mean Corpuscular Hemoglobin Concent 32.2, Red Cell Distribution Width 13.4, Neutrophils (%) (Auto) 86.5 H, Lymphocytes (%) (Auto) 5.2 L, Monocytes (%) (Auto) 5.8 H, Eosinophils (%) (Auto) 0.1, Basophils (%) (Auto) 0.3, Neutrophils # (Auto) 13.7 H, Lymphocytes # (Auto) 0.8 L, Monocytes # (Auto) 0.9 H, Eosinophils # (Auto) 0.0, Basophils # (Auto) 0.0 Microbiology Microbiology 06/10/18 Urine Culture, Received Pending Home Medications Scheduled (Senna Plus 8.6-50 mg) 1 Tab Tab, 1 TAB PO BID Calcium/Vitamin D (Oscal 500/200 D-3 500-200 mg-Unit) 1 Tab Tab, 1 TAB PO BID Carbamide Peroxide (Debrox) 6.5 % [place], 1 DROP AU 2XW TUES, SAT AT BEDTIME Docusate Sodium (Colace) 100 Mg Cap, 100 MG PO BID Enoxaparin Sodium (Enoxaparin Sodium) 40 Mg/0.4 Ml Inj, 80 MG SC BID Glimepiride (Glimepiride) 2 Mg Tab, 6 MG PO DAILY Lactobacillus Acidophilus (Bacid) 1 Tab Tab, 1 TAB PO BID Omeprazole (Omeprazole) 20 Mg Cap, 20 MG PO QAM Paroxetine Hydrochloride (Paxil) 40 Mg Tab, 40 MG PO QHS give with Paxil 20mg Paroxetine Hydrochloride (Paxil) 20 Mg Tab, 20 MG PO QHS give with Paxil 40mg Polyethylene Glycol (Miralax) 1 Pow Pow, 17 GM PO QAM Pravastatin Sod (Pravastatin Sodium) 40 Mg Tab, 40 MG PO QHS Quetiapine Fumarate (Seroquel Xr) 200 Mg Bettina, 200 MG PO DAILY TAKES @ 1630 Sitagliptin Phosphate (Januvia) 25 Mg Tab, 25 MG PO QHS Scheduled PRN Acetaminophen (Tylenol) 325 Mg Tab, 650 MG PO Q4H PRN for PAIN / FEVER Bisacodyl (Bisacodyl) 10 Mg Sup, 10 MG IL DAILY PRN for CONSTIPATION ON DAY 4 WITHOUT A BM Allergies Coded Allergies: Povidone Iodine (Verified Allergy, Intermediate, Hives, 11/02/16) Latex (Verified Adverse Reaction, Intermediate, risk, 11/02/16) GME ATTESTATION GME ATTESTATION My faculty preceptor for this patient encounter was physically present during the encounter and was fully available. All aspects of the patient interview, examination, medical decision making process, and medical care plan development were reviewed and approved by the faculty preceptor. The faculty preceptor is aware and concurs with the plan as stated in the body of this note and will attest to such by his/her cosignature. ARMEN CONRAD DO Jun 10, 2018 23:48 GONZALO MUNGUIA MD Jun 18, 2018 20:28
[2018-06-11] VITALS (25 sets, daily range): BP systolic 103–165; BP diastolic 57–75
[2018-06-11] MEDS: KCL 20MEQ in NS 1000ML 1,000 ML IV SCH
[2018-06-11 00:37] LABS: ACETONE/KETONE 0.75 MG/DL (<2.81); ALBUMIN 2.3 GM/DL (3.2-5.2); BILIRUBIN,TOTAL 0.2 MG/DL (0.2-1.0); CALCIUM LEVEL 8.3 MG/DL (8.8-10.2); CREATININE FOR GFR 2.47 MG/DL (0.70-1.30); GLOMERULAR FILTRATION RATE 26.6 (>35); POTASSIUM SERUM 4.7 MEQ/L (3.5-5.1); TOTAL PROTEIN 5.3 GM/DL (6.4-8.2)
[2018-06-11] MEDS ORDERED: cefTRIAXone SOD 1 GM in D5W MINI-BAG PLUS 50 ML IV SCH (01:00)
[2018-06-11] MEDS ORDERED: KCL 10MEQ IN D5/0.45NS 1000ML 1,000 ML IV SCH (01:15)
[2018-06-11] MEDS ORDERED: GLUCOSE 4 GM CHEW TABLET PO PRN (01:15)
[2018-06-11] MEDS ORDERED: GLUCAGON FOR INJ 1 MG VIAL (J1610) SC PRN (01:15)
[2018-06-11] MEDS ORDERED: DEXTROSE 50% 50 ML SYRINGE IV PRN (01:15)
[2018-06-11] MEDS ORDERED: INSULIN HUMAN REGULAR 100 UNITS in NS 99 ML IV SCH (02:00)
[2018-06-11] MEDS: INSULIN IV RATE CHANGE DOCUMENTATION ML/HR XX SCH ×2 (02:09→05:59)
[2018-06-11 02:30] LABS: ACETONE/KETONE 0.92 MG/DL (<2.81); CALCIUM LEVEL 8.1 MG/DL (8.8-10.2); CREATININE FOR GFR 2.43 MG/DL (0.70-1.30); GLOMERULAR FILTRATION RATE 27.1 (>35)
[2018-06-11 04:18] LABS: ACETONE/KETONE 1.07 MG/DL (<2.81); CALCIUM LEVEL 8.2 MG/DL (8.8-10.2); CREATININE FOR GFR 2.49 MG/DL (0.70-1.30); GLOMERULAR FILTRATION RATE 26.4 (>35); POTASSIUM SERUM 5.1 MEQ/L (3.5-5.1)
[2018-06-11 06:17] LABS: ACETONE/KETONE 1.25 MG/DL (<2.81); CREATININE FOR GFR 2.49 MG/DL (0.70-1.30); GLOMERULAR FILTRATION RATE 26.4 (>35); POTASSIUM SERUM 5.2 MEQ/L (3.5-5.1)
[2018-06-11] MEDS: HumaLOG INSULIN (NovoLOG) PER UNIT SC SCH ×4 (07:30→21:00)
[2018-06-11 08:20] LABS: BASO % 0.1 % (0.0-1.0); HEMATOCRIT 17.5 % (42.0-52.0); LYMPH # 1.5 10^3/uL (1.5-4.5); LYMPH % 7.2 % (24.0-44.0); MEAN CORPUSCULAR HEMOGLOBIN 29.5 pg (27.0-33.0); MEAN CORPUSCULAR VOLUME 92.1 fl (80.0-96.0); MONO # 1.3 10^3/uL (0.0-0.8); MONO % 6.6 % (0.0-5.0); NEUTROPHILS # 16.8 10^3/uL (1.8-7.7); NEUTROPHILS % 83.7 % (36.0-66.0); PLATELET COUNT, AUTOMATED 225 10^3/uL (150-450); WHITE BLOOD COUNT 20.1 10^3/uL (4.0-10.0)
[2018-06-11 08:28] LABS: HEMOGLOBIN 5.6 g/dl (13.5-17.5)
[2018-06-11] MEDS: NS 1,000 ML IV SCH (08:45)
[2018-06-11 08:46] LABS: CPK CREATINE PHOSPHOKINASE 59 U/L (39-308); MB/CK RELATIVE INDEX 5.59 (< OR =4); TROPONIN I < 0.02 NG/ML (< 0.10)
[2018-06-11] MEDS ORDERED: LEVEMIR (INSULIN DETEMIR) 1 UNITS/0.01ML SC SCH (09:00)
[2018-06-11] MEDS ORDERED: ENOXAPARIN 80 MG/0.8 ML SYRINGE (J1650) SC SCH ×2 (09:00→21:00)
[2018-06-11 09:19] LABS: HEMATOCRIT 18.7 % (42.0-52.0)
[2018-06-11 09:37] LABS: INR 1.04; PARTIAL THROMBOPLASTIN TIME 31.8 SECONDS (25.4-37.6); PROTHROMBIN TIME 13.7 SECONDS (12.1-14.4)
[2018-06-11 09:41] LABS: PERCENT SATURATION 12.8 % (19.7-50.0)
[2018-06-11 10:24] LABS: HEMOGLOBIN A1c 10.8 %
[2018-06-11] MEDS: MEROPENEM INJ 1 GM in APPROPRIATE DILUENT 1 EA IV SCH ×2 (10:54→21:31)
[2018-06-11] MEDS: LACTOBACILLUS ACIDOPHILUS CAP (BACID) PO SCH ×2 (11:05→21:31)
[2018-06-11] MEDS: OMEPRAZOLE 20 MG CAP PO SCH (11:05)
[2018-06-11] MEDS: MIRALAX *UNIT DOSE* 17GM PACKET PO SCH (11:06)
--- NOTE | 2018-06-11 11:23 | REP ---
Clinical: Acute renal failure. Technique: Real time mcgregor scale ultrasound examination using curved array transducer. Findings: Examination is limited technical factors including portable technique and patient limitations. The kidneys are normal in reniform shape with increased parenchymal echogenicity consistent with chronic medical renal disease. Right kidney measures 9.2 x 4.1 x 3.9 cm with suggestions for mild hydronephrosis. Left kidney measures 9.7 x 4.0 x 4.9 cm with suggestions for mild hydronephrosis and 1.1 cm mid pole cyst. Impression: Chronic medical renal disease. Cannot exclude mild bilateral hydronephrosis and 1.1 cm left mid pole cyst. Electronically Signed by Timmy Richey MD 06/11/2018 11:14 A
--- NOTE | 2018-06-11 11:59 | REP ---
Clinical: Diabetic ketoacidosis. Possible IVC filter. Technique: Single supine portable view of the abdomen and pelvis. Findings: Bowel gas pattern is nonspecific although fecal stasis and constipation is suggested. Scattered foreign body material most compatible with multiple prior surgeries. No obvious IVC filter identified. Skeletal structures demonstrate degenerative changes. Impression: Nonspecific bowel gas pattern. Findings as described above. No IVC filter identified. Electronically Signed by Timmy Richey MD 06/11/2018 09:19 A
--- NOTE | 2018-06-11 11:59 | REP ---
Clinical: Diabetic ketoacidosis. Comparison: 06/10/2018. Findings: Examination is limited by portable technique and poor inspiratory effort. Chronic changes are suggested. Previously identified bibasilar atelectasis appears improved. No obvious effusion. No pneumothorax. Visualized mediastinum and cardiac silhouette grossly normal. Skeletal structures intact. Impression: Limited portable examination. Bibasilar atelectasis appears to be improved. Electronically Signed by Timmy Richey MD 06/11/2018 09:18 A
[2018-06-11 14:30] LABS: CALCIUM LEVEL 7.6 MG/DL (8.8-10.2); CREATININE FOR GFR 2.53 MG/DL (0.70-1.30); GLOMERULAR FILTRATION RATE 25.9 (>35); MAGNESIUM LEVEL 1.7 MG/DL (1.8-2.4); POTASSIUM SERUM 5.7 MEQ/L (3.5-5.1)
--- NOTE | 2018-06-11 14:49 | REP ---
Clinical: Rule out retroperitoneal hematoma. Anemia. Technique: Axial noncontrast images from the lung bases to the pubic symphysis with coronal and sagittal re-formations. Comparison: 03/20/2018 Findings: Extensive subcutaneous infiltration is identified involving the lower abdomen and pelvis extending towards the right lower extremity and there is evidence for hematoma involving the right abductor muscles which measures roughly 11.0 x 12.5 cm maximal transverse diameter and extends below the level of the examination (images [id number]). Liver, spleen, pancreas, bilateral adrenal glands and kidneys demonstrate chronic stable changes including hepatic cyst in the left lobe and bilateral hydronephrosis along with chronic perinephric stranding. The patient is noted to be status post bladder resection with diverting urostomy through the right anterior abdominopelvic wall. No obvious bowel obstruction although fecal stasis and constipation is suggested. No ascites. No obvious free air. Lung bases demonstrate chronic COPD/emphysematous changes with bibasilar atelectasis and large hiatal hernia. Impression: 1. Large hematoma involving the right adductor muscles of the right lower extremity with extensive surrounding subcutaneous infiltration. 2. Bibasilar atelectasis. 3. Remainder of the examination is relatively stable compared to 03/20/2018. Electronically Signed by Timmy Richey MD 06/11/2018 02:40 P
--- NOTE | 2018-06-11 15:44 | CR ---
DATE OF CONSULTATION: 06/11/2018 REASON FOR CONSULTATION: Anticoagulation management as well as management of anemia. This is a very pleasant, 83-year-old gentleman who has come in from the [facility] living situation due to some urosepsis as well as DKA. The patient had become incredibly weak, fatigued and had been taking outpatient antibiotics therapy. On evaluation in the emergency room he was found to have a hemoglobin of approximately 5.6 and had been prescribed Lovenox for a recently diagnosed occlusive DVT on the right on 05/28/2018. DVT was found to be in the right common femoral as well as in the right popliteal area as well. There was no report of any bleeding, hematuria, nosebleeds, epistaxis or any signs of any darkening of the stool. The patient has a pertinent oncological history of undergoing a radical cystectomy, robotic assisted prostatectomy with a bilateral extended pelvic lymph node dissection and ileal conduit in September 2016. The patient had shown invasive urothelial carcinoma involving the right wall of the bladder and trigone. Two out of seven right pelvic lymph nodes were positive and zero out of six were involved. He had a Mohawk grade adenocarcinoma of the prostate with a 3+2 = 5. He was a stage T2cN0 prostate cancer and pT3bN2 invasive urothelial carcinoma. His most recent evaluation done in the oncology clinic on 03/27/2018 had shown no active disease. The patient currently on his review of systems complains of no pain. He is scarce with any of his words as far as his response but appears comfortable without pain and in no acute distress. His ileal conduit has been functioning, has clear yellow urine and have been no reports of any problems with the ileal conduit. Generalized fatigue and weakness are noted and the patient is able to engage with the examiner but has a very short attention span. SOCIAL HISTORY: He lives at [facility]. No drinking, no alcohol. FAMILY HISTORY: Is otherwise noncontributory. ALLERGIES: LATEX, POVIDONE-IODINE. On his physical examination, he is currently in the intensive care unit. His temperature is 98.6, T-max was 97.2 on admission. Recent laboratories show a blood pressure of 103/57, pulse oximetry is 95, pulse of 90. His HEENT is normocephalic, it is atraumatic. Pupils equal, round, and reactive to light. His sclerae is white, nonicteric. Nares are free of any bleeding or crusting. His oropharynx shows some mal-dentition but has some teeth worn down at the dentition line. Has the majority of his teeth still present. The oropharynx shows no signs of any blood, hemorrhagic bullae, ulcerations or lesions. His neck is supple. Chest is otherwise clear. Cardiovascular: Grade 2/6 systolic ejection murmur heard best at left sternal border, no radiation. Abdomen is otherwise soft, ileal conduit stoma is intact. Urine is yellow. Abdomen is otherwise soft. His upper extremities, he shows no cyanosis, clubbing or any edema. Minimal ecchymosis areas. On his right lower extremity the patient has a very large hematoma with tenseness in the thigh area with also tense skin in the calf region as well. Ecchymosis is mostly medial and encompasses approximately one-third of the upper right inner thigh. The patient has a good dorsalis pedis pulse as well as good capillary filling in the extremities. His left lower extremity shows no signs of any edema. In the scrotal area the patient has some swelling of the right side of the scrotum. Penis is well visualized. The left leg has no signs of any ecchymosis or hematoma. On the patient's laboratories, on 06/10/2018, WBC count was 15.8, hemoglobin was 8.7/27, MCV was 90.3, RDW was 13.4, platelets of 267, neutrophils are 86. At 8 a.m. on 06/11/2018, his WBC count went to 20,000 and his hemoglobin dropped down to 5.6/15.7, MCV is 92.1, neutrophils are 83%, lymphocytes are 7.2. On the chemistries, the patient had a sodium of 137, potassium of 5.7, chloride of 106, CO2 22, BUN of 55, creatinine of 2.53, fasting glucose was 303, calcium 7.6, magnesium 1.7, iron is 25, TIBC of 195, iron saturation of 12.5 and ferritin of 178. His CPK-MB was 3.0, troponin was less than 0.02. Total creatine kinase was 59. Coagulation studies show PT of 13.7, INR of 1.04 and APT of 31.8, fibrinogen of 38. The patient is negative for influenza A and B by RT PCR. On his current imaging studies, he has had a CT scan of the abdomen and pelvis which shows a large hematoma involving the right adductor muscles of the right lower extremity with extensive surrounding subcutaneous infiltration, basilar atelectasis. The liver, spleen and pancreas, bilateral adrenal glands and kidneys show stable changes. There is bilateral hydronephrosis along with chronic perinephric stranding. There is the obvious diverting urostomy on the right anterior abdominal pelvic wall. No obvious obstruction although the patient has fecal stasis suggesting constipation. Going onto his chest x-ray he shows a large bilateral atelectasis, no effusions are noted. Renal ultrasound shows chronic medical renal disease and shows mild hydronephrosis. The patient's vascular ultrasound of the right lower extremity shows an occlusive DVT in the right common femoral and proximal and mid femoral veins. There is a nonocclusive DVT in the distal femoral vein. IMPRESSION: At this time is anemia due to likely trauma with Lovenox creating an anticoagulation effect and blood loss through the right lower leg, possible compartment syndrome could be developing if continued bleeding, bladder as well as prostate carcinoma currently with no active disease as per his most recent scan on 03/28/2018 and shows no signs of any recurrent disease on his current scan done on 06/10/2018. Indication for anticoagulation is DVT and with the current concern for bleeding in the right lower extremity anticoagulation will be held as well as the need for an IVC filter. The patient is of limited mental capability and it is unclear whether or not he had experienced some trauma either now or recently that he simply does not recall or does not think is important. DIAGNOSES: Include developmental delay, hypertension, diabetes, chronic kidney disease, diastolic congestive heart failure, history of recurrent UTIs, coronary artery disease status post cardiac catheterization. Thank you for your confidence in this consultation.
--- NOTE | 2018-06-11 16:07 | REP ---
Clinical: Rule out fracture. Technique: Neutral and frog lateral views of the right hip. Findings: Age-related degenerative changes are appreciated. No acute fracture or dislocation. Impression: No acute fracture or dislocation. Electronically Signed by Timmy Richey MD 06/11/2018 03:59 P
--- NOTE | 2018-06-11 16:07 | REP ---
Clinical: Rule out fracture. Technique: AP and cross-table lateral views of the right femur. Findings: No acute fracture or dislocation. Age-related degenerative changes at the hip and knee joint noted. Impression: No acute fracture or dislocation. Electronically Signed by Timmy Richey MD 06/11/2018 03:58 P
[2018-06-11] MEDS: QUEtiapine FUMARATE **XR** 200MG TABLET PO SCH (17:04)
[2018-06-11] MEDS: ACETAMINOPHEN TAB 650MG DOSE (2X325MG) PO PRN (17:17)
[2018-06-11] MEDS: PATIROMER SORBITEX CALCIUM 8.4 GM POWDER PACKET (VELTASSA) PO SCH (17:45)
[2018-06-11] MEDS ORDERED: MAG SULF 1GM/100ML (MAG RUN) 1 GM in APPROPRIATE DILUENT 1 EA IV SCH (17:45)
[2018-06-11 18:21] LABS: HEMATOCRIT 23.9 % (42.0-52.0); HEMOGLOBIN 7.8 g/dl (13.5-17.5); MEAN CORPUSCULAR HEMOGLOBIN 29.3 pg (27.0-33.0); MEAN CORPUSCULAR HGB CONC 32.6 g/dl (32.0-36.5); MEAN CORPUSCULAR VOLUME 89.8 fl (80.0-96.0); PLATELET COUNT, AUTOMATED 183 10^3/uL (150-450); RED BLOOD COUNT 2.66 10^6/uL (4.30-6.10); WHITE BLOOD COUNT 18.8 10^3/uL (4.0-10.0)
--- NOTE | 2018-06-11 20:07 | REPVR ---
EXAM: CT Right Lower Extremity Without IV Contrast, Tibia Fibula EXAM DATE/TIME: 06/11/2018 7:14 PM CLINICAL HISTORY: 83 years old, male; Pain; Lower leg; Right; Additional info: Hematoma TECHNIQUE: CT of the Right lower extremity without intravenous contrast was performed. Exam focused on the tibia and fibula. All CT scans at this facility use at least one of these dose optimization techniques: automated exposure control; mA and/or kV adjustment per patient size (includes targeted exams where dose is matched to clinical indication); or iterative reconstruction. Coronal and sagittal reformatted images were created and reviewed. COMPARISON: CR Femur 06/11/2018 3:41 PM FINDINGS: Bones/joints: Insertional enthesophyte posterior calcaneus. Narrowing medial knee joint compartment. Soft tissues: Soft tissue edema throughout the leg most pronounced at the knee joint medially. Hematoma/ seroma not excluded. Clinical correlation to exclude infection versus other etiologies suggested. Vasculature: Atherosclerotic calcification in the calf arteries. IMPRESSION: 1. Soft tissue edema throughout the leg most pronounced at the knee joint medially. Clinical correlation to exclude infection versus other etiologies suggested. 2. Narrowing medial knee joint compartment. Electronically signed by: Mike Jenkins On 06/11/2018 20:07:44 PM
--- NOTE | 2018-06-11 20:36 | REPVR ---
EXAM: CT Right Lower Extremity Without IV Contrast, Femur EXAM DATE/TIME: 06/11/2018 7:14 PM CLINICAL HISTORY: 83 years old, male; Pain; Thigh; Right; Additional info: Right thigh hematoma TECHNIQUE: CT of the Right lower extremity without intravenous contrast was performed. Exam focused on the femur. All CT scans at this facility use at least one of these dose optimization techniques: automated exposure control; mA and/or kV adjustment per patient size (includes targeted exams where dose is matched to clinical indication); or iterative reconstruction. Coronal and sagittal reformatted images were created and reviewed. COMPARISON: CR Femur 06/11/2018 3:41 PM FINDINGS: Bones/joints: Marked subcutaneous inflammation demonstrated in the lateral thigh extending to the level of the knee joint. Soft tissues: Multiple large mixed density masses in the medial thigh adjacent to the adductor muscles consistent with hematomas. In aggregate these measure 18.5 x 25 x 10 cm. Clinical correlation to exclude an underlying mass suggested. IMPRESSION: 1. Marked subcutaneous inflammation demonstrated in the lateral thigh extending to the level of the knee joint. 2. Multiple large mixed density masses in the medial thigh adjacent to the adductor muscles consistent with hematomas which measure in total 18.5 x 25 x 10 cm. Clinical correlation to exclude an underlying mass suggested. Electronically signed by: Mike Jenkins On 06/11/2018 20:35:54 PM
--- NOTE | 2018-06-11 20:42 | IPN ---
DATE: 06/11/2018 Patient admitted overnight. He is a very poor historian. Denies any chest pain, pressure or discomfort. Reported hungry, wants to eat. Further history limited. Vital signs; temperature 99.1, pulse 85, respiratory 22, blood pressure 149/74, pulse ox 96% on room air. LABORATORY: WBC 20.1, hematocrit and hemoglobin 5.6/17.5, platelets 225, retic count 3.6. Chemistry: Sodium 140, potassium 5.2, chloride 109, bicarbonate 23, BUN 57, creatinine 2.49. PHYSICAL EXAMINATION: GENERAL: Patient mildly confused in no acute distress. HEENT: Normocephalic, atraumatic. CARDIAC: Regular S1, S2. PULMONARY: Bilaterally clear. ABDOMEN: Soft, non-tender. Positive bowel sounds. EXTREMITIES: Right hip with large hematoma. DP/PT pulses intact bilateral. Right lower extremity mildly edematous compared to left. ASSESSMENT AND PLAN: This is an 83 to male patient with underlying medical history of mild mental retardation from [facility]. Hypertension, diabetes type 2 poorly controlled, chronic kidney disease stage 4, diastolic congestive heart failure, recurrent urinary tract infection, history of bladder and prostate cancer status post radical cystectomy and prostatectomy, with an ileal conduit, coronary artery disease with myocardial infarction ([place]) and recently diagnosed with deep vein thrombosis presented with weakness and episode of near syncope. Found to be in early DKA. 1. Early DKA. Patient bridges to basal bolus insulin. Beta hydroxy is negative. Continue to follow finger stick. A1c appreciated. Patient will likely need insulin as outpatient. 2. Generalized weakness and near syncopal episode. Possibly due to underlying infection versus acute blood loss anemia. Chest x-ray appreciated. Given intense seriousness of patient's condition, patient antibiotics has been escalated to meropenem. Will continue to monitor. 3. Acute blood loss anemia secondary to right thigh hematoma. X-ray negative for fracture. Consulted hematology/oncology. Patient's Lovenox on hold. Will get an IVC filter given history of deep vein thrombosis recent. Dr. Melissa has been on consult. Will monitor for compartment syndrome with peripheral pulses. Further recommendation as per vascular surgery Dr. Melissa. Patient will need IVC filter. X-rays appreciated and transfuse 2 units PRBCs. Follow up hemoglobin and hematocrit. 4. Chronic kidney disease stage 4 with hyperkalemia. Consulted nephrology. IV fluids. Veltassa has been ordered. Will repeat basic metabolic panel. 5. Coronary artery disease. Continue statin. 6. Depression. Continue current medication. 7. Iron deficiency anemia with acute blood loss anemia. Iron supplementation has been added with vitamin C as well as Senna. 8. Deep vein thrombosis. Given acute blood loss anemia hematology/oncology has been consulted. Patient's Lovenox is on hold. Will get IVC filter. 9. Gastroesophageal reflux disease. Continue PPI. 10. Constipation. Continue current medication. 11. Deep vein thrombosis prophylaxis. Thromboembolic deterrent stockings (TEDS) and sequential. Will get IVC filter. Avoid anticoagulation given acute blood loss anemia secondary to right thigh hematoma. DISPOSITION: Pending clinical improvement, further recommendation as per nephrology and vascular surgery.
[2018-06-11] MEDS ORDERED: PARoxetine 20 MG TAB PO SCH (21:00)
[2018-06-11] MEDS ORDERED: CARBAMIDE PEROXIDE 6.5% OTIC SOLN 15ML AU SCH (21:00)
[2018-06-11] MEDS: PRAVASTATIN 20 MG TAB PO SCH (21:31)
[2018-06-11] MEDS: SENOKOT S TAB PO SCH (21:31)
[2018-06-11] MEDS: ASCORBIC ACID 250 MG TAB PO SCH (21:31)
[2018-06-11] MEDS: FERROUS SULFATE 325MG TAB PO SCH (21:31)
[2018-06-11] MEDS: PARoxetine 20 MG TAB PO SCH (21:40)
[2018-06-11 22:21] LABS: POTASSIUM RANDOM URINE 41.3 MEQ/L; TOTAL PROTEIN,RANDOM URINE 32.5 MG/DL (0.0-12.0)
--- NOTE | 2018-06-11 22:49 | CR.PDOC ---
General Date of Admission Jun 10, 2018 at 23:19 Attending Physician: ESTEBAN FALL MD Chief Complaint The patient is a 83-year-old male admitted with a reason for visit of Dka(Diabetic Ketoacidoses), Uti. Source: Old records, [facility] Caregiver/Aid Home Medications Scheduled (Senna Plus 8.6-50 mg) 1 Tab Tab, 1 TAB PO BID, (Reported) Calcium/Vitamin D (Oscal 500/200 D-3 500-200 mg-Unit) 1 Tab Tab, 1 TAB PO BID, (Reported) Carbamide Peroxide (Debrox) 6.5 % [place], 1 DROP AU 2XW, (Reported) TUES, SAT AT BEDTIME Docusate Sodium (Colace) 100 Mg Cap, 100 MG PO BID, (Reported) Enoxaparin Sodium (Enoxaparin Sodium) 40 Mg/0.4 Ml Inj, 80 MG SC BID, (Reported) Glimepiride (Glimepiride) 2 Mg Tab, 6 MG PO DAILY, (Reported) Lactobacillus Acidophilus (Bacid) 1 Tab Tab, 1 TAB PO BID, (Reported) Omeprazole (Omeprazole) 20 Mg Cap, 20 MG PO QAM, (Reported) Paroxetine Hydrochloride (Paxil) 40 Mg Tab, 40 MG PO QHS, (Reported) give with Paxil 20mg Paroxetine Hydrochloride (Paxil) 20 Mg Tab, 20 MG PO QHS, (Reported) give with Paxil 40mg Polyethylene Glycol (Miralax) 1 Pow Pow, 17 GM PO QAM, (Reported) Pravastatin Sod (Pravastatin Sodium) 40 Mg Tab, 40 MG PO QHS, (Reported) Quetiapine Fumarate (Seroquel Xr) 200 Mg Bettina, 200 MG PO DAILY, (Reported) TAKES @ 1630 Sitagliptin Phosphate (Januvia) 25 Mg Tab, 25 MG PO QHS, (Reported) Scheduled PRN Acetaminophen (Tylenol) 325 Mg Tab, 650 MG PO Q4H PRN for PAIN / FEVER, (Reported) Bisacodyl (Bisacodyl) 10 Mg Sup, 10 MG MN DAILY PRN for CONSTIPATION, (Reported) ON DAY 4 WITHOUT A BM Allergies Coded Allergies: Povidone Iodine (Verified Allergy, Intermediate, Hives, 11/02/16) Latex (Verified Adverse Reaction, Intermediate, risk, 11/02/16) VITAL SIGNS VITAL SIGNS Vital Signs Date Time Temp Pulse Resp B/P (MAP) Pulse Ox O2 Delivery O2 Flow Rate FiO2 06/11/18 20:05 98.6 95 18 116/62 (80) 95 Room Air 06/11/18 19:50 98.7 95 18 106/66 (79) 93 Room Air 06/11/18 17:07 99.1 85 22 149/74 (99) 96 Room Air 06/11/18 16:55 99.1 82 22 165/75 (105) 95 Room Air 06/11/18 16:30 99.0 85 20 137/66 (89) 93 Room Air 06/11/18 15:55 99.0 82 20 128/69 (88) 93 Room Air 06/11/18 15:28 98.7 83 20 119/60 (79) 92 Room Air 06/11/18 15:14 98.7 82 22 123/60 (81) 91 Room Air 06/11/18 15:04 98.5 87 23 123/61 (81) 93 Room Air 06/11/18 14:00 98.4 90 22 133/64 (87) 93 Room Air 06/11/18 13:00 98.5 86 20 135/62 (86) 94 Room Air 06/11/18 12:15 98.5 92 22 117/65 (82) 94 Room Air 06/11/18 12:00 98.2 92 22 115/74 (88) 94 Room Air 06/11/18 11:00 92 119/63 (81) 96 06/11/18 10:00 98.4 95 20 127/66 (86) 96 Room Air 06/11/18 09:00 94 119/59 (79) 99 06/11/18 08:00 98.1 88 23 114/64 (81) 95 Room Air 06/11/18 07:00 93 115/61 (79) 97 06/11/18 05:00 90 103/57 (72) 95 06/11/18 04:00 98.6 95 18 112/66 (81) 99 Nasal Cannula 2.0 06/11/18 03:00 81 116/57 (76) 06/11/18 02:13 84 119/57 (77) 06/11/18 00:47 98.2 74 18 129/57 (81) 98 Nasal Cannula 2.0 06/11/18 00:15 76 131/60 (83) 91 06/11/18 00:00 95 96 06/10/18 23:45 70 104/55 (71) 100 06/10/18 23:30 72 118/59 (78) 98 06/10/18 23:15 75 103/54 (70) 94 06/10/18 23:00 75 107/52 (70) 99 l Intake & Output 06/11/18 06:00 Intake Total 1507 ml Output Total 200 ml Balance 1307 ml Laboratory Tests 06/10/18 23:03: Lactic Acid Followup at 4 Hours 5.1*H 06/10/18 23:10: Bedside Glucose (Misc Panel) 203H 06/10/18 23:30: Blood Urea Nitrogen 52H, Creatinine 2.47H, Sodium Level 143#, Potassium Level 4.7, Chloride Level 111H, Carbon Dioxide Level 24, Calcium Level 8.3L, Aspartate Amino Transf (AST/SGOT) 29, Alanine Aminotransferase (ALT/SGPT) 51, Alkaline Phosphatase 83, Total Bilirubin 0.2, Total Protein 5.3L, Albumin 2.3L, Anion Gap 8, Glomerular Filtration Rate 26.6L, Fasting Glucose 179H, Lactic Acid Level 4.4*H, Albumin/Globulin Ratio 0.77L, B-Hydroxybutyrate 0.75 06/10/18 23:40: Blood Gas Bicarbonate Standard 23.8, Arterial Blood pH 7.394, Arterial Blood Partial Pressure CO2 40.1, Arterial Blood Partial Pressure O2 118.4H, Arterial Blood Total CO2 25.2, Arterial Blood HCO3 23.9, Arterial Blood Base Excess -0.9, Arterial Blood Oxygen Saturation 98.4 06/11/18 00:15: Bedside Glucose (Misc Panel) 160H 06/11/18 00:58: Bedside Glucose (Misc Panel) 150H 06/11/18 01:30: Blood Urea Nitrogen 55H, Creatinine 2.43H, Sodium Level 143, Potassium Level 5.0, Chloride Level 111H, Carbon Dioxide Level 23, Calcium Level 8.1L, Anion Gap 9, Glomerular Filtration Rate 27.1L, Fasting Glucose 162H, B-Hydroxybutyrate 0.92 06/11/18 02:07: Bedside Glucose (Misc Panel) 158H 06/11/18 03:07: Bedside Glucose (Misc Panel) 178H 06/11/18 03:35: Blood Urea Nitrogen 55H, Creatinine 2.49H, Sodium Level 142, Potassium Level 5.1, Chloride Level 110H, Carbon Dioxide Level 24, Calcium Level 8.2L, Anion Gap 8, Glomerular Filtration Rate 26.4L, Fasting Glucose 180H, B-Hydroxybutyrate 1.07 06/11/18 04:03: Bedside Glucose (Misc Panel) 203H 06/11/18 05:04: Bedside Glucose (Misc Panel) 198H 06/11/18 05:20: Blood Urea Nitrogen 57H, Creatinine 2.49H, Sodium Level 140, Potassium Level 5.2H, Chloride Level 109H, Carbon Dioxide Level 23, Calcium Level 8.0L, Anion Gap 8, Glomerular Filtration Rate 26.4L, Fasting Glucose 200H, Lactic Acid Followup at 4 Hours 2.4*H, B-Hydroxybutyrate 1.25 06/11/18 05:56: Bedside Glucose (Misc Panel) 214H 06/11/18 07:17: Bedside Glucose (Misc Panel) 233H 06/11/18 08:10: White Blood Count 20.1H, Red Blood Count 1.90L, Hemoglobin 5.6#*L, Hematocrit 17.5L, Mean Corpuscular Volume 92.1, Mean Corpuscular Hemoglobin 29.5, Mean Corpuscular Hemoglobin Concent 32.0, Red Cell Distribution Width 13.9, Platelet Count 225, Neutrophils (%) (Auto) 83.7H, Lymphocytes (%) (Auto) 7.2L, Monocytes (%) (Auto) 6.6H, Eosinophils (%) (Auto) 0.0, Basophils (%) (Auto) 0.1, Neutrophils # (Auto) 16.8H, Lymphocytes # (Auto) 1.5, Monocytes # (Auto) 1.3H, Eosinophils # (Auto) 0.0, Basophils # (Auto) 0.0, Immature Granulocyte % (Auto) 2.4, Nucleated Red Blood Cells % (auto) 0.1H, Estimated Mean Plasma Glucose 263H, Hemoglobin A1c 10.8, Total Creatine Kinase 59#, Creatine Kinase MB 3.0, Creatine Kinase MB Relative Index 5.59H, Troponin I < 0.02 06/11/18 08:24: Bedside Glucose (Misc Panel) 238H 06/11/18 09:05: Hemoglobin 6.0*L, Hematocrit 18.7L, Reticulocyte # (auto) 73.7, Differential Slide Review Report, Peripheral Blood Smear Path Consult PERIPHERAL SMEAR, Percent Reticulocyte Count 3.6H, Reticulocyte Hemoglobin Equivalent 36.4H, Haptoglobin [Pending], Prothrombin Time 13.7, Prothromb Time International Ratio 1.04, Activated Partial Thromboplast Time 31.8, Fibrinogen 344, Iron Level 25L, Total Iron Binding Capacity 195L, Transferrin % Saturation 12.8L, Ferritin 178, Lactate Dehydrogenase 176, Vitamin B12 Level [Pending], Folate [Pending] 06/11/18 10:52: Bedside Glucose (Misc Panel) 236H 06/11/18 12:28: Bedside Glucose (Misc Panel) 246H 06/11/18 13:49: Blood Urea Nitrogen 55H, Creatinine 2.53H, Sodium Level 137, Potassium Level 5.7H, Chloride Level 106, Carbon Dioxide Level 22, Calcium Level 7.6L, Anion Gap 9, Glomerular Filtration Rate 25.9L, Fasting Glucose 303H, Magnesium Level 1.7L 06/11/18 16:56: Bedside Glucose (Misc Panel) 227H 06/11/18 18:09: White Blood Count 18.8H, Red Blood Count 2.66L, Hemoglobin 7.8L, Hematocrit 23.9L, Mean Corpuscular Volume 89.8, Mean Corpuscular Hemoglobin 29.3, Mean Corpuscular Hemoglobin Concent 32.6, Red Cell Distribution Width 14.1, Platelet Count 183, Nucleated Red Blood Cells % (auto) 0.4H 06/11/18 21:09: Bedside Glucose (Misc Panel) 249H 06/11/18 21:50: Urine Random Osmolality 392L, Urine Random Creatinine 96.0, Urine Random Total Protein 32.5H, Urine Random Sodium 22, Urine Random Potassium 41.3, Urine Random Chloride 21 Current Medications Medications (Trade) Dose Ordered Sig/Monica Route PRN Reason Start Time Stop Time Status Last Admin Dose Admin Acetaminophen (Tylenol Tab) 650 mg Q4H PRN PO PAIN / FEVER 06/10/18 22:45 06/11/18 17:17 650 MG Ascorbic Acid (Vitamin C) 250 mg BID PO 06/11/18 21:00 06/11/18 21:31 250 MG Carbamide Perox/ Anhydrous Glycerin (Debrox) 1 drop TuSa@2100 AU 06/11/18 21:00 06/15/18 20:59 06/11/18 21:30 1 DROP Ferrous Sulfate (Ferrous Sulfate) 325 mg BID PO 06/11/18 21:00 06/11/18 21:31 325 MG Insulin Human Lispro (HumaLOG INSULIN) SEE PROTOCOL TABLE AC SC 06/11/18 07:30 06/11/18 17:05 6 UNITS Lactobacillus Acidophilus (Bacid) 1 ea BID PO 06/11/18 09:00 06/11/18 21:31 1 EA Meropenem 1 gm/IV Miscellaneous Supplies 50 ml @ 100 mls/hr Q12H IV 06/11/18 09:00 06/11/18 21:31 100 MLS/HR Non-Formulary Medication (Insulin Iv Rate Change Documentation ml/ Hr) ASDIRECTED XX 06/10/18 22:30 07/10/18 22:29 06/11/18 05:59 2 Omeprazole (PriLOSEC) 20 mg QAM PO 06/11/18 09:00 06/11/18 11:05 20 MG Paroxetine HCl (PAXil) 60 mg QHS PO 06/11/18 21:00 06/11/18 21:40 60 MG Polyethylene Glycol (Miralax) 1 pkt QAM PO 06/11/18 09:00 06/11/18 11:06 1 PKT Pravastatin Sodium (Pravachol) 40 mg QHS PO 06/11/18 21:00 06/11/18 21:31 40 MG Quetiapine Fumarate (SEROquel XR) 200 mg DAILY@1600 PO 06/11/18 16:00 06/11/18 17:04 200 MG Senna/Docusate Sodium (Senokot S) 1 tab BID PO 06/11/18 21:00 06/11/18 21:31 1 TAB Sodium Chloride 1,000 ml @ 100 mls/hr Q10H IV 06/11/18 07:45 06/11/18 08:45 100 MLS/HR Laboratory Tests 06/10/18 13:30 Red Blood Count 2.99 L, Mean Corpuscular Volume 90.3, Mean Corpuscular Hemoglobin 29.1, Mean Corpuscular Hemoglobin Concent 32.2, Red Cell Distribution Width 13.4, Neutrophils (%) (Auto) 86.5 H, Lymphocytes (%) (Auto) 5.2 L, Monocytes (%) (Auto) 5.8 H, Eosinophils (%) (Auto) 0.1, Basophils (%) (Auto) 0.3, Neutrophils # (Auto) 13.7 H, Lymphocytes # (Auto) 0.8 L, Monocytes # (Auto) 0.9 H, Eosinophils # (Auto) 0.0, Basophils # (Auto) 0.0 06/10/18 23:30 Calcium Level 8.3 L, Aspartate Amino Transf (AST/SGOT) 29, Alanine Aminotransferase (ALT/SGPT) 51, Alkaline Phosphatase 83, Total Bilirubin 0.2, Total Protein 5.3 L, Albumin 2.3 L 06/11/18 01:30 Calcium Level 8.1 L 06/11/18 03:35 Calcium Level 8.2 L 06/11/18 05:20 Calcium Level 8.0 L 06/11/18 08:10 Red Blood Count 1.90 L, Mean Corpuscular Volume 92.1, Mean Corpuscular Hemoglobin 29.5, Mean Corpuscular Hemoglobin Concent 32.0, Red Cell Distribution Width 13.9, Neutrophils (%) (Auto) 83.7 H, Lymphocytes (%) (Auto) 7.2 L, Monocytes (%) (Auto) 6.6 H, Eosinophils (%) (Auto) 0.0, Basophils (%) (Auto) 0.1, Neutrophils # (Auto) 16.8 H, Lymphocytes # (Auto) 1.5, Monocytes # (Auto) 1.3 H, Eosinophils # (Auto) 0.0, Basophils # (Auto) 0.0 06/11/18 09:05 06/11/18 13:49 Calcium Level 7.6 L 06/11/18 18:09 Red Blood Count 2.66 L, Mean Corpuscular Volume 89.8, Mean Corpuscular Hemoglobin 29.3, Mean Corpuscular Hemoglobin Concent 32.6, Red Cell Distribution Width 14.1 Laboratory Tests Test 06/10/18 23:10 06/11/18 00:15 06/11/18 00:58 06/11/18 02:07 Range/Units Bedside Glucose (Misc Panel) 203 160 150 158 83-110 MG/DL Test 06/11/18 03:07 06/11/18 04:03 06/11/18 05:04 06/11/18 05:56 Range/Units Bedside Glucose (Misc Panel) 178 203 198 214 83-110 MG/DL Test 06/11/18 07:17 06/11/18 08:24 06/11/18 10:52 06/11/18 12:28 Range/Units Bedside Glucose (Misc Panel) 233 238 236 246 83-110 MG/DL Test 06/11/18 16:56 06/11/18 21:09 Range/Units Bedside Glucose (Misc Panel) 227 249 83-110 MG/DL Microbiology 06/10/18 Blood Culture, Received Pending 06/10/18 Blood Culture, Received Pending 06/11/18 MRSA Screen, Received Pending 06/10/18 Urine Culture, Received Pending Objective Physical Examination General Exam: Positive: Alert, Mild Distress Neck Exam: Positive: +2 carotid pulse wo bruit Heart Exam: Positive: Rate Normal Telemetry: Positive: No significant arrhythmia Abdomen Exam: Positive: Normal bowel sounds Date of Service The study was performed and reviewed by myself on 06/12/18. NOTE NAME: JONI MEJIA DATE OF : 1935 BUSINESS NUMBER: [id number] AGE: 83 SEX: M REPORT #: [id number] ROOM: ICU TECHNOLOGIST: LAILA DOCTOR: Tod Melissa MD Ordered for Date&Time: 06/11/18 1847 cc: [~ rep ct ivnm] Service Date&Time: 06/11/18 1914 EXAMINATION REQUESTED: CT-Femur WITHOUT CONTRAST RIGHT REASON FOR PATIENT VISIT: DKA(DIABETIC KETOACIDOSES), UTI REASON FOR EXAMINATION: RIGHT THIGH HEMATOMA EXAM: CT Right Lower Extremity Without IV Contrast, Femur EXAM DATE/TIME: 06/11/2018 7:14 PM CLINICAL HISTORY: 83 years old, male; Pain; Thigh; Right; Additional info: Right thigh hematoma TECHNIQUE: CT of the Right lower extremity without intravenous contrast was performed. Exam focused on the femur. All CT scans at this facility use at least one of these dose optimization techniques: automated exposure control; mA and/or kV adjustment per patient size (includes targeted exams where dose is matched to clinical indication); or iterative reconstruction. Coronal and sagittal reformatted images were created and reviewed. COMPARISON: CR Femur 06/11/2018 3:41 PM FINDINGS: Bones/joints: Marked subcutaneous inflammation demonstrated in the lateral thigh extending to the level of the knee joint. Soft tissues: Multiple large mixed density masses in the medial thigh adjacent to the adductor muscles consistent with hematomas. In aggregate these measure 18.5 x 25 x 10 cm. Clinical correlation to exclude an underlying mass suggested. IMPRESSION: 1. Marked subcutaneous inflammation demonstrated in the lateral thigh extending to the level of the knee joint. 2. Multiple large mixed density masses in the medial thigh adjacent to the adductor muscles consistent with hematomas which measure in total 18.5 x 25 x 10 cm. Clinical correlation to exclude an underlying mass suggested. Electronically signed by: Mike Jenkins On 06/11/2018 20:35:54 PM NAME: JONI MEJIA DATE OF : 1935 BUSINESS NUMBER: [id number] AGE: 83 SEX: M REPORT #: [id number] ROOM: ICU TECHNOLOGIST: [facility] DOCTOR: Tod Melissa MD Ordered for Date&Time: 06/11/181858 cc: [~ rep ct ivnm] Service Date&Time: 06/11/181913 EXAMINATION REQUESTED: CT-Tib/Fib WITHOUT CONTRAST RIGHT REASON FOR PATIENT VISIT: DKA(DIABETIC KETOACIDOSES), UTI REASON FOR EXAMINATION: hematoma EXAM: CT Right Lower Extremity Without IV Contrast, Tibia Fibula EXAM DATE/TIME: 06/11/2018 7:14 PM CLINICAL HISTORY: 83 years old, male; Pain; Lower leg; Right; Additional info: Hematoma TECHNIQUE: CT of the Right lower extremity without intravenous contrast was performed. Exam focused on the tibia and fibula. All CT scans at this facility use at least one of these dose optimization techniques: automated exposure control; mA and/or kV adjustment per patient size (includes targeted exams where dose is matched to clinical indication); or iterative reconstruction. Coronal and sagittal reformatted images were created and reviewed. COMPARISON: CR Femur 06/11/2018 3:41 PM FINDINGS: Bones/joints: Insertional enthesophyte posterior calcaneus. Narrowing medial knee joint compartment. Soft tissues: Soft tissue edema throughout the leg most pronounced at the knee joint medially. Hematoma/ seroma not excluded. Clinical correlation to exclude infection versus other etiologies suggested. Vasculature: Atherosclerotic calcification in the calf arteries. IMPRESSION: 1. Soft tissue edema throughout the leg most pronounced at the knee joint medially. Clinical correlation to exclude infection versus other etiologies suggested. 2. Narrowing medial knee joint compartment. Electronically signed by: Mike Jenkins On 06/11/2018 20:07:44 PM NAME: JONI MEJIA DATE OF : 1935 AGE: 83 SEX: M REPORT #: [id number] [facility] KEN DOCTOR: BI ROSENBAUM MD Ordered for Date&Time: 05/28/18 1218 cc: [~ rep ct ivnm] Service Date&Time: 05/28/18 1228 EXAMINATION REQUESTED: Duplex, Ext,LOWER veins,unilat RIGHT REASON FOR PATIENT VISIT: EDEMA, R/O DVT RT LEG REASON FOR EXAM/COMMENT: EDEMA, R/O DVT Right lower extremity duplex veins History: Edema There is occlusive thrombosis in the right common femoral vein and proximal and mid femoral vein. There is nonocclusive thrombus in the distal femoral vein. The popliteal vein is patent. IMPRESSION: There is occlusive deep venous thrombosis in the right common femoral and proximal and mid femoral vein. There is nonocclusive deep venous thrombosis in the distal femoral vein. Electronically Signed by Harish Mcdonald MD 05/28/2018 03:10 P Assessment/Plan Assessment 83 YO male with large RLE hematoma and good perfusion of RLE. DVT with inability to anticoagulate. Plan No surgical intervention required at this time for RLE hematoma. IVC filter for PE reduction in AM 06/12/18. Tod Melissa MD Jun 11, 2018 22:49
[2018-06-11 23:14] LABS: HEMOGLOBIN 8.4 g/dl (13.5-17.5)
[2018-06-11 23:28] LABS: CALCIUM LEVEL 7.5 MG/DL (8.8-10.2); CREATININE FOR GFR 2.55 MG/DL (0.70-1.30); GLOMERULAR FILTRATION RATE 25.7 (>35); POTASSIUM SERUM 5.2 MEQ/L (3.5-5.1)
[2018-06-12] VITALS (23 sets, daily range): BP systolic 117–168; BP diastolic 56–75
[2018-06-12 04:51] LABS: HEMATOCRIT 24.4 % (42.0-52.0); HEMOGLOBIN 8.1 g/dl (13.5-17.5); MEAN CORPUSCULAR HEMOGLOBIN 29.9 pg (27.0-33.0); MEAN CORPUSCULAR HGB CONC 33.2 g/dl (32.0-36.5); PLATELET COUNT, AUTOMATED 172 10^3/uL (150-450); RED BLOOD COUNT 2.71 10^6/uL (4.30-6.10); WHITE BLOOD COUNT 18.3 10^3/uL (4.0-10.0)
[2018-06-12 04:58] LABS: CALCIUM LEVEL 7.7 MG/DL (8.8-10.2); CREATININE FOR GFR 2.48 MG/DL (0.70-1.30); GLOMERULAR FILTRATION RATE 26.5 (>35)
[2018-06-12] MEDS: NS 1,000 ML IV SCH ×3 (05:33→16:49)
[2018-06-12] MEDS: HumaLOG INSULIN (NovoLOG) PER UNIT SC SCH ×4 (07:30→21:27)
[2018-06-12 07:38] LABS: C REACTIVE PROTEIN QUANTITATIV 3.61 MG/DL (0.00-0.30)
[2018-06-12] MEDS: SENOKOT S TAB PO SCH ×2 (09:00→21:26)
[2018-06-12] MEDS ORDERED: LEVEMIR (INSULIN DETEMIR) 1 UNITS/0.01ML SC SCH (09:00)
[2018-06-12] MEDS ORDERED: ENOXAPARIN 80 MG/0.8 ML SYRINGE (J1650) SC SCH (09:00)
[2018-06-12] MEDS: MIRALAX *UNIT DOSE* 17GM PACKET PO SCH (09:00)
[2018-06-12] MEDS: MEROPENEM INJ 1 GM in APPROPRIATE DILUENT 1 EA IV SCH ×2 (09:49→21:27)
--- NOTE | 2018-06-12 10:21 | IPNPDOC ---
Subjective General Date/Time Seen The patient was seen on 06/12/18 at 10:15. Subject Chief Complaint/History The patient is a 83-year-old male admitted with a reason for visit of Dka(Diabetic Ketoacidoses), Uti. Current Medications Current Medications Current Medications Acetaminophen (Tylenol Tab) 650 mg Q4H PRN PO PAIN / FEVER Last administered on 06/11/18at 17:17; Start 06/10/18 at 22:45 Ascorbic Acid (Vitamin C) 250 mg BID PO Last administered on 06/11/18at 21:31; Start 06/11/18 at 21:00 Bisacodyl (Dulcolax Suppository) 10 mg DAILY PRN AL CONSTIPATION; Start 06/10/18 at 22:45 Carbamide Perox/ Anhydrous Glycerin (Debrox) 1 drop TuSa@2100 AU Last administ ered on 06/11/18at 21:30; Start 06/11/18 at 21:00; Stop 06/15/18 at 20:59 Ceftriaxone Sodium 1 gm/ Dextrose 50 ml @ 100 mls/hr Q24H IV Last administered on 06/11/18at 00:56; Start 06/11/18 at 01:00; Stop 06/11/18 at 08:38; Status DC Dextrose (Dextrose 50%) 25 ml ASDIRECTED PRN IV SEE LABEL COMMENTS; Start 06/11/18 at 01:15 Enoxaparin Sodium (Lovenox) 40 mg BID SC ; Start 06/11/18 at 21:00; Stop 06/11/18 at 21:00; Status DC Enoxaparin Sodium (Lovenox) 70 mg DAILY SC Last administered on 06/11/18at 10:57; Start 06/11/18 at 09:00; Stop 06/11/18 at 12:03; Status DC Enoxaparin Sodium (Lovenox) 70 mg DAILY SC ; Start 06/12/18 at 09:00; Stop 06/12/18 at 09:00; Status DC Ferrous Sulfate (Ferrous Sulfate) 325 mg BID PO Last administered on 06/11/18at 21:31; Start 06/11/18 at 21:00 Glucagon (Glucagon) 1 mg ASDIRECTED PRN SC SEE LABEL COMMENTS; Start 06/11/18 at 01:15 Glucose (Glucose) 16 GM ASDIRECTED PRN PO SEE LABEL COMMENTS; Start 06/11/18 at 01:15 Home Med (Med Rec Complete!) ASDIRECTED XX ; Start 06/10/18 at 18:00; Stop 06/10/18 at 18:00; Status DC Insulin Detemir (Levemir Insulin) 10 units DAILY SC Last administered on 06/11/18at 08:27; Start 06/11/18 at 09:00; Stop 06/11/18 at 17:47; Status DC Insulin Detemir (Levemir Insulin) 14 units DAILY SC ; Start 06/12/18 at 09:00 Insulin Human Lispro (HumaLOG INSULIN) SEE PROTOCOL TABLE AC SC Last administered on 06/11/18at 17:05; Start 06/11/18 at 07:30 Insulin Human Lispro (HumaLOG INSULIN) SEE PROTOCOL TABLE QHS SC ; Start 06/11/18 at 21:00 Insulin Human Regular 100 units/ Sodium Chloride 100 ml @ 10 mls/hr Q10H IV Last administered on 06/10/18at 19:55; Start 06/10/18 at 19:55; Stop 06/11/18 at 02:21; Status DC Insulin Human Regular 100 units/ Sodium Chloride 100 ml @ 1 mls/hr Q24H IV Last administered on 06/11/18at 05:57; Start 06/11/18 at 02:00; Stop 06/11/18 at 10:00; Status DC Insulin Human Regular 100 units/ Sodium Chloride 100 ml @ 8 mls/hr [id number] IV Last administered on 06/10/18at 18:03; Start 06/10/18 at 17:31; Stop 06/10/18 at 19:57; Status DC Lactobacillus Acidophilus (Bacid) 1 ea BID PO Last administered on 06/11/18at 21 :31; Start 06/11/18 at 09:00 Magnesium Sulfate/ Dextrose 1 gm/IV Miscellaneous Supplies 100 ml @ 100 mls/hr ASDIRECTED IV Last administered on 06/11/18at 22:26; Start 06/11/18 at 17:45; Stop 06/11/18 at 21:37; Status DC Meropenem 1 gm/IV Miscellaneous Supplies 50 ml @ 100 mls/hr Q12H IV Last administered on 06/12/18at 09:49; Start 06/11/18 at 09:00 Non-Formulary Medication (Insulin Iv Rate Change Documentation ml/ Hr) ASDIRECTED XX ; Start 06/10/18 at 17:45; Stop 06/10/18 at 20:00; Status DC Non-Formulary Medication (Insulin Iv Rate Change Documentation ml/ Hr) ASDIRECTED XX Last administered on 06/10/18at 19:59; Start 06/10/18 at 20:00; Stop 06/10/18 at 23:15; Status DC Non-Formulary Medication (Insulin Iv Rate Change Documentation ml/ Hr) ASDIRECTED XX Last administered on 06/11/18at 05:59; Start 06/10/18 at 22:30; Stop 07/10/18 at 22:29 Omeprazole (PriLOSEC) 20 mg QAM PO Last administered on 06/11/18at 11:05; Start 06/11/18 at 09:00 Paroxetine HCl (PAXil) 20 mg QHS PO ; Start 06/11/18 at 21:00; Stop 06/11/18 at 21:00; Status DC Paroxetine HCl (PAXil) 60 mg QHS PO Last administered on 06/11/18at 21:40; Start 06/11/18 at 21:00 Patiromer (Veltassa) 8.4 gm DAILY@1200 PO ; Start 06/11/18 at 17:45 Polyethylene Glycol (Miralax) 1 pkt QAM PO Last administered on 06/11/18at 11:06; Start 06/11/18 at 09:00 Potassium Chloride/Dextrose/ Sod Cl 1,000 ml @ 100 mls/hr Q10H IV Last administered on 06/11/18at 01:20; Start 06/11/18 at 01:15; Stop 06/11/18 at 07:51; Status DC Potassium Chloride/Sodium Chloride 1,000 ml @ 250 mls/hr Q4H IV Last administered on 06/11/18at 00:00; Start 06/10/18 at 19:15; Stop 06/11/18 at 01:07; Status DC Pravastatin Sodium (Pravachol) 40 mg QHS PO Last administered on 06/11/18at 21:31; Start 06/11/18 at 21:00 Quetiapine Fumarate (SEROquel XR) 200 mg DAILY@1600 PO Last administered on 06/11/18at 17:04; Start 06/11/18 at 16:00 Senna/Docusate Sodium (Senokot S) 1 tab BID PO Last administered on 06/11/18at 21:31; Start 06/11/18 at 21:00 Sodium Chloride 1,000 ml @ 100 mls/hr Q10H IV Last administered on 06/12/18at 05:33; Start 06/11/18 at 07:45 Allergies Coded Allergies: Povidone Iodine (Verified Allergy, Intermediate, Hives, 11/02/16) Latex (Verified Adverse Reaction, Intermediate, risk, 11/02/16) VITAL SIGNS VITAL SIGNS Vital Signs Date Time Temp Pulse Resp B/P (MAP) Pulse Ox O2 Delivery O2 Flow Rate FiO2 06/12/18 05:00 87 126/60 (82) 06/12/18 04:00 98.3 90 131/65 (87) 95 Room Air 06/12/18 03:00 88 122/66 (84) 06/12/18 02:00 86 168/73 (104) 06/12/18 01:00 84 132/59 (83) 06/12/18 00:00 98.5 89 138/67 (90) 96 Room Air 06/11/18 23:00 86 136/65 (88) Room Air 06/11/18 21:50 98.9 89 18 121/72 (88) 95 Room Air 06/11/18 20:05 98.6 95 18 116/62 (80) 95 Room Air 06/11/18 19:50 98.7 95 18 106/66 (79) 93 Room Air 06/11/18 17:07 99.1 85 22 149/74 (99) 96 Room Air 06/11/18 16:55 99.1 82 22 165/75 (105) 95 Room Air 06/11/18 16:30 99.0 85 20 137/66 (89) 93 Room Air 06/11/18 15:55 99.0 82 20 128/69 (88) 93 Room Air 06/11/18 15:28 98.7 83 20 119/60 (79) 92 Room Air 06/11/18 15:14 98.7 82 22 123/60 (81) 91 Room Air 06/11/18 15:04 98.5 87 23 123/61 (81) 93 Room Air 06/11/18 14:00 98.4 90 22 133/64 (87) 93 Room Air 06/11/18 13:00 98.5 86 20 135/62 (86) 94 Room Air 06/11/18 12:15 98.5 92 22 117/65 (82) 94 Room Air 06/11/18 12:00 98.2 92 22 115/74 (88) 94 Room Air 06/11/18 11:00 92 119/63 (81) 96 Intake & Output 06/12/18 05:59 Intake Total 4495 ml Output Total 950 ml Balance 3545 ml Laboratory Tests 06/11/18 10:52: Bedside Glucose (Misc Panel) 236H 06/11/18 12:28: Bedside Glucose (Misc Panel) 246H 06/11/18 13:49: Blood Urea Nitrogen 55H, Creatinine 2.53H, Sodium Level 137, Potassium Level 5.7H, Chloride Level 106, Carbon Dioxide Level 22, Calcium Level 7.6L, Anion Gap 9, Glomerular Filtration Rate 25.9L, Fasting Glucose 303H, Magnesium Level 1.7L 06/11/18 16:56: Bedside Glucose (Misc Panel) 227H 06/11/18 18:09: White Blood Count 18.8H, Red Blood Count 2.66L, Hemoglobin 7.8L, Hematocrit 23.9L, Mean Corpuscular Volume 89.8, Mean Corpuscular Hemoglobin 29.3, Mean Corpuscular Hemoglobin Concent 32.6, Red Cell Distribution Width 14.1, Platelet Count 183, Nucleated Red Blood Cells % (auto) 0.4H 06/11/18 21:09: Bedside Glucose (Misc Panel) 249H 06/11/18 21:50: Urine Random Osmolality 392L, Urine Random Creatinine 96.0, Urine Random Total Protein 32.5H, Urine Random Sodium 22, Urine Random Potassium 41.3, Urine Random Chloride 21 06/11/18 22:56: Hemoglobin 8.4L, Hematocrit 25.0L, Blood Urea Nitrogen 56H, Creatinine 2.55H, Sodium Level 136, Potassium Level 5.2H, Chloride Level 105, Carbon Dioxide Level 23, Calcium Level 7.5L, Anion Gap 8, Glomerular Filtration Rate 25.7L, Fasting Glucose 271H 06/12/18 04:07: Erythrocyte Sedimentation Rate 30 06/12/18 04:10: White Blood Count 18.3H, Red Blood Count 2.71L, Hemoglobin 8.1L, Hematocrit 24.4L, Mean Corpuscular Volume 90.0, Mean Corpuscular Hemoglobin 29.9, Mean Corpuscular Hemoglobin Concent 33.2, Red Cell Distribution Width 14.7H, Platelet Count 172, Nucleated Red Blood Cells % (auto) 0.7H, Blood Urea Nitrogen 57H, Creatinine 2.48H, Sodium Level 137, Potassium Level 5.0, Chloride Level 107, Carbon Dioxide Level 23, Calcium Level 7.7L, Anion Gap 7L, Glomerular Filtration Rate 26.5L, Fasting Glucose 267H, Magnesium Level 2.0, C-Reactive Protein, Quantitative 3.61H Microbiology 06/10/18 Urine Culture - Final, Complete Escherichia Coli Current Medications Medications (Trade) Dose Ordered Sig/Monica Route PRN Reason Start Time Stop Time Status Last Admin Dose Admin Acetaminophen (Tylenol Tab) 650 mg Q4H PRN PO PAIN / FEVER 06/10/18 22:45 06/11/18 17:17 Ascorbic Acid (Vitamin C) 250 mg BID PO 06/11/18 21:00 06/11/18 21:31 Carbamide Perox/ Anhydrous Glycerin (Debrox) 1 drop TuSa@2100 AU 06/11/18 21:00 06/15/18 20:59 06/11/18 21:30 Ferrous Sulfate (Ferrous Sulfate) 325 mg BID PO 06/11/18 21:00 06/11/18 21:31 Insulin Human Lispro (HumaLOG INSULIN) SEE PROTOCOL TABLE AC SC 06/11/18 07:30 06/11/18 17:05 Lactobacillus Acidophilus (Bacid) 1 ea BID PO 06/11/18 09:00 06/11/18 21:31 Meropenem 1 gm/IV Miscellaneous Supplies 50 ml @ 100 mls/hr Q12H IV 06/11/18 09:00 06/12/18 09:49 Non-Formulary Medication (Insulin Iv Rate Change Documentation ml/ Hr) ASDIRECTED XX 06/10/18 22:30 07/10/18 22:29 06/11/18 05:59 Omeprazole (PriLOSEC) 20 mg QAM PO 06/11/18 09:00 06/11/18 11:05 Paroxetine HCl (PAXil) 60 mg QHS PO 06/11/18 21:00 06/11/18 21:40 Polyethylene Glycol (Miralax) 1 pkt QAM PO 06/11/18 09:00 06/11/18 11:06 Pravastatin Sodium (Pravachol) 40 mg QHS PO 06/11/18 21:00 06/11/18 21:31 Quetiapine Fumarate (SEROquel XR) 200 mg DAILY@1600 PO 06/11/18 16:00 06/11/18 17:04 Senna/Docusate Sodium (Senokot S) 1 tab BID PO 06/11/18 21:00 06/11/18 21:31 Sodium Chloride 1,000 ml @ 100 mls/hr Q10H IV 06/11/18 07:45 06/12/18 05:33 Laboratory Tests 06/10/18 13:30 Red Blood Count 2.99 L, Mean Corpuscular Volume 90.3, Mean Corpuscular Hemoglobin 29.1, Mean Corpuscular Hemoglobin Concent 32.2, Red Cell Distribution Width 13.4, Neutrophils (%) (Auto) 86.5 H, Lymphocytes (%) (Auto) 5.2 L, Mo nocytes (%) (Auto) 5.8 H, Eosinophils (%) (Auto) 0.1, Basophils (%) (Auto) 0.3, Neutrophils # (Auto) 13.7 H, Lymphocytes # (Auto) 0.8 L, Monocytes # (Auto) 0.9 H, Eosinophils # (Auto) 0.0, Basophils # (Auto) 0.0 06/10/18 23:30 Calcium Level 8.3 L, Aspartate Amino Transf (AST/SGOT) 29, Alanine Aminotransferase (ALT/SGPT) 51, Alkaline Phosphatase 83, Total Bilirubin 0.2, Total Protein 5.3 L, Albumin 2.3 L 06/11/18 01:30 Calcium Level 8.1 L 06/11/18 03:35 Calcium Level 8.2 L 06/11/18 05:20 Calcium Level 8.0 L 06/11/18 08:10 Red Blood Count 1.90 L, Mean Corpuscular Volume 92.1, Mean Corpuscular Hemoglobin 29.5, Mean Corpuscular Hemoglobin Concent 32.0, Red Cell Distribution Width 13.9, Neutrophils (%) (Auto) 83.7 H, Lymphocytes (%) (Auto) 7.2 L, Monocytes (%) (Auto) 6.6 H, Eosinophils (%) (Auto) 0.0, Basophils (%) (Auto) 0.1, Neutrophils # (Auto) 16.8 H, Lymphocytes # (Auto) 1.5, Monocytes # (Auto) 1.3 H, Eosinophils # (Auto) 0.0, Basophils # (Auto) 0.0 06/11/18 09:05 06/11/18 13:49 Calcium Level 7.6 L 06/11/18 18:09 Red Blood Count 2.66 L, Mean Corpuscular Volume 89.8, Mean Corpuscular Hemoglobin 29.3, Mean Corpuscular Hemoglobin Concent 32.6, Red Cell Distribution Width 14.1 06/11/18 22:56 Calcium Level 7.5 L 06/12/18 04:10 Red Blood Count 2.71 L, Mean Corpuscular Volume 90.0, Mean Corpuscular Hemoglobin 29.9, Mean Corpuscular Hemoglobin Concent 33.2, Red Cell Distribution Width 14.7 H, Calcium Level 7.7 L Laboratory Tests Test 06/11/18 10:52 06/11/18 12:28 06/11/18 16:56 06/11/18 21:09 Range/Units Bedside Glucose (Misc Panel) 236 246 227 249 83-110 MG/DL Microbiology 06/10/18 Blood Culture - Preliminary, Resulted No growth after 24 hours . All specim... 06/10/18 Blood Culture - Preliminary, Resulted No growth after 24 hours . All specim... 06/11/18 MRSA Screen, Received Pending 06/10/18 Urine Culture - Final, Complete Escherichia Coli Assessment/Plan Assessment 83 YO male with right leg hematoma and DVT. Plan No signs of compartment syndrome, will continue with conservative management and no surgical intervention at this time. Will recheck noncontrast CT of RLE. Patient will undergo IVC filter placement secondary to DVT and inability to anticoagulate secondary to right leg hematoma. Tod Melissa MD Jun 12, 2018 10:21
[2018-06-12 10:48] LABS: FOLATE 10.7 NG/ML (>5.4)
[2018-06-12] MEDS ORDERED: ISOVUE-300 61% 50ML VIAL (Q9967) As Ordered ONE (11:17)
[2018-06-12] MEDS ORDERED: LIDOCAINE 2% MDV 20 ML VIAL As Ordered ONE (11:17)
--- NOTE | 2018-06-12 12:59 | REP ---
CT right femur without contrast: History: Right thigh hematoma. Comparison CT study June 11, 2018. Findings: There is a large medial thigh hematoma on the right again noted medial to the and displacing the hamstring musculature. In the aggregate, this measures 18 cm in anteroposterior dimension by 8.6 cm in medial to lateral span by 25.9 cm in craniocaudal span. This is essentially unchanged from yesterday's CT study. There is a diffuse subcutaneous edema. Subcutaneous edema is most pronounced laterally and distally and is seen across the knee joint into the proximal thigh. There is a small knee joint effusion. No other abnormal fluid collections are seen. Vascular calcification is noted. Impression: Very large medial thigh soft tissue hematoma on the right, essentially unchanged in overall size. No acute bony abnormality is seen. Electronically Signed by Antonio Brooks MD 06/12/2018 06:47 P
[2018-06-12] MEDS: OMEPRAZOLE 20 MG CAP PO SCH (14:00)
[2018-06-12] MEDS: ASCORBIC ACID 250 MG TAB PO SCH ×2 (14:00→21:26)
[2018-06-12] MEDS: LACTOBACILLUS ACIDOPHILUS CAP (BACID) PO SCH ×2 (14:00→21:26)
[2018-06-12] MEDS: FERROUS SULFATE 325MG TAB PO SCH ×2 (14:00→21:26)
[2018-06-12] MEDS: PATIROMER SORBITEX CALCIUM 8.4 GM POWDER PACKET (VELTASSA) PO SCH (14:01)
--- NOTE | 2018-06-12 15:22 | CR ---
DATE OF CONSULTATION: 06/11/2018 CONSULTATION REPORT FOR: Maryana Styles MD REASON FOR CONSULTATION: Acute renal failure superimposed on chronic kidney disease. HISTORY OF PRESENT ILLNESS: Mr. Recio is an 83-year-old gentleman who is a [facility] ([facility]) resident due to mental retardation and has known history of type 2 diabetes, hypertension, chronic kidney disease, recurrent urinary tract infection (UTI) recently treated with Bactrim and Keflex, history of bladder cancer, status post ileal conduit and radiation. The patient is admitted to [facility] with uncontrolled diabetes and diabetic ketoacidosis. He has developed worsening acute renal failure, due to which a nephrology consultation was requested. He was diagnosed with deep vein thrombosis (DVT) in right lower extremity a couple of weeks ago and has been on Lovenox due to his history of bladder cancer. He has significant swelling and pain in his right thigh. PAST MEDICAL AND SURGICAL HISTORY: Significant for: 1. Longstanding diabetes. 2. Hypertension. 3. Chronic kidney disease. 4. Diastolic congestive heart failure. 5. Recurrent urinary tract infections (UTIs). 6. History of bladder and prostate cancer, status post radical cystectomy, prostatectomy and ileal conduit. 7. History of coronary artery disease, status post myocardial infarction (SD) in the past. 8. Mental retardation. PAST SURGICAL HISTORY: Significant for robotic-assisted radical cystectomy, prostatectomy with bilateral extensive pelvic lymph node dissection and ileal conduit urinary diversion. PERSONAL AND SOCIAL HISTORY: The patient is a [facility] ([facility]) resident and has no history of tobacco, alcohol or drug use. FAMILY HISTORY: Noncontributory. REVIEW OF SYSTEMS: Very limited review of systems as the patient is not able to provide much information. He seems quite agitated at the time of my visit and was difficult to cooperate. He has [facility] ([facility]) staff member on the bedside who provided information. Apparently, he was diagnosed with deep vein thrombosis (DVT) of the right lower extremity and has been anticoagulated with Lovenox. He was admitted with uncontrolled diabetes and treated for diabetic ketoacidosis (DKA) in the intensive care unit. His insulin drip has been just recently stopped. There are no fever or chills. The patient is thirsty and asking for water constantly during our interview. There is no vomiting or diarrhea reported. PHYSICAL EXAMINATION: Elderly gentleman who is somewhat restless and poorly cooperative for a physical examination. His temperature is 98.2 degrees Fahrenheit, heart rate 92 per minute and respiratory rate 22 per minute. Blood pressure 115/74 mmHg and oxygen saturation 94% on room air. He is pale and there are no oral thrush or ulcers. His dentition is in poor repair. Neck is supple and jugular venous distention (JVD) is not abnormally elevated. Pupils are equal and reactive to light and sclera is anicteric. Heart sounds are regular. Lungs sound clear to auscultation. Abdomen is soft and nontender and without a palpable organomegaly. Bowel sounds are present. Extremities have no cyanosis or clubbing. Right thigh has extensive swelling and firm all the way down to the knee. There is edema on the right lower extremity on the leg and foot. There is no edema on the left lower extremity. Neurologically, he is awake and able to move his extremities. He is poorly cooperative. LABORATORY DATA: His initial CBC showed a WBC count of 15.8, hemoglobin 8.7 and hematocrit 27.0. A repeat one showed WBC count 20.1 this morning, hemoglobin 5.6 and hematocrit 17.5. BUN was 51 and creatinine 2.53 on admission. Glucose 528, sodium 133 and potassium 5.3. CO2 was 23 and A1c 11.1. Lactic acid level was 2.8 initially and then a repeat lactic acid level was 5.1. His laboratories from this morning showed a sodium of 140, potassium 5.2, CO2 23, BUN 57 and creatinine 2.49. Glucose down to 200 and calcium 8.0. Urinalysis showed 3+ glucose, 1+ protein, 17 WBCs and 15 RBCs. He had a renal ultrasound done this morning which showed right kidney 9.2 and left kidney 9.7 cm with a small cyst in the right kidney. Mild hydronephrosis was noted. He had a CT scan of abdomen and pelvis done which showed large hematoma involving the right adductor muscles of the right lower extremity with extensive surrounding subcutaneous infiltration and bibasilar atelectasis in the lungs. Chest x-ray on admission was without any acute infiltrate or effusion. PROBLEMS: 1. Acute renal failure superimposed on chronic kidney disease, probably prerenal as the patient is treated for diabetic ketoacidosis. He is now receiving IV normal saline at 100 mL per hour and the patient is also thirsty. I would strongly recommend to allow liberal oral fluid intake due to dehydration and thirst. He has no edema on the left leg and right lower extremity edema is related to extensive hematoma and possible deep vein thrombosis (DVT). I am not certain how the diagnosis of DVT was made. The patient is anticoagulated and has an extensive hematoma in his right thigh. 2. Anemia. Acute blood loss anemia and the patient should be transfused to get his hemoglobin up to about 8.0. 3. Anticoagulation and DVT. It seems to be a complicated situation. The patient was diagnosed with DVT a couple of weeks ago and now he has a significant hematoma in his right thigh. I am not sure if his hematoma is the result of anticoagulation or trauma. In any event, at this point, he should be transfused and a hematology and surgical consultation is warranted. Thank you for involving me in the care of Mr. Recio. I will follow him along with you.
--- NOTE | 2018-06-12 15:47 | IPNPDOC ---
Text Note Date of Service The patient was seen on 06/12/18. NOTE He is a very poor historian. Denies any chest pain, pressure or discomfort. right thigh pain reported. PHYSICAL EXAMINATION: GENERAL: Patient mildly confused in no acute distress. HEENT: Normocephalic, atraumatic. CARDIAC: Regular S1, S2. PULMONARY: Bilaterally clear. ABDOMEN: Soft, non-tender. Positive bowel sounds. EXTREMITIES: Right hip with large hematoma. DP/PT pulses intact bilateral. Right lower extremity edematous. ASSESSMENT AND PLAN: This is an 83 to male patient with underlying medical history of mild mental retardation from [facility]. Hypertension, diabetes type 2 poorly controlled, chronic kidney disease stage 4, diastolic congestive heart failure, recurrent urinary tract infection, history of bladder and prostate cancer status post radical cystectomy and prostatectomy, with an ileal conduit, coronary artery disease with myocardial infarction (IA) and recently diagnosed with deep vein thrombosis presented with weakness and episode of near syncope. Found to be in early DKA. 1. Generalized weakness and near syncopal episode. Possibly due to underlying infection versus acute blood loss anemia. Chest x-ray appreciated. Given intense seriousness of patient's condition, patient antibiotics has been escalated to meropenem. Will continue to monitor. 2. persistent leukocytosis, UTI, vs acute stress, on meropenem, f/u cultures, CRP. consider ID consult if not improved. 3. Acute blood loss anemia secondary to right thigh hematoma, likely due to anticoagulation. X-ray negative for fracture. Consulted hematology/oncology. Patient's Lovenox on hold. IVC filter given history of deep vein thrombosis recent. Dr. Melissa has been on consult. Will monitor for compartment syndrome with peripheral pulses. Further recommendation as per vascular surgery Dr. Melissa. X-rays appreciated and transfuse 4 units PRBCs. Follow up hemoglobin and hematocrit. 4. DMII with Early DKA. Patient bridges to basal bolus insulin. Beta hydroxy is negative. Continue to follow finger stick. A1c appreciated. Patient will likely need insulin as outpatient. 5. Chronic kidney disease stage 4 with hyperkalemia. Consulted nephrology. IV fluids. Veltassa has been ordered. f/u bmp 6. Coronary artery disease. Continue statin. 7. Depression. Continue current medication. 8. Iron deficiency anemia with acute blood loss anemia. Iron supplementation has been added with vitamin C as well as Senna. 9. Deep vein thrombosis. Given acute blood loss anemia hematology/oncology has been consulted. Patient's Lovenox is on hold. Will get IVC filter. 10. Gastroesophageal reflux disease. Continue PPI. 11. Constipation. Continue current medication. 12. Deep vein thrombosis prophylaxis. Thromboembolic deterrent stockings (TEDS) and sequential. Will get IVC filter. Avoid anticoagulation given acute blood loss anemia secondary to right thigh hematoma. DISPOSITION: Pending clinical improvement, further recommendation as per nephrology and vascular surgery. VS,Fishbone, I+O VS, Fishbone, I+O Laboratory Tests 06/11/18 18:09 Red Blood Count 2.66 L, Mean Corpuscular Volume 89.8, Mean Corpuscular Hemoglobin 29.3, Mean Corpuscular Hemoglobin Concent 32.6, Red Cell Distribution Width 14.1 06/11/18 22:56 Calcium Level 7.5 L 06/12/18 04:10 Red Blood Count 2.71 L, Mean Corpuscular Volume 90.0, Mean Corpuscular Hemoglobin 29.9, Mean Corpuscular Hemoglobin Concent 33.2, Red Cell Distribution Width 14.7 H, Calcium Level 7.7 L Vital Signs Date Time Temp Pulse Resp B/P (MAP) Pulse Ox O2 Delivery O2 Flow Rate FiO2 06/12/18 14:15 98.3 93 20 139/69 (92) 97 Room Air 06/11/18 04:00 2.0 I&O- Last 24 Hours up to 6 AM 06/12/18 06:00 Intake Total 4993 ml Output Total 950 ml Balance 4043 ml ESTEBAN FALL MD Jun 12, 2018 15:47
--- NOTE | 2018-06-12 16:40 | IPN ---
DATE: 06/12/2018 Mr. Recio is seen this morning on his bedside in intensive care unit. He is in pain in his right thigh. Nursing staff reports that he is scheduled for inferior vena cava (IVC) filter placement and possible evacuation of hematoma in his right thigh. The patient has no dyspnea or chest pain at present. Yesterday he had a CT scan of abdomen and pelvis followed by CT scan of right lower extremity, which showed large hematoma in his right thigh. His anticoagulation has been stopped since yesterday. He has history of deep vein thrombosis (DVT) prior to this. PHYSICAL EXAMINATION: Temperature 99.1 degrees Fahrenheit, heart rate 95 per minute, respiratory rate 20 per minute, blood pressure 124/69 mm of mercury, and oxygen saturation 95% on room air. Head is atraumatic. He is pale looking but not in any acute distress. Heart sounds are somewhat tachycardiac. Lungs have no wheezing or rales at present. Abdomen is soft and nontender, and urostomy is draining clear urine. Extremities have no cyanosis or clubbing on his upper extremities. He has a large hematoma on right thigh starting from inguinal area down to just above the knee. Lower leg is quite swollen, but the left leg has no edema. Today's labs show WBC count 18.3, hemoglobin 8.1, hematocrit 24.4, platelets 172. Sodium 137, potassium 5.0, CO2 of 23, BUN 57, and creatinine 2.48. Glucose 267 and calcium 7.7. PROBLEMS: 1. Acute renal failure superimposed on chronic kidney, most likely prerenal azotemia due to loss of significant amount of blood and being nothing by mouth. He is currently receiving intravenous (IV) normal saline at 100 mL per hour, and kidney function is slowly improving. No other intervention is indicated at this point. His renal ultrasound was negative for hydronephrosis, and he is not on any nephrotoxic medications. 2. Acute blood loss anemia, improved partially following transfusions. There is a large hematoma in his right thigh, which is the cause of his anemia. 3. Hyperkalemia. Potassium level has improved to normal range and is likely to improve as his kidney function improves with IV fluid hydration. No other intervention is indicated. 3. Right thigh hematoma and DVT. The patient is scheduled for IVC filter placement later today and possible evacuation of right thigh hematoma with vascular surgery.
[2018-06-12] MEDS: QUEtiapine FUMARATE **XR** 200MG TABLET PO SCH (16:48)
[2018-06-12 18:15] LABS: HEMATOCRIT 29.1 % (42.0-52.0); HEMOGLOBIN 9.5 g/dl (13.5-17.5)
[2018-06-12] MEDS: PRAVASTATIN 20 MG TAB PO SCH (21:25)
[2018-06-12] MEDS: PARoxetine 20 MG TAB PO SCH (21:26)
[2018-06-13] VITALS (20 sets, daily range): BP systolic 103–152; BP diastolic 56–79
[2018-06-13 04:22] LABS: HEMATOCRIT 25.4 % (42.0-52.0); HEMOGLOBIN 8.3 g/dl (13.5-17.5); MEAN CORPUSCULAR HEMOGLOBIN 29.7 pg (27.0-33.0); MEAN CORPUSCULAR HGB CONC 32.7 g/dl (32.0-36.5); PLATELET COUNT, AUTOMATED 146 10^3/uL (150-450); RED BLOOD COUNT 2.79 10^6/uL (4.30-6.10); WHITE BLOOD COUNT 15.3 10^3/uL (4.0-10.0)
[2018-06-13 04:40] LABS: C REACTIVE PROTEIN QUANTITATIV 5.56 MG/DL (0.00-0.30); CALCIUM LEVEL 7.5 MG/DL (8.8-10.2); CREATININE FOR GFR 2.21 MG/DL (0.70-1.30); GLOMERULAR FILTRATION RATE 30.3 (>35); MAGNESIUM LEVEL 2.1 MG/DL (1.8-2.4); POTASSIUM SERUM 4.7 MEQ/L (3.5-5.1)
[2018-06-13] MEDS: ASCORBIC ACID 250 MG TAB PO SCH ×2 (08:27→21:00)
[2018-06-13] MEDS: LACTOBACILLUS ACIDOPHILUS CAP (BACID) PO SCH ×2 (08:28→21:00)
[2018-06-13] MEDS: MIRALAX *UNIT DOSE* 17GM PACKET PO SCH (08:28)
[2018-06-13] MEDS: OMEPRAZOLE 20 MG CAP PO SCH (08:28)
[2018-06-13] MEDS: FERROUS SULFATE 325MG TAB PO SCH ×2 (08:28→21:00)
[2018-06-13] MEDS: SENOKOT S TAB PO SCH ×2 (08:28→21:00)
[2018-06-13] MEDS: LEVEMIR (INSULIN DETEMIR) 1 UNITS/0.01ML SC SCH (08:29)
[2018-06-13] MEDS: HumaLOG INSULIN (NovoLOG) PER UNIT SC SCH ×4 (08:29→21:00)
[2018-06-13] MEDS: cefTRIAXone SOD 1 GM in D5W MINI-BAG PLUS 50 ML IV SCH (08:29)
[2018-06-13] MEDS: PATIROMER SORBITEX CALCIUM 8.4 GM POWDER PACKET (VELTASSA) PO SCH (12:00)
[2018-06-13 14:53] LABS: HEMATOCRIT 25.6 % (42.0-52.0); HEMOGLOBIN 8.6 g/dl (13.5-17.5)
[2018-06-13] MEDS: QUEtiapine FUMARATE **XR** 200MG TABLET PO SCH (18:17)
--- NOTE | 2018-06-13 20:06 | IPNPDOC ---
Text Note Date of Service The patient was seen on 06/13/18. NOTE He is a very poor historian. Denies any chest pain, pressure or discomfort. right thigh pain reported. PHYSICAL EXAMINATION: GENERAL: Patient mildly confused in no acute distress. HEENT: Normocephalic, atraumatic. CARDIAC: Regular S1, S2. PULMONARY: Bilaterally clear. ABDOMEN: Soft, non-tender. Positive bowel sounds. EXTREMITIES: Right hip with large hematoma. DP/PT pulses intact bilateral. 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 Hypertension, diabetes type 2 poorly controlled, chronic kidney disease stage 4, diastolic congestive heart failure, recurrent urinary tract infection, history of bladder and prostate cancer status post radical cystectomy and prostatectomy, with an ileal conduit, coronary artery disease with myocardial infarction ([place]) and recently diagnosed with deep vein thrombosis presented with weakness and episode of near syncope. Found to be in early DKA. 1. Generalized weakness and near syncopal episode. Possibly due to underlying infection versus acute blood loss anemia. Chest x-ray appreciated. 2. persistent leukocytosis, ecoli UTI, vs acute stress, rocephin , improved 3. Acute blood loss anemia secondary to right thigh hematoma, likely due to anticoagulation. X-ray negative for fracture. Consulted hematology/oncology. Patient's Lovenox on hold. IVC filter given history of deep vein thrombosis recent. Dr. Melissa has been on consult. Will monitor for compartment syndrome with peripheral pulses. Further recommendation as per vascular surgery Dr. Melissa. X-rays appreciated and transfuse 4 units PRBCs. Follow up hemoglobin and hematocrit. 4. DMII with Early DKA. Patient bridges to basal bolus insulin. Beta hydroxy is negative. Continue to follow finger stick. A1c appreciated. Patient will likely need insulin as outpatient. 5. Chronic kidney disease stage 4 with hyperkalemia. Consulted nephrology. impr priscila if PRBC and IVF. likely pre-renal. f/u lab 6. Coronary artery disease. Continue statin. 7. Depression. Continue current medication. 8. Iron deficiency anemia with acute blood loss anemia. Iron supplementation has been added with vitamin C as well as Senna. 9. Deep vein thrombosis. Given acute blood loss anemia hematology/oncology has been consulted. Patient's Lovenox is on hold. IVC filter. 10. Gastroesophageal reflux disease. Continue PPI. 11. Constipation. Continue current medication. 12. Deep vein thrombosis prophylaxis. Thromboembolic deterrent stockings (TEDS) and sequential. IVC filter. Avoid anticoagulation given acute blood loss anemia secondary to right thigh hematoma. DISPOSITION: Pending clinical improvement, further recommendation as per nephrology and vascular surgery. VS,Fishbone, I+O VS, Fishbone, I+O Laboratory Tests 06/13/18 04:04 Red Blood Count 2.79 L, Mean Corpuscular Volume 91.0, Mean Corpuscular Hemoglobin 29.7, Mean Corpuscular Hemoglobin Concent 32.7, Red Cell Distribution Width 14.6 H, Calcium Level 7.5 L 06/13/18 14:34 Vital Signs Date Time Temp Pulse Resp B/P (MAP) Pulse Ox O2 Delivery O2 Flow Rate FiO2 06/13/18 18:01 78 134/71 (92) 06/13/18 16:00 99.0 20 93 Room Air 06/11/18 04:00 2.0 I&O- Last 24 Hours up to 6 AM 06/13/18 06:00 Intake Total 4310 ml Output Total 1875 ml Balance 2435 ml ESTEBAN FALL MD Jun 13, 2018 20:06
[2018-06-13] MEDS: PRAVASTATIN 20 MG TAB PO SCH (21:00)
[2018-06-13] MEDS: PARoxetine 20 MG TAB PO SCH (21:00)
[2018-06-14] VITALS (7 sets, daily range): BP systolic 109–132; BP diastolic 53–65
[2018-06-14 04:40] LABS: HEMATOCRIT 24.4 % (42.0-52.0); HEMOGLOBIN 8.2 g/dl (13.5-17.5); MEAN CORPUSCULAR HEMOGLOBIN 30.8 pg (27.0-33.0); MEAN CORPUSCULAR HGB CONC 33.6 g/dl (32.0-36.5); MEAN CORPUSCULAR VOLUME 91.7 fl (80.0-96.0); PLATELET COUNT, AUTOMATED 133 10^3/uL (150-450); RED BLOOD COUNT 2.66 10^6/uL (4.30-6.10); WHITE BLOOD COUNT 11.1 10^3/uL (4.0-10.0)
[2018-06-14 05:14] LABS: C REACTIVE PROTEIN QUANTITATIV 5.86 MG/DL (0.00-0.30); CALCIUM LEVEL 7.8 MG/DL (8.8-10.2); CREATININE FOR GFR 1.97 MG/DL (0.70-1.30); GLOMERULAR FILTRATION RATE 34.6 (>35); POTASSIUM SERUM 4.3 MEQ/L (3.5-5.1)
[2018-06-14] MEDS: OMEPRAZOLE 20 MG CAP PO SCH (09:50)
[2018-06-14] MEDS: LACTOBACILLUS ACIDOPHILUS CAP (BACID) PO SCH ×2 (09:50→21:26)
[2018-06-14] MEDS: ASCORBIC ACID 250 MG TAB PO SCH ×2 (09:50→21:25)
[2018-06-14] MEDS: FERROUS SULFATE 325MG TAB PO SCH ×2 (09:50→21:25)
[2018-06-14] MEDS: LEVEMIR (INSULIN DETEMIR) 1 UNITS/0.01ML SC SCH (09:51)
[2018-06-14] MEDS: cefTRIAXone SOD 1 GM in D5W MINI-BAG PLUS 50 ML IV SCH (09:51)
[2018-06-14] MEDS: SENOKOT S TAB PO SCH ×2 (09:51→21:25)
[2018-06-14] MEDS: MIRALAX *UNIT DOSE* 17GM PACKET PO SCH (09:51)
[2018-06-14] MEDS: HumaLOG INSULIN (NovoLOG) PER UNIT SC SCH ×4 (09:52→21:00)
[2018-06-14] MEDS: PATIROMER SORBITEX CALCIUM 8.4 GM POWDER PACKET (VELTASSA) PO SCH (12:18)
[2018-06-14 14:15] LABS: HEMATOCRIT 25.2 % (42.0-52.0); HEMOGLOBIN 8.4 g/dl (13.5-17.5)
[2018-06-14] MEDS: QUEtiapine FUMARATE **XR** 200MG TABLET PO SCH (17:40)
--- NOTE | 2018-06-14 19:50 | IPNPDOC ---
Text Note Date of Service The patient was seen on 06/14/18. NOTE He is a very poor historian. Denies any chest pain, pressure or discomfort. right thigh pain reported. PHYSICAL EXAMINATION: GENERAL: Patient mildly confused in no acute distress. HEENT: Normocephalic, atraumatic. CARDIAC: Regular S1, S2. PULMONARY: Bilaterally clear. ABDOMEN: Soft, non-tender. Positive bowel sounds. EXTREMITIES: Right hip with large hematoma. DP/PT pulses intact bilateral. Right lower extremity edematous, improved ASSESSMENT AND PLAN: This is an 83 to male patient with underlying medical history of mild mental retardation from [facility]. Hypertension, diabetes type 2 poorly controlled, chronic kidney disease stage 4, diastolic congestive heart failure, recurrent urinary tract infection, history of bladder and prostate cancer status post radical cystectomy and prostatectomy, with an ileal conduit, coronary artery disease with myocardial infarction ([place]) and recently diagnosed with deep vein thrombosis presented with weakness and episode of near syncope. Found to be in early DKA. 1. Generalized weakness and near syncopal episode. Possibly due to underlying infection versus acute blood loss anemia. Chest x-ray appreciated. 2. persistent leukocytosis, ecoli UTI, vs acute stress, rocephin , improved 3. Acute blood loss anemia secondary to right thigh hematoma, likely due to anticoagulation. X-ray negative for fracture. Consulted hematology/oncology. Patient's Lovenox on hold. IVC filter given history of deep vein thrombosis recent. Dr. Melissa has been on consult. Will monitor for compartment syndrome with peripheral pulses. Further recommendation as per vascular surgery Dr. Melissa. X-rays appreciated and transfuse 4 units PRBCs. Follow up hemoglobin and hematocrit. improving 4. DMII with Early DKA. Patient bridges to basal bolus insulin. Beta hydroxy is negative. Continue to follow finger stick. A1c appreciated. Patient will likely need insulin as outpatient. 5. Chronic kidney disease stage 4 with hyperkalemia. Consulted nephrology. improved if PRBC and IVF. likely pre-renal. f/u lab 6. Coronary artery disease. Continue statin. 7. Depression. Continue current medication. 8. Iron deficiency anemia with acute blood loss anemia. Iron supplementation has been added with vitamin C as well as Senna. 9. Deep vein thrombosis. Given acute blood loss anemia hematology/oncology has been consulted. Patient's Lovenox is on hold. IVC filter. 10. Gastroesophageal reflux disease. Continue PPI. 11. Constipation. Continue current medication. 12. Deep vein thrombosis prophylaxis. Thromboembolic deterrent stockings (TEDS) and sequential. IVC filter. Avoid anticoagulation given acute blood loss anemia secondary to right thigh hematoma. DISPOSITION: Pending clinical improvement, social work and PT VS,Stanislav, I+O VS, Stanislav, I+O Laboratory Tests 06/14/18 04:10 Red Blood Count 2.66 L, Mean Corpuscular Volume 91.7, Mean Corpuscular Hemoglobin 30.8, Mean Corpuscular Hemoglobin Concent 33.6, Red Cell Distribution Width 15.7 H, Calcium Level 7.8 L 06/14/18 14:02 Vital Signs Date Time Temp Pulse Resp B/P (MAP) Pulse Ox O2 Delivery O2 Flow Rate FiO2 06/14/18 16:00 97.4 79 18 132/64 (86) 95 Room Air 06/11/18 04:00 2.0 I&O- Last 24 Hours up to 6 AM 06/14/18 06:00 Intake Total 960 ml Output Total 1525 ml Balance -565 ml ESTEBAN FALL MD Jun 14, 2018 19:50
[2018-06-14] MEDS: PRAVASTATIN 20 MG TAB PO SCH (21:25)
[2018-06-14] MEDS: PARoxetine 20 MG TAB PO SCH (21:26)
[2018-06-15] VITALS: BP 114/63
[2018-06-15 04:00] VITALS: BP 120/66
[2018-06-15 05:49] LABS: HEMATOCRIT 23.4 % (42.0-52.0); HEMOGLOBIN 7.6 g/dl (13.5-17.5); MEAN CORPUSCULAR HEMOGLOBIN 30.6 pg (27.0-33.0); MEAN CORPUSCULAR HGB CONC 32.5 g/dl (32.0-36.5); MEAN CORPUSCULAR VOLUME 94.4 fl (80.0-96.0); PLATELET COUNT, AUTOMATED 144 10^3/uL (150-450); RED BLOOD COUNT 2.48 10^6/uL (4.30-6.10); WHITE BLOOD COUNT 10.1 10^3/uL (4.0-10.0)
[2018-06-15 06:01] LABS: C REACTIVE PROTEIN QUANTITATIV 4.4 MG/DL (0.00-0.30); CALCIUM LEVEL 7.8 MG/DL (8.8-10.2); CREATININE FOR GFR 1.83 MG/DL (0.70-1.30); GLOMERULAR FILTRATION RATE 37.6 (>35); MAGNESIUM LEVEL 1.8 MG/DL (1.8-2.4); POTASSIUM SERUM 4.6 MEQ/L (3.5-5.1)
[2018-06-15] MEDS: ACETAMINOPHEN TAB 650MG DOSE (2X325MG) PO PRN (07:30)
[2018-06-15] MEDS: HumaLOG INSULIN (NovoLOG) PER UNIT SC SCH ×4 (07:31→21:00)
[2018-06-15] MEDS: cefTRIAXone SOD 1 GM in D5W MINI-BAG PLUS 50 ML IV SCH (07:31)
[2018-06-15 07:43] VITALS: BP 137/73
[2018-06-15] MEDS: LEVEMIR (INSULIN DETEMIR) 1 UNITS/0.01ML SC SCH (09:32)
[2018-06-15] MEDS: SENOKOT S TAB PO SCH ×2 (09:33→21:10)
[2018-06-15] MEDS: MIRALAX *UNIT DOSE* 17GM PACKET PO SCH (09:33)
[2018-06-15] MEDS: ASCORBIC ACID 250 MG TAB PO SCH ×2 (09:33→21:10)
[2018-06-15] MEDS: FERROUS SULFATE 325MG TAB PO SCH ×2 (09:33→21:10)
[2018-06-15] MEDS: OMEPRAZOLE 20 MG CAP PO SCH (09:33)
[2018-06-15] MEDS: LACTOBACILLUS ACIDOPHILUS CAP (BACID) PO SCH ×2 (09:33→21:10)
[2018-06-15 12:00] VITALS: BP 147/74
[2018-06-15] MEDS: PATIROMER SORBITEX CALCIUM 8.4 GM POWDER PACKET (VELTASSA) PO SCH (12:20)
[2018-06-15 14:19] LABS: HEMATOCRIT 27.9 % (42.0-52.0); HEMOGLOBIN 9.2 g/dl (13.5-17.5)
[2018-06-15 15:51] VITALS: BP 111/64
[2018-06-15] MEDS: QUEtiapine FUMARATE **XR** 200MG TABLET PO SCH (16:29)
--- NOTE | 2018-06-15 16:47 | IPNPDOC ---
Text Note Date of Service The patient was seen on 06/15/18. NOTE He is a very poor historian. Denies any chest pain, pressure or discomfort. right thigh pain reported. PHYSICAL EXAMINATION: GENERAL: Patient mildly confused in no acute distress. HEENT: Normocephalic, atraumatic. CARDIAC: Regular S1, S2. PULMONARY: Bilaterally clear. ABDOMEN: Soft, non-tender. Positive bowel sounds. EXTREMITIES: Right hip with large hematoma. DP/PT pulses intact bilateral. Right lower extremity edematous, improved ASSESSMENT AND PLAN: This is an 83 to male patient with underlying medical history of mild mental retardation from [facility]. Hypertension, diabetes type 2 poorly controlled, chronic kidney disease stage 4, diastolic congestive heart failure, recurrent urinary tract infection, history of bladder and prostate cancer status post radical cystectomy and prostatectomy, with an ileal conduit, coronary artery disease with myocardial infarction ([place]) and recently diagnosed with deep vein thrombosis presented with weakness and episode of near syncope. Found to be in early DKA. 1. Generalized weakness and near syncopal episode. Possibly due to underlying infection versus acute blood loss anemia. Chest x-ray appreciated. 2. persistent leukocytosis, ecoli UTI, vs acute stress, rocephin , improved 3. Acute blood loss anemia secondary to right thigh hematoma, likely due to anticoagulation. X-ray negative for fracture. Consulted hematology/oncology. Patient's Lovenox on hold. IVC filter given history of deep vein thrombosis recent. Dr. Melissa has been on consult. Will monitor for compartment syndrome with peripheral pulses. Further recommendation as per vascular surgery Dr. Melissa. X-rays appreciated and transfuse 5 units PRBCs. Follow up hemoglobin and hematocrit. improving 4. DMII with Early DKA. Patient bridges to basal bolus insulin. Beta hydroxy is negative. Continue to follow finger stick. A1c appreciated. Patient will likely need insulin as outpatient. 5. Chronic kidney disease stage 4 with hyperkalemia. Consulted nephrology. improved if PRBC and IVF. likely pre-renal. f/u lab 6. Coronary artery disease. Continue statin. 7. Depression. Continue current medication. 8. Iron deficiency anemia with acute blood loss anemia. Iron supplementation has been added with vitamin C as well as Senna. 9. Deep vein thrombosis. Given acute blood loss anemia hematology/oncology has been consulted. Patient's Lovenox is on hold. IVC filter. 10. Gastroesophageal reflux disease. Continue PPI. 11. Constipation. Continue current medication. 12. Deep vein thrombosis prophylaxis. Thromboembolic deterrent stockings (TEDS) and sequential. IVC filter. Avoid anticoagulation given acute blood loss anemia secondary to right thigh hematoma. DISPOSITION: Pending clinical improvement, JRC, social work and PT VS,Stanislav, I+O VS, Stanislav, I+O Laboratory Tests 06/15/18 04:37 Red Blood Count 2.48 L, Mean Corpuscular Volume 94.4, Mean Corpuscular Hemoglobin 30.6, Mean Corpuscular Hemoglobin Concent 32.5, Red Cell Distribution Width 17.2 H, Calcium Level 7.8 L 06/15/18 14:03 Vital Signs Date Time Temp Pulse Resp B/P (MAP) Pulse Ox O2 Delivery O2 Flow Rate FiO2 06/15/18 15:51 97.9 73 18 111/64 (80) 94 Room Air 06/11/18 04:00 2.0 I&O- Last 24 Hours up to 6 AM 06/15/18 06:00 Intake Total 1510 ml Output Total 2475 ml Balance -965 ml ESTEBAN FALL MD Jun 15, 2018 16:47
[2018-06-15 21:08] VITALS: BP 133/65
[2018-06-15] MEDS: PARoxetine 20 MG TAB PO SCH (21:10)
[2018-06-15] MEDS: PRAVASTATIN 20 MG TAB PO SCH (21:10)
[2018-06-16] VITALS: BP 107/56
[2018-06-16 04:00] VITALS: BP 127/63
[2018-06-16 05:52] LABS: HEMOGLOBIN 8.9 g/dl (13.5-17.5); MEAN CORPUSCULAR HEMOGLOBIN 30.5 pg (27.0-33.0); MEAN CORPUSCULAR VOLUME 92.5 fl (80.0-96.0); PLATELET COUNT, AUTOMATED 161 10^3/uL (150-450); RED BLOOD COUNT 2.92 10^6/uL (4.30-6.10); WHITE BLOOD COUNT 9.6 10^3/uL (4.0-10.0)
[2018-06-16 06:08] LABS: C REACTIVE PROTEIN QUANTITATIV 3.58 MG/DL (0.00-0.30); CALCIUM LEVEL 7.6 MG/DL (8.8-10.2); CREATININE FOR GFR 1.83 MG/DL (0.70-1.30); GLOMERULAR FILTRATION RATE 37.6 (>35); MAGNESIUM LEVEL 2.1 MG/DL (1.8-2.4); POTASSIUM SERUM 4.5 MEQ/L (3.5-5.1)
[2018-06-16] MEDS: cefTRIAXone SOD 1 GM in D5W MINI-BAG PLUS 50 ML IV SCH (07:33)
[2018-06-16] MEDS: HumaLOG INSULIN (NovoLOG) PER UNIT SC SCH ×4 (07:33→21:00)
[2018-06-16 08:00] VITALS: BP 142/79
[2018-06-16] MEDS: MIRALAX *UNIT DOSE* 17GM PACKET PO SCH (09:00)
[2018-06-16] MEDS: FERROUS SULFATE 325MG TAB PO SCH ×2 (09:15→21:44)
[2018-06-16] MEDS: OMEPRAZOLE 20 MG CAP PO SCH (09:15)
[2018-06-16] MEDS: LEVEMIR (INSULIN DETEMIR) 1 UNITS/0.01ML SC SCH (09:15)
[2018-06-16] MEDS: ASCORBIC ACID 250 MG TAB PO SCH (09:15)
[2018-06-16] MEDS: SENOKOT S TAB PO SCH ×2 (09:15→21:44)
[2018-06-16] MEDS: LACTOBACILLUS ACIDOPHILUS CAP (BACID) PO SCH ×2 (09:16→21:43)
[2018-06-16 12:00] VITALS: BP 135/72
[2018-06-16] MEDS: PATIROMER SORBITEX CALCIUM 8.4 GM POWDER PACKET (VELTASSA) PO SCH (12:05)
[2018-06-16] MEDS: QUEtiapine FUMARATE **XR** 200MG TABLET PO SCH (15:00)
[2018-06-16 15:58] VITALS: BP 132/63
--- NOTE | 2018-06-16 19:58 | IPNPDOC ---
Text Note Date of Service The patient was seen on 06/16/18. NOTE He is a very poor historian. Denies any chest pain, pressure or discomfort. right thigh pain improved. PHYSICAL EXAMINATION: GENERAL: Patient mildly confused in no acute distress. HEENT: Normocephalic, atraumatic. CARDIAC: Regular S1, S2. PULMONARY: Bilaterally clear. ABDOMEN: Soft, non-tender. Positive bowel sounds. EXTREMITIES: Right hip with large hematoma. DP/PT pulses intact bilateral. Right lower extremity edematous, improved ASSESSMENT AND PLAN: This is an 83 to male patient with underlying medical history of mild mental retardation from [facility]. Hypertension, diabetes type 2 poorly controlled, chronic kidney disease stage 4, diastolic congestive heart failure, recurrent urinary tract infection, history of bladder and prostate cancer status post radical cystectomy and prostatectomy, with an ileal conduit, coronary artery disease with myocardial infarction ([place]) and recently diagnosed with deep vein thrombosis presented with weakness and episode of near syncope. Found to be in early DKA. 1. Generalized weakness and near syncopal episode. Possibly due to underlying infection versus acute blood loss anemia. Chest x-ray appreciated. 2. persistent leukocytosis, ecoli UTI, vs acute stress, rocephin , improved 3. Acute blood loss anemia secondary to right thigh hematoma, likely due to anticoagulation. X-ray negative for fracture. Consulted hematology/oncology. Patient's Lovenox on stopped to be restarted by vascular as outpatient. IVC filter given history of deep vein thrombosis recent. Dr. Melissa has been on consult. Will monitor for compartment syndrome with peripheral pulses. Further recommendation as per vascular surgery Dr. Melissa. X-rays appreciated and transfuse 5 units PRBCs. Follow up hemoglobin and hematocrit. improving 4. DMII with Early DKA. Patient bridges to basal bolus insulin. Beta hydroxy is negative. Continue to follow finger stick. A1c appreciated. Patient will likely need insulin as outpatient. 5. Chronic kidney disease stage 4 with hyperkalemia. Consulted nephrology. improved if PRBC and IVF. likely pre-renal. f/u lab, resolved 6. Coronary artery disease. Continue statin. 7. Depression. Continue current medication. 8. Iron deficiency anemia with acute blood loss anemia. Iron supplementation has been added with vitamin C as well as Senna. 9. Deep vein thrombosis. Given acute blood loss anemia hematology/oncology has been consulted. Patient's Lovenox is on hold. IVC filter. 10. Gastroesophageal reflux disease. Continue PPI. 11. Constipation. Continue current medication. 12. Deep vein thrombosis prophylaxis. Thromboembolic deterrent stockings (TEDS) and sequential. IVC filter. Avoid anticoagulation given acute blood loss anemia secondary to right thigh hematoma. DISPOSITION: Pending clinical improvement, JRC, social work and PT VS,Fishbone, I+O VS, Fishbone, I+O Laboratory Tests 06/16/18 04:22 Red Blood Count 2.92 L, Mean Corpuscular Volume 92.5, Mean Corpuscular Hemoglobin 30.5, Mean Corpuscular Hemoglobin Concent 33.0, Red Cell Distribution Width 17.1 H, Calcium Level 7.6 L Vital Signs Date Time Temp Pulse Resp B/P (MAP) Pulse Ox O2 Delivery O2 Flow Rate FiO2 06/16/18 15:58 98.2 73 18 132/63 (86) 98 Room Air 06/11/18 04:00 2.0 I&O- Last 24 Hours up to 6 AM 06/16/18 06:00 Intake Total 1270 ml Output Total 3100 ml Balance -1830 ml ESTEBAN FALL MD Jun 16, 2018 19:58
[2018-06-16 20:37] VITALS: BP 119/63
[2018-06-16] MEDS: PARoxetine 20 MG TAB PO SCH (21:43)
[2018-06-16] MEDS: PRAVASTATIN 20 MG TAB PO SCH (21:44)
[2018-06-17] MEDS: ASCORBIC ACID 250 MG TAB PO SCH ×3 (00:04→20:46)
[2018-06-17 06:00] VITALS: BP 132/65
[2018-06-17 06:08] LABS: HEMATOCRIT 25.6 % (42.0-52.0); HEMOGLOBIN 8.5 g/dl (13.5-17.5); MEAN CORPUSCULAR HEMOGLOBIN 30.7 pg (27.0-33.0); MEAN CORPUSCULAR HGB CONC 33.2 g/dl (32.0-36.5); MEAN CORPUSCULAR VOLUME 92.4 fl (80.0-96.0); PLATELET COUNT, AUTOMATED 176 10^3/uL (150-450); RED BLOOD COUNT 2.77 10^6/uL (4.30-6.10); WHITE BLOOD COUNT 8.8 10^3/uL (4.0-10.0)
[2018-06-17 06:38] LABS: C REACTIVE PROTEIN QUANTITATIV 3.86 MG/DL (0.00-0.30)
[2018-06-17] MEDS: OMEPRAZOLE 20 MG CAP PO SCH (08:30)
[2018-06-17] MEDS: LACTOBACILLUS ACIDOPHILUS CAP (BACID) PO SCH ×2 (08:30→20:46)
[2018-06-17] MEDS: SENOKOT S TAB PO SCH ×2 (08:30→20:46)
[2018-06-17] MEDS: FERROUS SULFATE 325MG TAB PO SCH ×2 (08:30→20:46)
[2018-06-17] MEDS: HumaLOG INSULIN (NovoLOG) PER UNIT SC SCH ×4 (08:31→20:46)
[2018-06-17] MEDS: MIRALAX *UNIT DOSE* 17GM PACKET PO SCH (08:31)
[2018-06-17] MEDS: LEVEMIR (INSULIN DETEMIR) 1 UNITS/0.01ML SC SCH (08:31)
[2018-06-17] MEDS: cefTRIAXone SOD 1 GM in D5W MINI-BAG PLUS 50 ML IV SCH (08:31)
[2018-06-17 09:12] LABS: CALCIUM LEVEL 7.6 MG/DL (8.8-10.2); CREATININE FOR GFR 1.75 MG/DL (0.70-1.30); GLOMERULAR FILTRATION RATE 39.6 (>35); POTASSIUM SERUM 4.4 MEQ/L (3.5-5.1)
[2018-06-17] MEDS: PATIROMER SORBITEX CALCIUM 8.4 GM POWDER PACKET (VELTASSA) PO SCH (12:24)
[2018-06-17 14:00] VITALS: BP 128/74
[2018-06-17] MEDS: QUEtiapine FUMARATE **XR** 200MG TABLET PO SCH (16:33)
--- NOTE | 2018-06-17 19:46 | IPNPDOC ---
Text Note Date of Service The patient was seen on 06/17/18. NOTE He is a very poor historian. Denies any chest pain, pressure or discomfort. No sig pain reported. PHYSICAL EXAMINATION: GENERAL: Patient mildly confused in no acute distress. HEENT: Normocephalic, atraumatic. CARDIAC: Regular S1, S2. PULMONARY: Bilaterally clear. ABDOMEN: Soft, non-tender. Positive bowel sounds. Urostomy bag EXTREMITIES: Right hip with large hematoma. DP/PT pulses intact bilateral. Right lower extremity edematous, improved ASSESSMENT AND PLAN: This is an 83 to male patient with underlying medical history of mild mental retardation from [facility]. Hypertension, diabetes type 2 poorly controlled, chronic kidney disease stage 4, diastolic congestive heart failure, recurrent urinary tract infection, history of bladder and prostate cancer status post radical cystectomy and prostatectomy, with an ileal conduit, coronary artery disease with myocardial infarction ([place]) and recently diagnosed with deep vein thrombosis presented with weakness and episode of near syncope. Found to be in early DKA. 1. Generalized weakness and near syncopal episode. Possibly due to underlying infection versus acute blood loss anemia. Chest x-ray appreciated. 2. persistent leukocytosis, ecoli UTI, vs acute stress, rocephin , improved 3. Acute blood loss anemia secondary to right thigh hematoma, likely due to anticoagulation. X-ray negative for fracture. Consulted hematology/oncology. Patient's Lovenox on stopped to be restarted by vascular as outpatient. IVC filter given history of deep vein thrombosis recent. Dr. Melissa has been on consult. Will monitor for compartment syndrome with peripheral pulses. Further recommendation as per vascular surgery Dr. Melissa. X-rays appreciated and transfuse 5 units PRBCs. Follow up hemoglobin and hematocrit. improving 4. DMII with Early DKA. Patient bridges to basal bolus insulin. Beta hydroxy is negative. Continue to follow finger stick. A1c appreciated. Patient will likely need insulin as outpatient. 5. Chronic kidney disease stage 4 with hyperkalemia. Consulted nephrology. improved if PRBC and IVF. likely pre-renal. f/u lab, resolved 6. Coronary artery disease. Continue statin. 7. Depression. Continue current medication. 8. Iron deficiency anemia with acute blood loss anemia. Iron supplementation has been added with vitamin C as well as Senna. 9. Deep vein thrombosis. Given acute blood loss anemia hematology/oncology has been consulted. Patient's Lovenox is on hold. IVC filter. 10. Gastroesophageal reflux disease. Continue PPI. 11. Constipation. Continue current medication. 12. Deep vein thrombosis prophylaxis. Thromboembolic deterrent stockings (TEDS) and sequential. IVC filter. Avoid anticoagulation given acute blood loss anemia secondary to right thigh hematoma. DISPOSITION: Pending clinical improvement, JRC, social work and PT VS,Stanislav, I+O VS, Stanislav, I+O Laboratory Tests 06/17/18 05:14 Red Blood Count 2.77 L, Mean Corpuscular Volume 92.4, Mean Corpuscular Hemoglobin 30.7, Mean Corpuscular Hemoglobin Concent 33.2, Red Cell Distribution Width 17.2 H, Calcium Level 7.6 L Vital Signs Date Time Temp Pulse Resp B/P (MAP) Pulse Ox O2 Delivery O2 Flow Rate FiO2 06/17/18 14:00 97.7 71 16 128/74 (92) 99 Room Air 06/11/18 04:00 2.0 I&O- Last 24 Hours up to 6 AM 06/17/18 06:00 Intake Total 1840 ml Output Total 2975 ml Balance -1135 ml ESTEBAN FALL MD Jun 17, 2018 19:46
[2018-06-17] MEDS: PRAVASTATIN 20 MG TAB PO SCH (20:46)
[2018-06-17] MEDS: PARoxetine 20 MG TAB PO SCH (20:46)
[2018-06-17 22:00] VITALS: BP 121/67
[2018-06-18 05:51] LABS: HEMATOCRIT 27.1 % (42.0-52.0); HEMOGLOBIN 8.6 g/dl (13.5-17.5); MEAN CORPUSCULAR HEMOGLOBIN 30.1 pg (27.0-33.0); MEAN CORPUSCULAR HGB CONC 31.7 g/dl (32.0-36.5); MEAN CORPUSCULAR VOLUME 94.8 fl (80.0-96.0); PLATELET COUNT, AUTOMATED 208 10^3/uL (150-450); RED BLOOD COUNT 2.86 10^6/uL (4.30-6.10); WHITE BLOOD COUNT 7.8 10^3/uL (4.0-10.0)
[2018-06-18 06:00] VITALS: BP 112/60
[2018-06-18 06:13] LABS: C REACTIVE PROTEIN QUANTITATIV 3.89 MG/DL (0.00-0.30); CALCIUM LEVEL 7.9 MG/DL (8.8-10.2); CREATININE FOR GFR 1.57 MG/DL (0.70-1.30); GLOMERULAR FILTRATION RATE 44.9 (>35); MAGNESIUM LEVEL 1.8 MG/DL (1.8-2.4); POTASSIUM SERUM 4.7 MEQ/L (3.5-5.1)
[2018-06-18] MEDS: cefTRIAXone SOD 1 GM in D5W MINI-BAG PLUS 50 ML IV SCH (08:10)
[2018-06-18] MEDS: LEVEMIR (INSULIN DETEMIR) 1 UNITS/0.01ML SC SCH (08:11)
[2018-06-18] MEDS: HumaLOG INSULIN (NovoLOG) PER UNIT SC SCH ×4 (08:12→21:08)
[2018-06-18] MEDS: LACTOBACILLUS ACIDOPHILUS CAP (BACID) PO SCH ×2 (08:12→21:07)
[2018-06-18] MEDS: ASCORBIC ACID 250 MG TAB PO SCH ×2 (08:12→21:07)
[2018-06-18] MEDS: OMEPRAZOLE 20 MG CAP PO SCH (08:12)
[2018-06-18] MEDS: MIRALAX *UNIT DOSE* 17GM PACKET PO SCH (08:12)
[2018-06-18] MEDS: SENOKOT S TAB PO SCH ×2 (08:12→21:07)
[2018-06-18] MEDS: FERROUS SULFATE 325MG TAB PO SCH ×2 (08:12→21:07)
[2018-06-18] MEDS: PATIROMER SORBITEX CALCIUM 8.4 GM POWDER PACKET (VELTASSA) PO SCH (12:30)
--- NOTE | 2018-06-18 13:04 | IPNPDOC ---
Text Note Date of Service The patient was seen on 06/18/18. NOTE Subjective: Patient feels well. Denies any pain at the right thigh region. Objective: Vitals: (see below) General: No acute distress, laying comfortably in bed. HEENT: Moist mucous membranes. Neck: No JVD or lymphadenopathy Cardiac: RRR, No murmurs Pulm: Clear to auscultation b/l. No wheezing, rhonchi Abd: NT/ND + BS Ext: Swelling of the right lower extremity, with mild bruising at the hematoma site extending from the right thorax down to the thigh. Distal pulses intact. Moving all extremities. Following commands. Labs (see below) Assessment/Plan 1. Generalized weakness and near syncopal episode likely secondary to blood loss anemia right thigh hematoma. Patient was on anticoagulation, Lovenox. Patient is now status post IVC filter. Anticoagulation is held. On SCDs. Status post 5 units PRBC. Hemoglobin stable need for transfusion today. 2. Uncontrolled diabetes mellitus. ? DKA presentation. On Levemir/sliding scale insulin now. 3. 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 Creatinine at baseline. Avoid nephrotoxins. Appreciate and frontal. 4. History of depression continue home meds 5. History of CAD continue home meds 6. History of GERD on PPI 7. Leukocytosis improved. ? UTI on rocephin. DVT prophy: SCDs/IVC filter Pending clinical improvement. [facility] patient. Physical therapy on board. VS,Fishbone, I+O VS, Fishbone, I+O Laboratory Tests 06/18/18 05:19 Red Blood Count 2.86 L, Mean Corpuscular Volume 94.8, Mean Corpuscular Hemoglobin 30.1, Mean Corpuscular Hemoglobin Concent 31.7 L, Red Cell Distribution Width 17.6 H, Calcium Level 7.9 L Vital Signs Date Time Temp Pulse Resp B/P (MAP) Pulse Ox O2 Delivery O2 Flow Rate FiO2 06/18/18 06:00 97.3 84 16 112/60 (77) 96 Room Air I&O- Last 24 Hours up to 6 AM 06/18/18 05:59 Intake Total 1870 ml Output Total 3250 ml Balance -1380 ml RAMON SUNG MD Jun 18, 2018 13:04
[2018-06-18 14:00] VITALS: BP 119/62
[2018-06-18] MEDS: QUEtiapine FUMARATE **XR** 200MG TABLET PO SCH (16:48)
[2018-06-18] MEDS: PARoxetine 20 MG TAB PO SCH (21:07)
[2018-06-18] MEDS: PRAVASTATIN 20 MG TAB PO SCH (21:07)
[2018-06-18 22:00] VITALS: BP 120/60
[2018-06-19 06:00] VITALS: BP 140/72
[2018-06-19] MEDS: SENOKOT S TAB PO SCH ×2 (07:29→20:42)
[2018-06-19] MEDS: LACTOBACILLUS ACIDOPHILUS CAP (BACID) PO SCH ×2 (07:29→20:42)
[2018-06-19] MEDS: ASCORBIC ACID 250 MG TAB PO SCH ×2 (07:29→20:42)
[2018-06-19] MEDS: FERROUS SULFATE 325MG TAB PO SCH ×2 (07:29→20:42)
[2018-06-19] MEDS: OMEPRAZOLE 20 MG CAP PO SCH (07:30)
[2018-06-19] MEDS: HumaLOG INSULIN (NovoLOG) PER UNIT SC SCH ×4 (07:30→20:43)
[2018-06-19] MEDS: MIRALAX *UNIT DOSE* 17GM PACKET PO SCH (07:30)
[2018-06-19] MEDS: LEVEMIR (INSULIN DETEMIR) 1 UNITS/0.01ML SC SCH (07:30)
[2018-06-19 08:22] LABS: HEMATOCRIT 29.5 % (42.0-52.0); HEMOGLOBIN 9.3 g/dl (13.5-17.5); MEAN CORPUSCULAR HEMOGLOBIN 30.6 pg (27.0-33.0); MEAN CORPUSCULAR HGB CONC 31.5 g/dl (32.0-36.5); PLATELET COUNT, AUTOMATED 203 10^3/uL (150-450); RED BLOOD COUNT 3.04 10^6/uL (4.30-6.10); WHITE BLOOD COUNT 7.2 10^3/uL (4.0-10.0)
[2018-06-19 08:42] LABS: ALBUMIN 2.4 GM/DL (3.2-5.2); BILIRUBIN,TOTAL 1.1 MG/DL (0.2-1.0); CALCIUM LEVEL 8.1 MG/DL (8.8-10.2); CREATININE FOR GFR 1.66 MG/DL (0.70-1.30); GLOMERULAR FILTRATION RATE 42.1 (>35); POTASSIUM SERUM 4.7 MEQ/L (3.5-5.1); TOTAL PROTEIN 6.1 GM/DL (6.4-8.2)
--- NOTE | 2018-06-19 11:34 | IPNPDOC ---
Text Note Date of Service The patient was seen on 06/19/18. NOTE Subjective: Pt is not participating with PT, and is deconditioned. Denies any pain. Objective: Vitals: (see below) General: No acute distress, laying comfortably in bed. HEENT: Moist mucous membranes. Neck: No JVD or lymphadenopathy Cardiac: RRR, No murmurs Pulm: Clear to auscultation b/l. No wheezing, rhonchi Abd: NT/ND + BS Ext: Swelling of the right lower extremity, with mild bruising at the hematoma site extending from the right thorax down to the thigh. Distal pulses intact. Moving all extremities. Following commands. Labs (see below) Assessment/Plan 1. Generalized weakness and near syncopal episode likely secondary to blood loss anemia right thigh hematoma. Patient was on anticoagulation, Lovenox. Patient is now status post IVC filter. Anticoagulation is held. On SCDs. Status post 5 units PRBC. Hemoglobin stable need for transfusion today. 2. Uncontrolled diabetes mellitus. ? DKA presentation. On Levemir/sliding scale insulin now. 3. 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 Creatinine at baseline. Avoid nephrotoxins. Appreciate and frontal. 4. History of depression continue home meds 5. History of CAD continue home meds 6. History of GERD on PPI 7. Leukocytosis improved. ? UTI on rocephin. DVT prophy: SCDs/IVC filter Pending clinical improvement. [facility] patient. Physical therapy on board. Overall prognosis guarded. Not participating with PT. VS,Fishbone, I+O VS, Fishbone, I+O Laboratory Tests 06/19/18 08:02 Red Blood Count 3.04 L, Mean Corpuscular Volume 97.0 H, Mean Corpuscular Hemoglobin 30.6, Mean Corpuscular Hemoglobin Concent 31.5 L, Red Cell Distribution Width 18.1 H, Calcium Level 8.1 L, Aspartate Amino Transf (AST/SGOT) 17, Alanine Aminotransferase (ALT/SGPT) 17, Alkaline Phosphatase 92, Total Bilirubin 1.1 H, Total Protein 6.1 L, Albumin 2.4 L Vital Signs Date Time Temp Pulse Resp B/P (MAP) Pulse Ox O2 Delivery O2 Flow Rate FiO2 06/19/18 06:00 97.5 74 18 140/72 (94) 95 Room Air I&O- Last 24 Hours up to 6 AM 06/19/18 06:00 Intake Total 1280 ml Output Total 2825 ml Balance -1545 ml RAMON SUNG MD Jun 19, 2018 11:34
[2018-06-19] MEDS: PATIROMER SORBITEX CALCIUM 8.4 GM POWDER PACKET (VELTASSA) PO SCH (12:02)
[2018-06-19 14:00] VITALS: BP 125/70
[2018-06-19] MEDS: QUEtiapine FUMARATE **XR** 200MG TABLET PO SCH (16:40)
[2018-06-19] MEDS: PARoxetine 20 MG TAB PO SCH (20:42)
[2018-06-19] MEDS: PRAVASTATIN 20 MG TAB PO SCH (20:42)
[2018-06-19 22:00] VITALS: BP 108/59
[2018-06-20] VITALS (8 sets, daily range): BP systolic 105–133; BP diastolic 23–65
[2018-06-20 05:41] LABS: HEMATOCRIT 27.1 % (42.0-52.0); HEMOGLOBIN 8.7 g/dl (13.5-17.5); MEAN CORPUSCULAR HEMOGLOBIN 30.4 pg (27.0-33.0); MEAN CORPUSCULAR HGB CONC 32.1 g/dl (32.0-36.5); MEAN CORPUSCULAR VOLUME 94.8 fl (80.0-96.0); PLATELET COUNT, AUTOMATED 222 10^3/uL (150-450); RED BLOOD COUNT 2.86 10^6/uL (4.30-6.10); WHITE BLOOD COUNT 6.6 10^3/uL (4.0-10.0)
[2018-06-20 06:11] LABS: CALCIUM LEVEL 7.6 MG/DL (8.8-10.2); CREATININE FOR GFR 1.63 MG/DL (0.70-1.30); POTASSIUM SERUM 4.5 MEQ/L (3.5-5.1)
[2018-06-20] MEDS: HumaLOG INSULIN (NovoLOG) PER UNIT SC SCH ×4 (08:30→21:00)
[2018-06-20] MEDS: LEVEMIR (INSULIN DETEMIR) 1 UNITS/0.01ML SC SCH (08:30)
[2018-06-20] MEDS: FERROUS SULFATE 325MG TAB PO SCH ×2 (08:31→21:53)
[2018-06-20] MEDS: ASCORBIC ACID 250 MG TAB PO SCH ×2 (08:31→21:53)
[2018-06-20] MEDS: OMEPRAZOLE 20 MG CAP PO SCH (08:31)
[2018-06-20] MEDS: SENOKOT S TAB PO SCH ×2 (08:32→21:53)
[2018-06-20] MEDS: MIRALAX *UNIT DOSE* 17GM PACKET PO SCH (08:32)
[2018-06-20] MEDS: LACTOBACILLUS ACIDOPHILUS CAP (BACID) PO SCH ×2 (08:32→21:53)
[2018-06-20] MEDS: PATIROMER SORBITEX CALCIUM 8.4 GM POWDER PACKET (VELTASSA) PO SCH (12:00)
--- NOTE | 2018-06-20 14:23 | IPNPDOC ---
Text Note Date of Service The patient was seen on 06/20/18. NOTE Subjective: Denies any complaints. No cp/sob/palpitation. RLE still swollen. Objective: Vitals: (see below) General: No acute distress, laying comfortably in bed. HEENT: Moist mucous membranes. Neck: No JVD or lymphadenopathy Cardiac: RRR, No murmurs Pulm: Clear to auscultation b/l. No wheezing, rhonchi Abd: NT/ND + BS Ext: Swelling of the right lower extremity, 2-3+ pitting, with mild bruising at the hematoma site extending from the right thorax down to the thigh. Distal pulses intact. Moving all extremities. Following commands. Labs (see below) Assessment/Plan 1. Generalized weakness and near syncopal episode likely secondary to blood loss anemia right thigh hematoma. Patient was on anticoagulation, Lovenox. Patient is now status post IVC filter. Anticoagulation is held. On SCDs. Status post 5 units PRBC. Hemoglobin stable - no need for transfusion today. Edema not improved. Discussed with Dr. Melissa who will see patient today as he noted pt may have femoral vein outflow obstruction. 2. Uncontrolled diabetes mellitus. ? DKA presentation. On Levemir/sliding scale insulin now. 3. 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 Creatinine at baseline. Avoid nephrotoxins. Ap preciate and frontal. 4. History of depression continue home meds 5. History of CAD continue home meds 6. History of GERD on PPI 7. Leukocytosis improved. ?UTI on Rocephin. DVT prophy: SCDs/IVC filter Pending clinical improvement. [facility] patient. Vascular surgery to re-eval pt. Physical therapy on board. Overall prognosis guarded. VS,Fishbone, I+O VS, Fishbone, I+O Laboratory Tests 06/20/18 05:21 Red Blood Count 2.86 L, Mean Corpuscular Volume 94.8, Mean Corpuscular Hemoglobin 30.4, Mean Corpuscular Hemoglobin Concent 32.1, Red Cell Distribution Width 17.3 H, Calcium Level 7.6 L Vital Signs Date Time Temp Pulse Resp B/P (MAP) Pulse Ox O2 Delivery O2 Flow Rate FiO2 06/20/18 06:00 97.7 72 17 107/62 (77) 100 Room Air I&O- Last 24 Hours up to 6 AM 06/20/18 06:00 Intake Total 1120 ml Output Total 1825 ml Balance -705 ml RAMON SUNG MD Jun 20, 2018 14:23
[2018-06-20] MEDS: QUEtiapine FUMARATE **XR** 200MG TABLET PO SCH (16:00)
[2018-06-20] MEDS ORDERED: dexameTHASONE 4 MG/ML 1ML VIAL (J1100) As Ordered ONE (16:24)
[2018-06-20] MEDS ORDERED: MIDAZOLAM INJ 2 MG/2 ML VIAL (J2250) As Ordered ONE (16:24)
[2018-06-20] MEDS ORDERED: LIDOCAINE 2% INJ 100 MG/5 ML SDV (FOR ANES.) As Ordered ONE (16:24)
[2018-06-20] MEDS ORDERED: PROPOFOL 200 MG/20 ML VIAL As Ordered ONE ×2 (16:24→16:58)
[2018-06-20] MEDS ORDERED: ONDANSETRON 4MG/2ML VIAL (J2405) As Ordered ONE (16:24)
[2018-06-20] MEDS ORDERED: fentaNYL 100 MCG/2 ML INJECTION (J3010) As Ordered ONE (16:24)
[2018-06-20] MEDS ORDERED: LR 1,000 ML IV SCH (18:00)
[2018-06-20] MEDS ORDERED: ONDANSETRON 4MG/2ML VIAL (J2405) IV PRN (18:00)
[2018-06-20] MEDS ORDERED: fentaNYL 100 MCG/2 ML INJECTION (J3010) IV PRN (18:00)
[2018-06-20] MEDS: PRAVASTATIN 20 MG TAB PO SCH (21:53)
[2018-06-20] MEDS: PARoxetine 20 MG TAB PO SCH (21:53)
[2018-06-21 00:20] VITALS: BP 129/65
[2018-06-21 06:00] VITALS: BP 117/57
[2018-06-21 06:16] LABS: HEMATOCRIT 29.2 % (42.0-52.0); HEMOGLOBIN 9.4 g/dl (13.5-17.5); MEAN CORPUSCULAR HEMOGLOBIN 30.2 pg (27.0-33.0); MEAN CORPUSCULAR HGB CONC 32.2 g/dl (32.0-36.5); MEAN CORPUSCULAR VOLUME 93.9 fl (80.0-96.0); PLATELET COUNT, AUTOMATED 260 10^3/uL (150-450); RED BLOOD COUNT 3.11 10^6/uL (4.30-6.10); WHITE BLOOD COUNT 6.6 10^3/uL (4.0-10.0)
[2018-06-21 06:36] LABS: CALCIUM LEVEL 7.8 MG/DL (8.8-10.2); CREATININE FOR GFR 1.66 MG/DL (0.70-1.30); GLOMERULAR FILTRATION RATE 42.1 (>35); POTASSIUM SERUM 4.9 MEQ/L (3.5-5.1)
[2018-06-21] MEDS: MIRALAX *UNIT DOSE* 17GM PACKET PO SCH (09:13)
[2018-06-21] MEDS: OMEPRAZOLE 20 MG CAP PO SCH (09:14)
[2018-06-21] MEDS: FERROUS SULFATE 325MG TAB PO SCH ×2 (09:14→21:27)
[2018-06-21] MEDS: SENOKOT S TAB PO SCH ×2 (09:14→21:26)
[2018-06-21] MEDS: LEVEMIR (INSULIN DETEMIR) 1 UNITS/0.01ML SC SCH (09:14)
[2018-06-21] MEDS: ASCORBIC ACID 250 MG TAB PO SCH ×2 (09:14→21:27)
[2018-06-21] MEDS: LACTOBACILLUS ACIDOPHILUS CAP (BACID) PO SCH ×2 (09:14→21:27)
[2018-06-21] MEDS: HumaLOG INSULIN (NovoLOG) PER UNIT SC SCH ×4 (09:14→21:00)
[2018-06-21 10:00] VITALS: BP 142/78
[2018-06-21] MEDS ORDERED: ONDANSETRON 4MG/2ML VIAL (J2405) IV PRN (12:00)
--- NOTE | 2018-06-21 13:29 | IPNPDOC ---
Text Note Date of Service The patient was seen on 06/21/18. NOTE Subjective: Denies any complaints. No cp/sob/palpitation. Status post evacuation of hematoma and wound VAC. Objective: Vitals: (see below) General: No acute distress, laying comfortably in bed. HEENT: Moist mucous membranes. Neck: No JVD or lymphadenopathy Cardiac: RRR, No murmurs Pulm: Clear to auscultation b/l. No wheezing, rhonchi Abd: NT/ND + BS Ext: Swelling of the right lower extremity, 2-3+ pitting, with mild bruising at the hematoma site extending from the right thorax down to the thigh. Distal pulses intact. Wound vac, upper thigh region of right leg. Moving all extremities. Following commands. Labs (see below) Assessment/Plan 1. Generalized weakness and near syncopal episode likely secondary to blood loss anemia right thigh hematoma. Patient was on anticoagulation, Lovenox. Patient is now status post IVC filter. Anticoagulation is held. On SCDs. Status post 5 units PRBC. Hemoglobin stable - no need for transfusion today. Edema not improved. S/p evacuation of hematoma by Dr. Melissa on 06/21/18 with wound VAC in place. 2. Uncontrolled diabetes mellitus. ? DKA presentation. On Levemir/sliding scale insulin now. 3. 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 Creatinine at baseline. Avoid nephrotoxins. Appreciate and frontal. 4. History of depression continue home meds 5. History of CAD continue home meds 6. History of GERD on PPI 7. Leukocytosis improved. ?UTI on Rocephin. DVT prophy: SCDs/IVC filter Pending clinical improvement. [facility] patient. Vascular surgery to re-eval pt. Physical therapy on board. Overall prognosis guarded. VS,Fishbone, I+O VS, Fishbone, I+O Laboratory Tests 06/21/18 05:19 Red Blood Count 3.11 L, Mean Corpuscular Volume 93.9, Mean Corpuscular Hemoglobin 30.2, Mean Corpuscular Hemoglobin Concent 32.2, Red Cell Distribution Width 17.3 H, Calcium Level 7.8 L Vital Signs Date Time Temp Pulse Resp B/P (MAP) Pulse Ox O2 Delivery O2 Flow Rate FiO2 06/21/18 10:00 98.2 80 18 142/78 (99) 97 Room Air I&O- Last 24 Hours up to 6 AM 06/21/18 06:00 Intake Total 1150 ml Output Total 2025 ml Balance -875 ml RAMON SUNG MD Jun 21, 2018 13:29
[2018-06-21 14:00] VITALS: BP 132/59
[2018-06-21] MEDS: QUEtiapine FUMARATE **XR** 200MG TABLET PO SCH (15:58)
[2018-06-21 18:00] VITALS: BP 123/66
[2018-06-21] MEDS: PARoxetine 20 MG TAB PO SCH (21:26)
[2018-06-21] MEDS: PRAVASTATIN 20 MG TAB PO SCH (21:27)
[2018-06-21 22:00] VITALS: BP 132/67
[2018-06-22 06:00] VITALS: BP 111/68
[2018-06-22 06:04] LABS: HEMATOCRIT 26.6 % (42.0-52.0); HEMOGLOBIN 8.4 g/dl (13.5-17.5); MEAN CORPUSCULAR HEMOGLOBIN 30.8 pg (27.0-33.0); MEAN CORPUSCULAR HGB CONC 31.6 g/dl (32.0-36.5); MEAN CORPUSCULAR VOLUME 97.4 fl (80.0-96.0); PLATELET COUNT, AUTOMATED 214 10^3/uL (150-450); RED BLOOD COUNT 2.73 10^6/uL (4.30-6.10); WHITE BLOOD COUNT 7.8 10^3/uL (4.0-10.0)
[2018-06-22 06:29] LABS: CALCIUM LEVEL 7.9 MG/DL (8.8-10.2); CREATININE FOR GFR 1.55 MG/DL (0.70-1.30); GLOMERULAR FILTRATION RATE 45.6 (>35); POTASSIUM SERUM 4.5 MEQ/L (3.5-5.1)
[2018-06-22] MEDS: LEVEMIR (INSULIN DETEMIR) 1 UNITS/0.01ML SC SCH (08:07)
[2018-06-22] MEDS: HumaLOG INSULIN (NovoLOG) PER UNIT SC SCH ×4 (08:08→21:12)
[2018-06-22] MEDS: LACTOBACILLUS ACIDOPHILUS CAP (BACID) PO SCH ×2 (08:08→20:25)
[2018-06-22] MEDS: MIRALAX *UNIT DOSE* 17GM PACKET PO SCH (08:08)
[2018-06-22] MEDS: OMEPRAZOLE 20 MG CAP PO SCH (08:09)
[2018-06-22] MEDS: ASCORBIC ACID 250 MG TAB PO SCH ×2 (08:09→20:25)
[2018-06-22] MEDS: FERROUS SULFATE 325MG TAB PO SCH ×2 (08:09→20:25)
[2018-06-22] MEDS: SENOKOT S TAB PO SCH ×2 (08:09→20:25)
--- NOTE | 2018-06-22 11:49 | IPNPDOC ---
Text Note Date of Service The patient was seen on 06/22/18. NOTE Subjective: Denies any complaints. Status post evacuation of hematoma and wound VAC. No acute changes overnight. Objective: Vitals: (see below) General: No acute distress, laying comfortably in bed. HEENT: Moist mucous membranes. Neck: No JVD or lymphadenopathy Cardiac: RRR, No murmurs Pulm: Clear to auscultation b/l. No wheezing, rhonchi Abd: NT/ND + BS Ext: Swelling of the right lower extremity, 2+ pitting, with mild bruising at the hematoma site extending from the right thorax down to the thigh. Distal pulses intact. Wound vac, upper thigh region of right leg. Moving all extremities. Following commands. Labs (see below) Assessment/Plan 1. Generalized weakness and near syncopal episode likely secondary to blood loss anemia right thigh hematoma. Patient was on anticoagulation, Lovenox. Patient is now status post IVC filter. Anticoagulation is held. On SCDs. Status post 5 units PRBC. Hemoglobin stable - no need for transfusion today. Edema not improved. S/p evacuation of hematoma by Dr. Melissa on 06/21/18 with wound [address]AC in place. 2. Uncontrolled diabetes mellitus. ? DKA presentation. On Levemir/sliding scale insulin now. 3. 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 Creatinine at baseline. Avoid nephrotoxins. Appreciate and frontal. 4. History of depression continue home meds 5. History of CAD continue home meds 6. History of GERD on PPI 7. Leukocytosis improved. ?UTI on Rocephin. DVT prophy: SCDs/IVC filter Pending clinical improvement. [facility] patient. Vascular surgery to re-eval pt. Physical therapy on board. Overall prognosis guarded. VS,Fishbone, I+O VS, Fishbone, I+O Laboratory Tests 06/22/18 05:15 Red Blood Count 2.73 L, Mean Corpuscular Volume 97.4 H, Mean Corpuscular Hemoglobin 30.8, Mean Corpuscular Hemoglobin Concent 31.6 L, Red Cell Distribution Width 17.4 H, Calcium Level 7.9 L Vital Signs Date Time Temp Pulse Resp B/P (MAP) Pulse Ox O2 Delivery O2 Flow Rate FiO2 06/22/18 06:00 97.9 71 18 111/68 (82) 94 Room Air I&O- Last 24 Hours up to 6 AM 06/22/18 05:59 Intake Total 1860 ml Output Total 2350 ml Balance -490 ml RAMON SUNG MD Jun 22, 2018 11:49
[2018-06-22 14:00] VITALS: BP 131/61
[2018-06-22] MEDS: QUEtiapine FUMARATE **XR** 200MG TABLET PO SCH (16:09)
[2018-06-22] MEDS: PARoxetine 20 MG TAB PO SCH (20:25)
[2018-06-22] MEDS: PRAVASTATIN 20 MG TAB PO SCH (20:25)
[2018-06-22 22:00] VITALS: BP 125/64
[2018-06-23 05:58] LABS: HEMATOCRIT 27.7 % (42.0-52.0); HEMOGLOBIN 8.7 g/dl (13.5-17.5); MEAN CORPUSCULAR HEMOGLOBIN 30.3 pg (27.0-33.0); MEAN CORPUSCULAR HGB CONC 31.4 g/dl (32.0-36.5); MEAN CORPUSCULAR VOLUME 96.5 fl (80.0-96.0); PLATELET COUNT, AUTOMATED 204 10^3/uL (150-450); RED BLOOD COUNT 2.87 10^6/uL (4.30-6.10); WHITE BLOOD COUNT 7.7 10^3/uL (4.0-10.0)
[2018-06-23 06:00] VITALS: BP 110/63
[2018-06-23 06:21] LABS: CALCIUM LEVEL 7.9 MG/DL (8.8-10.2); CREATININE FOR GFR 1.52 MG/DL (0.70-1.30); GLOMERULAR FILTRATION RATE 46.6 (>35); POTASSIUM SERUM 4.5 MEQ/L (3.5-5.1)
[2018-06-23] MEDS: LEVEMIR (INSULIN DETEMIR) 1 UNITS/0.01ML SC SCH (08:04)
[2018-06-23] MEDS: HumaLOG INSULIN (NovoLOG) PER UNIT SC SCH ×4 (08:05→21:00)
[2018-06-23] MEDS: SENOKOT S TAB PO SCH ×2 (08:05→21:13)
[2018-06-23] MEDS: LACTOBACILLUS ACIDOPHILUS CAP (BACID) PO SCH ×2 (08:05→21:13)
[2018-06-23] MEDS: MIRALAX *UNIT DOSE* 17GM PACKET PO SCH (08:05)
[2018-06-23] MEDS: OMEPRAZOLE 20 MG CAP PO SCH (08:05)
[2018-06-23] MEDS: ASCORBIC ACID 250 MG TAB PO SCH ×2 (08:05→21:13)
[2018-06-23] MEDS: FERROUS SULFATE 325MG TAB PO SCH ×2 (08:05→21:13)
--- NOTE | 2018-06-23 10:36 | IPNPDOC ---
Text Note Date of Service The patient was seen on 06/23/18. NOTE Subjective: Denies any complaints. Status post evacuation of hematoma and wound VAC. No acute changes overnight. RLE swelling improving Objective: Vitals: (see below) General: No acute distress, laying comfortably in bed. HEENT: Moist mucous membranes. Neck: No JVD or lymphadenopathy Cardiac: RRR, No murmurs Pulm: Clear to auscultation b/l. No wheezing, rhonchi Abd: NT/ND + BS Ext: Swelling of the right lower extremity, 1+ pitting, with mild bruising at the hematoma site extending from the right thorax down to the thigh. Distal pulses intact. Wound vac, upper thigh region of right leg. LE edema improving. Moving all extremities. Following commands. Labs (see below) Assessment/Plan 1. Generalized weakness and near syncopal episode likely secondary to blood loss anemia right thigh hematoma. Patient was on anticoagulation, Lovenox. Patient is now status post IVC filter. Anticoagulation is held. On SCDs. Status post 5 units PRBC. Hemoglobin stable - no need for transfusion today. Edema not improved. S/p evacuation of hematoma by Dr. Melissa on 06/21/18 with wound [address]AC in place. LE edema improving. 2. Uncontrolled diabetes mellitus. ? DKA presentation. On Levemir/sliding scale insulin now. 3. 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 Creatinine at baseline. Avoid nephrotoxins. Appreciate and frontal. 4. History of depression continue home meds 5. History of CAD continue home meds 6. History of GERD on PPI 7. Leukocytosis improved. ?UTI on Rocephin. DVT prophy: SCDs/IVC filter Pending clinical improvement. [facility] patient. Vascular surgery to re-eval pt. Physical therapy on board. Overall prognosis guarded. VS,Fishbone, I+O VS, Fishbone, I+O Laboratory Tests 06/23/18 05:17 Red Blood Count 2.87 L, Mean Corpuscular Volume 96.5 H, Mean Corpuscular Hemoglobin 30.3, Mean Corpuscular Hemoglobin Concent 31.4 L, Red Cell Di stribution Width 17.2 H, Calcium Level 7.9 L Vital Signs Date Time Temp Pulse Resp B/P (MAP) Pulse Ox O2 Delivery O2 Flow Rate FiO2 06/23/18 06:00 97.3 77 16 110/63 (62) 98 Room Air I&O- Last 24 Hours up to 6 AM 06/23/18 05:59 Intake Total 1680 ml Output Total 2825 ml Balance -1145 ml RAMON SUNG MD Jun 23, 2018 10:36
[2018-06-23 14:00] VITALS: BP 135/64
[2018-06-23] MEDS: QUEtiapine FUMARATE **XR** 200MG TABLET PO SCH (17:03)
[2018-06-23] MEDS: PRAVASTATIN 20 MG TAB PO SCH (21:13)
[2018-06-23] MEDS: PARoxetine 20 MG TAB PO SCH (21:14)
[2018-06-23 22:00] VITALS: BP 115/60
[2018-06-24 05:43] LABS: HEMATOCRIT 28.3 % (42.0-52.0); HEMOGLOBIN 9.1 g/dl (13.5-17.5); MEAN CORPUSCULAR HEMOGLOBIN 30.7 pg (27.0-33.0); MEAN CORPUSCULAR HGB CONC 32.2 g/dl (32.0-36.5); MEAN CORPUSCULAR VOLUME 95.6 fl (80.0-96.0); PLATELET COUNT, AUTOMATED 188 10^3/uL (150-450); RED BLOOD COUNT 2.96 10^6/uL (4.30-6.10); WHITE BLOOD COUNT 8.3 10^3/uL (4.0-10.0)
[2018-06-24 06:00] VITALS: BP 124/62
[2018-06-24 06:12] LABS: CREATININE FOR GFR 1.46 MG/DL (0.70-1.30); GLOMERULAR FILTRATION RATE 48.9 (>35); POTASSIUM SERUM 4.4 MEQ/L (3.5-5.1)
[2018-06-24] MEDS: LACTOBACILLUS ACIDOPHILUS CAP (BACID) PO SCH ×2 (08:25→23:21)
[2018-06-24] MEDS: OMEPRAZOLE 20 MG CAP PO SCH (08:26)
[2018-06-24] MEDS: MIRALAX *UNIT DOSE* 17GM PACKET PO SCH (08:26)
[2018-06-24] MEDS: SENOKOT S TAB PO SCH ×2 (08:26→23:22)
[2018-06-24] MEDS: FERROUS SULFATE 325MG TAB PO SCH ×2 (08:26→23:21)
[2018-06-24] MEDS: ASCORBIC ACID 250 MG TAB PO SCH ×2 (08:26→23:22)
[2018-06-24] MEDS: HumaLOG INSULIN (NovoLOG) PER UNIT SC SCH ×4 (08:27→23:22)
[2018-06-24] MEDS: LEVEMIR (INSULIN DETEMIR) 1 UNITS/0.01ML SC SCH (08:28)
--- NOTE | 2018-06-24 10:36 | IPNPDOC ---
Text Note Date of Service The patient was seen on 06/24/18. NOTE Subjective: Denies any complaints. Ambulating well with PT. RLE swelling imp roving Objective: Vitals: (see below) General: No acute distress, laying comfortably in bed. HEENT: Moist mucous membranes. Neck: No JVD or lymphadenopathy Cardiac: RRR, No murmurs Pulm: Clear to auscultation b/l. No wheezing, rhonchi Abd: NT/ND + BS Ext: Swelling of the right lower extremity, 1+ pitting, with mild bruising at the hematoma site extending from the right thorax down to the thigh. Distal pulses intact. Wound vac, upper thigh region of right leg. LE edema improving. Moving all extremities. Following commands. Labs (see below) Assessment/Plan 1. Generalized weakness and near syncopal episode likely secondary to blood loss anemia right thigh hematoma. Patient was on anticoagulation, Lovenox. Patient is now status post IVC filter. Anticoagulation is held. On SCDs. Status post 5 units PRBC. Hemoglobin stable - no need for transfusion today. Edema not improved. S/p evacuation of hematoma by Dr. Melissa on 06/21/[address] with wound VAC in place. LE edema improving. RLE u/s to r/o DVT. Due for wound vac change today. 2. Uncontrolled diabetes mellitus. ? DKA presentation. On Levemir/sliding scale insulin now. 3. 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 Creatinine at baseline. Avoid nephrotoxins. Appreciate and frontal. 4. History of depression continue home meds 5. History of CAD continue home meds 6. History of GERD on PPI 7. Leukocytosis improved. ?UTI on Rocephin. 8. RLE DVT- discussed with Dr. Melissa - pt has IVC filter. No anticoagulation recommended. DVT prophy: SCDs/IVC filter Pending clinical improvement. [facility] patient. Vascular surgery to re-eval pt. Physical therapy on board. Overall prognosis guarded. VS,Fishbone, I+O VS, Fishbone, I+O Laboratory Tests 06/24/18 05:15 Red Blood Count 2.96 L, Mean Corpuscular Volume 95.6, Mean Corpuscular Hemoglobin 30.7, Mean Corpuscular Hemoglobin Concent 32.2, Red Cell Distribution Width 17.1 H, Calcium Level 8.0 L Vital Signs Date Time Temp Pulse Resp B/P (MAP) Pulse Ox O2 Delivery O2 Flow Rate FiO2 06/24/18 06:00 98.2 78 16 124/62 (82) 95 Room Air I&O- Last 24 Hours up to 6 AM 06/24/18 05:59 Intake Total 1860 ml Output Total 2325 ml Balance -465 ml RAMON SUNG MD Jun 24, 2018 10:35
--- NOTE | 2018-06-24 11:11 | REP ---
Right lower extremity duplex venous ultrasound: History: Right leg swelling. Hematoma. Rule out DVT. Comparison is made with CT study of the right thigh from June 12, 2018 . Sonographic findings: This exam is somewhat limited. Midportion of the thigh could not be seen due to the dressing and wound vac. There is occlusive deep venous thrombosis however involving the mid and distal femoral vein and common femoral vein. The greater saphenous vein is occluded as well. Non occlusive thrombus is visible in the popliteal vein and posterior tibial vein trunk. Impression: The study is positive for occlusive and nonocclusive deep vein thrombosis. Electronically Signed by Antonio Brooks MD 06/24/2018 11:03 A
[2018-06-24] MEDS: QUEtiapine FUMARATE **XR** 200MG TABLET PO SCH (17:56)
--- NOTE | 2018-06-24 19:13 | IPNPDOC ---
Text Note Date of Service The patient was seen on 06/24/18. NOTE Pt was seen with Dr Melissa, c/o Rt thigh pain but improved. PE: LUngs: CTAB Heart: RRR Ext: RLE: thigh erythema and nonpitting edema, wound vac in place with mod to large dark serosanguineous fluid, DP and PT palpable. A/p: Continue current management per medicine Continue Wound vac on Rt thigh PT VS,Fishbone, I+O VS, Fishbone, I+O Laboratory Tests 06/24/18 05:15 Red Blood Count 2.96 L, Mean Corpuscular Volume 95.6, Mean Corpuscular Hemoglobin 30.7, Mean Corpuscular Hemoglobin Concent 32.2, Red Cell Distribution Width 17.1 H, Calcium Level 8.0 L Vital Signs Date Time Temp Pulse Resp B/P (MAP) Pulse Ox O2 Delivery O2 Flow Rate FiO2 06/24/18 06:00 98.2 78 16 124/62 (82) 95 Room Air I&O- Last 24 Hours up to 6 AM 06/24/18 05:59 Intake Total 1860 ml Output Total 2325 ml Balance -465 ml TRACI GIVENS PA-C Jun 24, 2018 19:13
[2018-06-24 22:00] VITALS: BP 114/72
[2018-06-24] MEDS: PARoxetine 20 MG TAB PO SCH (23:21)
[2018-06-24] MEDS: PRAVASTATIN 20 MG TAB PO SCH (23:22)
[2018-06-25 06:00] VITALS: BP 121/59
[2018-06-25 06:03] LABS: HEMATOCRIT 30.4 % (42.0-52.0); HEMOGLOBIN 9.8 g/dl (13.5-17.5); MEAN CORPUSCULAR HEMOGLOBIN 30.5 pg (27.0-33.0); MEAN CORPUSCULAR HGB CONC 32.2 g/dl (32.0-36.5); MEAN CORPUSCULAR VOLUME 94.7 fl (80.0-96.0); PLATELET COUNT, AUTOMATED 202 10^3/uL (150-450); RED BLOOD COUNT 3.21 10^6/uL (4.30-6.10); WHITE BLOOD COUNT 8.8 10^3/uL (4.0-10.0)
[2018-06-25 06:31] LABS: CALCIUM LEVEL 8.2 MG/DL (8.8-10.2); CREATININE FOR GFR 1.76 MG/DL (0.70-1.30); GLOMERULAR FILTRATION RATE 39.4 (>35); POTASSIUM SERUM 4.4 MEQ/L (3.5-5.1)
[2018-06-25] MEDS ORDERED: NS 1,000 ML IV SCH (08:30)
[2018-06-25] MEDS: SENOKOT S TAB PO SCH ×2 (09:02→20:52)
[2018-06-25] MEDS: ASCORBIC ACID 250 MG TAB PO SCH ×2 (09:02→20:52)
[2018-06-25] MEDS: MIRALAX *UNIT DOSE* 17GM PACKET PO SCH (09:02)
[2018-06-25] MEDS: OMEPRAZOLE 20 MG CAP PO SCH (09:02)
[2018-06-25] MEDS: LACTOBACILLUS ACIDOPHILUS CAP (BACID) PO SCH ×2 (09:02→20:51)
[2018-06-25] MEDS: FERROUS SULFATE 325MG TAB PO SCH ×2 (09:02→20:51)
[2018-06-25] MEDS: HumaLOG INSULIN (NovoLOG) PER UNIT SC SCH ×4 (09:02→20:52)
[2018-06-25] MEDS: LEVEMIR (INSULIN DETEMIR) 1 UNITS/0.01ML SC SCH (09:03)
[2018-06-25 14:00] VITALS: BP 112/70
[2018-06-25] MEDS: QUEtiapine FUMARATE **XR** 200MG TABLET PO SCH (17:17)
[2018-06-25] MEDS: CEFTAROLINE FOSAMIL 200 MG in D5W 50 ML IV SCH (18:02)
[2018-06-25] MEDS: PARoxetine 20 MG TAB PO SCH (20:51)
[2018-06-25] MEDS: PRAVASTATIN 20 MG TAB PO SCH (20:51)
--- NOTE | 2018-06-25 20:57 | IPN ---
DATE: 06/25/2018 Patient seen and examined. Denies any significant pain. Patient is a very poor historian. Wound VAC in place. No acute events overnight. No further history possible. VITAL SIGNS: Temperature 98.6, pulse 65, respirations 17, blood pressure 112/70, pulse oximetry is 97% on room air. LABORATORY DATA: WBC 8.8, hemoglobin and hematocrit 9.8 over 30.4, platelets 202. Chemistry: Sodium 138, potassium 4.4, chloride 105, bicarbonate 24, BUN 37, creatinine 1.76. PHYSICAL EXAMINATION: GENERAL: Patient in no acute distress, comfortable. HEENT: Normocephalic, atraumatic. Moist mucous membranes. NECK: Supple. CARDIAC: Regular, S1, S2. PULMONARY: Bilaterally clear. ABDOMEN: Soft, nontender. EXTREMITIES: Right lower extremity swelling, 1+ edema. Hematoma site with wound VAC attached with mild induration in the surrounding tissue. Dorsalis pedis (DP), posterior tibial (PT) pulses intact bilaterally. 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 PROBLEMS: 1. Generalized weakness and near syncope, likely secondary to acute blood loss anemia due to right thigh hematoma. Patient was on anticoagulation, Lovenox on hold. Has an inferior vena cava (IVC) filter. Thromboembolism deterrents (TEDs) and sequentials for DVT prophylaxis. Transfused five units packed red blood cells (PRBC) in total. Monitor hemoglobin and hematocrit. Transfuse as needed. Status post evacuation of hematoma by Dr. Mleissa given worsening swelling. Currently has wound VAC in place. 2. Mild induration with surrounding wound VAC attachment, possible cellulitis. Started on Teflaro. Follow cultures. 3. Uncontrolled diabetes mellitus. Early DKA upon presentation. Currently on Levemir and sliding scale. Follow fingersticks. 4. History of chronic kidney disease stage III. Mild elevation of creatinine, IV fluids have been given. Avoid nephrotoxic agent. 5. Depression. Continue home medication. 6. History of coronary artery disease. Continue home medication. 7. Gastroesophageal reflux disease (GERD). Continue proton pump inhibitor (PPI). 8. Leukocytosis. Treated for UTI with Rocephin. Possible reactive. Currently resolved. 9. Right lower extremity DVT. Discussed with vascular surgery. Patient has an IVC filter. No anticoagulation recommended given massive blood loss due to hematoma. 10. DVT prophylaxis. Thromboembolism deterrents (TEDs) and sequential and IVC filter. DISPOSITION: Will need to arrange for wound care as an outpatient. Overall prognosis guarded.
[2018-06-25 22:00] VITALS: BP 133/74
[2018-06-26] MEDS: CEFTAROLINE FOSAMIL 200 MG in D5W 50 ML IV SCH (05:32)
[2018-06-26 06:00] VITALS: BP 108/59
[2018-06-26 06:18] LABS: HEMATOCRIT 26.7 % (42.0-52.0); HEMOGLOBIN 8.6 g/dl (13.5-17.5); MEAN CORPUSCULAR HEMOGLOBIN 30.4 pg (27.0-33.0); MEAN CORPUSCULAR HGB CONC 32.2 g/dl (32.0-36.5); MEAN CORPUSCULAR VOLUME 94.3 fl (80.0-96.0); PLATELET COUNT, AUTOMATED 175 10^3/uL (150-450); RED BLOOD COUNT 2.83 10^6/uL (4.30-6.10); WHITE BLOOD COUNT 5.4 10^3/uL (4.0-10.0)
[2018-06-26 06:41] LABS: CALCIUM LEVEL 7.4 MG/DL (8.8-10.2); CREATININE FOR GFR 1.66 MG/DL (0.70-1.30); GLOMERULAR FILTRATION RATE 42.1 (>35); MAGNESIUM LEVEL 1.6 MG/DL (1.8-2.4); POTASSIUM SERUM 4.3 MEQ/L (3.5-5.1)
[2018-06-26] MEDS ORDERED: MAG SULF 1GM/100ML (MAG RUN) 1 GM in APPROPRIATE DILUENT 1 EA IV ONE (08:00)
[2018-06-26] MEDS: LEVEMIR (INSULIN DETEMIR) 1 UNITS/0.01ML SC SCH (08:10)
[2018-06-26] MEDS: SENOKOT S TAB PO SCH ×2 (08:11→20:51)
[2018-06-26] MEDS: OMEPRAZOLE 20 MG CAP PO SCH (08:11)
[2018-06-26] MEDS: ASCORBIC ACID 250 MG TAB PO SCH ×2 (08:11→20:51)
[2018-06-26] MEDS: MIRALAX *UNIT DOSE* 17GM PACKET PO SCH (08:11)
[2018-06-26] MEDS: LACTOBACILLUS ACIDOPHILUS CAP (BACID) PO SCH ×2 (08:11→20:50)
[2018-06-26] MEDS: HumaLOG INSULIN (NovoLOG) PER UNIT SC SCH ×4 (08:11→20:51)
[2018-06-26] MEDS: FERROUS SULFATE 325MG TAB PO SCH ×2 (08:11→20:50)
[2018-06-26] MEDS: VANCOMYCIN HCL 1,000 MG, VIAL MATE ADAPTER 1 EACH in D5W 250 ML IV SCH (11:05)
--- NOTE | 2018-06-26 11:34 | PHACANCOPD ---
PHARMACY VANCOMYCIN DOSING Pt Demographics Demographics Patient Age:83 , Weight:80.600 , Gender: male Adjusted Body Weight Date: 06/26/18, Adjusted Body Weight: [70] Kg Events Past 24 Hours Events Past 24 Hours: NO: Dialysis, Diuretic Therapy, Change in CrCl, Fever, Elevation in WBC, Pending Diagnostics, Pending Procedures, Other Vancomycin Vancomycin indication: SEPSIS Vancomycin Target Ranges: 15-20 mcg/ml Vancomycin Load Y/N: Yes Load Dose Date Time Vancomycin Load Dose: 1.75G Date: 06/26/18 Time: 11 Vancomycin Dose Date: 06/26/18. Current Vancomycin Dose: [1GIV Q18H] Intermittent Dosing?: No Labs Labs Item Value Date Time White Blood Count 8.3 10^3/uL 06/24/18 0515 White Blood Count 8.8 10^3/uL 06/25/18 0515 White Blood Count 5.4 10^3/uL 06/26/18 0523 Creatinine 1.46 MG/DL H 06/24/18 0515 Creatinine 1.76 MG/DL H 06/25/18 0515 Creatinine 1.66 MG/DL H 06/26/18 0523 C-Reactive Protein, Quantitative 4.84 MG/DL H 06/25/18 1346 Micro Microbiology 06/25/18 Blood Culture, Received Pending 06/25/18 Blood Culture, Received Pending Creatinine Clearance Date:06/26/18. Creatinine Clearance: [~32ML/MIN]. Assessment and Plan Maintaining Current Dose?: Yes Reason for dose change: No Dose Change Pharmacist Note Pharmacist Note Date: 06/26/18. Pharmacist note: Pt is an 83 year old male being treated for s epsis goal trough 15-20mcg/ml. The patient has been treated with vancomycin here at [facility] in the past most recently 10/2016. To achieve goal the patient will receive 1.75g loading dose starting today @ 11. Maintenance therapy will consist of 1g iv every 18 hours starting 06/27/18 @ 05. We will continue to monitor and adjust the dose as needed. MADONNA MELO PHARMACY Jun 26, 2018 11:34
--- NOTE | 2018-06-26 11:55 | IPNPDOC ---
Subjective Date Seen The patient was seen on 06/26/18. Subjective Chief Complaint/HPI Didn't answer my question, as per RN no acute issue, RN request documentation for wound vac order. Objective Physical Examination General Exam: Positive: Alert, Moderate Distress Eye Exam: Positive: PERRLA, EOMI ENT Exam: Positive: Atraumatic Neck Exam: Positive: +2 carotid pulse wo bruit Chest Exam: Positive: Clear to auscultation, Normal air movement Heart Exam: Positive: Rate Normal, Normal S1, Normal S2 Telemetry: Positive: No significant arrhythmia Abdomen Exam: Positive: Normal bowel sounds Extremity Exam: Positive: Edema (RLE: thigh erythema and edema, wound vac in place with large amount of dark sanguinous drainage.), Normal pulses Assessment /Plan Assessment 1. POD # s/p Rt thigh hematoma evacuation on wound vac with large amount dark sanguinous drainage 2. RLE DVT and cellulitis. Venous Doppler with finding of occlusive DVT involving the mid and distal FV and CFV. The GSV is occluded as well. Pt on IVC filter. 3. Uncontrolled DM. 4. Hx CKD III. Mild elevation of creatinine, Avoid nephrotoxic agent. 5. CAD. 6. Depression. 7. GERD Plan/VTE VTE Prophylaxis Ordered?: Yes Plan 1. Continue current management per medicine. 2. Continue hematoma drain with wound vac. VS, I&O, 24H, Fishbone Vital Signs/I&O Vital Signs Date Time Temp Pulse Resp B/P (MAP) Pulse Ox O2 Delivery O2 Flow Rate FiO2 06/26/18 06:00 97.9 69 17 108/59 (75) 95 Room Air I&O- Last 24 Hours up to 6 AM 06/26/18 05:59 Intake Total 1995 ml Output Total 2825 ml Balance -830 ml Laboratory Data 24H LABS Laboratory Tests 2 06/25/18 12:09: Bedside Glucose (Misc Panel) 282H 06/25/18 13:46: C-Reactive Protein, Quantitative 4.84H 06/25/18 17:00: Bedside Glucose (Misc Panel) 210H 06/25/18 19:58: Bedside Glucose (Misc Panel) 198H 06/26/18 05:23: Nucleated Red Blood Cells % (auto) 0.0, Anion Gap 12, Glomerular Filtration Rate 42.1, Blood Urea Nitrogen 37H, Creatinine 1.66H, Sodium Level 139, Potassium Level 4.3, Chloride Level 106, Carbon Dioxide Level 21, Calcium Level 7.4L, Magnesium Level 1.6L CBC/BMP Laboratory Tests 06/26/18 05:23 Red Blood Count 2.83 L, Mean Corpuscular Volume 94.3, Mean Corpuscular Hemoglobin 30.4, Mean Corpuscular Hemoglobin Concent 32.2, Red Cell Distribution Width 16.8 H, Calcium Level 7.4 L Microbiology Microbiology 06/25/18 Blood Culture, Received Pending 06/25/18 Blood Culture, Received Pending TRACI GIVENS PA-C Jun 26, 2018 11:54
[2018-06-26] MEDS ORDERED: VANCOMYCIN HCL 750 MG, VIAL MATE ADAPTER 1 EACH in D5W 250 ML IV ONE (12:00)
[2018-06-26 14:00] VITALS: BP 122/59
[2018-06-26] MEDS: QUEtiapine FUMARATE **XR** 200MG TABLET PO SCH (16:38)
[2018-06-26] MEDS: CEFEPIME HCL 1 GM in D5W MINI-BAG PLUS 50 ML IV SCH (17:49)
--- NOTE | 2018-06-26 18:24 | REP ---
CT study of the right femur without contrast: History: Swelling. Comparison study June 12, 2018. CT findings: In the interval since the June 12, 2018 study, the largest portion of the right medial thigh hematoma has been evacuated. There is a small quantity of postoperative air at the evacuation site. A wound VAC is seen and a small air-filled skin defect is noted in the medial thighs soft tissues. Posteriorly there is still some residual hematoma into the locules which extend over a craniocaudal span of 14 and 13 cm respectively in the posterior medial thigh. No acute bony abnormality is appreciated. Vascular calcification is noted. Moderate stool in the rectum. Diffuse swelling persists in the subcutaneous space particularly at distally at the level of the knee. No significant knee joint effusion. Impression: The largest portion of the medial thigh hematoma has been evacuated. There is some residual hematoma posteriorly in the medial thigh. Electronically Signed by Antonio Brooks MD 06/26/2018 07:47 P
--- NOTE | 2018-06-26 18:34 | IPNPDOC ---
Text Note Date of Service The patient was seen on 06/26/18. NOTE Patient seen and examined. Denies any significant pain. Patient is a very poor historian. Wound VAC in place. No acute events overnight. No further history possible. RN reported worsening erythema and induration. PHYSICAL EXAMINATION: GENERAL: Patient in no acute distress, comfortable. HEENT: Normocephalic, atraumatic. Moist mucous membranes. NECK: Supple. CARDIAC: Regular, S1, S2. PULMONARY: Bilaterally clear. ABDOMEN: Soft, nontender. EXTREMITIES: Right lower extremity swelling, 1+ edema. Hematoma site with wound VAC attached with mild induration in the surrounding tissue. Dorsalis pedis (DP), posterior tibial (PT) pulses intact bilaterally. ASSESSMENT AND PLAN: This is an 83-year-old male patient with underlying medical history of mild mental retardation from [facility], hypertension, diabetes type 2, poorly controlled, chronic kidney disease stage IV, diastolic congestive heart failure, recurrent urinary tract infection (UTI), history of bladder cancer and prostate cancer, status post cystectomy with prostatectomy with ileoconduit, coronary artery disease with myocardial infarction ([place]), recently diagnosed with deep vein thrombosis (DVT), presented with weakness, near syncope, found to be in early diabetic ketoacidosis (DKA) and also with large right thigh hematoma. PROBLEMS: 1. Generalized weakness and near syncope, likely secondary to acute blood loss anemia due to right thigh hematoma. Patient was on anticoagulation, Lovenox on hold. Has an inferior vena cava (IVC) filter. Thromboembolism deterrents (TEDs) and sequentials for DVT prophylaxis. Transfused five units packed red blood cells (PRBC) in total. Monitor hemoglobin and hematocrit. Transfuse as needed. Status post evacuation of hematoma by Dr. Melissa given worsening swelling. Currently has wound VAC in place. 2. Mild induration with surrounding wound VAC attachment, possible cellulitis. crp, cefepime vanco. repeat ct scan. Follow cultures. 3. Uncontrolled diabetes mellitus. Early DKA upon presentation. Currently on Levemir and sliding scale. Follow fingersticks. 4. History of chronic kidney disease stage III. Mild elevation of creatinine, IV fluids have been given. Avoid nephrotoxic agent. 5. Depression. Continue home medication. 6. History of coronary artery disease. Continue home medication. 7. Gastroesophageal reflux disease (GERD). Continue proton pump inhibitor (PPI). 8. Leukocytosis. Treated for UTI with Rocephin. Possible reactive. Currently resolved. 9. Right lower extremity DVT. Discussed with vascular surgery. Patient has an IVC filter. No anticoagulation recommended given massive blood loss due to hematoma. 10. DVT prophylaxis. Thromboembolism deterrents (TEDs) and sequential and IVC filter. DISPOSITION: Will need to arrange for wound care as an outpatient. Overall prognosis guarded. VS,Fishbone, I+O VS, Fishbone, I+O Laboratory Tests 06/26/18 05:23 Red Blood Count 2.83 L, Mean Corpuscular Volume 94.3, Mean Corpuscular Hemoglobin 30.4, Mean Corpuscular Hemoglobin Concent 32.2, Red Cell Distribution Width 16.8 H, Calcium Level 7.4 L Vital Signs Date Time Temp Pulse Resp B/P (MAP) Pulse Ox O2 Delivery O2 Flow Rate FiO2 06/26/18 14:00 97.9 70 18 122/59 (80) 94 Room Air I&O- Last 24 Hours up to 6 AM 06/26/18 06:00 Intake Total 1995 ml Output Total 2775 ml Balance -780 ml ESTEBAN FALL MD Jun 26, 2018 18:34
[2018-06-26 20:00] VITALS: BP 110/65
[2018-06-26] MEDS: PARoxetine 20 MG TAB PO SCH (20:51)
[2018-06-26] MEDS: PRAVASTATIN 20 MG TAB PO SCH (20:51)
[2018-06-27] MEDS: VANCOMYCIN HCL 1,000 MG, VIAL MATE ADAPTER 1 EACH in D5W 250 ML IV SCH ×2 (05:56→22:04)
[2018-06-27 06:00] VITALS: BP 119/59
[2018-06-27 06:25] LABS: HEMATOCRIT 29.8 % (42.0-52.0); HEMOGLOBIN 9.5 g/dl (13.5-17.5); MEAN CORPUSCULAR HEMOGLOBIN 30.9 pg (27.0-33.0); MEAN CORPUSCULAR HGB CONC 31.9 g/dl (32.0-36.5); MEAN CORPUSCULAR VOLUME 97.1 fl (80.0-96.0); PLATELET COUNT, AUTOMATED 180 10^3/uL (150-450); RED BLOOD COUNT 3.07 10^6/uL (4.30-6.10); WHITE BLOOD COUNT 4.8 10^3/uL (4.0-10.0)
[2018-06-27 06:47] LABS: C REACTIVE PROTEIN QUANTITATIV 2.16 MG/DL (0.00-0.30); CALCIUM LEVEL 7.9 MG/DL (8.8-10.2); CREATININE FOR GFR 1.63 MG/DL (0.70-1.30); POTASSIUM SERUM 4.4 MEQ/L (3.5-5.1)
[2018-06-27] MEDS: LEVEMIR (INSULIN DETEMIR) 1 UNITS/0.01ML SC SCH (08:29)
[2018-06-27] MEDS: OMEPRAZOLE 20 MG CAP PO SCH (08:29)
[2018-06-27] MEDS: FERROUS SULFATE 325MG TAB PO SCH ×2 (08:29→21:55)
[2018-06-27] MEDS: HumaLOG INSULIN (NovoLOG) PER UNIT SC SCH ×4 (08:29→21:00)
[2018-06-27] MEDS: MIRALAX *UNIT DOSE* 17GM PACKET PO SCH (08:29)
[2018-06-27] MEDS: LACTOBACILLUS ACIDOPHILUS CAP (BACID) PO SCH ×2 (08:29→21:55)
[2018-06-27] MEDS: SENOKOT S TAB PO SCH ×2 (08:30→21:56)
[2018-06-27] MEDS: ASCORBIC ACID 250 MG TAB PO SCH ×2 (08:30→21:56)
[2018-06-27] MEDS ORDERED: NS 1,000 ML IV SCH (13:00)
[2018-06-27 14:00] VITALS: BP 141/69
[2018-06-27] MEDS ORDERED: fentaNYL 100 MCG/2 ML INJECTION (J3010) As Ordered ONE (14:43)
[2018-06-27] MEDS ORDERED: LIDOCAINE 2% INJ 100 MG/5 ML SDV (FOR ANES.) As Ordered ONE (14:43)
[2018-06-27] MEDS ORDERED: PROPOFOL 200 MG/20 ML VIAL As Ordered ONE (14:43)
[2018-06-27] MEDS ORDERED: MEPERIDINE INJ 25 MG/ML VIAL (J2175) IV PRN (15:30)
[2018-06-27] MEDS ORDERED: LR 1,000 ML IV SCH (15:30)
[2018-06-27] MEDS ORDERED: PERCOCET 5MG/325MG TAB PO PRN (15:30)
[2018-06-27] MEDS ORDERED: ONDANSETRON 4MG/2ML VIAL (J2405) IV PRN (15:30)
[2018-06-27] MEDS: QUEtiapine FUMARATE **XR** 200MG TABLET PO SCH (15:44)
[2018-06-27] MEDS: CEFEPIME HCL 1 GM in D5W MINI-BAG PLUS 50 ML IV SCH (17:28)
--- NOTE | 2018-06-27 18:43 | IPNPDOC ---
Text Note Date of Service The patient was seen on 06/27/18. NOTE Patient seen and examined. Denies any significant pain. Patient is a very poor historian. Wound VAC in place. No acute events overnight. No further history possible. PHYSICAL EXAMINATION: GENERAL: Patient in no acute distress, comfortable. HEENT: Normocephalic, atraumatic. Moist mucous membranes. NECK: Supple. CARDIAC: Regular, S1, S2. PULMONARY: Bilaterally clear. ABDOMEN: Soft, nontender. urostomy bag EXTREMITIES: Right lower extremity swelling, 1+ edema. Hematoma site with wound VAC attached with mild induration in the surrounding tissue. Dorsalis pedis (DP), posterior tibial (PT) pulses intact bilaterally. ASSESSMENT AND PLAN: This is an 83-year-old male patient with underlying medical history of mild mental retardation from [facility], hypertension, diabetes type 2, poorly controlled, chronic kidney disease stage IV, diastolic congestive heart failure, recurrent urinary tract infection (UTI), history of bladder cancer and prostate cancer, status post cystectomy with prostatectomy with ileoconduit, coronary artery disease with myocardial infarction ([place]), recently diagnosed with deep vein thrombosis (DVT), presented with weakness, near syncope, found to be in early diabetic ketoacidosis (DKA) and also with large right thigh hematoma. PROBLEMS: 1. Generalized weakness and near syncope, likely secondary to acute blood loss anemia due to right thigh hematoma. Patient was on anticoagulation, Lovenox on hold. Has an inferior vena cava (IVC) filter. Thromboembolism deterrents (TEDs) and sequentials for DVT prophylaxis. Transfused five units packed red blood cells (PRBC) in total. Monitor hemoglobin and hematocrit. Transfuse as needed. Status post evacuation of hematoma by Dr. Melissa given worsening swelling. Currently has wound VAC in place. 2. Mild induration with surrounding wound VAC attachment, possible cellulitis. crp, cefepime vanco. repeat ct scan. Follow cultures. wound exploration by vascular, consider switching to PO antibiotics over the weekend in anticipation of DC. 3. Uncontrolled diabetes mellitus. Early DKA upon presentation. Currently on Levemir and sliding scale. Follow fingersticks. 4. History of chronic kidney disease stage III. Mild elevation of creatinine, IV fluids have been given. Avoid nephrotoxic agent. 5. Depression. Continue home medication. 6. History of coronary artery disease. Continue home medication. 7. Gastroesophageal reflux disease (GERD). Continue proton pump inhibitor (PPI). 8. Leukocytosis. Treated for UTI with Rocephin. Possible reactive. Currently resolved. 9. Right lower extremity DVT. Discussed with vascular surgery. Patient has an IVC filter. No anticoagulation recommended given massive blood loss due to hematoma. 10. DVT prophylaxis. Thromboembolism deterrents (TEDs) and sequential and IVC filter. DISPOSITION: Will need to arrange for wound care as an outpatient. Overall prognosis guarded. VS,Fishbone, I+O VS, Fishbone, I+O Laboratory Tests 06/27/18 05:40 Red Blood Count 3.07 L, Mean Corpuscular Volume 97.1 H, Mean Corpuscular Hemoglobin 30.9, Mean Corpuscular Hemoglobin Concent 31.9 L, Red Cell Distribution Width 17.0 H, Calcium Level 7.9 L Vital Signs Date Time Temp Pulse Resp B/P (MAP) Pulse Ox O2 Delivery O2 Flow Rate FiO2 06/27/18 15:25 63 18 108/61 (77) 96 Room Air 06/27/18 15:14 97.8 I&O- Last 24 Hours up to 6 AM 06/27/18 06:00 Intake Total 1645 ml Output Total 3050 ml Balance -1405 ml ESTEBAN FALL MD Jun 27, 2018 18:43
[2018-06-27] MEDS: PRAVASTATIN 20 MG TAB PO SCH (21:56)
[2018-06-27] MEDS: PARoxetine 20 MG TAB PO SCH (21:56)
[2018-06-27 22:00] VITALS: BP 116/68
[2018-06-28 06:00] VITALS: BP 120/61
[2018-06-28 06:58] LABS: MEAN CORPUSCULAR HEMOGLOBIN 30.6 pg (27.0-33.0); MEAN CORPUSCULAR HGB CONC 32.1 g/dl (32.0-36.5); MEAN CORPUSCULAR VOLUME 95.2 fl (80.0-96.0); PLATELET COUNT, AUTOMATED 187 10^3/uL (150-450); RED BLOOD COUNT 2.94 10^6/uL (4.30-6.10); WHITE BLOOD COUNT 4.7 10^3/uL (4.0-10.0)
[2018-06-28 07:14] LABS: C REACTIVE PROTEIN QUANTITATIV 2.49 MG/DL (0.00-0.30); CALCIUM LEVEL 7.9 MG/DL (8.8-10.2); CREATININE FOR GFR 1.78 MG/DL (0.70-1.30); GLOMERULAR FILTRATION RATE 38.9 (>35); MAGNESIUM LEVEL 1.8 MG/DL (1.8-2.4); POTASSIUM SERUM 4.6 MEQ/L (3.5-5.1)
[2018-06-28] MEDS: ASCORBIC ACID 250 MG TAB PO SCH ×2 (09:00→20:38)
[2018-06-28] MEDS: HumaLOG INSULIN (NovoLOG) PER UNIT SC SCH ×4 (10:40→20:38)
[2018-06-28] MEDS: LEVEMIR (INSULIN DETEMIR) 1 UNITS/0.01ML SC SCH (10:40)
[2018-06-28] MEDS: SENOKOT S TAB PO SCH ×2 (10:41→20:38)
[2018-06-28] MEDS: OMEPRAZOLE 20 MG CAP PO SCH (10:41)
[2018-06-28] MEDS: MIRALAX *UNIT DOSE* 17GM PACKET PO SCH (10:41)
[2018-06-28] MEDS: LACTOBACILLUS ACIDOPHILUS CAP (BACID) PO SCH ×2 (10:41→20:37)
[2018-06-28] MEDS: FERROUS SULFATE 325MG TAB PO SCH ×2 (10:41→20:37)
[2018-06-28 14:00] VITALS: BP 114/56
[2018-06-28] MEDS: VANCOMYCIN HCL 1,000 MG, VIAL MATE ADAPTER 1 EACH in D5W 250 ML IV SCH (18:30)
[2018-06-28] MEDS: QUEtiapine FUMARATE **XR** 200MG TABLET PO SCH (18:30)
--- NOTE | 2018-06-28 20:19 | IPNPDOC ---
Text Note Date of Service The patient was seen on 06/28/18. NOTE Patient seen and examined. Denies any significant pain. Patient is a very poor historian. Wound VAC in place. No acute events overnight. No further history possible. PHYSICAL EXAMINATION: GENERAL: Patient in no acute distress, comfortable. HEENT: Normocephalic, atraumatic. Moist mucous membranes. NECK: Supple. CARDIAC: Regular, S1, S2. PULMONARY: Bilaterally clear. ABDOMEN: Soft, nontender. urostomy bag EXTREMITIES: Right lower extremity swelling, 1+ edema. Hematoma site with wound VAC attached with mild induration in the surrounding tissue. Dorsalis pedis (DP), posterior tibial (PT) pulses intact bilaterally. ASSESSMENT AND PLAN: This is an 83-year-old male patient with underlying medical history of mild mental retardation from [facility], hypertension, diabetes type 2, poorly controlled, chronic kidney disease stage IV, diastolic congestive heart failure, recurrent urinary tract infection (UTI), history of bladder cancer and prostate cancer, status post cystectomy with prostatectomy with ileoconduit, coronary artery disease with myocardial infarction ([place]), recently diagnosed with deep vein thrombosis (DVT), presented with weakness, near syncope, found to be in early diabetic ketoacidosis (DKA) and also with large right thigh hematoma. PROBLEMS: 1. Generalized weakness and near syncope, likely secondary to acute blood loss anemia due to right thigh hematoma. Patient was on anticoagulation, Lovenox on hold. Has an inferior vena cava (IVC) filter. Thromboembolism deterrents (TEDs) and sequentials for DVT prophylaxis. Transfused five units packed red blood cells (PRBC) in total. Monitor hemoglobin and hematocrit. Transfuse as needed. Status post evacuation of hematoma by Dr. Melissa given worsening swelling. Currently has wound VAC in place. wound exploration done 06/27. 2. Mild induration with surrounding wound VAC attachment, possible cellulitis. crp, vanco. repeat ct scan. cultures appreciated. wound exploration by vascular 06/27, switch to Augmentin with DC 3. Uncontrolled diabetes mellitus. Early DKA upon presentation. Currently on Levemir and sliding scale. Follow fingersticks. 4. History of chronic kidney disease stage III. Mild elevation of creatinine, IV fluids have been given. Avoid nephrotoxic agent. 5. Depression. Continue home medication. 6. History of coronary artery disease. Continue home medication. 7. Gastroesophageal reflux disease (GERD). Continue proton pump inhibitor (PPI). 8. Leukocytosis. Treated for UTI with Rocephin. Possible reactive. Currently resolved. 9. Right lower extremity DVT. Discussed with vascular surgery. Patient has an IVC filter. No anticoagulation recommended given massive blood loss due to hematoma. 10. DVT prophylaxis. Thromboembolism deterrents (TEDs) and sequential and IVC filter. DISPOSITION: outpatient arrangement . Overall prognosis guarded. VS,Fishbone, I+O VS, Fishbone, I+O Laboratory Tests 06/28/18 06:31 Red Blood Count 2.94 L, Mean Corpuscular Volume 95.2, Mean Corpuscular Hemoglobin 30.6, Mean Corpuscular Hemoglobin Concent 32.1, Red Cell Distribution Width 16.9 H, Calcium Level 7.9 L Vital Signs Date Time Temp Pulse Resp B/P (MAP) Pulse Ox O2 Delivery O2 Flow Rate FiO2 06/28/18 14:00 98.3 74 18 114/56 (75) 97 Room Air I&O- Last 24 Hours up to 6 AM 06/28/18 06:00 Intake Total 2215 ml Output Total 2555 ml Balance -340 ml ESTEBAN FALL MD Jun 28, 2018 20:19
[2018-06-28] MEDS: PARoxetine 20 MG TAB PO SCH (20:38)
[2018-06-28] MEDS: PRAVASTATIN 20 MG TAB PO SCH (20:38)
[2018-06-28 22:00] VITALS: BP 121/75
[2018-06-29 05:48] LABS: HEMATOCRIT 28.2 % (42.0-52.0); HEMOGLOBIN 9.1 g/dl (13.5-17.5); MEAN CORPUSCULAR HEMOGLOBIN 30.6 pg (27.0-33.0); MEAN CORPUSCULAR HGB CONC 32.3 g/dl (32.0-36.5); MEAN CORPUSCULAR VOLUME 94.9 fl (80.0-96.0); PLATELET COUNT, AUTOMATED 191 10^3/uL (150-450); RED BLOOD COUNT 2.97 10^6/uL (4.30-6.10)
[2018-06-29 06:00] VITALS: BP 132/60
[2018-06-29 06:10] LABS: C REACTIVE PROTEIN QUANTITATIV 2.13 MG/DL (0.00-0.30); CALCIUM LEVEL 7.9 MG/DL (8.8-10.2); CREATININE FOR GFR 1.75 MG/DL (0.70-1.30); GLOMERULAR FILTRATION RATE 39.6 (>35); MAGNESIUM LEVEL 1.7 MG/DL (1.8-2.4); POTASSIUM SERUM 4.5 MEQ/L (3.5-5.1)
[2018-06-29] MEDS: MIRALAX *UNIT DOSE* 17GM PACKET PO SCH (08:05)
[2018-06-29] MEDS: FERROUS SULFATE 325MG TAB PO SCH ×2 (08:06→21:42)
[2018-06-29] MEDS: SENOKOT S TAB PO SCH ×2 (08:06→21:42)
[2018-06-29] MEDS: ASCORBIC ACID 250 MG TAB PO SCH ×2 (08:06→21:42)
[2018-06-29] MEDS: OMEPRAZOLE 20 MG CAP PO SCH (08:06)
[2018-06-29] MEDS: LACTOBACILLUS ACIDOPHILUS CAP (BACID) PO SCH ×2 (08:06→21:42)
[2018-06-29] MEDS: HumaLOG INSULIN (NovoLOG) PER UNIT SC SCH ×4 (08:07→21:43)
[2018-06-29] MEDS: LEVEMIR (INSULIN DETEMIR) 1 UNITS/0.01ML SC SCH (08:07)
[2018-06-29] MEDS ORDERED: MAG SULF 1GM/100ML (MAG RUN) 1 GM in APPROPRIATE DILUENT 1 EA IV ONE (08:15)
[2018-06-29] MEDS: AUGMENTIN 875 MG TAB PO SCH ×2 (10:40→21:42)
[2018-06-29 14:00] VITALS: BP 104/63
[2018-06-29] MEDS: QUEtiapine FUMARATE **XR** 200MG TABLET PO SCH (18:14)
--- NOTE | 2018-06-29 20:00 | IPNPDOC ---
Text Note Date of Service The patient was seen on 06/29/18. NOTE Patient seen and examined. Denies any significant pain. Patient is a very poor historian. Wound VAC in place. No acute events overnight. No further history possible. PHYSICAL EXAMINATION: GENERAL: Patient in no acute distress, comfortable. HEENT: Normocephalic, atraumatic. Moist mucous membranes. NECK: Supple. CARDIAC: Regular, S1, S2. PULMONARY: Bilaterally clear. ABDOMEN: Soft, nontender. urostomy bag EXTREMITIES: Right lower extremity swelling, 1+ edema. Hematoma site with wound VAC attached with mild induration in the surrounding tissue. Dorsalis pedis (DP), posterior tibial (PT) pulses intact bilaterally. ASSESSMENT AND PLAN: This is an 83-year-old male patient with underlying medical history of mild mental retardation from [facility], hypertension, diabetes type 2, poorly controlled, chronic kidney disease stage IV, diastolic congestive heart failure, recurrent urinary tract infection (UTI), history of bladder cancer and prostate cancer, status post cystectomy with prostatectomy with ileoconduit, coronary artery disease with myocardial infarction ([place]), recently diagnosed with deep vein thrombosis (DVT), presented with weakness, near syncope, found to be in early diabetic ketoacidosis (DKA) and also with large right thigh hematoma. PROBLEMS: 1. Generalized weakness and near syncope, likely secondary to acute blood loss anemia due to right thigh hematoma. Patient was on anticoagulation, Lovenox on hold. Has an inferior vena cava (IVC) filter. Thromboembolism deterrents (TEDs) and sequentials for DVT prophylaxis. Transfused five units packed red blood cells (PRBC) in total. Monitor hemoglobin and hematocrit. Transfuse as needed. Status post evacuation of hematoma by Dr. Melissa given worsening swelling. Currently has wound VAC in place. wound exploration done 06/27. 2. Mild induration with surrounding wound VAC attachment, possible cellulitis. crp. repeat ct scan. cultures appreciated. wound exploration by vascular 06/27, switch to Augmentin 3. Uncontrolled diabetes mellitus. Early DKA upon presentation. Currently on Levemir and sliding scale. Follow fingersticks. 4. History of chronic kidney disease stage III. Mild elevation of creatinine, IV fluids have been given. Avoid nephrotoxic agent. 5. Depression. Continue home medication. 6. History of coronary artery disease. Continue home medication. 7. Gastroesophageal reflux disease (GERD). Continue proton pump inhibitor (PPI). 8. Leukocytosis. Treated for UTI with Rocephin. Possible reactive. Currently resolved. 9. Right lower extremity DVT. Discussed with vascular surgery. Patient has an IVC filter. No anticoagulation recommended given massive blood loss due to hematoma. 10. DVT prophylaxis. Thromboembolism deterrents (TEDs) and sequential and IVC filter. DISPOSITION: outpatient arrangement . Overall prognosis guarded. VS,Fishbone, I+O VS, Fishbone, I+O Laboratory Tests 06/29/18 05:11 Red Blood Count 2.97 L, Mean Corpuscular Volume 94.9, Mean Corpuscular Hemoglobin 30.6, Mean Corpuscular Hemoglobin Concent 32.3, Red Cell Distribution Width 16.2 H, Calcium Level 7.9 L Vital Signs Date Time Temp Pulse Resp B/P (MAP) Pulse Ox O2 Delivery O2 Flow Rate FiO2 06/29/18 14:00 97.9 72 18 104/63 (77) 96 Room Air I&O- Last 24 Hours up to 6 AM 06/29/18 06:00 Intake Total 1470 ml Output Total 2125 ml Balance -655 ml ESTEBAN FALL MD Jun 29, 2018 20:00
[2018-06-29] MEDS: PARoxetine 20 MG TAB PO SCH (21:42)
[2018-06-29] MEDS: PRAVASTATIN 20 MG TAB PO SCH (21:42)
[2018-06-29 22:00] VITALS: BP 108/55
[2018-06-30 06:00] VITALS: BP 106/55
[2018-06-30 06:44] LABS: HEMATOCRIT 28.8 % (42.0-52.0); HEMOGLOBIN 9.3 g/dl (13.5-17.5); MEAN CORPUSCULAR HEMOGLOBIN 30.8 pg (27.0-33.0); MEAN CORPUSCULAR HGB CONC 32.3 g/dl (32.0-36.5); MEAN CORPUSCULAR VOLUME 95.4 fl (80.0-96.0); PLATELET COUNT, AUTOMATED 195 10^3/uL (150-450); RED BLOOD COUNT 3.02 10^6/uL (4.30-6.10); WHITE BLOOD COUNT 5.5 10^3/uL (4.0-10.0)
[2018-06-30 07:07] LABS: C REACTIVE PROTEIN QUANTITATIV 1.6 MG/DL (0.00-0.30); CALCIUM LEVEL 7.9 MG/DL (8.8-10.2); CREATININE FOR GFR 1.73 MG/DL (0.70-1.30); GLOMERULAR FILTRATION RATE 40.2 (>35); MAGNESIUM LEVEL 1.9 MG/DL (1.8-2.4); POTASSIUM SERUM 4.6 MEQ/L (3.5-5.1)
[2018-06-30] MEDS: HumaLOG INSULIN (NovoLOG) PER UNIT SC SCH ×4 (08:39→21:00)
[2018-06-30] MEDS: LACTOBACILLUS ACIDOPHILUS CAP (BACID) PO SCH ×2 (08:40→20:13)
[2018-06-30] MEDS: ASCORBIC ACID 250 MG TAB PO SCH ×2 (08:40→20:14)
[2018-06-30] MEDS: LEVEMIR (INSULIN DETEMIR) 1 UNITS/0.01ML SC SCH (08:40)
[2018-06-30] MEDS: MIRALAX *UNIT DOSE* 17GM PACKET PO SCH (08:40)
[2018-06-30] MEDS: SENOKOT S TAB PO SCH ×2 (08:40→20:14)
[2018-06-30] MEDS: OMEPRAZOLE 20 MG CAP PO SCH (08:40)
[2018-06-30] MEDS: FERROUS SULFATE 325MG TAB PO SCH ×2 (08:40→20:13)
[2018-06-30] MEDS: AUGMENTIN 875 MG TAB PO SCH ×2 (08:40→20:13)
[2018-06-30 14:00] VITALS: BP 110/57
--- NOTE | 2018-06-30 14:32 | IPNPDOC ---
Text Note Date of Service The patient was seen on 06/30/18. NOTE Patient seen and examined. Denies any significant pain. Patient is a very poor historian. Wound VAC in place. No acute events overnight. No further history possible. PHYSICAL EXAMINATION: GENERAL: Patient in no acute distress, comfortable. HEENT: Normocephalic, atraumatic. Moist mucous membranes. NECK: Supple. CARDIAC: Regular, S1, S2. PULMONARY: Bilaterally clear. ABDOMEN: Soft, nontender. urostomy bag EXTREMITIES: Right lower extremity swelling, 2+ edema. Hematoma site with wound VAC attached with induration in the surrounding tissue. Dorsalis pedis (DP), posterior tibial (PT) pulses intact bilaterally. ASSESSMENT AND PLAN: This is an 83-year-old male patient with underlying medical history of mild mental retardation from [facility], hypertension, diabetes type 2, poorly controlled, chronic kidney disease stage IV, diastolic congestive heart failure, recurrent urinary tract infection (UTI), history of bladder cancer and prostate cancer, status post cystectomy with prostatectomy with ileoconduit, coronary artery disease with myocardial infarction ([place]), recently diagnosed with deep vein thrombosis (DVT), presented with weakness, near syncope, found to be in early diabetic ketoacidosis (DKA) and also with large right thigh hematoma. PROBLEMS: 1. Generalized weakness and near syncope, likely secondary to acute blood loss anemia due to right thigh hematoma. Patient was on anticoagulation, Lovenox on hold. Has an inferior vena cava (IVC) filter. Thromboembolism deterrents (TEDs) and sequentials for DVT prophylaxis. Transfused five units packed red blood cells (PRBC) in total. Monitor hemoglobin and hematocrit. Transfuse as needed. Status post evacuation of hematoma by Dr. Melissa given worsening swelling. Currently has wound VAC in place. wound exploration done 06/27. 2. induration with surrounding wound VAC attachment, possible cellulitis. crp. repeat ct scan. cultures appreciated. wound exploration by vascular 06/27, switch to Augmentin based on culture 3. Uncontrolled diabetes mellitus. Early DKA upon presentation. Currently on Levemir and sliding scale. Follow fingersticks. will need to be discharged on insulin 4. History of chronic kidney disease stage III. Mild elevation of creatinine, IV fluids have been given. Avoid nephrotoxic agent. 5. Depression. Continue home medication. 6. History of coronary artery disease. Continue home medication. 7. Gastroesophageal reflux disease (GERD). Continue proton pump inhibitor (PPI). 8. Leukocytosis. Treated for UTI with Rocephin. Possible reactive. Currently resolved. 9. Right lower extremity DVT. Discussed with vascular surgery. Patient has an IVC filter. No anticoagulation recommended given massive blood loss due to hematoma. 10. DVT prophylaxis. Thromboembolism deterrents (TEDs) and sequential and IVC filter. DISPOSITION: outpatient arrangement for wound care. Overall prognosis guarded. VS,Fishbone, I+O VS, Fishbone, I+O Laboratory Tests 06/30/18 05:59 Red Blood Count 3.02 L, Mean Corpuscular Volume 95.4, Mean Corpuscular Hemoglobin 30.8, Mean Corpuscular Hemoglobin Concent 32.3, Red Cell Distribution Width 16.5 H, Calcium Level 7.9 L Vital Signs Date Time Temp Pulse Resp B/P (MAP) Pulse Ox O2 Delivery O2 Flow Rate FiO2 06/30/18 06:00 97.6 69 16 106/55 (72) 95 Room Air I&O- Last 24 Hours up to 6 AM 06/30/18 05:59 Intake Total 2310 ml Output Total 2025 ml Balance 285 ml ESTEBAN FALL MD Jun 30, 2018 14:32
[2018-06-30] MEDS: QUEtiapine FUMARATE **XR** 200MG TABLET PO SCH (17:31)
[2018-06-30] MEDS: PRAVASTATIN 20 MG TAB PO SCH (20:14)
[2018-06-30] MEDS: PARoxetine 20 MG TAB PO SCH (20:16)
[2018-06-30 22:00] VITALS: BP 110/58
[2018-07-01 06:00] VITALS: BP 133/67
[2018-07-01 06:12] LABS: HEMATOCRIT 29.9 % (42.0-52.0); HEMOGLOBIN 9.6 g/dl (13.5-17.5); MEAN CORPUSCULAR HEMOGLOBIN 30.6 pg (27.0-33.0); MEAN CORPUSCULAR HGB CONC 32.1 g/dl (32.0-36.5); MEAN CORPUSCULAR VOLUME 95.2 fl (80.0-96.0); PLATELET COUNT, AUTOMATED 200 10^3/uL (150-450); RED BLOOD COUNT 3.14 10^6/uL (4.30-6.10); WHITE BLOOD COUNT 5.3 10^3/uL (4.0-10.0)
[2018-07-01 06:37] LABS: C REACTIVE PROTEIN QUANTITATIV 1.59 MG/DL (0.00-0.30); CALCIUM LEVEL 7.8 MG/DL (8.8-10.2); CREATININE FOR GFR 1.62 MG/DL (0.70-1.30); GLOMERULAR FILTRATION RATE 43.3 (>35); MAGNESIUM LEVEL 1.9 MG/DL (1.8-2.4); POTASSIUM SERUM 4.6 MEQ/L (3.5-5.1)
[2018-07-01] MEDS: ASCORBIC ACID 250 MG TAB PO SCH ×2 (09:51→20:08)
[2018-07-01] MEDS: AUGMENTIN 875 MG TAB PO SCH ×2 (09:51→19:59)
[2018-07-01] MEDS: FERROUS SULFATE 325MG TAB PO SCH ×2 (09:51→19:59)
[2018-07-01] MEDS: SENOKOT S TAB PO SCH ×2 (09:51→19:59)
[2018-07-01] MEDS: LACTOBACILLUS ACIDOPHILUS CAP (BACID) PO SCH ×2 (09:51→19:59)
[2018-07-01] MEDS: OMEPRAZOLE 20 MG CAP PO SCH (09:51)
[2018-07-01] MEDS: MIRALAX *UNIT DOSE* 17GM PACKET PO SCH (09:51)
[2018-07-01] MEDS: HumaLOG INSULIN (NovoLOG) PER UNIT SC SCH ×4 (09:52→21:53)
[2018-07-01] MEDS: LEVEMIR (INSULIN DETEMIR) 1 UNITS/0.01ML SC SCH (09:52)
[2018-07-01] MEDS ORDERED: ASCO25TA PO (13:38)
[2018-07-01] MEDS ORDERED: AMOX875T2 PO (13:38)
[2018-07-01] MEDS ORDERED: ALCOPAD17 TOP (13:38)
[2018-07-01] MEDS ORDERED: FERR1TAB8 PO (13:38)
[2018-07-01] MEDS ORDERED: LANC30MI XX (13:38)
[2018-07-01] MEDS ORDERED: PEN1MIS21 SC (13:38)
[2018-07-01] MEDS ORDERED: INSUDET SC (13:38)
[2018-07-01] MEDS ORDERED: GLUC1TES2 XX (13:38)
[2018-07-01] MEDS ORDERED: BLOOKIT21 XX (13:38)
[2018-07-01] MEDS ORDERED: INSU1MIS20 SC (13:38)
[2018-07-01 14:00] VITALS: BP 155/78
--- NOTE | 2018-07-01 16:05 | DSES ---
DATE OF ADMISSION: 06/10/2018 DATE OF DISCHARGE: Date of discharge unknown, pending arrangement for outpatient wound care. PRIMARY CARE PROVIDER: Dr. Sterling Marcelino VASCULAR SURGERY: Dr. Lisa Melissa BEHAVIORAL CONSULTANT: Dr. Lex Hicks ONCOLOGIST: Dr. Yarelis Espitia FINAL DIAGNOSES: Near syncope secondary to acute blood loss anemia due to right thigh hematoma likely related to anticoagulation, leukocytosis secondary to urinary tract infection (UTI), cellulitis of right thigh, uncontrolled diabetes mellitus with hyperglycemia, history of chronic kidney disease (CKD) stage III, depression, history of coronary artery disease, gastroesophageal reflux disease (GERD), right lower extremity deep venous thrombosis (DVT), right thigh hematoma. HISTORY OF PRESENT ILLNESS: This is an 83-year-old male patient with underlying medical history of mental retardation from [facility] ([facility]), hypertension, diabetes, chronic kidney disease (CKD) stage III, recurrent UTI, bladder cancer with ileal conduit, recently diagnosed with DVT presented with generalized weakness and near syncope. Patient lives at [facility]. Has been receiving a dose of Keflex and Bactrim for chronic UTI. IN the last month, blood glucose has been elevated and not controlled with his medication. On 05/29/2018, patient was diagnosed with DVT, placed on Lovenox. Patient with progressively worsening oral intake. On the day of admission, patient was walked by two aides and collapsed due to weakness, questionable unresponsiveness for 30 seconds. Was brought to the emergency room with oxygen saturation at 84%, placed on 2 liters nasal cannula with no apparent respiratory distress. HOSPITAL COURSE: Patient admitted to the hospital, was found to be hyperglycemic, initially on insulin drip but was bridged to basal bolus, also given IV fluids for hydration, started on IV antibiotics for UTI, Rocephin. Patient was also noted to have a large right thigh hematoma with acute blood loss anemia. Patient was transfused. Anticoagulation was discontinued. Vascular was consulted for inferior vena cava (IVC) filter and monitored for compartment syndrome. Patient completed course of antibiotics for UTI. Blood glucose basal bolus insulin has been adjusted. Given worsening swelling of patient's right thigh, patient was eventually taken for evacuation of hematoma with wound vacuum assisted closure (VAC) attachment, started back on antibiotics for presumed cellulitis around the site of surgery. Patient currently tolerating oral with wound VAC in place, afebrile with no significant leukocytosis, on oral antibiotics and ready to be discharged with further care and followup as outpatient. VITAL SIGNS: Temperature 97.8, pulse 77, respirations 18, blood pressure 155/78, pulse oximetry 95% on room air. LABORATORY DATA: WBC 5.3, hemoglobin and hematocrit 9.6/29.9, platelets 200. Chemistry: Sodium 138, potassium 4.6, chloride 107, bicarbonate 25, BUN 31, creatinine 1.6. GENERAL: Patient alert, poor historian, no acute distress. HEENT: Normocephalic, atraumatic. Moist mucous membranes. Neck supple. CARDIAC: Regular, S1, S2. PULMONARY: Bilateral clear. ABDOMEN: Soft, nontender. Urostomy bag in place. EXTREMITIES: Right lower extremity significant swelling, 2+. Hematoma site with wound VAC attached, mild swelling with mild erythema. Dorsalis pedis (DP), posterior tibial (PT) pulses intact bilateral. ASSESSMENT AND PLAN: This is an 83-year-old male patient with underlying medical history of mental retardation from [facility] ([facility]), hypertension, diabetes mellitus type 2, poorly controlled, chronic kidney disease stage IV, diastolic congestive heart failure, recurrent urinary tract infection (UTI), history of bladder cancer, prostate cancer status post cystectomy and prostatectomy with ileal conduit, coronary artery disease with myocardial infarction ([place]), recently diagnosed with deep venous thrombosis (DVT), presented with weakness, syncope, found to have early diabetic ketoacidosis (DKA), hyperglycemia, as well as large right thigh hematoma. 1. Generalized weakness, likely secondary to acute blood loss anemia due to right thigh hematoma. Anticoagulation with Lovenox was discontinued. Has an inferior vena cava (IVC) filter. Thromboembolism deterrents (TEDs) and sequentials for deep venous thrombosis (DVT) prophylaxis. Transfused a total of 5 units packed red blood cells (PRBCs) during this admission. Monitored hemoglobin and hematocrit. Patient was taken by vascular surgery, Dr. Melissa, for evacuation of hematoma and again on 06/27/2018 for exploration of the wound. Currently, has wound vacuum assisted closure (VAC) in place. 2. Right thigh cellulitis related to underlying hematoma. Wound vacuum assisted closure (VAC) in place. Antibiotics switched to oral Augmentin based on culture. Status post wound exploration 06/27/2018. 3. Uncontrolled diabetes. Early diabetic ketoacidosis (DKA) on presentation. Basal bolus insulin. Will be discharged on Levemir insulin going home. Further followup with primary care provider for improved glucose control. 4. History of chronic kidney disease (CKD) stage III. Currently at baseline. 5. Depression. Continue current medication. 6. Coronary artery disease. Continue home medication. 7. Gastroesophageal reflux disease (GERD). Continue proton pump inhibitor (PPI). 8. Leukocytosis. Treated for urinary tract infection (UTI) with Rocephin. Currently resolved. 9. Right lower extremity deep venous thrombosis (DVT). Discussed with vascular. Currently with inferior vena cava (IVC) filter. No anticoagulation given massive blood loss due to hematoma. 10. Deep venous thrombosis (DVT) prophylaxis. Inferior vena cava (IVC) filter, thromboembolism deterrents (TEDs) and sequentials. Avoid anticoagulation given massive hematoma with acute blood loss anemia during this hospital course. DISPOSITION: Overall prognosis guarded. Outpatient wound care. Followup with vascular. DISCHARGE MEDICATIONS: - Augmentin 875/125 mg tablet by mouth twice a day for 10 days - vitamin C 250 mg by mouth twice a day - ferrous sulfate 325 mg by mouth twice a day - acetaminophen 650 mg by mouth every 4 hours as needed - Dulcolax rectal suppository 10 mg per rectum as needed - calcium with vitamin D by mouth twice a day - Debrox every other week - Colace 100 mg by mouth twice a day - glimepiride 6 mg by mouth daily - Bacid one tablet by mouth twice a day - omeprazole 20 mg by mouth nightly - Paxil 60 mg by mouth nightly - MiraLAX by mouth every morning - pravastatin 40 mg by mouth nightly - Seroquel 200 mg by mouth daily - Senna Plus by mouth twice a day - Januvia 25 mg by mouth daily - Levemir 18 units subcutaneous daily DISCHARGE INSTRUCTIONS: Please followup with vascular surgery in 1 week. Please see primary in 7 days. Need improved glycemic control. Return to hospital if symptoms worsen.
[2018-07-01] MEDS: QUEtiapine FUMARATE **XR** 200MG TABLET PO SCH (17:19)
[2018-07-01] MEDS: PARoxetine 20 MG TAB PO SCH (19:59)
[2018-07-01] MEDS: PRAVASTATIN 20 MG TAB PO SCH (19:59)
[2018-07-01 22:00] VITALS: BP 105/58
[2018-07-02 06:00] VITALS: BP 107/56
[2018-07-02 06:26] LABS: HEMATOCRIT 30.9 % (42.0-52.0); MEAN CORPUSCULAR HEMOGLOBIN 30.7 pg (27.0-33.0); MEAN CORPUSCULAR HGB CONC 32.4 g/dl (32.0-36.5); MEAN CORPUSCULAR VOLUME 94.8 fl (80.0-96.0); PLATELET COUNT, AUTOMATED 224 10^3/uL (150-450); RED BLOOD COUNT 3.26 10^6/uL (4.30-6.10); WHITE BLOOD COUNT 6.1 10^3/uL (4.0-10.0)
[2018-07-02 06:48] LABS: C REACTIVE PROTEIN QUANTITATIV 1.98 MG/DL (0.00-0.30); CALCIUM LEVEL 8.1 MG/DL (8.8-10.2); CREATININE FOR GFR 1.61 MG/DL (0.70-1.30); GLOMERULAR FILTRATION RATE 43.6 (>35); MAGNESIUM LEVEL 1.8 MG/DL (1.8-2.4); POTASSIUM SERUM 4.5 MEQ/L (3.5-5.1)
[2018-07-02] MEDS: LACTOBACILLUS ACIDOPHILUS CAP (BACID) PO SCH (08:46)
[2018-07-02] MEDS: LEVEMIR (INSULIN DETEMIR) 1 UNITS/0.01ML SC SCH (08:47)
[2018-07-02] MEDS: MIRALAX *UNIT DOSE* 17GM PACKET PO SCH (08:47)
[2018-07-02] MEDS: SENOKOT S TAB PO SCH (08:47)
[2018-07-02] MEDS: ASCORBIC ACID 250 MG TAB PO SCH (08:47)
[2018-07-02] MEDS: FERROUS SULFATE 325MG TAB PO SCH (08:47)
[2018-07-02] MEDS: OMEPRAZOLE 20 MG CAP PO SCH (08:47)
[2018-07-02] MEDS: AUGMENTIN 875 MG TAB PO SCH (08:47)
[2018-07-02] MEDS: HumaLOG INSULIN (NovoLOG) PER UNIT SC SCH (08:48)
--- NOTE | 2018-07-02 08:54 | IPNPDOC ---
Date Seen The patient was seen on 07/02/18. Progress Note SUBJECTIVE: Patient seen and examined. Chart has been reviewed. Denies any significant pain. No skin breakdown. Pt is cooperative. Ileal conduit in place. Wound VAC in place. No acute events overnight. No further history possible. PHYSICAL EXAMINATION: GENERAL: Patient in no acute distress, comfortable. HEENT: Normocephalic, atraumatic. Moist mucous membranes. NECK: Supple. CARDIAC: Regular, S1, S2. PULMONARY: Bilaterally clear. ABDOMEN: Soft, nontender. urostomy bag EXTREMITIES: Right lower extremity swelling, 2+ edema. Hematoma site with wound VAC attached with induration in the surrounding tissue. Dorsalis pedis (DP), posterior tibial (PT) pulses intact bilaterally. ASSESSMENT AND PLAN: This is an 83-year-old male patient with underlying medical history of mild mental retardation from [facility], hypertension, diabetes type 2, poorly controlled, chronic kidney disease stage IV, diastolic congestive heart failure, recurrent urinary tract infection (UTI), history of bladder cancer and prostate cancer, status post cystectomy with prostatectomy with ileoconduit, coronary artery disease with myocardial infarction ([place]), recently diagnosed with deep vein thrombosis (DVT), presented with weakness, near syncope, found to be in early diabetic ketoacidosis (DKA) and also with large right thigh hematoma. PROBLEMS: 1. Generalized weakness and near syncope, likely secondary to acute blood loss anemia due to right thigh hematoma. Patient was on anticoagulation, Lovenox on hold. Has an inferior vena cava (IVC) filter. Thromboembolism deterrents (TEDs) and sequentials for DVT prophylaxis. Transfused five units packed red blood cells (PRBC) in total. Monitor hemoglobin and hematocrit. Transfuse as needed. Status post evacuation of hematoma by Dr. Melissa given worsening swelling. Currently has wound VAC in place. wound exploration done 06/27. 2. induration with surrounding wound VAC attachment, possible cellulitis. rp. repeat ct scan. cultures appreciated. wound exploration by vascular 06/27, switch to Augmentin based on culture 3. Uncontrolled diabetes mellitus. Early DKA upon presentation. Currently on Levemir and sliding scale. Follow fingersticks. will need to be discharged on insulin 4. History of chronic kidney disease stage III. Mild elevation of creatinine, IV fluids have been given. Avoid nephrotoxic agent. 5. Depression. Continue home medication. 6. History of coronary artery disease. Continue home medication. 7. Gastroesophageal reflux disease (GERD). Continue proton pump inhibitor (PPI). 8. Leukocytosis. Treated for UTI with Rocephin. Possible reactive. Currently resolved. 9. Right lower extremity DVT. Discussed with vascular surgery. Patient has an IVC filter. No anticoagulation recommended given massive blood loss due to hematoma. 10. DVT prophylaxis. Thromboembolism deterrents (TEDs) and sequential and IVC filter. DISPOSITION: outpatient arrangement for wound care. Overall prognosis guarded. 2person max assists. dc to [facility] in 24-48hrs. VS, I&O, 24H, Fishbone Vital Signs/I&O Vital Signs Date Time Temp Pulse Resp B/P (MAP) Pulse Ox O2 Delivery O2 Flow Rate FiO2 07/01/18 22:00 97.0 88 19 105/58 (74) 94 Room Air I&O- Last 24 Hours up to 6 AM 07/02/18 06:00 Intake Total 1018 ml Output Total 1475 ml Balance -457 ml Laboratory Data 24H LABS Laboratory Tests 2 07/01/18 11:50: Bedside Glucose (Misc Panel) 182H 07/01/18 16:31: Bedside Glucose (Misc Panel) 108 07/01/18 20:27: Bedside Glucose (Misc Panel) 133H 07/02/18 06:12: Nucleated Red Blood Cells % (auto) 0.0, Anion Gap 6L, Glomerular Filtration Rate 43.6, Blood Urea Nitrogen 33H, Creatinine 1.61H, Sodium Level 137, Potassium Level 4.5, Chloride Level 107, Carbon Dioxide Level 24, Calcium Level 8.1L, Magnesium Level 1.8, C-Reactive Protein, Quantitative 1.98H CBC/BMP Laboratory Tests 07/02/18 06:12 Red Blood Count 3.26 L, Mean Corpuscular Volume 94.8, Mean Corpuscular Hemoglobin 30.7, Mean Corpuscular Hemoglobin Concent 32.4, Red Cell Distribution Width 16.3 H, Calcium Level 8.1 L Microbiology Microbiology 06/25/18 Blood Culture - Final, Complete NO GROWTH AFTER 5 DAYS 06/25/18 Blood Culture - Final, Complete NO GROWTH AFTER 5 DAYS 06/26/18 Wound Culture - Final, Complete Enterococcus Faecalis BILLY OSPINA MD Jul 02, 2018 06:51
--- NOTE | 2018-07-08 06:56 | REPIR ---
DATE OF PROCEDURE: 06/12/2018 ATTENDING SURGEON: Dr. Lisa Melissa BODY AND FRAME MAN: Janine Loco PREOPERATIVE DIAGNOSES: 1. Right lower extremity deep vein thrombosis (DVT). 2. Extensive right thigh hematoma. 3. Chronic renal insufficiency. POSTOPERATIVE DIAGNOSES: 1. Right lower extremity deep vein thrombosis (DVT). 2. Extensive right thigh hematoma. 3. Chronic renal insufficiency. PROCEDURES: Ultrasound-guided left common femoral vein cannulation. Inferior vena cava filter placement at the lumbar 3, lumbar 4 disc interspace level. INDICATION: The patient is an 83-year-old male with a large hematoma in and his right thigh who was found to have right lower extremity DVT and is unable to undergo anticoagulation due to the active hematoma in the right thigh. The patient will undergo a inferior vena cava filter placement, which is removable, and will be removed once the patient is stable and able to be anticoagulated. The patient is unable to make his own decisions and Aurea Smith at [phone] is the patient's healthcare proxy. The procedure was described and explained to her in detail, risks, benefits and alternative options were discussed with her, alternative treatment options included, but were not limited to no intervention, benefits included but were not limited to prevention of pulmonary embolus with the risk of . Risks included, but were not limited to, infection, bleeding, renal failure requiring hemodialysis, possible need for open surgical intervention, IVC filter migration, IVC filter thrombosis, possible intra-abdominal organ injury necessitating exploratory laparotomy with repair and removal of the IVC filter, adverse reaction to the prepping and draping materials, adverse reaction to the anesthesia and/or local anesthetic medications, cerebrovascular accident, myocardial infarction, pulmonary embolus, DVT, loss of limb, loss to life, poor outcome, poor satisfaction and poor results. All of Aurea Smith's questions were answered. Aurea Smith voices acceptance and understanding of these risks, benefits and alternative treatment options and consents to proceed. Risks of not performing the procedure included, but were not limited to, pulmonary embolus with . No promises or guarantees were made regarding the procedure, outcome and/or results. ANESTHESIA: Local with 10 mL of 2% lidocaine. FLUORO TIME: 1.1 minutes. CONTRAST: None. COMPLICATIONS: None. DRAINS: None. SPECIMENS: None. IMPLANTS: Retrievable inferior vena cava filter placed at the lumbar 3, lumbar 4 disc interspace level. PROCEDURE: The patient was taken to the angiography suite, placed supine on the angiography room table, and then prepped and draped in a standard surgical fashion. The left common femoral vein was evaluated ultrasound, noted to be easily compressible, widely patent and free of thrombus. Ultrasound was used again to guide cannulation of the left common femoral after the of the overlying tissue and skin were anesthetized with 2% lidocaine. Ultrasound was used to guide cannulation with real-time concurrent visualization of the entry of the needle into the left common femoral vein with a hard copy image preserved. The Microwire was advanced through the micropuncture needle, which was upsized to a micropuncture sheath. A Bentson wire was advanced through the micropuncture sheath, which was upsized to a introducer sheath. The filter was then placed under fluoroscopic guidance at the lumbar 3, lumbar 4 disc interspace as the patient was unable to undergo a venogram due to his chronic renal insufficiency and concerns for renal failure requiring hemodialysis. Final fluoroscopic image showed the filter to be in good position and good alignment. The sheath was removed and manual compression applied at the left common femoral vein entry site for hemostasis. Dressings were then applied. The patient tolerated the procedure well. All instrument, sponge and needle counts were correct at the end the case. There were no complications. Dr. Melissa was present for and directed the entire case. The patient was transferred to the holding area and subsequent to the ICU in stable condition. A phone call was placed to Aurea Smith describing the procedure results and findings and all of her questions were answered. RADIOLOGIC SUPERVISION INTERPRETATION: The initial ultrasound showed the left common femoral vein to be widely patent, easily compressible, and free of thrombus. Ultrasound was used to guide cannulation of the left common femoral vein with real-time concurrent visualization of the entry of the needle into the left common femoral vein. Fluoroscopy was used to place the filter at the lumbar 3, lumbar 4 disc interspace level with final fluoroscopic image showing the filter to be in good position and good alignment.
--- NOTE | 2018-07-08 08:11 | RO ---
DATE OF PROCEDURE: 06/20/2018 ATTENDING SURGEON: Dr. Lisa Melissa TELECOMMUNICATIONS FACILITY EXAMINER: None. PREOPERATIVE DIAGNOSES: Right lower extremity DVT. Right lower extremity swelling. Right lower extremity cellulitis. Right thigh hematoma. Chronic renal insufficiency. POSTOPERATIVE DIAGNOSES Right lower extremity DVT. Right lower extremity swelling. Right lower extremity cellulitis. Right thigh hematoma. Chronic renal insufficiency. PROCEDURE: Right thigh hematoma evacuation. VAC dressing placement. INDICATION: The patient is an 83-year-old male who was admitted to the hospital and found to have a large right thigh hematoma. This was initially managed conservatively, but the patient has now developed cellulitis in the skin overlying the hematoma and there was concerns for infections of the hematoma and necrosis of the skin. The patient will undergo evacuation of the hematoma and placement of a VAC dressing. The patient is unable to make his own medical decisions and Aurea Smith at is the patient's health care decision maker. The procedure was described to her in detail. Risks, benefits and alternative options were discussed. Her alternative options included but were not limited to no intervention, benefits included but were not limited to evacuation of hematoma with preservation of the skin overlying the hematoma cavity and prevention of infection. Risks included but were not limited to infection, bleeding, renal failure requiring hemodialysis, possibly for further open surgical intervention, adverse reaction to the prepping and draping materials, adverse reaction to the anesthesia anesthetic and oral local anesthesia, possible need for transfusion of blood products, cerebrovascular accident, myocardial infarction, pulmonary embolus, deep venous thrombosis (DVT), loss of limb, loss to life, poor outcome, poor satisfaction and poor results. Aurea Smith's questions were all answered, Aurea Smith voices understanding and acceptance of these risks, benefits and alternative treatment options and consents to proceed. Risks of not performing the procedure included were not limited to infection with worsening cellulitis and possible skin necrosis, loss of limb and/or loss to life, no promises or guarantees were made regarding the procedure outcome and/or results. ANESTHESIA: Monitored anesthesia care (MAC). ESTIMATED BLOOD LOSS: 20 mL of acute blood loss. 2000 mL of old hematoma. IV FLUIDS: 250 mL. COMPLICATIONS: None. DRAINS: None. SPECIMENS: None. IMPLANTS: None. PROCEDURE: The patient was taken to the operating room, placed supine on the operating room table and then prepped and draped in a standard surgical fashion. A time-out was conducted by myself and the team members in the room confirming the correct patient, procedure and laterality. A small incision was made over the apex of the hematoma and the medial thigh and the incision was carried down through the skin, subcutaneous tissue into the hematoma cavity and was approximately 3 cm in length. A large amount of old blood fluid and hematoma were evacuated from the cavity with approximately 2000 mL of old bloody fluid and hematoma evacuated. The cavity was then irrigated after which a VAC dressing was placed. The patient tolerated the procedure well. All instrument, sponge and needle counts were correct at the end of the case. There were no complications. Dr. Melissa was present for and directed the entire case. The patient was transferred to the recovery room and subsequent to the floor in stable condition. A call was placed to Aurea Smith's completion of the procedure describing the procedure findings and results with all her questions being answered.
--- NOTE | 2018-07-08 08:23 | RO ---
DATE OF PROCEDURE: 06/27/2018 PREOPERATIVE DIAGNOSES: 1. Right lower extremity deep vein thrombosis (DVT). 2. Chronic renal insufficiency. 3. Right thigh hematoma. POSTOPERATIVE DIAGNOSES: 1. Right lower extremity deep vein thrombosis (DVT). 2. Chronic renal insufficiency. 3. Right thigh hematoma. PROCEDURE: Right thigh wound VAC dressing change. Excisional debridement of right thigh hematoma cavity with removal of skin, subcutaneous tissue, muscle and hematoma. ATTENDING SURGEON: Dr. Lisa Melissa BULK COOLER INSTALLER: None. INDICATION: The patient is an 83-year-old male who was admitted to the hospital and found to have a large right thigh hematoma and right lower extremity DVT. The patient underwent placement of inferior vena cava filter and conservative management of his right thigh hematoma until he developed cellulitis and concerns for infection of the hematoma and worsening pressure on the skin resulting in concerns for necrosis. The patient underwent evacuation of the hematoma with placement of a VAC. The patient will now undergo reevaluation of the wound with replacement of VAC and excision of all nonviable tissue. Risks, benefits and alternative treatment options were discussed with his health care decision maker, Aurea Smith at [phone]. The procedure was described and explained to the patient in detail. Risks, benefits and alternative treatment options were discussed with her. Alternative treatment options included, but were not limited to, no intervention. Benefits included, but were not limited to, continued healing of the wound. Risks included, but were not limited to, infection, bleeding, renal failure requiring hemodialysis, possible need for further open surgical intervention, adverse reaction to the prepping and draping materials, adverse reaction to the anesthesia and/or local anesthetic, cerebrovascular accident, myocardial infarction, pulmonary embolus, DVT, loss of limb, loss to life, poor outcome, poor satisfaction and poor results. All of her questions were answered. Risks of not performing the procedure included, nonhealing of the wound with infection with possible loss of limb and/or loss of life. Aurea Smith voices acceptance and understanding of these risks, benefits and alternative treatment options and consents to proceed. No promises or guarantees were made regarding the procedure results and/or outcome. ANESTHESIA: Monitored anesthesia care (MAC). ESTIMATED BLOOD LOSS: 5 mL. IV FLUIDS: 5 mL. HEPARIN: None. COMPLICATIONS: None. DRAINS: None. SPECIMENS: None. IMPLANTS: None. WOUND DESCRIPTION: The hematoma cavity measures approximately 20 cm in length x 18 cm in width, and is approximately 5 cm in depth. PROCEDURE: The patient was taken to the operating room, placed supine on the operating room table and the right lower extremity was prepped and draped in a standard surgical fashion. A time out was then conducted by myself and the team members in the room confirming the correct patient, procedure and laterality. The previous VAC dressing was then removed and the hematoma cavity was explored through the 3 cm incision previously made with removal of some old fluid and old blood remaining within the cavity. There was also some non-healthy skin edges which were excised using a pickup and scalpel, and there was some old hematoma within the cavity as well as some nonviable muscle and subcutaneous tissue, which was sharply debrided down to healthy bleeding tissue. The wound was copiously irrigated after which the VAC dressing was replaced. All instrument, sponge, needle counts were correct at the end of the case. There were no complications. Dr. Melissa was present for and directed the entire case. The patient was transferred to the recovery room and subsequently to the floor in stable condition. A phone call was placed to Aurea Smith describing the procedure results and findings, with all her questions being answered.
== END 2018-07-02 12:00 | disposition home health service (06) | DRG 629 ==
LOC: EDBD 12:55 → M ED 12:55 → EEVIPCON 23:19 → M ED INP 23:19 → M ICU 06-11 00:40 → M PCU 06-14 06:08 → M MSPAV 06-16 20:32
PROVIDERS: ADMIT Internal Medicine; ATTEND Hospitalist
PROC: 30233N1 Transfusion of Nonautologous Red Blood Cells into Peripheral Vein, Percutaneous Approach (ICD-10-PCS; 2018-06-11)
PROC: 06L03DZ Occlusion of Inferior Vena Cava with Intraluminal Device, Percutaneous Approach (ICD-10-PCS; principal; 2018-06-12)
PROC: 0JCL0ZZ Extirpation of Matter from Right Upper Leg Subcutaneous Tissue and Fascia, Open Approach (ICD-10-PCS; 2018-06-20)
PROC: 0KBQ0ZZ Excision of Right Upper Leg Muscle, Open Approach (ICD-10-PCS; 2018-06-27)
DX: E11.10 Type 2 diabetes mellitus with ketoacidosis without coma (principal); D62 Acute posthemorrhagic anemia; N18.4 Chronic kidney disease, stage 4 (severe); N39.0 Urinary tract infection, site not specified; I50.32 Chronic diastolic (congestive) heart failure; I13.0 Hypertensive heart and chronic kidney disease with heart failure and stage 1 through stage 4 chronic kidney disease, or unspecified chronic kidney disease; E87.2 Acidosis; I82.431 Acute embolism and thrombosis of right popliteal vein; I82.411 Acute embolism and thrombosis of right femoral vein; N17.9 Acute kidney failure, unspecified; L03.115 Cellulitis of right lower limb; F32.9 Major depressive disorder, single episode, unspecified; K21.9 Gastro-esophageal reflux disease without esophagitis; D72.829 Elevated white blood cell count, unspecified; F79 Unspecified intellectual disabilities; I25.10 Atherosclerotic heart disease of native coronary artery without angina pectoris; I25.2 Old myocardial infarction; Z95.2 Presence of prosthetic heart valve; K59.00 Constipation, unspecified; M79.81 Nontraumatic hematoma of soft tissue; Z85.51 Personal history of malignant neoplasm of bladder; Z85.46 Personal history of malignant neoplasm of prostate; E87.5 Hyperkalemia; E11.649 Type 2 diabetes mellitus with hypoglycemia without coma; Z91.040 Latex allergy status; Z88.8 Allergy status to other drugs, medicaments and biological substances

== ENCOUNTER 2018-07-03 02:26 | Emergency (ER) | payer MEDICARE, MEDICAID ==
[~2018-07-03] VITALS: Ht 167.6 cm; Wt 68.2 kg
[~2018-07-03 02:26] MED LIST changes: +ALCOPAD17 TOP; +ASCO25TA PO; +BLOOKIT21 XX; +ENOX40IN3 SC; +FERR1TAB8 PO; +GLIM2TAB PO; +GLUC1TES2 XX; +INSU1MIS20 SC; +LANC30MI XX; +PEN1MIS21 SC
[2018-07-03] MEDS ORDERED: ONDANSETRON 4 MG ORAL DISINTEGRATING TAB (Q0162 PER 1MG) PO ONE (03:15)
[2018-07-03 04:30] VITALS: BP 112/69
[2018-07-04] MEDS ORDERED: SENN8.6T54 PO (11:36)
[2018-07-04] MEDS ORDERED: AUGM875T28 PO (11:36)
[2018-07-04] MEDS ORDERED: GLIM4TAB PO (11:36)
[2018-07-04] MEDS ORDERED: ASCO250T PO (11:36)
[2018-07-04] MEDS ORDERED: FERR1TAB8 PO (11:36)
[2018-07-04] MEDS ORDERED: INSUDET SC (11:36)
== END 2018-07-03 05:19 | disposition home or self-care (01) ==
LOC: EDBD 02:26 → M ED 02:26
DX: R42 Dizziness and giddiness (principal); F17.210 Nicotine dependence, cigarettes, uncomplicated

== ENCOUNTER 2018-07-04 10:21 | Inpatient (IN) | payer MEDICARE, MEDICAID ==
[~2018-07-04] VITALS: Ht 167.6 cm; Wt 69.0 kg
[2018-07-04] MEDS ORDERED: NS 1,000 ML IV SCH (11:22)
[2018-07-04] MEDS ORDERED: NS 500 ML IV ONE ×2 (11:30→15:00)
[2018-07-04] MEDS ORDERED: AUGM875T28 PO (11:36)
[2018-07-04] MEDS ORDERED: FERR1TAB8 PO (11:36)
[2018-07-04] MEDS ORDERED: GLIM4TAB PO (11:36)
[2018-07-04] MEDS ORDERED: SENN8.6T54 PO (11:36)
[2018-07-04] MEDS ORDERED: INSUDET SC (11:36)
[2018-07-04] MEDS ORDERED: ASCO250T PO (11:36)
[2018-07-04 11:51] LABS: BASO # 0.1 10^3/uL (0.0-0.2); BASO % 0.5 % (0.0-1.0); EOS # 0.1 10^3/uL (0.0-0.50); EOS % 0.9 % (0.0-3.0); HEMATOCRIT 33.9 % (42.0-52.0); HEMOGLOBIN 11.1 g/dl (13.5-17.5); LYMPH # 0.8 10^3/uL (1.5-4.5); MEAN CORPUSCULAR HEMOGLOBIN 31.5 pg (27.0-33.0); MEAN CORPUSCULAR HGB CONC 32.7 g/dl (32.0-36.5); MEAN CORPUSCULAR VOLUME 96.3 fl (80.0-96.0); MONO # 1.2 10^3/uL (0.0-0.8); MONO % 8.8 % (0.0-5.0); NEUTROPHILS # 11.5 10^3/uL (1.8-7.7); NEUTROPHILS % 82.9 % (36.0-66.0); PLATELET COUNT, AUTOMATED 274 10^3/uL (150-450); RED BLOOD COUNT 3.52 10^6/uL (4.30-6.10); WHITE BLOOD COUNT 13.9 10^3/uL (4.0-10.0)
[2018-07-04 12:05] LABS: ALBUMIN 2.9 GM/DL (3.2-5.2); ALT/SGPT 10 U/L (12-78); BILIRUBIN,DIRECT 0.1 MG/DL (0.0-0.2); BILIRUBIN,TOTAL 0.5 MG/DL (0.2-1.0); BLOOD UREA NITROGEN 44 MG/DL (7-18); CALCIUM LEVEL 9.5 MG/DL (8.8-10.2); CARBON DIOXIDE LEVEL 24 MEQ/L (21-32); CHLORIDE LEVEL 98 MEQ/L (98-107); CPK CREATINE PHOSPHOKINASE 32 U/L (39-308); CREATININE FOR GFR 1.68 MG/DL (0.70-1.30); GLOMERULAR FILTRATION RATE 41.5 (>35); GLUCOSE, FASTING 270 MG/DL (70-100); LIPASE 579 U/L (73-393); MB/CK RELATIVE INDEX 9.38 (< OR =4); POTASSIUM SERUM 4.8 MEQ/L (3.5-5.1); SODIUM LEVEL 132 MEQ/L (136-145); TOTAL PROTEIN 6.8 GM/DL (6.4-8.2); TROPONIN I < 0.02 NG/ML (< 0.10)
[2018-07-04 12:06] LABS: INR 1.01; PROTHROMBIN TIME 13.4 SECONDS (12.1-14.4)
--- NOTE | 2018-07-04 15:09 | REP ---
CT abdomen and pelvis without IV or oral contrast: History: Vomiting. The patient gives a history of prostate and bladder carcinoma with cystectomy and urostomy and prostatectomy. Comparison CT study: June 11, 2018. March 29, 2017 prior study is also reviewed. CT findings: Preliminary electrical development engineer view demonstrates a large amount of formed stool dilating the right colon and rectum. There is a large amount of formed stool in the distal transverse colon as well. A vena cava filter and right upper quadrant clips are noted. Axial CT images demonstrate granulomatous calcification and some bibasilar fibrosis in the lung bases. No pleural effusion is seen. There are multiple hepatic cysts again noted. There is a large sliding type hiatal hernia again noted. Post cholecystectomy clips are noted. No adrenal mass lesion is seen on either side. There are some adrenal calcifications on the left, unchanged. No pancreatic mass lesion is observed. Vena cava filter is seen in place. There is mild to moderate hydronephrosis on the left. This is unchanged from the comparison study with hydroureter, apparently related to urinary diversion procedure. The right renal pelvis and ureter are somewhat dilated as well, unchanged. There is formed stool filling and distending the entire colon including the rectum, which is somewhat dilated. The cecum is distended with formed stool to a 9.6 cm transverse dimension. There is a left inguinal hernia containing unobstructed loop of small intestine. There is evidence of soft tissue fullness in the right pelvic sidewall adjacent to some surgical clips. 4.6 cm in greatest diameter. This is new when compared with the March 2017 study and is suggestive of progressive malignant adenopathy. The urinary bladder and prostate are surgically absent. No evidence of free intraperitoneal air or abnormal fluid collection. Impression: 1. Constipation fecal impaction pattern with formed stool filling and distending the entire colon. 2. Status post cystectomy and prostatectomy. 3. Evidence of recurrent right pelvic adenopathy disease 4.5 cm in diameter. 4. Left inguinal hernia transmitting a nonobstructed small bowel loop. 5. Urinary diversion ileostomy with mild stable bilateral hydronephrosis. 6. Hepatic cysts and hiatal hernia. Electronically Signed by Antonio Brooks MD 07/04/2018 05:23 P
[2018-07-04] MEDS ORDERED: DEXTROSE 50% 50 ML SYRINGE IV PRN ×2 (19:45→23:45)
[2018-07-04] MEDS ORDERED: GLUCAGON FOR INJ 1 MG VIAL (J1610) SC PRN ×2 (19:45→23:45)
[2018-07-04] MEDS ORDERED: GLUCOSE 4 GM CHEW TABLET PO PRN ×2 (19:45→23:45)
[2018-07-04] MEDS ORDERED: ONDANSETRON 4MG/2ML VIAL (J2405) IV PRN (19:45)
[2018-07-04] MEDS: NS 1,000 ML IV SCH (20:30)
--- NOTE | 2018-07-04 20:59 | HPE ---
DATE OF ADMISSION: 07/04/2018 PRIMARY CARE PROVIDER: Dr. Marcelino ATTENDING PHYSICIAN: Dr. Currie PRODUCTION ASSOCIATE: Dr. Chicho Cabrera CHIEF COMPLAINT: Nausea, vomiting, and no bowel movement for the last 4 days. HISTORY OF PRESENT ILLNESS: The patient is an 83-year-old white male with a history of severe mental retardation, [facility] ([facility]) resident, who presented to the hospital with nausea, vomiting, and no bowel movement for 4 days. The history is provided by [facility] staff, as well as by review of the chart. The patient cannot provide any useful information since he has severe mental retardation. Per medical record, the patient was here recently and admitted on 06/10/2018 due to near syncopal episode. On that admission, he was found to have very severe anemia, which was treated with blood transfusion and anticoagulant treatment was discontinued due to bleeding and instead IVC filter was placed. He had infected wound in his right thigh, which was treated with IV antibiotics and discharged with wound VAC. Per [facility] staff, since discharge he has not been good. He has not eaten and has not had any bowel movements and he has thrown up several times. He was sent back here yesterday and discharged from the emergency room. Due to persistent nausea and vomiting, cannot keep anything down, so he was sent back here again today. In the emergency room, he had a CT of the abdomen and pelvis done, which demonstrated severe constipation, but no evidence of obstruction or perforation. He was given enema treatment in the emergency room. Of note, he had a big bowel movement. However, he still could not keep anything down. He threw up when he was trying to eat, so medicine service was called for admission. REVIEW OF SYSTEMS: Not available since he cannot provide any information. PAST MEDICAL HISTORY: 1. Mental retardation. 2. Hypertension. 3. Type 2 diabetes. 4. Chronic kidney disease stage III. 5. Chronic back pain. 6. History of recurrent urinary tract infections. 7. Coronary artery disease status post myocardial infarction. PAST SURGICAL HISTORY: 1. Radical cystectomy and prostatectomy for bladder and prostate cancer. 2. Ileoconduit urinary diversion. SOCIAL HISTORY: No tobacco abuse. No alcohol abuse. No illicit drug use. He is a [facility] resident. He is F[employer]. FAMILY HISTORY: Unknown. ALLERGIES: LATEX and IODINE. MEDICATIONS: Reviewed. PHYSICAL EXAMINATION: VITAL SIGNS: Temperature 97.8, heart rate 90, respiratory rate 16, oxygen saturation 98% on room air, blood pressure is 110/71. GENERAL: He is awake, alert. He is severely demented. He does not answer questions and does not follow any commands. HEENT: Atraumatic. Pupils are equal, round and reactive to light. Extraocular muscles intact. No jaundice. Ears/nose/throat normal. Mucosa dry. Neck with no jugular venous distention (JVD) or bruits. LUNGS: Clear with no wheeze or crackles. HEART: S1, S2 regular. No murmur. ABDOMEN: Soft. Bowel sounds positive. Nontender. EXTREMITIES: Lower extremities with no edema in bilateral lower extremities. He has a wound vac on his right upper thigh area. Skin with no rashes. NEUROLOGIC: Nonfocal. PSYCHIATRIC: Demented. No acute psychosis. DIAGNOSTICS AND LABORATORY STUDIES: Complete blood count (CBC) and differential showed WBC 13.9, hemoglobin and hematocrit 11/30, platelets 274. Sodium 132, potassium 4.8, chloride 98, bicarbonate 24, BUN 24, creatinine 1.6, glucose 270. CT of the abdomen and pelvis showed extensive constipation. No bowel obstruction. No evidence of perforation. IMPRESSION: 1. Severe constipation with N/V and need to rule out bowel obstruction. 2. Type 2 diabetes. 3. Hypertension. 4. Severe mental retardation. 5. Right thigh wound. PLAN: The patient will be admitted to the medical/surgical floor. I will keep him nothing by mouth and we will gently hydrate him with IV normal saline. We will hold his medications. We will put on sliding scale for sugar control. We will start him on oral MiraLAX for severe constipation. Dr. Chicho Cabrera will be consulted tomorrow. [facility]
[2018-07-04] MEDS: LACTULOSE 20 GM/30 ML SYRUP UD PO SCH (21:00)
[2018-07-04 22:34] VITALS: BP 140/67
[2018-07-05] MEDS: HumaLOG INSULIN (NovoLOG) PER UNIT SC SCH ×5 (00:14→21:18)
[2018-07-05] MEDS: NS 1,000 ML IV SCH (05:27)
[2018-07-05 05:49] LABS: BASO # 0.1 10^3/uL (0.0-0.2); BASO % 0.5 % (0.0-1.0); EOS # 0.2 10^3/uL (0.0-0.50); EOS % 1.4 % (0.0-3.0); HEMATOCRIT 26.6 % (42.0-52.0); LYMPH # 0.8 10^3/uL (1.5-4.5); LYMPH % 6.4 % (24.0-44.0); MEAN CORPUSCULAR HEMOGLOBIN 30.9 pg (27.0-33.0); MEAN CORPUSCULAR HGB CONC 32.7 g/dl (32.0-36.5); MEAN CORPUSCULAR VOLUME 94.3 fl (80.0-96.0); MONO # 1.2 10^3/uL (0.0-0.8); MONO % 9.5 % (0.0-5.0); NEUTROPHILS # 10.2 10^3/uL (1.8-7.7); NEUTROPHILS % 81.5 % (36.0-66.0); PLATELET COUNT, AUTOMATED 233 10^3/uL (150-450); RED BLOOD COUNT 2.82 10^6/uL (4.30-6.10); WHITE BLOOD COUNT 12.5 10^3/uL (4.0-10.0)
[2018-07-05 06:00] VITALS: BP 118/57
[2018-07-05 06:00] LABS: HEMOGLOBIN 8.7 g/dl (13.5-17.5)
[2018-07-05 06:06] LABS: CALCIUM LEVEL 8.8 MG/DL (8.8-10.2); CREATININE FOR GFR 1.58 MG/DL (0.70-1.30); GLOMERULAR FILTRATION RATE 44.6 (>35); POTASSIUM SERUM 4.3 MEQ/L (3.5-5.1)
[2018-07-05] MEDS ORDERED: HumaLOG INSULIN (NovoLOG) PER UNIT SC SCH (07:30)
[2018-07-05] MEDS ORDERED: MIRALAX *UNIT DOSE* 17GM PACKET PO SCH (09:00)
--- NOTE | 2018-07-05 10:00 | CR.PDOC ---
General Date of Consultation: Jul 05, 2018 Attending Physician: Nataliya Cabrera Jr Consultation SURGERY CONSULTATION ATTENDING PHYSICIAN: NATALIYA CABRERA JR, MD DICTATING PHYSICIAN: Claudia Malik DO PGY1 REASON FOR CONSULTATION/CHIEF COMPLAINT: Constipation w/ nausea vomiting HISTORY OF PRESENT ILLNESS: Patient is a 83 year old male with mental retardation recently discharged from [facility] on 07/02/2018 for syncopal episode likely secondary to severe anemia who presented to the Emergency room last night with complaint of nausea, vomiting, and constipation. Patient is a poor historian. He is currently a resident at [facility] ([facility]) where staff had noted that since his discharge he has not had any bowel movements. Patient has had decreased oral intake as well as vomiting. He continued to have persistent nausea and vomiting with the inability to keep anything down. Patient did have a CT of the abdomen and pelvis performed in the ER which demonstrated formed stool filling and distending the entire colon including the rectum which was dilated. The cecum was distended with formed stool suggesting a constipation fecal impaction pattern. Patient additionally had evidence of recurrent right pelvic adenopathy after lymph node resection in 2017 for invasive bladder cancer, left inguinal hernia, and a hiatal hernia however, no evidence of obstruction or perforation. The patient had denied abdominal pain. In the ER the patient received two enema treatments each resulting in a bowel movement. The patient continued to develop nausea/vomiting with oral intake and was admitted. Since admittance, the patient has remained NPO. He has not thrown up or reported any nausea. The patient has not had any other bowel movements since the enema in the ER. He currently does not complain of any abdominal pain however, a review of systems is difficult to obtain given the patients degree of mental retardation. ALLERGIES: Please see below. HOME MEDICATIONS: Please see below. PAST MEDICAL HISTORY: 1. Mental Retardation 2. Invasive Bladder Cancer 3. Hypertension 4. Diabetes Mellitus Type 2 5. Chronic Kidney Disease Stage III 6. History of recurrent urinary tract infections 7. Coronary Artery Disease s/p myocardial infarction PAST SURGICAL HISTORY: 1. Robotic assisted radical cystectomy, plus prostatectomy, plus bilateral extended pelvic lymph node dissection 2. Intracorporeal ileoconduit urinary diversion FAMILY HISTORY: UNKNOWN SOCIAL HISTORY: Patient is a non-smoker. He does not drink alcohol or use illicit drugs. He is a resident at [facility] REVIEW OF SYSTEMS: Difficult to obtain due to patients mental retardation PHYSICAL EXAMINATION: VITAL SIGNS: Please see below. GENERAL APPEARANCE: Patient is awake and alert. He does not appear in acute distress. He is lying in bed. He is responsive to some questions but does not readily follow commands RESPIRATORY: Clear to auscultation bilaterally with good respiratory effort. No wheezes, rhonchi, or rales noted CARDIOVASCULAR: Normal S1, S2. Regular rate and rhythm. No clicks, rubs, or murmurs noted ABDOMEN: Abdomen is soft and nondistended. Bowel sounds are present. Nontender to palpation of all four quadrants. No hernias noted while patient was lying flat. Urostomy bag is in place. EXTREMITIES: No edema present PSYCHIATRIC: Patient has MR LABORATORY DATA: Please see below. ASSESSMENT/PLAN: 1. Constipation 2/2 fecal impaction vs obstruction -CT imaging demonstrated severe constipation without obstruction or perforation. Patient received two enemas in the ER last night both resulting in a bowel movement. Patient has remained NPO into this morning without nausea or vomiting. He does not have any pain on palpation of his abdomen -Patients diet was advanced to clear liquids this morning. He was able to tolerate PO without developing nausea or vomiting -Milk of magnesia added to patients bowel regimen -Patient had a large BM after advancing diet to clear liquids and continuing bowel regimen. No need for upper GI series with small bowel follow through at this time. -Surgical intervention not needed at this time. Will sign off as patient is having bowel movements 2. Left inguinal Hernia -Left inguinal hernia was noted on CT imaging. At time of exam no hernia was palpated likely secondary to being reduced due to patients positioning while lying flat. Unlikely that this is the source of an obstruction 3. Recurrent Right pelvic adenopathy -Right pelvic adenopathy was noted on CT. In 2017 patient was diagnosed with bladder cancer resulting in radical cystectomy, prostatectomy, and bilateral lymph node dissection. Vital Signs/I&O Vital Signs Date Time Temp Pulse Resp B/P (MAP) Pulse Ox O2 Delivery O2 Flow Rate FiO2 07/05/18 06:00 97.8 91 17 118/57 (77) 95 Room Air I&O- Last 24 Hours up to 6 AM 07/05/18 06:00 Intake Total 500 ml Output Total 800 ml Balance -300 ml Laboratory Data Labs 24H Laboratory Tests 2 07/04/18 11:34: Prothrombin Time 13.4, Prothromb Time International Ratio 1.01 07/04/18 11:35: Immature Granulocyte % (Auto) 0.9, White Blood Count 13.9H, Red Blood Count 3.52L, Hemoglobin 11.1L, Hematocrit 33.9L, Mean Corpuscular Volume 96.3H, Mean Corpuscular Hemoglobin 31.5, Mean Corpuscular Hemoglobin Concent 32.7, Red Cell Distribution Width 16.4H, Platelet Count 274, Neutrophils (%) (Auto) 82.9H, Lymphocytes (%) (Auto) 6.0L, Monocytes (%) (Auto) 8.8H, Eosinophils (%) (Auto) 0.9, Basophils (%) (Auto) 0.5, Neutrophils # (Auto) 11.5H, Lymphocytes # (Auto) 0.8L, Monocytes # (Auto) 1.2H, Eosinophils # (Auto) 0.1, Basophils # (Auto) 0.1, Nucleated Red Blood Cells % (auto) 0.0, Anion Gap 10, Glomerular Filtration Rate 41.5, Lactic Acid Level 2.4*H, Calcium Level 9.5#, Aspartate Amino Transf (AST/SGOT) 13, Alanine Aminotransferase (ALT/SGPT) 10L, Alkaline Phosphatase 119H, Total Bilirubin 0.5, Direct Bilirubin 0.1, Total Creatine Kinase 32L, Creatine Kinase MB 3.0, Creatine Kinase MB Relative Index 9.38H, Troponin I < 0.02, Total Protein 6.8, Albumin 2.9L, Albumin/Globulin Ratio 0.74L, Lipase 579H 07/04/18 15:49: Lactic Acid Followup at 4 Hours 2.0 07/04/18 21:54: Bedside Glucose (Misc Panel) 223H 07/04/18 23:14: Bedside Glucose (Misc Panel) 258H 07/05/18 05:22: Immature Granulocyte % (Auto) 0.7, White Blood Count 12.5H, Red Blood Count 2.82L, Hemoglobin 8.7#L, Hematocrit 26.6L, Mean Corpuscular Volume 94.3, Mean Corpuscular Hemoglobin 30.9, Mean Corpuscular Hemoglobin Concent 32.7, Red Cell Distribution Width 15.9H, Platelet Count 233, Neutrophils (%) (Auto) 81.5H, Lymphocytes (%) (Auto) 6.4L, Monocytes (%) (Auto) 9.5H, Eosinophils (%) (Auto) 1.4, Basophils (%) (Auto) 0.5, Neutrophils # (Auto) 10.2H, Lymphocytes # (Auto) 0.8L, Monocytes # (Auto) 1.2H, Eosinophils # (Auto) 0.2, Basophils # (Auto) 0.1, Nucleated Red Blood Cells % (auto) 0.0, Anion Gap 7L, Glomerular Filtration Rate 44.6, Blood Urea Nitrogen 45H, Creatinine 1.58H, Sodium Level 139#, Potassium Level 4.3, Chloride Level 107, Carbon Dioxide Level 25, Calcium Level 8.8 07/05/18 05:25: Bedside Glucose [facility]) 92 CBC/BMP Laboratory Tests 07/04/18 11:35 Red Blood Count 3.52 L, Mean Corpuscular Volume 96.3 H, Mean Corpuscular Hemoglobin 31.5, Mean Corpuscular Hemoglobin Concent 32.7, Red Cell Distribution Width 16.4 H, Neutrophils (%) (Auto) 82.9 H, Lymphocytes (%) (Auto) 6.0 L, Monocytes (%) (Auto) 8.8 H, Eosinophils (%) (Auto) 0.9, Basophils (%) (Auto) 0.5, Neutrophils # (Auto) 11.5 H, Lymphocytes # (Auto) 0.8 L, Monocytes # (Auto) 1.2 H, Eosinophils # (Auto) 0.1, Basophils # (Auto) 0.1 07/05/18 05:22 Red Blood Count 2.82 L, Mean Corpuscular Volume 94.3, Mean Corpuscular Hemoglobin 30.9, Mean Corpuscular Hemoglobin Concent 32.7, Red Cell Distribution Width 15.9 H, Neutrophils (%) (Auto) 81.5 H, Lymphocytes (%) (Auto) 6.4 L, Monocytes (%) (Auto) 9.5 H, Eosinophils (%) (Auto) 1.4, Basophils (%) (Auto) 0.5, Neutrophils # (Auto) 10.2 H, Lymphocytes # (Auto) 0.8 L, Monocytes # (Auto) 1.2 H, Eosinophils # (Auto) 0.2, Basophils # (Auto) 0.1, Calcium Level 8.8 Allergies Coded Allergies: Povidone Iodine (Verified Allergy, Intermediate, Hives, 11/02/16) Latex (Verified Adverse Reaction, Intermediate, risk, 11/02/16) Home Medications Scheduled Amoxicillin/Clavulanate Potas (Augmentin 875-125 mg) 1 Tab Tab, 1 TAB PO BID, (Reported) FILLED 07/01 FOR 10 DAYS Ascorbic Acid (Ascorbic Acid) 250 Mg Tab, 250 MG PO BID, (Reported) Calcium/Vitamin D (Oscal 500/200 D-3 500-200 mg-Unit) 1 Tab Tab, 1 TAB PO BID, (Reported) Carbamide Peroxide (Debrox) 6.5 % [place], 1 DROP AU 2XW, (Reported) TUES, SAT AT BEDTIME Docusate Sod/Senna (Senna-Plus 8.6-50 mg) 1 Tab Tab, 1 TAB PO BID, (Reported) Docusate Sodium (Colace) 100 Mg Cap, 100 MG PO BID, (Reported) Ferrous Sulfate (Ferrous Sulfate) 325 Mg Tab, 325 MG PO BID, (Reported) Glimepiride (Glimepiride) 4 Mg Tab, 6 MG PO DAILY, (Reported) Insulin Detemir (Levemir) 1 Units/0.01 Ml Susp, 18 UNITS SC DAILY, (Reported) Lactobacillus Acidophilus (Bacid) 1 Tab Tab, 1 TAB PO BID, (Reported) Omeprazole (Omeprazole) 20 Mg Cap, 20 MG PO QAM, (Reported) Paroxetine Hydrochloride (Paxil) 40 Mg Tab, 40 MG PO QHS, (Reported) give with Paxil 20mg Paroxetine Hydrochloride (Paxil) 20 Mg Tab, 20 MG PO QHS, (Reported) give with Paxil 40mg Polyethylene Glycol (Miralax) 1 Pow Pow, 17 GM PO QAM, (Reported) Pravastatin Sod (Pravastatin Sodium) 40 Mg Tab, 40 MG PO QHS, (Reported) Quetiapine Fumarate (Seroquel Xr) 200 Mg Bettina, 200 MG PO DAILY, (Reported) TAKES @ 1630 Sitagliptin Phosphate (Januvia) 25 Mg Tab, 25 MG PO QHS, (Reported) Scheduled PRN Acetaminophen (Tylenol) 325 Mg Tab, 650 MG PO Q4H PRN for PAIN / FEVER, (Reported) Bisacodyl (Bisacodyl) 10 Mg Sup, 10 MG NC DAILY PRN for CONSTIPATION, (Reported) ON DAY 4 WITHOUT A BM GME ATTESTATION GME ATTESTATION My faculty preceptor for this patient encounter was physically present during the encounter and was fully available. All aspects of the patient interview, examination, medical decision making process, and medical care plan development were reviewed and approved by the faculty preceptor. The faculty preceptor is aware and concurs with the plan as stated in the body of this note and will attest to such by his/her cosignature. CLAUDIA MALIK DO Jul 05, 2018 10:00
[2018-07-05] MEDS: PANTOPRAZOLE 40MG INJ (PROTONIX) (C9113) IV SCH (11:03)
[2018-07-05] MEDS: LACTULOSE 20 GM/30 ML SYRUP UD PO SCH ×2 (11:04→21:23)
[2018-07-05] MEDS: MOM 30ML SUSPENSION UDC PO SCH ×2 (11:04→21:23)
[2018-07-05] MEDS: BISACODYL 10 MG SUPP PR PRN (11:06)
[2018-07-05 12:13] LABS: HEMATOCRIT 27.6 % (42.0-52.0); HEMOGLOBIN 8.8 g/dl (13.5-17.5)
--- NOTE | 2018-07-05 13:06 | IPNPDOC ---
Subjective Date Seen The patient was seen on 07/05/18. Subjective Chief Complaint/HPI Patient seen and examined at the bedside. No acute overnight events noted. The patient's diet has been advanced to clear liquids this morning he denies any acute complaints of nausea, vomiting, or abdominal pain. Objective Physical Examination General Exam: Positive: Cooperative, No Acute Distress ENT Exam: Positive: Atraumatic, Mucous membr. moist/pink Neck Exam: Negative: JVD Chest Exam: Positive: Clear to auscultation, Normal air movement Heart Exam: Positive: Rate Normal, Normal S1, Normal S2 Abdomen Exam: Positive: Soft, Other (+Urostomy); Negative: Tenderness Extremity Exam: Positive: Other (+RLE Wound Vac); Negative: Tenderness Assessment /Plan Plan/VTE VTE Prophylaxis Ordered?: Yes Plan Nausea, Vomiting, and Abdominal Pain 2/2 Severe Constipation s/p enema with large BM Patient denies any abdominal pain this AM Diet advanced to clear liquids Cont Bowel regimen We will cont to monitor Surgery on board, input appreciated Leukocytosis 2/2 Above Cont supportive treatment Diabetes Mellitus Insulin sliding scale Chronic kidney disease stage III Serum creatinine baseline History of coronary artery disease, [place] Cont Statin Hx of RLE Cellulitis with Hematoma s/p Wound Vac Cont Augmentin to complete course of Abx Hx of Bladder and Prostate Cancer s/p Cystectomy, Prostatectomy s/p Urostomy F/U as outpatient Hx of RLE DVT Not on AC 2/2 history of Hematoma s/p IVC Filter placement Depression/anxiety Cont current regimen GERD Cont PPI Hx of Intellectual Disability Resides at [facility] DVT prophylaxis Has IVC Filter Dispo--pending clinical improvement. VS, I&O, 24H, Fishbone Vital Signs/I&O Vital Signs Date Time Temp Pulse Resp B/P (MAP) Pulse Ox O2 Delivery O2 Flow Rate FiO2 07/05/18 06:00 97.8 91 17 118/57 (77) 95 Room Air I&O- Last 24 Hours up to 6 AM 07/05/18 06:00 Intake Total 500 ml Output Total 800 ml Balance -300 ml Laboratory Data 24H LABS Laboratory Tests 2 07/04/18 15:49: Lactic Acid Followup at 4 Hours 2.0 07/04/18 21:54: Bedside Glucose (Misc Panel) 223H 07/04/18 23:14: Bedside Glucose (Misc Panel) 258H 07/05/18 05:22: Immature Granulocyte % (Auto) 0.7, White Blood Count 12.5H, Red Blood Count 2.82L, Hemoglobin 8.7#L, Hematocrit 26.6L, Mean Corpuscular Volume 94.3, Mean Corpuscular Hemoglobin 30.9, Mean Corpuscular Hemoglobin Concent 32.7, Red Cell Distribution Width 15.9H, Platelet Count 233, Neutrophils (%) (Auto) 81.5H, Lymphocytes (%) (Auto) 6.4L, Monocytes (%) (Auto) 9.5H, Eosinophils (%) (Auto) 1.4, Basophils (%) (Auto) 0.5, Neutrophils # (Auto) 10.2H, Lymphocytes # (Auto) 0.8L, Monocytes # (Auto) 1.2H, Eosinophils # (Auto) 0.2, Basophils # (Auto) 0.1, Nucleated Red Blood Cells % (auto) 0.0, Anion Gap 7L, Glomerular Filtration Rate 44.6, Blood Urea Nitrogen 45H, Creatinine 1.58H, Sodium Level 139#, Potassium Level 4.3, Chloride Level 107, Carbon Dioxide Level 25, Calcium Level 8.8 07/05/18 05:25: Bedside Glucose (Misc Panel) 92 07/05/18 11:59: Bedside Glucose (Misc Panel) 230H CBC/BMP Laboratory Tests 07/05/18 05:22 Red Blood Count 2.82 L, Mean Corpuscular Volume 94.3, Mean Corpuscular Hemoglobin 30.9, Mean Corpuscular Hemoglobin Concent 32.7, Red Cell Distribution Width 15.9 H, Neutrophils (%) (Auto) 81.5 H, Lymphocytes (%) (Auto) 6.4 L, Monocytes (%) (Auto) 9.5 H, Eosinophils (%) (Auto) 1.4, Basophils (%) (Auto) 0.5, Neutrophils # (Auto) 10.2 H, Lymphocytes # (Auto) 0.8 L, Monocytes # (Auto) 1.2 H, Eosinophils # (Auto) 0.2, Basophils # (Auto) 0.1, Calcium Level 8.8 07/05/18 11:59 MARY RIVERA MD Jul 05, 2018 13:06
[2018-07-05 14:00] VITALS: BP 117/58
[2018-07-05] MEDS: QUEtiapine FUMARATE **XR** 200MG TABLET PO SCH (16:58)
[2018-07-05 20:00] VITALS: BP 118/52
[2018-07-05] MEDS ORDERED: PARoxetine 20 MG TAB PO SCH (21:00)
[2018-07-05] MEDS: PARoxetine 20 MG TAB PO SCH (21:24)
[2018-07-05] MEDS: PRAVASTATIN 20 MG TAB PO SCH (21:28)
[2018-07-06 06:00] VITALS: BP 101/55
[2018-07-06 06:35] LABS: BASO % 0.4 % (0.0-1.0); CALCIUM LEVEL 7.7 MG/DL (8.8-10.2); CREATININE FOR GFR 1.63 MG/DL (0.70-1.30); EOS # 0.3 10^3/uL (0.0-0.50); EOS % 2.8 % (0.0-3.0); HEMATOCRIT 24.9 % (42.0-52.0); LYMPH # 0.7 10^3/uL (1.5-4.5); LYMPH % 7.4 % (24.0-44.0); MEAN CORPUSCULAR HEMOGLOBIN 31.9 pg (27.0-33.0); MEAN CORPUSCULAR HGB CONC 32.1 g/dl (32.0-36.5); MEAN CORPUSCULAR VOLUME 99.2 fl (80.0-96.0); MONO # 0.8 10^3/uL (0.0-0.8); MONO % 8.6 % (0.0-5.0); NEUTROPHILS # 7.4 10^3/uL (1.8-7.7); PLATELET COUNT, AUTOMATED 191 10^3/uL (150-450); POTASSIUM SERUM 4.2 MEQ/L (3.5-5.1); RED BLOOD COUNT 2.51 10^6/uL (4.30-6.10); WHITE BLOOD COUNT 9.2 10^3/uL (4.0-10.0)
[2018-07-06] MEDS: HumaLOG INSULIN (NovoLOG) PER UNIT SC SCH ×4 (07:30→21:31)
[2018-07-06] MEDS: LACTULOSE 20 GM/30 ML SYRUP UD PO SCH ×2 (09:34→21:31)
[2018-07-06] MEDS: PANTOPRAZOLE 40MG INJ (PROTONIX) (C9113) IV SCH (09:34)
[2018-07-06] MEDS: MOM 30ML SUSPENSION UDC PO SCH ×2 (09:34→21:31)
[2018-07-06 12:24] LABS: HEMOGLOBIN 7.9 g/dl (13.5-17.5)
[2018-07-06 14:00] VITALS: BP 125/60
--- NOTE | 2018-07-06 14:43 | IPNPDOC ---
Subjective Date Seen The patient was seen on 07/06/18. Subjective Chief Complaint/HPI Patient seen and examined at the bedside. His hemoglobin was noted to be 7.9 this morning. Patient with minimal serosanguineous output from right lower extremity hematoma with wound VAC attachment. No other overt sources of bleeding noted. We will transfuse the patient 1 unit of packed red blood cells after obtaining consent from the patient's healthcare proxy/guardian Aurea Smith. Objective Physical Examination General Exam: Positive: Alert, Cooperative, No Acute Distress ENT Exam: Positive: Atraumatic, Mucous membr. moist/pink Neck Exam: Negative: JVD Chest Exam: Positive: Clear to auscultation, Normal air movement Heart Exam: Positive: Rate Normal, Normal S1, Normal S2 Abdomen Exam: Positive: Soft, Other (+Urostomy); Negative: Tenderness Extremity Exam: Positive: Other (+RLE Wound Vac with minimal output.); Negative: Tenderness Assessment /Plan Plan/VTE VTE Prophylaxis Ordered?: Yes Plan Nausea, Vomiting, and Abdominal Pain 2/2 Severe Constipation s/p enema with large BM in the ER Patient tolerating a liquid diet w/o any acute complaints--Diet advanced to Pureed Patient denies any abdominal pain this AM Cont Bowel regimen We will cont to monitor Surgery on board, input appreciated Macrocytic Anemia Hgb noted to be 7.9 this AM--likely factorial component of hemodilution from IVF hydration, underlying CKD, and minimal blood loss via wound vac from RLE hematoma We will transfuse the patient 1 Unit of PRBC's and monitor the patient Leukocytosis 2/2 Above, resolved Diabetes Mellitus Insulin sliding scale Chronic kidney disease stage III Serum creatinine baseline History of coronary artery disease, [place] Cont Statin Hx of RLE Cellulitis with Hematoma s/p Wound Vac Cont Augmentin to complete course of Abx Hx of Bladder and Prostate Cancer s/p Cystectomy, Prostatectomy s/p Urostomy F/U as outpatient Hx of RLE DVT Not on AC 2/2 history of Hematoma s/p IVC Filter placement Depression/anxiety Cont current regimen GERD Cont PPI Hx of Intellectual Disability Resides at [facility] DVT prophylaxis Has IVC Filter Dispo--pending clinical improvement. VS, I&O, 24H, Fishbone Vital Signs/I&O Vital Signs Date Time Temp Pulse Resp B/P (MAP) Pulse Ox O2 Delivery O2 Flow Rate FiO2 07/06/18 06:00 98.1 78 18 101/55 (70) 98 Room Air I&O- Last 24 Hours up to 6 AM 07/06/18 06:00 Intake Total 1370 ml Output Total 1400 ml Balance -30 ml Laboratory Data 24H LABS Laboratory Tests 2 07/05/18 16:38: Bedside Glucose (Misc Panel) 128H 07/05/18 20:33: Bedside Glucose (Misc Panel) 136H 07/06/18 00:55: Bedside Glucose (Misc Panel) 144H 07/06/18 05:43: Immature Granulocyte % (Auto) 0.8, White Blood Count 9.2, Red Blood Count 2.51L, Hemoglobin 8.0L, Hematocrit 24.9L, Mean Corpuscular Volume 99.2H, Mean Corpuscular Hemoglobin 31.9, Mean Corpuscular Hemoglobin Concent 32.1, Red Cell Distribution Width 16.6H, Platelet Count 191, Neutrophils (%) (Auto) 80.0H, Lymphocytes (%) (Auto) 7.4L, Monocytes (%) (Auto) 8.6H, Eosinophils (%) (Auto) 2.8, Basophils (%) (Auto) 0.4, Neutrophils # (Auto) 7.4, Lymphocytes # (Auto) 0.7L, Monocytes # (Auto) 0.8, Eosinophils # (Auto) 0.3, Basophils # (Auto) 0.0, Nucleated Red Blood Cells % (auto) 0.0, Anion Gap 6L, Glomerular Filtration Rate 43.0, Blood Urea Nitrogen 32H, Creatinine 1.63H, Sodium Level 139, Potassium Level 4.2, Chloride Level 107, Carbon Dioxide Level 26, Calcium Level 7.7L 07/06/18 12:52: Bedside Glucose (Misc Panel) 214H CBC/BMP Laboratory Tests 07/06/18 05:43 Red Blood Count 2.51 L, Mean Corpuscular Volume 99.2 H, Mean Corpuscular Hemoglobin 31.9, Mean Corpuscular Hemoglobin Concent 32.1, Red Cell Distribution Width 16.6 H, Neutrophils (%) (Auto) 80.0 H, Lymphocytes (%) (Auto) 7.4 L, Monocytes (%) (Auto) 8.6 H, Eosinophils (%) (Auto) 2.8, Basophils (%) (Auto) 0.4, Neutrophils # (Auto) 7.4, Lymphocytes # (Auto) 0.7 L, Monocytes # (Auto) 0.8, Eosinophils # (Auto) 0.3, Basophils # (Auto) 0.0, Calcium Level 7.7 L 07/06/18 11:57 MARY RIVERA MD Jul 06, 2018 14:43
[2018-07-06 14:54] VITALS: BP 114/58
[2018-07-06] MEDS: QUEtiapine FUMARATE **XR** 200MG TABLET PO SCH (18:12)
[2018-07-06] MEDS: PRAVASTATIN 20 MG TAB PO SCH (21:30)
[2018-07-06] MEDS: PARoxetine 20 MG TAB PO SCH (21:30)
[2018-07-06] MEDS: AUGMENTIN 875 MG TAB PO SCH (21:30)
[2018-07-06 22:00] VITALS: BP 91/52
[2018-07-07 06:00] VITALS: BP 118/69
[2018-07-07] MEDS: HumaLOG INSULIN (NovoLOG) PER UNIT SC SCH ×4 (07:30→21:00)
[2018-07-07] MEDS: AUGMENTIN 875 MG TAB PO SCH ×2 (08:24→20:07)
[2018-07-07] MEDS: LACTULOSE 20 GM/30 ML SYRUP UD PO SCH ×2 (08:24→20:07)
[2018-07-07] MEDS: MOM 30ML SUSPENSION UDC PO SCH ×2 (08:24→20:07)
[2018-07-07] MEDS: PANTOPRAZOLE 40MG TAB (PROTONIX) PO SCH (09:00)
[2018-07-07 09:04] LABS: HEMOGLOBIN 9.3 g/dl (13.5-17.5); MEAN CORPUSCULAR HEMOGLOBIN 30.6 pg (27.0-33.0); MEAN CORPUSCULAR HGB CONC 32.1 g/dl (32.0-36.5); MEAN CORPUSCULAR VOLUME 95.4 fl (80.0-96.0); PLATELET COUNT, AUTOMATED 193 10^3/uL (150-450); RED BLOOD COUNT 3.04 10^6/uL (4.30-6.10); WHITE BLOOD COUNT 6.5 10^3/uL (4.0-10.0)
[2018-07-07 09:23] LABS: CALCIUM LEVEL 7.5 MG/DL (8.8-10.2); CREATININE FOR GFR 1.58 MG/DL (0.70-1.30); GLOMERULAR FILTRATION RATE 44.6 (>35); MAGNESIUM LEVEL 2.2 MG/DL (1.8-2.4); POTASSIUM SERUM 4.2 MEQ/L (3.5-5.1)
--- NOTE | 2018-07-07 11:58 | IPNPDOC ---
Subjective Date Seen The patient was seen on 07/07/18. Subjective Chief Complaint/HPI Patient seen and examined at the bedside. His hemoglobin has come up appropriately after receiving 1 unit of packed red blood cell transfusion ye sterday. No other acute overnight events noted. Objective Physical Examination General Exam: Positive: Alert, Cooperative, No Acute Distress ENT Exam: Positive: Atraumatic, Mucous membr. moist/pink Neck Exam: Negative: JVD Chest Exam: Positive: Clear to auscultation, Normal air movement Heart Exam: Positive: Rate Normal, Normal S1, Normal S2 Abdomen Exam: Positive: Soft, Other (+Urostomy); Negative: Tenderness Extremity Exam: Positive: Other (+RLE Wound Vac with minimal output.); Negative: Tenderness Assessment /Plan Plan/VTE VTE Prophylaxis Ordered?: Yes Plan Nausea, Vomiting, and Abdominal Pain 2/2 Severe Constipation s/p enema with large BM in the ER Patient tolerating a Pureed diet Patient denies any abdominal pain this AM Cont Bowel regimen We will cont to monitor Surgery on board, input appreciated Macrocytic Anemia Hgb noted to be 7.9 yesterday, transfused the patient 1 Unit of PRBC and his hgb has responded appropriately No overt bleeding noted We will cont to monitor H&H Leukocytosis 2/2 Above, resolved Diabetes Mellitus Insulin sliding scale Chronic kidney disease stage III Serum creatinine baseline History of coronary artery disease, [place] Cont Statin Hx of RLE Cellulitis with Hematoma s/p Wound Vac Cont Augmentin to complete course of Abx Hx of Bladder and Prostate Cancer s/p Cystectomy, Prostatectomy s/p Urostomy F/U as outpatient Hx of RLE DVT Not on AC 2/2 history of Hematoma s/p IVC Filter placement Depression/anxiety Cont current regimen GERD Cont PPI Hx of Intellectual Disability Resides at [facility] DVT prophylaxis Has IVC Filter Dispo--pending clinical improvement. VS, I&O, 24H, Fishbone Vital Signs/I&O Vital Signs Date Time Temp Pulse Resp B/P (MAP) Pulse Ox O2 Delivery O2 Flow Rate FiO2 07/07/18 06:00 97.9 75 18 118/69 (85) 96 Room Air I&O- Last 24 Hours up to 6 AM 07/07/18 06:00 Intake Total 2080 ml Output Total 290 ml Balance 1790 ml Laboratory Data 24H LABS Laboratory Tests 2 07/06/18 12:52: Bedside Glucose (Misc Panel) 214H 07/06/18 21:31: Bedside Glucose (Misc Panel) 114H 07/07/18 07:16: Bedside Glucose (Misc Panel) 177H 07/07/18 08:49: Nucleated Red Blood Cells % (auto) 0.0, Anion Gap 7L, Glomerular Filtration Rate 44.6, Blood Urea Nitrogen 23H, Creatinine 1.58H, Sodium Level 137, Potassium Level 4.2, Chloride Level 104, Carbon Dioxide Level 26, Calcium Level 7.5L, Magnesium Level 2.2 CBC/BMP Laboratory Tests 07/06/18 11:57 07/07/18 08:49 Red Blood Count 3.04 L, Mean Corpuscular Volume 95.4, Mean Corpuscular Hemoglobin 30.6, Mean Corpuscular Hemoglobin Concent 32.1, Red Cell Distribution Width 16.3 H, Calcium Level 7.5 L MARY RIVERA MD Jul 07, 2018 11:58
[2018-07-07 14:00] VITALS: BP 134/63
[2018-07-07] MEDS: QUEtiapine FUMARATE **XR** 200MG TABLET PO SCH (17:51)
[2018-07-07] MEDS: PRAVASTATIN 20 MG TAB PO SCH (20:07)
[2018-07-07] MEDS: PARoxetine 20 MG TAB PO SCH (20:07)
[2018-07-07 22:00] VITALS: BP 119/64
[2018-07-08 06:00] VITALS: BP 101/51
[2018-07-08 06:16] LABS: HEMATOCRIT 28.9 % (42.0-52.0); HEMOGLOBIN 9.2 g/dl (13.5-17.5); MEAN CORPUSCULAR HGB CONC 31.8 g/dl (32.0-36.5); MEAN CORPUSCULAR VOLUME 97.3 fl (80.0-96.0); PLATELET COUNT, AUTOMATED 208 10^3/uL (150-450); RED BLOOD COUNT 2.97 10^6/uL (4.30-6.10); WHITE BLOOD COUNT 6.5 10^3/uL (4.0-10.0)
[2018-07-08 06:34] LABS: CALCIUM LEVEL 7.8 MG/DL (8.8-10.2); CREATININE FOR GFR 1.57 MG/DL (0.70-1.30); GLOMERULAR FILTRATION RATE 44.9 (>35); MAGNESIUM LEVEL 2.3 MG/DL (1.8-2.4); POTASSIUM SERUM 4.3 MEQ/L (3.5-5.1)
[2018-07-08] MEDS: HumaLOG INSULIN (NovoLOG) PER UNIT SC SCH ×4 (07:30→21:00)
[2018-07-08] MEDS: LACTULOSE 20 GM/30 ML SYRUP UD PO SCH ×2 (08:34→20:27)
[2018-07-08] MEDS: SENNA 8.6 MG TAB (SENOKOT) PO SCH ×2 (08:34→20:27)
[2018-07-08] MEDS: PANTOPRAZOLE 40MG TAB (PROTONIX) PO SCH (08:34)
[2018-07-08] MEDS: MOM 30ML SUSPENSION UDC PO SCH ×2 (08:34→20:27)
[2018-07-08] MEDS: AUGMENTIN 875 MG TAB PO SCH ×2 (08:34→20:27)
--- NOTE | 2018-07-08 10:12 | IPNPDOC ---
Subjective Date Seen The patient was seen on 07/08/18. Subjective Chief Complaint/HPI Patient seen and examined at the bedside. The patient did not have a bowel movement over the weekend. He denies any abdominal pain, and has been tolerating a by mouth diet. We will continue his current bowel regimen. The patient is scheduled to work with physical therapy today. Objective Physical Examination General Exam: Positive: Alert, Cooperative, No Acute Distress ENT Exam: Positive: Atraumatic, Mucous membr. moist/pink Neck Exam: Negative: JVD Chest Exam: Positive: Clear to auscultation, Normal air movement Heart Exam: Positive: Rate Normal, Normal S1, Normal S2 Abdomen Exam: Positive: Soft, Other (+Urostomy); Negative: Tenderness Extremity Exam: Positive: Other (+RLE Wound Vac with minimal output.); Negative: Tenderness Assessment /Plan Plan/VTE VTE Prophylaxis Ordered?: Yes Plan Nausea, Vomiting, and Abdominal Pain 2/2 Severe Constipation s/p enema with large BM in the ER on 07/04, with another BM recorded on 07/05--However the patient has not had a BM over the weekend Patient tolerating a Pureed diet Patient denies any abdominal pain this AM Cont Bowel regimen We will cont to monitor Surgery on board, input appreciated Macrocytic Anemia Hgb noted to be 7.9 yesterday, transfused the patient 1 Unit of PRBC and his hgb has responded appropriately No overt bleeding noted We will cont to monitor H&H Leukocytosis 2/2 Above, resolved Diabetes Mellitus Insulin sliding scale Chronic kidney disease stage III Serum creatinine baseline History of coronary artery disease, RI Cont Statin Hx of RLE Cellulitis with Hematoma s/p Wound Vac Cont Augmentin to complete course of Abx Hx of Bladder and Prostate Cancer s/p Cystectomy, Prostatectomy s/p Urostomy F/U as outpatient Hx of RLE DVT Not on AC 2/2 history of Hematoma s/p IVC Filter placement Depression/anxiety Cont current regimen GERD Cont PPI Hx of Intellectual Disability Resides at [facility] DVT prophylaxis Has IVC Filter Dispo--pending clinical improvement. We will await for the patient to have another BM, and clear PT prior to D/C back to [facility]. Discussed plan of care with the patient's personal carer at [facility] today at the bedside. VS, I&O, 24H, Fishbone Vital Signs/I&O Vital Signs Date Time Temp Pulse Resp B/P (MAP) Pulse Ox O2 Delivery O2 Flow Rate FiO2 07/08/18 06:00 98.0 79 18 101/51 (68) 97 Room Air I&O- Last 24 Hours up to 6 AM 07/08/18 05:59 Intake Total 900 ml Output Total 1050 ml Balance -150 ml Laboratory Data 24H LABS Laboratory Tests 2 07/07/18 12:17: Bedside Glucose (Misc Panel) 215H 07/07/18 17:44: Bedside Glucose (Misc Panel) 169H 07/07/18 18:06: Bedside Glucose (Misc Panel) 204H 07/07/18 20:28: Bedside Glucose (Misc Panel) 200H 07/08/18 05:26: Nucleated Red Blood Cells % (auto) 0.0, Anion Gap 6L, Glomerular Filtration Rate 44.9, Blood Urea Nitrogen 22H, Creatinine 1.57H, Sodium Level 137, Potassium Level 4.3, Chloride Level 103, Carbon Dioxide Level 28, Calcium Level 7.8L, Magnesium Level 2.3 CBC/BMP Laboratory Tests 07/08/18 05:26 Red Blood Count 2.97 L, Mean Corpuscular Volume 97.3 H, Mean Corpuscular Hemoglobin 31.0, Mean Corpuscular Hemoglobin Concent 31.8 L, Red Cell Distribution Width 15.9 H, Calcium Level 7.8 L MARY RIVERA MD Jul 08, 2018 10:12
[2018-07-08] MEDS: MIRALAX *UNIT DOSE* 17GM PACKET PO PRN (12:40)
[2018-07-08 14:00] VITALS: BP 137/67
[2018-07-08] MEDS: BISACODYL 10 MG SUPP PR PRN (18:21)
[2018-07-08] MEDS: QUEtiapine FUMARATE **XR** 200MG TABLET PO SCH (18:21)
[2018-07-08] MEDS: PARoxetine 20 MG TAB PO SCH (20:27)
[2018-07-08] MEDS: PRAVASTATIN 20 MG TAB PO SCH (20:27)
[2018-07-09 06:00] VITALS: BP 133/63
[2018-07-09 06:12] LABS: HEMATOCRIT 28.6 % (42.0-52.0); HEMOGLOBIN 9.3 g/dl (13.5-17.5); MEAN CORPUSCULAR HEMOGLOBIN 30.7 pg (27.0-33.0); MEAN CORPUSCULAR HGB CONC 32.5 g/dl (32.0-36.5); MEAN CORPUSCULAR VOLUME 94.4 fl (80.0-96.0); PLATELET COUNT, AUTOMATED 215 10^3/uL (150-450); RED BLOOD COUNT 3.03 10^6/uL (4.30-6.10); WHITE BLOOD COUNT 5.9 10^3/uL (4.0-10.0)
[2018-07-09 06:38] LABS: CALCIUM LEVEL 7.7 MG/DL (8.8-10.2); CREATININE FOR GFR 1.63 MG/DL (0.70-1.30); MAGNESIUM LEVEL 2.6 MG/DL (1.8-2.4); POTASSIUM SERUM 4.6 MEQ/L (3.5-5.1)
[2018-07-09] MEDS: AUGMENTIN 875 MG TAB PO SCH ×2 (07:38→21:42)
[2018-07-09] MEDS: MOM 30ML SUSPENSION UDC PO SCH ×2 (07:38→21:42)
[2018-07-09] MEDS: LACTULOSE 20 GM/30 ML SYRUP UD PO SCH ×2 (07:38→21:42)
[2018-07-09] MEDS: HumaLOG INSULIN (NovoLOG) PER UNIT SC SCH ×4 (07:39→21:00)
[2018-07-09] MEDS: SENNA 8.6 MG TAB (SENOKOT) PO SCH ×2 (07:39→21:43)
[2018-07-09] MEDS: PANTOPRAZOLE 40MG TAB (PROTONIX) PO SCH (07:39)
[2018-07-09 14:00] VITALS: BP 109/57
[2018-07-09 16:00] VITALS: BP 109/57
[2018-07-09] MEDS: QUEtiapine FUMARATE **XR** 200MG TABLET PO SCH (17:25)
[2018-07-09] MEDS ORDERED: FLEET ENEMA PR PRN (18:00)
[2018-07-09] MEDS ORDERED: MAGNESIUM CITRATE 300 ML BTL PO ONE (18:00)
--- NOTE | 2018-07-09 18:36 | IPN ---
DATE: 07/09/2018 SUBJECTIVE: The patient is seen and examined in the room today. The patient is not a good historian. The patient has not had any bowel movement since 07/04/2018. According to staff, the patient has been tolerating oral intake. OBJECTIVE: VITAL SIGNS: Temperature is 98, pulse is 70, respirations 15, blood pressure 133/63, pulse oximetry is 96% in room air. GENERAL: The patient is alert and awake, not uncomfortable. HEENT: Normocephalic, atraumatic. Extraocular motor grossly intact. CARDIOVASCULAR: Positive S1, S2, regular rate. LUNGS: Clear to auscultation bilaterally. ABDOMEN: Positive urostomy in place. Abdomen soft. EXTREMITIES: Right lower extremity wound VAC. LABORATORY DATA: WBC 5.9, hemoglobin 9.3, hematocrit 28.6, platelet count is 215. Sodium is 135, potassium 4.3, chloride 102, carbon dioxide 29, BUN 23, creatinine 1.63, GFR is 43, fasting glucose 232, magnesium 2.6, calcium is 7.7. ASSESSMENT AND PLAN: 1. Severe constipation. Patient had one bowel movement after the enema on 07/04/2018. Per documentation, the patient had another bowel movement on 07/05/2018. However, since then, the patient has not had any bowel movements. Per report, the patient has been having good oral intake. The patient is already on multiple bowel regimens. Will add Fleet enema and magnesium citrate as needed. 2. Macrocytic anemia. Patient had blood transfusion on 07/06/2018. Hemoglobin and hematocrit have remained in a steady range since the transfusion. Continue to monitor for any signs of bleeding or any symptoms of anemia. 3. Diabetes. On sliding scale. 4. Chronic kidney disease, stage III. 5. History of coronary artery disease. On pravastatin. 6. History of bladder and prostate cancer. Status post cystectomy and prostatectomy. Status post urostomy. 7. History of right lower extremity deep vein thrombosis (DVT). Not on anticoagulation due to history of hematoma. Status post inferior vena cava (IVC) filter. 8. Anxiety/depression. On Paxil. 9. Intellectual disability. The patient is a [facility] ([facility]) resident. 10. Gastroesophageal reflux disease. On Protonix. 11. Deep vein thrombosis prophylaxis. Patient on IVC filter. Thromboembolism deterrent (TEDs) compression ordered. MTDD
[2018-07-09] MEDS: PARoxetine 20 MG TAB PO SCH (21:42)
[2018-07-09] MEDS: MIRALAX *UNIT DOSE* 17GM PACKET PO PRN (21:42)
[2018-07-09] MEDS: PRAVASTATIN 20 MG TAB PO SCH (21:43)
[2018-07-09 22:00] VITALS: BP 131/71
[2018-07-10] MEDS: NYSTATIN 100,000 UNITS/GM TOPICAL PWD 15 GM TOP SCH ×3 (00:41→22:30)
[2018-07-10 06:00] VITALS: BP 140/76
[2018-07-10 06:19] LABS: HEMATOCRIT 30.2 % (42.0-52.0); HEMOGLOBIN 9.7 g/dl (13.5-17.5); MEAN CORPUSCULAR HEMOGLOBIN 30.5 pg (27.0-33.0); MEAN CORPUSCULAR HGB CONC 32.1 g/dl (32.0-36.5); PLATELET COUNT, AUTOMATED 239 10^3/uL (150-450); RED BLOOD COUNT 3.18 10^6/uL (4.30-6.10); WHITE BLOOD COUNT 5.3 10^3/uL (4.0-10.0)
[2018-07-10 06:34] LABS: CALCIUM LEVEL 7.8 MG/DL (8.8-10.2); CREATININE FOR GFR 1.57 MG/DL (0.70-1.30); GLOMERULAR FILTRATION RATE 44.9 (>35); MAGNESIUM LEVEL 2.7 MG/DL (1.8-2.4); POTASSIUM SERUM 4.6 MEQ/L (3.5-5.1)
[2018-07-10] MEDS: HumaLOG INSULIN (NovoLOG) PER UNIT SC SCH ×4 (07:30→22:45)
[2018-07-10] MEDS: LACTULOSE 20 GM/30 ML SYRUP UD PO SCH ×2 (09:49→22:28)
[2018-07-10] MEDS: SENNA 8.6 MG TAB (SENOKOT) PO SCH ×2 (09:49→22:29)
[2018-07-10] MEDS: MOM 30ML SUSPENSION UDC PO SCH ×2 (09:49→22:28)
[2018-07-10] MEDS: AUGMENTIN 875 MG TAB PO SCH ×2 (09:49→22:29)
[2018-07-10] MEDS: PANTOPRAZOLE 40MG TAB (PROTONIX) PO SCH (09:49)
--- NOTE | 2018-07-10 11:11 | REP ---
Clinical: Severe constipation. Technique: Two supine views of the abdomen and pelvis. Findings: Bowel gas pattern is nonspecific and without significant fecal stasis noted. Surgical material noted throughout the abdomen and pelvis. IVC filter identified in seemingly satisfactory position. Skeletal structures demonstrate degenerative changes. Impression: Nonspecific bowel gas pattern. Electronically Signed by Timmy Richey MD 07/10/2018 11:02 A
[2018-07-10 14:00] VITALS: BP 157/59
--- NOTE | 2018-07-10 14:12 | IPNPDOC ---
Text Note Date of Service The patient was seen on 07/10/18. NOTE SUBJECTIVE: The patient is seen and examined in the room today. Patient denies acute complaint. Denies fever or chill. Denies abdominal pain. OBJECTIVE: VITAL SIGNS: Listed below. GENERAL: The patient is alert and awake, not uncomfortable. HEENT: Normocephalic, atraumatic. Extraocular motor grossly intact. CARDIOVASCULAR: Positive S1, S2, regular rate. LUNGS: Clear to auscultation bilaterally. ABDOMEN: Positive urostomy in place. Abdomen soft. EXTREMITIES: Right lower extremity wound VAC. LABORATORY DATA: Listed below. ASSESSMENT AND PLAN: #. Severe constipation. - Patient had one bowel movement after the enema on 07/04/2018. Per documentation, the patient had another bowel movement on 07/05/2018. However, since then, the patient has not had any bowel movements. P er report, the patient has been having good oral intake. The patient is already on multiple bowel regimens. - Abdominal x-ray reviewed. Will continue fleet enema. #. Macrocytic anemia. - S/P blood transfusion on 07/06/2018. Hemoglobin and hematocrit have remained stable. Continue to monitor for any signs of bleeding or any symptoms of anemia. #. Diabetes. On sliding scale. #. Chronic kidney disease, stage III. #. History of coronary artery disease. On pravastatin. #. History of bladder and prostate cancer. Status post cystectomy and prostatectomy. Status post urostomy. #. History of right lower extremity deep vein thrombosis (DVT). - Not on anticoagulation due to history of hematoma. Status post inferior vena cava (IVC) filter. #. Anxiety/depression. On Paxil. #. Intellectual disability. The patient is a [facility] ([facility]) resident. #. Gastroesophageal reflux disease. On Protonix. #. Deep vein thrombosis prophylaxis. Patient on IVC filter. Thromboembolism deterrent (TEDs) compression ordered. VS,Fishbone, I+O VS, Fishbone, I+O Laboratory Tests 07/10/18 05:31 Red Blood Count 3.18 L, Mean Corpuscular Volume 95.0, Mean Corpuscular Hemoglobin 30.5, Mean Corpuscular Hemoglobin Concent 32.1, Red Cell Distribution Width 15.7 H, Calcium Level 7.8 L Vital Signs Date Time Temp Pulse Resp B/P (MAP) Pulse Ox O2 Delivery O2 Flow Rate FiO2 07/10/18 06:00 97.5 83 20 140/76 (97 94 Room Air I&O- Last 24 Hours up to 6 AM 07/10/18 06:00 Intake Total 620 ml Output Total 1500 ml Balance -880 ml SHREE ZIMMERMAN DO Jul 10, 2018 14:12
[2018-07-10] MEDS: QUEtiapine FUMARATE **XR** 200MG TABLET PO SCH (16:55)
[2018-07-10 22:00] VITALS: BP 119/53
[2018-07-10] MEDS: PRAVASTATIN 20 MG TAB PO SCH (22:29)
[2018-07-10] MEDS: PARoxetine 20 MG TAB PO SCH (22:29)
[2018-07-10] MEDS: FLEET ENEMA PR SCH (22:29)
[2018-07-11 06:00] VITALS: BP 121/63
[2018-07-11 06:43] LABS: HEMATOCRIT 29.1 % (42.0-52.0); HEMOGLOBIN 9.5 g/dl (13.5-17.5); MEAN CORPUSCULAR HEMOGLOBIN 30.7 pg (27.0-33.0); MEAN CORPUSCULAR HGB CONC 32.6 g/dl (32.0-36.5); MEAN CORPUSCULAR VOLUME 94.2 fl (80.0-96.0); PLATELET COUNT, AUTOMATED 257 10^3/uL (150-450); RED BLOOD COUNT 3.09 10^6/uL (4.30-6.10); WHITE BLOOD COUNT 6.7 10^3/uL (4.0-10.0)
[2018-07-11 07:05] LABS: CALCIUM LEVEL 7.6 MG/DL (8.8-10.2); CREATININE FOR GFR 1.74 MG/DL (0.70-1.30); GLOMERULAR FILTRATION RATE 39.9 (>35); MAGNESIUM LEVEL 2.8 MG/DL (1.8-2.4); POTASSIUM SERUM 4.6 MEQ/L (3.5-5.1)
[2018-07-11] MEDS: LACTULOSE 20 GM/30 ML SYRUP UD PO SCH (08:27)
[2018-07-11] MEDS: HumaLOG INSULIN (NovoLOG) PER UNIT SC SCH (08:28)
[2018-07-11] MEDS: MOM 30ML SUSPENSION UDC PO SCH (08:28)
[2018-07-11] MEDS: SENNA 8.6 MG TAB (SENOKOT) PO SCH (08:28)
[2018-07-11] MEDS: PANTOPRAZOLE 40MG TAB (PROTONIX) PO SCH (08:28)
[2018-07-11] MEDS: AUGMENTIN 875 MG TAB PO SCH (08:28)
[2018-07-11] MEDS: FLEET ENEMA PR SCH (08:29)
[2018-07-11] MEDS: NYSTATIN 100,000 UNITS/GM TOPICAL PWD 15 GM TOP SCH (08:29)
[2018-07-11] MEDS ORDERED: AMOX875T2 PO (10:31)
[2018-07-11] MEDS ORDERED: FLEEENE4 PR (10:31)
--- NOTE | 2018-07-11 19:04 | DSES ---
DATE OF ADMISSION: 07/04/2018 DATE OF DISCHARGE: 07/11/2018 CONSULTANTS: General surgery. DISCHARGE DIAGNOSES: 1. Severe constipation. 2. Macrocytic anemia. 3. Diabetes. 4. Chronic kidney disease stage 3. 5. History of coronary artery disease. 6. History of bladder and prostate cancer status-post cholecystectomy, cystectomy, prostatectomy and urostomy. 7. History of deep venous thrombosis (DVT). 8. Anxiety/depression. 9. Social intellectual disability. 10. Gastroesophageal reflux disease. HOSPITALIZATION COURSE: Patient is [id number] [facility] resident who was brought to [facility] on 07/04/2018 with a complaint of nausea, vomiting, and lack of bowel movement for the last 4 days. Patient is admitted under the hospitalists service with a diagnosis of severe constipation and to rule out bowel obstruction. General surgery was consulted. Patient was placed nothing by mouth, started on IV support. Patient started to have some improvement of constipation after the Fleet enema. After evaluated by general surgery and general surgery signed off the case. Patient diet advanced. Later patient was found to have significant anemia. Blood consent obtained from patient's proxy and patient received 1 packed red blood cell transfusion on 07/06/2018. Patient's hemoglobin and hematocrit were monitored closely. However patient started to have lack of bowel movements. Patient bowel regimen is adjusted. Patient was finally able to have a good bowel movement after the Fleet enema. Hemoglobin and hematocrit remained stable and patient determined stable for discharge on 07/11/2018 with the recommendation to followup with his primary care provider. VITAL SIGNS ON THE DAY OF DISCHARGE: Temperature 97.9, pulse 78, respirations 18, blood pressure 121/63, pulse ox 96% on room air. LABORATORY DATA: WBC 6.7, hemoglobin 9.7, hematocrit 29.1, platelet count 257, sodium 137, potassium 4.6, chloride 103, carbon dioxide 27, BUN 25, creatinine 1.74, GFR 39.9, fasting glucose 202, calcium 7.6, magnesium 2.8. IMAGING STUDIES: CT of the abdomen and pelvis without contrast on 07/04/2018 demonstrated constipation, fecal impaction pattern with formed stool filled of the entire colon. Status-post cystectomy and prostatectomy. Evidence of recurrent right pelvic adenopathy, left inguinal hernia. Urinary diversion ileostomy with some mild stable bilateral hydronephrosis. DISCHARGE MEDICATON: Augmentin 1 tab by mouth twice a day for 2 more days, Fleet enema per rectum every 12 hours as needed, Tylenol 650 mg by mouth every 4 hours as needed, ascorbic acid 250 mg by mouth twice a day, bisacodyl 10 mg per rectum daily as needed for constipation, vitamin D 1 tab by mouth twice a day, Debrox 1 drop OU twice a week, Senokot S 1 tab by mouth twice a day, Colace 100 mg by mouth twice a day, ferrous sulfate 325 mg by mouth twice a day, glimepiride 60 mg by mouth daily, Levemir 18 units subcu daily, Bacid 1 tab by mouth twice a day, omeprazole 40 mg by mouth every 8 hours, Paxil 60 mg by mouth at bedtime, MiraLAX 17 grams by mouth in the morning, pravastatin 40 mg by mouth at bedtime, Seroquel 200 mg by mouth daily, Januvia 25 mg by mouth at bedtime. DISCHARGE INSTRUCTIONS: Discontinue line. Discharge patient back to [facility]. Activity as tolerated. Consistent carbohydrate as tolerated. Patient should followup with his primary care provider in 1-2 weeks. DISCHARGE CONDITION: Fair. DISCHARGE TIME: Greater than 30 minutes.
== END 2018-07-11 13:30 | disposition home or self-care (01) | DRG 392 ==
LOC: M ED 10:21 → M ED INP 19:31 → M MSPAV 22:34
PROVIDERS: ADMIT Hospitalist; ATTEND Internal Medicine
PROC: 30233N1 Transfusion of Nonautologous Red Blood Cells into Peripheral Vein, Percutaneous Approach (ICD-10-PCS; principal; 2018-07-06)
DX: K59.00 Constipation, unspecified (principal); F72 Severe intellectual disabilities; N13.30 Unspecified hydronephrosis; E11.9 Type 2 diabetes mellitus without complications; N18.3 Chronic kidney disease, stage 3 (moderate); K21.9 Gastro-esophageal reflux disease without esophagitis; F41.9 Anxiety disorder, unspecified; F32.9 Major depressive disorder, single episode, unspecified; I25.10 Atherosclerotic heart disease of native coronary artery without angina pectoris; D53.9 Nutritional anemia, unspecified; Z85.51 Personal history of malignant neoplasm of bladder; Z85.46 Personal history of malignant neoplasm of prostate; Z86.718 Personal history of other venous thrombosis and embolism; I25.2 Old myocardial infarction; K40.90 Unilateral inguinal hernia, without obstruction or gangrene, not specified as recurrent; Z91.040 Latex allergy status; Z88.8 Allergy status to other drugs, medicaments and biological substances; Z79.899 Other long term (current) drug therapy; Z79.4 Long term (current) use of insulin; D72.829 Elevated white blood cell count, unspecified; Z93.2 Ileostomy status

== ENCOUNTER 2018-07-16 13:07 | Emergency (ER) | payer MEDICARE, MEDICAID ==
[~2018-07-16 13:07] MED LIST changes: +ASCO250T PO; +AUGM875T28 PO; +FLEEENE4 PR; +GLIM4TAB PO; +SENN8.6T54 PO
--- NOTE | 2018-07-16 14:58 | REP ---
Chest two views HISTORY: Cough Comparison: 06/11/2018 Linear densities are present in the lower lobes consistent with atelectasis or scar. The heart is normal in size. The pulmonary vasculature is normal in appearance. Degenerative change is present in the thoracic spine. IMPRESSION: Bibasilar atelectasis or scar. Electronically Signed by Harish Mcdonald MD 07/16/2018 02:50 P
[2018-07-16 15:11] LABS: VENOUS BASE EXCESS -2.9 (-2.0-2.0); VENOUS HCO3 23.3 MEQ/L (23.0-27.0); VENOUS O2 SATURATION 62.5 % (60.0-80.0); VENOUS PARTIAL PRESSURE O2 37.7 mmHg (30.0-50.0); VENOUS PH 7.323 UNITS (7.330-7.430); VENOUS STANDARD HCO3 21.4 MEQ/L; VENOUS TOTAL CO2 24.7 MEQ/L (24.0-28.0)
[2018-07-16 15:14] LABS: BASO # 0.1 10^3/uL (0.0-0.2); BASO % 0.4 % (0.0-1.0); EOS % 0.3 % (0.0-3.0); HEMATOCRIT 36.5 % (42.0-52.0); HEMOGLOBIN 11.6 g/dl (13.5-17.5); LYMPH # 0.8 10^3/uL (1.5-4.5); LYMPH % 6.4 % (24.0-44.0); MEAN CORPUSCULAR HEMOGLOBIN 30.7 pg (27.0-33.0); MEAN CORPUSCULAR HGB CONC 31.8 g/dl (32.0-36.5); MEAN CORPUSCULAR VOLUME 96.6 fl (80.0-96.0); MONO # 0.9 10^3/uL (0.0-0.8); MONO % 7.6 % (0.0-5.0); NEUTROPHILS # 10.5 10^3/uL (1.8-7.7); NEUTROPHILS % 84.6 % (36.0-66.0); PLATELET COUNT, AUTOMATED 296 10^3/uL (150-450); RED BLOOD COUNT 3.78 10^6/uL (4.30-6.10); WHITE BLOOD COUNT 12.5 10^3/uL (4.0-10.0)
[2018-07-16 15:37] LABS: BILIRUBIN,TOTAL 0.4 MG/DL (0.2-1.0); CALCIUM LEVEL 8.8 MG/DL (8.8-10.2); CREATININE FOR GFR 1.75 MG/DL (0.70-1.30); GLOMERULAR FILTRATION RATE 39.6 (>35); POTASSIUM SERUM 4.7 MEQ/L (3.5-5.1); TOTAL PROTEIN 6.8 GM/DL (6.4-8.2)
[2018-07-16] MEDS ORDERED: NS 500 ML IV ONE ×2 (15:45→17:30)
[2018-07-16] MEDS ORDERED: cefTRIAXone SOD 1 GM in D5W MINI-BAG PLUS 50 ML IV ONE (16:00)
[2018-07-16] MEDS: GASTROGRAFIN SOLUTION 30ML PO SCH ×2 (16:20→17:12)
--- NOTE | 2018-07-16 18:48 | REPVR ---
EXAM: CT Abdomen and Pelvis Without Contrast EXAM DATE/TIME: 07/16/2018 5:59 PM CLINICAL HISTORY: 83 years old, male; Signs and symptoms; Other: Loss appetite; Additional info: Decreased appetite, ? obstruction TECHNIQUE: Axial computed tomography images of the abdomen and pelvis without contrast. All CT scans at this facility use at least one of these dose optimization techniques: automated exposure control; mA and/or kV adjustment per patient size (includes targeted exams where dose is matched to clinical indication); or iterative reconstruction. Coronal and sagittal reformatted images were created and reviewed. COMPARISON: CT ABD PELVIS W/O CONTRAST 07/04/2018 11:32 AM FINDINGS: Lower thorax: Compressive atelectasis right lung. Calcified granuloma right lower lobe. Moderate to large retrocardiac hiatal hernia. ABDOMEN: Liver: Multiple hepatic cysts measure up to 2.8 cm in the left lobe of the liver. Gallbladder and bile ducts: There has been a cholecystectomy. Pancreas: Normal. No ductal dilation. Spleen: Normal. No splenomegaly. Adrenals: There is a focal hypodense mass in the right adrenal gland measuring 1.6 x 1.7 cm, consistent in appearance and density with a benign adrenal adenoma. Findings stable in comparison to the prior study. Kidneys and ureters: Bilateral dilated renal pelves and calyces and ureters a lesser degree consistent with prior cystectomy and ileoconduit construction. Stomach and bowel: There is increased feces throughout the colon consistent with constipation. No significant retained feces in the distal colon suggesting transition and possible obstruction at the level of the proximal sigmoid colon. No discrete mass demonstrated. Appendix: No evidence of appendicitis. PELVIS: Bladder: Unremarkable as visualized. Reproductive: Unremarkable as visualized. ABDOMEN and PELVIS: Intraperitoneal space: Normal. No free air. No significant fluid collection. Bones/joints: The spine demonstrates mild degenerative changes. Soft tissues: There is mild soft tissue edema demonstrated in the abdominal wall, flanks and buttock regions consistent with anasarca. Vasculature: Filter in inferior vena cava. Lymph nodes: Normal. No enlarged lymph nodes. Other findings: Ileostomy in right lower quadrant. IMPRESSION: 1. There is increased feces throughout the colon consistent with constipation. No significant retained feces in the distal colon suggesting transition and possible obstruction at the level of the proximal sigmoid colon. No discrete mass demonstrated. 2. There has been a cholecystectomy. 3. Moderate to large retrocardiac hiatal hernia. 4. Anasarca. Electronically signed by: Mike Jenkins On 07/16/2018 18:48:36 PM
[2018-07-16] MEDS ORDERED: ONDANSETRON 4MG/2ML VIAL (J2405) IV ONE (19:00)
[2018-07-16 21:34] VITALS: BP 120/80
[2018-07-16] MEDS ORDERED: CEFD1CAP8 PO (21:40)
[2018-07-16] MEDS ORDERED: ONDA4TAB6 PO (21:40)
--- NOTE | 2018-07-17 14:50 | ED PDOC ---
Post-Departure Follow-Up dr phillip faxed formal report of ct abd/p for fu Christiane Garland MD Jul 17, 2018 14:50
== END 2018-07-16 22:04 | disposition home or self-care (01) ==
LOC: M ED 13:07
DX: K59.00 Constipation, unspecified (principal); N39.0 Urinary tract infection, site not specified; I12.9 Hypertensive chronic kidney disease with stage 1 through stage 4 chronic kidney disease, or unspecified chronic kidney disease; E11.9 Type 2 diabetes mellitus without complications; I50.9 Heart failure, unspecified; N18.9 Chronic kidney disease, unspecified; F41.9 Anxiety disorder, unspecified; F70 Mild intellectual disabilities; K21.9 Gastro-esophageal reflux disease without esophagitis; Z86.69 Personal history of other diseases of the nervous system and sense organs; Z85.46 Personal history of malignant neoplasm of prostate; Z79.899 Other long term (current) drug therapy; Z88.8 Allergy status to other drugs, medicaments and biological substances; Z91.040 Latex allergy status
CPT/HCPCS: 36415; 71046; 74176; 80053; 81001; 82803; 83605; 85025; 87040; 87088; 87186; 96361; 96365; 96375; 99284; J0696; J2405; Q9963

== ENCOUNTER → 2018-08-27 | Outpatient (CLI) | payer MEDICARE, MEDICAID ==
[~2018-08-27] MED LIST changes: +ONDA4TAB6 PO
[2018-08-27 16:30] LABS: ALBUMIN 2.8 GM/DL (3.2-5.2); BILIRUBIN,TOTAL 0.3 MG/DL (0.2-1.0); CALCIUM LEVEL 8.3 MG/DL (8.8-10.2); CREATININE FOR GFR 1.81 MG/DL (0.70-1.30); GLOMERULAR FILTRATION RATE 38.1 (>35); POTASSIUM SERUM 5.1 MEQ/L (3.5-5.1); TOTAL PROTEIN 6.8 GM/DL (6.4-8.2)
[2018-08-27 16:39] LABS: BASO # 0.1 10^3/uL (0.0-0.2); BASO % 1.1 % (0.0-1.0); EOS # 0.2 10^3/uL (0.0-0.50); EOS % 2.8 % (0.0-3.0); HEMATOCRIT 35.6 % (42.0-52.0); HEMOGLOBIN 11.3 g/dl (13.5-17.5); LYMPH # 0.8 10^3/uL (1.5-4.5); LYMPH % 14.8 % (24.0-44.0); MEAN CORPUSCULAR HEMOGLOBIN 29.9 pg (27.0-33.0); MEAN CORPUSCULAR HGB CONC 31.7 g/dl (32.0-36.5); MEAN CORPUSCULAR VOLUME 94.2 fl (80.0-96.0); MONO # 0.6 10^3/uL (0.0-0.8); MONO % 11.8 % (0.0-5.0); NEUTROPHILS # 3.7 10^3/uL (1.8-7.7); NEUTROPHILS % 68.8 % (36.0-66.0); PLATELET COUNT, AUTOMATED 240 10^3/uL (150-450); RED BLOOD COUNT 3.78 10^6/uL (4.30-6.10); WHITE BLOOD COUNT 5.3 10^3/uL (4.0-10.0)
== END ==
LOC: M WUC 11:54
PROVIDERS: ATTEND Family Medicine
DX: Z51.81 Encounter for therapeutic drug level monitoring (principal); Z79.01 Long term (current) use of anticoagulants; Z85.46 Personal history of malignant neoplasm of prostate

== ENCOUNTER → 2018-08-27 | Outpatient (CLI) | payer MEDICARE, MEDICAID | LOC: M WUC 11:57 | PROVIDERS: ATTEND Nurse Practitioner Women's Health | DX: Z85.46 Personal history of malignant neoplasm of prostate (principal) ==

== ENCOUNTER → 2018-10-15 | Outpatient (CLI) | payer MEDICARE, MEDICAID ==
[~2018-10-15] MED LIST changes: -/PANT40TA; -/QUET10TA; +ACET650T15 PO; -ASCO25TA PO; +ASCO500T PO; +CALCD50TA PO; -GLIM2TA PO; +GLIM2TAB29 PO; +PROT1TAB2; +QUET1TAB9 PO; -QUET20XRTB; +SENN-50 PO; -SENN1TAB2 PO; +SENN1TAB40 PO; -SENN8.6T54 PO; +SERO1TAB; +SERO200T43; +VITA1TAB23 PO; +[UNRECOGNIZED DRUG - CODE] MC
[2018-10-15 19:38] LABS: HEMATOCRIT 36.8 % (42.0-52.0); HEMOGLOBIN 11.6 g/dl (13.5-17.5); MEAN CORPUSCULAR HEMOGLOBIN 28.9 pg (27.0-33.0); MEAN CORPUSCULAR HGB CONC 31.5 g/dl (32.0-36.5); MEAN CORPUSCULAR VOLUME 91.8 fl (80.0-96.0); PLATELET COUNT, AUTOMATED 200 10^3/uL (150-450); RED BLOOD COUNT 4.01 10^6/uL (4.30-6.10); WHITE BLOOD COUNT 5.3 10^3/uL (4.0-10.0)
[2018-10-15 19:48] LABS: BLOOD UREA NITROGEN 40 MG/DL (7-18); CALCIUM LEVEL 8.9 MG/DL (8.8-10.2); CARBON DIOXIDE LEVEL 27 MEQ/L (21-32); CHLORIDE LEVEL 105 MEQ/L (98-107); CREATININE FOR GFR 1.87 MG/DL (0.70-1.30); GLOMERULAR FILTRATION RATE 36.7 (>35); GLUCOSE, FASTING 100 MG/DL (70-100); POTASSIUM SERUM 4.7 MEQ/L (3.5-5.1); PROSTATIC SPECIFIC AG MONITOR < 0.01 NG/ML (< 4.00); SODIUM LEVEL 138 MEQ/L (136-145)
== END ==
LOC: M WUC 15:53
PROVIDERS: ATTEND Nurse Practitioner Women's Health
DX: Z85.51 Personal history of malignant neoplasm of bladder (principal); R97.20 Elevated prostate specific antigen [PSA]

== ENCOUNTER → 2018-10-21 | Outpatient (REF) | payer MEDICARE, MEDICAID ==
[~2018-10-21] MED LIST changes: +LACT10SO29 PO
== END ==
LOC: M SMT 13:46
PROVIDERS: ATTEND Urology
DX: Z85.51 Personal history of malignant neoplasm of bladder (principal)
CPT/HCPCS: 88108; G0463

== ENCOUNTER 2018-10-30 16:02 | Emergency (ER) | payer MEDICARE, MEDICAID ==
[~2018-10-30] VITALS: Ht 167.6 cm; Wt 63.6 kg
[~2018-10-30 16:02] MED LIST changes: -LACT10SO29 PO
[2018-10-30] MEDS ORDERED: LACT10SO29 PO (16:13)
--- NOTE | 2018-10-30 17:20 | REP ---
Clinical: Left groin pain. Technique: Real time mcgregor scale ultrasound examination using linear high frequency and curved array transducers. Findings: Left inguinal hernia containing fat and bowel is appreciated with a peritoneal defect measuring approximately 4.2 cm diameter. Hernia was noted to be nonreducible during examination. No right inguinal hernia identified. Impression: Left inguinal hernia containing fat and bowel. Electronically Signed by Timmy Richey MD 10/30/2018 05:12 P
[2018-10-30 20:52] LABS: BASO % 0.7 % (0.0-1.0); EOS # 0.1 10^3/uL (0.0-0.50); EOS % 2.1 % (0.0-3.0); HEMATOCRIT 35.7 % (42.0-52.0); HEMOGLOBIN 11.5 g/dl (13.5-17.5); LYMPH # 0.9 10^3/uL (1.5-4.5); LYMPH % 14.7 % (24.0-44.0); MEAN CORPUSCULAR HEMOGLOBIN 30.1 pg (27.0-33.0); MEAN CORPUSCULAR HGB CONC 32.2 g/dl (32.0-36.5); MEAN CORPUSCULAR VOLUME 93.5 fl (80.0-96.0); MONO # 0.7 10^3/uL (0.0-0.8); MONO % 12.8 % (0.0-5.0); NEUTROPHILS % 69.2 % (36.0-66.0); PLATELET COUNT, AUTOMATED 181 10^3/uL (150-450); RED BLOOD COUNT 3.82 10^6/uL (4.30-6.10); WHITE BLOOD COUNT 5.8 10^3/uL (4.0-10.0)
[2018-10-30 21:11] LABS: CALCIUM LEVEL 8.4 MG/DL (8.8-10.2); CREATININE FOR GFR 1.93 MG/DL (0.70-1.30); GLOMERULAR FILTRATION RATE 35.4 (>35); POTASSIUM SERUM 4.6 MEQ/L (3.5-5.1)
[2018-10-30 22:45] VITALS: BP 90/56
--- NOTE | 2018-10-31 13:49 | ED PDOC ---
Post-Departure Follow-Up ingrid ospina and raffi faxed formal report of pelvis us for ananthcyndi Christiane Thomas MD October 31, 2018 13:49
== END 2018-10-30 23:16 | disposition home or self-care (01) ==
LOC: M ED 16:02
DX: K40.90 Unilateral inguinal hernia, without obstruction or gangrene, not specified as recurrent (principal); E10.9 Type 1 diabetes mellitus without complications; N18.3 Chronic kidney disease, stage 3 (moderate); E78.5 Hyperlipidemia, unspecified; I25.10 Atherosclerotic heart disease of native coronary artery without angina pectoris; N40.0 Benign prostatic hyperplasia without lower urinary tract symptoms; F41.9 Anxiety disorder, unspecified; R45.87 Impulsiveness; F70 Mild intellectual disabilities; Z79.899 Other long term (current) drug therapy; Z79.4 Long term (current) use of insulin; Z88.8 Allergy status to other drugs, medicaments and biological substances; Z91.040 Latex allergy status

== ENCOUNTER 2018-12-03 06:02 | Inpatient (IN) | payer MEDICARE, MEDICAID ==
[~2018-12-03] VITALS: Ht 167.6 cm; Wt 63.6 kg
[~2018-12-03 06:02] MED LIST changes: +LACT10SO29 PO
[2018-12-03] MEDS ORDERED: NS 1,910 ML in APPROPRIATE DILUENT 1 EA IV ONE (06:30)
[2018-12-03 06:49] LABS: BASO % 0.2 % (0.0-1.0); HEMATOCRIT 38.5 % (42.0-52.0); HEMOGLOBIN 12.5 g/dl (13.5-17.5); LYMPH # 0.4 10^3/uL (1.5-4.5); LYMPH % 2.4 % (24.0-44.0); MEAN CORPUSCULAR HEMOGLOBIN 30.9 pg (27.0-33.0); MEAN CORPUSCULAR HGB CONC 32.5 g/dl (32.0-36.5); MEAN CORPUSCULAR VOLUME 95.1 fl (80.0-96.0); MONO % 6.4 % (0.0-5.0); NEUTROPHILS # 13.9 10^3/uL (1.8-7.7); NEUTROPHILS % 90.6 % (36.0-66.0); PLATELET COUNT, AUTOMATED 214 10^3/uL (150-450); RED BLOOD COUNT 4.05 10^6/uL (4.30-6.10); WHITE BLOOD COUNT 15.3 10^3/uL (4.0-10.0)
[2018-12-03] MEDS ORDERED: DEBR6.5S4 AU (07:02)
[2018-12-03] MEDS ORDERED: GLIM1TAB PO (07:02)
[2018-12-03] MEDS ORDERED: MIRA1POW3 PO (07:02)
[2018-12-03] MEDS ORDERED: [UNRECOGNIZED DRUG - CODE] PO (07:02)
[2018-12-03] MEDS ORDERED: ONDA4TAB5 PO (07:02)
[2018-12-03] MEDS ORDERED: MILKSUS3 PO (07:02)
[2018-12-03] MEDS ORDERED: LACT10SO29 PO (07:02)
[2018-12-03] MEDS ORDERED: CALC500T44 PO (07:02)
[2018-12-03] MEDS ORDERED: QUET200T54 PO (07:02)
[2018-12-03 07:08] LABS: ALBUMIN 2.9 GM/DL (3.2-5.2); ALT/SGPT 16 U/L (12-78); BILIRUBIN,DIRECT 0.2 MG/DL (0.0-0.2); BILIRUBIN,TOTAL 0.5 MG/DL (0.2-1.0); CK-MB VALUE MASS 3.1 NG/ML (<3.6); CPK CREATINE PHOSPHOKINASE 35 U/L (39-308); LIPASE 110 U/L (73-393); MB/CK RELATIVE INDEX 8.86 (< OR =4); TOTAL PROTEIN 7.2 GM/DL (6.4-8.2); TROPONIN I < 0.02 NG/ML (< 0.10)
[2018-12-03 07:17] LABS: INR 1.04; PROTHROMBIN TIME 13.3 SECONDS (11.8-14.0)
[2018-12-03 07:18] LABS: PARTIAL THROMBOPLASTIN TIME 29.3 SECONDS (25.0-38.4)
[2018-12-03] MEDS ORDERED: FLUC150T PO (07:19)
[2018-12-03] MEDS ORDERED: DESI13CR2 TOP (07:19)
[2018-12-03] MEDS ORDERED: KETO2CR TOP (07:19)
--- NOTE | 2018-12-03 08:27 | REPVR ---
EXAM: CT Abdomen and Pelvis Without Contrast EXAM DATE/TIME: 12/03/2018 6:33 AM CLINICAL HISTORY: 83 years old, male; Other: Diarrhea TECHNIQUE: Imaging protocol: Axial computed tomography images of the abdomen and pelvis without contrast. Coronal and sagittal reformatted images were created and reviewed. Radiation optimization: All CT scans at this facility use at least one of these dose optimization techniques: automated exposure control; mA and/or kV adjustment per patient size (includes targeted exams where dose is matched to clinical indication); or iterative reconstruction. COMPARISON: CT ABD/PEL W/PO CONTRAST ONLY 07/16/2018 5:44 PM FINDINGS: Evaluation is somewhat limited in the absence of intravenous and enteric contrast. Beam hardening artifact in association with superficial EKG leads. Lungs: Bilateral interstitial/airspace disease and chronic granulomatous disease. Punctate pleural calcification. Coronary arterial calcification. Mediastinum: Large hiatal hernia and a dilated fluid-filled esophagus. Liver: Multiple hepatic cysts, the largest measuring 2.7 cm. Gallbladder and bile ducts: Status post cholecystectomy without significant biliary ductal dilatation. Pancreas: Punctate pancreatic head calcification. No significant pancreatic ductal dilatation. Spleen: No splenomegaly. Adrenals: Right adrenal nodularity. Left adrenal calcification. Kidneys and ureters: 1.4 cm right renal cyst. Interval improvement in bilateral hydronephrosis. Stomach and bowel: Marked small bowel dilatation without a focal transition zone. Correlation with small bowel follow through can be performed for improved characterization, as clinically indicated. Colonic dilatation and copious stool, consistent with constipation. Rectal wall thickening with infiltration of perirectal fat, consistent with proctitis in the appropriate clinical setting. Right-sided ostomy. Appendix: Status post appendectomy. Intraperitoneal space: Poorly defined and poorly characterized 5.4 x 3.0 x 3.7 cm cystic collection with peripheral calcifications in the right lateral pelvis at the level of the acetabular roofs. No significant free fluid. Vasculature: No abdominal aortic aneurysm. IVC filter. Lymph nodes: Subcentimeter lymph nodes. Bladder: Decompressed bladder limiting evaluation. Reproductive: Punctate prostate calcification. Bones/joints: Osteopenia, degenerative change, and disc bulging. Soft tissues: Bowel containing left inguinal hernia. Injection granulomata. IMPRESSION: 1. Large hiatal hernia and a dilated fluid-filled esophagus. 2. Marked small bowel dilatation without a focal transition zone. Correlation with small bowel follow through can be performed for improved characterization, as clinically indicated. 3. Colonic dilatation and copious stool, consistent with constipation. 4. Rectal wall thickening with infiltration of perirectal fat, consistent with proctitis in the appropriate clinical setting. 5. Bowel containing left inguinal hernia. 6. Additional findings as described above. Electronically signed by: Neo Mitchell On 12/03/2018 08:27:12 AM
[2018-12-03] MEDS ORDERED: ERTAPENEM SODIUM 1 GM in NS MINI-BAG PLUS 50 ML IV ONE (08:30)
[2018-12-03] MEDS: OMEPRAZOLE 20 MG CAP PO SCH (09:00)
[2018-12-03] MEDS ORDERED: ERTAPENEM SODIUM 0.5 GM in NS 50 ML IV ONE (10:00)
[2018-12-03] MEDS: NS 1,000 ML IV SCH ×4 (10:00→21:09)
[2018-12-03] MEDS: HumaLOG INSULIN (NovoLOG) PER UNIT SC SCH ×2 (12:00→17:27)
--- NOTE | 2018-12-03 13:08 | HPEPDOC ---
[facility] Medical History & Physical Date of Admission Dec 03, 2018 Date of Service: Dec 03, 2018 History and Physical PRIMARY CARE PROVIDER: Dr. Marcelino CHIEF COMPLAINT: weakness and diarrhea this morning. HISTORY OF PRESENT ILLNESS: (provided by [facility] staff at the bedside. pt was uncooperative with the interview, saying "what? what? no. no." ) 83-year-old male past medical history of mental retardation, hypertension, diabetes, chronic kidney disease baseline 1.5, recurrent UTIs, right LE DVT, and ilial conduit with urinary diversion presenting with bilateral lower extremity weakness since Sunday, but worse this morning with accompanying nausea, nonbilious nonprojectile vomiting, loose stools x 1. He has been in his usual state of health until Sunday when he c/o "feeling full" with decreased oral intake over the weekend, stayed in bed all day on Sunday, and increased weakness of his legs and was found to be "lifeless" this morning after an episode of nonbloody nonmucusy watery diarrhea . No fever, cough, or sob. denies any weight loss. Per [facility] staff, pt is given 16 ounces of liquids with meals and 8 oz in between which the patient has been taking, aside from recent vomiting. no other sick contacts. no change sin medications. PAST MEDICAL HISTORY: Mental retardation Hypertension Diabetes mellitus Chronic kidney disease Diastolic congestive heart failure Recurrent UTIs History of bladder and prostate cancer status post radical cystectomy, prostatectomy Intracorporeal ileal conduit urinary diversion CAD sp AK sp cardiac catheterization PAST SURGICAL HISTORY: Robotic assisted radical cystectomy Robotic-assisted prostatectomy with bilateral extended pelvic lymph node dissection and intracorporeal ileal conduit urinary diversion SOCIAL HISTORY: No tobacco use history, no alcohol use history, no illicit drug use history. Lives at [facility]. FAMILY HISTORY: ALLERGIES: Please see below. REVIEW OF SYSTEMS: ROS limited secondary to patient's mental status. 10 point systems review could not be obtained as pt was uncooperative, and says, "what? what? no. no." HOME MEDICATIONS: Please see below. PHYSICAL EXAMINATION: Vitals: (see below) General: AAOx 3. No acute distress, no use of accessory respiratory muscles HEENT: Normocephalic, atraumatic. Moist mucous membranes.anicteric no jaundice Neck: No JVD or lymphadenopathy Cardiac: RRR, No murmurs Pulm: Clear to auscultation b/l. No wheezing, crackles, rhonchi Abd: Soft, non-tender, non-distended, no guarding, rebound tenderness, or rigidity. BSx4. Ileal conduit with bladder bag present with no signs of drainage or infection.. Ext:no pitting edema or cyanosis LABORATORY DATA, IMAGING STUDIES, MICROBIOLOGY: Please see below. ASSESSMENT/PLAN: 83-year-old male past medical history of mental retardation, hypertension, diabetes, chronic kidney disease baseline 1.5, recurrent UTIs, right LE DVT, and ilial conduit with urinary diversion presenting with bilateral lower extremity weakness since Sunday, but worse this morning with accompanying nausea, nonbilious nonprojectile vomiting, loose stools x 1. He has been in his usual state of health until Sunday when he c/o "feeling full" with decreased oral intake over the weekend, stayed in bed all day on Sunday, and increased weakness of his legs and was found to be "lifeless" this morning after an episode of nonbloody nonmucusy watery diarrhea . No fever, cough, or sob. denies any weight loss. Per [facility] staff, pt is given 16 ounces of liquids with meals and 8 oz in between which the patient has been taking, aside from recent vomiting. no other sick contacts. no changes in medications. SEPSIS due to UTI with h/o ileal conduit urinary diversion -History of bladder and prostate cancer status post radical cystectomy, prostatectomy Intracorporeal ileal conduit urinary diversion Obtaining blood cultures 2, urine cultures. Chest x-ray negative for any acute findings, likely source of infection is patient's UTI -received invanz in ER. -pt has h/o E. coli, mrsa, enteroccoccus from previous urine cx -continue on iv ceftriaxone and doxycycline -await culture results. UTI SEPSIS due to UTI with h/o ileal conduit urinary diversion -History of bladder and prostate cancer status post radical cystectomy, prostatectomy Intracorporeal ileal conduit urinary diversion Obtaining blood cultures 2, urine cultures. Chest x-ray negative for any acute findings, likely source of infection is patient's UTI -received invanz in ER. -pt has h/o E. coli, mrsa, enteroccoccus from previous urine cx -continue on iv ceftriaxone and doxycycline -await culture results. Normocytic Anemia Will continue to monitor, patient has chronic anemia at baseline CAD Continue pravastatin GERD - Continue omeprazole .Depression Continue Seroquel and Paxil large hiatal hernia -symptomatic care -defer to pcp if surgical referral is requested by pt and family Diarrhea -most likely leakage from chronic constipation -check gi panel Vital Signs Vital Signs Date Time Temp Pulse Resp B/P (MAP) Pulse Ox O2 Delivery O2 Flow Rate FiO2 12/03/18 08:45 87 124/67 (86) 92 Room Air 12/03/18 07:30 20 12/03/18 06:17 96.5 Laboratory Data Labs 24H Laboratory Tests 2 12/03/18 06:24: POC Glucose (Misc Panel) 257H, POC Sodium (Misc Panel) 135L, POC Potassium (Misc Panel) 4.6, POC Chloride (Misc Panel) 100, POC Total CO2 (Misc Panel) 23.0, POC Blood Urea Nitrogen (Misc Panel 51H, POC Ionized Calcium (Misc Panel) 4.6, POC Creatinine (Misc Panel) 2.5H, POC Hematocrit (Misc Panel) 39.0 12/03/18 06:28: Immature Granulocyte % (Auto) 0.4, White Blood Count 15.3H, Red Blood Count 4.05L, Hemoglobin 12.5L, Hematocrit 38.5L, Mean Corpuscular Volume 95.1, Mean Corpuscular Hemoglobin 30.9, Mean Corpuscular Hemoglobin Concent 32.5, Red Cell Distribution Width 14.5, Platelet Count 214, Neutrophils (%) (Auto) 90.6H, Lymphocytes (%) (Auto) 2.4L, Monocytes (%) (Auto) 6.4H, Eosinophils (%) (Auto) 0.0, Basophils (%) (Auto) 0.2, Neutrophils # (Auto) 13.9H, Lymphocytes # (Auto) 0.4L, Monocytes # (Auto) 1.0H, Eosinophils # (Auto) 0.0, Basophils # (Auto) 0.0, Nucleated Red Blood Cells % (auto) 0.0, Prothrombin Time 13.3, Prothromb Time International Ratio 1.04, Activated Partial Thromboplast Time 29.3, Lactic Acid Level 3.7*H, Aspartate Amino Transf (AST/SGOT) 21, Alanine Aminotransferase (ALT/SGPT) 16, Alkaline Phosphatase 106, Total Bilirubin 0.5, Direct Bilirubin 0.2, Total Creatine Kinase 35L, Creatine Kinase MB 3.1, Creatine Kinase MB Relative Index 8.86H, Troponin I < 0.02, Total Protein 7.2, Albumin 2.9L, Albumin/Globulin Ratio 0.67L, Lipase 110 12/03/18 07:52: Urine Color DK YELLOW, Urine Appearance CLOUDYH, Urine pH 6.0, Urine Specific [place] 1.012, Urine Protein 1+H, Urine Glucose (UA) NEGATIVE, Urine Ketones NEGATIVE, Urine Blood NEGATIVE, Urine Nitrite NEGATIVE, Urine Bilirubin NEGATIVE, Urine Urobilinogen 0.2, Urine Leukocyte Esterase 3+H, Urine WBC (Auto) TNTCH, Urine RBC (Auto) 12H, Urine Hyaline Casts (Auto) 0, Urine Bacteria (Auto) 3+H, Urine Squamous Epithelial Cells 0, Urine Amorphous Sediment SMALLH, Urine Mucus (Auto) SMALL, Urine Sperm (Auto) CBC/BMP Laboratory Tests 12/03/18 06:28 Red Blood Count 4.05 L, Mean Corpuscular Volume 95.1, Mean Corpuscular Hemoglobin 30.9, Mean Corpuscular Hemoglobin Concent 32.5, Red Cell Distribution Width 14.5, Neutrophils (%) (Auto) 90.6 H, Lymphocytes (%) (Auto) 2.4 L, Monocytes (%) (Auto) 6.4 H, Eosinophils (%) (Auto) 0.0, Basophils (%) (Auto) 0.2, Neutrophils # (Auto) 13.9 H, Lymphocytes # (Auto) 0.4 L, Monocytes # (Auto) 1.0 H, Eosinophils # (Auto) 0.0, Basophils # (Auto) 0.0 Microbiology Microbiology 12/03/18 Blood Culture, Received Pending 12/03/18 Blood Culture, Received Pending 12/03/18 Urine Culture, Received Pending Home Medications Scheduled Ascorbic Acid (Vitamin C) 250 Mg Tab.chew, 250 MG PO BID Calcium Carbonate/Vitamin D3 (Calcium 500-Vit D3 200 Tablet) 1 Each Tablet, 1 T AB PO BID Carbamide Peroxide (Debrox) 15 Ml Drops, 1 DROP AU 2XWK SUNDAY AND SUNDAY AT QHS Docusate Sodium (Colace) 100 Mg Cap, 100 MG PO BID Ferrous Sulfate (Ferrous Sulfate) 325 Mg Tab, 325 MG PO BID Fluconazole (Fluconazole) 150 Mg Tablet, 150 MG PO QWEEK FOR 14 DAYS STARTING 11/26/18 Insulin Detemir (Levemir) 1 Units/0.01 Ml Susp, 18 UNITS SC DAILY Ketoconazole (Ketoconazole) 15 Gm Cream..g., 2 % TOP QHS FOR 14 DAYS STARTING 11/26/18 L.acidoph/L.bulg/B.bif/S.therm (Bacid Caplet) 1 Tab Tab, 1 TAB PO BID Lactulose (Lactulose) 10 Gm/15 Ml Solution, 15 ML PO DAILY Omeprazole (Omeprazole) 20 Mg Cap, 20 MG PO DAILY Paroxetine HCl (Paxil) 40 Mg Tab, 40 MG PO QHS give with Paxil 20mg Paroxetine HCl (Paxil) 20 Mg Tab, 20 MG PO QHS give with Paxil 40mg Polyethylene Glycol 3350 (Miralax) 17 Gm Powd.pack, 17 GM PO DAILY Pravastatin Sodium (Pravastatin Sodium) 40 Mg Tab, 40 MG PO QHS Quetiapine Fumarate (Quetiapine Fumarate ER) 200 Mg Tab.er.24h, 200 MG PO QPM 1630 Sennosides/Docusate Sodium (Senna Plus Tablet) 1 Tab Tab, 1 TAB PO BID Sitagliptin Phosphate (Januvia) 25 Mg Tab, 25 MG PO QHS Scheduled PRN Bisacodyl (Bisacodyl) 10 Mg Sup, 10 MG NV DAILY PRN for CONSTIPATION ON DAY 4 WITHOUT A BM Glimepiride (Glimepiride) 1 Mg Tablet, 1 MG PO DAILY PRN for BS>160 TAKES WITH BREAKFAST OR FIRST MAIN MEAL OF DAY IF BS>160 Magnesium Hydroxide (Milk of Magnesia) 400 Mg/5 Ml Oral.susp, 30 ML PO Q3RD PRN for CONSTIPATION 3RD DAY WITH NO BM: MIXED WITH 8 OZ OF PRUNE JUICE Ondansetron HCl (Ondansetron HCl) 4 Mg Tablet, 4 MG PO Q6H PRN for NAUSEA Zinc Oxide (Desitin) 454 Gm Cream..g., 1 DOSE TOP QID PRN for RASH/ITCHING APPLY TO GROIN AREA Allergies Coded Allergies: povidone-iodine (Verified Allergy, Intermediate, Hives, 09/12/18) latex (Verified Allergy, Mild, Risk, 09/12/18) A-FIB/CHADSVASC A-FIB History Current/History of A-Fib/PAF?: No Current PO Anticoag Therapy: No BILLY OSPINA MD Dec 03, 2018 09:44
[2018-12-03] MEDS ORDERED: GLUCAGON FOR INJ 1 MG VIAL (J1610) SC PRN (13:15)
[2018-12-03] MEDS ORDERED: GLUCOSE 4 GM CHEW TABLET PO PRN (13:15)
[2018-12-03] MEDS ORDERED: DEXTROSE 50% 50 ML SYRINGE IV PRN (13:15)
[2018-12-03 13:33] VITALS: BP 122/67
[2018-12-03] MEDS: LACTOBACILLUS ACIDOPHILUS CAP (BACID) PO SCH ×3 (14:01→20:59)
[2018-12-03] MEDS: LEVEMIR (INSULIN DETEMIR) 1 UNITS/0.01ML SC SCH (14:02)
[2018-12-03] MEDS: DOXYCYCLINE HYCLATE 100 MG in D5W MINI-BAG PLUS 100 ML IV SCH (14:02)
[2018-12-03] MEDS: SITagliptin 50 MG TAB (JANUVIA) PO SCH (17:26)
[2018-12-03] MEDS: PARoxetine 20 MG TAB PO SCH (20:59)
[2018-12-03] MEDS ORDERED: HumaLOG INSULIN (NovoLOG) PER UNIT SC SCH (21:00)
[2018-12-03] MEDS ORDERED: PARoxetine 20 MG TAB PO SCH (21:00)
[2018-12-03 22:00] VITALS: BP 92/52
[2018-12-04] MEDS: DOXYCYCLINE HYCLATE 100 MG in D5W MINI-BAG PLUS 100 ML IV SCH ×2 (02:21→15:03)
[2018-12-04 06:00] VITALS: BP 125/69
[2018-12-04 06:32] LABS: HEMATOCRIT 31.9 % (42.0-52.0); MEAN CORPUSCULAR HEMOGLOBIN 29.9 pg (27.0-33.0); MEAN CORPUSCULAR VOLUME 93.5 fl (80.0-96.0); PLATELET COUNT, AUTOMATED 194 10^3/uL (150-450); RED BLOOD COUNT 3.41 10^6/uL (4.30-6.10); WHITE BLOOD COUNT 10.2 10^3/uL (4.0-10.0)
[2018-12-04 06:47] LABS: HEMOGLOBIN 10.2 g/dl (13.5-17.5)
[2018-12-04 06:58] LABS: CALCIUM LEVEL 8.4 MG/DL (8.8-10.2); CREATININE FOR GFR 1.83 MG/DL (0.70-1.30); GLOMERULAR FILTRATION RATE 37.6 (>35); POTASSIUM SERUM 4.1 MEQ/L (3.5-5.1)
[2018-12-04] MEDS: HumaLOG INSULIN (NovoLOG) PER UNIT SC SCH ×4 (07:30→17:37)
[2018-12-04] MEDS: LEVEMIR (INSULIN DETEMIR) 1 UNITS/0.01ML SC SCH (09:00)
[2018-12-04] MEDS: SENOKOT S TAB PO SCH ×2 (09:23→20:34)
[2018-12-04] MEDS: MIRALAX *UNIT DOSE* 17GM PACKET PO SCH ×2 (09:23→20:34)
[2018-12-04] MEDS: OMEPRAZOLE 20 MG CAP PO SCH (09:23)
[2018-12-04] MEDS: LACTOBACILLUS ACIDOPHILUS CAP (BACID) PO SCH ×4 (09:23→20:34)
[2018-12-04] MEDS: cefTRIAXone SOD 2 GM in D5W MINI-BAG PLUS 50 ML IV SCH (09:23)
--- NOTE | 2018-12-04 12:30 | IPNPDOC ---
Date Seen The patient was seen on 12/04/18. Progress Note Subjective: "I'm alright." Pt was sitting in bed eating his eggs and muffin. No fever or chills overnight.no c/o nausea, abd pain, vomiting, dysuria. on Iv zosyn for UTI. no recurrent diarrhea. CT abd: constipation. bowel in hernia. Per Dr. Cabrera in the ER-no NG tube unless pt is aspirating. Objective: PHYSICAL EXAMINATION: Vitals: (see below) General: AAOx 3. No acute distress, no use of accessory respiratory muscles HEENT: Normocephalic, atraumatic. Moist mucous membranes.anicteric no jaundice Neck: No JVD or lymphadenopathy Cardiac: RRR, No murmurs Pulm: Clear to auscultation b/l. No wheezing, crackles, rhonchi Abd: Soft, non-tender, non-distended, no guarding, rebound tenderness, or r igidity. BSx4. Ileal conduit with bladder bag present with no signs of drainage or infection.. Ext:no pitting edema or cyanosis LABORATORY DATA, IMAGING STUDIES, MICROBIOLOGY: Please see below. Assessment and plan: 83-year-old male past medical history of mental retardation, hypertension, diabetes, chronic kidney disease baseline 1.5, recurrent UTIs, right LE DVT, and ilial conduit with urinary diversion presenting with bilateral lower extremity weakness since Sunday, but worse this morning with accompanying nausea, nonbilious nonprojectile vomiting, loose stools x 1. He has been in his usual state of health until Sunday when he c/o "feeling full" with decreased oral intake over the weekend, stayed in bed all day on Sunday, and increased weakness of his legs and was found to be "lifeless" this morning after an episode of nonbloody nonmucusy watery diarrhea . No fever, cough, or sob. denies any weight loss. Per [facility] staff, pt is given 16 ounces of liquids with meals and 8 oz in between which the patient has been taking, aside from recent vomiting. no other sick contacts. no changes in medications. SEPSIS due to UTI with h/o ileal conduit urinary diversion -History of bladder and prostate cancer status post radical cystectomy, prostatectomy Intracorporeal ileal conduit urinary diversion Obtaining blood cultures 2, urine cultures. Chest x-ray negative for any acute findings, likely source of infection is patient's UTI -received invanz in ER. -pt has h/o E. coli, mrsa, enteroccoccus from previous urine cx -continue on iv ceftriaxone and doxycycline -await culture results. UTI SEPSIS due to UTI with h/o ileal conduit urinary diversion -History of bladder and prostate cancer status post radical cystectomy, prostatectomy Intracorporeal ileal conduit urinary diversion Obtaining blood cultures 2, urine cultures. Chest x-ray negative for any acute findings, likely source of infection is patient's UTI -received invanz in ER. -pt has h/o E. coli, mrsa, enteroccoccus from previous urine cx -continue on iv ceftriaxone and doxycycline -await culture results. Normocytic Anemia Will continue to monitor, patient has chronic anemia at baseline CAD Continue pravastatin GERD - Continue omeprazole .Depression Continue Seroquel and Paxil large hiatal hernia -symptomatic care -defer to pcp if surgical referral is requested by pt and family Diarrhea -most likely leakage from chronic constipation -check gi panel VS, I&O, 24H, Fishbone Vital Signs/I&O Vital Signs Date Time Temp Pulse Resp B/P (MAP) Pulse Ox O2 Delivery O2 Flow Rate FiO2 12/04/18 06:00 98.3 72 18 125/69 (87) 95 12/03/18 13:15 Room Air I&O- Last 24 Hours up to 6 AM 12/04/18 06:00 Intake Total 3650 ml Output Total 850 ml Balance 2800 ml Laboratory Data 24H LABS Laboratory Tests 2 12/03/18 10:55: Lactic Acid Followup at 4 Hours 1.4 12/03/18 13:52: Bedside Glucose (Misc Panel) 216H 12/03/18 16:26: Bedside Glucose (Misc Panel) 248H 12/03/18 19:55: Bedside Glucose (Misc Panel) 186H 12/04/18 06:02: Nucleated Red Blood Cells % (auto) 0.0, Anion Gap 6L, Glomerular Filtration Rate 37.6, Blood Urea Nitrogen 55H, Creatinine 1.83H, Sodium Level 143, Potassium Level 4.1, Chloride Level 115H, Carbon Dioxide Level 22, Calcium Level 8.4L 12/04/18 06:30: Bedside Glucose (Misc Panel) 90 CBC/BMP Laboratory Tests 12/04/18 06:02 Red Blood Count 3.41 L, Mean Corpuscular Volume 93.5, Mean Corpuscular Hemoglobin 29.9, Mean Corpuscular Hemoglobin Concent 32.0, Red Cell Distribution Width 14.6 H, Calcium Level 8.4 L Microbiology Microbiology 12/03/18 Blood Culture - Preliminary, Resulted No growth after 24 hours . All specim... 12/03/18 Blood Culture - Preliminary, Resulted No growth after 24 hours . All specim... 12/03/18 Urine Culture, Received Pending BILLY OSPINA MD Dec 04, 2018 08:39
[2018-12-04 14:00] VITALS: BP 139/69
[2018-12-04] MEDS ORDERED: ENOXAPARIN 30 MG/0.3 ML SYR (J1650) SC ONE (15:15)
[2018-12-04] MEDS: SITagliptin 50 MG TAB (JANUVIA) PO SCH (17:35)
[2018-12-04] MEDS: PARoxetine 20 MG TAB PO SCH (20:34)
[2018-12-04 22:00] VITALS: BP 146/67
[2018-12-05] MEDS: HumaLOG INSULIN (NovoLOG) PER UNIT SC SCH ×3 (00:56→12:10)
[2018-12-05] MEDS: DOXYCYCLINE HYCLATE 100 MG in D5W MINI-BAG PLUS 100 ML IV SCH (01:30)
[2018-12-05 06:00] VITALS: BP 124/64
[2018-12-05] MEDS ORDERED: LevoFLOXacin 250 MG TABLET PO SCH (06:00)
[2018-12-05] MEDS: OMEPRAZOLE 20 MG CAP PO SCH (08:44)
[2018-12-05] MEDS: SENOKOT S TAB PO SCH (08:44)
[2018-12-05] MEDS: MIRALAX *UNIT DOSE* 17GM PACKET PO SCH (08:44)
[2018-12-05] MEDS: LACTOBACILLUS ACIDOPHILUS CAP (BACID) PO SCH ×2 (08:44→12:10)
[2018-12-05] MEDS: cefTRIAXone SOD 2 GM in D5W MINI-BAG PLUS 50 ML IV SCH (08:45)
[2018-12-05] MEDS: LEVEMIR (INSULIN DETEMIR) 1 UNITS/0.01ML SC SCH (08:45)
[2018-12-05] MEDS ORDERED: ENOXAPARIN 30 MG/0.3 ML SYR (J1650) SC SCH (09:00)
[2018-12-05 09:50] LABS: BASO % 0.6 % (0.0-1.0); EOS # 0.1 10^3/uL (0.0-0.50); EOS % 1.9 % (0.0-3.0); HEMATOCRIT 33.1 % (42.0-52.0); HEMOGLOBIN 10.7 g/dl (13.5-17.5); LYMPH # 0.6 10^3/uL (1.5-4.5); LYMPH % 8.1 % (24.0-44.0); MEAN CORPUSCULAR HEMOGLOBIN 31.1 pg (27.0-33.0); MEAN CORPUSCULAR HGB CONC 32.3 g/dl (32.0-36.5); MEAN CORPUSCULAR VOLUME 96.2 fl (80.0-96.0); MONO # 0.7 10^3/uL (0.0-0.8); MONO % 9.9 % (0.0-5.0); NEUTROPHILS # 5.4 10^3/uL (1.8-7.7); NEUTROPHILS % 79.1 % (36.0-66.0); PLATELET COUNT, AUTOMATED 198 10^3/uL (150-450); RED BLOOD COUNT 3.44 10^6/uL (4.30-6.10); WHITE BLOOD COUNT 6.9 10^3/uL (4.0-10.0)
[2018-12-05 10:10] LABS: ERYTHROCYTE SEDIMENTATION RATE 45 mm/hr (0-30)
[2018-12-05 10:27] LABS: C REACTIVE PROTEIN QUANTITATIV 4.55 MG/DL (0.00-0.30); CALCIUM LEVEL 8.4 MG/DL (8.8-10.2); CREATININE FOR GFR 1.63 MG/DL (0.70-1.30); POTASSIUM SERUM 3.9 MEQ/L (3.5-5.1)
--- NOTE | 2018-12-05 10:34 | IPNPDOC ---
Date Seen The patient was seen on 12/05/18. Progress Note Subjective: Lost iv access today. He is afebrile, no chills. slightly irritable due to iv site attempts. Urine cx: reviewed and sensitive to levaquin po. Objective: PHYSICAL EXAMINATION: Vitals: (see below) General: AAOx 3. No acute distress, no use of accessory respiratory muscles HEENT: Normocephalic, atraumatic. Moist mucous membranes.anicteric no jaundice Neck: No JVD or lymphadenopathy Cardiac: RRR, No murmurs Pulm: Clear to auscultation b/l. No wheezing, crackles, rhonchi Abd: Soft, non-tender, non-distended, no guarding, rebound tenderness, or rigidity. BSx4. Ileal conduit with bladder bag present with no signs of drainage or infection.. Ext:no pitting edema or cyanosis LABORATORY DATA, IMAGING STUDIES, MICROBIOLOGY: Please see below. Assessment and plan: 83-year-old male past medical history of mental retardation, hypertension, diabetes, chronic kidney disease baseline 1.5, recurrent UTIs, right LE DVT, and ilial conduit with urinary diversion presenting with bilateral lower extremity weakness since Sunday, but worse this morning with accompanying nausea, nonbilious nonprojectile vomiting, loose stools x 1. He has been in his usual state of health until Sunday when he c/o "feeling full" with decreased oral intake over the weekend, stayed in bed all day on Sunday, and increased weakness of his legs and was found to be "lifeless" this morning after an episode of nonbloody nonmucusy watery diarrhea . No fever, cough, or sob. denies any weight loss. Per [facility] staff, pt is given 16 ounces of liquids with meals and 8 oz in between which the patient has been taking, aside from recent vomiting. no other sick contacts. no changes in medications. SEPSIS due to UTI with h/o ileal conduit urinary diversion -History of bladder and prostate cancer status post radical cystectomy, prostatectomy Intracorporeal ileal conduit urinary diversion Obtaining blood cultures 2, urine cultures. Chest x-ray negative for any acute findings, likely source of infection is patient's UTI -received invanz in ER. -pt has h/o E. coli, mrsa, enteroccoccus from previous urine cx -s/p iv doxycycline -discontinued ceftriaxone. renally dosed levaquin UTI SEPSIS due to UTI with h/o ileal conduit urinary diversion -History of bladder and prostate cancer status post radical cystectomy, prostatectomy Intracorporeal ileal conduit urinary diversion Obtaining blood cultures 2, urine cultures. Chest x-ray negative for any acute findings, likely source of infection is patient's UTI -received invanz in ER. -pt has h/o E. coli, mrsa, enteroccoccus from previous urine cx -s/p iv doxycycline -discontinued ceftriaxone. renally dosed levaquin Normocytic Anemia Will continue to monitor, patient has chronic anemia at baseline CAD Continue pravastatin GERD - Continue omeprazole .Depression Continue Seroquel and Paxil large hiatal hernia -symptomatic care -defer to pcp if surgical referral is requested by pt and family Diarrhea -most likely leakage from chronic constipation -check gi panel disposition: stable for discharge. no need to obtain iv access. VS, I&O, 24H, Fishbone Vital Signs/I&O Vital Signs Date Time Temp Pulse Resp B/P (MAP) Pulse Ox O2 Delivery O2 Flow Rate FiO2 12/05/18 06:00 97.7 68 17 124/64 (84) 93 12/03/18 13:15 Room Air I&O- Last 24 Hours up to 6 AM 12/05/18 06:00 Intake Total 1482 ml Output Total 2775 ml Balance -1293 ml Laboratory Data 24H LABS Laboratory Tests 2 12/04/18 11:26: Bedside Glucose (Misc Panel) 169H 12/04/18 16:41: Bedside Glucose (Misc Panel) 174H 12/05/18 00:20: Bedside Glucose (Misc Panel) 160H 12/05/18 06:24: Bedside Glucose (Misc Panel) 160H 12/05/18 09:29: Immature Granulocyte % (Auto) 0.4, White Blood Count 6.9, Red Blood Count 3.44L, Hemoglobin 10.7L, Hematocrit 33.1L, Mean Corpuscular Volume 96.2H, Mean Corpuscular Hemoglobin 31.1, Mean Corpuscular Hemoglobin Concent 32.3, Red Cell Distribution Width 14.6H, Platelet Count 198, Neutrophils (%) (Auto) 79.1H, Lymphocytes (%) (Auto) 8.1L, Monocytes (%) (Auto) 9.9H, Eosinophils (%) (Auto) 1.9, Basophils (%) (Auto) 0.6, Neutrophils # (Auto) 5.4, Lymphocytes # (Auto) 0.6L, Monocytes # (Auto) 0.7, Eosinophils # (Auto) 0.1, Basophils # (Auto) 0.0, Nucleated Red Blood Cells % (auto) 0.0, Erythrocyte Sedimentation Rate 45H, Anion Gap 4L, Glomerular Filtration Rate 43.0, Blood Urea Nitrogen 40H, Creatinine 1.63H, Sodium Level 142, Potassium Level 3.9, Chloride Level 114H, Carbon Dioxide Level 24, Calcium Level 8.4L, C-Reactive Protein, Quantitative 4.55H CBC/BMP Laboratory Tests 12/05/18 09:29 Red Blood Count 3.44 L, Mean Corpuscular Volume 96.2 H, Mean Corpuscular Hemoglobin 31.1, Mean Corpuscular Hemoglobin Concent 32.3, Red Cell Distribution Width 14.6 H, Neutrophils (%) (Auto) 79.1 H, Lymphocytes (%) (Auto) 8.1 L, Monocytes (%) (Auto) 9.9 H, Eosinophils (%) (Auto) 1.9, Basophils (%) (Auto) 0.6, Neutrophils # (Auto) 5.4, Lymphocytes # (Auto) 0.6 L, Monocytes # (Auto) 0.7, Eosinophils # (Auto) 0.1, Basophils # (Auto) 0.0, Calcium Level 8.4 L Microbiology Microbiology 12/03/18 Blood Culture - Preliminary, Resulted No Growth after 48 hours. All Specime... 12/03/18 Blood Culture - Preliminary, Resulted No Growth after 48 hours. All Specime... 12/03/18 Urine Culture - Final, Complete Escherichia Coli BILLY OSPINA MD Dec 05, 2018 10:34
[2018-12-05] MEDS ORDERED: LEVO250T12 PO (10:36)
--- NOTE | 2018-12-09 13:27 | DS.PDOC ---
Discharge Summary General Date of Admission Dec 03, 2018 at 09:44 Date of Discharge December 05, 2018 Discharge Summary Discharge Diagnoses SEPSIS due to UTI with h/o ileal conduit urinary diversion History of bladder and prostate cancer status post radical cystectomy, prostatectomy Intracorporeal ileal conduit urinary diversion Normocytic Anemia CAD GERD .Depression large hiatal hernia Diarrhea Discharge Medications; pls see below History of Presenting Illness: Assessment and plan: 83-year-old male past medical history of mental retardation, hypertension, diabetes, chronic kidney disease baseline 1.5, recurrent UTIs, right LE DVT, and ilial conduit with urinary diversion presenting with bilateral lower extremity weakness since Sunday, but worse this morning with accompanying nausea, nonbilious nonprojectile vomiting, loose stools x 1. He has been in his usual state of health until Sunday when he c/o "feeling full" with decreased oral intake over the weekend, stayed in bed all day on Sunday, and increased weakness of his legs and was found to be "lifeless" this morning after an episode of nonbloody nonmucusy watery diarrhea . No fever, cough, or sob. denies any weight loss. Per [facility] staff, pt is given 16 ounces of liquids with meals and 8 oz in between which the patient has been taking, aside from recent vomiting. no other sick contacts. no changes in medications. Hospital Course SEPSIS due to UTI with h/o ileal conduit urinary diversion -History of bladder and prostate cancer status post radical cystectomy, prostatectomy Intracorporeal ileal conduit urinary diversion Obtaining blood cultures 2, urine cultures. Chest x-ray negative for any acute findings, likely source of infection is patient's UTI -received invanz in ER. -pt has h/o E. coli, mrsa, enteroccoccus from previous urine cx -s/p iv doxycycline -discontinued ceftriaxone. renally dosed levaquin UTI SEPSIS due to UTI with h/o ileal conduit urinary diversion -History of bladder and prostate cancer status post radical cystectomy, prostatectomy Intracorporeal ileal conduit urinary diversion Obtaining blood cultures 2, urine cultures. Chest x-ray negative for any acute findings, likely source of infection is patient's UTI -received invanz in ER. -pt has h/o E. coli, mrsa, enteroccoccus from previous urine cx -s/p iv doxycycline -discontinued ceftriaxone. renally dosed levaquin Normocytic Anemia Will continue to monitor, patient has chronic anemia at baseline CAD Continue pravastatin GERD - Continue omeprazole .Depression Continue Seroquel and Paxil large hiatal hernia -symptomatic care -defer to pcp if surgical referral is requested by pt and family Diarrhea -most likely leakage from chronic constipation -neg gi panel disposition: stable for discharge. no need to obtain iv access. PHYSICAL EXAMINATION: Vitals: (see below) General: AAOx 3. No acute distress, no use of accessory respiratory muscles HEENT: Normocephalic, atraumatic. Moist mucous membranes.anicteric no jaundice Neck: No JVD or lymphadenopathy Cardiac: RRR, No murmurs Pulm: Clear to auscultation b/l. No wheezing, crackles, rhonchi Abd: Soft, non-tender, non-distended, no guarding, rebound tenderness, or rigidity. BSx4. Ileal conduit with bladder bag present with no signs of drainage or infection.. Ext:no pitting edema or cyanosis LABORATORY DATA, IMAGING STUDIES, MICROBIOLOGY: Please see below. Time spent on hospital discharge: 32 min Vital Signs/I&Os Vital Signs Date Time Temp Pulse Resp B/P (MAP) Pulse Ox O2 Delivery O2 Flow Rate FiO2 12/05/18 06:00 97.7 68 17 124/64 (84) 93 12/03/18 13:15 Room Air Microbiology Microbiology 12/03/18 Blood Culture - Final, Complete NO GROWTH AFTER 5 DAYS 12/03/18 Blood Culture - Final, Complete NO GROWTH AFTER 5 DAYS 12/03/18 Urine Culture - Final, Complete Escherichia Coli Discharge Medications Scheduled Ascorbic Acid (Vitamin C) 250 Mg Tab.chew, 250 MG PO BID, (Reported) Calcium Carbonate/Vitamin D3 (Calcium 500-Vit D3 200 Tablet) 1 Each Tablet, 1 TAB PO BID, (Reported) Carbamide Peroxide (Debrox) 15 Ml Drops, 1 DROP AU 2XWK, (Reported) SUNDAY AND SUNDAY AT [facility] Docusate Sodium (Colace) 100 Mg Cap, 100 MG PO BID, (Reported) Ferrous Sulfate (Ferrous Sulfate) 325 Mg Tab, 325 MG PO BID, (Reported) Fluconazole (Fluconazole) 150 Mg Tablet, 150 MG PO QWEEK, (Reported) FOR 14 DAYS STARTING 11/26/18 Insulin Detemir (Levemir) 1 Units/0.01 Ml Susp, 18 UNITS SC DAILY, (Reported) Ketoconazole (Ketoconazole) 15 Gm Cream..g., 2 % TOP QHS, (Reported) FOR 14 DAYS STARTING 11/26/18 L.acidoph/L.bulg/B.bif/S.therm (Bacid Caplet) 1 Tab Tab, 1 TAB PO BID, (Reported) Lactulose (Lactulose) 10 Gm/15 Ml Solution, 15 ML PO DAILY, (Reported) Levofloxacin (Levofloxacin) 250 Mg Tablet, 250 MG PO DAILY@06 Omeprazole (Omeprazole) 20 Mg Cap, 20 MG PO DAILY, (Reported) Paroxetine HCl (Paxil) 40 Mg Tab, 40 MG PO QHS, (Reported) give with Paxil 20mg Paroxetine HCl (Paxil) 20 Mg Tab, 20 MG PO QHS, (Reported) give with Paxil 40mg Polyethylene Glycol 3350 (Miralax) 17 Gm Powd.pack, 17 GM PO DAILY, (Reported) Pravastatin Sodium (Pravastatin Sodium) 40 Mg Tab, 40 MG PO QHS, (Reported) Quetiapine Fumarate (Quetiapine Fumarate ER) 200 Mg Tab.er.24h, 200 MG PO QPM, (Reported) 1630 Sennosides/Docusate Sodium (Senna Plus Tablet) 1 Tab Tab, 1 TAB PO BID, (Reported) Sitagliptin Phosphate (Januvia) 25 Mg Tab, 25 MG PO QHS, (Reported) Scheduled PRN Bisacodyl (Bisacodyl) 10 Mg Sup, 10 MG NM DAILY PRN for CONSTIPATION, (Reported) ON DAY 4 WITHOUT A BM Glimepiride (Glimepiride) 1 Mg Tablet, 1 MG PO DAILY PRN for BS>160, (Reported) TAKES WITH BREAKFAST OR FIRST MAIN MEAL OF DAY IF BS>160 Magnesium Hydroxide (Milk of Magnesia) 400 Mg/5 Ml Oral.susp, 30 ML PO Q3RD PRN for CONSTIPATION, (Reported) 3RD DAY WITH NO BM: MIXED WITH 8 OZ OF PRUNE JUICE Ondansetron HCl (Ondansetron HCl) 4 Mg Tablet, 4 MG PO Q6H PRN for NAUSEA, (Reported) Zinc Oxide (Desitin) 454 Gm Cream..g., 1 DOSE TOP QID PRN for RASH/ITCHING, (Reported) APPLY TO GROIN AREA Allergies Coded Allergies: povidone-iodine (Verified Allergy, Intermediate, Hives, 4/4/19) latex (Verified Allergy, Mild, Risk, 09/12/18) BILLY OSPINA MD Dec 09, 2018 13:27
== END 2018-12-05 14:10 | disposition home or self-care (01) | DRG 872 ==
LOC: M ED 06:02 → M ED INP 09:44 → M MSPAV 13:34
PROVIDERS: ADMIT General Practice; ATTEND General Practice
DX: A41.9 Sepsis, unspecified organism (principal); N39.0 Urinary tract infection, site not specified; I50.32 Chronic diastolic (congestive) heart failure; R65.20 Severe sepsis without septic shock; I25.10 Atherosclerotic heart disease of native coronary artery without angina pectoris; R19.7 Diarrhea, unspecified; K44.9 Diaphragmatic hernia without obstruction or gangrene; F32.9 Major depressive disorder, single episode, unspecified; K21.9 Gastro-esophageal reflux disease without esophagitis; D64.9 Anemia, unspecified; F79 Unspecified intellectual disabilities; N18.9 Chronic kidney disease, unspecified; Z85.51 Personal history of malignant neoplasm of bladder; Z85.46 Personal history of malignant neoplasm of prostate; B96.29 Other Escherichia coli [E. coli] as the cause of diseases classified elsewhere; I25.2 Old myocardial infarction

== ENCOUNTER 2018-12-27 03:24 | Inpatient (IN) | payer MEDICARE, MEDICAID ==
[~2018-12-27] VITALS: Ht 167.6 cm; Wt 67.4 kg
[~2018-12-27 03:24] MED LIST changes: +CALC500T44 PO; +DESI13CR2 TOP; +FLUC150T PO; +GLIM1TAB PO; +KETO2CR TOP; +LEVO250T12 PO; +MILKSUS3 PO; +MIRA1POW3 PO; -OMEP20CA3 PO; +OMEP20CA4 PO; +ONDA4TAB5 PO; +QUET200T54 PO; +[UNRECOGNIZED DRUG - CODE] PO
[2018-12-27 04:48] LABS: BASO % 0.2 % (0.0-1.0); EOS % 0.1 % (0.0-3.0); HEMATOCRIT 33.8 % (42.0-52.0); HEMOGLOBIN 10.8 g/dl (13.5-17.5); LYMPH # 0.3 10^3/uL (1.5-4.5); LYMPH % 3.7 % (24.0-44.0); MEAN CORPUSCULAR HEMOGLOBIN 30.9 pg (27.0-33.0); MEAN CORPUSCULAR VOLUME 96.8 fl (80.0-96.0); MONO # 0.5 10^3/uL (0.0-0.8); MONO % 5.4 % (0.0-5.0); NEUTROPHILS # 7.6 10^3/uL (1.8-7.7); NEUTROPHILS % 89.9 % (36.0-66.0); PLATELET COUNT, AUTOMATED 180 10^3/uL (150-450); RED BLOOD COUNT 3.49 10^6/uL (4.30-6.10); WHITE BLOOD COUNT 8.5 10^3/uL (4.0-10.0)
[2018-12-27 04:56] LABS: INR 1.14; PROTHROMBIN TIME 14.3 SECONDS (11.8-14.0)
[2018-12-27 04:57] LABS: PARTIAL THROMBOPLASTIN TIME 30.9 SECONDS (25.0-38.4)
[2018-12-27 05:10] LABS: ALBUMIN 2.5 GM/DL (3.2-5.2); BILIRUBIN,DIRECT 0.1 MG/DL (0.0-0.2); BILIRUBIN,TOTAL 0.3 MG/DL (0.2-1.0); CALCIUM LEVEL 8.6 MG/DL (8.8-10.2); CREATININE FOR GFR 2.03 MG/DL (0.70-1.30); GLOMERULAR FILTRATION RATE 33.4 (>35); POTASSIUM SERUM 4.5 MEQ/L (3.5-5.1); TOTAL PROTEIN 6.5 GM/DL (6.4-8.2)
[2018-12-27 08:09] LABS: HEMATOCRIT 36.4 % (42.0-52.0); HEMOGLOBIN 11.9 g/dl (13.5-17.5); MEAN CORPUSCULAR HEMOGLOBIN 30.2 pg (27.0-33.0); MEAN CORPUSCULAR HGB CONC 32.7 g/dl (32.0-36.5); MEAN CORPUSCULAR VOLUME 92.4 fl (80.0-96.0); PLATELET COUNT, AUTOMATED 223 10^3/uL (150-450); RED BLOOD COUNT 3.94 10^6/uL (4.30-6.10); WHITE BLOOD COUNT 13.9 10^3/uL (4.0-10.0)
[2018-12-27] MEDS ORDERED: ONDANSETRON 4MG/2ML VIAL (J2405) IV ONE (10:45)
[2018-12-27] MEDS ORDERED: PIPERACILLIN/TAZOBACTAM SOD 3.375 GM in D5W MINI-BAG PLUS 50 ML IV ONE (12:15)
[2018-12-27] MEDS ORDERED: NS 1,000 ML IV ONE (12:30)
--- NOTE | 2018-12-27 12:36 | REP ---
CT CHEST WITHOUT IV CONTRAST: CT chest performed without IV contrast. Sagittal and coronal reconstruction images are performed. Comparison is made with a prior study of 03/20/2018. There is a very small amount of fluid in the superior right major fissure. There is underlying mild interstitial fibrosis. There are increased patchy parenchymal opacities in both lung bases, mostly in the lingula. These have increased since prior study and are most consistent with increased atelectasis and/or infiltrate. Two calcified granulomas are seen superiorly in the right lung. Heart does not appear to be significantly enlarged. There is no pericardial effusion. No gross adenopathy is seen in the mediastinum or in either axilla. The esophagus is moderately distended with air and fluid and there is a large hiatal hernia. There are degenerative changes of the spine with accentuation of thoracic kyphosis, with no evidence of a compression fracture. IMPRESSION: Patchy bibasilar infiltrates/atelectasis, greatest in the lingula, increased since prior study of 03/20/2018. Electronically Signed by Dmitri Islas MD 12/29/2018 07:24 P
[2018-12-27] MEDS ORDERED: NS 1,000 ML IV SCH (12:45)
--- NOTE | 2018-12-27 12:55 | REP ---
CT ABDOMEN AND PELVIS WITHOUT CONTRAST: CT abdomen and pelvis is performed without oral or IV contrast. Sagittal and coronal reconstruction images are performed. Comparison is made with a prior study of 12/03/2018. There is a large amount of fecal material again seen throughout the colon. There is moderate dilatation of the stomach filled with air and fluid. There is moderate to severe dilatation of small bowel diffusely. In the left lower quadrant there is mesenteric twisting with a point of small bowel obstruction noted. A significantly dilated small bowel loop has an abrupt transition to collapsed caliber with a beaked appearance to the loop. More inferiorly there is a left inguinal hernia which contains a bowel loop. There is fluid in the hernia sac with diffuse edema. A dilated small bowel leads into the hernia sac. This likely represents a second point of small bowel obstruction. Given the findings in the hernia sac the hernia may be strangulated. I do not see significant free air or free fluid in the abdomen or pelvis. There is no mesenteric edema. Liver again demonstrates a few small cysts. The spleen, adrenals, and pancreas are grossly unchanged. There is moderately severe bilateral hydronephrosis which has increased since prior study. There is no abdominal aortic aneurysm. No periaortic adenopathy is seen. An IVC filter is present. The patient has had a prior cholecystectomy. Ostomy is again seen in the right lower quadrant abdominal wall. There is a possible right pelvic mass with obliteration of fat planes along the right pelvic sidewall. However, this area is not well evaluated due to the lack of oral and IV contrast. There are degenerative changes of the spine. IMPRESSION: High grade small bowel obstruction caused by mesenteric twisting in the left lower quadrant. More inferiorly a left inguinal hernia is again seen containing small bowel. A significantly dilated small bowel loop leads into the hernia sac. This likely represents a second point of small bowel obstruction. There is fluid and edema in the hernia sac with possible strangulation. Moderately severe bilateral hydronephrosis has increased since prior study of 12/03/2018. Possible right pelvic mass, not well evaluated due to the lack of oral and IV contrast. Estimated diameter of the mass 5 cm. Electronically Signed by Dmitri Islas MD 12/29/2018 07:25 P
--- NOTE | 2018-12-27 13:44 | CR.PDOC ---
General Surgery Consultation Date of Consultation 12/27/18 History and Physical CONSULT REPORT FOR: emergency room physician/hospitalist service REASON FOR CONSULTATION: Vomiting, left inguinal hernia, possible bowel obstruction HISTORY OF PRESENT ILLNESS: Mr. Recio is an 83-year-old gentleman, resident at [facility] was brought in early in the morning for complaints of vomiting at least 3 times. He was in his usual state of health prior to the episode. No intervening abdominal discomfort. No reported sick contacts. He reportedly vomited some brown colored material twice yesterday and was early this morning. They were concerned about possibility of gastrointestinal bleed.. He seems to be aware of what's going on any does answer to simple yes or no questions. He denies any ongoing abdominal, or inguinal discomfort. He has large inguinal hernia that has been there for several years now. No previous repairs done. He denies any disco mfort with this. The person accompanying him from [facility] reports this is mostly protruding out. It looks like he was seen by Dr. Guzmán our office sometime last November for possible hernia. At that time patient opts to not to have the hernia repaired at that time. He also has a known history of a large hiatal hernia containing stomach. He is denying any chest pains. He is noted to have some desaturations requiring oxygenation and his treating physician is suspecting possibility of aspiration pneumonia with presence of lung infiltrates. No fevers or chills reported or episodes of hypotension. He was here back on December 03 until 12/05/2018 for what looks like a urinary tract infection. He does have a significant history for bladder cancer for which he had a radical cystectomy performed with an ileal conduit. He has a history of constipation requiring regular use of laxatives since last year. He reportedly moves his bowels every 2-3 days. Unknown when his last bowel movement has been. PAST MEDICAL HISTORY: 1. Mental retardation 2. Hypertension 3. Diabetes 4. Chronic kidney disease 5. Diastolic congestive heart failure 6. Known history of a large hiatal hernia 7. Known history of a large inguinal hernia 8. Coronary artery disease status post [place] and cardiac catheterization. PAST SURGICAL HISTORY: INCLUDES: 1. Robotic-assisted radical cystectomy, prostatectomy with ileal conduit 2. Open cholecystectomy 3. Insertion of vena cava filter ALLERGIES: Please see below. HOME MEDICATIONS: Please see below. REVIEW OF SYSTEMS: GENERAL: The reported episodes of fevers, chills. He had a recent admission for urinary tract infection in the end of November. HEENT: Denies sore throat, ear pain. NECK: Denies any neck pain CARDIOVASCULAR: Denies chest pain and palpitations. NEUROLOGIC: Denies headache, stroke. PSYCHIATRIC: Denies anxiety and depression. HEMATOLOGY/ONCOLOGY: Patient has a known history of DVT, PE. He is currently not on any anticoagulation. It looks like he has a vena cava filter in place. HEART: Denies any chest pains, palpitations, paroxysmal dyspnea, orthopnea. PULMONARY: Mild productive cough reported GASTROINTESTINAL: See HPI. GENITOURINARY: Patient with a urostomy, ileal conduit in the right side of the abdomen. ENDOCRINE: Patient known diabetes INFECTIOUS: Recently and UTI. NUTRITION: Reports fair appetite. PHYSICAL EXAMINATION: VITALS SIGNS: Please see below. GENERAL APPEARANCE: The time that I saw the patient, he had a facemask for oxygenation. He looks comfortable. He is wide awake. He does answer yes or no questions and answer seems to be appropriate. He is overall fairly cooperative though sometimes he makes snide comments to leave him alone. Overall thin body habitus SKIN: Warm and dry. HEENT: Mild pale palpebral conjunctiva.. NECK: Supple, no thyromegaly. No obvious jugular venous distention. LUNGS: Mild scattered rales, no wheezing. HEART: No chest wall abnormalities. Regular rate and rhythm with no murmurs appreciated. ABDOMEN: Abdomen is round, soft, moderately distended and tympanitic to percussion. I appreciated a right subcostal incision from his cholecystectomy, no associated hernia. He has a right lower quadrant ileal conduit urostomy bag urine looks clear light yellow in appearance. Several other port sites. He has large inguinal scrotal hernia. This is a normal overlying skin and scrotum. I could only partially reduced this and this goes back out. Seems to be able to slide fairly easily through the external ring. Patient has no discomfort with manipulation of the area. EXTREMITIES: I did not is any deformities ANCILLARIES: . since LABORATORY DATA: Please see below. IMAGING STUDIES: . CT scan abdomen and pelvis High grade small bowel obstruction caused by mesenteric twisting in the left lower quadrant. More inferiorly a left inguinal hernia is again seen containing small bowel. A significantly dilated small bowel loop leads into the hernia sac. This likely represents a second point of small bowel obstruction. There is fluid and edema in the hernia sac with possible strangulation. Moderately severe bilateral hydronephrosis has increased since prior study of 12/03/2018. Possible right pelvic mass, not well evaluated due to the lack of oral and IV contrast. Estimated diameter of the mass [address] chest Patchy bibasilar infiltrates/atelectasis, greatest in the lingula, increased since prior study of 03/20/2018. IMPRESSION AND PLAN: vomiting large hiatal hernia constipation ?ileus vs sbo large small bowel containing inguinal hernia possible aspiration from vomiting. He looks to have a very distended abdomen though he is not noticeably uncomfortable despite this degree of distention. I noticed also some occasional burping. He has a non-reducible left inguinal hernia that probably is more p rominent than usual because of the abdominal distention. I don't think this is strangulated or incarcerated in that he is fairly comfortable on my manipulation though because of the degree of the abdominal distention I am not able to reduce this fully into the abdomen. For someone with possible while suctioning looks very comfortable. He has been vomiting though the last episode of vomiting was early this morning. Looking at his studies he has a large hiatal hernia containing stomach and stomach is distended. This does not seem to be twisted. I think he will benefit from nasogastric tube decompression of both the stomach as well as the distended small bowel. I have suspicion if we are able to decompress his abdomen that the inguinal hernia will self reduce. I'm not sure of what the nature is of the abdominal distention whether this is bowel obstruction or ileus. The radiologist read the CT scan has a high-grade bowel obstruction. In reviewing his CT he seems to have a transition point at the mid lower abdomen below the umbilicus where the radiologist notes the twist in the mesentery. In terms of the bowel obstruction he does not look uncomfortable and on reviewing his labs, imaging as well as correlating this with my examination I don't think he has any threatened bowel at this point. He seems to have had some aspiration as he has some desaturations so I think it is reasonable to admit him and watch him closely. I will serially examine him. He may or may not need surgery related to his bowel obstruction. I inquired about who makes decisions for him and it seems like he has a niece locally though [facility] has power of privacy attorney to make decisions for himself in case we needed urgent or emergent surgery, it looks like [facility] will be able to provide consent for us. suggest placing ngt The inguinal hernia does not look to be acutely incarcarated but the ongoing abdominal distention seems to be pushing it out more He has a large hiatal hernia containing fluid filled stomach also more prominent from the bowel obstruction. He has several imaging showing constipation. His imaging studies almost similar to the one on 12/03/2018 He was previously seen with Dr. Guzmán in the office and at that time decided not to do anything with inguinal hernia. Vital Signs Vital Signs Date Time Temp Pulse Resp B/P (MAP) Pulse Ox O2 Delivery O2 Flow Rate FiO2 12/27/18 11:45 89 107/63 (78) 91 Nasal Cannula 5.0 12/27/18 07:39 97.5 12/27/18 03:36 16 Laboratory Data Labs 24H Laboratory Tests 2 12/27/18 04:37: Immature Granulocyte % (Auto) 0.7, White Blood Count 8.5, Red Blood Count 3.49L, Hemoglobin 10.8L, Hematocrit 33.8L, Mean Corpuscular Volume 96.8H, Mean Corpus cular Hemoglobin 30.9, Mean Corpuscular Hemoglobin Concent 32.0, Red Cell Distribution Width 13.8, Platelet Count 180, Neutrophils (%) (Auto) 89.9H, Lymphocytes (%) (Auto) 3.7L, Monocytes (%) (Auto) 5.4H, Eosinophils (%) (Auto) 0.1, Basophils (%) (Auto) 0.2, Neutrophils # (Auto) 7.6, Lymphocytes # (Auto) 0.3L, Monocytes # (Auto) 0.5, Eosinophils # (Auto) 0.0, Basophils # (Auto) 0.0, Nucleated Red Blood Cells % (auto) 0.0, Prothrombin Time 14.3H, Prothromb Time International Ratio 1.14, Activated Partial Thromboplast Time 30.9, Anion Gap 9, Glomerular Filtration Rate 33.4L, Calcium Level 8.6L, Aspartate Amino Transf (AST/SGOT) 17, Alanine Aminotransferase (ALT/SGPT) 9L, Alkaline Phosphatase 108, Total Bilirubin 0.3, Direct Bilirubin 0.1, Total Protein 6.5, Albumin 2.5L, Albumin/Globulin Ratio 0.63L, Lipase 176 12/27/18 07:58: Nucleated Red Blood Cells % (auto) 0.0 12/27/18 10:08: Urine Color YELLOW, Urine Appearance CLEAR, Urine pH 5.0, Urine Specific [place] 1.014, Urine Protein 1+H, Urine Glucose (UA) NEGATIVE, Urine Ketones TRACEH, Urine Blood NEGATIVE, Urine Nitrite NEGATIVE, Urine Bilirubin NEGATIVE, Urine Urobilinogen 0.2, Urine Leukocyte Esterase NEGATIVE, Urine WBC (Auto) 8H, Urine RBC (Auto) 4H, Urine Hyaline Casts (Auto) 0, Urine Bacteria (Auto) 1+H, Urine Squamous Epithelial Cells 0, Urine Sperm (Auto) 12/27/18 11:43: Lactic Acid Level 1.9 CBC/BMP Laboratory Tests 12/27/18 04:37 Red Blood Count 3.49 L, Mean Corpuscular Volume 96.8 H, Mean Corpuscular Hemoglobin 30.9, Mean Corpuscular Hemoglobin Concent 32.0, Red Cell Distribution Width 13.8, Neutrophils (%) (Auto) 89.9 H, Lymphocytes (%) (Auto) 3.7 L, Monocytes (%) (Auto) 5.4 H, Eosinophils (%) (Auto) 0.1, Basophils (%) (Auto) 0.2, Neutrophils # (Auto) 7.6, Lymphocytes # (Auto) 0.3 L, Monocytes # (Auto) 0.5, Eosinophils # (Auto) 0.0, Basophils # (Auto) 0.0 12/27/18 07:58 Red Blood Count 3.94 L, Mean Corpuscular Volume 92.4, Mean Corpuscular Hemoglobin 30.2, Mean Corpuscular Hemoglobin Concent 32.7, Red Cell Distribution Width 13.6 Microbiology Microbiology 12/27/18 Blood Culture, Received Pending 12/27/18 Blood Culture, Received Pending Home Medications Scheduled Ascorbic Acid (Vitamin C) 250 Mg Tab.chew, 250 MG PO BID, (Reported) Calcium Carbonate/Vitamin D3 (Calcium 500-Vit D3 200 Tablet) 1 Each Tablet, 1 TAB PO BID, (Reported) Carbamide Peroxide (Debrox) 15 Ml Drops, 1 DROP AU 2XWK, (Reported) SUNDAY AND SUNDAY AT [facility] Docusate Sodium (Colace) 100 Mg Cap, 100 MG PO BID, (Reported) Ferrous Sulfate (Ferrous Sulfate) 325 Mg Tab, 325 MG PO BID, (Reported) Insulin Detemir (Levemir) 1 Units/0.01 Ml Susp, 18 UNITS SC DAILY, (Reported) L.acidoph/L.bulg/B.bif/S.therm (Bacid Caplet) 1 Tab Tab, 1 TAB PO BID, (Reported) Lactulose (Lactulose) 10 Gm/15 Ml Solution, 15 ML PO DAILY, (Reported) Omeprazole (Omeprazole) 20 Mg Cap, 20 MG PO DAILY, (Reported) Paroxetine HCl (Paxil) 40 Mg Tab, 40 MG PO QHS, (Reported) TAKES WITH 20MG FOR 60MG TOTAL Paroxetine HCl (Paxil) 20 Mg Tab, 20 MG PO QHS, (Reported) TAKES WITH 40MG FOR 60MG TOTAL Polyethylene Glycol 3350 (Miralax) 17 Gm Powd.pack, 17 GM PO DAILY, (Reported) Pravastatin Sodium (Pravastatin Sodium) 40 Mg Tab, 40 MG PO QHS, (Reported) Quetiapine Fumarate (Quetiapine Fumarate ER) 200 Mg Tab.er.24h, 200 MG PO QPM, (Reported) 1630 Sennosides/Docusate Sodium (Senna Plus Tablet) 1 Tab Tab, 1 TAB PO BID, (Reported) Sitagliptin Phosphate (Januvia) 25 Mg Tab, 25 MG PO QHS, (Reported) Scheduled PRN Bisacodyl (Bisacodyl) 10 Mg Sup, 10 MG IL Q4DP PRN for CONSTIPATION, (Reported) ON DAY 4 WITHOUT A BM Glimepiride (Glimepiride) 1 Mg Tablet, 1 MG PO DAILY PRN for BS>160, (Reported) TAKES WITH BREAKFAST OR FIRST MAIN MEAL OF DAY IF BS>160 Magnesium Hydroxide (Milk of Magnesia) 400 Mg/5 Ml Oral.susp, 30 ML PO Q3RD PRN for CONSTIPATION, (Reported) 3RD DAY WITH NO BM: MIXED WITH 8 OZ OF PRUNE JUICE Ondansetron HCl (Ondansetron HCl) 4 Mg Tablet, 4 MG PO Q6H PRN for NAUSEA, (Repo rted) Zinc Oxide (Desitin) 454 Gm Cream..g., 1 DOSE TOP QID PRN for RASH/ITCHING, (Reported) APPLY TO GROIN AREA Allergies Coded Allergies: povidone-iodine (Verified Allergy, Intermediate, Hives, 09/12/18) latex (Verified Allergy, Mild, Risk, 09/12/18) RADHA LINDSEY MD Dec 27, 2018 12:55
[2018-12-27] MEDS ORDERED: ONDANSETRON 4MG/2ML VIAL (J2405) IV PRN ×2 (15:45→23:15)
--- NOTE | 2018-12-27 17:51 | SMCUROLCON ---
Urology Consultation General Date of Consultation 12/27/18 Reason For Consultation This patient is seen for Aspiration Pnemonia,Small Bowel Obstruction. History of Present Illness The patient is an 83-year-old male with developmental delay who has been followed by urology for some time. 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 He has a history of muscle invasive bladder cancer and underwent a robot-assisted radical cystectomy and creation of ileal conduit in 2017. 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 He is currently in the emergency department because he was having good deal of nausea and vomiting yesterday. He had a CT scan of the abdomen and pelvis without contrast since arriving in the emergency department which demonstrates dilated loops of small bowel consistent with a small bowel obstruction. He has a left inguinal hernia which has been known for some time as well as a hiatal hernia. He has been evaluated by the Gen. surgery service and it sounds like there is plan for NG tube decompression and conservative management without surgery for now. The CT scan also demonstrated bilateral hydroureteronephrosis down to the level of the mid ureter. Comparing to prior CT scan from about a month ago this is a new finding. The radiologist also report a possible new mass right pelvis. The patient's creatinine has also increased from about 1 to now about 2. The patient is a poor historian but does not appear to be in any significant amount of pain. Past Medical History Medical History 1. Mental retardation 2. Hypertension 3. Diabetes 4. Chronic kidney disease 5. Diastolic congestive heart failure 6. Known history of a large hiatal hernia 7. Known history of a large inguinal hernia 8. Coronary artery disease status post [place] and cardiac catheterization. 9. Bladder cancer as described above. Surgical Hstory PAST SURGICAL HISTORY: INCLUDES: 1. Robotic-assisted radical cystectomy, prostatectomy with ileal conduit 2. Open cholecystectomy 3. Insertion of vena cava filter Family History Significant Family History: No pertinent family hx Social History * Smoker: non-smoker Alcohol: Denies Drugs: denies Medications Current Medications Current Medications Dextrose/Water 1,000 ml @ 75 mls/hr [id number] IV ; Start 12/27/18 at 23:00 Heparin Sodium (Porcine) (Heparin) 5,000 units Q12H SC ; Start 12/27/18 at 21:00 Home Med (Med Rec Complete!) ASDIRECTED XX ; Start 12/27/18 at 05:00; Stop 12/27/18 at 05:00; Status DC Ondansetron HCl (ZOFRAN INJection) 4 mg Q8HP PRN IV NAUSEA OR VOMITING; Start 12/27/18 at 15:45 Paroxetine HCl (PAXil) 60 mg QHS PO ; Start 12/27/18 at 21:00 Piperacillin Sod/ Tazobactam Sod 3.375 gm/Dextrose 50 ml @ 50 mls/hr Q6H IV ; Start 12/27/18 at 18:00 Quetiapine Fumarate (SEROquel XR) 200 mg QPM@1630 PO ; Start 12/27/18 at 16:30 Sodium Chloride 1,000 ml @ 100 mls/hr Q10H IV Last administered on 12/27/18at 12:50; Start 12/27/18 at 12:45; Stop 12/27/18 at 22:44 Allergies Allergies: Coded Allergies: povidone-iodine (Verified Allergy, Intermediate, Hives, 09/12/18) latex (Verified Allergy, Mild, Risk, 09/12/18) Review of Systems General: Reports: ROS Unobtainable, Normal Appetite Psych: Reports: Mood Normal Physical Examination General Exam: Mild Distress Abdomen Exam: Hernia, Other (Mildly distended, non-tender; RLQ ileal conduit urostomy draining clear urine.) Vital Signs/I&O Vital Signs Date Time Temp Pulse Resp B/P (MAP) Pulse Ox O2 Delivery O2 Flow Rate FiO2 12/27/18 14:30 97 20 107/74 (85) 93 Venturi Mask 15.0 50 12/27/18 07:39 97.5 Laboratory Data 24H Labs Laboratory Tests 2 12/27/18 04:37: Immature Granulocyte % (Auto) 0.7, White Blood Count 8.5, Red Blood Count 3.49L, Hemoglobin 10.8L, Hematocrit 33.8L, Mean Corpuscular Volume 96.8H, Mean Corpuscular Hemoglobin 30.9, Mean Corpuscular Hemoglobin Concent 32.0, Red Cell Distribution Width 13.8, Platelet Count 180, Neutrophils (%) (Auto) 89.9H, Lymphocytes (%) (Auto) 3.7L, Monocytes (%) (Auto) 5.4H, Eosinophils (%) (Auto) 0.1, Basophils (%) (Auto) 0.2, Neutrophils # (Auto) 7.6, Lymphocytes # (Auto) 0.3L, Monocytes # (Auto) 0.5, Eosinophils # (Auto) 0.0, Basophils # (Auto) 0.0, Nucleated Red Blood Cells % (auto) 0.0, Prothrombin Time 14.3H, Prothromb Time International Ratio 1.14, Activated Partial Thromboplast Time 30.9, Anion Gap 9, Glomerular Filtration Rate 33.4L, Calcium Level 8.6L, Aspartate Amino Transf (AST/SGOT) 17, Alanine Aminotransferase (ALT/SGPT) 9L, Alkaline Phosphatase 108, Total Bilirubin 0.3, Direct Bilirubin 0.1, Total Protein 6.5, Albumin 2.5L, Albumin/Globulin Ratio 0.63L, Lipase 176 12/27/18 07:58: Nucleated Red Blood Cells % (auto) 0.0 12/27/18 10:08: Urine Color YELLOW, Urine Appearance CLEAR, Urine pH 5.0, Urine Specific [place] 1.014, Urine Protein 1+H, Urine Glucose (UA) NEGATIVE, Urine Ketones TRACEH, Urine Blood NEGATIVE, Urine Nitrite NEGATIVE, Urine Bilirubin NEGATIVE, Urine Urobilinogen 0.2, Urine Leukocyte Esterase NEGATIVE, Urine WBC (Auto) 8H, Urine RBC (Auto) 4H, Urine Hyaline Casts (Auto) 0, Urine Bacteria (Auto) 1+H, Urine Squamous Epithelial Cells 0, Urine Sperm (Auto) 12/27/18 11:43: Lactic Acid Level 1.9 CBC/BMP Laboratory Tests 12/27/18 04:37 Red Blood Count 3.49 L, Mean Corpuscular Volume 96.8 H, Mean Corpuscular Hemoglobin 30.9, Mean Corpuscular Hemoglobin Concent 32.0, Red Cell Distribution Width 13.8, Neutrophils (%) (Auto) 89.9 H, Lymphocytes (%) (Auto) 3.7 L, Monocytes (%) (Auto) 5.4 H, Eosinophils (%) (Auto) 0.1, Basophils (%) (Auto) 0.2, Neutrophils # (Auto) 7.6, Lymphocytes # (Auto) 0.3 L, Monocytes # (Auto) 0.5, Eosinophils # (Auto) 0.0, Basophils # (Auto) 0.0 7/19/19 07:58 Red Blood Count 3.94 L, Mean Corpuscular Volume 92.4, Mean Corpuscular Hemoglobin 30.2, Mean Corpuscular Hemoglobin Concent 32.7, Red Cell Distribution Width 13.6 Microbiology Microbiology 12/27/18 Blood Culture, Received Pending 12/27/18 Blood Culture, Received Pending Assessment History of muscle invasive bladder cancer status post radical cystectomy with ileal conduit now with new bilateral hydronephrosis in the setting of small bowel obstruction Plan It is possible that the hydronephrosis may be caused by external ureteral compression from the distended loops of bowel, however this seems rather unlikely. Therefore it may be reasonable to see if there is improvement in the degree of hydronephrosis and improvement in the creatinine level if the small bowel obstruction improves. This may be preferable if the patient's family prefers to avoid additional tubes and interventions at this time. However the more conservative approach would be to proceed to bilateral nephrostomy tube placement by interventional radiology. After patient has had an ileal conduit created it is nearly impossible to place ureteral stents in a retrograde manner as is often done by urology. This plan was discussed with the primary team. JAYNE THOMPSON MD Dec 27, 2018 17:43
[2018-12-27] MEDS: PIPERACILLIN/TAZOBACTAM SOD 3.375 GM in D5W MINI-BAG PLUS 50 ML IV SCH (19:01)
[2018-12-27] MEDS: QUEtiapine FUMARATE **XR** 200MG TABLET PO SCH (19:02)
--- NOTE | 2018-12-27 19:50 | HPEPDOC ---
[facility] Medical History & Physical Date of Admission Dec 27, 2018 Date of Service: Dec 27, 2018 Primary Care Physician: BI ROSENBAUM MD [facility] Attending Physician: RAULITO LOPES MD History and Physical CHIEF COMPLAINT: Brown-colored emesis HISTORY OF PRESENT ILLNESS: Teddy is an 83-year-old male with a pertinent past medical history of intellectual disability, h/o hiatal and inguinal hernias, recurrent UTIs, small bowel obstructions, bladder and prostate cancer with a resulting ileal conduit, CAD s/p [place], and CKD, who presented to the [facility] ED by ambulance after experiencing brown-colored emesis 3 overnight. After the most recent episode of emesis at 3 AM this morning, with also an accompanying low blood pressure, one of Teddy's nurses at the [facility] ([facility]) - - where he resides - - called an ambulance. All of the HPI was provided by a [facility] nurse who was in the ED with Teddy, since Teddy is significantly intellectually disabled and only responded to questions with limited 1-3 word answers. Teddy's usual diet consists of ground-up food, and he was eating and drinking without any issues, Sunday through Sunday of this week, but beginning with dinner yesterday (12/26), Teddy wouldn't eat or drink. This is atypical for him. Around midnight, Teddy had his first episode of emesis with accompanying gas pain. By 3 AM this morning, Teddy had had 2 more episodes of emesis which his nurse described as "brownish vomit." His nurse states that over the last 1-2 weeks. Teddy has experienced gas pains and has had multiple bowel accidents resulting from not making it to the commode/toilet in time. Teddy did not have any recent sick contacts, change medications or fevers. He usually ambulates with a walker, and is chronically unsteady, dragging his left foot. Teddy was hospitalized multiple times over the last 8 months. In late May. He was diagnosed with a small bowel obstruction in this past spring was seen for a recurrent UTI as well as hypotension. Teddy's PCP is Dr. Rosenbaum. In the ED, a CBC, UA, 2 blood cultures, chest CT, abdominal/pelvis CT normal saline, Zosyn, and EKG were all ordered. Teddy was given Zofran, Zosyn, and a by mouth challenge. CT imaging showed a high-grade SBO due to mesenteric twisting in the left lower quadrant, as well as a dilated small bowel loop leading into the hernia sac that likely is a second area of SBO. Bilateral hydronephrosis that had worsened from previous imaging, and bibasilar patchy infiltrates/atelectasis were also seen. Teddy's serum glucose, BUN, and creatinine were elevated, with a GFR indicating CKD. UA showed possible UTI, but this is likely affected by Teddy's ileal conduit. Teddy was admitted to the hospital under the care of the hospitalist team. Teddy was also evaluated today by General Surgery (Dr. Randolph) and Urology (Dr. Winkler). PAST MEDICAL HISTORY: 1. Bladder cancer that required a cystectomy with an ileal conduit 2. h/o SBO 3. h/o Non-reducible left inguinal hernia 4. Large Hiatal hernia 5. CAD s/p [place] s/p cardiac catheterization 6. h/o Constipation 7. Intellectually disabled resident of [facility] 8. Diabetes mellitus II 9. Chronic kidney disease 10. Recurrent UTIs 11. Essential hypertension 12. Diastolic CHF 13. h/o Anxiety and impulse control disorders 14. Prostate cancer 15. DVT right lower extremity s/p IVC filter PAST SURGICAL HISTORY: 1. Roboticassisted radical cystectomy 2. Roboticassisted prostatectomy with bilateral extended pelvic lymph node dissection and intracorporeal ileal conduit urinary diversion SOCIAL HISTORY: Resides in: [facility] ([facility]) No history of tobacco use, alcohol use or illicit drug use Other relevant social factors: Patient is intellectually disabled and his power of state's attorney is a niece named Aurea Smith. Miss Smith's contact phone numbers are [phone] and [phone] FAMILY HISTORY: Unknown ALLERGIES: Please see below. REVIEW OF SYSTEMS: A complete and thorough review of systems was unable to be obtained. The patient is intellectually disabled and he responds to questions with one-word mostly "no." Responses below are from two of his caretakers at the [facility] (Rhonda and Clair ragland) -Endorses: Brown-colored emesis overnight last night (12/26 into 12/27), 1-2 weeks of gas pain complaints as well as recent bowel accidents (not making it to the bathroom on time), h/o aspiration -Denies: recent fever, sick contacts, change in medications -Patient usually ambulates with the assistance of a walker and recently has been more unsteady on his feet, particularly dragging his left foot -Patient's last bowel movement was yesterday (, 12/26) and described by his line up examiner as a "medium BM" - - not too solid nor liquid HOME MEDICATIONS: Please see below. PHYSICAL EXAMINATION: VITAL SIGNS: Temperature 97.5, pulse 97, respiratory rate 20, blood pressure 107/74, pulse oximetry 93% on supplemental oxygen via a Venturi mask (current setting 15 L, previous setting 3 L; FiO2 50) GENERAL APPEARANCE: elderly man who appears stated age lying in bed with full face supplemental oxygen mask and ileal conduit urine bag on abdomen. He appeared in a relatively calm, but confused state, responding to questions with single words and repeating agitated directives and questions to examiner HEENT: normocephalic, atraumatic. CARDIOVASCULAR: tachycardic, no audible rubs or gallops, nl S1, S2 LUNGS: mild crackles in left lateral lung, no wheezes or rhonci; on supplemental O2 ABDOMEN: soft, distended, non-tender to palpation; palpable mass in left upper quadrant, tympanic, high-pitched bowel sounds throughout abdominal quadrants EXTREMITIES: 2+ radial and posterior pulses b/l; no LE edema; palpable mass on proximal left anterior/lateral LE inferior to the patella NEUROLOGICAL: awake and oriented to self only; maintained eye contact at times; responded to touch and exam palpation PSYCHIATRIC: confused state; dismissive at times and bothered by exam and questioning LABORATORY DATA: See below. IMAGING: Abdominal/pelvis CT, 12/27- showed -a high grade small bowel obstruction caused by mesenteric twisting in the left lower quadrant. More inferiorly, a left inguinal hernia is again seen contain ing small bowel. A significantly dilated small bowel loop leads into the hernia sac. This likely represents a second point of small bowel obstruction. There is fluid and edema in the hernia sac with possible strangulation. -moderately severe bilateral hydronephrosis has increased since prior study of 12/03/2018. -possible right pelvic mass, not well evaluated due to the lack of oral and IV contrast. Estimated diameter of the mass [address], 12/27 showed Patchy bibasilar infiltrates/atelectasis, greatest in the lingula, increased since prior study of 03/20/2018. MICROBIOLOGY: Please see below. ASSESSMENT & PLAN: 1. Small bowel obstruction -Visualized on abdominal/pelvis CT in left lower quadrant with additional area inferiorly of left inguinal hernia containing small bowel -General surgery (Dr. Randolph) saw and evaluated the patient this afternoon. Patient was made NPO, given IV fluids and a nasogastric tube was placed in order to facilitate decompression of obstruction. Inguinal hernia, not thought to be incarcerated, but patient's abdominal distention seems to be pushing it out and making more prominent. Large hiatal hernia that contains fluid filled stomach is most likely the cause of patient's recent emesis With patient's age, extensive history, and comorbidities, surgery is not warranted at this time. We will allow NG tube decompression to run its course then subsequently reevaluate. guaiac of the Gi content is nagative for any blood. Thank you to Dr. Randolph for his time, collaboration, and insights in regards to the care of our patient 2. Possible aspiration pneumonia likely secondary to recent emesis and large hiatal hernia -bibasilar patchy infiltrates/atelectasis visualized on CT -Patient currently receiving Zosyn -Continue to monitor patient's respiratory status (O2 saturation, rr, supplemental oxygen use, etc.) -Lactic acid and procalcitonin ordered -2 blood cultures ordered and are pending -c/w Zofran for nausea/to decrease risk of further emesis 3. Acute kidney injury on chronic kidney disease. Acute due due to obstructive uropathy may be due to new right pelvic mass and compression by the distended bowels His CKD is possible DM and Hypertension related. New onset B/l hydronephrosis Urology (Dr. Winkler) was consulted; there is not much I can be done from urology standpoint since patient cannot receive ureteral stents due to existing ileal conduit. If family desires immediate action, patient could receive bilateral nephrostomy tubes via IR or can wait to see if NG tube decompression helps to alleviate abdominal distention and potentially improve hydronephrosis. Then reassess for appropriateness of nephrostomy tube placement. Patient likely does not have complete bilateral obstruction due to the fact that he is producing urine -Thank you to Dr. Winkler for his time, collaboration, and insights in regards to the care of our patient 5. Hiatal hernia -Visualized on imaging containing fluid-filled portion of stomach -Per Gen. surgery this is likely the cause of patient's recent emesis 6. Intellectual disability -Patient is a resident at the [facility] ([facility]). His main nurses are Cristopher -Patient's power of state's attorney is his niece Aurea Smith, she can be reached at [phone] or [phone] 8. Diabetes mellitus, type II -Patient's measured serum glucose was 280 (fasting) -Continue to monitor and assess patient's alertness -FS q 6 hours -Lispro as per sliding scale 9. Anxiety and mood disorder -c/w patient's home paroxetine and shruthi 10. CAD s/p [place] s/p cardiac catheterization 11. h/o bladder and prostate cancer s/p surgery and creation of ilead conduit. 12. h/o recurrent UTIs -UA showed increased white blood cell count, 1+ protein, 1+ bacteria, trace ketones -UA results potentially could be affected by patient's ileal conduit 13. DVT prophylaxis -[place]respo receiving 5000 units of heparin Has IVC filter in place. Vital Signs Vital Signs Date Time Temp Pulse Resp B/P (MAP) Pulse Ox O2 Delivery O2 Flow Rate FiO2 12/27/18 14:30 97 20 107/74 (85) 93 Venturi Mask 15.0 50 12/27/18 07:39 97.5 Laboratory Data Labs 24H Laboratory Tests 2 12/27/18 04:37: Immature Granulocyte % (Auto) 0.7, White Blood Count 8.5, Red Blood Count 3.49L, Hemoglobin 10.8L, Hematocrit 33.8L, Mean Corpuscular Volume 96.8H, Mean Corpuscular Hemoglobin 30.9, Mean Corpuscular Hemoglobin Concent 32.0, Red Cell Distribution Width 13.8, Platelet Count 180, Neutrophils (%) (Auto) 89.9H, Lymphocytes (%) (Auto) 3.7L, Monocytes (%) (Auto) 5.4H, Eosinophils (%) (Auto) 0.1, Basophils (%) (Auto) 0.2, Neutrophils # (Auto) 7.6, Lymphocytes # (Auto) 0.3L, Monocytes # (Auto) 0.5, Eosinophils # (Auto) 0.0, Basophils # (Auto) 0.0, Nucleated Red Blood Cells % (auto) 0.0, Prothrombin Time 14.3H, Prothromb Time International Ratio 1.14, Activated Partial Thromboplast Time 30.9, Anion Gap 9, Glomerular Filtration Rate 33.4L, Calcium Level 8.6L, Aspartate Amino Transf (AST/SGOT) 17, Alanine Aminotransferase (ALT/SGPT) 9L, Alkaline Phosphatase 108, Total Bilirubin 0.3, Direct Bilirubin 0.1, Total Protein 6.5, Albumin 2.5L, Albumin/Globulin Ratio 0.63L, Lipase 176 12/27/18 07:58: Nucleated Red Blood Cells % (auto) 0.0 12/27/18 10:08: Urine Color YELLOW, Urine Appearance CLEAR, Urine pH 5.0, Urine Specific [place] 1.014, Urine Protein 1+H, Urine Glucose (UA) NEGATIVE, Urine Ketones TRACEH, Urine Blood NEGATIVE, Urine Nitrite NEGATIVE, Urine Bilirubin NEGATIVE, Urine Urobilinogen 0.2, Urine Leukocyte Esterase NEGATIVE, Urine WBC (Auto) 8H, Urine RBC (Auto) 4H, Urine Hyaline Casts (Auto) 0, Urine Bacteria (Auto) 1+H, Urine Squamous Epithelial Cells 0, Urine Sperm (Auto) 12/27/18 11:43: Lactic Acid Level 1.9 CBC/BMP Laboratory Tests 12/27/18 04:37 Red Blood Count 3.49 L, Mean Corpuscular Volume 96.8 H, Mean Corpuscular Hemoglobin 30.9, Mean Corpuscular Hemoglobin Concent 32.0, Red Cell Distribution Width 13.8, Neutrophils (%) (Auto) 89.9 H, Lymphocytes (%) (Auto) 3.7 L, Monocytes (%) (Auto) 5.4 H, Eosinophils (%) (Auto) 0.1, Basophils (%) (Auto) 0.2 , Neutrophils # (Auto) 7.6, Lymphocytes # (Auto) 0.3 L, Monocytes # (Auto) 0.5, Eosinophils # (Auto) 0.0, Basophils # (Auto) 0.0 12/27/18 07:58 Red Blood Count 3.94 L, Mean Corpuscular Volume 92.4, Mean Corpuscular Hemoglobin 30.2, Mean Corpuscular Hemoglobin Concent 32.7, Red Cell Distribution Width 13.6 Microbiology Microbiology 12/27/18 Blood Culture, Received Pending 12/27/18 Blood Culture, Received Pending Home Medications Scheduled Ascorbic Acid (Vitamin C) 250 Mg Tab.chew, 250 MG PO BID Calcium Carbonate/Vitamin D3 (Calcium 500-Vit D3 200 Tablet) 1 Each Tablet, 1 TAB PO BID Carbamide Peroxide (Debrox) 15 Ml Drops, 1 DROP AU 2XWK SUNDAY AND SUNDAY AT QHS Docusate Sodium (Colace) 100 Mg Cap, 100 MG PO BID Ferrous Sulfate (Ferrous Sulfate) 325 Mg Tab, 325 MG PO BID Insulin Detemir (Levemir) 1 Units/0.01 Ml Susp, 18 UNITS SC DAILY L.acidoph/L.bulg/B.bif/S.therm (Bacid Caplet) 1 Tab Tab, 1 TAB PO BID Lactulose (Lactulose) 10 Gm/15 Ml Solution, 15 ML PO DAILY Omeprazole (Omeprazole) 20 Mg Cap, 20 MG PO DAILY Paroxetine HCl (Paxil) 40 Mg Tab, 40 MG PO QHS TAKES WITH 20MG FOR 60MG TOTAL Paroxetine HCl (Paxil) 20 Mg Tab, 20 MG PO QHS TAKES WITH 40MG FOR 60MG TOTAL Polyethylene Glycol 3350 (Miralax) 17 Gm Powd.pack, 17 GM PO DAILY Pravastatin Sodium (Pravastatin Sodium) 40 Mg Tab, 40 MG PO QHS Quetiapine Fumarate (Quetiapine Fumarate ER) 200 Mg Tab.er.24h, 200 MG PO QPM 1630 Sennosides/Docusate Sodium (Senna Plus Tablet) 1 Tab Tab, 1 TAB PO BID Sitagliptin Phosphate (Januvia) 25 Mg Tab, 25 MG PO QHS Scheduled PRN Bisacodyl (Bisacodyl) 10 Mg Sup, 10 MG OK Q4DP PRN for CONSTIPATION ON DAY 4 WITHOUT A BM Glimepiride (Glimepiride) 1 Mg Tablet, 1 MG PO DAILY PRN for BS>160 TAKES WITH BREAKFAST OR FIRST MAIN MEAL OF DAY IF BS>160 Magnesium Hydroxide (Milk of Magnesia) 400 Mg/5 Ml Oral.susp, 30 ML PO Q3RD PRN for CONSTIPATION 3RD DAY WITH NO BM: MIXED WITH 8 OZ OF PRUNE JUICE Ondansetron HCl (Ondansetron HCl) 4 Mg Tablet, 4 MG PO Q6H PRN for NAUSEA Zinc Oxide (Desitin) 454 Gm Cream..g., 1 DOSE TOP QID PRN for RASH/ITCHING APPLY TO GROIN AREA Allergies Coded Allergies: povidone-iodine (Verified Allergy, Intermediate, Hives, 09/12/18) latex (Verified Allergy, Mild, Risk, 09/12/18) A-FIB/CHADSVASC A-FIB History Current/History of A-Fib/PAF?: No Current PO Anticoag Therapy: Yes Attending Note Attending Note I performed a history and physical examination and discussed the management with the resident. I reviewed the resident's note and agree with the documented findings and plan of care with following addendum/ amendments. Advance directives could not be discussed as patient is intellectually disabled though he has a legal guardian ( his niece) she cannot decide about DNR/DNI status . This has to go through the courts. Acute respiratory failure with hypoxia due to possibly aspiration pneumonia from his large hiatal hernia and several episodes of vomiting that he had overnight. Will give Zosyn. will give IVF. High graSBO management as per surgery. Looks like there are 2 points of obstruction. right now remains on conservative management with NG tube IVF, NPO Possible strangulated left inguinal hernia as per surgery. [place] on CKD due to new Obstructive uropathy. New appearance of right pelvic mass with bilateral hydroureteronephrosis . Will consult Urology. Has history of muscle invasive stage 4 bladder cancer and prostate ca s/p total cystoprostatectomy with ileal conduit and urostomy creation. May need bilateral nephrostomy tubes if the obstruction does not improve after SBO resolves. JESUS BETHEA PGY-1 Dec 27, 2018 18:50 RAULITO LOPES MD Dec 27, 2018 22:28
--- NOTE | 2018-12-27 21:10 | ECGEPIP ---
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
[2018-12-27] MEDS ORDERED: D5W 1,000 ML IV SCH (23:00)
[2018-12-27] MEDS ORDERED: DEXTROSE 50% 50 ML SYRINGE IV PRN (23:15)
[2018-12-27] MEDS ORDERED: GLUCOSE 4 GM CHEW TABLET PO PRN (23:15)
[2018-12-27] MEDS ORDERED: GLUCAGON FOR INJ 1 MG VIAL (J1610) SC PRN (23:15)
[2018-12-27] MEDS: HumaLOG INSULIN (NovoLOG) PER UNIT SC SCH (23:35)
[2018-12-27] MEDS: PANTOPRAZOLE 40MG INJ (PROTONIX) (C9113) IV SCH (23:35)
[2018-12-27] MEDS: HEPARIN SOD (PORCINE) 5000 UNITS/ML VIAL SC SCH (23:36)
[2018-12-27] MEDS: NS 1,000 ML IV SCH (23:36)
[2018-12-27] MEDS: PARoxetine 20 MG TAB PO SCH (23:45)
[2018-12-28] MEDS: PIPERACILLIN/TAZOBACTAM SOD 3.375 GM in D5W MINI-BAG PLUS 50 ML IV SCH ×4 (00:02→17:20)
[2018-12-28 06:48] LABS: HEMATOCRIT 32.8 % (42.0-52.0); HEMOGLOBIN 10.6 g/dl (13.5-17.5); MEAN CORPUSCULAR HGB CONC 32.3 g/dl (32.0-36.5); MEAN CORPUSCULAR VOLUME 95.9 fl (80.0-96.0); PLATELET COUNT, AUTOMATED 185 10^3/uL (150-450); RED BLOOD COUNT 3.42 10^6/uL (4.30-6.10); WHITE BLOOD COUNT 7.4 10^3/uL (4.0-10.0)
[2018-12-28 07:16] LABS: C REACTIVE PROTEIN QUANTITATIV 11.3 MG/DL (0.00-0.30); CALCIUM LEVEL 8.7 MG/DL (8.8-10.2); CREATININE FOR GFR 2.23 MG/DL (0.70-1.30); MAGNESIUM LEVEL 2.1 MG/DL (1.8-2.4); POTASSIUM SERUM 4.4 MEQ/L (3.5-5.1)
[2018-12-28] MEDS: NS 1,000 ML IV SCH ×2 (09:15→16:21)
[2018-12-28] MEDS: HEPARIN SOD (PORCINE) 5000 UNITS/ML VIAL SC SCH ×2 (09:47→21:30)
--- NOTE | 2018-12-28 10:23 | IPNPDOC ---
Subjective General Date/Time Seen The patient was seen on 12/28/18 at 10:20. Subject Chief Complaint/History The patient is a 83-year-old male admitted with a reason for visit of Aspiration Pnemonia,Small Bowel Obstruction. He reports the hand one bowel movement yesterday and to overnight and his abdomen is markedly less distended today and likewise his inguinal hernia also appears reduced. There was not much output from the nasogastric tube. I suspect this is just located in the stomach within the large hiatal hernia. He looks comfortable. He is denying any abdominal discomfort, discomfort at the left groin. Current Medications Current Medications Current Medications Dextrose (Dextrose 50%) 25 ml ASDIRECTED PRN IV SEE LABEL COMMENTS; Start 12/27/18 at 23:15 Dextrose/Water 1,000 ml @ 75 mls/hr [id number] IV ; Start 12/27/18 at 23:00; Stop 12/27/18 at 23:12; Status DC Glucagon (Glucagon) 1 mg ASDIRECTED PRN SC SEE LABEL COMMENTS; Start 12/27/18 at 23:15 Glucose (Glucose) 16 GM ASDIRECTED PRN PO SEE LABEL COMMENTS; Start 12/27/18 at 23:15 Heparin Sodium (Porcine) (Heparin) 5,000 units Q12H SC Last administered on 12/28/18at 09:47; Start 12/27/18 at 21:00 Home Med (Med Rec Complete!) ASDIRECTED XX ; Start 12/27/18 at 05:00; Stop 12/27/18 at 05:00; Status DC Insulin Human Lispro (HumaLOG INSULIN) See Protocol Table QHS SC ; Start 12/27/18 at 21:00 Ondansetron HCl (ZOFRAN INJection) 4 mg Q6HP PRN IV NAUSEA OR VOMITING; Start 12/27/18 at 23:15 Ondansetron HCl (ZOFRAN INJection) 4 mg Q8HP PRN IV NAUSEA OR VOMITING; Start 12/27/18 at 15:45; Stop 12/27/18 at 23:12; Status DC Pantoprazole Sodium (Protonix) 40 mg Q24H IV Last administered on 12/27/18at 23:35; Start 12/27/18 at 21:00 Paroxetine HCl (PAXil) 60 mg QHS PO Last administered on 12/27/18at 23:45; Start 12/27/18 at 21:00 Piperacillin Sod/ Tazobactam Sod 3.375 gm/Dextrose 50 ml @ 50 mls/hr Q6H IV Last administered on 12/28/18at 06:04; Start 12/27/18 at 18:00 Quetiapine Fumarate (SEROquel XR) 200 mg QPM@1630 PO ; Start 12/27/18 at 16:30 Sodium Chloride 1,000 ml @ 100 mls/hr Q10H IV Last administered on 12/27/18at 12:50; Start 12/27/18 at 12:45; Stop 12/27/18 at 22:44; Status DC Sodium Chloride 1,000 ml @ 100 mls/hr Q10H IV Last administered on 12/27/18at 23:36; Start 12/27/18 at 23:15 Allergies Coded Allergies: povidone-iodine (Verified Allergy, Intermediate, Hives, 09/12/18) latex (Verified Allergy, Mild, Risk, 09/12/18) Objective Physical Examination Examination GENERAL APPEARANCE:Patient seen, laying in bed, looks comfortable. He answers questions appropriately SKIN: Warm and dry HEENT: Nasogastric tube in place seems only to be at 50 cm level. Draining only nonbilious fluid seems to be more saliva and previous contrast. NECK: Supple, no thyromegaly. No obvious jugular venous distention. LUNGS: Clear to auscultation bilaterally. No wheezing appreciated. HEART: No chest wall abnormalities. Regular rate and rhythm with no murmurs appreciated. ABDOMEN: Abdomen is , soft, only minimal leftover distention. Markedly improved since yesterday. He is nontender throughout the abdomen. The left inguinal hernia scalpel reducible. No associated skin changes. Patient comfortable throughout the examination EXTREMITIES: Extremities have no deformities. No edema identified. Vital Signs Vital Signs Date Time Temp Pulse Resp B/P (MAP) Pulse Ox O2 Delivery O2 Flow Rate FiO2 12/28/18 07:45 82 14 133/71 (91) Room Air 12/28/18 07:30 93 12/28/18 06:00 15.0 50 12/27/18 23:17 97.0 I&Os I&O- Last 24 Hours up to 6 AM 12/28/18 06:00 Intake Total 2050 ml Balance 2050 ml Laboratory Data Labs 24H Laboratory Tests 2 12/27/18 11:43: Lactic Acid Level 1.9 12/28/18 00:30: Bedside Glucose (Misc Panel) 276H 12/28/18 06:34: Nucleated Red Blood Cells % (auto) 0.0, Anion Gap 7L, Glomerular Filtration Rate 30.0L, Blood Urea Nitrogen 54H, Creatinine 2.23H, Sodium Level 139, Potassium Level 4.4, Chloride Level 106, Carbon Dioxide Level 26, Calcium Level 8.7L, Magnesium Level 2.1, C-Reactive Protein, Quantitative 11.30H CBC/BMP Laboratory Tests 12/28/18 06:34 Red Blood Count 3.42 L, Mean Corpuscular Volume 95.9, Mean Corpuscular Hemoglobin 31.0, Mean Corpuscular Hemoglobin Concent 32.3, Red Cell Distribution Width 13.8, Calcium Level 8.7 L Microbiology Microbiology 12/27/18 Blood Culture, Received Pending 12/27/18 Blood Culture, Received Pending Impression small bowel obstruction - seems to have resolved by itself. His abdomen is much flatter. He pulled out the tube this morning but not much came out of it overnight. I will try him on a fleets enema and miralax and give him some clears left inguinal hernia - now fully reducible that he is no longer distended hiatal hernia ?right pelvic mass - will need some workup for possible mets/recurrence from his bladder cancer bilateral hydronephrosis with elevated BUN/Cr likewise will need further workup Plan / VTE VTE Prophylaxis Ordered?: Yes RADHA LINDSEY MD Dec 28, 2018 10:23
[2018-12-28] MEDS ORDERED: FLEET ENEMA PR ONE (11:00)
[2018-12-28] MEDS: MIRALAX *UNIT DOSE* 17GM PACKET PO SCH (11:04)
--- NOTE | 2018-12-28 13:53 | IPNPDOC ---
Subjective Date Seen The patient was seen on 12/28/18. Subjective Chief Complaint/HPI Teddy was seen and examined this morning while lying in bed. This morning at 7:30 AM hospitalist team was notified by his nurse that Teddy had pulled the NG tube out. He was no longer wearing the Ventri supplemental oxygen mask as he did yesterday, and was now breathing on room air. A stationary engineer from the [facility] ([facility]) was not present during our visit this morning. General: Reports: ROS Unobtainable (Teddy's review of systems is unobtainable due to his intellectual disability, and the fact that no stationary engineer from [facility] was in the room) Objective Physical Examination General Exam: Positive: Other (elderly man who appears stated age, lying in bed with ileal conduit urine bag on abdomen. For the most part , he was calm but was in a confused state overall.. He blurted out repetitive agitated directives for examiner to leave and stop) ENT Exam: Positive: Atraumatic (normocephalic) Chest Exam: Positive: Rales (mild, in the left lung base), Other (. Breathing room air); Negative: Rhonchi, Wheezing Heart Exam: Positive: Tachycardic, Normal S1, Normal S2; Negative: Gallops, Rubs Abdomen Exam: Positive: Soft, Other (Tympanic bowel sounds significantly dimini shed from yesterday); Negative: Tenderness (Abdominal distention significantly decreased from yest erday) Extremity Exam: Positive: Normal pulses (, 2+ radial and posterior tibial pulses bilaterally), Other (palpable mass on proximal left anterior/lateral lower extremity inferior to the patella); Negative: Edema Psych Exam: Negative: Mental status NL (patient has a history of intellectual disability; he was in a confused state, dismissive at times and bothered by exam and associated questions), Oriented x 3 (, awake and oriented to self only; main tain eye contact at times; bonded to touch and palpation during exam) Assessment /Plan Assessment 1. Small bowel obstruction -Patient removed NG tube himself this morning at 7:30 AM -Visualized on abdominal/pelvis CT in left lower quadrant with additional area inferiorly of left inguinal hernia containing small bowel -General surgery (Dr. Randolph) saw and evaluated the patient again today (12/28). . They say that patient's SBO seems to have resolved by itself and that his abdomen is much flatter. Not much was suctioned out by NG tube overnight. General surgery will try patient on a fleets enema and MiraLAX. General surgery will also try to give patient some clears. -Per general surgery, the patient's left inguinal hernia is now fully reducible since his abdomen is no longer distended -Patient has hiatal hernia with fluid-filled section of stomach seen on imaging -General surgery. States that patient's right pelvic mass will need some workup for possible recurrence/metastasis from his previous bladder and/or prostate cancer -Thank you to Dr. Randolph for his time, collaboration, and insights in regards to the care of our patient 2. Possible aspiration pneumonia likely secondary to recent emesis and large hiatal hernia -bibasilar patchy infiltrates/atelectasis visualized on CT -Patient currently receiving Zosyn -Continue to monitor patient's respiratory status (O2 saturation, rr, supplemental oxygen use, etc.) -Lactic acid and procalcitonin ordered -2 blood cultures ordered and are pending -c/w Zofran for nausea/to decrease risk of further emesis 3. Acute kidney injury on chronic kidney disease. Acute due to obstructive uropathy may be due to new right pelvic mass and compression by the distended bowels His CKD is possible DM and Hypertension related. Worse today, making good urine in thr urostomy bag. New onset B/l hydronephrosis Urology (Dr. Winkler) was consulted; there is not much that can be done from urology standpoint since patient cannot receive ureteral stents due to existing ileal conduit. If family desires immediate action, patient could receive bilateral nephrostomy tubes via IR or can wait to see if NG tube decompression helps to alleviate abdominal distention and potentially improve hydronephrosis. Then reassess for appropriateness of nephrostomy tube placement. Patient likely does not have complete bilateral obstruction due to the fact that he is producing urine. -Now that patient's small bowel obstruction seems to have resolved by itself. Per general surgery and that his abdomen is no longer distended, reassessment of hydronephrosis state may be indicated to see if it has resolved -Thank you to Dr. Winkler for his time, collaboration, and insights in regards to the care of our patient 5. Hiatal hernia -Visualized on imaging containing fluid-filled portion of stomach -Per Gen. surgery this is likely the cause of patient's recent emesis 6. Intellectual disability -Patient is a resident at the [facility] ([facility]). His main nurses are Rhonda and Maggi -Patient's power of assistant county attorney is his niece Aurea Smith, she can be reached at [phone] or [phone] 8. Diabetes mellitus, type II -Patient's measured serum glucose was 293 (fasting), up from 280 yesterday -Continue to monitor and assess patient's alertness -FS q 6 hours -Lispro as per sliding scale 9. Anxiety and mood disorder -c/w patient's home paroxetine and shruthi 10. CAD s/p MO s/p cardiac catheterization 11. h/o bladder and prostate cancer s/p robotic cystoprostatectomy and creation of ileal conduit. 12. h/o recurrent UTIs -UA showed increased white blood cell count, 1+ protein, 1+ bacteria, trace ke tones -UA results potentially could be affected by patient's ileal conduit 13. DVT prophylaxis receiving 5000 units of heparin Has IVC filter in place. Plan/VTE VTE Prophylaxis Ordered?: Yes VS, I&O, 24H, Fishbone Vital Signs/I&O Vital Signs Date Time Temp Pulse Resp B/P (MAP) Pulse Ox O2 Delivery O2 Flow Rate FiO2 12/28/18 12:45 97.0 82 16 133/77 (95) 90 Room Air 12/28/18 06:00 15.0 50 l I&O- Last 24 Hours up to 6 AM 12/28/18 06:00 Intake Total 2050 ml Balance 2050 ml Laboratory Data 24H LABS Laboratory Tests 2 12/28/18 00:30: Bedside Glucose (Misc Panel) 276H 12/28/18 06:34: Nucleated Red Blood Cells % (auto) 0.0, Anion Gap 7L, Glomerular Filtration Rate 30.0L, Blood Urea Nitrogen 54H, Creatinine 2.23H, Sodium Level 139, Potassium Level 4.4, Chloride Level 106, Carbon Dioxide Level 26, Calcium Level 8.7L, Magnesium Level 2.1, C-Reactive Protein, Quantitative 11.30H CBC/BMP Laboratory Tests 12/28/18 06:34 Red Blood Count 3.42 L, Mean Corpuscular Volume 95.9, Mean Corpuscular Hemoglobin 31.0, Mean Corpuscular Hemoglobin Concent 32.3, Red Cell Distribution Width 13.8, Calcium Level 8.7 L Microbiology Microbiology 12/27/18 Blood Culture - Preliminary, Resulted No growth after 24 hours . All specim... 12/27/18 Blood Culture - Preliminary, Resulted No growth after 24 hours . All specim... Attending Note Attending Note I have personally seen and examined the patient this am. I agree with the finding and the plan of care as documented above in the resident's note. Small bowel obstruction - seems to have resolved by conservative management, Had large bowel movements. He pulled out the tube this morning but not much came out of it overnight. Left inguinal hernia - now fully reducible JESUS BETHEA PGY-1 Dec 28, 2018 13:53 RAULITO LOPES MD Dec 29, 2018 02:07
[2018-12-28 15:18] VITALS: BP 143/77
[2018-12-28] MEDS: QUEtiapine FUMARATE **XR** 200MG TABLET PO SCH (17:20)
[2018-12-28] MEDS: PANTOPRAZOLE 40MG INJ (PROTONIX) (C9113) IV SCH (21:30)
[2018-12-28] MEDS: PARoxetine 20 MG TAB PO SCH (21:32)
[2018-12-28] MEDS: HumaLOG INSULIN (NovoLOG) PER UNIT SC SCH (21:32)
[2018-12-28 23:59] VITALS: BP 127/62
[2018-12-29] MEDS: PIPERACILLIN/TAZOBACTAM SOD 3.375 GM in D5W MINI-BAG PLUS 50 ML IV SCH ×5 (00:20→23:14)
[2018-12-29 04:00] VITALS: BP 107/60
[2018-12-29] MEDS: NS 1,000 ML IV SCH ×2 (04:34→17:07)
[2018-12-29 05:03] LABS: HEMOGLOBIN 9.3 g/dl (13.5-17.5); MEAN CORPUSCULAR HEMOGLOBIN 29.6 pg (27.0-33.0); MEAN CORPUSCULAR VOLUME 95.5 fl (80.0-96.0); PLATELET COUNT, AUTOMATED 148 10^3/uL (150-450); RED BLOOD COUNT 3.14 10^6/uL (4.30-6.10); WHITE BLOOD COUNT 4.7 10^3/uL (4.0-10.0)
[2018-12-29 05:21] LABS: C REACTIVE PROTEIN QUANTITATIV 6.91 MG/DL (0.00-0.30); CALCIUM LEVEL 7.8 MG/DL (8.8-10.2); CREATININE FOR GFR 1.83 MG/DL (0.70-1.30); GLOMERULAR FILTRATION RATE 37.6 (>35); POTASSIUM SERUM 3.6 MEQ/L (3.5-5.1)
[2018-12-29 07:37] VITALS: BP 113/63
[2018-12-29] MEDS: MIRALAX *UNIT DOSE* 17GM PACKET PO SCH (08:25)
[2018-12-29] MEDS: HEPARIN SOD (PORCINE) 5000 UNITS/ML VIAL SC SCH ×2 (08:26→23:15)
[2018-12-29] MEDS: LEVEMIR (INSULIN DETEMIR) 1 UNITS/0.01ML SC SCH (08:26)
[2018-12-29] MEDS: HumaLOG INSULIN (NovoLOG) PER UNIT SC SCH ×4 (08:27→22:35)
[2018-12-29 12:15] VITALS: BP 124/70
--- NOTE | 2018-12-29 14:29 | IPNPDOC ---
Subjective Date Seen The patient was seen on 12/29/18. Subjective Chief Complaint/HPI Does not offer any complaints this morning. calm and cooperative. Denies any abdominal pain. Objective Physical Examination General Exam: Positive: Other (elderly man who appears stated age, lying in bed with ileal conduit urine bag on abdomen. For the most part , he was calm but was in a confused state overall.. He blurted out repetitive agitated directives for examiner to leave and stop) ENT Exam: Positive: Atraumatic (normocephalic) Chest Exam: Positive: Rales (mild, in the left lung base), Other (. Breathing room air); Negative: Rhonchi, Wheezing Heart Exam: Positive: Tachycardic, Normal S1, Normal S2; Negative: Gallops, Rubs Abdomen Exam: Positive: Normal bowel sounds, Soft, Other; Negative: Tenderness (Abdominal distention significantly decreased from yesterday) Extremity Exam: Positive: Normal pulses (, 2+ radial and posterior tibial pulses bilaterally), Other (palpable mass on proximal left anterior/lateral lower extremity inferior to the patella); Negative: Edema Psych Exam: Negative: Mental status NL (patient has a history of intellectual disability; he was in a confused state, dismissive at times and bothered by exam and associated questions), Oriented x 3 (, awake and oriented to self only; maintain eye contact at times; bonded to touch and palpation during exam) Assessment /Plan Assessment 1. Small bowel obstruction resolved spontaneously diet as per surgery His hernia is now fully reducible. 2. Possible aspiration pneumonia likely secondary to recent emesis and large hiatal hernia -bibasilar patchy infiltrates/atelectasis visualized on CT -Patient currently receiving Zosyn -2 blood cultures negative till date -c/w Zofran for nausea/to decrease risk of further emesis 3. Acute kidney injury on chronic kidney disease. improved today. Acute due to obstructive uropathy may be due to new right pelvic mass and compression by the distended bowels with new onset bilateral hydronephrosis. His CKD is possible DM and Hypertension related. Urology (Dr. Winkler) was consulted; there is not much that can be done from urology standpoint since patient cannot receive ureteral stents due to existing ileal conduit. If family desires immediate action, patient could receive bilateral nephrostomy tubes via IR or can wait to see if NG tube decompression helps to alleviate abdominal distention and potentially improve hydronephrosis. Then reassess for appropriateness of nephrostomy tube placement. Patient likely does not have complete bilateral obstruction due to the fact that he is pro ducing urine. -Now that patient's small bowel obstruction seems to have resolved by itself. Per general surgery and that his abdomen is no longer distended, reassessment of hydronephrosis state may be indicated to see if it has resolved -Thank you to Dr. Winkler for his time, collaboration, and insights in regards to the care of our patient 5. Hiatal hernia -Visualized on imaging containing fluid-filled portion of stomach -Per Gen. surgery this is likely the cause of patient's recent emesis 6. Intellectual disability -Patient is a resident at the [facility] ([facility]). His main nurses are Cristopher -Patient's power of attorney lawyer is his niece Aurea Smith, she can be reached at [phone] or [phone] 8. Diabetes mellitus, type II -Patient's measured serum glucose was 293 (fasting), up from 280 yesterday -levemir and lispro 9. Anxiety and mood disorder -c/w patient's home paroxetine and shruthi 10. CAD s/p [place] s/p cardiac catheterization 11. h/o bladder and prostate cancer s/p robotic cystoprostatectomy and creation of ileal conduit. 12. h/o recurrent UTIs -UA showed increased white blood cell count, 1+ protein, 1+ bacteria, trace ketones -UA results potentially could be affected by patient's ileal conduit 13. DVT prophylaxis receiving 5000 units of heparin Has IVC filter in place. Plan/VTE VTE Prophylaxis Ordered?: Yes VS, I&O, 24H, Fishbone Vital Signs/I&O Vital Signs Date Time Temp Pulse Resp B/P (MAP) Pulse Ox O2 Delivery O2 Flow Rate FiO2 12/29/18 07:37 97.4 83 18 113/63 (80) 100 12/28/18 15:30 2.0 12/28/18 14:40 Venturi Mask 12/28/18 06:00 50 I&O- Last 24 Hours up to 6 AM 12/29/18 05:59 Intake Total 1590 ml Output Total 1475 ml Balance 115 ml Laboratory Data 24H LABS Laboratory Tests 2 12/28/18 18:24: Bedside Glucose (Misc Panel) 330H 12/28/18 21:19: Bedside Glucose (Misc Panel) 313H 12/29/18 04:26: Nucleated Red Blood Cells % (auto) 0.0, Anion Gap 8, Glomerular Filtration Rate 37.6, Blood Urea Nitrogen 45H, Creatinine 1.83H, Sodium Level 143, Potassium Level 3.6, Chloride Level 112H, Carbon Dioxide Level 23, Calcium Level 7.8L, C- Reactive Protein, Quantitative 6.91H 12/29/18 12:37: Bedside Glucose (Misc Panel) 151H CBC/BMP Laboratory Tests 12/29/18 04:26 Red Blood Count 3.14 L, Mean Corpuscular Volume 95.5, Mean Corpuscular Hemoglobin 29.6, Mean Corpuscular Hemoglobin Concent 31.0 L, Red Cell Distribution Width 13.9, Calcium Level 7.8 L Microbiology Microbiology 12/27/18 Blood Culture - Preliminary, Resulted No Growth after 48 hours. All Specime... 12/27/18 Blood Culture - Preliminary, Resulted No Growth after 48 hours. All Specime... RAULITO LOPES MD Dec 29, 2018 14:29
[2018-12-29] MEDS: QUEtiapine FUMARATE **XR** 200MG TABLET PO SCH (17:18)
[2018-12-29 22:00] VITALS: BP 118/64
--- NOTE | 2018-12-29 23:03 | IPNPDOC ---
Subjective Review oF Systems Chief Complaint The patient is a 83-year-old male admitted with a reason for visit of Aspiration Pnemonia,Small Bowel Obstruction. Events since Last Encounter Interval resolution of SBO and improvement in Cr. Objective Physical Examination Heart Exam: Positive: Tachycardic, Normal S1, Normal S2; Negative: Gallops, Rubs Vital Signs/I&O Vital Signs Date Time Temp Pulse Resp B/P (MAP) Pulse Ox O2 Delivery O2 Flow Rate FiO2 12/29/18 12:15 97.2 62 16 124/70 (88) 99 12/28/18 15:30 2.0 12/28/18 14:40 Venturi Mask 12/28/18 06:00 50 I&O- Last 24 Hours up to 6 AM0 12/29/18 06:00 Intake Total 1590 ml Output Total 1625 ml Balance -35 ml Laboratory Data Labs 24H Laboratory Tests 2 12/29/18 04:26: Nucleated Red Blood Cells % (auto) 0.0, Anion Gap 8, Glomerular Filtration Rate 37.6, Blood Urea Nitrogen 45H, Creatinine 1.83H, Sodium Level 143, Potassium Level 3.6, Chloride Level 112H, Carbon Dioxide Level 23, Calcium Level 7.8L, C- Reactive Protein, Quantitative 6.91H 12/29/18 12:37: Bedside Glucose (Misc Panel) 151H 12/29/18 17:39: Bedside Glucose (Misc Panel) 69L 12/29/18 21:34: Bedside Glucose (Misc Panel) 107 CBC/BMP Laboratory Tests 12/29/18 04:26 Red Blood Count 3.14 L, Mean Corpuscular Volume 95.5, Mean Corpuscular Hemoglobin 29.6, Mean Corpuscular Hemoglobin Concent 31.0 L, Red Cell Distr ibution Width 13.9, Calcium Level 7.8 L FSBS Laboratory Tests Test 12/29/18 12:37 12/29/18 17:39 12/29/18 21:34 Range/Units Bedside Glucose (Misc Panel) 151 69 107 83-110 MG/DL Microbiology Microbiology 12/27/18 Blood Culture - Preliminary, Resulted No Growth after 48 hours. All Specime... 12/27/18 Blood Culture - Preliminary, Resulted No Growth after 48 hours. All Specime... Assessment/Plan Date Seen The patient was seen on 12/29/18. Plan/VTE VTE Prophylaxis Ordered?: Yes Plan -Recommend radiologic re-evaluation of bilateral hydronephrosis. If Cr is now low enough, then recommend CT urogram which would provide most information about possible ureteral obstruction while at the same time providing adequate gela luation of the ? new right pelvic mass. If Cr is still too high for IV contrast, then recommend renal ultrasound. If there is persistent bilateral hydronephrosis will have to consider bilateral nephrostomy tube placement by IR. JAYNE THOMPSON MD Dec 29, 2018 23:03
[2018-12-29] MEDS: PANTOPRAZOLE 40MG INJ (PROTONIX) (C9113) IV SCH (23:14)
[2018-12-29] MEDS: PARoxetine 20 MG TAB PO SCH (23:14)
[2018-12-30] MEDS: NS 1,000 ML IV SCH (05:51)
[2018-12-30] MEDS: PIPERACILLIN/TAZOBACTAM SOD 3.375 GM in D5W MINI-BAG PLUS 50 ML IV SCH ×3 (05:51→17:05)
[2018-12-30 06:00] VITALS: BP 107/59
[2018-12-30] MEDS: HumaLOG INSULIN (NovoLOG) PER UNIT SC SCH ×4 (07:30→21:00)
[2018-12-30 07:34] LABS: HEMATOCRIT 31.4 % (42.0-52.0); HEMOGLOBIN 9.8 g/dl (13.5-17.5); MEAN CORPUSCULAR HGB CONC 31.2 g/dl (32.0-36.5); PLATELET COUNT, AUTOMATED 132 10^3/uL (150-450); RED BLOOD COUNT 3.27 10^6/uL (4.30-6.10); WHITE BLOOD COUNT 4.1 10^3/uL (4.0-10.0)
[2018-12-30 07:59] LABS: CALCIUM LEVEL 7.5 MG/DL (8.8-10.2); CREATININE FOR GFR 1.69 MG/DL (0.70-1.30); GLOMERULAR FILTRATION RATE 41.3 (>35); POTASSIUM SERUM 3.3 MEQ/L (3.5-5.1)
[2018-12-30] MEDS: LEVEMIR (INSULIN DETEMIR) 1 UNITS/0.01ML SC SCH (09:00)
[2018-12-30] MEDS: MIRALAX *UNIT DOSE* 17GM PACKET PO SCH (09:55)
[2018-12-30] MEDS: HEPARIN SOD (PORCINE) 5000 UNITS/ML VIAL SC SCH (09:55)
[2018-12-30] MEDS ORDERED: POTASSIUM CHLORIDE 10 MEQ SR TABLET PO ONE (10:00)
--- NOTE | 2018-12-30 11:03 | IPNPDOC ---
Subjective General Date/Time Seen The patient was seen on 12/30/18 at 10:59. Subject Chief Complaint/History The patient is a 83-year-old male admitted with a reason for visit of Aspiration Pnemonia,Small Bowel Obstruction. Patient tolerating dietand having bowel movements daily. No further episodes of vomiting. He looks comfortable. He is denying any abdominal discomfort, left inguinal discomfort. Left inguinal hernia appears fully reduced when he lies down. Current Medications Current Medications Current Medications Dextrose (Dextrose 50%) 25 ml ASDIRECTED PRN IV SEE LABEL COMMENTS; Start 12/27/18 at 23:15 Dextrose/Water 1,000 ml @ 75 mls/hr [id number] IV ; Start 12/27/18 at 23:00; Stop 12/27/18 at 23:12; Status DC Glimepiride (Amaryl) 1 mg DAILY@0730 PO ; Start 12/30/18 at 07:30 Glucagon (Glucagon) 1 mg ASDIRECTED PRN SC SEE LABEL COMMENTS; Start 12/27/18 at 23:15 Glucose (Glucose) 16 GM ASDIRECTED PRN PO SEE LABEL COMMENTS; Start 12/27/18 at 23:15 Heparin Sodium (Porcine) (Heparin) 5,000 units Q12H SC Last administered on 12/30/18at 09:55; Start 12/27/18 at 21:00 Home Med (Med Rec Complete!) ASDIRECTED XX ; Start 12/27/18 at 05:00; Stop at 05:00; Status DC Insulin Detemir (Levemir Insulin) 10 units DAILY SC Last administered on 12/29/18at 08:26; Start 12/29/18 at 09:00 Insulin Human Lispro (HumaLOG INSULIN) SEE PROTOCOL TABLE AC SC Last administered on 12/29/18at 12:49; Start 12/29/18 at 07:30 Insulin Human Lispro (HumaLOG INSULIN) See Protocol Table QHS SC Last administered on 12/28/18at 21:32; Start 12/27/18 at 21:00 Ondansetron HCl (ZOFRAN INJection) 4 mg Q6HP PRN IV NAUSEA OR VOMITING; Start 12/27/18 at 23:15 Ondansetron HCl (ZOFRAN INJection) 4 mg Q8HP PRN IV NAUSEA OR VOMITING; Start 12/27/18 at 15:45; Stop 12/27/18 at 23:12; Status DC Pantoprazole Sodium (Protonix) 40 mg Q24H IV Last administered on 12/29/18 23:14; Start 12/27/18 at 21:00 Paroxetine HCl (PAXil) 60 mg QHS PO Last administered on 12/29/18 23:14; Start 12/27/18 at 21:00 Piperacillin Sod/ Tazobactam Sod 3.375 gm/Dextrose 50 ml @ 50 mls/hr Q6H IV Last administered on 12/30/18 05:51; Start 12/27/18 at 18:00 Polyethylene Glycol (Miralax) 1 pkt DAILY PO Last administered on 12/30/18 09:55; Start 12/28/18 at 09:00 Pravastatin Sodium (Pravachol) 40 mg QHS PO ; Start 12/30/18 at 21:00 Quetiapine Fumarate (SEROquel XR) 200 mg QPM@1630 PO Last administered on 12/29/18at 17:18; Start 12/27/18 at 16:30 Sitagliptin Phosphate (Januvia) 25 mg QHS PO ; Start 12/30/18 at 21:00 Sodium Chloride 1,000 ml @ 100 mls/hr Q10H IV Last administered on 12/27/18at 12:50; Start 12/27/18 at 12:45; Stop 12/27/18 at 22:44; Status DC Sodium Chloride 1,000 ml @ 100 mls/hr Q10H IV Last administered on 12/30/18 05:51; Start 12/27/18 at 23:15; Stop 12/30/18 at 10:14; Status DC Allergies Coded Allergies: povidone-iodine (Verified Allergy, Intermediate, Hives, 09/12/18) latex (Verified Allergy, Mild, Risk, 09/12/18) Objective Physical Examination Examination GENERAL APPEARANCE: Patient looks comfortable ABDOMEN: Abdomen looks fairly flat, nondistended. He is nontender on palpation. Left inguinal hernia is protruding out and he is in a semirecumbent position them able to fully reduce this easily without any discomfort to the patient. Vital Signs Vital Signs Date Time Temp Pulse Resp B/P (MAP) Pulse Ox O2 Delivery O2 Flow Rate FiO2 12/30/18 06:00 98.7 82 16 107/59 (75) 92 12/28/18 15:30 2.0 12/28/18 14:40 Venturi Mask 12/28/18 06:00 50 I&Os l I&O- Last 24 Hours up to 6 AM 12/30/18 06:00 Intake Total 2711 ml Output Total 850 ml Balance 1861 ml Laboratory Data Labs 24H Laboratory Tests 2 12/29/18 12:37: Bedside Glucose (Misc Panel) 151H 12/29/18 17:39: Bedside Glucose (Misc Panel) 69L 12/29/18 21:34: Bedside Glucose (Misc Panel) 107 12/30/18 07:22: Nucleated Red Blood Cells % (auto) 0.0, Anion Gap 4L, Glomerular Filtration Rate 41.3, Blood Urea Nitrogen 31H, Creatinine 1.69H, Sodium Level 143, Potassium Level 3.3L, Chloride Level 113H, Carbon Dioxide Level 26, Calcium Level 7.5L CBC/BMP Laboratory Tests 12/30/18 07:22 Red Blood Count 3.27 L, Mean Corpuscular Volume 96.0, Mean Corpuscular Hemoglobin 30.0, Mean Corpuscular Hemoglobin Concent 31.2 L, Red Cell Distribution Width 13.8, Calcium Level 7.5 L Microbiology Microbiology 12/27/18 Blood Culture - Preliminary, Resulted No Growth after 48 hours. All Specime... 12/27/18 Blood Culture - Preliminary, Resulted No Growth after 48 hours. All Specime... Impression small bowel obstruction seems resolved large inguinal hernia, reducible now large hiatal hernia history of bladder cancer s/p resection and ileal conduit new hydronephrosis ?right pelvic wall mass from the surgical standpoint, stable. would like to have the pelvic mass worked up first before thinking about fixing his hernia chip if that is cancer recurrence or matastases. can follow up as outpatient. maintain on regular bowel regimen. Plan / VTE VTE Prophylaxis Ordered?: Yes RADHA LINDSEY MD Dec 30, 2018 11:03
[2018-12-30] MEDS: GLIMEPIRIDE 1 MG TABLET PO SCH (12:14)
--- NOTE | 2018-12-30 13:16 | REP ---
REASON FOR EXAM: Acute upon chronic renal disease. Assess for bilateral hydronephrosis. The comparison examination is dated 06/11/2018. The right kidney measures 10.6 x 5.9 x 5.4 cm, and the left kidney measures 10.7 x 5.6 x 5.8 cm. The renal cortical echoes are upper limits of normal, unchanged from the prior exam. Cortical medullary differentiation is less than optimal, but is recognizable. There is moderate bilateral hydronephrosis. This has increased compared to the prior exam. IMPRESSION: Moderate bilateral hydronephrosis. No other significant changes from the prior exam. Electronically Signed by Jasvir Graham DO 12/30/2018 02:37 P
[2018-12-30] MEDS ORDERED: ISOVUE-370 76% 100ML VIAL (Q9967) As Ordered ONE (13:29)
[2018-12-30 14:00] VITALS: BP 142/63
[2018-12-30] MEDS ORDERED: diphenhydrAMINE INJ 50MG/ML VIAL (J1200) IV ONE (14:00)
--- NOTE | 2018-12-30 14:54 | IPNPDOC ---
Subjective Date Seen The patient was seen on 12/30/18. Subjective Chief Complaint/HPI Teddy was seen and examined this morning while lying in bed. Due to patient's intellectual disability, the majority of the back. I received was from his [facility] ([facility]) photo checker and assembler, Silvia. Teddy has been able to expand his diet to solid foods. He is no longer requiring supplemental oxygen as he is now breathing on room air. Teddy had just returned from ultrasound of his kidneys, which showed bilateral hydronephrosis, unchanged from when they were first visualized on Sunday at the (12/27). Since the bilateral hydronephrosis did not resolve or decrease after the patient's small bowel obstruction, resolved, Teddy was to receive a follow-up CT urogram. His photo checker and assembler also states that his right thigh appears more swollen in comparison to his left. His photo checker and assembler says that the right leg was the site of a previous DVT. Teddy does have an IVC filter. General: Reports: ROS Unobtainable (due to patient's intellectual disability) Objective Physical Examination General Exam: Positive: Other (elderly man who appears stated age, lying in bed with ileal conduit urine bag on abdomen. For the most part , he was calm but was in a confused state overall.. He blurted out repetitive agitated directives for examiner to leave and stop) ENT Exam: Positive: Atraumatic (normocephalic) Chest Exam: Positive: Rales (mild, in the left lung base), Other (. Breathing room air); Negative: Rhonchi, Wheezing Heart Exam: Positive: Tachycardic, Normal S1, Normal S2; Negative: Gallops, Rubs Abdomen Exam: Positive: Normal bowel sounds (, tympanic. Bowel sounds from Sunday are no longer present.), Soft (abdomen was more soft on palpation than either the previous Sunday or Sunday's exams); Negative: Tenderness (Abdominal distention significantly decreased from yesterday) Extremity Exam: Positive: Edema (RLE and foot), Normal pulses (, 2+ radial and posterior tibial pulses bilaterally), Tenderness (tender and pain to palpation of RLE), Swelling (right LE), Other (RLE swollen versus LLE, with erythema, skin taughtness amd warmth; this progressed throughout the day with each inspection. No crepitus or skin mottling visible. Palpable roughly 3cm mass on left anterior love just distal to patella.) Psych Exam: Negative: Mental status NL (patient has a history of intellectual disability; he was in a confused state, dismissive at times and bothered by exam and associated questions), Oriented x 3 (, awake and oriented to self only; maintain eye contact at times; bonded to touch and palpation during exam) Assessment /Plan Assessment 1. Right lower extremity DVT -Patient had increased erythema, edema, and warmth of the right lower extremity when re-checked early this evening after first being evaluated today at 11 AM, and then around 3:30 PM. No crepitus or skin mottling on exam, but there was increasing skin tautness on each recheck throughout the day. -Duplex ultrasound of the right lower extremity was performed this afternoon and an acute thrombus could not absolutely be excluded. The findings could be secondary to partially recanalized occlusive thrombus that was demonstrated on previous imaging -Patient is a high risk since he has a h/o DVT since March 2018 for which an IVC filter was placed. It was felt at the time that, due to patient's mental status, an IVC filter was a better option than anticoagulation. The IVC filter was placed by Dr. Melissa. -Dr. Melissa, vascular surgery, was consulted and had the patient's AC switched to a heparin drip with lab checks every [address] Melissa will see and assess the patient. This plan of care was discussed with nursing and communicated to the night hospitalist team. 2. Small bowel obstruction -Patient removed NG tube himself in the morning on 12/28 -Visualized on abdominal/pelvis CT in left lower quadrant with additional area inferiorly of left inguinal hernia containing small bowel -General surgery (Dr. Randolph) saw and evaluated the patient again today (12/30). SPO seems resolved. Large inguinal hernia is now reducible. Large hiatal hernia still present. *From a surgical standpoint, the patient is stable. The p atient's pelvic mass should be worked up first before thinking about any hernia repair, especially if this is the result of cancer metastasis or recurrence. Patient can follow-up with general surgery as an outpatient. Maintain the patient on regular bowel regimen. -Thank you to Dr. Randolph for his time, collaboration, and insights in regards to the care of our patient 3. Possible aspiration pneumonia likely secondary to recent emesis and large hiatal hernia -bibasilar patchy infiltrates/atelectasis visualized on CT -Patient currently receiving Zosyn -Continue to monitor patient's respiratory status (O2 saturation, rr, supplemental oxygen use, etc.) -Lactic acid and procalcitonin ordered -2 blood cultures ordered and are pending -c/w Zofran for nausea/to decrease risk of further emesis 4. Acute kidney injury on chronic kidney disease. -Acute due to obstructive uropathy may be due to new right pelvic mass and compression by the distended bowels -Patient's CKD is possible DM and Hypertension related. Patient is making good urine in the urostomy bag. -Patient underwent kidney ultrasound and CT urogram today (12/30). Even with resolved small bowel obstruction, patient still has unchanged moderate B/l hydronephrosis from imaging on Sunday, 12/27. -Dr. Winkler (urology) saw patient on Sunday, 12/29 and recommended radiologic reevaluation of bilateral hydronephrosis. If the creatinine was low enough, then a CT urogram is recommended to provide the best information regarding possible ureteral obstruction while also giving a decent evaluation of patient's new right pelvic mass. Dr. Winkler states that if persistent bilateral hydronephrosis exists, bilateral nephrostomy tube placement by IR could be considered. -Thank you to Dr. Winkler for his time, collaboration, and insights in regards to the care of our patient 5. Hiatal hernia -Visualized on imaging containing fluid-filled portion of stomach -Per Gen. surgery this is likely the cause of patient's recent emesis 6. Intellectual disability -Patient is a resident at the [facility] ([facility]). His main nurses are Rhonda and Maggi -Patient's power of document review attorney is his niece Aurea Smith, she can be reached at [phone] or [phone] 7. Diabetes mellitus, type II -Patient's measured serum glucose was 293 (fasting), up from 280 yesterday -Continue to monitor and assess patient's alertness -FS q 6 hours -Lispro as per sliding scale 8. Anxiety and mood disorder -c/w patient's home paroxetine and shruthi 9. CAD s/p CT s/p cardiac catheterization 10. h/o bladder and prostate cancer s/p robotic cystoprostatectomy and creation of ileal conduit. 11. h/o recurrent UTIs -UA showed increased white blood cell count, 1+ protein, 1+ bacteria, trace ketones -UA results potentially could be affected by patient's ileal conduit 12. DVT prophylaxis receiving 5000 units of heparin Has IVC filter in place. Plan/VTE VTE Prophylaxis Ordered?: Yes VS, I&O, 24H, Fishbone Vital Signs/I&O Vital Signs Date Time Temp Pulse Resp B/P (MAP) Pulse Ox O2 Delivery O2 Flow Rate FiO2 12/30/18 06:00 98.7 82 16 107/59 (75) 92 12/28/18 15:30 2.0 12/28/18 14:40 Venturi Mask 12/28/18 06:00 50 I&O- Last 24 Hours up to 6 AM 12/30/18 06:00 Intake Total 2711 ml Output Total 850 ml Balance 1861 ml Laboratory Data 24H LABS Laboratory Tests 2 12/29/18 17:39: Bedside Glucose (Misc Panel) 69L 12/29/18 21:34: Bedside Glucose (Misc Panel) 107 12/30/18 07:22: Nucleated Red Blood Cells % (auto) 0.0, Anion Gap 4L, Glomerular Filtration Rate 41.3, Blood Urea Nitrogen 31H, Creatinine 1.69H, Sodium Level 143, Potassium Level 3.3L, Chloride Level 113H, Carbon Dioxide Level 26, Calcium Level 7.5L 12/30/18 12:00: Bedside Glucose (Misc Panel) 148H CBC/BMP Laboratory Tests 12/30/18 07:22 Red Blood Count 3.27 L, Mean Corpuscular Volume 96.0, Mean Corpuscular Hemoglobin 30.0, Mean Corpuscular Hemoglobin Concent 31.2 L, Red Cell Dist ribution Width 13.8, Calcium Level 7.5 L Microbiology Microbiology 12/27/18 Blood Culture - Preliminary, Resulted No Growth after 72 hours. All specime... 12/27/18 Blood Culture - Preliminary, Resulted No Growth after 72 hours. All specime... Attending Note Attending Note I have personally seen and examined the patient this am. I agree with the finding and the plan of care as documented above in the resident's note. 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 Patient has been started on heparin gtt, vascular consulted. Patient has h/o cancer with probable recurrence so will need life long anticoagulation with lovenox ideally. If that cannot be done then Coumadin. Had CT urogram today for evaluation of persistent bilateral hydronephrosis. Will also arrange for CT guided biopsy of the New right pelvic mass. JESUS BETHEA PGY-1 Dec 30, 2018 14:54 RAULITO LOPES MD Dec 30, 2018 22:01
[2018-12-30] MEDS: DOCUSATE SODIUM 100 MG CAP PO SCH (17:03)
[2018-12-30] MEDS: QUEtiapine FUMARATE **XR** 200MG TABLET PO SCH (17:03)
--- NOTE | 2018-12-30 17:47 | REPVR ---
EXAM: US Duplex Right Lower Extremity Veins, Limited EXAM DATE/TIME: 12/30/2018 5:20 PM CLINICAL HISTORY: 83 years old, male; Pain; Leg, lower; Right; Additional info: Right lower extremity (specifically thigh) to rule-out dvt TECHNIQUE: Imaging protocol: Real-time Duplex ultrasound of the Right Lower Extremity with 2-D mcgregor scale, color Doppler flow and spectral waveform analysis with image documentation. Limited exam was focused on the right lower extremity veins. COMPARISON: US Duplex, Ext,LOWER veins,unilat 06/24/2018 10:24 AM FINDINGS: Right deep veins: This thrombus from the other femoral vein to the distal femoral vein. Findings may be secondary to partially recanalized occlusive thrombus demonstrated previously, although acute thrombus not excluded. Right superficial veins: Unremarkable. Saphenofemoral junction is patent without thrombus. Soft tissues: Unremarkable. IMPRESSION: This thrombus from the other femoral vein to the distal femoral vein. Findings may be secondary to partially recanalized occlusive thrombus demonstrated previously. Acute thrombus not absolutely excluded. Electronically signed by: Mike Jenkins On 12/30/2018 17:47:25 PM
[2018-12-30 18:08] VITALS: BP 162/77
[2018-12-30] MEDS ORDERED: HEPARIN SOD (PORCINE) 5000 UNITS/ML VIAL IV PRN (18:45)
[2018-12-30] MEDS ORDERED: HEPARIN DRIP 25,000 UNITS in APPROPRIATE DILUENT 1 EA IV SCH (19:00)
[2018-12-30] MEDS: PANTOPRAZOLE 40MG INJ (PROTONIX) (C9113) IV SCH (21:20)
[2018-12-30] MEDS: PRAVASTATIN 20 MG TAB PO SCH (21:20)
[2018-12-30] MEDS: SITagliptin 50 MG TAB (JANUVIA) PO SCH (21:21)
[2018-12-30] MEDS: PARoxetine 20 MG TAB PO SCH (21:21)
[2018-12-30 22:00] VITALS: BP 140/78
[2018-12-31] MEDS: PIPERACILLIN/TAZOBACTAM SOD 3.375 GM in D5W MINI-BAG PLUS 50 ML IV SCH ×5 (00:11→23:45)
[2018-12-31 03:43] LABS: HEMATOCRIT 29.2 % (42.0-52.0); HEMOGLOBIN 9.4 g/dl (13.5-17.5); MEAN CORPUSCULAR HEMOGLOBIN 30.9 pg (27.0-33.0); MEAN CORPUSCULAR HGB CONC 32.2 g/dl (32.0-36.5); MEAN CORPUSCULAR VOLUME 96.1 fl (80.0-96.0); PLATELET COUNT, AUTOMATED 140 10^3/uL (150-450); RED BLOOD COUNT 3.04 10^6/uL (4.30-6.10); WHITE BLOOD COUNT 4.4 10^3/uL (4.0-10.0)
[2018-12-31 04:39] LABS: CALCIUM LEVEL 7.4 MG/DL (8.8-10.2); CREATININE FOR GFR 1.56 MG/DL (0.70-1.30); GLOMERULAR FILTRATION RATE 45.3 (>35)
[2018-12-31 06:00] VITALS: BP 117/66
--- NOTE | 2018-12-31 07:33 | REP ---
CT UROGRAM ABDOMEN AND PELVIS: Following the intravenous administration of 100 mL of Isovue 370, immediate and delayed CT imaging is performed of the abdomen and pelvis. Pre-IV contrast images of the abdomen and pelvis are also performed. Sagittal and coronal reconstruction images are performed. Comparison is made with severe prior CT scans, most recently 12/27/2018. Bilateral lower lung infiltrates have increased since the prior study. There are small bilateral pleural effusions. There is a large hiatal hernia. The previously noted dilated small bowel loops have decreased in caliber particularly in the upper abdomen with the previously noted mesenteric twisting not definitely visualized on the current exam. However, there is again noted a large left inguinal hernia containing a small bowel loops which appears obstructed. There is a moderately dilated fluid-filled small bowel loop leading into the hernia. The hernia demonstrates diffuse edema and contains fluid which may indicate incarceration. There is no free intraperitoneal air. There is mild free fluid in the pelvis. Right lower quadrant ostomy is again seen. Liver again demonstrates several cysts. The patient has had prior cholecystectomy. The spleen, adrenals and pancreas are unchanged in appearance. There is moderate to severe bilateral hydronephrosis with significant dilatation of the renal pelves. There is delayed nephrogram with excreted contrast still in the pelvicaliceal systems 20 minutes post IV contrast injection. Therefore, there appears to be some degree of ureteral obstruction. The hydronephrosis has definitely worsened since the prior studies of June and July of 2018. Once again an IVC filter is noted. There is no periaortic adenopathy. In the pelvis, there is a large necrotic right pelvic mass with ill-defined margins and a low density center. The approximate measurements are 7.0 x 4.8 cm. There appears to be invasion of adjacent right pelvic sidewall musculature and extension of ill-defined abnormal soft tissue into the right greater sciatic foramen. IMPRESSION: Increasing bilateral lower lung infiltrates. Small bilateral pleural effusions. Previously noted small bowel obstruction pattern is improved. However, there is still a large left inguinal hernia which contains bowel and fluid and is diffusely edematous. This may represent a strangulated hernia. There is a dilated small bowel loop leading into the hernia, again with appearance of small bowel obstruction at that location. There is no free air. There is mild free fluid in the pelvis. Moderately severe bilateral hydroureteronephrosis with a delayed nephrogram is compatible with bilateral ureteral obstruction. There is necrotic mass in the right pelvis with extension to an invasion of right pelvic sidewall musculature. There is also abnormal ill-defined soft tissue extending from the posterior margin of the mass into the right greater sciatic foramen. Electronically Signed by Dmirti Islas MD 12/31/2018 05:03 P
[2018-12-31] MEDS: HumaLOG INSULIN (NovoLOG) PER UNIT SC SCH ×4 (07:55→21:00)
[2018-12-31] MEDS: GLIMEPIRIDE 1 MG TABLET PO SCH (07:55)
[2018-12-31] MEDS: DOCUSATE SODIUM 100 MG CAP PO SCH (07:55)
[2018-12-31] MEDS: MIRALAX *UNIT DOSE* 17GM PACKET PO SCH (07:55)
--- NOTE | 2018-12-31 08:38 | IPNPDOC ---
Subjective Date Seen The patient was seen on 12/31/18. Subjective Chief Complaint/HPI Teddy was seen and examined this morning while lying upright in bed. Patient's occult blood test was negative. On inspection, patient's right lower extremity is significantly improved in appearance from yesterday. There is significantly decreased erythema, as well as a decrease in skin tightness and warmth. Patient is eating and drinking without any issues. Patient continues to breathe on room air. General: Reports: ROS Unobtainable (due to patient's intellectual disability) Objective Physical Examination General Exam: Positive: Alert, No Acute Distress ENT Exam: Positive: Atraumatic (normocephalic) Chest Exam: Positive: Rales (mild, in the left lung base), Other (. Breathing room air); Negative: Rhonchi, Wheezing Heart Exam: Positive: Tachycardic, Normal S1, Normal S2; Negative: Gallops, Rubs Abdomen Exam: Positive: Normal bowel sounds (, tympanic. Bowel sounds from Sunday are no longer present.), Soft (abdomen was more soft on palpation than either the previous Sunday or Sunday's exams), Mass (right pelvic mass); Negative: Tenderness (Abdominal distention significantly decreased from yesterday) Extremity Exam: Positive: Edema (, right lower extremity and right foot edema significantly improved from yesterday.), Normal pulses (, 2+ radial and posterior tibial pulses bilaterally), Swelling (Mild swelling and erythema of the right thigh in comparison to the left thigh, no erythema on visualization of right thigh; no increased warmth of right thigh versus left thigh), Other (palpable mass on proximal left anterior/lateral lower extremity inferior to the patella) Psych Exam: Negative: Mental status NL (patient has a history of intellectual disability; he was in a confused state, dismissive at times and bothered by exam and associated questions), Oriented x 3 (, awake and oriented to self only; maintain eye contact at times; bonded to touch and palpation during exam) Assessment /Plan Assessment 1. Right lower extremity DVT -Patient's right lower extremity edema, skin tightness, erythema, warmth, all are significantly improved from yesterday. -This is a chronic right femoral thrombosis with recanalization seen on duplex ultrasound yesterday (12/30) -Vascular surgery saw the patient and states no procedural intervention is warranted at this time. Patient is able to be anticoagulated, but is a fall risk at baseline per [facility] staff; he ambulates with assistance of a web press roll tender, a walker, a gait belt, and at times, a wheelchair. -Heparin drip was stopped today and patient was switched to anticoagulation via Lovenox -Patient has IVC in place from June 2018 2. Bilateral hydronephrosis -Visualized on ultrasound and CT of kidneys -Patient was evaluated today by urology (Dr. Nelson). No treatment warranted at this time for hydronephrosis, as his creatinine has improved. -Thank you to Drs. Winkler and Omar for their time, collaboration, and insights in regards to the care of our patient 3. Necrotic mass in the right pelvis -Mass extends to invasion of right pelvic sidewall musculature -A CT guided biopsy of the mass was performed today without complication and patient tolerated procedure well. -Once biopsy is done. Patient is okay for discharge from urology standpoint. -Urology will follow-up on pathology results of the mass biopsy and a follow-up appointment will be scheduled in 2-3 weeks at which point a repeat renal ultrasound will be performed 4. Small bowel obstruction -General surgery (Dr. Randolph) saw and evaluated the patient on 12/30. SBO seems resolved. Large inguinal hernia is now reducible. Large hiatal hernia still present. *From a surgical standpoint, the patient is stable. The patient's pelvic mass should be worked up first before thinking about any hernia repair, especially if this is the result of cancer metastasis or recurrence. Patient can follow-up with general surgery as an outpatient. Maintain the patient on regular bowel regimen. -Thank you to Dr. Randolph for his time, collaboration, and insights in regards to the care of our patient 4. Possible aspiration pneumonia likely secondary to recent emesis and large hiatal hernia -bibasilar patchy infiltrates/atelectasis visualized on CT -Patient is currently afebrile with no leukocytosis on CBC. Continue to monitor vitals and CBC. -Incentive spirometry will be given. 5. Hiatal hernia -Visualized on imaging containing fluid-filled portion of stomach -Per general surgery, this is likely the cause of patient's emesis prior to presentation 6. Intellectual disability -Patient is a resident at the [facility] ([facility]). His main nurses are Cristopher -Patient's power of consumer attorney is his niece Aurea Smith, she can be reached at [phone] or [phone] 7. Diabetes mellitus, type II -Continue to monitor and assess patient's alertness -FS q 6 hours -Lispro as per sliding scale 8. Anxiety and mood disorder -c/w patient's home paroxetine and shruthi 9. CAD s/p NV s/p cardiac catheterization 10. h/o bladder and prostate cancer s/p robotic cystoprostatectomy and creation of ileal conduit. 11. h/o recurrent UTIs -UA showed increased white blood cell count, 1+ protein, 1+ bacteria, trace ketones -UA results potentially could be affected by patient's ileal conduit 12. DVT prophylaxis -Patient's heparin drip was stopped and he was started on Lovenox -IVC filter in place from June 2018 Plan/VTE VTE Prophylaxis Ordered?: Yes VS, I&O, 24H, Fishbone Vital Signs/I&O Vital Signs Date Time Temp Pulse Resp B/P (MAP) Pulse Ox O2 Delivery O2 Flow Rate FiO2 12/31/18 06:00 97.2 71 15 117/66 (83) 96 12/28/18 15:30 2.0 12/28/18 14:40 Venturi Mask 12/28/18 06:00 50 I&O- Last 24 Hours up to 6 AM 12/31/18 06:00 Intake Total 1823 ml Output Total 3150 ml Balance -1327 ml Laboratory Data 24H LABS Laboratory Tests 2 12/30/18 12:00: Bedside Glucose (Misc Panel) 148H 12/30/18 17:37: Bedside Glucose (Misc Panel) 147H 12/30/18 20:00: Activated Partial Thromboplast Time 42.6H 12/30/18 20:33: Bedside Glucose (Misc Panel) 149H 12/31/18 03:23: Nucleated Red Blood Cells % (auto) 0.0, Activated Partial Thromboplast Time 141.9*H, Anion Gap 5L, Glomerular Filtration Rate 45.3, Blood Urea Nitrogen 28H, Creatinine 1.56H, Sodium Level 141, Potassium Level 4.0#, Chloride Level 111H, Carbon Dioxide Level 25, Calcium Level 7.4L 12/31/18 06:20: Bedside Glucose (Misc Panel) 119H CBC/BMP Laboratory Tests 12/31/18 03:23 Red Blood Count 3.04 L, Mean Corpuscular Volume 96.1 H, Mean Corpuscular Hemoglobin 30.9, Mean Corpuscular Hemoglobin Concent 32.2, Red Cell Distribution Width 13.5, Calcium Level 7.4 L Microbiology Microbiology 12/27/18 Blood Culture - Preliminary, Resulted No Growth after 72 hours. All specime... 12/27/18 Blood Culture - Preliminary, Resulted No Growth after 72 hours. All specime... 12/31/18 Stool Occult Blood (REJI) - Final, Complete Attending Note Attending Note have personally seen and examined the patient this am. I agree with the finding and the plan of care as documented above in the resident's note. Chronic right femoral thrombus with recanalization no plans for intervention will stop heparin and start lovenox. However will have to discuss with [facility] staff whether he is at high risk for falls then possiby it would be best not to anticoagulate him. Increasing bilateral lower lung infiltrates No fever no white count probably atelectasis. will give incentive spirometer Small bilateral pleural effusions. Large left inguinal hernia with strangulation and persistent SBO pattern in CT scan in that location. Probably a recovering strangulated hernia. Clinically the hernia is reducible easily and patient does not have any features of bowel obstruction. The hernia contains bowel and fluid and is diffusely edematous. This may represent a strangulated hernia. There is a dilated small bowel loop leading into the hernia, again with appearance of smallbowel obstruction at that location. Persistent Moderately severe bilateral hydroureteronephrosis with a delayed nephrogram is compatible with bilateral ureteral obstruction. There is necrotic mass in the right pelvis with extension to an invasion of right pelvic sidewall musculature. There is also abnormal ill-defined soft tissue extending from the posterior margin of the mass into the right greater sciatic foramen. Had biopsy done. JESUS BETHEA PGY-1 Dec 31, 2018 08:38 RAULITO LOPES MD Dec 31, 2018 17:15
[2018-12-31] MEDS: LEVEMIR (INSULIN DETEMIR) 1 UNITS/0.01ML SC SCH (09:21)
--- NOTE | 2018-12-31 09:55 | CR.PDOC ---
General Date of Consultation: Dec 31, [address] Melissa HPI: 83year oldM with a past medical history significant for intellectual disability, resident of [facility]. Admitted to Hospitalist service for aspiration pneumonia and SBO. Vascular surgery is consulted re RLE DVT. The pt was last evaluated by vascular surgery during hospitalization 06/29 re RLE DVT.The Pt was also treated for Rt thigh hematoma and felt to be a poor candidate for AC, IVC filter was placed. PAST MEDICAL HISTORY: Bladder cancer that required a cystectomy with an ileal conduit h/o SBO h/o Non-reducible left inguinal hernia Large Hiatal hernia CAD s/p OR h/o Constipation Intellectually disabled resident of [facility] DM2 CKD H/O Recurrent UTI HTN/HHD/Diastolic CHF h/o Anxiety and impulse control disorders Prostate cancer DVT right lower extremity s/p IVC filter 06/29 Dr Melissa Unsteady gait, walker, gait belt, WC. PAST SURGICAL HISTORY: Roboticassisted radical cystectomy Roboticassisted prostatectomy with bilateral extended pelvic lymph node dissection and intracorporeal ileal conduit urinary diversion SOCIAL HISTORY: Resident of [facility] No history of tobacco use, alcohol use Patient is intellectually disabled, POA is Aurea Smith. [phone] and [phone] FH unable to obtain. ROS: Pt is unable to provide. PE: GEN: 83yoM. No acute distress. A HEENT: Normocephalic, atraumatic. Moist mucous membranes. CHEST: Regular rate and rhythm, +S1, +S2 LUNGS: Clear to auscultation bilaterally. No wheezes, rales, or rhonchi. ABD: Round, soft, non-tender, non-distended. EXT: No lower extremity edema appreciated. The right thigh is noted to be slightly larger but no erythema, TTP, warmth. SKIN: [place], dry, warm. No rashes. NEURO: Alert. Moving UEs and LEs. RLE venous US COMPARISON: US Duplex, Ext,LOWER veins,unilat 06/24/2018 10:24 AM FINDINGS: Right deep veins: This thrombus from the other femoral vein to the distal femoral vein. Findings may be secondary to partially recanalized occlusive thrombus demonstrated previously, although acute thrombus not excluded. Right superficial veins: Unremarkable. Saphenofemoral junction is patent without thrombus. Soft tissues: Unremarkable. IMPRESSION: This thrombus from the other femoral vein to the distal femoral vein. Findings may be secondary to partially recanalized occlusive thrombus demonstrated previously. Acute thrombus not absolutely excluded. Electronically signed by: Mike Jenkins On 12/30/2018 17:47:25 PM A&P: 1. RLE DVT. S/P IVC filter 06/[address] Melissa. The Pt had been treated for Rt thigh hematoma and felt to be a poor candidate for AC, therefore IVC filter was placed. According to technical communication teacher, the pt has unsteady gait and ambulates with walker, gait belt, WC. Last fall approximately 2 weeks ago when his LEs felt weak, had some bruising. The pt is reviewed and discussed with Dr Melissa. Currently on Heparin gtt. Consider AC if pt is determined to be a candidate for AC per primary service. Recommend elevation. Outpt FU with Dr Melissa's office after d/c. Vital Signs/I&O Vital Signs Date Time Temp Pulse Resp B/P (MAP) Pulse Ox O2 Delivery O2 Flow Rate FiO2 12/31/18 06:00 97.2 71 15 117/66 (83) 96 12/28/18 15:30 2.0 12/28/18 14:40 Venturi Mask 12/28/18 06:00 50 I&O- Last 24 Hours up to 6 AM 12/31/18 06:00 Intake Total 1823 ml Output Total 3150 ml Balance -1327 ml Laboratory Data Labs 24H Laboratory Tests 2 12/30/18 12:00: Bedside Glucose (Misc Panel) 148H 12/30/18 17:37: Bedside Glucose (Misc Panel) 147H 12/30/18 20:00: Activated Partial Thromboplast Time 42.6H 12/30/18 20:33: Bedside Glucose (Misc Panel) 149H 12/31/18 03:23: Nucleated Red Blood Cells % (auto) 0.0, Activated Partial Thromboplast Time 141.9*H, Anion Gap 5L, Glomerular Filtration Rate 45.3, Blood Urea Nitrogen 28H, Creatinine 1.56H, Sodium Level 141, Potassium Level 4.0#, Chloride Level 111H, Carbon Dioxide Level 25, Calcium Level 7.4L 12/31/18 06:20: Bedside Glucose (Misc Panel) 119H CBC/BMP Laboratory Tests 12/31/18 03:23 Red Blood Count 3.04 L, Mean Corpuscular Volume 96.1 H, Mean Corpuscular Hemoglobin 30.9, Mean Corpuscular Hemoglobin Concent 32.2, Red Cell Distribution Width 13.5, Calcium Level 7.4 L Microbiology Microbiology 12/27/18 Blood Culture - Preliminary, Resulted No Growth after 72 hours. All specime... 12/27/18 Blood Culture - Preliminary, Resulted No Growth after 72 hours. All specime... 12/31/18 Stool Occult Blood (REJI) - Final, Complete Allergies Coded Allergies: povidone-iodine (Verified Allergy, Intermediate, Hives, 09/12/18) latex (Verified Allergy, Mild, Risk, 09/12/18) Home Medications Scheduled Ascorbic Acid (Vitamin C) 250 Mg Tab.chew, 250 MG PO BID, (Reported) Calcium Carbonate/Vitamin D3 (Calcium 500-Vit D3 200 Tablet) 1 Each Tablet, 1 TAB PO BID, (Reported) Carbamide Peroxide (Debrox) 15 Ml Drops, 1 DROP AU 2XWK, (Reported) SUNDAY AND SUNDAY AT QHS Docusate Sodium (Colace) 100 Mg Cap, 100 MG PO BID, (Reported) Ferrous Sulfate (Ferrous Sulfate) 325 Mg Tab, 325 MG PO BID, (Reported) Insulin Detemir (Levemir) 1 Units/0.01 Ml Susp, 18 UNITS SC DAILY, (Reported) L.acidoph/L.bulg/B.bif/S.therm (Bacid Caplet) 1 Tab Tab, 1 TAB PO BID, (Reported) Lactulose (Lactulose) 10 Gm/15 Ml Solution, 15 ML PO DAILY, (Reported) Omeprazole (Omeprazole) 20 Mg Cap, 20 MG PO DAILY, (Reported) Paroxetine HCl (Paxil) 40 Mg Tab, 40 MG PO QHS, (Reported) TAKES WITH 20MG FOR 60MG TOTAL Paroxetine HCl (Paxil) 20 Mg Tab, 20 MG PO QHS, (Reported) TAKES WITH 40MG FOR 60MG TOTAL Polyethylene Glycol 3350 (Miralax) 17 Gm Powd.pack, 17 GM PO DAILY, (Reported) Pravastatin Sodium (Pravastatin Sodium) 40 Mg Tab, 40 MG PO QHS, (Reported) Quetiapine Fumarate (Quetiapine Fumarate ER) 200 Mg Tab.er.24h, 200 MG PO QPM, (Reported) 1630 Sennosides/Docusate Sodium (Senna Plus Tablet) 1 Tab Tab, 1 TAB PO BID, (Reported) Sitagliptin Phosphate (Januvia) 25 Mg Tab, 25 MG PO QHS, (Reported) Scheduled PRN Bisacodyl (Bisacodyl) 10 Mg Sup, 10 MG MT Q4DP PRN for CONSTIPATION, (Reported) ON DAY 4 WITHOUT A BM Glimepiride (Glimepiride) 1 Mg Tablet, 1 MG PO DAILY PRN for BS>160, (Reported) TAKES WITH BREAKFAST OR FIRST MAIN MEAL OF DAY IF BS>160 Magnesium Hydroxide (Milk of Magnesia) 400 Mg/5 Ml Oral.susp, 30 ML PO Q3RD PRN for CONSTIPATION, (Reported) 3RD DAY WITH NO BM: MIXED WITH 8 OZ OF PRUNE JUICE Ondansetron HCl (Ondansetron HCl) 4 Mg Tablet, 4 MG PO Q6H PRN for NAUSEA, (Reported) Zinc Oxide (Desitin) 454 Gm Cream..g., 1 DOSE TOP QID PRN for RASH/ITCHING, (Reported) APPLY TO GROIN AREA Ana Middleton Dec 31, 2018 09:52
--- NOTE | 2018-12-31 13:02 | IPNPDOC ---
Subjective Review oF Systems Chief Complaint The patient is a 83-year-old male admitted with a reason for visit of Aspiration Pnemonia,Small Bowel Obstruction. Events since Last Encounter No acute events. Objective Physical Examination General Exam: Cooperative, No Acute Distress Heart Exam: Positive: Tachycardic, Normal S1, Normal S2; Negative: Gallops, Rubs ABDOMEN EXAM: Soft, Other (stoma in RLQ pink and healthy w/ clear urine drain ing); No: BS Hypoactive, Mass Vital Signs/I&O Vital Signs Date Time Temp Pulse Resp B/P (MAP) Pulse Ox O2 Delivery O2 Flow Rate FiO2 12/31/18 06:00 97.2 71 15 117/66 (83) 96 12/28/18 15:30 2.0 12/28/18 14:40 Venturi Mask 12/28/18 06:00 50 I&O- Last 24 Hours up to 6 AM 12/31/18 05:59 Intake Total 2065 ml Output Total 2350 ml Balance -285 ml Laboratory Data Labs 24H Laboratory Tests 2 12/30/18 17:37: Bedside Glucose (Misc Panel) 147H 12/30/18 20:00: Activated Partial Thromboplast Time 42.6H 12/30/18 20:33: Bedside Glucose (Misc Panel) 149H 12/31/18 03:23: Activated Partial Thromboplast Time 141.9*H, Nucleated Red Blood Cells % (auto) 0.0, Anion Gap 5L, Glomerular Filtration Rate 45.3, Blood Urea Nitrogen 28H, Creatinine 1.56H, Sodium Level 141, Potassium Level 4.0#, Chloride Level 111H, Carbon Dioxide Level 25, Calcium Level 7.4L 12/31/18 06:20: Bedside Glucose (Misc Panel) 119H 12/31/18 09:51: Activated Partial Thromboplast Time 43.2H 12/31/18 11:45: Bedside Glucose (Misc Panel) 185H CBC/BMP Laboratory Tests 12/31/18 03:23 Red Blood Count 3.04 L, Mean Corpuscular Volume 96.1 H, Mean Corpuscular Hemoglobin 30.9, Mean Corpuscular Hemoglobin Concent 32.2, Red Cell Distribution Width 13.5, Calcium Level 7.4 L FSBS Laboratory Tests Test 12/30/18 17:37 7/22/19 20:33 12/31/18 06:20 12/31/18 11:45 Range/Units Bedside Glucose (Misc Panel) 147 149 119 185 83-110 MG/DL Microbiology Microbiology 12/27/18 Blood Culture - Preliminary, Resulted No Growth after 72 hours. All specime... 12/27/18 Blood Culture - Preliminary, Resulted No Growth after 72 hours. All specime... 12/31/18 Stool Occult Blood (REJI) - Final, Complete Assessment/Plan Date Seen The patient was seen on 12/31/18. Patient Summary This is an 83 y/o M w/ Stage IV [id number] bladder cancer and pT2c [place] 5 prostate cancer s/p robotic radical cystoprostatectomy w/ BPLND (extended) an ileal conduit urinary diversion on 09/19/16, admitted to the hospital for a SBO, b/l hydroureteronephrosis, and a right pelvic mass. On CT yesterday his hydro persists, but his Cr is back down at baseline. The CT w/ contrast confirms that this is a mass in his right pelvis. I recommend a CT guided biopsy of this to determine the cause. Plan/VTE VTE Prophylaxis Ordered?: Yes VTE Exclusion Mechanical Proph: N/A:VTE Prophy Ordered VTE Exclusion Pharmacological: N/A:VTE Prophy Ordered Plan - recommend CT guided biopsy of right pelvic mass - for the hydro no treatment is recommended since his Cr has trended back down - once biopsy is done he is ok for discharge from the urology standpoint - we will f/u on pathology results and schedule f/u in 2-3 wks and will repeat a renal US at that time GAVINO YAÑEZ MD Dec 31, 2018 13:02
[2018-12-31 14:00] VITALS: BP 136/69
[2018-12-31] MEDS ORDERED: LIDOCAINE 1% MDV 20ML VIAL As Ordered ONE (15:27)
[2018-12-31 16:35] VITALS: BP 119/75
--- NOTE | 2018-12-31 17:09 | REP ---
CT-GUIDED RIGHT PELVIC MASS BIOPSY The procedure was performed under the direct supervision of Dr. Islas. The patient has a history of A necrotic mass in the right pelvis with extension into an invasion of the right pelvic side wall musculature seen on a previous CT scan dated 12/30/2018. The risks and benefits of the procedure were explained and informed consent was obtained by the health care proxy. The right pelvic mass was localized using CT guidance. The skin was prepped and draped in a sterile fashion. 1% lidocaine was used as a local anesthetic. Using CT guidance a 19/20 gauge coaxial needle biopsy system was inserted and advanced into the mass. Four core biopsy samples were obtained and sent to lab. The patient tolerated the procedure well and there were no immediate complications. After the appropriate amount of monitored convalescence the patient was discharged from the department. Reviewed by NOEMY Castro 12/31/2018 04:41 P Electronically Signed by Dmitri Islas MD 12/31/2018 05:00 P
[2018-12-31] MEDS: QUEtiapine FUMARATE **XR** 200MG TABLET PO SCH (17:14)
[2018-12-31] MEDS: ENOXAPARIN 60 MG/0.6 ML SYR (J1650) SC SCH (18:37)
[2018-12-31] MEDS: PARoxetine 20 MG TAB PO SCH (21:37)
[2018-12-31] MEDS: SITagliptin 50 MG TAB (JANUVIA) PO SCH (21:37)
[2018-12-31] MEDS: PANTOPRAZOLE 40MG INJ (PROTONIX) (C9113) IV SCH (21:37)
[2018-12-31] MEDS: PRAVASTATIN 20 MG TAB PO SCH (21:37)
[2018-12-31 22:00] VITALS: BP 140/72
[2019-01-01] MEDS: PIPERACILLIN/TAZOBACTAM SOD 3.375 GM in D5W MINI-BAG PLUS 50 ML IV SCH ×4 (05:56→23:31)
[2019-01-01] MEDS: ENOXAPARIN 60 MG/0.6 ML SYR (J1650) SC SCH ×2 (05:57→17:12)
[2019-01-01 06:00] VITALS: BP 118/70
[2019-01-01 06:07] LABS: HEMATOCRIT 31.5 % (42.0-52.0); HEMOGLOBIN 10.4 g/dl (13.5-17.5); MEAN CORPUSCULAR VOLUME 93.8 fl (80.0-96.0); PLATELET COUNT, AUTOMATED 141 10^3/uL (150-450); RED BLOOD COUNT 3.36 10^6/uL (4.30-6.10); WHITE BLOOD COUNT 5.3 10^3/uL (4.0-10.0)
[2019-01-01 06:38] LABS: CALCIUM LEVEL 8.2 MG/DL (8.8-10.2); CREATININE FOR GFR 1.52 MG/DL (0.70-1.30); GLOMERULAR FILTRATION RATE 46.6 (>35)
[2019-01-01] MEDS: HumaLOG INSULIN (NovoLOG) PER UNIT SC SCH ×4 (07:24→21:00)
[2019-01-01] MEDS: MIRALAX *UNIT DOSE* 17GM PACKET PO SCH (08:05)
[2019-01-01] MEDS: DOCUSATE SODIUM 100 MG CAP PO SCH (08:05)
[2019-01-01] MEDS: GLIMEPIRIDE 1 MG TABLET PO SCH (08:05)
[2019-01-01] MEDS: LEVEMIR (INSULIN DETEMIR) 1 UNITS/0.01ML SC SCH (09:26)
[2019-01-01 14:00] VITALS: BP 136/73
[2019-01-01] MEDS: QUEtiapine FUMARATE **XR** 200MG TABLET PO SCH (15:52)
--- NOTE | 2019-01-01 18:29 | IPNPDOC ---
Subjective Date Seen The patient was seen on 01/01/19. Subjective Chief Complaint/HPI Teddy was seen and examined today lying in bed. He continues to eat and drink without any issues. Right lower extremity remains without erythema visualized on Sunday (12/30), but right foot shows increased pedal edema from yesterday (12/31). General: Reports: ROS Unobtainable (due to patient's mental status and history of intellectual disability) Objective Physical Examination General Exam: Positive: Alert, No Acute Distress ENT Exam: Positive: Atraumatic (normocephalic) Chest Exam: Positive: Diminished (due to body positioning and challenges in having patient sit up), Other (. Breathing room air); Negative: Rhonchi, Wheezing Heart Exam: Positive: Rate Normal, Normal S1, Normal S2; Negative: Gallops, Rubs Abdomen Exam: Positive: Normal bowel sounds (, tympanic. Bowel sounds from Sunday are no longer present.), Soft (abdomen was more soft on palpation than either the previous Sunday or Sunday's exams), Mass (right pelvic mass); Negative: Tenderness (Abdominal distention significantly decreased from yesterday) Extremity Exam: Positive: Edema (right lower extremity edema continues to be improved from 12/30; right pedal edema seems to be increased from yesterday (12/31)), Normal pulses (, 2+ radial and posterior tibial pulses bilaterally), Swelling (Mild swelling and erythema of the right thigh in comparison to the left thigh, no erythema on visualization of right thigh; no increased warmth of right thigh versus left thigh), Other (palpable mass on proximal left anterior/lateral lower extremity inferior to the patella) Psych Exam: Negative: Mental status NL (patient has a history of intellectual disability; he was in a confused state, dismissive at times and bothered by exam and associated questions), Oriented x 3 (, awake and oriented to self only; maintain eye contact at times; bonded to touch and palpation during exam) Assessment /Plan Assessment --Patient not discharged today staff at [facility] can make preparations for Teddy's return. Due to Teddy's high risk for complications, it is encouraged that [facility] stass discuss advance directives with family in the near future.-- 1. Right lower extremity DVT Right lower extremity erythema from 721, now resolved. Still mild swelling of right lower extremity in comparison to left lower extremity. Mildly increased right pedal edema from yesterday -This is a chronic right femoral thrombosis with recanalization seen on duplex ultrasound yesterday (12/30) -Vascular surgery saw the patient and states no procedural intervention is war ranted at this time. -After discussing patient's baseline ambulation with [facility] meal miller, it was deci ded to take patient off of anticoagulation via Lovenox. He remains a high risk for mechanical falls and the risks of anticoagulation seemed to outweigh benefits at this point -Patient has IVC in place from June 2018 2. Bilateral hydronephrosis -Visualized on ultrasound and CT of kidneys -Patient was evaluated by urology. No treatment warranted at this time for hydronephrosis, as creatinine is improved. -Patient to follow-up as outpatient with [facility] urology 3. Necrotic mass in the right pelvis -Mass extends to invasion of right pelvic sidewall musculature -A CT guided biopsy of the mass was performed yesterday -Once biopsy results are known, patient is okay for discharge from urology standpoint. -Urology will follow-up on pathology results of the mass biopsy and a follow-up appointment will be scheduled in 2-3 weeks at which point a repeat renal ultrasound will be performed 4. Small bowel obstruction -General surgery saw and evaluated the patient on 12/30. SBO seems resolved. L arge inguinal hernia is now reducible. Large hiatal hernia still present. From a surgical standpoint, the patient is stable. The patient's pelvic mass should be worked up first before thinking about any hernia repair, especially if this is the result of cancer metastasis or recurrence. Patient can follow-up with general surgery as an outpatient. Maintain the patient on regular bowel regimen. 4. Possible aspiration pneumonia likely secondary to recent emesis and large hiatal hernia -bibasilar patchy infiltrates/atelectasis visualized on CT -Patient is currently afebrile with no leukocytosis on CBC. Continue to monitor vitals and CBC. -Incentive spirometry will be given. 5. Hiatal hernia -Visualized on imaging containing fluid-filled portion of stomach -Per general surgery, this is likely the cause of patient's emesis prior to presentation 6. Intellectual disability -Patient is a resident at the [facility] ([facility]). His main nurses are Rhonda and Maggi -Patient's power of tax attorney is his niece Aurea Smith, she can be reached at [phone] or [phone] 7. Diabetes mellitus, type II -Continue to monitor and assess patient's alertness -FS q 6 hours -Lispro as per sliding scale 8. Anxiety and mood disorder -c/w patient's home paroxetine and shruthi 9. CAD s/p [place] s/p cardiac catheterization 10. h/o bladder and prostate cancer s/p robotic cystoprostatectomy and creation of ileal conduit. 11. h/o recurrent UTIs -UA showed increased white blood cell count, 1+ protein, 1+ bacteria, trace ketones -UA results potentially could be affected by patient's ileal conduit 12. DVT prophylaxis -Patient's heparin drip was stopped and he was started on Lovenox -IVC filter in place from June 2018 I saw and evaluated the patient. I agree with the findings and plan of care as documented in the above note Plan/VTE VTE Prophylaxis Ordered?: Yes VTE Exclusion Mechanical Proph: N/A:VTE Prophy Ordered VTE Exclusion Pharmacological: N/A:VTE Prophy Ordered VS, I&O, 24H, Fishbone Vital Signs/I&O Vital Signs Date Time Temp Pulse Resp B/P (MAP) Pulse Ox O2 Delivery O2 Flow Rate FiO2 01/01/19 14:00 97.8 75 17 136/73 (94) 95 12/28/18 15:30 2.0 12/28/18 14:40 Venturi Mask 12/28/18 06:00 50 I&O- Last 24 Hours up to 6 AM 01/01/19 05:59 Intake Total 1152 ml Output Total 3100 ml Balance -1948 ml Laboratory Data 24H LABS Laboratory Tests 2 12/31/18 20:20: Bedside Glucose (Misc Panel) 90 01/01/19 05:44: Nucleated Red Blood Cells % (auto) 0.0, Anion Gap 6L, Glomerular Filtration Rate 46.6, Blood Urea Nitrogen 24H, Creatinine 1.52H, Sodium Level 138, Potassium Level 4.0, Chloride Level 108H, Carbon Dioxide Level 24, Calcium Level 8.2L 01/01/19 09:08: Bedside Glucose (Misc Panel) 173H 01/01/19 11:30: Bedside Glucose (Misc Panel) 161H 01/01/19 16:45: Bedside Glucose (Misc Panel) 150H CBC/BMP Laboratory Tests 01/01/19 05:44 Red Blood Count 3.36 L, Mean Corpuscular Volume 93.8, Mean Corpuscular Hemoglobin 31.0, Mean Corpuscular Hemoglobin Concent 33.0, Red Cell Distribution Width 13.2, Calcium Level 8.2 L Microbiology Microbiology 12/27/18 Blood Culture - Final, Complete NO GROWTH AFTER 5 DAYS 12/27/18 Blood Culture - Final, Complete NO GROWTH AFTER 5 DAYS 12/31/18 Stool Occult Blood (REJI) - Final, Complete JESUS BETHEA PGY-1 Jan 01, 2019 18:29 KVNG ALVAREZ MD Jan 02, 2019 18:45
[2019-01-01] MEDS: PANTOPRAZOLE 40MG INJ (PROTONIX) (C9113) IV SCH (21:08)
[2019-01-01] MEDS: PARoxetine 20 MG TAB PO SCH (21:09)
[2019-01-01] MEDS: PRAVASTATIN 20 MG TAB PO SCH (21:09)
[2019-01-01] MEDS: SITagliptin 50 MG TAB (JANUVIA) PO SCH (21:09)
[2019-01-01 22:00] VITALS: BP 134/82
[2019-01-02] MEDS: PIPERACILLIN/TAZOBACTAM SOD 3.375 GM in D5W MINI-BAG PLUS 50 ML IV SCH (05:27)
[2019-01-02] MEDS: ENOXAPARIN 60 MG/0.6 ML SYR (J1650) SC SCH (05:27)
[2019-01-02 06:00] VITALS: BP 129/72
[2019-01-02 06:26] LABS: HEMATOCRIT 32.1 % (42.0-52.0); HEMOGLOBIN 10.5 g/dl (13.5-17.5); MEAN CORPUSCULAR HGB CONC 32.7 g/dl (32.0-36.5); MEAN CORPUSCULAR VOLUME 94.7 fl (80.0-96.0); PLATELET COUNT, AUTOMATED 136 10^3/uL (150-450); RED BLOOD COUNT 3.39 10^6/uL (4.30-6.10)
[2019-01-02 06:47] LABS: CALCIUM LEVEL 8.2 MG/DL (8.8-10.2); CREATININE FOR GFR 1.63 MG/DL (0.70-1.30); POTASSIUM SERUM 3.9 MEQ/L (3.5-5.1)
[2019-01-02] MEDS: HumaLOG INSULIN (NovoLOG) PER UNIT SC SCH (07:56)
[2019-01-02] MEDS: LEVEMIR (INSULIN DETEMIR) 1 UNITS/0.01ML SC SCH (07:56)
[2019-01-02] MEDS: MIRALAX *UNIT DOSE* 17GM PACKET PO SCH (07:57)
[2019-01-02] MEDS: GLIMEPIRIDE 1 MG TABLET PO SCH (07:57)
[2019-01-02] MEDS: DOCUSATE SODIUM 100 MG CAP PO SCH (07:57)
--- NOTE | 2019-01-02 20:08 | DS.PDOC ---
Discharge Summary General Date of Admission Dec 27, 2018 at 14:10 Date of Discharge 01/02/2019 Primary Care Physician: BI ROSENBAUM MD [facility] Attending Physician: KVNG ALVAREZ MD Specialist/Consultants Involve: GAVINO YAÑEZ MD Specialist/Consultants Involve Dr. Pancho Melissa (vascular surgery); Dr. Davies (general surgery); Dr. Alejo Winkler (urology) Discharge Summary PROCEDURES PERFORMED DURING STAY: CT-guided right pelvic mass biopsy, 12/31 ADMITTING DIAGNOSES: 1. Aspiration pneumonia. 2. Small bowel obstruction DISCHARGE DIAGNOSES: 1. Aspiration pneumonia. 2. Small bowel obstruction. 3. Bilateral hydronephrosis. 4. Right lower extremity deep vein thrombosis. 5. Right pelvic mass. 6. Left inguinal hernia. 7. Mental retardation. 8. History of bladder cancer and prostate cancer requiring ileal conduit. 9. Essential hypertension. 10. Diabetes mellitus. 11. Diastolic congestive heart failure. 12. Chronic kidney disease. 13. Coronary artery disease status post TX. 14. History of recurrent UTIs COMPLICATIONS/CHIEF COMPLAINT: Aspiration Pnemonia,Small Bowel Obstruction. HISTORY OF PRESENT ILLNESS: Teddy is an 83-year-old male with a pertinent past medical history of intellectual disability, h/o hiatal and inguinal hernias, recurrent UTIs, small bowel obstructions, bladder and prostate cancer with a resulting ileal conduit, CAD s/p TX, and CKD, who presented to the [facility] ED by ambulance after experiencing brown-colored emesis 3 overnight. After the most recent episode of emesis at 3 AM this morning, with also an accompanying low blood pressure, one of Teddy's nurses at the [facility] ([facility]) - - where he resides - - called an ambulance. All of the HPI was provided by a [facility] nurse who was in the ED with Teddy, since Teddy is significantly intellectually disabled and only responded to questions with limited 1-3 word answers. Teddy's usual diet consists of ground-up food, and he was eating and drinking without any issues from Sunday through Sunday of this week, but beginning with dinner yesterday (12/26), he wouldn't eat or drink. This is atypical for him. Around midnight, Teddy had his first episode of emesis with accompanying gas pain. By 3 AM this morning, Teddy had had 2 more episodes of emesis which his nurse described as "brownish vomit." His nurse states that over the last 1-2 weeks, Teddy has experienced gas pains and has had multiple bowel accidents resulting from not making it to the commode/toilet in time. Teddy did not have any recent fevers, sick contacts, or medication changes. He usually ambulates with a walker, and is chronically unsteady, dragging his left foot. Teddy was hospitalized multiple times over the last 8 months. In late May, he was diagnosed with a small bowel obstruction, and was seen this past spring for a recurrent UTI and hypotension. Teddy's PCP is Dr. Rosenbaum. In the ED, a CBC, UA, 2 blood cultures, chest CT, abdominal/pelvis CT normal saline, Zosyn, and EKG were all ordered. Teddy was given Zofran, Zosyn, and a PO challenge. CT imaging showed a high-grade SBO due to mesenteric twisting in the left lower quadrant, as well as a dilated small bowel loop leading into the hernia sac that likely is a second area of SBO. Bilateral hydronephrosis that had worsened from previous imaging, and bibasilar patchy infiltrates/atelectasis were also seen. Teddy's serum glucose, BUN, and creatinine were elevated, with a GFR indicating CKD. UA showed possible UTI, but this is likely affected by Teddy's ileal conduit. Teddy was admitted to the hospital under the care of the hospitalist team. Teddy was also evaluated today by General Surgery and Urology. HOSPITAL COURSE: General surgery saw the patient in the ED and ordered an NG tube for decompression of the stomach and distended small bowel. Initial thoughts on distention were likely small bowel obstruction versus ileus. Surgery also stated that patient's large hiatal hernia and inguinal hernia were made worse by distention. It was believed patient's nausea and emesis was likely secondary to his hiatal hernia. Patient was hyperglycemic, so insulin sliding scale was administered and fingerstick checks every 6 hours were ordered. Urology evaluated the patient due to visualized bilateral hydronephrosis on imaging. Ureteral stent placement was contraindicated due to patient's ileal conduit. Primary initial emphasis was on small bowel obstruction resolution, to assess if this would improve the hydronephrosis. On the morning of 12/28, patient manually removed his NG tube himself. General surgery evaluated patient again on 12/28 and the small bowel obstruction appeared to have resolved by itself. There was not much output from the NG tube prior to its removal. Patient's abdomen was less distended and his inguinal hernia was now fully reducible. Fleets enema and MiraLAX were administered for patient's chronic constipation. Surgery felt that workup of right pelvic mass was necessary prior to potentially fixing patient's hernia. Due to patient's history of cancer, possibility of metastases or recurrence needed to be evaluated. Ross jackson was instructed to follow up with general surgery as outpatient and to maintain regular bowel regimen. After small bowel obstruction resolved, urology felt a CT urogram was best to assess for persistent hydronephrosis and possible ureteral obstruction. If patient's creatinine was still too high, renal ultrasound could be used as an alternative form of imaging. Throughout the day on 12/30, patient had progressively worsening right lower extremity erythema, warmth, edema, and skin tautness. There was no crepitus or skin mottling on exam. Patient has a history of right lower extremity DVT in March 2018, for which an IVC filter was placed in June 2018. Vascular surgery evaluated the patient, a duplex lower extremity ultrasound was performed, and anticoagulation was switched to a heparin drip. Results of vascular ultrasound could not rule out acute thrombus, though it was more likely there was a partial recanalization of the previous occlusive thrombus. When patient was reevaluated on 12/31, his DVT symptoms were significantly improved, with the exception of lingering right pedal edema. Vascular surgery deemed no procedural intervention was warranted and the heparin drip was stopped. Patient was then switched to Lovenox for anticoagulation. Urology evaluated patient again and stated that patient was okay for discharge once right pelvic mass biopsy was administered. No further urologic treatment was warranted since patient's creatinine was trending down. Urology would like to follow-up on an outpatient basis once pathology results are known, and potentially perform a repeat renal ultrasound. DISCHARGE MEDICATIONS: Please see below. ALLERGIES: Please see below. PHYSICAL EXAMINATION ON DISCHARGE: VITAL SIGNS: Please see below. General Exam: Positive: Alert, No Acute Distress ENT Exam: Positive: Atraumatic (normocephalic) Chest Exam: Positive: Diminished (due to body positioning and challenges in having patient sit up), Other (. Breathing room air); Negative: Rhonchi, Wheezing Heart Exam: Positive: Rate Normal, Normal S1, Normal S2; Negative: Gallops, Rubs Abdomen Exam: Positive: Normal bowel sounds ( tympanic bowel sounds from Sunday, 12/27 are no longer present.), Soft (abdomen was more soft on palpation than either the previous Sunday, 12/27 or Sunday, 12/28 exams), Mass (right pelvic mass); Negative: Tenderness (Abdominal distention significantly decreased from yesterday) Extremity Exam: Positive: Edema (right lower extremity edema continues to be improved from 12/30; right pedal edema seems to be increased from yesterday (12/31)), Normal pulses (, 2+ radial and posterior tibial pulses bilaterally), Swelling (Mild swelling and erythema of the right thigh in comparison to the left thigh, no erythema on visualization of right thigh; no increased warmth of right thigh versus left thigh), Other (palpable mass on proximal left anterior/lateral lower extremity inferior to the patella) Psych Exam: Patient has a history of intellectual disability; he was in a confused state, dismissive at times and bothered by exam and associated questions; Oriented x1 (awake and oriented to self only; maintained eye contact at times; responded to touch and palpation during exam) LABORATORY DATA: Please see below. IMAGING: Chest CT without contrast, 12/27- showed patchy bibasilar infiltrates/atelectasis, greatest in the lingula, increased since prior study of 03/20/2018. Abdominal/pelvis CT without contrast, 12/27- showed a high grade small bowel obstruction caused by mesenteric twisting in the left lower quadrant. More inferiorly a left inguinal hernia is again seen containing small bowel. A significantly dilated small bowel loop leads into the hernia sac. This likely represents a second point of small bowel obstruction. There is fluid and edema in the hernia sac with possible strangulation. Moderately severe bilateral hydronephrosis has increased since prior study of 12/03/2018. Possible right pelvic mass, not well evaluated due to the lack of oral and IV contrast. Estimated diameter of the mass 5 cm. Renal ultrasound, 12/30- showed moderate bilateral hydronephrosis. No other significant changes from the prior exam. CT urogram abdomen and pelvis, 12/30- showed increasing bilateral lower lung infiltrates. Small bilateral pleural effusions. Previously noted small bowel obstruction pattern is improved. However, there is still a large left inguinal hernia which contains bowel and fluid and is diffusely edematous. This may represent a strangulated hernia. There is a dilated small bowel loop leading into the hernia, again with appearance of small bowel obstruction at that location. There is no free air. There is mild free fluid in the pelvis. Moderately severe bilateral hydroureteronephrosis with a delayed nephrogram is compatible with bilateral ureteral obstruction. There is a necrotic mass in the right pelvis with extension to an invasion of right pelvic sidewall musculature. There is also abnormal ill-defined soft tissue extending from the posterior margin of the mass into the right greater sciatic foramen. Vascular ultrasound, 12/30- showed a thrombus from the other femoral vein to the distal femoral vein. Findings may be secondary to partially recanalized occlusive thrombus demonstrated previously. Acute thrombus not absolutely excluded. PROGNOSIS: Poor ACTIVITY: As tolerated DIET: As tolerated DISPOSITION: 01 Home, Self-Care. DISCHARGE INSTRUCTIONS & ITEMS TO FOLLOWUP ON OUTPATIENT: 1. Follow-up with primary care physician in the next 7-10 days. 2. Follow-up as outpatient with urology in 2-3 weeks once pathology results from right pelvic mass are known and for repeat renal ultrasound. 3. Follow-up with general surgery in the next 2-3 weeks and maintain regular bowel regimen. 4. If symptoms that caused patient to present on this admission should return and/or worsen, or if patient should experience an acute medical emergency of any kind, patient is instructed to return to the emergency department. DISCHARGE CONDITION: Stable TIME SPENT ON DISCHARGE: I saw and evaluated the patient. I agree with the findings and plan of care as documented in the documenters note. I spent 45 minutes coordinating this patient's discharge. Vital Signs/I&Os Vital Signs Date Time Temp Pulse Resp B/P (MAP) Pulse Ox O2 Delivery O2 Flow Rate FiO2 01/02/19 06:00 96.8 81 16 129/72 (91) 96 12/28/18 15:30 2.0 12/28/18 14:40 Venturi Mask 12/28/18 06:00 50 I&O- Last 24 Hours up to 6 AM 01/02/19 06:00 Intake Total 674 ml Output Total 2400 ml Balance -1726 ml Laboratory Data Labs 24H Laboratory Tests 2 01/01/19 20:59: Bedside Glucose (Misc Panel) 138H 01/02/19 05:44: Nucleated Red Blood Cells % (auto) 0.0, Anion Gap 5L, Glomerular Filtration Rate 43.0, Blood Urea Nitrogen 24H, Creatinine 1.63H, Sodium Level 139, Potassium Level 3.9, Chloride Level 109H, Carbon Dioxide Level 25, Calcium Level 8.2L CBC/BMP Laboratory Tests 01/02/19 05:44 Red Blood Count 3.39 L, Mean Corpuscular Volume 94.7, Mean Corpuscular Hemoglobin 31.0, Mean Corpuscular Hemoglobin Concent 32.7, Red Cell Distribution Width 13.4, Calcium Level 8.2 L FSBS Laboratory Tests Test 01/01/19 20:59 Range/Units Bedside Glucose (Misc Panel) 138 83-110 MG/DL Microbiology Microbiology 12/27/18 Blood Culture - Final, Complete NO GROWTH AFTER 5 DAYS 12/27/18 Blood Culture - Final, Complete NO GROWTH AFTER 5 DAYS 12/31/18 Stool Occult Blood (REJI) - Final, Complete Discharge Medications Scheduled Ascorbic Acid (Vitamin C) 250 Mg Tab.chew, 250 MG PO BID, (Reported) Calcium Carbonate/Vitamin D3 (Calcium 500-Vit D3 200 Tablet) 1 Each Tablet, 1 TAB PO BID, (Reported) Carbamide Peroxide (Debrox) 15 Ml Drops, 1 DROP AU 2XWK, (Reported) SUNDAY AND SUNDAY AT [facility] Docusate Sodium (Colace) 100 Mg Cap, 100 MG PO BID, (Reported) Ferrous Sulfate (Ferrous Sulfate) 325 Mg Tab, 325 MG PO BID, (Reported) Insulin Detemir (Levemir) 1 Units/0.01 Ml Susp, 18 UNITS SC DAILY, (Reported) L.acidoph/L.bulg/B.bif/S.therm (Bacid Caplet) 1 Tab Tab, 1 TAB PO BID, (Reported) Lactulose (Lactulose) 10 Gm/15 Ml Solution, 15 ML PO DAILY, (Reported) Omeprazole (Omeprazole) 20 Mg Cap, 20 MG PO DAILY, (Reported) Paroxetine HCl (Paxil) 40 Mg Tab, 40 MG PO QHS, (Reported) TAKES WITH 20MG FOR 60MG TOTAL Paroxetine HCl (Paxil) 20 Mg Tab, 20 MG PO QHS, (Reported) TAKES WITH 40MG FOR 60MG TOTAL Polyethylene Glycol 3350 (Miralax) 17 Gm Powd.pack, 17 GM PO DAILY, (Reported) Pravastatin Sodium (Pravastatin Sodium) 40 Mg Tab, 40 MG PO QHS, (Reported) Quetiapine Fumarate (Quetiapine Fumarate ER) 200 Mg Tab.er.24h, 200 MG PO QPM, (Reported) 1630 Sennosides/Docusate Sodium (Senna Plus Tablet) 1 Tab Tab, 1 TAB PO BID, (Repor almas) Sitagliptin Phosphate (Januvia) 25 Mg Tab, 25 MG PO QHS, (Reported) Scheduled PRN Bisacodyl (Bisacodyl) 10 Mg Sup, 10 MG NC Q4DP PRN for CONSTIPATION, (Reported) ON DAY 4 WITHOUT A BM Glimepiride (Glimepiride) 1 Mg Tablet, 1 MG PO DAILY PRN for BS>160, (Reported) TAKES WITH BREAKFAST OR FIRST MAIN MEAL OF DAY IF BS>160 Magnesium Hydroxide (Milk of Magnesia) 400 Mg/5 Ml Oral.susp, 30 ML PO Q3RD PRN for CONSTIPATION, (Reported) 3RD DAY WITH NO BM: MIXED WITH 8 OZ OF PRUNE JUICE Ondansetron HCl (Ondansetron HCl) 4 Mg Tablet, 4 MG PO Q6H PRN for NAUSEA, (Reported) Zinc Oxide (Desitin) 454 Gm Cream..g., 1 DOSE TOP QID PRN for RASH/ITCHING, (Reported) APPLY TO GROIN AREA Allergies Coded Allergies: povidone-iodine (Verified Allergy, Intermediate, Hives, 09/12/18) latex (Verified Allergy, Mild, Risk, 09/12/18) JESUS BETHEA PGY-1 Jan 02, 2019 20:08 KVNG ALVAREZ MD Jan 14, 2019 17:01
== END 2019-01-02 11:01 | disposition home or self-care (01) | DRG 393 ==
LOC: M ED 03:24 → M ED INP 14:10 → M PCU 12-28 14:48 → M MSPAV 12-29 12:02
PROVIDERS: ADMIT Internal Medicine Nephrology; ATTEND Internal Medicine
PROC: 0DBW3ZX Excision of Peritoneum, Percutaneous Approach, Diagnostic (ICD-10-PCS; principal; 2018-12-31 15:30)
DX: K40.30 Unilateral inguinal hernia, with obstruction, without gangrene, not specified as recurrent (principal); J69.0 Pneumonitis due to inhalation of food and vomit; N17.9 Acute kidney failure, unspecified; I82.401 Acute embolism and thrombosis of unspecified deep veins of right lower extremity; I50.32 Chronic diastolic (congestive) heart failure; I13.0 Hypertensive heart and chronic kidney disease with heart failure and stage 1 through stage 4 chronic kidney disease, or unspecified chronic kidney disease; N13.30 Unspecified hydronephrosis; K56.609 Unspecified intestinal obstruction, unspecified as to partial versus complete obstruction; E11.9 Type 2 diabetes mellitus without complications; I25.10 Atherosclerotic heart disease of native coronary artery without angina pectoris; I25.2 Old myocardial infarction; Z85.51 Personal history of malignant neoplasm of bladder; Z85.46 Personal history of malignant neoplasm of prostate; N18.9 Chronic kidney disease, unspecified; F79 Unspecified intellectual disabilities; K44.9 Diaphragmatic hernia without obstruction or gangrene; R19.09 Other intra-abdominal and pelvic swelling, mass and lump; Z79.899 Other long term (current) drug therapy; Z79.4 Long term (current) use of insulin; Z88.8 Allergy status to other drugs, medicaments and biological substances; Z91.040 Latex allergy status; F41.9 Anxiety disorder, unspecified; Z95.2 Presence of prosthetic heart valve

== ENCOUNTER → 2019-01-13 | Outpatient (CLI) | payer MEDICARE, MEDICAID ==
[~2019-01-13] MED LIST changes: -QUET1TAB9 PO; +QUET200T2 PO
--- NOTE | 2019-01-13 15:08 | REP ---
REASON: Followup hydronephrosis. COMPARISON: 12/30/2018. Right kidney measures 9.7 x 5 x 4.9 cm and the left kidney measures 9.7 x 5.6 x 5.6 cm. There is mild right sided hydronephrosis and moderate left sided hydronephrosis. There is evidence of proximal hydroureter bilaterally. This was measured at 16 mm on the right and 21 mm on the left. There are no other changes from the prior exam. Electronically Signed by Jasvir Graham DO 01/13/2019 03:15 P
== END ==
LOC: M RAD 08:50
PROVIDERS: ATTEND Urology
DX: N13.30 Unspecified hydronephrosis (principal)

== ENCOUNTER → 2019-01-22 | Outpatient (CLI) | payer MEDICARE, MEDICAID ==
[2019-01-22 14:38] LABS: CALCIUM LEVEL 9.4 MG/DL (8.8-10.2); CREATININE FOR GFR 1.72 MG/DL (0.70-1.30); GLOMERULAR FILTRATION RATE 40.4 (>35); POTASSIUM SERUM 4.7 MEQ/L (3.5-5.1)
== END ==
LOC: M LAB 11:55
PROVIDERS: ATTEND Urology
DX: N13.30 Unspecified hydronephrosis (principal)

== ENCOUNTER → 2019-04-07 | Outpatient (CLI) | payer MEDICARE, MEDICAID ==
[~2019-04-07] MED LIST changes: -GLIM1TAB PO; +GLIM1TAB2 PO; -GLIM2TAB PO; +GLIM2TAB2 PO; -GLIM4TAB PO; +GLIM4TAB3 PO; +SENN-53 PO; -SENN1TAB40 PO
--- NOTE | 2019-04-07 13:45 | REP ---
Clinical: Follow-up. History of right lower extremity deep venous thrombosis . Technique: Islas scale and color Doppler evaluation using linear high frequency transducer. Comparison: 12/30/2018 Findings: Ultrasound examination of the right lower extremity demonstrates occlusive thrombus in the common femoral vein along with nonocclusive chronic thrombus in the superficial femoral vein to popliteal vein. Impression: Occlusive and nonocclusive thrombus as above. Electronically Signed by Timmy Richey MD 04/07/2019 01:36 P
== END ==
LOC: M RAD 12:39
PROVIDERS: ATTEND Surgery
DX: I82.411 Acute embolism and thrombosis of right femoral vein (principal)